=== PATIENT | female | born 1975 | race Two or more races ===

== ENCOUNTER 2020-12-30 11:01 | Outpatient (REF) | payer OTHER, SELFPAY ==
--- NOTE | ~2020-12-30 | MM_ITS ---
EXAMINATION: MM SCREENING DIGITAL BREAST TOMOSYNTHESIS, BILATERAL CLINICAL INFORMATION: Screening. Asymptomatic. The lifetime risk of breast cancer based on the Tyrer-Cuzick Model is 13%. COMPARISON: Mammography: 07/27/2019, 07/24/2018, 07/22/2017, 07/17/2016 TECHNIQUE: Digital breast tomosynthesis is performed in both the craniocaudal and mediolateral oblique views along with computer-aided detection (CAD). Synthesized 2D images are generated from the tomosynthesis. FINDINGS: There are scattered areas of fibroglandular density (ACR BI-RADS breast composition Category b). Parenchymal pattern is similar to prior exams. There is no developing density, interval mass, architectural abnormality. No abnormal calcifications. Skin contours are smooth. Axillary nodes are similar. MM/MM tomosynthesis screening BI IMPRESSION: No significant changes from prior studies. ASSESSMENT: BI-RADS 1: Negative RECOMMENDATION: Routine annual mammography screening. This patient's information was entered into a reminder system with a target due date for their next mammogram.
== END 2020-12-30 11:02 | disposition home or self-care (01) ==
LOC: HO.MAMMO 11:01
PROVIDERS: Visit Provider Student in an Organized Health Care Education/Training Program
DX: Z12.31 Encounter for screening mammogram for malignant neoplasm of breast (principal)
CPT/HCPCS: 77063; 77067

== ENCOUNTER 2022-01-05 12:57 | Outpatient (REF) | payer OTHER, SELFPAY ==
--- NOTE | ~2022-01-05 | MM_ITS ---
EXAMINATION: MM SCREENING DIGITAL BREAST TOMOSYNTHESIS, BILATERAL CLINICAL INFORMATION: Screening. Asymptomatic. The lifetime risk of breast cancer based on the Tyrer-Cuzick Model is 11%. COMPARISON: Mammography: 12/30/2020, 07/27/2019, 07/24/2018 TECHNIQUE: Digital breast tomosynthesis is performed in both the craniocaudal and mediolateral oblique views along with computer-aided detection (CAD). Synthesized 2D images are generated from the tomosynthesis. FINDINGS: There are scattered areas of fibroglandular density (ACR BI-RADS breast composition Category b). There are no significant masses, abnormal calcifications, or other abnormalities. Parenchymal pattern is similar to prior studies. Benign tightly grouped coarse calcifications anterior left breast are again noted. The skin contours are smooth. There are no significant changes from prior studies. MM/MM tomosynthesis screening BI IMPRESSION: No mammographic evidence of malignancy. ASSESSMENT: BI-RADS 2: Benign RECOMMENDATION: Routine annual mammography screening. This patient's information was entered into a reminder system with a target due date for their next mammogram.
== END 2022-01-05 12:58 | disposition home or self-care (01) ==
LOC: HO.MAMMO 12:57
PROVIDERS: PCP Student in an Organized Health Care Education/Training Program; Visit Provider Student in an Organized Health Care Education/Training Program
DX: Z12.31 Encounter for screening mammogram for malignant neoplasm of breast (principal)
CPT/HCPCS: 77063; 77067

== ENCOUNTER 2022-08-15 | Outpatient (REF) | payer OTHER, SELFPAY ==
--- NOTE | ~2022-08-15 | XR_ITS ---
EXAMINATION: XR AP BILATERAL KNEE. XR KNEE, RIGHT CLINICAL INFORMATION: Pain right knee. COMPARISON: AP bilateral knee and right knee 05/27/2019. TECHNIQUE: AP bilateral knee standing and right knee 2 views. FINDINGS: AP bilateral knee: There is mild loss of medial compartment joint space. The lateral compartment joint space is normal. No visible acute fracture, dislocation or subluxation seen. There are no loose bodies seen. No bony erosive changes seen. Right knee: The patellofemoral compartment joint space is preserved. No visible acute fracture, dislocation or joint effusion. No gross bony abnormality. XR/XR knee RT 2V IMPRESSION: 1. Mild loss of medial compartment joint space both knees. No visible acute fracture, dislocation or subluxation seen. Loss of joint space in both knees is unchanged compared to 05/27/2019 exam. 2. Unremarkable right knee exam.
--- NOTE | ~2022-08-15 | XR_ITS ---
EXAMINATION: XR AP BILATERAL KNEE. XR KNEE, RIGHT CLINICAL INFORMATION: Pain right knee. COMPARISON: AP bilateral knee and right knee 05/27/2019. TECHNIQUE: AP bilateral knee standing and right knee 2 views. FINDINGS: AP bilateral knee: There is mild loss of medial compartment joint space. The lateral compartment joint space is normal. No visible acute fracture, dislocation or subluxation seen. There are no loose bodies seen. No bony erosive changes seen. Right knee: The patellofemoral compartment joint space is preserved. No visible acute fracture, dislocation or joint effusion. No gross bony abnormality. XR/XR knee standing BI IMPRESSION: 1. Mild loss of medial compartment joint space both knees. No visible acute fracture, dislocation or subluxation seen. Loss of joint space in both knees is unchanged compared to 05/27/2019 exam. 2. Unremarkable right knee exam.
== END 2022-08-15 00:01 | disposition home or self-care (01) ==
LOC: HO.HOSX
PROVIDERS: Visit Provider Physician Assistant
DX: M17.11 Unilateral primary osteoarthritis, right knee (principal); M25.562 Pain in left knee
CPT/HCPCS: 20610; 73560; 73565; 99202; J1040

== ENCOUNTER 2022-12-17 16:32 | Outpatient (REF) | payer OTHER, SELFPAY ==
--- NOTE | ~2022-12-17 | XR_ITS ---
EXAMINATION: XR KNEE, LEFT CLINICAL INFORMATION: Left knee pain COMPARISON: 08/15/2022 TECHNIQUE: Lateral and sunrise views of the left knee. FINDINGS: Minimal marginal osteophyte formation in the patellofemoral compartment. No joint effusion. No obvious fracture. XR/XR knee LT 2V IMPRESSION: Minimal patellofemoral compartment osteoarthritis.
== END 2022-12-17 16:33 | disposition home or self-care (01) ==
LOC: HO.HOSX 16:32
PROVIDERS: Visit Provider Physician Assistant
DX: M17.12 Unilateral primary osteoarthritis, left knee (principal); M25.561 Pain in right knee
CPT/HCPCS: 20610; 73560; 99212; J1040

== ENCOUNTER 2023-01-07 14:10 | Outpatient (REF) | payer OTHER, SELFPAY ==
--- NOTE | ~2023-01-07 | MM_ITS ---
EXAMINATION: MM SCREENING DIGITAL BREAST TOMOSYNTHESIS, BILATERAL CLINICAL INFORMATION: Screening. Asymptomatic. Family history breast cancer, mother. The lifetime risk of breast cancer based on the Tyrer-Cuzick Model is 17%. COMPARISON: Multiple prior mammography, most recent 12/07/2021. TECHNIQUE: Digital breast tomosynthesis is performed in both the craniocaudal and mediolateral oblique views along with computer-aided detection (CAD). Synthesized 2D images are generated from the tomosynthesis. FINDINGS: There are scattered areas of fibroglandular density (ACR BI-RADS breast composition Category b). There are no significant masses, abnormal calcifications, or other abnormalities. No architectural abnormality or developing density. Benign coarse calcifications again seen retroareolar left breast. The skin contours are smooth. There are no significant changes from prior studies. MM/MM tomosynthesis screening BI IMPRESSION: No mammographic evidence of malignancy. ASSESSMENT: BI-RADS 2: Benign RECOMMENDATION: Routine annual mammography screening. This patient's information was entered into a reminder system with a target due date for their next mammogram.
== END 2023-01-07 14:11 | disposition home or self-care (01) ==
LOC: HO.MAMMO 14:10
PROVIDERS: PCP Student in an Organized Health Care Education/Training Program; Visit Provider Student in an Organized Health Care Education/Training Program
DX: Z12.31 Encounter for screening mammogram for malignant neoplasm of breast (principal); M17.11 Unilateral primary osteoarthritis, right knee
CPT/HCPCS: 20610; 77063; 77067; J7323

== ENCOUNTER → 2023-01-14 13:04 | Outpatient (BNVA) | payer OTHER, SELFPAY | PROVIDERS: PCP Student in an Organized Health Care Education/Training Program; Visit Provider Physician Assistant | DX: M17.11 Unilateral primary osteoarthritis, right knee (principal) | CPT/HCPCS: 20610; J7323 ==

== ENCOUNTER → 2023-01-21 13:55 | Outpatient (BNVA) | payer OTHER, SELFPAY | PROVIDERS: PCP Student in an Organized Health Care Education/Training Program; Visit Provider Physician Assistant | DX: M17.11 Unilateral primary osteoarthritis, right knee (principal) | CPT/HCPCS: 20610; J7323 ==

== ENCOUNTER 2023-02-11 13:00 | Outpatient (RCR) | payer OTHER, SELFPAY ==
--- NOTE | 2023-01-10 12:48 | MHC.PT.EP ---
[facility] [place] Office [place] Office [place] Office [address] Laurie Andrade [address] [phone] F: [phone] F: [phone] F: [phone] F: [phone] Physical Therapy Plan of Care Date of Evaluation: Date of Surgery: NA Diagnosis: GEM KNEE PAIN (KP) Assessment: TAYLOR IS A 47 YO FEMALE, CURRENTLY NOT WORKING - ON DISABILITY. SHE REPORTS KNEE PAIN BEGINNING APROX 9 YEARS AGO, NO FLORENCIA. UNDERWENT RIGHT KNEE AT THAT TIME FOLLOWED BY PT BUT STATES IT ONLY MADE HER WORSE AND FLAIRED UP HER LUPUS. THE KNEE HAS BEEN WORSENING AND NOW THE LEFT KNEE IS BEGINNING TO BE PAINFUL WELL. SHE STATES THAT HER LEGS WILL FREQUENTLY GIVE OUT AND SHE HAS FALLEN. HER PMH IS SIGNIFICANT FOR FMS, OA, LUPUS, SJOGREN'S SYNDROME, LUPUS INDUCED VERTIGO, NEUROPATHY, KNEE , RIGHT THUMB SURGERY, HYSTERECTOMY AND GALL BLADDER REMOVAL. SHE STATES THAT SHE CAN TAKE MONTHS TO RECOVER AFTER A LUPUS FLAIR UP AND THAT IN GENERAL EVERYDAY ACTIVITIES INCREASE HER PAIN AND WEAR ME OUT . SHE LIVES IN AN APARTMENT WITH HER SON WHO IS ABLE TO ASSIST HER. OF NOTE SHE ALSO REPORTS 7 FAMILY MEMBERS LAST YEAR AND 2 MORE THIS YEAR. 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 UPON EXAM IMPAIRMENTS INCLUDE DECREASED ROM OF LOW BACK, HIPS AND KNEES, DECREASED LE STRENGTH, ALTERED MUSCULAR LENGTH AND STRENGTH IMBALANCES FOSTERING POOR MOVEMENT PATTERNS AND ALTERED POSTURE, DECREASED SOFT TISSUE MOBILITY AND INCREASED PAIN. FUNCTIONALLY SHE IS LIMITED WITH SELF CARE AND HOMEMAKING TASKS, DECREASED ABILITY TO PERFORM LIFTING, REACHING, PUSHING, PULLING AND SQUATTING. SHE REPORTS DECREASED ABILITY TO PARTICIPATE IN COMMUNITY AND FITNESS ACTIVITIES AND HAS DISRUPTED SLEEP. 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 Manual therapy to restore motion and function. Therapeutic exercise to improve strength and flexibility. Neuromuscular re-education for posture and balance. Therapeutic activities to return to functional activities of daily living. Electronically signed by: FREDRICK CHAVIRA PT DPT Please sign and return to therapist. Thank you for your referral.
--- NOTE | 2023-05-09 07:59 | MHC.PT.DC ---
[facility] [place] Office [place] Office [place] Office [address] Laurie Andrade [address] [phone] F: [phone] F: [phone] F: [phone] F: [phone] Physical Therapy Discharge Report Diagnosis: GEM KNEE PAIN (KP) Date of Surgery: NA Date of Evaluation: 01/10/23 Date of Discharge: 03/25/23 Treatments to Date: 6 Cancellations to Date: 0 No Shows to Date: 0 Discharge Status: Discharge Summary: 02/11 pt was seen for 6 sessions of PT. Sebastián. Gentle LE ex only. Unable to progress ther ex at this time as pt feels it Flares her Lupus . Plan discussed last session with primary PT and pt. At this time pt requests d/c from PT. Pt encouraged to seek out Lupus care and support. Electronically signed by: Catie Snell PT DPT Please sign and return to therapist. Thank you for your referral.
== END 2023-05-09 07:59 | disposition home or self-care (01) ==
LOC: HO.PT 13:00
PROVIDERS: Visit Provider Podiatrist
DX: M17.12 Unilateral primary osteoarthritis, left knee (principal)
CPT/HCPCS: 97110; 97163; 97530

== ENCOUNTER 2023-06-27 13:36 | Outpatient (AMB) | payer OTHER, SELFPAY ==
[2023-06-27 13:39] VITALS: BP 122/84; PULSE 81; O2SAT 98; BMI 36.3
--- NOTE | 2023-06-27 13:39 | A.OFFVIS_ITS ---
Intake Vital Signs 06/27/23 13:39 Height 5 ft 6 in Weight 224 lb 13.944 oz BMI 36.3 BP 122/84 Blood Pressure Location Rt brachial Position Sitting Pulse 81 Pulse Source Doppler Pulse Oximetry (%) 98 Oxygen Delivery Method Room Air Intake Visit Reasons: Asthma Allergies No Known Allergies Allergy (Verified 06/27/23 13:43) HPI Asthma HPI Details 48-year-old lady, active 5 pack-year smoker, with underlying history of flu post on hydroxychloroquine, environmental allergies under environmental health sanitarian care, asthma, and possible pulmonary nodules referred for pulmonary evaluation. 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 She has had a recent 2D echocardiogram at [facility], and pulmonary function test at [facility]. She complains of lower extremity edema, orthopnea, and dyspnea on exertion. She is using Symbicort 80 and albuterol MDI 2 to 3 times a day. Patient is also on Lety, loratadine, hydroxyzine, and Zyrtec. Patient states that she has multiple relatives with different types of cancer, including maternal aunt and maternal grandfather with lung cancer. She denies exposure to industrial dusts. [facility] Medical History (Updated 06/27/23 @ 14:14 by Seth Gama MD) Anxiety and depression Asthma Discoid lupus Fibromyalgia GERD (gastroesophageal reflux disease) H/O Sjogren's disease Lupus Migraine Neuropathy Vertigo Social History Patient Tobacco Use Status: Current everyday Tobacco user Cigarettes Per Day: 7 Current occupational status: unemployed Review of Systems Const Denies daytime sleepiness, Denies excessive sweating, Denies fatigue, Denies fever(s), Denies lethargy, Denies malaise, Denies night sweats, Denies snoring and Denies weight loss Eyes Denies blurry vision and Denies itchy eyes ENT Denies nasal congestion, Denies post nasal drip, Denies sinus pain, Denies sinus pressure and Denies other ( Thrush) Card Denies chest pain, Reports pedal edema, Denies dyspnea, Reports dyspnea on exertion, Denies orthopnea and Denies paroxysmal nocturnal dyspnea Resp Denies cough, Denies hemoptysis, Denies excessive phlegm production, Denies dyspnea, Reports dyspnea on exertion, Denies snoring and Denies wheezing GI Denies abdominal pain and Denies heartburn Musc Denies myalgias, Denies arthralgias and Denies joint swelling Skin/Breast Denies rash Neuro Denies memory loss and Denies seizure-like activity Psych Denies abnormal sleep pattern, Denies anxiety and Denies memory loss Endo Denies excessive sweating, Denies fatigue and Denies heat intolerance Tuan/Lymph Denies easy bruising Aller/Immun Denies itchy eyes, Denies seasonal rhinorrhea and Denies wheezing Physical Exam Vital Signs: Last Vital Signs Pulse 81 06/27/23 13:39 BP 122/84 06/27/23 13:39 Pulse Ox 98 06/27/23 13:39 Oxygen Delivery Method Room Air 06/27/23 13:39 BMI result Body Mass Index 36.3 Const General: no acute distress and alert Nutritional Appearance: not obese Orientation/consciousness: Other orientation findings ( oriented) HEENT Head: Yes atraumatic Eyes General: appearance normal, both eyes and all related structures Sclerae: sclerae normal EOM: EOMs intact bilaterally Neck Neck: Yes supple Lymphatic: no lymphadenopathy noted Resp Effort & Inspection: normal respiratory effort and no use of accessory muscles Auscultation: clear to auscultation bilaterally Cardio Rate: regular rate Rhythm: regular rhythm Heart sounds: no gallops, no murmurs and no rubs Skin General skin exam: other ( warm) Extrem General: No clubbing, No cyanosis and Yes edema (1+ bilateral) Assessment & Plan Assessment & Plan (1) Dyspnea on exertion: Code(s): R06.09 - Other forms of dyspnea Plan: Likely multifactorial with contribution from underlying pulmonary, cardiac, and obesity/deconditioning etiologies. Will request 2D echo results from [facility]. (2) Lupus: Code(s): M32.9 - Systemic lupus erythematosus, unspecified Plan: Underlying low post with possible lung involvement currently hydroxychloroquine. Will obtain CT chest for further evaluation. (3) Asthma: Code(s): J45.909 - Unspecified asthma, uncomplicated Plan: Underlying possible asthma appears to be reasonably controlled on Symbicort 80 and albuterol MDI. Continue current regimen. Orders: Orders CT chest wo IV con Today M32.9 - Systemic lupus erythematosus, unspecified Coding Level of Care Code New Pt Level 4 (82531) Diagnoses Dyspnea on exertion R06.09 Lupus M32.9 Asthma J45.909
== END 2023-06-27 14:07 | disposition home or self-care (01) ==
PROVIDERS: PCP Student in an Organized Health Care Education/Training Program; Visit Provider Internal Medicine Pulmonary Disease
DX: R06.09 Other forms of dyspnea (principal); M32.9 Systemic lupus erythematosus, unspecified; J45.909 Unspecified asthma, uncomplicated
CPT/HCPCS: 99204

== ENCOUNTER → 2023-06-27 13:36 | Outpatient (BNVA) | payer OTHER, SELFPAY | PROVIDERS: PCP Student in an Organized Health Care Education/Training Program; Visit Provider Internal Medicine Pulmonary Disease | DX: J45.909 Unspecified asthma, uncomplicated (principal); R06.09 Other forms of dyspnea; M32.9 Systemic lupus erythematosus, unspecified; Z79.899 Other long term (current) drug therapy | CPT/HCPCS: 99202 ==

== ENCOUNTER 2023-07-18 13:51 | Outpatient (REF) | payer OTHER, SELFPAY ==
--- NOTE | ~2023-07-18 | CT_ITS ---
EXAMINATION: CT CHEST WITHOUT CONTRAST CLINICAL INFORMATION: Systemic lupus COMPARISON: Previous chest x-ray most recent July 2015 TECHNIQUE: Multidetector volumetric CT imaging of the chest was done. Axial MIP volume rendering provided. Sagittal and coronal reformatted images were obtained. This CT examination was performed using dose optimization techniques as appropriate, variously including the following: *Automated exposure control *Adjustment of mA and/or kV according to patient size (this includes techniques or standardized protocols for targeted exams where dose is matched to indication/reason for exam; i.e. 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 These appear peribronchiolar centrilobular in distribution. Largest nodules measure 2 to 3 mm. No bronchiectasis. 4 mm peripheral or subpleural right lower lobe nodule axial image 295 series 5 probably representing a subpleural lymph node. The lungs are otherwise clear. No increased interstitial markings. No emphysema. No endobronchial or endotracheal lesion. MEDIASTINUM: Small mediastinal lymph nodes. No enlarged lymph nodes. Normal heart size. No pericardial effusion. CORONARY ARTERY CALCIFICATION: None visualized on this study. PLEURA: There is no pleural effusion. No pleural mass or thickening. AXILLA: Upper normal-size bilateral axillary lymph nodes. No chest wall mass. UPPER ABDOMEN: Fatty liver. The gallbladder has been removed. OSSEOUS STRUCTURES: Unremarkable. CT/CT chest wo IV con IMPRESSION: Innumerable small predominantly upper lobe centrilobular peribronchial semisolid nodules largest measuring 2 to 3 mm. Differential would include bronchiolitis related to smoking, airways disease, pneumoconiosis, granulomatous disease and hypersensitivity pneumonitis. No evidence of basilar interstitial lung disease characteristic of lupus involvement. Fleischner guidelines were followed.
== END 2023-07-18 13:52 | disposition home or self-care (01) ==
LOC: HO.CT 13:51
PROVIDERS: PCP Student in an Organized Health Care Education/Training Program; Visit Provider Internal Medicine Pulmonary Disease
DX: M32.9 Systemic lupus erythematosus, unspecified (principal)
CPT/HCPCS: 71250

== ENCOUNTER 2023-08-01 14:11 | Outpatient (AMB) | payer OTHER, SELFPAY ==
[2023-08-01 14:12] VITALS: BP 110/67; PULSE 97; O2SAT 97; BMI 36.3
--- NOTE | 2023-08-01 14:12 | A.OFFVIS_ITS ---
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 She has had a recent 2D echocardiogram at [facility], and pulmonary function test at [facility]. She complains of lower extremity edema, orthopnea, and dyspnea on exertion. She is using Symbicort 80 and albuterol MDI 2 to 3 times a day. Patient is also on Lety, loratadine, hydroxyzine, and Zyrtec. Patient states that she has multiple relatives with different types of cancer, including maternal aunt and maternal grandfather with lung cancer. She denies exposure to industrial dusts. After the last office visit she had her CT chest that showed findings consistent with respiratory bronchiolitis versus extrinsic allergic alveolitis. She also complains of worsening lupus symptoms. 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 [facility] Medical History (Updated 08/01/23 @ 14:58 by Seth Gama MD) GERD (gastroesophageal reflux disease) Vertigo Asthma Migraine Anxiety and depression Fibromyalgia Neuropathy H/O Sjogren's disease Discoid lupus Lupus Social History Patient Tobacco Use Status: Current everyday Tobacco user Cigarettes Per Day: 7 Current occupational status: unemployed Review of Systems Const Denies daytime sleepiness, Denies excessive sweating, Denies fatigue, Denies fever(s), Denies lethargy, Denies malaise, Denies night sweats, Denies snoring and Denies weight loss Eyes Denies blurry vision and Denies itchy eyes ENT Denies nasal congestion, Denies post nasal drip, Denies sinus pain, Denies sinus pressure and Denies other ( Thrush) Card Denies chest pain, Denies pedal edema, Denies dyspnea, Denies orthopnea and Denies paroxysmal nocturnal dyspnea Resp Denies cough, Denies hemoptysis, Denies excessive phlegm production, Denies dyspnea, Denies snoring and Denies wheezing GI Denies abdominal pain and Denies heartburn Musc Reports myalgias, Reports arthralgias and Denies joint swelling Skin/Breast Denies rash Neuro Denies memory loss and Denies seizure-like activity Psych Denies abnormal sleep pattern, Denies anxiety and Denies memory loss Endo Denies excessive sweating, Denies fatigue and Denies heat intolerance Tuan/Lymph Denies easy bruising Aller/Immun Denies itchy eyes, Denies seasonal rhinorrhea and Denies wheezing Physical Exam Vital Signs: Last Vital Signs Pulse 97 08/01/23 14:12 BP 110/67 08/01/23 14:12 Pulse Ox 97 08/01/23 14:12 Oxygen Delivery Method Room Air 08/01/23 14:12 BMI result Body Mass Index 36.3 Const General: no acute distress and alert Nutritional Appearance: obese Orientation/consciousness: Other orientation findings ( oriented) HEENT Head: Yes atraumatic Eyes General: appearance normal, both eyes and all related structures Sclerae: sclerae normal EOM: EOMs intact bilaterally Neck Neck: Yes supple Lymphatic: no lymphadenopathy noted Resp Effort & Inspection: normal respiratory effort and no use of accessory muscles Auscultation: clear to auscultation bilaterally Cardio Rate: regular rate Rhythm: regular rhythm Heart sounds: no gallops, no murmurs and no rubs Skin General skin exam: other ( warm) Extrem General: No clubbing, No cyanosis and No edema Assessment & Plan Assessment & Plan (1) Respiratory bronchiolitis associated interstitial lung disease: Code(s): J84.115 - Respiratory bronchiolitis interstitial lung disease (2) Dyspnea on exertion: Code(s): R06.09 - Other forms of dyspnea (3) Asthma: Code(s): J45.909 - Unspecified asthma, uncomplicated (4) Lupus: Code(s): M32.9 - Systemic lupus erythematosus, unspecified Plan CT scan with findings consistent with respiratory bronchiolitis versus extrinsic allergic alveolitis. Will start prednisone 40 mg daily for 30 days and reassess. Patient is interested in 2 switching Rheumatology to [facility]. Will request a consultation. Will continue on Symbicort and albuterol MDI/nebs. Orders: Referrals Rheumatology Referral M32.9 - Systemic lupus erythematosus, unspecified Medications: New prednisone 40 mg (2 x 20 mg) PO DAILY 60 tabs 0RF 30 days Coding Level of Care Code Est Pt Level 4 (07962) Diagnoses Respiratory bronchiolitis associated interstitial lung disease J84.115 Dyspnea on exertion R06.09 Asthma J45.909 Lupus M32.9
== END 2023-08-01 14:39 | disposition home or self-care (01) ==
PROVIDERS: PCP Student in an Organized Health Care Education/Training Program; Visit Provider Internal Medicine Pulmonary Disease
DX: J84.115 Respiratory bronchiolitis interstitial lung disease (principal); R06.09 Other forms of dyspnea; J45.909 Unspecified asthma, uncomplicated; M32.9 Systemic lupus erythematosus, unspecified
CPT/HCPCS: 99214

== ENCOUNTER → 2023-08-01 14:11 | Outpatient (BNVA) | payer OTHER, SELFPAY | PROVIDERS: PCP Student in an Organized Health Care Education/Training Program; Visit Provider Internal Medicine Pulmonary Disease | DX: J84.115 Respiratory bronchiolitis interstitial lung disease (principal); R06.09 Other forms of dyspnea; J45.909 Unspecified asthma, uncomplicated; M32.9 Systemic lupus erythematosus, unspecified | CPT/HCPCS: 99212 ==

== ENCOUNTER 2023-08-28 14:50 | Outpatient (AMB) | payer OTHER, SELFPAY ==
[2023-08-28 14:54] VITALS: BP 142/70; PULSE 89; TEMP 36.4; O2SAT 96; BMI 37.3
--- NOTE | 2023-08-28 14:54 | MHC.OFFVIS ---
Intake Vital Signs 08/28/23 14:54 Height 5 ft 6 in Weight 231 lb 0.711 oz BMI 37.3 BP 142/70 H Blood Pressure Location Rt brachial Position Sitting Pulse 89 Pulse Source Pulse Oximeter Temp 97.6 F Temp Source Skin Pulse Oximetry (%) 96 Oxygen Delivery Method Room Air Intake Visit Reasons: Sle Intake Note: New patient referred to us for SLE. Former patient of Dr. Pineda, [facility]. Last seen early this year. Military Equipment Specialist Required: No Accompanied by: Self / Same As Patient Allergies No Known Allergies Allergy (Verified 08/28/23 15:00) Medication List - Last Reconciled 08/28/23 by Seamus Fung MD acetaminophen 1,000 mg PO Q8H PRN albuterol sulfate mg inhalation Q6H PRN albuterol sulfate 90 mcg/actuation (Ventolin HFA) 2 puffs inhalation ONCE PRN alclometasone 0.05% appl topical BID PRN amitriptyline 10 mg PO BEDTIME betamethasone dipropionate 0.05% topical BID PRN budesonide-formoterol 80-4.5 mcg/actuation (Symbicort) 1 puff inhalation BID PRN cetirizine 10 mg PO DAILY ciclopirox 1% topical clobetasol 0.05% 1 appl topical BID clonazepam 1 mg PO TID PRN clonidine HCl 0 mg PO CPAP As directed cyanocobalamin (vitamin B-12) 500 mcg PO DAILY diclofenac sodium 1% topical BID duloxetine 30 mg PO BID famotidine 20 mg PO BID fexofenadine 180 mg PO DAILY fluocinonide 0.05% appl topical BID PRN fluticasone propionate 220 mcg/actuation (Flovent HFA) inhalation hydrocortisone 2.5% topical hydroxychloroquine 200 mg PO BID hydroxyzine HCl 25 mg PO Q8H PRN lidocaine 5% 1 patch topical DAILY PRN loratadine 10 mg PO BID losartan 50 mg PO DAILY meclizine 25 mg PO TID PRN mirabegron ER (Myrbetriq) 50 mg PO DAILY montelukast 10 mg PO QPM omeprazole 20 mg PO DAILY ondansetron HCl 8 mg PO DAILY peg 3350-electrolytes 236-22.74-6.74 -5.86 gram (GaviLyte-G) mL PO pilocarpine HCl 5 mg PO QID prednisone 40 mg (2 x 20 mg) PO DAILY 30 days pregabalin 200 mg PO BID riboflavin (vitamin B2) 400 mg PO DAILY riboflavin (vitamin B2) 100 mg PO DAILY risperidone 2 mg PO BEDTIME rizatriptan mg PO HPI HPI Comments History of Present Illness Details This is a 48-year-old female with a past medical history of SLE who presents as a new patient. Patient used to follow-up with Dr. Pineda. She was unable to get an appointment with dr. Marquez at his new practice. She states that she was diagnosed with SLE around 17 years ago when she developed a butterfly rash and diffuse joint pain. She stated that she was treated with prednisone consistently at 5 mg daily for about 8 years. She was also started on hydroxychloroquine. She has been on hydroxychloroquine since her diagnosis. She states that she took methotrexate for 2 months about 7 years ago and according to patient she lost her smell and taste afterwards. He was told that this was likely a side effect of methotrexate. It did not recover when methotrexate was discontinued. Five years ago she was on Benlysta infusions for about 8 months. She stated that was helping reduce the frequency of her flare-ups, but eventually it became ineffective. Per patient 5 years ago patient presented to the hospital with right lower extremity DVT. According to patient she was on blood thinners for some time. States that she has been wearing compression stockings for about 10 years. Patient was recently evaluated by a quantitative manager for respiratory bronchiolitis versus extrinsic allergic alveolitis and was started on prednisone 40 mg daily a month ago with improvement of her joint pain. [facility] Medical History (Updated 08/28/23 @ 15:53 by Seamus Fung MD) Dvt femoral (deep venous thrombosis) Gout GERD (gastroesophageal reflux disease) Vertigo Asthma Migraine Anxiety and depression Fibromyalgia Neuropathy H/O Sjogren's disease Discoid lupus Lupus Surgical History Hx of hysterectomy Hx of thumb surgery Hx of knee surgery Family History Other Arthritis Lupus Social History Household Members: None Alcohol intake: former Patient Tobacco Use Status: Current everyday Tobacco user Cigarettes Per Day: 7 Current occupational status: unemployed Female Reproductive History Menstrual Total pregnancies: 4 Number of Living Children: 4 Review of Systems Const Reports weight gain Eyes Reports dry eyes Card Reports dyspnea Resp Reports dyspnea GI Reports constipation and Reports heartburn Musc Reports arthralgias, Reports joint swelling and Reports stiffness Skin/Breast Reports alopecia and Reports rash Psych Reports abnormal sleep pattern, Reports anxiety and Reports depression Physical Exam Vital Signs: Last Vital Signs Temp 97.6 F 08/28/23 14:54 Pulse 89 08/28/23 14:54 BP 142/70 H 08/28/23 14:54 Pulse Ox 96 08/28/23 14:54 Oxygen Delivery Method Room Air 08/28/23 14:54 BMI result Body Mass Index 37.3 Const General: cooperative, healthy appearing and comfortable Nutritional Appearance: obese morbidly obese Orientation/consciousness: patient oriented x3 Limitations: ambulation with cane HEENT Head: Yes normocephalic and Yes atraumatic Mouth: moist mucous membranes Resp Effort & Inspection: normal respiratory effort and able to speak in complete sentences Auscultation: clear to auscultation bilaterally Cardio Rate: regular rate Skin Other: Hypopigmented and hyperpigmented rashes on face. No active rashes Neuro General: patient oriented x3 Extrem Other: Multiple fibromyalgia tender points No active synovitis Normal nailfold capillaroscopy Assessment & Plan Assessment & Plan (1) Lupus: Code(s): M32.9 - Systemic lupus erythematosus, unspecified Plan: This is a 48-year-old female who presents for evaluation of SLE. Per patient it was diagnosed 17 years ago, she initially presented with a butterfly rash and diffuse joint pain. She has been on hydroxychloroquine throughout. Was on prednisone consistently for 8 years then, it was use only as needed for flare-ups. She could not tolerate methotrexate and according to patient Benlysta lost effectiveness after 8 months. Patient is on 40 mg of prednisone prescribed by Pulmonary for a bronchiolitis episode. Likely the majority of her lupus symptoms are masked. Check basic labs. Will retrieve records from patient's previous outer diameter grinder Dr. Collazo Continue hydroxychloroquine 200 mg Twice daily. Refilled Patient will see her sash sticker soon. Advised patient to ask them to fax me their office report Follow-up in 1 month Plan I spent 46 minutes reviewing patient's chart, evaluating patient, ordering diagnostic workup, counseling patient and documenting in the chart Orders: Orders C Reactive Protein Today M32.9 - Systemic lupus erythematosus, unspecified T Spot TB Today Z11.7 - Encounter for testing for latent tuberculosis infection Immunofixation Pnl, Serum Today M32.9 - Systemic lupus erythematosus, unspecified Protein Electrophoresis, Serum Today M32.9 - Systemic lupus erythematosus, unspecified Anti DNA DS Antibody Today M32.9 - Systemic lupus erythematosus, unspecified Rheumatoid Factor Today M25.50 - Pain in unspecified joint Cyclic Citrullinated Peptide Today M25.50 - Pain in unspecified joint Beta-2 Glycoprotein Antibody Today I82.419 - Acute embolism and thrombosis of unspecified femoral vein Cardiolipin Antibodies Today I82.419 - Acute embolism and thrombosis of unspecified femoral vein Complete Blood Count Auto Diff Today M32.9 - Systemic lupus erythematosus, unspecified Comprehensive Met. Panel Today M32.9 - Systemic lupus erythematosus, unspecified Erythrocyte Sedimentation Rate Today M32.9 - Systemic lupus erythematosus, unspecified Hepatitis A,B,C Profile Today Z11.59 - Encounter for screening for other viral diseases TALISHA Reflex Titer and Pattern Today M32.9 - Systemic lupus erythematosus, unspecified Anti Extractable Nuclear Ag Today M32.9 - Systemic lupus erythematosus, unspecified Complement C3 Today M32.9 - Systemic lupus erythematosus, unspecified Complement C4 Today M32.9 - Systemic lupus erythematosus, unspecified Protein Creatinine Ratio, Ur Today M32.9 - Systemic lupus erythematosus, unspecified Sjogren's Antibodies Today M32.9 - Systemic lupus erythematosus, unspecified UA w Microscopic Today M32.9 - Systemic lupus erythematosus, unspecified Lupus Anticoagulant Panel Today I82.419 - Acute embolism and thrombosis of unspecified femoral vein Thiopurine Methyltransferase Today Z51.81 - Encounter for therapeutic drug level monitoring, Z79.624 - superintendent marine oil terminal (current) use of inhibitors of nucleotide synthesis Medications: New hydroxychloroquine 200 mg PO BID 180 tabs 1RF Coding Level of Care Code New Pt Level 4 (22850) Diagnoses Lupus M32.9
== END 2023-08-28 15:44 | disposition home or self-care (01) ==
PROVIDERS: PCP Student in an Organized Health Care Education/Training Program; Referring Provider Student in an Organized Health Care Education/Training Program; Visit Provider Student in an Organized Health Care Education/Training Program
DX: M32.9 Systemic lupus erythematosus, unspecified (principal)
CPT/HCPCS: 99204

== ENCOUNTER 2023-08-28 14:50 | Outpatient (REF) | payer OTHER, SELFPAY ==
[2023-08-28 16:26] LABS: MANUAL DIFF FLAG NO
[2023-08-28 16:28] LABS: Basophils Absolute Auto 0.1 X10*3/uL (0.0-0.2); Basophils Percent Auto 0.4 % (0-2); Eosinophils Absolute Auto 0.2 X10*3/uL (0.0-0.4); Eosinophils Percent Auto 1.4 % (0-4); Hematocrit 37.9 % (37.0-47.0); Hemoglobin 12.5 g/dl (12.0-16.0); Imm Gran Abs Auto 0.09 X10*3/uL (0.00-0.03); Imm Gran Pct Auto 0.6 % (0.0-0.4); Lymphocytes Absolute Auto 2.4 X10*3/uL (1.2-4.9); Lymphocytes Percent Auto 15.1 % (20-40); Mean Corpuscular Hemoglobin 30.2 pg (27.0-33.0); Mean Corpuscular Volume 91.5 fL (80.0-98.0); Mean Platelet Volume 11.6 fL (9.4-12.3); Monocytes Absolute Auto 0.6 X10*3/uL (0.1-1.2); Neutrophils Absolute Auto 12.2 x10*3/uL (2.0-8.3); Neutrophils Percent Auto 78.5 % (45-73); Platelet Count 222 X10*3/uL (160-400); Red Blood Count 4.14 X10*6/uL (4.20-5.50); Red Cell Distribution Width 14.3 % (11.0-16.0); White Blood Count 15.6 X10*3/uL (4.8-10.8)
[2023-08-28 16:50] LABS: Rheumatoid Factor < 13.0 IU/mL (<15.0)
[2023-08-28 16:59] LABS: Alanine Aminotransferase 39 U/L (0-31); Albumin Level 3.7 g/dL (3.5-5.0); Alkaline Phosphatase 50 U/L (39-117); Anion Gap 13 (12-20); Aspartate Amino Transferase 16 U/L (5-31); Bilirubin Total 0.2 mg/dL (0.0-1.0); C Reactive Protein 0.86 mg/dL (< or = 0.50); Calcium 8.8 mg/dL (8.4-10.2); Carbon Dioxide 22 mmol/L (22-29); Chloride 105 mmol/L (96-108); Estimated Glomerular Filt Rate > 60; Glucose Random 124 mg/dL (60-115); Potassium 3.8 mmol/L (3.3-5.1); Sodium 136 mmol/L (135-145); Total Protein 7.2 g/dL (6.5-8.0)
[2023-08-28 17:08] LABS: Erythrocyte Sedimentation Rate 13 MM/HR (0-20)
[2023-08-28 17:25] LABS: Appearance Urine Clear; Color Urine Yellow; Glucose Urine UA Negative (Negative); Leukocyte Esterase Urine Negative (Negative); Nitrite Urine Negative (Negative); PH 5.5 (5.0-9.0); Specific Gravity - Urine 1.025 (1.005-1.025); Urine Blood Negative (Negative); Urine Ketones Trace mg/dL (Negative); Urine Protein Negative (Neg-Trace)
[2023-08-28 17:28] LABS: Bacteria Urine Trace (None Seen); Hyaline Casts Urine 0-2 /LPF (0-2); Squamous Epithelial Cell Urine 0-2 /HPF (0-2); WBC Urine 0-5 /HPF (0-5)
[2023-08-28 17:38] LABS: Protein/Creatinine Ratio, Ur 0.06 (<0.2); Total Protein Urine Random 11 mg/dL (<12)
[2023-08-28 17:52] LABS: Blood Urea Nitrogen 13 mg/dL (9-16)
[2023-08-29 04:27] LABS: HBS Num1 6.43 mIU/mL (0-7.99); HBc Num1 0.08 S/CO (0.00-0.79); HBsAGNum1 0.27 S/CO (0.00-0.99); Hepatitis A Antibody IgM 0.19 Index (0-0.79); Hepatitis B Core Antibody Nonreactive (Nonreactive); Hepatitis B Surface Antigen Negative (Negative); ~HepC Num1 0.05 S/CO (0.00-0.79); ~Hepatitis A Antibody IgM Nonreactive (Nonreactive); ~Hepatitis B Surface Antibody NONREACTIVE (Nonreactive); ~Hepatitis C Antibody Nonreactive (Nonreactive)
[2023-08-29 20:13] LABS: Complement C3 116 mg/dL (83-193)
[2023-08-30 11:58] LABS: Cyclic Citrullinated Peptide <16 UNITS
[2023-08-30 12:58] LABS: Anti DNA DS Antibody 3 IU/mL; Antibody to SS-A Antigen >8.0 POS AI (<1.0 NEG); Antibody to SS-B Antigen <1.0 NEG AI (<1.0 NEG); Cardiolipin IgG Ab <2.0 GPL-U/mL; Cardiolipin IgM Ab <2.0 MPL-U/mL; SM/Ribonucleoprotein Ab >8.0 POS AI (<1.0 NEG); Smith Protein >8.0 POS AI (<1.0 NEG)
[2023-08-31 14:24] LABS: TS Negative Control Passed; TS Panel A 0; TS Panel B 0; TS Positive Control Passed; TSpotTB Negative (Negative)
[2023-09-02 11:33] LABS: Prot Elec - Albumin 4.4 g/dL (3.8-4.8); Prot Elec - Alpha1 0.2 g/dL (0.2-0.3); Prot Elec - Alpha2 0.5 g/dL (0.5-0.9); Prot Elec - Beta 1 0.4 g/dL (0.4-0.6); Prot Elec - Beta 2 0.4 g/dL (0.2-0.5); Prot Elec - Gamma 1.1 g/dL (0.8-1.7)
[2023-09-02 14:43] LABS: Anti Nuclear Antibody Screen POSITIVE (NEGATIVE)
[2023-09-03 05:24] LABS: PTT (LAC) Screen 35 sec (<=40)
[2023-09-03 12:29] LABS: IgA 344 mg/dL (47-310); IgG 1511 mg/dL (600-1640); IgM 64 mg/dL (50-300)
[2023-09-04 13:14] LABS: Beta-2 Glycoprotein IgG <2.0 U/mL (<20.0); Beta-2 Glycoprotein IgM <2.0 U/mL (<20.0)
[2023-09-12 21:54] LABS: TPMT Activity 9
== END 2023-08-28 14:51 | disposition home or self-care (01) ==
LOC: HO.LAB 14:50
PROVIDERS: PCP Student in an Organized Health Care Education/Training Program; Referring Provider Student in an Organized Health Care Education/Training Program; Visit Provider Student in an Organized Health Care Education/Training Program
DX: M32.9 Systemic lupus erythematosus, unspecified (principal); M25.50 Pain in unspecified joint; Z11.7 Encounter for testing for latent tuberculosis infection; Z11.59 Encounter for screening for other viral diseases; Z51.81 Encounter for therapeutic drug level monitoring; Z79.624 Long term (current) use of inhibitors of nucleotide synthesis; Z79.899 Other long term (current) drug therapy; Z86.718 Personal history of other venous thrombosis and embolism
CPT/HCPCS: 36415; 80053; 81001; 82570; 82784; 84156; 84165; 84433; 85025; 85597; 85598; 85613; 85652; 85730; 86038; 86039; 86140; 86146; 86147; 86160; 86200; 86225; 86235; 86334; 86431; 86481; 86704; 86706; 86709; 86803; 87340; 99202

== ENCOUNTER 2023-08-29 13:51 | Outpatient (AMB) | payer OTHER, SELFPAY ==
[2023-08-29 13:52] VITALS: BP 102/60; PULSE 89; O2SAT 98; BMI 37.2
--- NOTE | 2023-08-29 13:52 | A.OFFVIS_ITS ---
Intake Vital Signs 08/29/23 13:52 Height 5 ft 6 in Weight 230 lb 6.129 oz BMI 37.2 BP 102/60 Blood Pressure Location Lt brachial Position Sitting Pulse 89 Pulse Source Doppler Pulse Oximetry (%) 98 Oxygen Delivery Method Room Air Intake Visit Reasons: Asthma Allergies No Known Allergies Allergy (Verified 08/29/23 13:57) HPI Asthma HPI Details 48-year-old lady, active 5 pack-year smo ker, with underlying history of flu post on hydroxychloroquine, environmental allergies under cutter finisher care, asthma, and possible pulmonary nodules referred for pulmonary evaluation. After the last office visit patient has been started on prednisone 40 mg daily and now states that her symptoms have improved significantly. She did switch her mechanical integrity specialist to [facility]. Patient does have underlying obstructive sleep apnea with recent significant changes in weight and a remote sleep study. [facility] Medical History (Updated 08/29/23 @ 14:11 by Seth Gama MD) Dvt femoral (deep venous thrombosis) Gout GERD (gastroesophageal reflux disease) Vertigo Asthma Migraine Anxiety and depression Fibromyalgia Neuropathy H/O Sjogren's disease Discoid lupus Lupus Surgical History Hx of hysterectomy Hx of thumb surgery Hx of knee surgery Family History Other Arthritis Lupus Social History Household Members: None Alcohol intake: former Patient Tobacco Use Status: Current everyday Tobacco user Cigarettes Per Day: 7 Current occupational status: unemployed Review of Systems Const Denies daytime sleepiness, Denies excessive sweating, Denies fatigue, Denies fever(s), Denies lethargy, Denies malaise, Denies night sweats, Denies snoring and Denies weight loss Eyes Denies blurry vision and Denies itchy eyes ENT Denies nasal congestion, Denies post nasal drip, Denies sinus pain, Denies sinus pressure and Denies other ( Thrush) Card Denies chest pain, Denies pedal edema, Denies dyspnea, Denies orthopnea and Denies paroxysmal nocturnal dyspnea Resp Denies cough, Denies hemoptysis, Denies excessive phlegm production, Denies dyspnea, Denies snoring and Denies wheezing GI Denies abdominal pain and Denies heartburn Musc Denies myalgias, Denies arthralgias and Denies joint swelling Skin/Breast Denies rash Neuro Denies memory loss and Denies seizure-like activity Psych Denies abnormal sleep pattern, Denies anxiety and Denies memory loss Endo Denies excessive sweating, Denies fatigue and Denies heat intolerance Tuan/Lymph Denies easy bruising Aller/Immun Denies itchy eyes, Denies seasonal rhinorrhea and Denies wheezing Physical Exam Vital Signs: Last Vital Signs Pulse 89 08/29/23 13:52 BP 102/60 08/29/23 13:52 Pulse Ox 98 08/29/23 13:52 Oxygen Delivery Method Room Air 08/29/23 13:52 BMI result Body Mass Index 37.2 Const General: no acute distress and alert Nutritional Appearance: obese Orientation/consciousness: Other orientation findings ( oriented) HEENT Head: Yes atraumatic Eyes General: appearance normal, both eyes and all related structures Sclerae: sclerae normal EOM: EOMs intact bilaterally Neck Neck: Yes supple Lymphatic: no lymphadenopathy noted Resp Effort & Inspection: normal respiratory effort and no use of accessory muscles Auscultation: clear to auscultation bilaterally Cardio Rate: regular rate Rhythm: regular rhythm Heart sounds: no gallops, no murmurs and no rubs Skin General skin exam: other ( warm) Extrem General: No clubbing, No cyanosis and No edema Assessment & Plan Assessment & Plan (1) Respiratory bronchiolitis associated interstitial lung disease: Code(s): J84.115 - Respiratory bronchiolitis interstitial lung disease Plan: Versus extrinsic allergy test. Symptomatically with significant improvement on prednisone 40 mg daily. Will start on weekly taper. If remains mostly symptom free off prednisone, will consider repeating CT chest. (2) AIRAM (obstructive sleep apnea): Code(s): G47.33 - Obstructive sleep apnea (adult) (pediatric) Plan: Remote sleep study in 2016, recent UA changes and unrestful sleep. Williams Sleepiness Scale score of 15. Will obtain home sleep study. Orders: Orders RT home sleep study Today G47.33 - Obstructive sleep apnea (adult) (pediatric) Medications: New prednisone Take 3 tabs daily for 7 days, then Take 2 tabs daily for 7 days, then Take 1 tab daily for 7 days, then Take 1/2 tab daily for 7 days. 10 mg PO DIRECTED 46 tabs 0RF G47.33 - Obstructive sleep apnea (adult) (pediatric) Discontinued 2 prednisone Discontinued Reason: Doctor's Order 40 mg (2 x 20 mg) PO DAILY 60 tabs 0RF 30 days Coding Level of Care Code Est Pt Level 4 (59397) Diagnoses Respiratory bronchiolitis associated interstitial lung disease J84.115 AIRAM (obstructive sleep apnea) G47.33
== END 2023-08-29 14:08 | disposition home or self-care (01) ==
PROVIDERS: PCP Student in an Organized Health Care Education/Training Program; Visit Provider Internal Medicine Pulmonary Disease
DX: J84.115 Respiratory bronchiolitis interstitial lung disease (principal); G47.33 Obstructive sleep apnea (adult) (pediatric)
CPT/HCPCS: 99214

== ENCOUNTER → 2023-08-29 13:51 | Outpatient (BNVA) | payer OTHER, SELFPAY | PROVIDERS: PCP Student in an Organized Health Care Education/Training Program; Visit Provider Internal Medicine Pulmonary Disease | DX: J84.115 Respiratory bronchiolitis interstitial lung disease (principal); G47.33 Obstructive sleep apnea (adult) (pediatric) | CPT/HCPCS: 99212 ==

== ENCOUNTER 2023-09-18 11:39 | Outpatient (AMB) | payer OTHER, SELFPAY ==
[2023-09-18 11:51] VITALS: BP 126/78; PULSE 74; TEMP 36.4; O2SAT 100; BMI 38.1
--- NOTE | 2023-09-18 11:51 | A.OFFVIS_ITS ---
Intake Vital Signs 09/18/23 11:51 Height 5 ft 6 in Weight 235 lb 14.314 oz BMI 38.1 BP 126/78 Blood Pressure Location Rt brachial Position Sitting Pulse 74 Pulse Source Pulse Oximeter Temp 97.5 F Temp Source Skin Pulse Oximetry (%) 100 Intake Visit Reasons: SLE Intake Note: Pt last seen 08/28/23, presents today for follow up and test results. Talent Development Coordinator Required: No Accompanied by: Self / Same As Patient Allergies No Known Allergies Allergy (Verified 09/18/23 11:54) Medication List - Last Reconciled 09/18/23 by Seamus Fung MD acetaminophen 1,000 mg PO Q8H PRN albuterol sulfate mg inhalation Q6H PRN albuterol sulfate 90 mcg/actuation (Ventolin HFA) 2 puffs inhalation ONCE PRN alclometasone 0.05% appl topical BID PRN amitriptyline 10 mg PO BEDTIME betamethasone dipropionate 0.05% topical BID PRN budesonide-formoterol 80-4.5 mcg/actuation (Symbicort) 1 puff inhalation BID PRN cetirizine 10 mg PO DAILY ciclopirox 1% topical clobetasol 0.05% 1 appl topical BID clonazepam 1 mg PO TID PRN clonidine HCl 0 mg PO CPAP As directed cyanocobalamin (vitamin B-12) 500 mcg PO DAILY diclofenac sodium 1% topical BID duloxetine 30 mg PO BID famotidine 20 mg PO BID fexofenadine 180 mg PO DAILY fluocinonide 0.05% appl topical BID PRN fluticasone propionate 220 mcg/actuation (Flovent HFA) inhalation hydrocortisone 2.5% topical hydroxychloroquine 200 mg PO BID hydroxyzine HCl 25 mg PO Q8H PRN lidocaine 5% 1 patch topical DAILY PRN loratadine 10 mg PO BID losartan 50 mg PO DAILY meclizine 25 mg PO TID PRN mirabegron ER (Myrbetriq) 50 mg PO DAILY montelukast 10 mg PO QPM omeprazole 20 mg PO DAILY ondansetron HCl 8 mg PO DAILY peg 3350-electrolytes 236-22.74-6.74 -5.86 gram (GaviLyte-G) mL PO pilocarpine HCl 5 mg PO QID prednisone 10 mg PO DIRECTED pregabalin 200 mg PO BID riboflavin (vitamin B2) 400 mg PO DAILY riboflavin (vitamin B2) 100 mg PO DAILY risperidone 2 mg PO BEDTIME rizatriptan mg PO HPI HPI Comments History of Present Illness Details 48-year-old female with SLE returns for follow-up. States that she was recently evaluated by Pulmonary and her prednisone dose is being tapered. She is currently on 15 mg of prednisone. Patient states that she feels like she has generalized swelling overall. Swelling in her skin, in her joints and her entire body. She has pain in her elbows, wrists, right knee. Stated that the rashes have all resolved since starting the prednisone. States that she has had knee pain for many years. She had multiple steroid injections as well as arthroscopy. Stated that she had gel injections last year which helped for about 6 months. States that her right knee pain is coming back. Initial history: This is a 48-year-old female with a past medical history of SLE who presents as a new patient. Patient used to follow-up with Dr. Pineda. She was unable to get an appointment with dr. Marquez at his new practice. She states that she was diagnosed with SLE around 17 years ago when she developed a butterfly rash and diffuse joint pain. She stated that she was treated with prednisone consistently at 5 mg daily for about 8 years. She was also started on hydroxychloroquine. She has been on hydroxychloroquine since her diagnosis. She states that she took methotrexate for 2 months about 7 years ago and according to patient she lost her smell and taste afterwards. He was told that this was likely a side effect of methotrexate. It did not recover when methotrexate was discontinued. Five years ago she was on Benlysta infusions for about 8 months. She stated that was helping reduce the frequency of her flare-ups, but eventually it became ineffective. Per patient 5 years ago patient presented to the hospital with right lower extremity DVT. According to patient she was on blood thinners for some time. States that she has been wearing compression stockings for about 10 years. Patient was recently evaluated by a plant equipment engineer for respiratory bronchiolitis versus extrinsic allergic alveolitis and was started on prednisone 40 mg daily a month ago with improvement of her joint pain. [facility] Medical History Dvt femoral (deep venous thrombosis) Gout GERD (gastroesophageal reflux disease) Vertigo Asthma Migraine Anxiety and depression Fibromyalgia Neuropathy H/O Sjogren's disease Discoid lupus Lupus Surgical History Hx of hysterectomy Hx of thumb surgery Hx of knee surgery Family History Other Arthritis Lupus Social History Household Members: None Alcohol intake: former Patient Tobacco Use Status: Current everyday Tobacco user Cigarettes Per Day: 7 Current occupational status: unemployed Review of Systems Const Reports weight gain Musc Reports arthralgias, Reports joint swelling, Reports limited range of motion and Reports stiffness Physical Exam Vital Signs: Last Vital Signs Temp 97.5 F 09/18/23 11:51 Pulse 74 09/18/23 11:51 BP 126/78 09/18/23 11:51 Pulse Ox 100 09/18/23 11:51 BMI result Body Mass Index 38.1 Const General: cooperative, healthy appearing and comfortable Nutritional Appearance: obese morbidly obese Orientation/consciousness: patient oriented x3 Limitations: ambulation with cane HEENT Head: Yes normocephalic and Yes atraumatic Mouth: moist mucous membranes Resp Effort & Inspection: normal respiratory effort and able to speak in complete sentences Auscultation: clear to auscultation bilaterally Cardio Rate: regular rate Skin Other: Hypopigmented and hyperpigmented rashes on face. No active rashes Neuro General: patient oriented x3 Extrem Other: Multiple fibromyalgia tender points Mild swelling over the left lateral epicondyle with some tenderness to palpation and positive resisted wrist extension test Bilateral wrist pain with flexion and extension Mild bilateral wrist tenderness without significant swelling Right knee pain with any range of motion Assessment & Plan Assessment & Plan (1) Lupus: Code(s): M32.9 - Systemic lupus erythematosus, unspecified Plan: This is a 48-year-old female with SLE who presents for follow-up. Per patient it was diagnosed 17 years ago, she initially presented with a butterfly rash and diffuse joint pain. She has been on hydroxychloroquine throughout. Was on prednisone consistently for 8 years then, it was use only as needed for flare- ups. She could not tolerate methotrexate and according to patient Benlysta lost effectiveness after 8 months. Patient is currently on a prednisone taper for bronchiolitis prescribed by Pulmonary. She is starting to have some joint pain as the prednisone is being tapered Re-evaluate in 4 weeks. Labs before next visit. Will discuss other DMARDs such as [place]hen[place] Continue hydroxychloroquine 200 mg Twice daily. Follow-up in 1 month (2) Left tennis elbow: Code(s): M77.12 - Lateral epicondylitis, left elbow Plan: Prescribed an elbow brace, patient is not interested in occupational therapy at the moment (3) Osteoarthritis of right knee: Code(s): M17.11 - Unilateral primary osteoarthritis, right knee Qualifiers: Osteoarthritis type: primary Qualified Code(s): M17.11 - Unilateral primary osteoarthritis, right knee Plan: Follow-up with orthopedic Plan I spent 36 minutes reviewing patient's chart, evaluating patient, ordering diagnostic workup, counseling patient and documenting in the chart Orders: Orders UA w Microscopic 4 Weeks M32.9 - Systemic lupus erythematosus, unspecified C Reactive Protein 4 Weeks M32.9 - Systemic lupus erythematosus, unspecified Erythrocyte Sedimentation Rate 4 Weeks M32.9 - Systemic lupus erythematosus, unspecified Anti DNA DS Antibody 4 Weeks M32.9 - Systemic lupus erythematosus, unspecified Complement C3 4 Weeks M32.9 - Systemic lupus erythematosus, unspecified Complement C4 4 Weeks M32.9 - Systemic lupus erythematosus, unspecified Protein Creatinine Ratio, Ur 4 Weeks M32.9 - Systemic lupus erythematosus, unspecified Complete Blood Count Auto Diff 4 Weeks M32.9 - Systemic lupus erythematosus, unspecified Comprehensive Met. Panel 4 Weeks M32.9 - Systemic lupus erythematosus, unspecified Medications: New arm brace (DAMON Elbow Brace) as directed 1 ea 0RF M77.12 - Lateral epicondylitis, left elbow arm brace (DAMON Elbow Brace) as directed 1 ea 0RF M77.12 - Lateral epicondylitis, left elbow Coding Level of Care Code Est Pt Level 4 (00385) Diagnoses Lupus M32.9 Left tennis elbow M77.12 Primary osteoarthritis of right knee M17.11 Osteoarthritis type: primary
== END 2023-09-18 12:38 | disposition home or self-care (01) ==
PROVIDERS: PCP Student in an Organized Health Care Education/Training Program; Visit Provider Student in an Organized Health Care Education/Training Program
DX: M32.9 Systemic lupus erythematosus, unspecified (principal); M77.12 Lateral epicondylitis, left elbow; M17.11 Unilateral primary osteoarthritis, right knee
CPT/HCPCS: 99214

== ENCOUNTER → 2023-09-18 11:39 | Outpatient (BNVA) | payer OTHER, SELFPAY | PROVIDERS: PCP Student in an Organized Health Care Education/Training Program; Visit Provider Student in an Organized Health Care Education/Training Program | DX: M32.9 Systemic lupus erythematosus, unspecified (principal); M17.11 Unilateral primary osteoarthritis, right knee; M77.12 Lateral epicondylitis, left elbow; Z79.52 Long term (current) use of systemic steroids | CPT/HCPCS: 99212 ==

== ENCOUNTER → 2023-10-21 12:39 | Outpatient (REF) | payer OTHER, SELFPAY ==
[2023-10-21 13:08] LABS: MANUAL DIFF FLAG NO
[2023-10-21 14:06] LABS: Alanine Aminotransferase 35 U/L (0-31); Alkaline Phosphatase 48 U/L (39-117); Anion Gap 12 (12-20); Aspartate Amino Transferase 24 U/L (5-31); Bilirubin Total 0.2 mg/dL (0.0-1.0); Blood Urea Nitrogen 7 mg/dL (9-16); C Reactive Protein 1.17 mg/dL (< or = 0.50); Calcium 9.3 mg/dL (8.4-10.2); Carbon Dioxide 25 mmol/L (22-29); Chloride 104 mmol/L (96-108); Estimated Glomerular Filt Rate > 60; Glucose Random 88 mg/dL (60-115); Potassium 3.8 mmol/L (3.3-5.1); Sodium 137 mmol/L (135-145); Total Protein 7.9 g/dL (6.5-8.0)
[2023-10-21 14:08] LABS: Basophils Absolute Auto 0.1 X10*3/uL (0.0-0.2); Basophils Percent Auto 0.9 % (0-2); Eosinophils Absolute Auto 0.2 X10*3/uL (0.0-0.4); Eosinophils Percent Auto 3.6 % (0-4); Hematocrit 37.7 % (37.0-47.0); Hemoglobin 12.5 g/dl (12.0-16.0); Imm Gran Abs Auto 0.02 X10*3/uL (0.00-0.03); Imm Gran Pct Auto 0.4 % (0.0-0.4); Lymphocytes Absolute Auto 1.4 X10*3/uL (1.2-4.9); Lymphocytes Percent Auto 25.1 % (20-40); Mean Corpuscular HGB Conc 33.2 g/dl (31.0-35.0); Mean Corpuscular Volume 90.4 fL (80.0-98.0); Mean Platelet Volume 11.8 fL (9.4-12.3); Monocytes Absolute Auto 0.4 X10*3/uL (0.1-1.2); Monocytes Percent Auto 6.8 % (2-11); Neutrophils Absolute Auto 3.5 x10*3/uL (2.0-8.3); Neutrophils Percent Auto 63.2 % (45-73); Platelet Count 285 X10*3/uL (160-400); Red Blood Count 4.17 X10*6/uL (4.20-5.50); White Blood Count 5.6 X10*3/uL (4.8-10.8)
[2023-10-21 14:36] LABS: Erythrocyte Sedimentation Rate 30 MM/HR (0-20)
[2023-10-21 15:29] LABS: Appearance Urine Clear; Color Urine Yellow; Glucose Urine UA Negative (Negative); Leukocyte Esterase Urine Negative (Negative); Nitrite Urine Negative (Negative); PH 7.5 (5.0-9.0); Urine Blood Negative (Negative); Urine Ketones Negative (Negative); Urine Protein Negative (Neg-Trace)
[2023-10-21 15:33] LABS: Bacteria Urine Trace (None Seen); Hyaline Casts Urine 0-2 /LPF (0-2); RBC Urine 0-2 /HPF (0-2); Squamous Epithelial Cell Urine 0-2 /HPF (0-2); WBC Urine 0-5 /HPF (0-5)
[2023-10-21 16:13] LABS: Creatinine Urine 36.75 mg/dL; Total Protein Urine Random < 7 mg/dL (<12)
[2023-10-22 22:58] LABS: Anti DNA DS Antibody 3 IU/mL
[2023-10-23 18:18] LABS: Complement C3 123 mg/dL (83-193)
== END ==
LOC: HO.SL 12:39
PROVIDERS: PCP Student in an Organized Health Care Education/Training Program; Referring Provider Student in an Organized Health Care Education/Training Program; Visit Provider Internal Medicine Pulmonary Disease
DX: M32.9 Systemic lupus erythematosus, unspecified (principal); G47.33 Obstructive sleep apnea (adult) (pediatric)
CPT/HCPCS: 36415; 80053; 81001; 82570; 84156; 85025; 85652; 86140; 86160; 86225; 95806

== ENCOUNTER → 2023-10-21 13:59 | Outpatient (BNV) | payer OTHER, SELFPAY | PROVIDERS: PCP Student in an Organized Health Care Education/Training Program; Referring Provider Student in an Organized Health Care Education/Training Program; Visit Provider Internal Medicine | DX: G47.33 Obstructive sleep apnea (adult) (pediatric) (principal) | CPT/HCPCS: 95806 ==

== ENCOUNTER 2023-10-29 14:35 | Outpatient (AMB) | payer OTHER, SELFPAY ==
--- NOTE | 2023-10-29 14:40 | MHC.OFFVIS ---
Intake Vital Signs 10/29/23 14:48 Height 5 ft 6 in Weight 240 lb 15.444 oz BMI 38.9 BP 136/82 Blood Pressure Location Rt brachial Position Sitting Pulse 98 Pulse Source Pulse Oximeter Temp 97.3 F Temp Source Skin Pulse Oximetry (%) 99 Oxygen Delivery Method Room Air Intake Visit Reasons: SLE Intake Note: Pt last seen 09/18/23 presents today for follow up and test results. 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 Accompanied by: Self / Same As Patient Allergies No Known Allergies Allergy (Verified 10/29/23 14:43) Medication List - Last Reconciled 10/29/23 by Seamus Fung MD acetaminophen 1,000 mg PO Q8H PRN albuterol sulfate mg inhalation Q6H PRN albuterol sulfate 90 mcg/actuation (Ventolin HFA) 2 puffs inhalation ONCE PRN alclometasone 0.05% appl topical BID PRN amitriptyline 10 mg PO BEDTIME arm brace (DAMON Elbow Brace) as directed betamethasone dipropionate 0.05% topical BID PRN budesonide-formoterol 80-4.5 mcg/actuation (Symbicort) 1 puff inhalation BID PRN cetirizine 10 mg PO DAILY ciclopirox 1% topical clobetasol 0.05% 1 appl topical BID clonazepam 1 mg PO TID PRN clonidine HCl 0 mg PO CPAP As directed cyanocobalamin (vitamin B-12) 500 mcg PO DAILY diclofenac sodium 1% topical BID duloxetine 30 mg PO BID famotidine 20 mg PO BID fexofenadine 180 mg PO DAILY fluocinonide 0.05% appl topical BID PRN fluticasone propionate 220 mcg/actuation (Flovent HFA) inhalation hydrocortisone 2.5% topical hydroxychloroquine 200 mg PO BID hydroxyzine HCl 25 mg PO Q8H PRN lidocaine 5% 1 patch topical DAILY PRN loratadine 10 mg PO BID losartan 50 mg PO DAILY meclizine 25 mg PO TID PRN mirabegron ER (Myrbetriq) 50 mg PO DAILY montelukast 10 mg PO QPM omeprazole 20 mg PO DAILY ondansetron HCl 8 mg PO DAILY peg 3350-electrolytes 236-22.74-6.74 -5.86 gram (GaviLyte-G) mL PO pilocarpine HCl 5 mg PO QID pregabalin 200 mg PO BID riboflavin (vitamin B2) 400 mg PO DAILY riboflavin (vitamin B2) 100 mg PO DAILY risperidone 2 mg PO BEDTIME rizatriptan mg PO HPI HPI Comments History of Present Illness Details 48-year-old female with SLE returns for follow-up. Prednisone has been tapered off about 3 weeks ago. She states that she had an upper respiratory tract infection about a week ago with nasal congestion and cough. It is resolving now. She states that recently she has been having neck and upper back and chest tightness, it is usually worse in the morning, improves throughout the day then comes back at night. She tried multiple topical treatments without much improvement, compliant with hydroxychloroquine 200 mg Twice daily Initial history: This is a 48-year-old female with a past medical history of SLE who presents as a new patient. Patient used to follow-up with Dr. Pineda. She was unable to get an appointment with dr. Marquez at his new practice. She states that she was diagnosed with SLE around 17 years ago when she developed a butterfly rash and diffuse joint pain. She stated that she was treated with prednisone consistently at 5 mg daily for about 8 years. She was also started on hydroxychloroquine. She has been on hydroxychloroquine since her diagnosis. She states that she took methotrexate for 2 months about 7 years ago and according to patient she lost her smell and taste afterwards. He was told that this was likely a side effect of methotrexate. It did not recover when methotrexate was discontinued. Five years ago she was on Benlysta infusions for about 8 months. She stated that was helping reduce the frequency of her flare-ups, but eventually it became ineffective. Per patient 5 years ago patient presented to the hospital with right lower extremity DVT. According to patient she was on blood thinners for some time. States that she has been wearing compression stockings for about 10 years. Patient was recently evaluated by a guard supervisor for respiratory bronchiolitis versus extrinsic allergic alveolitis and was started on prednisone 40 mg daily a month ago with improvement of her joint pain. [facility] Medical History Dvt femoral (deep venous thrombosis) Gout GERD (gastroesophageal reflux disease) Vertigo Asthma Migraine Anxiety and depression Fibromyalgia Neuropathy H/O Sjogren's disease Discoid lupus Lupus Surgical History Hx of hysterectomy Hx of thumb surgery Hx of knee surgery Family History Other Arthritis Lupus Social History Household Members: None Alcohol intake: former Patient Tobacco Use Status: Current everyday Tobacco user Cigarettes Per Day: 7 Current occupational status: unemployed Review of Systems [facility] [place] Reports arthralgias and Reports stiffness Physical Exam Vital Signs: Last Vital Signs Temp 97.3 F 10/29/23 14:48 Pulse 98 10/29/23 14:48 BP 136/82 10/29/23 14:48 Pulse Ox 99 10/29/23 14:48 Oxygen Delivery Method Room Air 10/29/23 14:48 BMI result Body Mass Index 38.9 Const General: cooperative, healthy appearing and comfortable Nutritional Appearance: obese morbidly obese Orientation/consciousness: patient oriented x3 Limitations: ambulation with cane HEENT Head: Yes normocephalic and Yes atraumatic Mouth: moist mucous membranes Resp Effort & Inspection: normal respiratory effort and able to speak in complete sentences Auscultation: clear to auscultation bilaterally Cardio Rate: regular rate Skin Other: Hypopigmented and hyperpigmented rashes on face. No active rashes Neuro General: patient oriented x3 Extrem Other: Tenderness upon palpation of the cervical paraspinal muscles as well as trapezius muscles. Some muscle tightness No limitation of movement on neck rotation bilaterally as well as neck flexion and extension, neck lateral flexion bilaterally Some reproduction of pain with neck rotation to the left Negative Spurling's test bilaterally Bilateral pain with passive shoulder abduction Multiple fibromyalgia tender points No swollen or tender joints on palpation Assessment & Plan Assessment & Plan (1) Lupus: Code(s): M32.9 - Systemic lupus erythematosus, unspecified Plan: This is a 48-year-old female with SLE who presents for follow-up. Per patient it was diagnosed 17 years ago, she initially presented with a butterfly rash and diffuse joint pain. She has been on hydroxychloroquine throughout. Was on prednisone consistently for 8 years then, it was use only as needed for flare-ups. She could not tolerate methotrexate and according to patient Benlysta lost effectiveness after 8 months. Today patient is complaining of bilateral neck, upper shoulder and back, chest stiffness and tightness. Will prescribe Flexeril. Advised patient that it can make her dizzy/groggy/lightheaded. Advised patient not to drive or operate heavy machinery if feeling as such Continue hydroxychloroquine 200 mg Twice daily. Follow-up in 6 weeks Plan I spent 26 minutes reviewing patient's chart, evaluating patient, counseling patient and documenting in the chart Medications: New cyclobenzaprine Take 1-2 tabs nightly as needed for muscle spasm. Can cause dizziness-grogginess/lightheadedness. Do not drive or operate heavy machinery if you have such side effects 30 tabs 0RF muscle spasm Coding Level of Care Code Est Pt Level 4 (50874) Diagnoses Lupus M32.9
[2023-10-29 14:48] VITALS: BP 136/82; PULSE 98; TEMP 36.3; O2SAT 99; BMI 38.9
== END 2023-10-29 15:27 | disposition home or self-care (01) ==
PROVIDERS: PCP Student in an Organized Health Care Education/Training Program; Visit Provider Student in an Organized Health Care Education/Training Program
DX: M32.9 Systemic lupus erythematosus, unspecified (principal)
CPT/HCPCS: 99214

== ENCOUNTER → 2023-10-29 14:35 | Outpatient (BNVA) | payer OTHER, SELFPAY | PROVIDERS: PCP Student in an Organized Health Care Education/Training Program; Visit Provider Student in an Organized Health Care Education/Training Program | DX: M32.9 Systemic lupus erythematosus, unspecified (principal) | CPT/HCPCS: 99212 ==

== ENCOUNTER 2023-11-06 10:31 | Outpatient (AMB) | payer OTHER, SELFPAY ==
[2023-11-06 10:39] VITALS: BP 102/64; PULSE 90; O2SAT 98; BMI 38.2
--- NOTE | 2023-11-06 10:39 | MHC.OFFVIS ---
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 After the last office visit patient has been titrated off prednisone with no recurrence of her prior symptoms. She also has completed her sleep study that shows underlying severe sleep apnea with AHI of 37. PFSH Medical History Dvt femoral (deep venous thrombosis) Gout GERD (gastroesophageal reflux disease) Vertigo Asthma Migraine Anxiety and depression Fibromyalgia Neuropathy H/O Sjogren's disease Discoid lupus Lupus Surgical History Hx of hysterectomy Hx of thumb surgery Hx of knee surgery Family History Other Arthritis Lupus Social History Household Members: None Alcohol intake: former Patient Tobacco Use Status: Current everyday Tobacco user Cigarettes Per Day: 7 Current occupational status: unemployed Review of Systems Const Denies daytime sleepiness, Denies excessive sweating, Denies fatigue, Denies fever(s), Denies lethargy, Denies malaise, Denies night sweats, Denies snoring and Denies weight loss Eyes Denies blurry vision and Denies itchy eyes ENT Denies nasal congestion, Denies post nasal drip, Denies sinus pain, Denies sinus pressure and Denies other ( Thrush) Card Denies chest pain, Denies pedal edema, Denies dyspnea, Denies orthopnea and Denies paroxysmal nocturnal dyspnea Resp Denies cough, Denies hemoptysis, Denies excessive phlegm production, Denies dyspnea, Denies snoring and Denies wheezing GI Denies abdominal pain and Denies heartburn Musc Denies myalgias, Denies arthralgias and Denies joint swelling Skin/Breast Denies rash Neuro Denies memory loss and Denies seizure-like activity Psych Denies abnormal sleep pattern, Denies anxiety and Denies memory loss Endo Denies excessive sweating, Denies fatigue and Denies heat intolerance Tuan/Lymph Denies easy bruising Aller/Immun Denies itchy eyes, Denies seasonal rhinorrhea and Denies wheezing Physical Exam Vital Signs: Last Vital Signs Pulse 90 11/06/23 10:39 BP 102/64 11/06/23 10:39 Pulse Ox 98 11/06/23 10:39 Oxygen Delivery Method Room Air 11/06/23 10:39 BMI result Body Mass Index 38.2 Const General: no acute distress and alert Nutritional Appearance: not obese Orientation/consciousness: Other orientation findings ( oriented) HEENT Head: Yes atraumatic Eyes General: appearance normal, both eyes and all related structures Sclerae: sclerae normal EOM: EOMs intact bilaterally Neck Neck: Yes supple Lymphatic: no lymphadenopathy noted Resp Effort & Inspection: normal respiratory effort and no use of accessory muscles Auscultation: clear to auscultation bilaterally Cardio Rate: regular rate Rhythm: regular rhythm Heart sounds: no gallops, no murmurs and no rubs Skin General skin exam: other ( warm) Extrem General: No clubbing, No cyanosis and No edema Assessment & Plan Assessment & Plan (1) Respiratory bronchiolitis associated interstitial lung disease: Code(s): J84.115 - Respiratory bronchiolitis interstitial lung disease Plan: No recurrence of symptoms off prednisone. Will repeat CT chest. (2) AIRAM (obstructive sleep apnea): Code(s): G47.33 - Obstructive sleep apnea (adult) (pediatric) Plan: Results of sleep study reviewed, underlying severe obstructive sleep apnea. Will order APAP of 6-16 cm of water. Orders: Orders CT chest wo IV con Today J84.115 - Respiratory bronchiolitis interstitial lung disease Coding Level of Care Code Est Pt Level 4 (28759) Diagnoses Respiratory bronchiolitis associated interstitial lung disease J84.115 AIRAM (obstructive sleep apnea) G47.33
== END 2023-11-06 11:36 | disposition home or self-care (01) ==
PROVIDERS: PCP Student in an Organized Health Care Education/Training Program; Visit Provider Internal Medicine Pulmonary Disease
DX: J84.115 Respiratory bronchiolitis interstitial lung disease (principal); G47.33 Obstructive sleep apnea (adult) (pediatric)
CPT/HCPCS: 99214

== ENCOUNTER → 2023-11-06 10:31 | Outpatient (BNVA) | payer OTHER, SELFPAY | PROVIDERS: PCP Student in an Organized Health Care Education/Training Program; Visit Provider Internal Medicine Pulmonary Disease | DX: J84.115 Respiratory bronchiolitis interstitial lung disease (principal); G47.33 Obstructive sleep apnea (adult) (pediatric) | CPT/HCPCS: 99212 ==

== ENCOUNTER 2023-11-29 14:59 | Outpatient (REF) | payer OTHER, SELFPAY ==
--- NOTE | ~2023-11-29 | CT_ITS ---
EXAMINATION: CT CHEST WITHOUT CONTRAST CLINICAL INFORMATION: Respiratory bronchiolitis interstitial lung disease. COMPARISON: 07/18/2023 TECHNIQUE: Multidetector volumetric CT imaging of the chest was done. Axial MIP volume rendering provided. Sagittal and coronal reformatted images were obtained. This CT examination was performed using dose optimization techniques as appropriate, variously including the following: *Automated exposure control *Adjustment of mA and/or kV according to patient size (this includes techniques or standardized protocols for targeted exams where dose is matched to indication/reason for exam; i.e. extremities or head) *Use of iterative reconstruction technique DLP: 228 mGy-cm FINDINGS: LUNGS: There are numerous small semisolid nodules greatest in the upper lobes. These appear peribronchiolar centrilobular in distribution. Largest nodules measure 2 to 3 mm. The lungs are otherwise clear. No bronchiectasis. No thickening of the interlobular septa. No emphysema. No endobronchial or endotracheal lesion. MEDIASTINUM: No bulky mediastinal or hilar lymphadenopathy. Great vessels are of normal caliber. Heart size is normal. No pericardial effusion. CORONARY ARTERY CALCIFICATION: None visualized on this study. PLEURA: There is no pleural effusion. No pleural mass or thickening. AXILLA: Enlarged bilateral axillary lymph nodes. UPPER ABDOMEN: Hepatic steatosis. Status post cholecystectomy. No adrenal mass. OSSEOUS STRUCTURES: No destructive bone lesions. CT/CT chest wo IV con IMPRESSION: No significant interval change in numerous small predominantly upper lobe centrilobular peribronchial semisolid nodules largest measuring 2 to 3 mm. Diagnostic considerations include smoking-related respiratory bronchiolitis, chronic airways disease, pneumoconiosis, and hypersensitivity pneumonitis.
== END 2023-11-29 15:00 | disposition home or self-care (01) ==
LOC: HO.CT 14:59
PROVIDERS: PCP Student in an Organized Health Care Education/Training Program; Visit Provider Internal Medicine Pulmonary Disease
DX: J84.115 Respiratory bronchiolitis interstitial lung disease (principal)
CPT/HCPCS: 71250

== ENCOUNTER 2024-01-02 13:55 | Outpatient (AMB) | payer OTHER, SELFPAY ==
[2024-01-02 14:03] VITALS: BP 118/62; PULSE 88; TEMP 36.2; O2SAT 100; BMI 38.0
--- NOTE | 2024-01-02 14:03 | MHC.OFFVIS ---
Intake Vital Signs 01/02/24 14:03 Height 5 ft 6 in Weight 235 lb 7.259 oz BMI 38.0 BP 118/62 Blood Pressure Location Rt brachial Position Sitting Pulse 88 Pulse Source Pulse Oximeter Temp 97.2 F Temp Source Skin Pulse Oximetry (%) 100 Oxygen Delivery Method Room Air Intake Visit Reasons: SLE Intake Note: Patient last seen 10/29/23 presents today for follow up. 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 Accompanied by: Self / Same As Patient Allergies No Known Allergies Allergy (Verified 01/02/24 14:07) Medication List - Last Reconciled 01/02/24 by Seamus Fung MD acetaminophen 1,000 mg PO Q8H PRN albuterol sulfate mg inhalation Q6H PRN albuterol sulfate 90 mcg/actuation (Ventolin HFA) 2 puffs inhalation ONCE PRN alclometasone 0.05% appl topical BID PRN amitriptyline 10 mg PO BEDTIME arm brace (DAMON Elbow Brace) as directed betamethasone dipropionate 0.05% topical BID PRN budesonide-formoterol 80-4.5 mcg/actuation (Symbicort) 1 puff inhalation BID PRN cetirizine 10 mg PO DAILY ciclopirox 1% topical clobetasol 0.05% 1 appl topical BID clonazepam 1 mg PO TID PRN clonidine HCl 0 mg PO CPAP As directed cyanocobalamin (vitamin B-12) 500 mcg PO DAILY cyclobenzaprine 5 - 10 mg (1 - 2 x 5 mg) PO BEDTIME PRN diclofenac sodium 1% topical BID duloxetine 30 mg PO BID famotidine 20 mg PO BID fexofenadine 180 mg PO DAILY fluocinonide 0.05% appl topical BID PRN fluticasone propionate 220 mcg/actuation (Flovent HFA) inhalation hydrocortisone 2.5% topical hydroxychloroquine 200 mg PO BID hydroxyzine HCl 25 mg PO Q8H PRN lidocaine 5% 1 patch topical DAILY PRN loratadine 10 mg PO BID losartan 50 mg PO DAILY meclizine 25 mg PO TID PRN mirabegron ER (Myrbetriq) 50 mg PO DAILY montelukast 10 mg PO QPM omeprazole 20 mg PO DAILY ondansetron HCl 8 mg PO DAILY peg 3350-electrolytes 236-22.74-6.74 -5.86 gram (GaviLyte-G) mL PO pilocarpine HCl 5 mg PO QID pregabalin 200 mg PO BID riboflavin (vitamin B2) 400 mg PO DAILY riboflavin (vitamin B2) 100 mg PO DAILY risperidone 2 mg PO BEDTIME rizatriptan mg PO HPI HPI Comments History of Present Illness Details 48-year-old female with SLE returns for follow-up. Patient states that she use a cane when she walks as her right knee slips when walking and she feels her knee will give out on her. This has been ongoing since 2013. She had an arthroscopic procedure then. She was told that she has knee osteoarthritis. She received gel injections by Orthopedics about a year and half ago which helped for about 2 months. She has a follow-up appointment with Orthopedics in about 3 weeks. She denies any new rashes. She states that she gets diffuse pains with certain movements. She takes Flexeril nightly as needed. She has been using pilocarpine 4 years which does have dry mouth, recently she noticed that it is no longer as helpful Initial history: This is a 48-year-old female with a past medical history of SLE who presents as a new patient. Patient used to follow-up with Dr. Pineda. She was unable to get an appointment with dr. Marquez at his new practice. She states that she was diagnosed with SLE around 17 years ago when she developed a butterfly rash and diffuse joint pain. She stated that she was treated with prednisone consistently at 5 mg daily for about 8 years. She was also started on hydroxychloroquine. She has been on hydroxychloroquine since her diagnosis. She states that she took methotrexate for 2 months about 7 years ago and according to patient she lost her smell and taste afterwards. He was told that this was likely a side effect of methotrexate. It did not recover when methotrexate was discontinued. Five years ago she was on Benlysta infusions for about 8 months. She stated that was helping reduce the frequency of her flare-ups, but eventually it became ineffective. Per patient 5 years ago patient presented to the hospital with right lower extremity DVT. According to patient she was on blood thinners for some time. States that she has been wearing compression stockings for about 10 years. Patient was recently evaluated by a rn heart for respiratory bronchiolitis versus extrinsic allergic alveolitis and was started on prednisone 40 mg daily a month ago with improvement of her joint pain. [facility] Medical History Dvt femoral (deep venous thrombosis) Gout GERD (gastroesophageal reflux disease) Vertigo Asthma Migraine Anxiety and depression Fibromyalgia Neuropathy H/O Sjogren's disease Discoid lupus Lupus Surgical History Hx of hysterectomy Hx of thumb surgery Hx of knee surgery Family History Other Arthritis Lupus Social History Household Members: None Alcohol intake: former Patient Tobacco Use Status: Current everyday Tobacco user Cigarettes Per Day: 7 Current occupational status: unemployed Review of Systems [facility] [place] [facility] Reports back pain and Reports arthralgias Physical Exam Vital Signs: Last Vital Signs Temp 97.2 F 01/02/24 14:03 Pulse 88 01/02/24 14:03 BP 118/62 01/02/24 14:03 Pulse Ox 100 01/02/24 14:03 Oxygen Delivery Method Room Air 01/02/24 14:03 BMI result Body Mass Index 38.0 Const General: cooperative, healthy appearing and comfortable Nutritional Appearance: obese morbidly obese Orientation/consciousness: patient oriented x3 Limitations: ambulation with cane HEENT Other: Mildly oral mucosa Head: Yes normocephalic and Yes atraumatic Resp Effort & Inspection: normal respiratory effort and able to speak in complete sentences Auscultation: clear to auscultation bilaterally Cardio Rate: regular rate Skin Other: Hypopigmented and hyperpigmented rashes on face. 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 Upon evaluation today I do not see any signs of active SLE. Her symptoms are more mechanical and degenerative in nature in addition to fibromyalgia. Continue hydroxychloroquine 200 mg Twice daily. Labs before next visit in 3 months (2) Long-term use of hydroxychloroquine: Code(s): Z79.899 - Other meterman (current) drug therapy Plan: Patient follows up regularly with Ophthalmology (3) Respiratory bronchiolitis associated interstitial lung disease: Code(s): J84.115 - Respiratory bronchiolitis interstitial lung disease Plan: Received steroid cause bar pulmonary. Tapered off in October without recurrence of symptoms (4) Osteoarthritis of right knee: Code(s): M17.11 - Unilateral primary osteoarthritis, right knee Qualifiers: Osteoarthritis type: primary Qualified Code(s): M17.11 - Unilateral primary osteoarthritis, right knee Plan: Follow-up with orthopedic (5) Dry mouth: Code(s): R68.2 - Dry mouth, unspecified Plan: Likely a side effect of multiple medications. Patient uses pilocarpine 4 times daily. Advised patient to start using XyliMelts, Biotene mouthwash or Biotene spray. Use Biotene toothpaste. Can consider switching pilocarpine to cevimeline next visit if no improvement Plan I spent 45 minutes reviewing patient's chart, evaluating patient, ordering diagnostic workup, counseling patient and documenting in the chart Orders: Orders Anti DNA DS Antibody 3 Months M32.9 - Systemic lupus erythematosus, unspecified Complement C4 3 Months M32.9 - Systemic lupus erythematosus, unspecified Complement C3 3 Months M32.9 - Systemic lupus erythematosus, unspecified UA w Microscopic 3 Months M32.9 - Systemic lupus erythematosus, unspecified Complete Blood Count Auto Diff 3 Months M32.9 - Systemic lupus erythematosus, unspecified Comprehensive Met. Panel 3 Months M32.9 - Systemic lupus erythematosus, unspecified C Reactive Protein 3 Months M32.9 - Systemic lupus erythematosus, unspecified Erythrocyte Sedimentation Rate 3 Months M32.9 - Systemic lupus erythematosus, unspecified DNA Double Stranded-Crithidia 3 Months M32.9 - Systemic lupus erythematosus, unspecified Protein Creatinine Ratio, Ur 3 Months M32.9 - Systemic lupus erythematosus, unspecified Medications: Refilled hydroxychloroquine 200 mg PO BID 180 tabs 1RF Coding Level of Care Code Est Pt Level 5 (76742) Diagnoses Lupus M32.9 Long-term use of hydroxychloroquine Z79.899 Respiratory bronchiolitis associated interstitial lung disease J84.115 Primary osteoarthritis of right knee M17.11 Osteoarthritis type: primary Dry mouth R68.2
== END 2024-01-02 14:31 | disposition home or self-care (01) ==
PROVIDERS: PCP Student in an Organized Health Care Education/Training Program; Visit Provider Student in an Organized Health Care Education/Training Program
DX: M32.9 Systemic lupus erythematosus, unspecified (principal); J84.115 Respiratory bronchiolitis interstitial lung disease; Z79.899 Other long term (current) drug therapy; M17.11 Unilateral primary osteoarthritis, right knee; R68.2 Dry mouth, unspecified
CPT/HCPCS: 99214

== ENCOUNTER → 2024-01-02 13:55 | Outpatient (BNVA) | payer OTHER, SELFPAY | PROVIDERS: PCP Student in an Organized Health Care Education/Training Program; Visit Provider Student in an Organized Health Care Education/Training Program | DX: M32.9 Systemic lupus erythematosus, unspecified (principal); M17.11 Unilateral primary osteoarthritis, right knee; R68.2 Dry mouth, unspecified; J84.115 Respiratory bronchiolitis interstitial lung disease; Z79.899 Other long term (current) drug therapy | CPT/HCPCS: 99212 ==

== ENCOUNTER 2024-01-22 05:55 | Outpatient (REF) | payer OTHER, SELFPAY ==
--- NOTE | ~2024-01-22 | XR_ITS ---
EXAMINATION: XR KNEE, RIGHT CLINICAL INFORMATION: Pain COMPARISON: Right knee radiographs on 08/15/2022 TECHNIQUE: Three views of the right knee. FINDINGS: No fracture. Normal alignment. Mild narrowing of the medial tibiofemoral compartment with subchondral sclerosis. Small right knee effusion. No soft tissue abnormality. Limited view of the left knee demonstrates no acute abnormality. Mild joint space narrowing of the medial tibiofemoral compartment with subchondral sclerosis. XR/XR knee RT 3V IMPRESSION: -No acute osseous abnormalities of the right knee. -Small right knee effusion. -Mild medial tibiofemoral compartment arthrosis.
== END 2024-01-22 05:56 | disposition home or self-care (01) ==
LOC: HO.HOSX 05:55
PROVIDERS: Visit Provider Physician Assistant
DX: M17.11 Unilateral primary osteoarthritis, right knee (principal)
CPT/HCPCS: 20610; 73562; 99212; J1040

== ENCOUNTER 2024-01-22 13:03 | Outpatient (AMB) | payer OTHER, SELFPAY ==
--- NOTE | 2024-01-22 13:24 | A.OFFVIS_ITS ---
Intake Vital Signs 01/22/24 13:43 Height 5 ft 6 in Weight 235 lb BMI 37.9 Intake Visit Reasons: ov- right knee pain Intake Note: Marilyn is a 47 year old female who presents today for a follow up right knee OA, last gel euflexxa injection 01/21/23. Patient reports that her last gel injection gave her 2 months of relief. She states having a burning sensation under the knee cap about 3 - 4 months. Patient would like to see what she can do to relief her pain and help her with the burning sensation. Allergies No Known Allergies Allergy (Verified 01/22/24 13:45) HPI ov- right knee pain HPI Details 48-year-old female who returns to the [facility] today for a follow-up of right knee pain. She continues to have pain and experiences a burning sensation in her knee cap for about 4 months. She had her last gel injection on 01/21/23 which provided her relief for about 2 months. She would like to discuss treatment options for her pain and burning sensation. [facility] Medical History Dvt femoral (deep venous thrombosis) Gout GERD (gastroesophageal reflux disease) Vertigo Asthma Migraine Anxiety and depression Fibromyalgia Neuropathy H/O Sjogren's disease Discoid lupus Lupus Surgical History Hx of hysterectomy Hx of thumb surgery Hx of knee surgery Family History Other Arthritis Lupus Social History Household Members: None Alcohol intake: former Patient Tobacco Use Status: Current everyday Tobacco user Cigarettes Per Day: 7 Current occupational status: unemployed Review of Systems Const All systems reviewed & are unremarkable except as noted in HPI and below Physical Exam Vital Signs: BMI result Body Mass Index 37.9 Extrem Other: Right knee: Skin intact, no erythema or joint effusion. Tenderness along the medial joint line and pain with patellar grind. Full ROM with crepitus. Negative Rachell?s. No ligamentous laxity. NVI. Office Procedures Joint Injection/Drain Joint Injection/Drain Primary Site: right knee Prep: site was prepped using aseptic technique, ethochloride spray was applied and injection warnings given Injected: 80 mg of, DepoMedrol, with 8 mL of, 1% plain lidocaine and in the joint Approach Used: anterolateral Procedure: The patient tolerated the procedure well and there was some relief with the local anesthesia Coding 99815 - Glenohumeral/Tronchanteric Bursa/Intraarticular Procedure code (CPT) selection complete Results Reviewed Results Reviewed: Xrays were obtained in the office today and personally reviewed by me of the right knee show moderate PF oa Assessment & Plan Assessment & Plan (1) Osteoarthritis of right knee: Code(s): M17.11 - Unilateral primary osteoarthritis, right knee Qualifiers: Osteoarthritis type: primary Qualified Code(s): M17.11 - Unilateral p rimary osteoarthritis, right knee Plan We discussed options today which include steroid injection. They did consent to move forward with the right knee injection, which was tolerated well. I recommended rest, ice and elevation and OTC anti-inflammatories PRN for discomfort. She was also referred to pain management to discuss geniculate injections. If symptoms persist or worsens over the next 6-8 weeks, patient will contact the office, otherwise follow-up as needed. Orders: Orders XR knee standing BI Today M25.561 - Pain in right knee, M25.562 - Pain in left knee Referrals Pain Management Referral M17.11 - Unilateral primary osteoarthritis, right knee Patient Instructions: Scribed for Lee Acosta PA-C, by Fidel Beard medical practice assistant, on 01/22/2024 at 1:30 PM EST. Lee Lozada PA-C, have personally reviewed and agree with the information entered by the scribe. Coding Level of Care Code Est Pt Level 3 (55851) Diagnoses Primary osteoarthritis of right knee M17.11 Osteoarthritis type: primary CPT Codes Coding - Joint 7: 02229 - Glenohumeral/Tronchanteric Bursa/Intraarticular ([id number])
[2024-01-22 13:43] VITALS: BMI 37.9
== END 2024-01-22 14:26 | disposition home or self-care (01) ==
PROVIDERS: PCP Student in an Organized Health Care Education/Training Program; Visit Provider Physician Assistant
DX: M17.11 Unilateral primary osteoarthritis, right knee (principal)
CPT/HCPCS: 20610; 99213

== ENCOUNTER 2024-01-24 14:40 | Outpatient (AMB) | payer OTHER, SELFPAY ==
[2024-01-24 14:54] VITALS: BP 136/68; PULSE 72; RESP 16; O2SAT 99; BMI 37.7
--- NOTE | 2024-01-24 14:54 | A.OFFVIS_ITS ---
Intake Vital Signs 01/24/24 14:54 Height 5 ft 6 in Weight 233 lb 6 oz BMI 37.7 BP 136/68 Blood Pressure Location Lt brachial Position Sitting Respiration 16 Pulse 72 Pulse Source Pulse Oximeter Pulse Oximetry (%) 99 Oxygen Delivery Method Room Air Intake Visit Reasons: eval geniculate injection for PF oa Allergies No Known Allergies Allergy (Verified 01/24/24 14:55) HPI HPI Comments History of Present Illness Details Marilyn is a very pleasant 48-year-old female who presents the office today for evaluation management of her chronic right knee pain. Patient reports she has been suffering with this pain since 2002. 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 They also scraped the bone and she was told that she has arthritis. Pain worse with range of motion, walking, standing She has tried trfn-trh-redueks medications, anti-inflammatory medications, muscle relaxers, steroid injections and gel injections without improvement of her symptoms. Patient completed physical therapy last year without improvement of her symptoms. She has also tried ice, heat and bracing. In terms of muscle damage condition is described as aching, spasming, hot, burning, tingling, pins and needles. Reports the worst pain is a burning sensation behind her kneecap. Pain is constant throughout the day, worse in the evening in the night. Rated today as 8/10. Pain is negatively impacting patient's enjoyment of life, general activity, mood, normal work, recreational activities, sleep and walking. Patient also has a history of lupus, polyarthralgia, osteoarthritis of both knees. She is on long-term use of Plaquenil. Currently followed by Rheumatology at [facility] Medical History Dvt femoral (deep venous thrombosis) Gout GERD (gastroesophageal reflux disease) Vertigo Asthma Migraine Anxiety and depression Fibromyalgia Neuropathy H/O Sjogren's disease Discoid lupus Lupus Surgical History Hx of hysterectomy Hx of thumb surgery Hx of knee surgery Family History Other Arthritis Lupus Social History Household Members: None Alcohol intake: former Patient Tobacco Use Status: Current everyday Tobacco user Cigarettes Per Day: 7 Current occupational status: unemployed Review of Systems Const All systems reviewed & are unremarkable except as noted in HPI and below Physical Exam Vital Signs: Last Vital Signs Pulse 72 01/24/24 14:54 Resp 16 01/24/24 14:54 BP 136/68 01/24/24 14:54 Pulse Ox 99 01/24/24 14:54 Oxygen Delivery Method Room Air 01/24/24 14:54 BMI result Body Mass Index 37.7 General: awake, alert, oriented. Answers questions appropriately. Fully engaged in examination. Skin: warm, dry, intact HEENT: Normocephalic. Hearing intact. Cardiac: External chest normal in appearance. Respiratory: No cough, audible wheezing or stridor. Abdomen: without gross distension. MS: brace applied to right knee Limited range of motion right knee, + crepitus, tenderness along medial joint line Neurological: Oriented to person, place, time and situation. Thought process intact. Ambulates with the use of a cane Psychiatric: Appropriate mood and affect. Good judgment and insight. Results Reviewed Results Reviewed: Per ortho note dated 01/22/2024 from Lee Acosta, Xrays were obtained in the office today and personally reviewed by me of the right knee show moderate PF oa Assessment & Plan Assessment & Plan (1) Osteoarthritis of right knee: Code(s): M17.11 - Unilateral primary osteoarthritis, right knee Qualifiers: Osteoarthritis type: primary Qualified Code(s): M17.11 - Unilateral primary osteoarthritis, right knee (2) Right knee pain: Code(s): M25.561 - Pain in right knee Plan Marilyn is a very pleasant 48-year-old female who presented to the office today for evaluation management of her right knee pain. Patient has exhausted conservative therapy including PT, saci-nyk-gponaia medications, anti-inflammatory medications, steroid injections and gel injections. Discussed at length the patient's diagnosis and options for treatment including diagnostic interventional testing, steroid injections, peripheral nerve stimulation with Sprint, RFA and more permanent neuromodulation. Informational pamphlets provided. Will schedule for ultrasound-guided right diagnostic saphenous nerve block with local anesthetic. If patient reports positive results plan for right saphenous nerve sprint PNS. All questions and concerns have been answered and patient agrees with the plan. Follow up after injections and sooner if needed. Coding Level of Care Code New Pt Level 4 (17735) Diagnoses Primary osteoarthritis of right knee M17.11 Osteoarthritis type: primary Right knee pain M25.561
== END 2024-01-24 15:17 | disposition home or self-care (01) ==
PROVIDERS: PCP Student in an Organized Health Care Education/Training Program; Referring Provider Physician Assistant; Visit Provider Registered Nurse Emergency
DX: M17.11 Unilateral primary osteoarthritis, right knee (principal); M25.561 Pain in right knee
CPT/HCPCS: 99204

== ENCOUNTER → 2024-01-24 14:40 | Outpatient (BNVA) | payer OTHER, SELFPAY | PROVIDERS: PCP Student in an Organized Health Care Education/Training Program; Referring Provider Physician Assistant; Visit Provider Registered Nurse Emergency | DX: M17.11 Unilateral primary osteoarthritis, right knee (principal); M25.561 Pain in right knee; M32.9 Systemic lupus erythematosus, unspecified | CPT/HCPCS: 99202 ==

== ENCOUNTER 2024-01-28 14:57 | Outpatient (REF) | payer OTHER, SELFPAY ==
--- NOTE | ~2024-01-28 | MM_ITS ---
EXAMINATION: MM SCREENING DIGITAL BREAST TOMOSYNTHESIS, BILATERAL CLINICAL INFORMATION: Screening. Asymptomatic. COMPARISON: Mammography: This study is compared with prior exams dating back to 2019. TECHNIQUE: Digital breast tomosynthesis is performed in both the craniocaudal and mediolateral oblique views along with computer-aided detection (CAD). Synthesized 2D images are generated from the tomosynthesis. FINDINGS: There are scattered areas of fibroglandular density (ACR BI-RADS breast composition Category b). There are no significant masses, abnormal calcifications, or other abnormalities. There is a coarse benign calcification in the superficial third of the upper outer quadrant of the left breast. This is unchanged. MM/MM tomosynthesis screening BI IMPRESSION: No mammographic evidence of malignancy. ASSESSMENT: BI-RADS BI-RADS 2 - Benign Findings RECOMMENDATION: Routine annual mammography screening. 1 year F/U This examination should not preclude the clinical evaluation of a suspicious palpable abnormality. This patient's information was entered into a reminder system with a target due date for their next mammogram.
== END 2024-01-28 14:58 | disposition home or self-care (01) ==
LOC: HO.MAMMO 14:57
PROVIDERS: PCP Student in an Organized Health Care Education/Training Program; Visit Provider Student in an Organized Health Care Education/Training Program
DX: Z12.31 Encounter for screening mammogram for malignant neoplasm of breast (principal)
CPT/HCPCS: 77063; 77067

== ENCOUNTER → 2024-01-28 15:45 | Outpatient (BNV) | payer OTHER, SELFPAY | PROVIDERS: PCP Student in an Organized Health Care Education/Training Program; Visit Provider Radiology Diagnostic Radiology | DX: Z12.31 Encounter for screening mammogram for malignant neoplasm of breast (principal) | CPT/HCPCS: 77063; 77067 ==

== ENCOUNTER 2024-02-14 09:23 | Outpatient (AMB) | payer OTHER, SELFPAY ==
--- NOTE | 2024-02-14 09:39 | A.OFFVIS_ITS ---
Intake Vital Signs 02/14/24 09:41 Height 5 ft 6 in Weight 233 lb BMI 37.6 BP 117/77 Blood Pressure Location Rt brachial Position Sitting Respiration 14 Pulse 77 Pulse Source Pulse Oximeter Pulse Oximetry (%) 99 Oxygen Delivery Method Room Air Intake Visit Reasons: Right Dx SNB Allergies No Known Allergies Allergy (Verified 02/14/24 09:42) Medication List - Last Reconciled 02/14/24 by Laurie Hale LPN acetaminophen 1,000 mg PO Q8H PRN albuterol sulfate mg inhalation Q6H PRN albuterol sulfate 90 mcg/actuation (Ventolin HFA) 2 puffs inhalation ONCE PRN alclometasone 0.05% appl topical BID PRN amitriptyline 10 mg PO BEDTIME arm brace (DAMON Elbow Brace) as directed betamethasone dipropionate 0.05% topical BID PRN budesonide-formoterol 80-4.5 mcg/actuation (Symbicort) 1 puff inhalation BID PRN cetirizine 10 mg PO DAILY ciclopirox 1% topical clobetasol 0.05% 1 appl topical BID clonazepam 1 mg PO TID PRN clonidine HCl 0 mg PO CPAP As directed cyanocobalamin (vitamin B-12) 500 mcg PO DAILY cyclobenzaprine 5 - 10 mg (1 - 2 x 5 mg) PO BEDTIME PRN diclofenac sodium 1% topical BID duloxetine 30 mg PO BID famotidine 20 mg PO BID fexofenadine 180 mg PO DAILY fluocinonide 0.05% appl topical BID PRN fluticasone propionate 220 mcg/actuation (Flovent HFA) inhalation hydrocortisone 2.5% topical hydroxychloroquine 200 mg PO BID hydroxyzine HCl 25 mg PO Q8H PRN lidocaine 5% 1 patch topical DAILY PRN loratadine 10 mg PO BID losartan 50 mg PO DAILY meclizine 25 mg PO TID PRN mirabegron ER (Myrbetriq) 50 mg PO DAILY montelukast 10 mg PO QPM omeprazole 20 mg PO DAILY ondansetron HCl 8 mg PO DAILY peg 3350-electrolytes 236-22.74-6.74 -5.86 gram (GaviLyte-G) mL PO pilocarpine HCl 5 mg PO QID pregabalin 200 mg PO BID riboflavin (vitamin B2) 400 mg PO DAILY riboflavin (vitamin B2) 100 mg PO DAILY risperidone 2 mg PO BEDTIME rizatriptan mg PO HPI Right Dx SNB HPI Details 49-year-old female who presents today to the office for a right diagnostic SNB. Denies any recent cough, cold, infection, fever or other significant changes in medical history since last office visit. [facility] Medical History Dvt femoral (deep venous thrombosis) Gout GERD (gastroesophageal reflux disease) Vertigo Asthma Migraine Anxiety and depression Fibromyalgia Neuropathy H/O Sjogren's disease Discoid lupus Lupus Surgical History Hx of hysterectomy Hx of thumb surgery Hx of knee surgery Family History Other Arthritis Lupus Social History Household Members: None Alcohol intake: former Patient Tobacco Use Status: Current everyday Tobacco user Cigarettes Per Day: 7 Current occupational status: unemployed Review of Systems Const All systems reviewed & are unremarkable except as noted in HPI and below Physical Exam Vital Signs: Last Vital Signs Pulse 77 02/14/24 09:41 Resp 14 02/14/24 09:41 BP 117/77 02/14/24 09:41 Pulse Ox 99 02/14/24 09:41 Oxygen Delivery Method Room Air 02/14/24 09:41 BMI result Body Mass Index 37.6 General: Appears afebrile. Alert and oriented. Mood and affect appropriate. Follows and participates in conversation appropriately. Respiratory effort is unlabored. Able to transition from sit to stand unassisted. Ambulates with bilaterally normal heel strike and toe off. Office Procedures Nerve Block Details: Right adductor canal saphenous nerve block, ultrasound guided After obtaining written consent, pre-procedure blood pressure and heart rate were stable and recorded in the nursing record. The patient was placed supine on the table. The medial thigh area overlying the adductor canal was widely prepped with chloraprep, allowed to dry and sterilely draped. Using ultrasound, the appropriate landmarks including the femoral artery and saphenous nerve were identified. The skin overlying the target was anesthetized with 1% lidocaine. A 21 gauge 100 mm echostim needle was advanced under sonographic guidance to the adductor canal. Aspiration was negative for heme and synovial fluid. 10 cc of ropivacaine 0.25% was injected around the saphenous nerve. The needles were removed, skin cleansed and a sterile bandage was applied. The patient tolerated the procedure well and no complications were en countered. Following the procedure the patient's vital signs and knee strength were stable. The patient was discharged home in good condition with post- procedural instructions. Time Out: Immediately prior to the procedure, the following was verbally confirmed that there is a signed consent form and that the correct patient, planned procedure, site and side are consistent with documentation and that necessary equipment and/or blood products are available prior to the start of the case. Complications: none EBL: <1 cc An ultrasound image of the injection was taken and stored in the permanent r ecord. 25335 - Femoral (adductor injection) (Right, Ultrasound guided. ) Procedure code (CPT) selection complete Results Reviewed Results Reviewed: No imaging is available for review. Assessment & Plan Assessment & Plan (1) Right knee pain: Code(s): M25.561 - Pain in right knee Plan Patient is status post right adductor canal saphenous nerve block, ultrasound guided. Patient tolerated procedure well and was discharged home in stable condition with discharge instructions. All questions were answered. We will follow-up in two weeks via telephone or in clinic to assess response to therapy. A follow-up appointment was made during today's visit. Scribed for Dr. Guevara by Jermaine Condon, director medical economics, on 02/14/2024. I, Dr. Guevara, have personally reviewed and agree with the information entered by the scribe. Coding Level of Care Code Procedure Only Diagnoses Right knee pain M25.561 CPT Codes Nerve Block - Nerve Block 7: 21944 - Femoral (adductor injection) ([id number])
[2024-02-14 09:41] VITALS: BP 117/77; PULSE 77; RESP 14; O2SAT 99; BMI 37.6
== END 2024-02-14 10:11 | disposition home or self-care (01) ==
PROVIDERS: PCP Student in an Organized Health Care Education/Training Program; Visit Provider Internal Medicine
DX: M25.561 Pain in right knee (principal)
CPT/HCPCS: 64447; 76942

== ENCOUNTER → 2024-02-14 09:23 | Outpatient (BNVA) | payer OTHER, SELFPAY | PROVIDERS: PCP Student in an Organized Health Care Education/Training Program; Visit Provider Internal Medicine | DX: M25.561 Pain in right knee (principal) | CPT/HCPCS: 64447; J2795 ==

== ENCOUNTER 2024-02-20 08:44 | Outpatient (AMB) | payer OTHER, SELFPAY ==
[2024-02-20 08:55] VITALS: BP 153/70; PULSE 82; RESP 18; O2SAT 96; BMI 36.7
--- NOTE | 2024-02-20 08:55 | A.OFFVIS_ITS ---
Intake Vital Signs 02/20/24 08:55 Height 5 ft 6 in Weight 227 lb 6 oz BMI 36.7 BP 153/70 H Blood Pressure Location Lt brachial Position Sitting Respiration 18 Pulse 82 Pulse Source Pulse Oximeter Pulse Oximetry (%) 96 Oxygen Delivery Method Room Air Intake Visit Reasons: s/p right SNB Allergies No Known Allergies Allergy (Verified 02/20/24 08:54) HPI HPI Comments History of Present Illness Details Patient presents the office today 6 days status post right diagnostic saphenous nerve block She reports 70% pain relief with improvement in functional mobility for 2 days after the procedure. She does endorse continued feeling of jbfs-nv-cgez rubbing. She denies any untoward effects of the procedure. Prior: Marilyn is a very pleasant 48-year-old female who presents the office today for evaluation management of her chronic right knee pain. Patient reports she has been suffering with this pain since 2002. 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 They also scraped the bone and she was told that she has arthritis. Pain worse with range of motion, walking, standing She has tried nbls-pzz-uyrafxw medications, anti-inflammatory medications, muscle relaxers, steroid injections and gel injections without improvement of her symptoms. Patient completed physical therapy last year without improvement of her symptoms. She has also tried ice, heat and bracing. In terms of muscle damage condition is described as aching, spasming, hot, burning, tingling, pins and needles. Reports the worst pain is a burning sensation behind her kneecap. Pain is constant throughout the day, worse in the evening in the night. Rated today as 8/10. Pain is negatively impacting patient's enjoyment of life, general activity, mood, normal work, recreational activities, sleep and walking. Patient also has a history of lupus, polyarthralgia, osteoarthritis of both knees. She is on long-term use of Plaquenil. Currently followed by Rheumatology at [facility]. [facility] Medical History Dvt femoral (deep venous thrombosis) Gout GERD (gastroesophageal reflux disease) Vertigo Asthma Migraine Anxiety and depression Fibromyalgia Neuropathy H/O Sjogren's disease Discoid lupus Lupus Surgical History Hx of hysterectomy Hx of thumb surgery Hx of knee surgery Family History Other Arthritis Lupus Social History Household Members: None Alcohol intake: former Patient Tobacco Use Status: Current everyday Tobacco user Cigarettes Per Day: 7 Current occupational status: unemployed Review of Systems Const All systems reviewed & are unremarkable except as noted in HPI and below Physical Exam Vital Signs: Last Vital Signs Pulse 82 02/20/24 08:55 Resp 18 02/20/24 08:55 BP 153/70 H 02/20/24 08:55 Pulse Ox 96 02/20/24 08:55 Oxygen Delivery Method Room Air 02/20/24 08:55 BMI result Body Mass Index 36.7 General: awake, alert, oriented. Answers questions appropriately. Fully engaged in examination. Skin: warm, dry, intact HEENT: Normocephalic. Hearing intact. Cardiac: External chest normal in appearance. Respiratory: No cough, audible wheezing or stridor. Abdomen: without gross distension. MS: Limited range of motion right knee, + crepitus, tenderness along medial joint line Neurological: Oriented to person, place, time and situation. Thought process intact. Ambulates with the use of a cane Psychiatric: Appropriate mood and affect. Good judgment and insight. Results Reviewed Results Reviewed: Per ortho note dated 01/22/2024 from Lee Acosta, Xrays were obtained in the office today and personally reviewed by me of the right knee show moderate PF oa Assessment & Plan Assessment & Plan (1) Osteoarthritis of right knee: Code(s): M17.11 - Unilateral primary osteoarthritis, right knee Qualifiers: Osteoarthritis type: primary Qualified Code(s): M17.11 - Unilateral primary osteoarthritis, right knee (2) Right knee pain: Code(s): M25.561 - Pain in right knee Plan Marilyn is a very pleasant 48-year-old female who presented to the office today for follow-up 6 days status post right saphenous nerve block She reports 70% pain relief with improvement in functional mobility for 2 days after the procedure. She would like to proceed with right saphenous nerve sprint PNS. Patient is also requesting repeat gel injections to the knee that were beneficial in improving the ?ehxp-gl-nypc? sensation Patient has exhausted conservative therapy including PT, hpsx-psf-glvjoqp medications, anti-inflammatory medications, steroid injections and gel injections. Discussed at length the patient's diagnosis and options for treatment including diagnostic interventional testing, steroid injections, peripheral nerve stimulation with Sprint, RFA and more permanent neuromodulation. Informational pamphlets provided. Will schedule for ultrasound-guided right diagnostic saphenous nerve sprint PNS with local anesthetic. Will further discuss gel injections at patient's next follow-up visit All questions and concerns have been answered and patient agrees with the plan. Follow up after procedure, sooner if needed. Coding Level of Care Code Est Pt Level 3 (53476) Diagnoses Primary osteoarthritis of right knee M17.11 Osteoarthritis type: primary Right knee pain M25.561
== END 2024-02-20 09:06 | disposition home or self-care (01) ==
PROVIDERS: PCP Student in an Organized Health Care Education/Training Program; Visit Provider Registered Nurse Emergency
DX: M17.11 Unilateral primary osteoarthritis, right knee (principal); M25.561 Pain in right knee
CPT/HCPCS: 99213

== ENCOUNTER → 2024-02-20 08:44 | Outpatient (BNVA) | payer OTHER, SELFPAY | PROVIDERS: PCP Student in an Organized Health Care Education/Training Program; Visit Provider Registered Nurse Emergency | DX: M25.561 Pain in right knee (principal); M17.11 Unilateral primary osteoarthritis, right knee; M79.7 Fibromyalgia | CPT/HCPCS: 99212 ==

== ENCOUNTER 2024-03-18 15:35 | Outpatient (REF) | payer OTHER, SELFPAY ==
--- NOTE | ~2024-03-18 | XR_ITS ---
EXAMINATION: XR KNEE AP STANDING CLINICAL INFORMATION: Pain in the right knee COMPARISON: X-rays of the knees January 2024 TECHNIQUE: AP bilateral standing view of the knees was obtained. FINDINGS: Right knee: Joint spaces and bone normal. Surrounding soft tissues normal. Left knee: Joint spaces and bone normal. Soft tissues normal. XR/XR knee standing BI IMPRESSION: RIGHT KNEE: Normal. LEFT KNEE: Normal.
[2024-03-18 15:49] LABS: MANUAL DIFF FLAG NO
[2024-03-18 16:18] LABS: Basophils Percent Auto 0.6 % (0-2); Eosinophils Absolute Auto 0.3 X10*3/uL (0.0-0.4); Eosinophils Percent Auto 4.7 % (0-4); Hematocrit 37.3 % (37.0-47.0); Hemoglobin 12.5 g/dl (12.0-16.0); Imm Gran Abs Auto 0.03 X10*3/uL (0.00-0.03); Imm Gran Pct Auto 0.5 % (0.0-0.4); Lymphocytes Absolute Auto 1.6 X10*3/uL (1.2-4.9); Lymphocytes Percent Auto 25.5 % (20-40); Mean Corpuscular HGB Conc 33.5 g/dl (31.0-35.0); Mean Corpuscular Hemoglobin 30.2 pg (27.0-33.0); Mean Corpuscular Volume 90.1 fL (80.0-98.0); Mean Platelet Volume 12.3 fL (9.4-12.3); Monocytes Absolute Auto 0.3 X10*3/uL (0.1-1.2); Monocytes Percent Auto 4.7 % (2-11); Neutrophils Absolute Auto 4.1 x10*3/uL (2.0-8.3); Platelet Count 248 X10*3/uL (160-400); Red Blood Count 4.14 X10*6/uL (4.20-5.50); Red Cell Distribution Width 12.8 % (11.0-16.0); White Blood Count 6.4 X10*3/uL (4.8-10.8)
[2024-03-18 17:24] LABS: Erythrocyte Sedimentation Rate 33 MM/HR (0-20)
[2024-03-18 17:37] LABS: Alanine Aminotransferase 89 U/L (0-31); Albumin Level 4.1 g/dL (3.5-5.0); Alkaline Phosphatase 57 U/L (39-117); Anion Gap 13 (12-20); Aspartate Amino Transferase 63 U/L (5-31); Bilirubin Total 0.2 mg/dL (0.0-1.0); Blood Urea Nitrogen 9 mg/dL (9-16); C Reactive Protein 1.99 mg/dL (< or = 0.50); Calcium 9.3 mg/dL (8.4-10.2); Carbon Dioxide 26 mmol/L (22-29); Chloride 101 mmol/L (96-108); Estimated Glomerular Filt Rate > 60; Glucose Random 94 mg/dL (60-115); Potassium 3.5 mmol/L (3.3-5.1); Sodium 136 mmol/L (135-145); Total Protein 8.1 g/dL (6.5-8.0)
[2024-03-18 17:52] LABS: Appearance Urine Clear; Color Urine Yellow; Glucose Urine UA Negative (Negative); Leukocyte Esterase Urine Negative (Negative); Nitrite Urine Negative (Negative); Specific Gravity - Urine 1.025 (1.005-1.025); Urine Blood Negative (Negative); Urine Ketones Trace mg/dL (Negative); Urine Protein Negative (Neg-Trace)
[2024-03-18 18:21] LABS: Bacteria Urine None Seen (None Seen); Hyaline Casts Urine 0-2 /LPF (0-2); WBC Urine 0-5 /HPF (0-5)
[2024-03-18 18:23] LABS: RBC Urine 0-2 /HPF (0-2)
[2024-03-18 18:24] LABS: Creatinine Urine 215.57 mg/dL; Protein/Creatinine Ratio, Ur 0.06 (<0.2); Total Protein Urine Random 13 mg/dL (<12)
[2024-03-19 22:53] LABS: Anti DNA DS Antibody 3 IU/mL
[2024-03-20 06:59] LABS: Complement C3 114 mg/dL (83-193)
[2024-03-23 14:13] LABS: DNAds, Crithidia Antibody Negative (Negative)
== END 2024-03-18 15:36 | disposition home or self-care (01) ==
LOC: HO.XRAY 15:35
PROVIDERS: Absent Provider Physician Assistant; PCP Student in an Organized Health Care Education/Training Program; Visit Provider Student in an Organized Health Care Education/Training Program
DX: M32.9 Systemic lupus erythematosus, unspecified (principal); M25.561 Pain in right knee; M25.562 Pain in left knee
CPT/HCPCS: 36415; 73565; 80053; 81001; 82570; 84156; 85025; 85652; 86140; 86160; 86225; 86255

== ENCOUNTER 2024-03-24 13:50 | Outpatient (AMB) | payer OTHER, SELFPAY ==
--- NOTE | 2024-03-24 14:22 | A.OFFVIS_ITS ---
Vital Signs 03/24/24 14:33 Height 5 ft 6 in Weight 225 lb 1.471 oz BMI 36.3 BP 142/64 H Blood Pressure Location Rt brachial Position Sitting Pulse 88 Pulse Source Pulse Oximeter Pulse Oximetry (%) 99 Oxygen Delivery Method Room Air Intake Visit Reasons: SLE/CM Intake Note: Patient last seen 01/02/24 presents today for follow up and test results. Patient reports falling in January, unsure how it happened. Reports starting PT ordered by PCP for back pain and shoulder. Patient has been having episodes where her knee gives out, happened in the office today while trying to step on the scale. Technical Maintenance Specialist Required: No Accompanied by: Significant Other Allergies No Known Allergies Allergy (Verified 03/24/24 14:23) Medication List - Last Reconciled 03/24/24 by Seamus Fung MD acetaminophen 1,000 mg PO Q8H PRN albuterol sulfate mg inhalation Q6H PRN albuterol sulfate 90 mcg/actuation (Ventolin HFA) 2 puffs inhalation ONCE PRN alclometasone 0.05% appl topical BID PRN amitriptyline 10 mg PO BEDTIME amoxicillin-pot clavulanate 875-125 mg 1 tab PO BID arm brace (DAMON Elbow Brace) as directed betamethasone dipropionate 0.05% topical BID PRN budesonide-formoterol 80-4.5 mcg/actuation (Symbicort) 1 puff inhalation BID PRN cetirizine 10 mg PO DAILY ciclopirox 1% topical clobetasol 0.05% 1 appl topical BID clonazepam 1 mg PO TID PRN clonidine HCl 0 mg PO CPAP As directed cyanocobalamin (vitamin B-12) 500 mcg PO DAILY cyclobenzaprine 5 - 10 mg (1 - 2 x 5 mg) PO BEDTIME PRN diclofenac sodium 1% topical BID duloxetine 30 mg PO BID duloxetine 60 mg PO DAILY famotidine 20 mg PO BID fexofenadine 180 mg PO DAILY fluocinonide 0.05% appl topical BID PRN fluticasone propionate 220 mcg/actuation (Flovent HFA) inhalation fremanezumab-vfrm (Ajovy) mg subcut hydrochlorothiazide 25 mg PO DAILY hydrocortisone 2.5% topical hydroxychloroquine 200 mg PO BID hydroxyzine HCl 25 mg PO Q8H PRN lidocaine 5% 1 patch topical DAILY PRN loratadine 10 mg PO BID losartan 50 mg PO DAILY meclizine 25 mg PO TID PRN mirabegron ER (Myrbetriq) 50 mg PO DAILY montelukast 10 mg PO QPM neomycin-polymyxin B-dexameth 3.5mg/mL-10,000 unit/mL-0.1 % drps ophthalmic (eye ) omeprazole 20 mg PO DAILY ondansetron HCl 8 mg PO DAILY peg 3350-electrolytes 236-22.74-6.74 -5.86 gram (GaviLyte-G) mL PO pilocarpine HCl 5 mg PO QID pregabalin 200 mg PO BID riboflavin (vitamin B2) 400 mg PO DAILY riboflavin (vitamin B2) 100 mg PO DAILY risperidone 2 mg PO BEDTIME rizatriptan mg PO HPI Comments Details: 49-year-old female with SLE returns for follow-up. she states that she has been having dental problems recently. She was evaluated by a dentist and received multiple courses of antibiotics. Believes her lupus is doing well overall. She has not had any rashes. Her main complaint today is her knee. Patient states that she use a cane when she walks as her right knee slips when walking and she feels her knee will give out on her. she recently fell at home in the kitchen. This has been ongoing since 2013. She had an arthroscopic procedure then. She was told that she has knee osteoarthritis. She received gel injections by Orthopedics about a year and half ago which helped for about 2 months. Initial history: This is a 48-year-old female with a past medical history of SLE who presents as a new patient. Patient used to follow-up with Dr. Pineda. She was unable to get an appointment with dr. Marquez at his new practice. She states that she was diagnosed with SLE around 17 years ago when she developed a butterfly rash and diffuse joint pain. She stated that she was treated with prednisone consistently at 5 mg daily for about 8 years. She was also started on hydroxychloroquine. She has been on hydroxychloroquine since her diagnosis. She states that she took methotrexate for 2 months about 7 years ago and according to patient she lost her smell and taste afterwards. He was told that this was likely a side effect of methotrexate. It did not recover when methotrexate was discontinued. Five years ago she was on Benlysta infusions for about 8 months. She stated that was helping reduce the frequency of her flare-ups, but eventually it became ineffective. Per patient 5 years ago patient presented to the hospital with right lower extremity DVT. According to patient she was on blood thinners for some time. States that she has been wearing compression stockings for about 10 years. Patient was recently evaluated by a cement loader for respiratory bronchiolitis versus extrinsic allergic alveolitis and was started on prednisone 40 mg daily a month ago with improvement of her joint pain. [facility] Medical History Dvt femoral (deep venous thrombosis) Gout GERD (gastroesophageal reflux disease) Vertigo Asthma Migraine Anxiety and depression Fibromyalgia Neuropathy H/O Sjogren's disease Discoid lupus Lupus Surgical History Hx of hysterectomy Hx of thumb surgery Hx of knee surgery Family History Other Arthritis Lupus Social History Household Members: None Alcohol intake: former Patient Tobacco Use Status: Current everyday Tobacco user Cigarettes Per Day: 7 Current occupational status: unemployed Female Reproductive History Menstrual Total pregnancies: 4 Number of Living Children: 4 Review of Systems ENT Reports dental pain Musc Reports back pain and Reports arthralgias Physical Exam Vital Signs: Last Vital Signs Pulse 88 03/24/24 14:33 BP 142/64 H 03/24/24 14:33 Pulse Ox 99 03/24/24 14:33 Oxygen Delivery Method Room Air 03/24/24 14:33 BMI result Body Mass Index 36.3 Const General: cooperative, healthy appearing and comfortable Nutritional Appearance: obese morbidly obese Orientation/consciousness: patient oriented x3 Limitations: ambulation with cane HEENT Head: Yes normocephalic and Yes atraumatic Resp Effort & Inspection: normal respiratory effort and able to speak in complete sentences Auscultation: clear to auscultation bilaterally Cardio Rate: regular rate Skin Other: Hypopigmented and hyperpigmented rashes on face. No active rashes Neuro General: patient oriented x3 Extrem Other: No active synovitis few fibromyalgia tender points right knee pain with any range of motion. could Not do a proper Mason's test Assessment & Plan Assessment & Plan (1) Lupus: Comment: dx around 2006 (arthralgias, rashes, +++SSa +++Cm +++PRIMARY SPECIAL EDUCATOR) H CQ throughout Methotrexate could not be tolerated Benlysta lost effectiveness after 8 months Code(s): M32.9 - Systemic lupus erythematosus, unspecified Category: Medical Plan: This is a 49-year-old female with SLE who presents for follow-up. Upon evaluation today I do not see any signs of active SLE. Her symptoms are more mechanical and degenerative in nature in addition to fibromyalgia. Continue hydroxychloroquine 200 mg Twice daily. Labs before next visit in 4 months (2) Long-term use of hydroxychloroquine: Code(s): Z79.899 - Other terminal clerk (current) drug therapy Category: Medical Plan: Patient follows up regularly with Ophthalmology (3) Respiratory bronchiolitis associated interstitial lung disease: Code(s): J84.115 - Respiratory bronchiolitis interstitial lung disease Category: Medical Plan: Received steroid cause bar pulmonary. Tapered off in October/2023 without recurrence of symptoms (4) Internal derangement of right knee: Code(s): M23.91 - Unspecified internal derangement of right knee Category: Medical Plan: patient has symptoms right knee catching, locking, giving out on her, she recently fell at home. Will Order right MRI to rule internal derangement such as a meniscal tear. Plan I spent 45 minutes reviewing patient's chart, evaluating patient, ordering diagnostic workup, counseling patient and documenting in the chart Orders: Orders MR knee RT wo con Today M23.91 - Unspecified internal derangement of right knee Complement C3 4 Months M32.9 - Systemic lupus erythematosus, unspecified Complement C4 4 Months M32.9 - Systemic lupus erythematosus, unspecified Erythrocyte Sedimentation Rate 4 Months M32.9 - Systemic lupus erythematosus, unspecified UA w Microscopic 4 Months M32.9 - Systemic lupus erythematosus, unspecified Complete Blood Count Auto Diff 4 Months M32.9 - Systemic lupus erythematosus, unspecified Comprehensive Met. Panel 4 Months M32.9 - Systemic lupus erythematosus, unspecified Anti DNA DS Antibody 4 Months M32.9 - Systemic lupus erythematosus, unspecified C Reactive Protein 4 Months M32.9 - Systemic lupus erythematosus, unspecified Protein Creatinine Ratio, Ur 4 Months M32.9 - Systemic lupus erythematosus, unspecified Coding Level of Care Code Est Pt Level 4 (27503) Diagnoses Lupus M32.9 Long-term use of hydroxychloroquine Z79.899 Respiratory bronchiolitis associated interstitial lung disease J84.115 Internal derangement of right knee M23.91
[2024-03-24 14:33] VITALS: BP 142/64; PULSE 88; O2SAT 99; BMI 36.3
== END 2024-03-24 15:15 | disposition home or self-care (01) ==
PROVIDERS: PCP Student in an Organized Health Care Education/Training Program; Visit Provider Student in an Organized Health Care Education/Training Program
DX: M32.9 Systemic lupus erythematosus, unspecified (principal); Z79.899 Other long term (current) drug therapy; J84.115 Respiratory bronchiolitis interstitial lung disease; M23.91 Unspecified internal derangement of right knee
CPT/HCPCS: 99214

== ENCOUNTER → 2024-03-24 13:50 | Outpatient (BNVA) | payer OTHER, SELFPAY | PROVIDERS: PCP Student in an Organized Health Care Education/Training Program; Visit Provider Student in an Organized Health Care Education/Training Program | DX: M32.9 Systemic lupus erythematosus, unspecified (principal); M23.91 Unspecified internal derangement of right knee; J84.115 Respiratory bronchiolitis interstitial lung disease; Z79.899 Other long term (current) drug therapy | CPT/HCPCS: 99212 ==

== ENCOUNTER 2024-04-09 06:15 | Outpatient (REF) | payer OTHER, SELFPAY | END 2024-04-09 06:16 | disposition home or self-care (01) | LOC: CF 06:15 | PROVIDERS: Visit Provider Internal Medicine | DX: M25.561 Pain in right knee (principal) | CPT/HCPCS: 64555; C1778 ==

== ENCOUNTER 2024-04-09 13:00 | Outpatient (AMB) | payer OTHER, SELFPAY ==
--- NOTE | 2024-04-09 13:01 | A.OFFVIS_ITS ---
Vital Signs 04/09/24 14:51 04/09/24 14:52 Height 5 ft 6 in Weight 255 lb BMI 41.2 BP 132/72 128/70 Blood Pressure Location Lt brachial Lt brachial Position Sitting Sitting Respiration 14 16 Pulse 78 72 Pulse Source Pulse Oximeter Pulse Oximeter Pulse Oximetry (%) 98 96 Oxygen Delivery Method Room Air Room Air Comment Pre-Op Intake Visit Reasons: Right SN Sprint Allergies No Known Allergies Allergy (Verified 03/24/24 14:23) HPI HPI Right SN Sprint: Details: Patient presents for scheduled procedure. Denies any recent cough, cold, infection, fever or other significant changes in medical history since last office visit. PFSH Medical History Dvt femoral (deep venous thrombosis) Gout GERD (gastroesophageal reflux disease) Vertigo Asthma Migraine Anxiety and depression Fibromyalgia Neuropathy H/O Sjogren's disease Discoid lupus Lupus Surgical History Hx of hysterectomy Hx of thumb surgery Hx of knee surgery Family History Other Arthritis Lupus Social History Household Members: None Alcohol intake: former Patient Tobacco Use Status: Current everyday Tobacco user Cigarettes Per Day: 7 Current occupational status: unemployed Office Procedures Details: Peripheral Nerve Stimulation Temporary Lead Placement, Ultrasound-Guided, Saphenous Nerve, right ? After the risks, benefits and alternatives were discussed with the patient and informed consentwas obtained, patient was placed in the supine position and padded to foster comfort. Appropriate skin and bony landmarks were identified, and pertinent vascular structures were located. The skin overlying the needle entry site was prepped and draped in sterile fashion. Ultrasound was used to identify the femoral artery, the femoral vein and the saphenous nerve. After identifying and marking the intended target along the course of the saphenous nerve, the skin around the planned entry point and the subcutaneous tissues were injected with local anesthetic. An introducer needle and stimulating probe were assembled, inserted and advanced along the intended course of the saphenous nerve, taking care to maintain the proper depth of insertion as the introducer was advanced under ultrasound guidance. The introducer needle was delivered to a location in proximity to the nerve taking care not to puncture the femoral artery or the vein. Multiple stimulation parameters were used to deliver stimulation to the saphenous nerve in concert with stimulating at multiple positions around the nerve. Nerve target acquisition was confirmed noting generation of sensory and mild motor effects (paresthesia, muscle tension, etc) in the medial knee, leg and ankle; corresponding to the distribution of the saphenous nerve. Various electrical parameter combinations were tested, and the lead location was adjusted (physically relocated under ultrasound guidance) until the patient indicated medial knee paresthesia and tension overlapping the distribution of the patient?s typical region of pain. The stimulating probe was removed from the introducer and a percutaneous lead was guided through the needle and delivered to a location in similar proximity to the nerve. Final location was verified with electrical stimulation and documented. The introducer needle was removed, and the exposed end of the percutaneous lead was attached to an external stimulator unit. Various electrical parameter combinations were again tested until the patient indicated paresthesia and muscle tension overlapping the distribution of the patient?s typical region of pain. After confirming that lead impedance was in the normal range, the external unit was detached, the needle was removed, and the lead was anchored at the skin. The lead was threaded into the connector block and electrical continuity and desired patient response was confirmed. The connector block was attached to the external stimulator unit. The site was covered with a sterile occlusive dressing. A final ultrasound image was taken to document final placement. The patient was observed for stability of vital signs and comfort. Sprint PNS Device: Sprint PNS Device [id number] Percutaneous Peripheral Neuroelectrode Procedure: 36720 - Percutaneous Peripheral Neuroelectrode Procedure code (CPT) selection complete Office Meds lidocaine (PF) 50 mg/5 mL (1 %) injection syringe Performing Provider: Danay Brooks APRN, ROD Performing Location: [facility] Administered by: Laurie Hale LPN on 04/09/24 14:08 Dose Route Admin Location Dispensed Lot Number Expiration Date ND Odd Ticket Clerk 5 mL subcut 5 mL Assessment & Plan Assessment & Plan (1) Right knee pain: Code(s): M25.561 - Pain in right knee Category: Medical Plan Patient is status post temporary right saphenous nerve stimulator placement. Patient tolerated procedure well and was discharged home in stable condition with discharge instructions. All questions were answered. We will follow-up via telephone or in clinic to assess response to therapy. A follow-up appointment was made during today's visit. Orders: Orders AMB Sprint PNS Today M23.91 - Unspecified internal derangement of right knee FL guidance in treatment room Today M23.91 - Unspecified internal derangement of right knee Coding Level of Care Code Procedure Only Diagnoses Right knee pain M25.561 CPT Codes Sprint PNS - Sprint PNS Device: Sprint PNS Device ([id number]) Sprint PNS - SPRINT: 79479 - Percutaneous Peripheral Neuroelectrode ([id number]) Implantable Device Implantable Device Implantable Devices Qty Odd Ticket Clerk Implant Date Expiration Date Analgesic PENS system 1 [employer] 04/09/24 07/29/25
[2024-04-09 14:51] VITALS: BP 132/72; PULSE 78; RESP 14; O2SAT 98; BMI 41.2
[2024-04-09 14:52] VITALS: BP 128/70; PULSE 72; RESP 16; O2SAT 96
== END 2024-04-09 14:20 | disposition home or self-care (01) ==
LOC: HO.PMCPRC 13:00
PROVIDERS: PCP Student in an Organized Health Care Education/Training Program; Visit Provider Internal Medicine
DX: M25.561 Pain in right knee (principal)
CPT/HCPCS: 64555

== ENCOUNTER 2024-04-16 13:05 | Outpatient (AMB) | payer OTHER, SELFPAY ==
--- NOTE | 2024-04-16 13:15 | A.OFFVIS_ITS ---
Vital Signs 04/16/24 13:23 Height 5 ft 6 in Weight 227 lb BMI 36.6 BP 134/86 Blood Pressure Location Lt brachial Position Sitting Pulse 67 Pulse Source Pulse Oximeter Pulse Oximetry (%) 98 Oxygen Delivery Method Room Air Intake Visit Reasons: s/p right SN Sprint Intake Note: Pain today 8/10 Accompanied by: Spouse Allergies No Known Allergies Allergy (Verified 04/16/24 13:23) HPI Comments Details: Marilyn presents back to the office today for follow-up, one-week status post right saphenous sprint peripheral nerve stimulator placement Pain today is rated as a 8/10. Patient states her pain was feeling better until 3 days ago. She then had been walking around a lot and went to her son's where she climbed a lot of stairs. She says prior to this she was only to climb maybe 3 stairs so after being at her son's the pain became worse. She has been applying ice. In contact with the [employer] insurance follow up representative. Stimulation currently set at 63 and tolerating well. Prior: Patient presents the office today 6 days status post right diagnostic saphenous nerve block She reports 70% pain relief with improvement in functional mobility for 2 days after the procedure. She does endorse continued feeling of ckfv-ay-mcnj rubbing. She denies any untoward effects of the procedure. Prior: Marilyn is a very pleasant 48-year-old female who presents the office today for evaluation management of her chronic right knee pain. Patient reports she has been suffering with this pain since 2002. 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 They also scraped the bone and she was told that she has arthritis. Pain worse with range of motion, walking, standing She has tried pvhz-tan-qhqcdky medications, anti-inflammatory medications, muscle relaxers, steroid injections and gel injections without improvement of her symptoms. Patient completed physical therapy last year without improvement of her symptoms. She has also tried ice, heat and bracing. In terms of muscle damage condition is described as aching, spasming, hot, burning, tingling, pins and needles. Reports the worst pain is a burning sensation behind her kneecap. Pain is constant throughout the day, worse in the evening in the night. Rated today as 8/10. Pain is negatively impacting patient's enjoyment of life, general activity, mood, normal work, recreational activities, sleep and walking. Patient also has a history of lupus, polyarthralgia, osteoarthritis of both knees. She is on long-term use of Plaquenil. Currently followed by [facility] Medical History Dvt femoral (deep venous thrombosis) Gout GERD (gastroesophageal reflux disease) Vertigo Asthma Migraine Anxiety and depression Fibromyalgia Neuropathy H/O Sjogren's disease Discoid lupus Lupus Surgical History Hx of hysterectomy Hx of thumb surgery Hx of knee surgery Family History Other Arthritis Lupus Social History Household Members: None Alcohol intake: former Patient Tobacco Use Status: Current everyday Tobacco user Cigarettes Per Day: 7 Current occupational status: unemployed Review of Systems Const All systems reviewed & are unremarkable except as noted in HPI and below Physical Exam Vital Signs: Last Vital Signs Pulse 67 04/16/24 13:23 BP 134/86 04/16/24 13:23 Pulse Ox 98 04/16/24 13:23 Oxygen Delivery Method Room Air 04/16/24 13:23 BMI result Body Mass Index 36.6 General: awake, alert, oriented. Answers questions appropriately. Fully engaged in examination. Skin: warm, dry, intact HEENT: Normocephalic. Hearing intact. Cardiac: External chest normal in appearance. Respiratory: No cough, audible wheezing or stridor. Abdomen: without gross distension. MS: Right knee: Sprint dressing change: Existing dressing removed, Area cleansed with chloraprep. Site dry, clean without redness, swelling, warmth, bruising or drainage. Lead secure device removed. Area cleansed again with chloraprep, once dry skin barrier protectant wipe applied. New lead secure device applied, tegaderm applied. Patient tolerated procedure well. Neurological: Oriented to person, place, time and situation. Thought process intact. Ambulates with the use of a cane Psychiatric: Appropriate mood and affect. Good judgment and insight. Results Reviewed Results Reviewed: Per ortho note dated 01/22/2024 from Ta-Nona Meuse, Xrays were obtained in the office today and personally reviewed by me of the right knee show moderate PF oa Assessment & Plan Assessment & Plan (1) Osteoarthritis of right knee: Code(s): M17.11 - Unilateral primary osteoarthritis, right knee Category: Medical Qualifiers: Osteoarthritis type: primary Qualified Code(s): M17.11 - Unilateral primary osteoarthritis, right knee (2) Right knee pain: Code(s): M25.561 - Pain in right knee Category: Medical Plan Sprint dressing change as per above. Patient tolerating sprint device well. Managing stimulation adjustment and in close contact with the [employer] insurance follow up representative. Continue with weekly dressing changes, patient would like to do this at home. She will contact our office at any time if there are questions or concerns. Synvisc-One injections were denied, insurance covers Gel One injections Patient has exhausted conservative therapy including PT, ehjx-day-xcolgqx medications, anti-inflammatory medications, steroid injections and gel injections. Will schedule for ultrasound-guided gel 1 injections to the right knee with local anesthetic. All questions and concerns have been answered and patient agrees with the plan. Follow up after procedure, sooner if needed. Coding Level of Care Code Est Pt Level 3 (52248) Diagnoses Primary osteoarthritis of right knee M17.11 Osteoarthritis type: primary Right knee pain M25.561
[2024-04-16 13:23] VITALS: BP 134/86; PULSE 67; O2SAT 98; BMI 36.6
== END 2024-04-16 13:38 | disposition home or self-care (01) ==
PROVIDERS: PCP Student in an Organized Health Care Education/Training Program; Visit Provider Registered Nurse Emergency
DX: M17.11 Unilateral primary osteoarthritis, right knee (principal); M25.561 Pain in right knee
CPT/HCPCS: 99024

== ENCOUNTER → 2024-04-16 13:05 | Outpatient (BNVA) | payer OTHER, SELFPAY | PROVIDERS: PCP Student in an Organized Health Care Education/Training Program; Visit Provider Registered Nurse Emergency | DX: M17.11 Unilateral primary osteoarthritis, right knee (principal); M25.561 Pain in right knee; M79.7 Fibromyalgia; Z96.82 Presence of neurostimulator | CPT/HCPCS: 99212 ==

== ENCOUNTER 2024-04-26 22:13 | Inpatient (IN) | payer OTHER, SELFPAY ==
--- NOTE | 2024-04-26 | ECG_ITS ---
Test Reason : CHEST PRESSURE Blood Pressure : / mmHG Vent. Rate : 078 BPM Atrial Rate : 078 BPM P-R Int : 138 ms QRS Dur : 080 ms QT Int : 390 ms P-R-T Axes : 016 005 043 degrees QTc Int : 444 ms Normal sinus rhythm Nonspecific ST elevation Abnormal ECG No previous ECGs available Referred By: Generic ED Physician Electronically Signed By:TAM VELASCO MD
--- NOTE | ~2024-04-26 | XR_ITS ---
EXAMINATION: XR CHEST CLINICAL INFORMATION: Chest pain. COMPARISON: 07/20/2015. TECHNIQUE: Frontal view of the chest was obtained. FINDINGS: No significant abnormality is noted involving the heart, lungs, mediastinum, bony thorax or soft tissues. XR/XR chest 1V IMPRESSION: No evidence for active cardiopulmonary disease.
[2024-04-26 23:20] VITALS: BP 167/94; PULSE 91; RESP 18; TEMP 36.7; O2SAT 97; BMI 37.1
--- NOTE | 2024-04-26 23:39 | MHC.EDTECH ---
Patient brought to triage area,EKG taken per order and signed by provider,labs drawn and sent to lab.
[2024-04-26 23:40] LABS: MANUAL DIFF FLAG NO
[2024-04-26 23:41] LABS: Basophils Absolute Auto 0.1 X10*3/uL (0.0-0.2); Basophils Percent Auto 0.8 % (0-2); Eosinophils Absolute Auto 0.4 X10*3/uL (0.0-0.4); Hematocrit 37.2 % (37.0-47.0); Hemoglobin 13.1 g/dl (12.0-16.0); Imm Gran Abs Auto 0.02 X10*3/uL (0.00-0.03); Imm Gran Pct Auto 0.2 % (0.0-0.4); Lymphocytes Absolute Auto 1.9 X10*3/uL (1.2-4.9); Lymphocytes Percent Auto 22.4 % (20-40); Mean Corpuscular HGB Conc 35.2 g/dl (31.0-35.0); Mean Corpuscular Hemoglobin 30.8 pg (27.0-33.0); Mean Corpuscular Volume 87.3 fL (80.0-98.0); Monocytes Absolute Auto 0.6 X10*3/uL (0.1-1.2); Monocytes Percent Auto 6.3 % (2-11); Neutrophils Absolute Auto 5.8 x10*3/uL (2.0-8.3); Neutrophils Percent Auto 66.3 % (45-73); Platelet Count 243 X10*3/uL (160-400); Red Blood Count 4.26 X10*6/uL (4.20-5.50); Red Cell Distribution Width 13.1 % (11.0-16.0); White Blood Count 8.7 X10*3/uL (4.8-10.8)
[2024-04-26 23:55] LABS: Alanine Aminotransferase 93 U/L (0-31); Albumin Level 4.4 g/dL (3.5-5.0); Alkaline Phosphatase 67 U/L (39-117); Anion Gap 16 (12-20); Aspartate Amino Transferase 57 U/L (5-31); Bilirubin Total 0.2 mg/dL (0.0-1.0); Blood Urea Nitrogen 8 mg/dL (9-16); Calcium 10.6 mg/dL (8.4-10.2); Carbon Dioxide 24 mmol/L (22-29); Chloride 102 mmol/L (96-108); Creatinine Clr Calc Pharmacy 106.1; Estimated Glomerular Filt Rate > 60; Glucose Random 98 mg/dL (60-115); Potassium 3.7 mmol/L (3.3-5.1); Sodium 138 mmol/L (135-145); Total Protein 8.9 g/dL (6.5-8.0)
--- NOTE | 2024-04-26 23:59 | ED_ITS ---
HPI - General Adult General Chief complaint: General Medical Stated complaint: hypertension Time Seen by Provider: 04/26/24 23:59 Source: patient Mode of arrival: ambulatory Limitations: no limitations History of Present Illness ED Provider: karissa SCRUGGS narrative: Patient's history of lupus, anxiety, hypertension , sleep apnea using CPAP, smoker no known coronary artery disease complaining of mid chest pain for last 48 hours prescribed pain is heaviness squeezing pain in mid chest was constant , no shortness a breath no diaphoresis no nausea no vomiting no change in pain with position also noted to have blood pressure elevated to 172/104 repeat blood pressure in the ER was 144/94 her lupus is stable no flare-up lately patient is under increased stress as her mother went for surgery last week patient does not take any aspirin Related Data Home Medications ?Medication ?Instructions ?Recorded ?Confirmed acetaminophen 500 mg tablet 1,000 mg PO Q8H PRN pain 08/15/22 03/24/24 alclometasone 0.05 % topical cream appl topical BID PRN 08/15/22 03/24/24 amitriptyline 10 mg tablet 10 mg PO BEDTIME 08/15/22 03/24/24 betamethasone dipropionate 0.05 % topical BID PRN 08/15/22 03/24/24 topical ointment budesonide-formoterol HFA 80 1 puff inhalation BID PRN wheezing 08/15/22 03/24/24 mcg-4.5 mcg/actuation aerosol inhaler (Symbicort) cetirizine 10 mg tablet 10 mg PO DAILY 08/15/22 03/24/24 clonazepam 1 mg tablet 1 mg PO TID PRN 08/15/22 03/24/24 clonidine HCl 0.1 mg tablet 0 mg PO 08/15/22 03/24/24 duloxetine 30 mg capsule,delayed 30 mg PO BID depressive disorder 08/15/22 03/24/24 release famotidine 20 mg tablet 20 mg PO BID 08/15/22 03/24/24 fexofenadine 180 mg tablet 180 mg PO DAILY 08/15/22 03/24/24 fluocinonide 0.05 % topical cream appl topical BID PRN 08/15/22 03/24/24 hydroxyzine HCl 25 mg tablet 25 mg PO Q8H PRN 08/15/22 03/24/24 loratadine 10 mg tablet 10 mg PO BID 08/15/22 03/24/24 meclizine 25 mg tablet 25 mg PO TID PRN dizziness 08/15/22 03/24/24 mirabegron 50 mg tablet,extended 50 mg PO DAILY 08/15/22 03/24/24 release 24 hr (Myrbetriq) montelukast 10 mg tablet 10 mg PO QPM 08/15/22 03/24/24 omeprazole 20 mg capsule,delayed 20 mg PO DAILY 08/15/22 03/24/24 release pilocarpine HCl 5 mg tablet 5 mg PO QID 08/15/22 03/24/24 riboflavin (vitamin B2) 400 mg 400 mg PO DAILY 08/15/22 03/24/24 tablet risperidone 2 mg tablet 2 mg PO BEDTIME 08/15/22 03/24/24 pregabalin 200 mg capsule 200 mg PO BID 12/17/22 03/24/24 albuterol sulfate 2.5 mg/3 mL mg inhalation Q6H PRN wheezing 06/27/23 03/24/24 (0.083 %) solution for nebulization albuterol sulfate 90 mcg/actuation 2 puff inhalation ONCE PRN 06/27/23 03/24/24 aerosol inhaler (Ventolin HFA) CPAP 08/28/23 03/24/24 ciclopirox 1 % shampoo topical 08/28/23 03/24/24 clobetasol 0.05 % topical ointment 1 appl topical BID 08/28/23 03/24/24 cyanocobalamin (vitamin B-12) 500 500 mcg PO DAILY 08/28/23 03/24/24 mcg tablet diclofenac sodium 1 % topical gel topical BID 08/28/23 03/24/24 fluticasone propionate 220 inhalation 08/28/23 03/24/24 mcg/actuation HFA aerosol inhaler (Flovent HFA) hydrocortisone 2.5 % topical topical 08/28/23 03/24/24 ointment lidocaine 5 % topical patch 1 patch topical DAILY PRN pain 08/28/23 03/24/24 losartan 50 mg tablet 50 mg PO DAILY 08/28/23 03/24/24 ondansetron HCl 8 mg tablet 8 mg PO DAILY 08/28/23 03/24/24 peg 3350-electrolytes 236 ml PO 08/28/23 03/24/24 gram-22.74 gram-6.74 gram-5.86 gram solution (GaviLyte-G) riboflavin (vitamin B2) 100 mg 100 mg PO DAILY 08/28/23 03/24/24 tablet rizatriptan 10 mg tablet mg PO 08/28/23 03/24/24 duloxetine 60 mg capsule,delayed 60 mg PO DAILY 02/20/24 03/24/24 release amoxicillin 875 mg-potassium 1 tab PO BID 03/24/24 03/24/24 clavulanate 125 mg tablet fremanezumab-vfrm 225 mg/1.5 mL mg subcut 03/24/24 03/24/24 subcutaneous auto-injector (Ajovy) hydrochlorothiazide 25 mg tablet 25 mg PO DAILY 03/24/24 03/24/24 esvydgdh-bxoryjaaa-ayhggxik 3.5 drp ophthalmic (eye) 03/24/24 03/24/24 mg/mL-10,000 unit/mL-0.1% eye drops sodium fluoride 1.1 %-potassium PO 04/16/24 nitrate 5 % dental paste Previous Rx's ?Medication ?Instructions ?Recorded arm brace (DAMON Elbow Brace) #1 ea 09/18/23 hydroxychloroquine 200 mg tablet 200 mg PO BID #180 tabs 01/02/24 cyclobenzaprine 5 mg tablet 5 - 10 mg (1 - 2 x 5 mg) PO 03/02/24 BEDTIME PRN for muscle spasm #30 tabs Allergies Allergy/AdvReac Type Severity Reaction Status Date / Time No Known Allergies Allergy Verified 04/26/24 23:23 Review of Systems 2 Review of Systems: Yes all other systems are reviewed and are negative PMF Past Medical History Medical History Dvt femoral (deep venous thrombosis) Gout GERD (gastroesophageal reflux disease) Vertigo Asthma Migraine Anxiety and depression Fibromyalgia Neuropathy H/O Sjogren's disease Discoid lupus Lupus Surgical History Hx of hysterectomy Hx of thumb surgery Hx of knee surgery Family History Family History Other Arthritis Lupus Social History Social History Household Members: None Alcohol intake: former Patient Tobacco Use Status: Current everyday Tobacco user Cigarettes Per Day: 7 Advance Directives: No Advance Directives Information Provided: No Current occupational status: unemployed Physical Exam ED Vital Signs: Vital Signs - 24 hr 04/26/24 23:20 04/27/24 00:40 Temperature 98.1 F Pulse Rate 91 75 Respiratory Rate 18 Blood Pressure 167/94 H 145/90 H Pulse Oximetry 97 Oxygen Delivery Method Room Air BMI result Body Mass Index 37.1 Appearance: Alert. Oriented X3. No acute distress. Eyes: No pallor or icterus ENT: Pharynx normal. Oral Mucosa moist Neck: Normal inspection. Neck supple. CVS: Normal heart rate and rhythm. Pulses normal. No murmur or rub Respiratory: No respiratory distress. Equal air entry bilateral, no wheezing/rales/rhonchi Abdomen: Soft and nontender. Bowel sounds are present, no mass palpable, no CVA tenderness Skin: Skin warm and dry. Normal skin color. Normal skin turgor. Extremities: No lower extremity edema. No calf tenderness Neuro: Oriented X 3. Medications Administered Discontinued Medications Generic Name Dose Route Start Last Admin Trade Name Freq PRN Reason Stop Dose Admin Aspirin 162 mg 04/27/24 00:14 04/27/24 00:40 Aspirin Enteric Coated 81 Mg Tablet.Dr ABRAHAM 04/27/24 00:15 162 mg ONCE ONE Administration Heparin Sodium (Porcine) 5,000 unit 04/27/24 00:57 04/27/24 01:13 Heparin Sodium,Porcine 5,000 Unit/Ml Vial IVPUSH 04/27/24 00:58 5,000 unit ONCE ONE Administration Nitroglycerin 1 inch 04/27/24 00:14 04/27/24 00:40 Nitroglycerin 2 % Oint 1 Gm Packet TRANSDERMA 04/27/24 00:15 1 inch ONCE ONE Administration Medical Decision Making Medical Decision Making MDM Narrative: Patient with 48 hours of mid chest pain with no acute ST wave elevation possible pericarditis but no relation of the pain with position no pericardial rub noticed 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 Advised heparin for now no need for transfer to [facility] no acute ST elevation during stay in the ED patient felt better blood pressure improved and pain is now comes and goes. Differential Diagnosis Differential Diagnoses: The differential diagnosis associated with the presentation includes Musculoskeletal pain/pericarditis/ACS/non-STEMI/pleurisy/anxiety Admission/Observation Consideration of admission/observation: Escalation of care including admission/observation considered Consult Healthcare Provider Management of the patient was discussed with: Hospitalist Lab Data MDM Lab Attestation statement: I reviewed the patient's lab results. 04/26/24 23:32 04/26/24 23:32 Labs: Lab Results 04/26/24 04/27/24 04/27/24 Range/Units 23:32 00:30 01:27 WBC 8.7 (4.8-10.8) X10*3/uL RBC 4.26 (4.20-5.50) X10*6/uL Hgb 13.1 (12.0-16.0) g/dl Hct 37.2 (37.0-47.0) % MCV 87.3 (80.0-98.0) fL MCH 30.8 (27.0-33.0) pg MCHC 35.2 H (31.0-35.0) g/dl RDW 13.1 (11.0-16.0) % Plt Count 243 (160-400) X10*3/uL MPV 11.0 (9.4-12.3) fL Immature Gran % (Auto) 0.2 (0.0-0.4) % Neut % (Auto) 66.3 (45-73) % Lymph % (Auto) 22.4 (20-40) % [place] % (Auto) 6.3 (2-11) % Eos % (Auto) 4.0 (0-4) % Baso % (Auto) 0.8 (0-2) % Lymph # (Auto) 1.9 (1.2-4.9) X10*3/uL [place] # (Auto) 0.6 (0.1-1.2) X10*3/uL Eos # (Auto) 0.4 (0.0-0.4) X10*3/uL Baso # (Auto) 0.1 (0.0-0.2) X10*3/uL Abs Immat Gran (auto) 0.02 (0.00-0.03) X10*3/uL Absolute Neuts (auto) 5.8 (2.0-8.3) x10*3/uL Absolute Nucleated RBC 0.000 (0.0-0.012) X10*3/uL Nucleated RBC % (auto) 0.0 (0.0-0.2) /100WBC PT 11.1 (11.1-13.3) SEC INR 0.9 (0.9-1.1) APTT 30.5 (26.0-36.8) SEC D-Dimer High Sensitivty < 150 NG/ML Sodium 138 (135-145) mmol/L Potassium 3.7 (3.3-5.1) mmol/L Chloride 102 (96-108) mmol/L Carbon Dioxide 24 (22-29) mmol/L Anion Gap 16 (12-20) BUN 8 L (9-16) mg/dL Creatinine 0.80 (0.5-1.4) mg/dL Estim Creat Clear Calc 106.1 Estimated GFR > 60 Random Glucose 98 (60-115) mg/dL Calcium 10.6 H D (8.4-10.2) mg/dL Total Bilirubin 0.2 (0.0-1.0) mg/dL AST 57 H (5-31) U/L ALT 93 H (0-31) U/L Alkaline Phosphatase 67 (39-117) U/L Troponin I High Sens 872.3 H* 1129.7 H* (<3.5-17.0) ng/L C-Reactive Protein 2.00 H (< or = 0.50) mg/dL Total Protein 8.9 H (6.5-8.0) g/dL Albumin 4.4 (3.5-5.0) g/dL Independent Interpretation I performed an independent interpretation of an: EKG Interpretation: Normal sinus rhythm heart rate 78 beats per minute J-point elevation inferolateral leads? Pericarditis with normal KS interval Radiology Impression Discussion of test interpretation with radiology: I have reviewed the radiologist's reading. External Record Review External record reviewed: Inpatient record and Office record Critical Care Time Critical Care Time Critical Care Time: Yes Total Critical Care Time: 65 Attestation: The patient was critically ill with a high probability of imminent or life threatening deterioration. I spent greater than 70???minutes of discontinuous time evaluating the patient,delivering critical care at the bedside, discussing and evaluating pertinent data with consultants. Critical care time does not include time spent performing separately billable procedures or teaching. Total time spent performing critical care was ?65??minutes. Discharge Plan Discharge Clinical Impression: Non-ST elevated myocardial infarction (non-STEMI) Patient Disposition: Admitted As Inpatient Print Language: Estonian
[2024-04-27 00:11] LABS: Troponin-I High Sensitivity 872.3 ng/L (<3.5-17.0)
[2024-04-27 00:40] VITALS: BP 145/90; PULSE 75
[2024-04-27] MEDS: Nitroglycerin 2 % Oint 1 GM Packet 1 INCH TRANSDERMA (00:40)
[2024-04-27] MEDS: Aspirin Enteric Coated 81 MG TABLET.DR 162 MG PO (00:40)
[2024-04-27 00:50] LABS: INTERNATIONAL NORM RATIO 0.9 (0.9-1.1); Prothrombin Time 11.1 SEC (11.1-13.3)
--- NOTE | 2024-04-27 00:51 | ECG_ITS ---
Test Reason : CP Blood Pressure : / mmHG Vent. Rate : 071 BPM Atrial Rate : 071 BPM P-R Int : 130 ms QRS Dur : 080 ms QT Int : 388 ms P-R-T Axes : 014 005 037 degrees QTc Int : 421 ms Normal sinus rhythm Nonspecific ST elevation Abnormal ECG When compared with ECG of 26-APR-2024 23:31, No significant change was found Referred By: Melo Corley Electronically Signed By:TAM VELASCO MD
[2024-04-27 00:52] LABS: Partial Thromboplastin Time 30.5 SEC (26.0-36.8)
[2024-04-27 01:03] LABS: D Dimer High Sensitivity < 150 NG/ML
[2024-04-27] MEDS: Heparin Sodium,Porcine 5,000 UNIT/ML VIAL 5000 UNIT IVPUSH (01:13)
[2024-04-27 01:57] LABS: Troponin-I High Sensitivity 1129.7 ng/L (<3.5-17.0)
[2024-04-27] MEDS: Heparin Sodium,Porcine/1/2NS 25,000 UNIT/250 ML IV.SOLN 10 UNIT IVCONT (02:27)
[2024-04-27 02:52] VITALS: BP 132/79; PULSE 76; RESP 20; TEMP 36.6; O2SAT 98
--- NOTE | 2024-04-27 03:36 | PM.IMHP ---
History of Present Illness Date of Service: 04/27/24 Attending physician on admission: Galdino Heredia Chief Complaint: Chest pain Marilyn Wells is a 49 years old woman with a complex medical history including lupus, essential hypertension, GERD, Sjogren's, DVT (not currently on aspirin or any anticoagulant), obesity, AIRAM on CPAP and ongoing tobacco smoking presents to the emergency department complaining of chest pain that started Thang. She described the pain as a burning sensation in the middle of her chest without radiation. The pain has been constant but with fluctuances in intensity. She took famotidine and Tums without improvement of symptoms. Chest pain does not increase with respiration. Patient denies associated shortness on breath, palpitations or dizziness. She did report some diaphoresis. Patient also mentioned that today her blood pressure was significantly high, 172/104. She denies history of coronary artery disease, GA, heart failure, strokes or type 2 diabetes mellitus (but prediabetic). As mentioned before she is a tobacco smoker -smokes 10 cigarettes daily but denied alcohol abuse or illicit drug use. In the ED, patient was found to have an initial BP of 167/94, most recent one is 132/79. The rest of vital signs are normal. Blood workup including CBC and CMP are unremarkable except for slight elevation of transaminases. Troponin is markedly elevated (872.3--> 1129.7). CXR is negative. ECG x2 show mild ST elevation in basically all leads. ED tx: Nitroglycerin ointment 1 in, aspirin 162 p.o. and heparin IV infusion Review of Systems Review of Systems: All 12 systems were reviewed and normal except as noted in HPI. [facility] Medical History Dvt femoral (deep venous thrombosis) Gout GERD (gastroesophageal reflux disease) Vertigo Asthma Migraine Anxiety and depression Fibromyalgia Neuropathy H/O Sjogren's disease Discoid lupus Lupus Family History Other Arthritis Lupus Surgical History Hx of hysterectomy Hx of thumb surgery Hx of knee surgery Social History Household Members: None Alcohol intake: former Patient Tobacco Use Status: Current everyday Tobacco user Cigarettes Per Day: 7 Current occupational status: unemployed Meds Allergies Allergy/AdvReac Type Severity Reaction Status Date / Time No Known Allergies Allergy Verified 04/26/24 23:23 Active Medications: Current Medications Acetaminophen (Acetaminophen 325 Mg Tablet) 650 mg PO Q6H PRN PRN Reason: Pain, Mild (Pain Scale 1-3), fever or headache Aspirin (Aspirin Enteric Coated 81 Mg Tablet.Dr) 81 mg PO DAILY [facility] Atorvastatin Calcium (Atorvastatin Calcium 80 Mg Tablet) 80 mg PO DAILY [facility] Calcium Carbonate (Calcium Carbonate 750 Mg Tab.Chew) 750 mg PO Q4H PRN PRN Reason: Heartburn Heparin Sodium (Porcine) (Heparin Sodium,Porcine 5,000 Unit/Ml Vial) 4,200 unit 40 unit/kg (4200 unit) IVPUSH PROTOCOL BOLUS PRN; Protocol PRN Reason: 40 unit/kg - Heparin Protocol Heparin Sodium (Porcine) (Heparin Sodium,Porcine 5,000 Unit/Ml Vial) 8,300 unit 80 unit/kg (8300 unit) IVPUSH PROTOCOL BOLUS PRN; Protocol PRN Reason: 80 unit/kg - Heparin Protocol Heparin Sodium/Sodium Chloride (Heparin Sodium,Porcine/1/2ns) 25,000 unit in 250 mls @ 0 mls/hr IVCONT .Q0M [facility]; Protocol Last Admin: 04/27/24 02:27 Dose: 9.58 units/kg/hr, 10 mls/hr Magnesium Hydroxide (Milk Of Magnesia 30 Ml Oral.Susp) 30 ml PO DAILY PRN PRN Reason: Constipation Metoprolol Succinate (Metoprolol Succinate Er 12.5 Mg Halftab.Er.24h) 12.5 mg PO DAILY [facility]; Protocol Nitroglycerin (Nitroglycerin 0.4 Mg Tab.Subl) 0.4 mg SUBLINGUAL Q5MX3 PRN PRN Reason: Chest Pain Sodium Chloride (0.9 % Sodium Chloride Flush 3 Ml Syringe) 3 ml IVFLUSH QSHIFT [facility] Home Medications ?Medication ?Instructions ?Recorded ?Confirmed ?Last Taken ?Type acetaminophen 500 mg tablet 1,000 mg PO Q8H PRN pain 08/15/22 04/27/24 Unknown History alclometasone 0.05 % topical cream appl topical BID PRN 08/15/22 03/24/24 Unknown History amitriptyline 10 mg tablet 10 mg PO BEDTIME 08/15/22 03/24/24 Unknown History betamethasone dipropionate 0.05 % topical BID PRN 08/15/22 03/24/24 Unknown History topical ointment budesonide-formoterol HFA 80 1 puff inhalation BID PRN wheezing 08/15/22 04/27/24 Unknown History mcg-4.5 mcg/actuation aerosol inhaler (Symbicort) cetirizine 10 mg tablet 10 mg PO DAILY 08/15/22 04/27/24 Unknown History clonazepam 1 mg tablet 1 mg PO TID PRN Anxiety 08/15/22 04/27/24 Unknown History clonidine HCl 0.1 mg tablet 0.1 mg PO 3XD PRN Anxiety 08/15/22 04/27/24 Unknown History duloxetine 30 mg capsule,delayed 30 mg PO DAILY depressive disorder 08/15/22 04/27/24 Unknown History release famotidine 20 mg tablet 20 mg PO BID 08/15/22 04/27/24 Unknown History fexofenadine 180 mg tablet 180 mg PO DAILY 08/15/22 04/27/24 Unknown History fluocinonide 0.05 % topical cream appl topical BID PRN 08/15/22 03/24/24 Unknown History hydroxyzine HCl 25 mg tablet 25 mg PO Q8H PRN Itching 08/15/22 04/27/24 Unknown History loratadine 10 mg tablet 10 mg PO DAILY 08/15/22 04/27/24 Unknown History meclizine 25 mg tablet 25 mg PO TID PRN dizziness 08/15/22 04/27/24 Unknown History mirabegron 50 mg tablet,extended 50 mg PO DAILY 08/15/22 04/27/24 Unknown History release 24 hr (Myrbetriq) montelukast 10 mg tablet 10 mg PO QPM 08/15/22 04/27/24 Unknown History omeprazole 20 mg capsule,delayed 20 mg PO DAILY 08/15/22 04/27/24 Unknown History release pilocarpine HCl 5 mg tablet 5 mg PO BID PRN Dry Mouth 08/15/22 04/27/24 Unknown History riboflavin (vitamin B2) 400 mg 400 mg PO DAILY 08/15/22 03/24/24 Unknown History tablet risperidone 2 mg tablet 2 mg PO BEDTIME 08/15/22 04/27/24 Unknown History pregabalin 200 mg capsule 200 mg PO BID 12/17/22 04/27/24 Unknown History albuterol sulfate 2.5 mg/3 mL 2.5 mg inhalation Q6H PRN wheezing 06/27/23 04/27/24 Unknown History (0.083 %) solution for nebulization albuterol sulfate 90 mcg/actuation 2 puff inhalation ONCE PRN Wheezing 06/27/23 04/27/24 Unknown History aerosol inhaler (Ventolin HFA) CPAP 08/28/23 04/27/24 Unknown History ciclopirox 1 % shampoo topical 08/28/23 03/24/24 Unknown History clobetasol 0.05 % topical ointment 1 appl topical BID 08/28/23 03/24/24 Unknown History cyanocobalamin (vitamin B-12) 500 500 mcg PO DAILY 08/28/23 04/27/24 Unknown History mcg tablet diclofenac sodium 1 % topical gel topical BID 08/28/23 03/24/24 Unknown History fluticasone propionate 220 inhalation 08/28/23 03/24/24 Unknown History mcg/actuation HFA aerosol inhaler (Flovent HFA) hydrocortisone 2.5 % topical topical 08/28/23 03/24/24 Unknown History ointment lidocaine 5 % topical patch 1 patch topical DAILY PRN pain 08/28/23 03/24/24 Unknown History losartan 50 mg tablet 50 mg PO DAILY 08/28/23 04/27/24 Unknown History ondansetron HCl 8 mg tablet 8 mg PO TID PRN Nausea 08/28/23 04/27/24 Unknown History peg 3350-electrolytes 236 ml PO 08/28/23 03/24/24 Unknown History gram-22.74 gram-6.74 gram-5.86 gram solution (GaviLyte-G) riboflavin (vitamin B2) 100 mg 100 mg PO DAILY 08/28/23 04/27/24 Unknown History tablet rizatriptan 10 mg tablet 10 mg PO DAILY PRN Migraine 08/28/23 04/27/24 Unknown History Headache duloxetine 60 mg capsule,delayed 60 mg PO DAILY 02/20/24 03/24/24 Unknown History release amoxicillin 875 mg-potassium 1 tab PO BID 03/24/24 03/24/24 Unknown History clavulanate 125 mg tablet fremanezumab-vfrm 225 mg/1.5 mL 225 mg subcut QIDWMHS 03/24/24 04/27/24 Unknown History subcutaneous auto-injector (Ajovy) hydrochlorothiazide 25 mg tablet 25 mg PO DAILY 03/24/24 04/27/24 Unknown History xcvavllw-okasoiqkg-ppxlumuc 3.5 drp ophthalmic (eye) 03/24/24 03/24/24 Unknown History mg/mL-10,000 unit/mL-0.1% eye drops sodium fluoride 1.1 %-potassium PO 04/16/24 Unknown History nitrate 5 % dental paste Physical Exam Vital Signs and Narrative: Vital Signs: Last Vital Signs Temp 97.8 F 04/27/24 02:52 Pulse 76 04/27/24 02:52 Resp 20 04/27/24 02:52 BP 132/79 04/27/24 02:52 Pulse Ox 98 04/27/24 02:52 O2 Del Method Room Air 04/27/24 02:52 BMI result Body Mass Index 37.1 Constitutional - Awake and Alert, No apparent distress. Obese. Pleasant. Cooperative. HEENT - PERRL, EOMI. Normal sclerae. Heart - S1S2, RRR. Lungs - Normal lung expansion, Normal respiratory effort, No respiratory distress, CTA bilaterally Abdomen - NT / ND; +BS; No rebound or guarding - No CVA tenderness Extremities - Mild pitting edema. Generalized tenderness to palpation. Skin - Warm/Dry Neurological - Alert & oriented x3. No focal weakness grossly noted. Normal speech. Psychological - Appropriate affect Results Labs 04/26/24 23:32 04/26/24 23:32 Labs: Laboratory Results - last 24 hr 04/26/24 04/27/24 04/27/24 23:32 00:30 01:27 MCV 87.3 MCH 30.8 MCHC 35.2 H RDW 13.1 Plt Count 243 MPV 11.0 Immature Gran % (Auto) 0.2 Neut % (Auto) 66.3 Lymph % (Auto) 22.4 [place] % (Auto) 6.3 Eos % (Auto) 4.0 Baso % (Auto) 0.8 Lymph # (Auto) 1.9 [place] # (Auto) 0.6 Eos # (Auto) 0.4 Baso # (Auto) 0.1 Abs Immat Gran (auto) 0.02 Absolute Neuts (auto) 5.8 Absolute Nucleated RBC 0.000 Nucleated RBC % (auto) 0.0 PT 11.1 INR 0.9 APTT 30.5 D-Dimer High Sensitivty < 150 Anion Gap 16 Estim Creat Clear Calc 106.1 Estimated GFR > 60 Random Glucose 98 Calcium 10.6 H D Total Bilirubin 0.2 AST 57 H ALT 93 H Alkaline Phosphatase 67 Troponin I High Sens 872.3 H* 1129.7 H* C-Reactive Protein 2.00 H Total Protein 8.9 H Albumin 4.4 Imaging Radiologist's Impressions: Impressions Chest X-Ray 04/27/24 01:12 IMPRESSION: No evidence for active cardiopulmonary disease. Assessment and Plan (1) Non-ST elevated myocardial infarction (non-STEMI): Status: Acute (2) AIRAM (obstructive sleep apnea): Status: Acute Plan Marilyn Wells is a 49 y/o woman admitted with: Chest pain, likely ACS. ?pericarditis. Admit to hospitalist service. Telemetry. Continue treatment with aspirin 81 mg p.o. daily. Continue heparin IV infusion per protocol. Add high intensity statin. Start BB. Nitroglycerin sublingual as needed. Continue to monitor troponin. Check MOSHE. Check lipid panel and Hgb A1c. Cardiology consult. Essential hypertension. Switch HCTZ -->BB. Continue losartan. Obesity. BMI 37.1 kg/m2. Encourage weight loss. AIRAM. Nocturnal CPAP. Avoid use of sedatives. GERD. Continue PPI. Tobacco dependence. Tobacco cessation education. Avoid nicotine products due to ACS. Anxiety and depression. Continue home medications. Lupus and Sjogren's. Continue home meds. Hx of DVT. Not currently on anticoagulation. Polypharmacy. Follow-up by PCP to address this. Asthma. Not in acute exacerbation. Continue home medications. Med rec per pharmacy is still pending. DVT prophylaxis: Heparin IV infusion Code status: Full Patient will need hospitalization for at least 2 midnights for ACS management with IV heparin, aspirin, statin and beta brianna. Patient also will need evaluation by subspecialty. Quality Stroke Does the patient have a stroke diagnosis?: No VTE Prior VTE?: No VTE Risk Level:: Medical - moderate - high VTE Device Contraindication: Treatment Not Indicated VTE Drug Contraindication: N/A - Med Ordered
[2024-04-27] MEDS: Acetaminophen 325 MG TABLET 650 MG PO (04:16)
--- NOTE | 2024-04-27 04:20 | PC.NURSE ---
Patient medicated with Tylenol 650 mg PO for headache.
[2024-04-27 04:42] LABS: Hematocrit 38.3 % (37.0-47.0); Hemoglobin 13.2 g/dl (12.0-16.0); Mean Corpuscular HGB Conc 34.5 g/dl (31.0-35.0); Mean Corpuscular Hemoglobin 30.3 pg (27.0-33.0); Mean Corpuscular Volume 87.8 fL (80.0-98.0); Mean Platelet Volume 11.4 fL (9.4-12.3); Platelet Count 262 X10*3/uL (160-400); Red Blood Count 4.36 X10*6/uL (4.20-5.50); Red Cell Distribution Width 13.2 % (11.0-16.0); White Blood Count 8.7 X10*3/uL (4.8-10.8)
--- NOTE | 2024-04-27 04:58 | PC.NURSE ---
Patient brought her own CPAP from home. BP 111-132/70, P 71-76, chest pain 2/[address] Treadwell updated. Per MORIS MEHTA for patient to use her home CPAP at [facility] [place] [facility], keep nitro paste in place at this time.
[2024-04-27 05:03] LABS: Alanine Aminotransferase 86 U/L (0-31); Albumin Level 4.2 g/dL (3.5-5.0); Alkaline Phosphatase 66 U/L (39-117); Anion Gap 21 (12-20); Aspartate Amino Transferase 58 U/L (5-31); Bilirubin Total 0.3 mg/dL (0.0-1.0); Blood Urea Nitrogen 7 mg/dL (9-16); Calcium 10.1 mg/dL (8.4-10.2); Carbon Dioxide 23 mmol/L (22-29); Chloride 99 mmol/L (96-108); Cholesterol 187 mg/dL (<200); Creatinine Clr Calc Pharmacy 111.7; Estimated Glomerular Filt Rate > 60; Glucose Random 100 mg/dL (60-115); HDL Cholesterol 43 mg/dL (>40); LDL Cholesterol Calculated 110 mg/dL (<100); Potassium 3.6 mmol/L (3.3-5.1); Sodium 139 mmol/L (135-145); Total Protein 8.5 g/dL (6.5-8.0); Triglycerides 170 mg/dL (<150)
[2024-04-27 06:28] VITALS: BP 111/65; PULSE 69; RESP 18; TEMP 36.1; O2SAT 98
--- NOTE | 2024-04-27 07:00 | CA_ITS ---
Transthoracic Echocardiogram Patient (Last, First, Middle): Marilyn Wells, Gender: Female Date of : 1975 Age: 49 Procedure Date: 04/27/2024 Procedure Type: Transthoracic Echocardiogram [place] [facility] [place] Height: 167.64 cm Weight: 104.33 kg BSA: 2.12 m2 Heart Rate: 66 bpm BP: 115 / 75 mmHg Tactical Debriefer: Referring MD: Galdino Heredia MD Library Media Specialist: Petar Robles MD Symptoms: ACS Study Quality: Adequate ECG Rhythm: Sinus Conclusions: - 1. Normal LV ejection fraction 60 65% with focal wall motion abnormality in the distal lateral and apical wall which may represent coronary artery disease 2. Cardiac valvular Dopplers within normal limits 3. Normal RV systolic pressure 4. No gross pericardial effusion Findings Procedure Information Contrast agent, definity, is being given per protocol without apparent complications. Left Ventricle Normal left ventricular cavity size. There is mildly increased left ventricular wall thickness. The left ventricular systolic function is normal. The visually estimated ejection fraction is between 60-65%. Spectral Doppler is indicative of a normal filling pattern. Wall Motion Rest Echo Findings The apex, apical lateral, and apical septum segments are hypokinetic. All other scored wall segments showed normal motion. Right Ventricle Normal right ventricular cavity size and systolic function. Atria The left atrium is normal in size. There is no evidence of interatrial shunt. The right atrium is normal in size. Aortic Valve The aortic valve was not well visualized. There is no aortic valve stenosis. There is no aortic valve regurgitation. Mitral Valve Likely normal mitral valve structure and function. There is trace mitral valve regurgitation. There is no mitral valve stenosis. Pulmonic Valve The pulmonic valve was not well visualized. There is no pulmonic valve regurgitation. Tricuspid Valve Normal tricuspid valve structure. There is trace tricuspid valve regurgitation. The right ventricular systolic pressure is normal. The right ventricular systolic pressure is 17 mmHg. Normal right atrial pressure. There is no evidence of pulmonary hypertension. Great Vessels All visible segments of the aorta are normal in size. The pulmonary artery was not well visualized. Venous The inferior vena cava is normal in size and collapses greater than 50% with inspiration. Pericardium/Pleural There is no evidence of pericardial effusion. Prior Study Comparison No prior study available for comparison. Measurements 2D Linear Measurements IVSd: 1.23 0.6-0.9/0.6-1.0 cm LVIDd: 3.96 3.9-5.3/4.2-5.9 cm LVIDd Index: 1.87 2.4-3.2/2.2-3.1 cm/m2 LVIDs: 2.60 2.0-3.6 cm LVPWd: 1.28 0.7-1.1 cm LA Diam: 3.60 2.7-3.8/3.0-4.0 cm LAIDs Index: 1.70 1.5-2.3 cm/m2 LV Mass: 217.09 67-162/88-224 g LV Mass Index: 102.40 43-95/49-115 g/m2 LVOT Diam: 2.00 3.0+(-)1.3 cm 2D Systolic Function EF 4C: 63.30 >55% EF 2C: 64.20 >55% EF BiP: 62.20 >55% Mitral Valve MV Pk E: 0.89 MV PK A: 0.62 MV Decel Time: 181.00 E/A: 1.40 E'Lateral: 9.14 E'Medial: 7.07 E/E' Med: 12.60 E/E' Lat: 9.70 PHT: 53.00 MVA PHT: 4.15 Decel Coryell: 4.92 Aortic Valve AoV Pk Santino: 1.30 AoV Mn Santino: 0.79 AoV VTI: 0.26 AoV Pk Grad: 7.00 Aov Mn Grad: 3.00 GERHARD Cont.VTI: 2.95 LVOT LVOT Pk Santino: 1.13 LVOT Mn Santino: 0.75 LVOT VTI: 0.25 LVOT Pk Grad: 5.00 LVOT Mn Grad: 3.00 LVOT Diam: 2.00 LVOT Area: 3.14 Diastolic Function MV Pk E: 0.89 MV Pk A: 0.62 E/A: 1.40 E'Medial: 7.07 E/E' Med: 12.60 E' Laterial: 9.14 E/E' Lat: 9.70 Right Ventricle TAPSE (mm): 24.90 TVS' Santino: 8.80 Tricuspid Valve TR Pk Santino: 1.85 TR Pk Grad: 14.00 RA Press: 3.00 RVSP: 17.00 Great Vessels Aorta Sinus of Valsalva: 3.00 2.0-3.5 cm Ao Asc: 2.90 2.1-3.4 cm Pulmonary Valve PV Pk Santino: 0.79 Peak PV Grad: 3.00 Updated in Other Vendor System with Status of Final Petar Robles MD electronically signed on 04/27/2024 11:09:37 AM with status of Final
[2024-04-27 07:32] LABS: Estimated Average Glucose 117 mg/dL; Hemoglobin A1c % 5.7 % (<6.0)
--- NOTE | 2024-04-27 07:51 | PC.NURSE ---
Pt is alert and oriented. Denies pain, NSR on tele with ST elevation noted. Heparin Gtt at 10mls/hr BP soft 103/63, Sulema QUINTANA aware. Room assgn received and report put in
--- NOTE | 2024-04-27 07:56 | PM.EVENT ---
Event Note Date of Service: 04/27/24 Event Note: Marilyn Wells is a 49 y/o woman admitted with chest pain. Chest pain, likely ACS. ?pericarditis. Telemetry. Continue heparin IV infusion per protocol. asa, statin and BB Nitroglycerin sublingual as needed. Check MOSHE. Cardiology consult. Essential hypertension. Switch HCTZ -->BB. Continue losartan. Obesity. BMI 37.1, Encourage weight loss. AIRAM. Nocturnal CPAP. Avoid use of sedatives. GERD. Continue PPI. Tobacco dependence. Tobacco cessation education. Avoid nicotine products due to ACS. Anxiety and depression. Continue home medications. Lupus and Sjogren's. Continue home meds. Hx of DVT. Not currently on anticoagulation. Polypharmacy. Follow-up by PCP to address this. Asthma. Not in acute exacerbation. Continue home medications. DVT prophylaxis: Heparin IV infusion Attending Dr. Saunders Code status: Full Patient will need hospitalization for at least 2 midnights for ACS management with IV heparin, aspirin, statin and beta brianna. Patient also will need evaluation by subspecialty. Time Spent With Patient Time: Total time managing care of this patient today ____ minutes.
[2024-04-27 08:12] VITALS: BP 107/70; PULSE 70; RESP 24; TEMP 36.6; O2SAT 97
[2024-04-27] MEDS: Atorvastatin Calcium 80 MG TABLET PO (08:43)
[2024-04-27] MEDS: Metoprolol Succinate ER 12.5 MG HALFTAB.ER.24H PO (08:44)
[2024-04-27] MEDS: Aspirin Enteric Coated 81 MG TABLET.DR PO (08:44)
[2024-04-27] MEDS: 0.9 % Sodium Chloride Flush 3 ML SYRINGE IVFLUSH (08:48)
[2024-04-27 09:17] LABS: PTT Heparin Drip 45.4 SEC (53-77.9)
[2024-04-27 09:28] VITALS: BP 115/75; PULSE 70; RESP 16; TEMP 36.1; O2SAT 97
[2024-04-27] MEDS: Heparin Sodium,Porcine 5,000 UNIT/ML VIAL 4200 UNIT IVPUSH (09:30)
[2024-04-27 10:22] LABS: Troponin-I High Sensitivity 4752.3 ng/L (<3.5-17.0)
--- NOTE | 2024-04-27 11:11 | PHA.MEDREC ---
Pharmacy Consult ? Medication Reconciliation Pharmacy has completed the medication reconciliation. Spoke to patient and confirmed medication list. She takes vitamin B12 1000 mcg daily, vitamin B2 400 mg daily. She uses the edgardo/poly/dex eye drops for allergies ( wanted her to try it for 2 weeks). She takes loratadine in the morning, cetirizine at 3pm and fexofenadine at night daily. She takes Ajovy once a month, next dose is due on may 15. She uses rizatriptan (once a day prn) and also naratriptan (q4h prn).
--- NOTE | 2024-04-27 11:54 | MHC.CM.PN ---
Female 49 DX ACS She will [place] [facility] [place]. She lives by herself. She uses a cane or walker prn. She is independent with adls. She has a HCP @ [facility] [place]. A copy has been requested.
[2024-04-27 12:00] VITALS: BP 113/77; PULSE 75; RESP 16; TEMP 36.1; O2SAT 97
--- NOTE | 2024-04-27 12:04 | P.CONCA_ITS ---
History of Present Illness History of Present Illness Date of Service: 04/27/24 Requesting physician: Sulema Wells Consult reason: myocardial infarction Chief complaint: acute coronary syndrome Narrative: I was consulted to see Marilyn in cardiology consultation today for NSTEMI. She has a pleasant 49 year female with prior history of hypertension, obesity, connective tissue disease with SLE as well as Sjogren's syndrome, obstructive sleep apnea, osteoarthritis, prediabetes, with no significant past cardiovascular history. Patient came in said about last Saturday she would episode of retrosternal chest pressure and felt bilateral hand numbness. Symptoms then subsided and then recurred again but then subsided after she woke up from sleep. She did not pay much attention to it and thought this was related to anxiety as her mother was undergoing surgery took longer than expected. She did okay over the last 4 days and Saturday morning started having this severe retrosternal chest pressure associated feeling weak and tired and numbness in both her hands. She was she was sought this was anxiety coming back. Symptoms would get worse with movement and would get better when she would be resting. Symptoms persisted, she tried antacids and she came to the emergency room last night. Her EKG shows nonspecific ST elevation diffusely. Her initial troponin was 800 range subsequently to 1200 range and this morning to 4500 range. However says since been in the hospital and initiated on therapy her chest pain is almost gone. She has no shortness of breath, orthopnea, PND. She has no recent sick contacts or any viral syndrome symptoms. She denies any lightheadedness, syncope. No recent heart failure symptoms. She denies any symptoms like this in the past. She smokes about 10 cigarettes a day. Review of Systems 2 Constitutional: Constitutional: Reports weakness Eyes: Eyes: Reports no additional eye complaints ENT: Reports system reviewed and no additional complaints, except as documented Cardiovascular: Cardiovascular: Reports chest pain at rest, Reports chest pain with activity, Denies leg edema, Denies lightheadedness, Denies Loss of Consciousness and Denies dyspnea Respiratory: Respiratory: Reports no additional respiratory complaints and Denies dyspnea Gastrointestinal: Gastrointestinal: Reports no additional gastrointestinal complaints Genitourinary: Genitourinary: Reports no additional female genitourinary complaints Musculoskeletal: Musculoskeletal: Reports no additional musculoskeletal complaints Neurologic: Reports system reviewed and no additional complaints, except as documented and Reports weakness Psychiatric: Psychiatric: Reports no additional psychiatric complaints Endocrine: Endocrine: Reports no additional endocrine complaints Hematologic/Lymphatic: Hematologic/Lymphatic: Reports no additional hematologic/lymphatic complaints Allergic/Immunologic: Allergic/Immunologic: Reports no additional allergic/immunologic complaints PMFSH Past Medical History Medical History Dvt femoral (deep venous thrombosis) Gout GERD (gastroesophageal reflux disease) Vertigo Asthma Migraine Anxiety and depression Fibromyalgia Neuropathy H/O Sjogren's disease Discoid lupus Lupus Family History Family History Other Arthritis Lupus Surgical History Surgical History Hx of hysterectomy Hx of thumb surgery Hx of knee surgery Social History Social History Household Members: Family Housing: Apartment Do you presently have visiting nurse or other home services: No Alcohol intake: former Patient Tobacco Use Status: Current everyday Tobacco user Tobacco use type: Cigarette Cigarette Packs Per Day: 0.5 Cigarettes Per Day: 10.0 service: No Current occupational status: unemployed Meds Allergies Allergy/AdvReac Type Severity Reaction Status Date / Time No Known Allergies Allergy Verified 04/26/24 23:23 Active Medications: Current Medications Acetaminophen (Acetaminophen 325 Mg Tablet) 650 mg PO Q6H PRN PRN Reason: Pain, Mild (Pain Scale 1-3), fever or headache Last Admin: 04/27/24 04:16 Dose: 650 mg Albuterol Sulfate (Albuterol Sulfate (0.083%) 2.5 Mg/3 Ml Vial.Neb) 2.5 mg INHALE Q6H PRN PRN Reason: wheezing Albuterol Sulfate (Albuterol Sulfate 90 Mcg 8 Gm Inhaler) 2 puff INHALE Q6H PRN PRN Reason: Wheezing Aspirin (Aspirin Enteric Coated 81 Mg Tablet.) 81 mg PO DAILY [facility] Last Admin: 04/27/24 08:44 Dose: 81 mg Atorvastatin Calcium (Atorvastatin Calcium 80 Mg Tablet) 80 mg PO DAILY [facility] Last Admin: 04/27/24 08:43 Dose: 80 mg Calcium Carbonate (Calcium Carbonate 750 Mg Tab.Chew) 750 mg PO Q4H PRN PRN Reason: Heartburn Clonazepam (Clonazepam 1 Mg Tablet) 1 mg PO TID PRN PRN Reason: Anxiety Clonidine HCl (Clonidine Hcl 0.1 Mg Tablet) 0.1 mg PO TID PRN; Protocol PRN Reason: Anxiety Cyanocobalamin (Cyanocobalamin (Vitamin B-12) 1,000 Mcg Tablet) 1,000 mcg PO DAILY [facility] Duloxetine HCl (Duloxetine Hcl 30 Mg Capsule.Dr) 30 mg PO DAILY [facility] Famotidine (Famotidine 20 Mg Tablet) 20 mg PO BID [facility] Heparin Sodium (Porcine) (Heparin Sodium,Porcine 5,000 Unit/Ml Vial) 4,200 unit 40 unit/kg (4200 unit) IVPUSH PROTOCOL BOLUS PRN; Protocol PRN Reason: 40 unit/kg - Heparin Protocol Last Admin: 04/27/24 09:30 Dose: 4,200 unit Heparin Sodium (Porcine) (Heparin Sodium,Porcine 5,000 Unit/Ml Vial) 8,300 unit 80 unit/kg (8300 unit) IVPUSH PROTOCOL BOLUS PRN; Protocol PRN Reason: 80 unit/kg - Heparin Protocol Hydroxychloroquine Sulfate (Hydroxychloroquine Sulfate 200 Mg Tablet) 200 mg PO BID [facility] Heparin Sodium/Sodium Chloride (Heparin Sodium,Porcine/1/2ns) 25,000 unit in 250 mls @ 0 mls/hr IVCONT .Q0M RAYA; Protocol Last Titration: 04/27/24 09:31 Dose: 11.58 units/kg/hr, 12.08 mls/hr Loratadine (Loratadine 10 Mg Tablet) 10 mg PO DAILY [facility] Magnesium Hydroxide (Milk Of Magnesia 30 Ml Oral.Susp) 30 ml PO DAILY PRN PRN Reason: Constipation Meclizine HCl (Meclizine Hcl 25 Mg Tablet) 25 mg PO TID PRN PRN Reason: dizziness Metoprolol Succinate (Metoprolol Succinate Er 12.5 Mg Halftab.Er.24h) 12.5 mg PO DAILY [facility]; Protocol Last Admin: 04/27/24 08:44 Dose: 12.5 mg Mirabegron (Mirabegron 50 Mg Tab.Er.24h) 50 mg PO DAILY [facility] Montelukast Sodium (Montelukast Sodium 10 Mg Tablet) 10 mg PO BEDTIME [facility] Nitroglycerin (Nitroglycerin 0.4 Mg Tab.Subl) 0.4 mg SUBLINGUAL Q5MX3 PRN PRN Reason: Chest Pain Non-Formulary Medication (Fexofenadine) 180 mg PO DAILY [facility] Non-Formulary Medication (Pilocarpine Hcl) 5 mg PO BID PRN PRN Reason: Dry Mouth Non-Formulary Medication (Rizatriptan) 10 mg PO DAILY PRN PRN Reason: Migraine Headache Omeprazole (Omeprazole 20 Mg Capsule.Dr) 20 mg PO DAILY@0630 [facility] Pregabalin (Pregabalin 200 Mg Capsule) 200 mg PO BID [facility] Risperidone (Risperidone 2 Mg Tablet) 2 mg PO BEDTIME [facility] Sodium Chloride (0.9 % Sodium Chloride Flush 3 Ml Syringe) 3 ml IVFLUSH QSHIFT [facility] Last Admin: 04/27/24 08:48 Dose: 3 ml Home Medications ?Medication ?Instructions ?Recorded ?Confirmed ?Last Taken ?Type acetaminophen 500 mg tablet 1,000 mg PO Q8H PRN pain 08/15/22 04/27/24 Unknown History amitriptyline 10 mg tablet 10 mg PO BEDTIME 08/15/22 04/27/24 04/26/24 History betamethasone dipropionate 0.05 % 1 appl topical BID PRN Rash 08/15/22 04/27/24 Unknown History topical ointment budesonide-formoterol HFA 80 1 puff inhalation BID PRN wheezing 08/15/22 04/27/24 04/26/24 History mcg-4.5 mcg/actuation aerosol inhaler (Symbicort) cetirizine 10 mg tablet 10 mg PO DAILY@1500 08/15/22 04/27/24 04/26/24 History clonazepam 1 mg tablet 1 mg PO TID PRN Anxiety 08/15/22 04/27/24 Unknown History clonidine HCl 0.1 mg tablet 0.1 mg PO 3XD PRN Anxiety 08/15/22 04/27/24 Unknown History duloxetine 30 mg capsule,delayed 30 mg PO DAILY depressive disorder 08/15/22 04/27/24 04/26/24 History release famotidine 20 mg tablet 20 mg PO BID 08/15/22 04/27/24 04/26/24 History fexofenadine 180 mg tablet 180 mg PO DAILY 08/15/22 04/27/24 04/26/24 History fluocinonide 0.05 % topical cream 1 appl topical BID PRN Skin 08/15/22 04/27/24 Unknown History Irritation loratadine 10 mg tablet 10 mg PO DAILY 08/15/22 04/27/24 04/26/24 History meclizine 25 mg tablet 25 mg PO TID PRN dizziness 08/15/22 04/27/24 Unknown History mirabegron 50 mg tablet,extended 50 mg PO DAILY 08/15/22 04/27/24 04/26/24 History release 24 hr (Myrbetriq) montelukast 10 mg tablet 10 mg PO QPM 08/15/22 04/27/24 04/26/24 History omeprazole 20 mg capsule,delayed 20 mg PO DAILY 08/15/22 04/27/24 04/26/24 History release pilocarpine HCl 5 mg tablet 5 mg PO BID PRN Dry Mouth 08/15/22 04/27/24 Unknown History riboflavin (vitamin B2) 400 mg 400 mg PO DAILY 08/15/22 04/27/24 04/26/24 History tablet risperidone 2 mg tablet 2 mg PO BEDTIME 08/15/22 04/27/24 04/26/24 History pregabalin 200 mg capsule 200 mg PO BID 12/17/22 04/27/24 04/26/24 History albuterol sulfate 2.5 mg/3 mL 2.5 mg inhalation Q6H PRN wheezing 06/27/23 04/27/24 Unknown History (0.083 %) solution for nebulization albuterol sulfate 90 mcg/actuation 2 puff inhalation Q6H PRN Wheezing 06/27/23 04/27/24 Unknown History aerosol inhaler (Ventolin HFA) CPAP 08/28/23 04/27/24 Unknown History ciclopirox 1 % shampoo 1 ea topical Q7D PRN Rash 08/28/23 04/27/24 Unknown History clobetasol 0.05 % topical ointment 1 appl topical BID 08/28/23 04/27/24 Unknown History diclofenac sodium 1 % topical gel 1 g topical QID PRN Pain 08/28/23 04/27/24 Unknown History hydrocortisone 2.5 % topical 1 appl topical DAILY PRN Rash 08/28/23 04/27/24 Unknown History ointment losartan 50 mg tablet 50 mg PO DAILY 08/28/23 04/27/24 04/26/24 History ondansetron HCl 8 mg tablet 8 mg PO TID PRN Nausea 08/28/23 04/27/24 Unknown History rizatriptan 10 mg tablet 10 mg PO DAILY PRN Migraine 08/28/23 04/27/24 Unknown History Headache fremanezumab-vfrm 225 mg/1.5 mL 225 mg subcut QMONTH 03/24/24 04/27/24 Unknown History subcutaneous auto-injector (Ajovy) hydrochlorothiazide 25 mg tablet 25 mg PO DAILY 03/24/24 04/27/24 04/26/24 History sodium fluoride 1.1 %-potassium 1 appl PO BID 04/16/24 04/27/24 04/26/24 History nitrate 5 % dental paste cyanocobalamin (vitamin B-12) 1,000 mcg PO DAILY 04/27/24 04/27/24 04/26/24 History 1,000 mcg tablet (Vitamin B-12) naratriptan 2.5 mg tablet 2.5 mg PO DAILY PRN Migraine 04/27/24 04/27/24 Unknown History Headache [id number] 3.5 1 drp ophthalmic (eye) QID 04/27/24 04/27/24 04/26/24 History mg/mL-10,000 unit/mL-0.1% eye drops Physical Exam 2 Vital Signs: Vital Signs: Last Vital Signs Temp 97 F 04/27/24 09:28 Pulse 70 04/27/24 09:28 Resp 16 04/27/24 09:28 BP 115/75 04/27/24 09:28 Pulse Ox 97 04/27/24 09:28 O2 Del Method Room Air 04/27/24 09:28 O2 Flow Rate 0 04/27/24 06:28 BMI result Body Mass Index 37.1 Const: General: cooperative, comfortable, no acute distress, alert and awake Nutritional Appearance: obese Orientation/consciousness: patient oriented x3 Limitations: no limitations HEENT: Head: Yes normocephalic and Yes atraumatic Neck: Neck: Yes trachea midline, Yes supple and Yes no JVD Chest: Chest palpation & inspection: normal inspection of the chest Resp: Effort & Inspection: normal respiratory effort Auscultation: clear to auscultation bilaterally Cardio: Jugular venous distension: no JVD Palpation: normal PMI Rate: r egular rate Rhythm: regular rhythm Heart sounds: S1 normal heart sound present, S2 normal heart sound present, no click, no gallops, no murmurs and no rubs GI: Auscultation: normal bowel sounds Skin: General skin exam: no rashes or lesions noted Neuro: General: patient oriented x3 and no focal motor deficits Extrem: General: Yes no clubbing, cyanosis or edema Objective Labs and Meds 04/27/24 03:57 04/27/24 03:57 Lab results: Laboratory Results - last 24 hr 04/26/24 04/27/24 04/27/24 23:32 00:30 01:27 WBC 8.7 RBC 4.26 Hgb 13.1 Hct 37.2 MCV 87.3 MCH 30.8 MCHC 35.2 H RDW 13.1 Plt Count 243 MPV 11.0 Immature Gran % (Auto) 0.2 Neut % (Auto) 66.3 Lymph % (Auto) 22.4 [place] % (Auto) 6.3 Eos % (Auto) 4.0 Baso % (Auto) 0.8 Lymph # (Auto) 1.9 [place] # (Auto) 0.6 Eos # (Auto) 0.4 Baso # (Auto) 0.1 Abs Immat Gran (auto) 0.02 Absolute Neuts (auto) 5.8 Absolute Nucleated RBC 0.000 Nucleated RBC % (auto) 0.0 PT 11.1 INR 0.9 APTT 30.5 aPTT Heparin Protocol D-Dimer High Sensitivty < 150 Sodium 138 Potassium 3.7 Chloride 102 Carbon Dioxide 24 Anion Gap 16 BUN 8 L Creatinine 0.80 Estim Creat Clear Calc 106.1 Estimated GFR > 60 Random Glucose 98 Estimat Average Glucose Hemoglobin A1c % Calcium 10.6 H D Total Bilirubin 0.2 AST 57 H ALT 93 H Alkaline Phosphatase 67 Troponin I High Sens 872.3 H* 1129.7 H* C-Reactive Protein 2.00 H Total Protein 8.9 H Albumin 4.4 Triglycerides Cholesterol LDL Cholesterol, Calc HDL Cholesterol 04/27/24 04/27/24 03:57 08:43 WBC 8.7 RBC 4.36 Hgb 13.2 Hct 38.3 MCV 87.8 MCH 30.3 MCHC 34.5 RDW 13.2 Plt Count 262 MPV 11.4 Immature Gran % (Auto) Neut % (Auto) Lymph % (Auto) [place] % (Auto) Eos % (Auto) Baso % (Auto) Lymph # (Auto) [place] # (Auto) Eos # (Auto) Baso # (Auto) Abs Immat Gran (auto) Absolute Neuts (auto) Absolute Nucleated RBC 0.000 Nucleated RBC % (auto) 0.0 PT INR APTT aPTT Heparin Protocol 45.4 L D-Dimer High Sensitivty Sodium 139 Potassium 3.6 Chloride 99 Carbon Dioxide 23 Anion Gap 21 H BUN 7 L Creatinine 0.76 Estim Creat Clear Calc 111.7 Estimated GFR > 60 Random Glucose 100 Estimat Average Glucose 117 Hemoglobin A1c % 5.7 Calcium 10.1 Total Bilirubin 0.3 AST 58 H ALT 86 H Alkaline Phosphatase 66 Troponin I High Sens 4752.3 H* D C-Reactive Protein Total Protein 8.5 H Albumin 4.2 Triglycerides 170 H Cholesterol 187 LDL Cholesterol, Calc 110 H HDL Cholesterol 43 Conclusions: - 1. Normal LV ejection fraction 60 65% with focal wall motion abnormality in the distal lateral and apical wall which may represent coronary artery disease 2. Cardiac valvular Dopplers within normal limits 3. Normal RV systolic pressure 4. No gross pericardial effusion Imaging Radiologist's impression: Impressions Chest X-Ray 04/27/24 01:12 IMPRESSION: No evidence for active cardiopulmonary disease. Assessment and Plan (1) Non-ST elevated myocardial infarction (non-STEMI): Status: Acute Middle-aged woman with multiple risk factors including connective tissue disease and other risk factors presents with typical symptoms and EKG changes as well as troponins consistent with acute myocardial injury and highly suggestive of acute coronary syndrome with high risk features. She is currently symptom-free. She has been started on appropriate therapy at this point time. Most likely cause of her symptoms is plaque rupture and primary acute coronary syndrome. Less likely that this could represent acute myopericarditis. However I think it is diagnose of exclusion. At this point time I think she will require cardiac catheterization. I discussed in details the procedure as well as associated risks, benefits, alternatives. She understands agrees and she wants to pursue invasive approach I think which is the best approach at this point in time. Continue aspirin, high-intensity statin therapy, IV heparin as well as metoprolol therapy. Continue other therapy for her rheumatologic disease. Arrangements have been made for patient to be transferred to [facility]. Thank you for allowing me to partake in the care Procedures Date of Service Date of Service: 04/27/24
--- NOTE | 2024-04-27 12:29 | PC.NURSE ---
pt has a bed in [facility] M[facility] , report called to Terrence ARNOLD .
--- NOTE | 2024-04-27 12:56 | PM.DS ---
DS: Providers Provider Date of Service: 04/27/24 Date of admission: 04/27/24 03:03 Primary care physician: Jerri Antunez MD Consults: 04/27/24 03:09 Consult to Cardiology Routine Consulting Provider: [facility] Reason for consultation: ACS Has provider been notified: Yes DS: Diagnosis Discharge Diagnosis (1) Non-ST elevated myocardial infarction (non-STEMI): Status: Acute DS: Summary Hospital Course Hospital Course: History and physical as per admitting provider. Marilyn Wells is a 49 years old woman with a complex medical history including lupus, essential hypertension, GERD, Sjogren's, DVT (not currently on aspirin or any anticoagulant), obesity, AIRAM on CPAP and ongoing tobacco smoking presents to the emergency department complaining of chest pain that started Saturday. She described the pain as a burning sensation in the middle of her chest without radiation. The pain has been constant but with fluctuances in intensity. She took famotidine and Tums without improvement of symptoms. Chest pain does not increase with respiration. Patient denies associated shortness on breath, palpitations or dizziness. She did report some diaphoresis. Patient also mentioned that today her blood pressure was significantly high, 172/104. She denies history of coronary artery disease, TN, heart failure, strokes or type 2 diabetes mellitus (but prediabetic). As mentioned before she is a tobacco smoker -smokes 10 cigarettes daily but denied alcohol abuse or illicit drug use. In the ED, patient was found to have an initial BP of 167/94, most recent one is 132/79. The rest of vital signs are normal. Blood workup including CBC and CMP are unremarkable except for slight elevation of transaminases. Troponin is markedly elevated (872.3--> 1129.7). CXR is negative. ECG x2 show mild ST elevation in basically all leads. ED tx: Nitroglycerin ointment 1 in, aspirin 162 p.o. and heparin IV infusion 49-year-old woman treated for chest pain, NSTEMI. Patient reported that she was getting midsternal chest pressure that was off and on without radiation. She reported that she waited a few days until she decided to come to the ER for further evaluation. She does have a history of lupus and thought maybe it was related to that. On arrival to the ER she was noted to have elevated troponin of 872.3 and subsequent troponins also markedly elevated at 1129.7 and 4752.3. She was placed on an IV heparin drip per protocol. Started on aspirin, statin and beta-brianna along with nitroglycerin sublingual as needed. She was seen and evaluated by Cardiology who recommended transfer to [facility] for cardiac catheterization. History of essential hypertension. Hydrochlorothiazide switched to beta-brianna. Losartan held due to soft blood pressures Obesity. BMI 37.1. Discussed importance of weight management as this may be contributing to worsening of other comorbidities Obstructive sleep apnea. Nocturnal CPAP GERD. Continue PPI Tobacco dependence. Discussed importance of smoking cessation. No NRT due to ACS History of DVT. Not currently on anticoagulation History of anxiety and depression. Continue home medications Lupus and Sjogren's. Continue home medications Time Attestation Discharge Coordination Time (in mins): 35 Quality: Safe Use of Opioids Does Pt have an Active Cancer Diagnosis on the Problem List?: No Quality: Stroke Does the patient have a stroke diagnosis?: No Physical Exam Vital Signs: Vital Signs: Last Vital Signs Temp 96.9 F 04/27/24 12:00 Pulse 75 04/27/24 12:00 Resp 16 04/27/24 12:00 BP 113/77 04/27/24 12:00 Pulse Ox 97 04/27/24 12:00 O2 Del Method Room Air 04/27/24 12:00 O2 Flow Rate 0 04/27/24 06:28 BMI result Body Mass Index 37.1 Appearing in no acute distress head is normocephalic atraumatic eyes pupils are PERRLA sclera is anicteric mouth throat mucous membranes are intact and moist neck is supple no lymphadenopathy, no JVD noted lung sounds are clear to auscultation heart regular rate rhythm, clear S1, S2 positive bowel sounds, abdomen is soft, nontender neuro patient is alert x3, no focal deficits DS: Data Data Completed and Pending Labs on day of discharge: Laboratory Results - last 24 hr 04/26/24 04/27/24 04/27/24 23:32 00:30 01:27 WBC 8.7 RBC 4.26 Hgb 13.1 Hct 37.2 MCV 87.3 MCH 30.8 MCHC 35.2 H RDW 13.1 Plt Count 243 MPV 11.0 Immature Gran % (Auto) 0.2 Neut % (Auto) 66.3 Lymph % (Auto) 22.4 [place] % (Auto) 6.3 Eos % (Auto) 4.0 Baso % (Auto) 0.8 Lymph # (Auto) 1.9 [place] # (Auto) 0.6 Eos # (Auto) 0.4 Baso # (Auto) 0.1 Abs Immat Gran (auto) 0.02 Absolute Neuts (auto) 5.8 Absolute Nucleated RBC 0.000 Nucleated RBC % (auto) 0.0 PT 11.1 INR 0.9 APTT 30.5 aPTT Heparin Protocol D-Dimer High Sensitivty < 150 Sodium 138 Potassium 3.7 Chloride 102 Carbon Dioxide 24 Anion Gap 16 BUN 8 L Creatinine 0.80 Estim Creat Clear Calc 106.1 Estimated GFR > 60 Random Glucose 98 Estimat Average Glucose Hemoglobin A1c % Calcium 10.6 H D Total Bilirubin 0.2 AST 57 H ALT 93 H Alkaline Phosphatase 67 Troponin I High Sens 872.3 H* 1129.7 H* C-Reactive Protein 2.00 H Total Protein 8.9 H Albumin 4.4 Triglycerides Cholesterol LDL Cholesterol, Calc HDL Cholesterol 04/27/24 04/27/24 03:57 08:43 WBC 8.7 RBC 4.36 Hgb 13.2 Hct 38.3 MCV 87.8 MCH 30.3 MCHC 34.5 RDW 13.2 Plt Count 262 MPV 11.4 Immature Gran % (Auto) Neut % (Auto) Lymph % (Auto) [place] % (Auto) Eos % (Auto) Baso % (Auto) Lymph # (Auto) [place] # (Auto) Eos # (Auto) Baso # (Auto) Abs Immat Gran (auto) Absolute Neuts (auto) Absolute Nucleated RBC 0.000 Nucleated RBC % (auto) 0.0 PT INR APTT aPTT Heparin Protocol 45.4 L D-Dimer High Sensitivty Sodium 139 Potassium 3.6 Chloride 99 Carbon Dioxide 23 Anion Gap 21 H BUN 7 L Creatinine 0.76 Estim Creat Clear Calc 111.7 Estimated GFR > 60 Random Glucose 100 Estimat Average Glucose 117 Hemoglobin A1c % 5.7 Calcium 10.1 Total Bilirubin 0.3 AST 58 H ALT 86 H Alkaline Phosphatase 66 Troponin I High Sens 4752.3 H* D C-Reactive Protein Total Protein 8.5 H Albumin 4.2 Triglycerides 170 H Cholesterol 187 LDL Cholesterol, Calc 110 H HDL Cholesterol 43 Discharge Plan Discharge Anticipated Discharge Date/Time: 04/27/24 12:32 Patient Disposition: Xfer Acute Care Hospital Discharge Diagnosis: NSTEMI Referrals: Jerri Daniel MD [Primary Care Provider] - 1 Week Discharge Medications: New atorvastatin 80 mg Tablet 80 mg PO DAILY Qty: 30 0RF heparin(porcine) in 0.45% NaCl 25,000 unit/250 mL Parenteral Solution 25,000 unit continuous IV infusion .Q0M Qty: 6000 0RF metoprolol succinate [Toprol XL] 25 mg tablet extended release 24 hr 12.5 mg PO DAILY Qty: 30 0RF aspirin 81 mg Tablet,Delayed Release (Dr/Ec) 81 mg PO DAILY Qty: 30 0RF Continued cyclobenzaprine 5 mg tablet 5 - 10 mg PO BEDTIME PRN (Reason: for muscle spasm) Qty: 30 2RF cyanocobalamin (vitamin B-12) [Vitamin B-12] 1,000 mcg tablet 1,000 mcg PO DAILY neomycin-polymyxin B-dexameth 3.5mg/mL-10,000 unit/mL-0.1 % drops,suspension 1 drp ophthalmic (eye) QID naratriptan 2.5 mg tablet 2.5 mg PO DAILY PRN (Reason: Migraine Headache) risperidone 2 mg tablet 2 mg PO BEDTIME clonidine HCl 0.1 mg tablet 0.1 mg PO 3XD PRN (Reason: Anxiety) amitriptyline 10 mg tablet 10 mg PO BEDTIME duloxetine 30 mg capsule,delayed release(DR/EC) 30 mg PO DAILY famotidine 20 mg tablet 20 mg PO BID riboflavin (vitamin B2) 400 mg tablet 400 mg PO DAILY betamethasone dipropionate 0.05 % ointment 1 appl topical BID PRN (Reason: Rash) fluocinonide 0.05 % cream 1 appl topical BID PRN (Reason: Skin Irritation) clonazepam 1 mg tablet 1 mg PO TID PRN (Reason: Anxiety) pilocarpine HCl 5 mg tablet 5 mg PO BID PRN (Reason: Dry Mouth) Myrbetriq 50 mg tablet extended release 24 hr 50 mg PO DAILY montelukast 10 mg tablet 10 mg PO QPM cetirizine 10 mg tablet 10 mg PO DAILY@1500 acetaminophen 500 mg tablet 1,000 mg PO Q8H PRN (Reason: pain) meclizine 25 mg tablet 25 mg PO TID PRN (Reason: dizziness) loratadine 10 mg tablet 10 mg PO DAILY omeprazole 20 mg capsule,delayed release(DR/EC) 20 mg PO DAILY fexofenadine 180 mg tablet 180 mg PO DAILY budesonide-formoterol [Symbicort] 80-4.5 mcg/actuation HFA aerosol inhaler 1 puff inhalation BID PRN (Reason: wheezing) pregabalin 200 mg capsule 200 mg PO BID (DME) DAMON Elbow Brace Misc See Rx Instructions .Route Qty: 1 0RF Rx Instructions: as directed hydroxychloroquine 200 mg tablet 200 mg PO BID Qty: 180 1RF hydrochlorothiazide 25 mg tablet 25 mg PO DAILY Ajovy Autoinjector 225 mg/1.5 mL auto-injector 225 mg subcut QMONTH Rx Instructions: NEXT DOSE MAY 15, 2024 sodium fluoride-pot nitrate 1.1-5 % paste 1 appl PO BID albuterol sulfate 2.5 mg /3 mL (0.083 %) solution for nebulization 2.5 mg inhalation Q6H PRN (Reason: wheezing) albuterol sulfate [Ventolin HFA] 90 mcg/actuation HFA aerosol inhaler 2 puff inhalation Q6H PRN (Reason: Wheezing) Rx Instructions: As needed losartan 50 mg tablet 50 mg PO DAILY clobetasol 0.05 % ointment 1 appl topical BID hydrocortisone 2.5 % ointment 1 appl topical DAILY PRN (Reason: Rash) diclofenac sodium 1 % gel 1 g topical QID PRN (Reason: Pain) ciclopirox 1 % shampoo 1 ea topical Q7D PRN (Reason: Rash) (DME) CPAP Device See Rx Instructions .Route Rx Instructions: As directed rizatriptan 10 mg tablet 10 mg PO DAILY PRN (Reason: Migraine Headache) ondansetron HCl 8 mg tablet 8 mg PO TID PRN (Reason: Nausea) Discharge Orders: Discharge Order (Routine); Ordered 04/27/24 Ordered By: Sulema Wells Diet: Advance to usual diet Activity on Discharge: As tolerated Stand Alone Forms: Patient Portal Discharge page Print Language: British Care Plan Goals: Transfer to [facility] for cardiac catheterization Health Concerns: NSTEMI Plan of Treatment: Transferred to [facility] for cardiac catheterization secondary to NSTEMI. Transfer on heparin drip. Started on aspirin, statin and beta-brianna during inpatient hospitalization. Assessment: See discharge summary
== END 2024-04-27 13:45 | disposition short-term general hospital (02) | DRG 190 ==
LOC: HO.ED 04-27 01:49 → HO.EDOVER 04-27 03:11 → HO.IMC 04-27 07:40
PROVIDERS: Admitting Provider Internal Medicine; Emergency Provider Internal Medicine; PCP Student in an Organized Health Care Education/Training Program; Visit Provider Nurse Practitioner Acute Care
DX: I21.4 Non-ST elevation (NSTEMI) myocardial infarction (principal); M32.9 Systemic lupus erythematosus, unspecified; E66.9 Obesity, unspecified; F17.210 Nicotine dependence, cigarettes, uncomplicated; I10 Essential (primary) hypertension; K21.9 Gastro-esophageal reflux disease without esophagitis; Z68.37 Body mass index [BMI] 37.0-37.9, adult; G47.33 Obstructive sleep apnea (adult) (pediatric); F41.9 Anxiety disorder, unspecified; F32.A Depression, unspecified; J45.909 Unspecified asthma, uncomplicated; M35.00 Sjogren syndrome, unspecified; Z86.718 Personal history of other venous thrombosis and embolism; Z71.6 Tobacco abuse counseling; Z79.82 Long term (current) use of aspirin; Z79.899 Other long term (current) drug therapy
CPT/HCPCS: 36415; 71045; 80053; 80061; 83036; 84484; 85025; 85027; 85379; 85610; 85730; 86140; 93005; 93306; 99285; J1644; Q9957

== ENCOUNTER → 2024-04-26 23:31 | Outpatient (BNV) | payer OTHER, SELFPAY | PROVIDERS: Admitting Provider Internal Medicine; Emergency Provider Internal Medicine; PCP Student in an Organized Health Care Education/Training Program; Visit Provider Internal Medicine Cardiovascular Disease | DX: R94.31 Abnormal electrocardiogram [ECG] [EKG] (principal) | CPT/HCPCS: 93010 ==

== ENCOUNTER → 2024-04-27 00:51 | Outpatient (BNV) | payer OTHER, SELFPAY | PROVIDERS: Admitting Provider Internal Medicine; Emergency Provider Internal Medicine; PCP Student in an Organized Health Care Education/Training Program; Visit Provider Internal Medicine Cardiovascular Disease | DX: I24.9 Acute ischemic heart disease, unspecified (principal); R94.31 Abnormal electrocardiogram [ECG] [EKG] | CPT/HCPCS: 93010; 93306 ==

== ENCOUNTER → 2024-04-27 03:03 | Outpatient (BNV) | payer OTHER, SELFPAY | PROVIDERS: Admitting Provider Internal Medicine; Emergency Provider Internal Medicine; PCP Student in an Organized Health Care Education/Training Program; Visit Provider Internal Medicine Cardiovascular Disease | DX: I21.4 Non-ST elevation (NSTEMI) myocardial infarction (principal) | CPT/HCPCS: 99222 ==

== ENCOUNTER → 2024-04-27 03:03 | Outpatient (BNV) | payer OTHER, SELFPAY | PROVIDERS: Admitting Provider Internal Medicine; Emergency Provider Internal Medicine; PCP Student in an Organized Health Care Education/Training Program; Visit Provider Internal Medicine | DX: I21.4 Non-ST elevation (NSTEMI) myocardial infarction (principal) | CPT/HCPCS: 99235; 99499 ==

== ENCOUNTER → 2024-04-28 23:59 | Outpatient (BNV) | payer OTHER, SELFPAY | PROVIDERS: PCP Student in an Organized Health Care Education/Training Program; Visit Provider Internal Medicine Cardiovascular Disease | DX: I21.4 Non-ST elevation (NSTEMI) myocardial infarction (principal); I25.10 Atherosclerotic heart disease of native coronary artery without angina pectoris | CPT/HCPCS: 92928; 92978; 93458; 93571; 99152 ==

== ENCOUNTER 2024-05-12 12:42 | Outpatient (AMB) | payer OTHER, SELFPAY ==
--- NOTE | 2024-05-12 13:30 | MHC.OFFVIS ---
Vital Signs 05/12/24 13:31 Height 5 ft 6 in Weight 224 lb 13.944 oz BMI 36.3 BP 111/72 Blood Pressure Location Lt brachial Position Sitting Pulse 88 Pulse Source Pulse Oximeter Intake Visit Reasons: FOLLOW UP AFTER CATH Allergies No Known Allergies Allergy (Verified 05/12/24 15:12) Medication List - Last Reconciled 05/12/24 by Aleksandra Rubio NP acetaminophen 1,000 mg PO Q8H PRN albuterol sulfate 2.5 mg inhalation Q6H PRN albuterol sulfate 90 mcg/actuation (Ventolin HFA) 2 puffs inhalation Q6H PRN amitriptyline 10 mg PO BEDTIME arm brace (DAMON Elbow Brace) as directed aspirin 81 mg PO DAILY atorvastatin 80 mg PO DAILY betamethasone dipropionate 0.05% 1 appl topical BID PRN budesonide-formoterol 80-4.5 mcg/actuation (Symbicort) 1 puff inhalation BID PRN cetirizine 10 mg PO DAILY@1500 ciclopirox 1% 1 ea topical Q7D PRN clobetasol 0.05% 1 appl topical BID clonazepam 1 mg PO TID PRN clonidine HCl 0.1 mg PO 3XD PRN CPAP As directed cyanocobalamin (vitamin B-12) (Vitamin B-12) 1,000 mcg PO DAILY cyclobenzaprine 5 - 10 mg (1 - 2 x 5 mg) PO BEDTIME PRN diclofenac sodium 1% 1 g topical QID PRN duloxetine 30 mg PO DAILY famotidine 20 mg PO BID fexofenadine 180 mg PO DAILY fluocinonide 0.05% 1 appl topical BID PRN fremanezumab-vfrm (Ajovy) 225 mg subcut QMONTH hydrochlorothiazide 25 mg PO DAILY hydrocortisone 2.5% 1 appl topical DAILY PRN hydroxychloroquine 200 mg PO BID loratadine 10 mg PO DAILY losartan 50 mg PO DAILY meclizine 25 mg PO TID PRN metoprolol succinate ER (Toprol XL) 12.5 mg (1/2 x 25 mg) PO DAILY mirabegron ER (Myrbetriq) 50 mg PO DAILY montelukast 10 mg PO QPM naratriptan 2.5 mg PO DAILY PRN neomycin-polymyxin B-dexameth 3.5mg/mL-10,000 unit/mL-0.1 % 1 drp ophthalmic (eye) QID omeprazole 20 mg PO DAILY ondansetron HCl 8 mg PO TID PRN pantoprazole 20 mg PO DAILY pilocarpine HCl 5 mg PO BID PRN pregabalin 200 mg PO BID riboflavin (vitamin B2) 400 mg PO DAILY risperidone 2 mg PO BEDTIME rizatriptan 10 mg PO DAILY PRN sodium fluoride-pot nitrate 1.1-5 % 1 appl PO BID ticagrelor (Brilinta) 90 mg PO BID HPI Comments Details: 49-year-old female presents today for a new patient visit. She had a NSTEMI on 04/26/2024 and was transferred to [facility] [place] cardiac catheterization. She has a medical history of Lupus, Sjorgrens, fibromyalgia, asthma, and AIRAM. It is also noted she had a femoral DVT in 2018. She reports she has been feel better slowly. She feels tired and naps often. Denies any current chest pains, shortness of breath, fever, chills, pain or tenderness at access site. She is going for daily walks when it is coolest during the day and has gotten up to 3 blocks. She is trying to quit smoking [facility] Medical History (Updated 05/13/24 @ 08:38 by Aleksandra Rubio NP) Smoker Dvt femoral (deep venous thrombosis) Gout GERD (gastroesophageal reflux disease) Vertigo Asthma Migraine Anxiety and depression Fibromyalgia Neuropathy H/O Sjogren's disease Discoid lupus Lupus Surgical History (Updated 05/13/24 @ 08:38 by Aleksandra Rubio NP) S/P cardiac catheterization Hx of hysterectomy Hx of thumb surgery Hx of knee surgery Family History Other Arthritis Lupus Social History Household Members: Family Housing: Apartment Do you presently have visiting nurse or other home services: No Alcohol intake: former Patient Tobacco Use Status: Current everyday Tobacco user Tobacco use type: Cigarette Cigarette Packs Per Day: 0.5 Cigarettes Per Day: 10.0 service: No Current occupational status: unemployed Review of Systems Const Denies weakness ENT Denies dizziness Card Denies chest pain, Denies chest pain with activity, Denies syncope, Denies rapid heart rate, Denies pedal edema, Denies edema, Denies leg edema, Denies lightheadedness, Denies palpitations, Denies dyspnea, Denies dyspnea on exertion and Denies orthopnea Resp Denies cough, Denies dyspnea and Denies dyspnea on exertion GI Denies hematochezia and Denies change in stool character Musc Denies abnormal gait, Denies muscle cramps, Denies muscle weakness, Denies numbness, Denies radiating pain into limb and Denies tingling Neuro Denies abnormal gait, Denies dizziness, Denies syncope, Denies numbness, Denies tingling and Denies weakness Endo Denies palpitations Physical Exam Vital Signs: Last Vital Signs Pulse 88 05/12/24 13:31 BP 111/72 05/12/24 13:31 BMI result Body Mass Index 36.3 Assessment & Plan Assessment & Plan (1) S/P cardiac catheterization: Comment: Cath on 04/28/[address] Murphy Cardiac Arteries and Lesion Findings LMCA: Normal. LAD: Lesion in Mid LAD: 60% stenosis .Culprit lesion. Lesion in Mid LAD: 60% stenosis reduced to 0%. LCx: Normal. RCA: Mild luminal irregularities (<30%). Interventional Summary iFR and FFR were performed which were both in the normal range. Given the fact that an acute coronary syndrome physiology can be inconclusive we decided to perform OCT. This showed heavy plaque burden with significant stenosis in the mid LAD. Presentation with acute coronary syndrome we decided to treat the LAD. Successful drug-eluting stent with 3 mm x 24 mm Synergy as described. Code(s): Z98.890 - Other specified postprocedural states Category: Surgical Plan: JOHN PAUL to mid LAD. Aspirin 81mg daily indefinitely, Brilinta 90mg BID for at minimum 12 months. Will check lipid panel in 2 months since patient is on atorvastatin 80mg now. Last LDL at [facility] on 04/28/24 was 84. Goal under 70. Heart healthy diet reviewed. Quit smoking. Patient agreed to cardiac rehab. On metoprolol 12.5mg. Reviewed signs of bleeding. (2) Smoker: Code(s): F17.200 - Nicotine dependence, unspecified, uncomplicated Category: Social Hx Plan: She is currently cutting back - advised complete cessation. Patient is motivated to quit. Orders: Orders Cardiac Rehab 05/12/24 Z98.890 - Other specified postprocedural states Basic Metabolic Panel 05/12/24 Z98.890 - Other specified postprocedural states Lipid Panel 05/12/24 Z98.890 - Other specified postprocedural states Coding Level of Care Code Est Pt Level 3 (38051) Diagnoses S/P cardiac catheterization Z98.890 Smoker F17.200
[2024-05-12 13:31] VITALS: BP 111/72; PULSE 88; BMI 36.3
== END 2024-05-12 14:23 | disposition home or self-care (01) ==
PROVIDERS: PCP Student in an Organized Health Care Education/Training Program; Visit Provider Nurse Practitioner
DX: Z98.890 Other specified postprocedural states (principal); F17.200 Nicotine dependence, unspecified, uncomplicated
CPT/HCPCS: 99213

== ENCOUNTER → 2024-05-12 12:42 | Outpatient (BNVA) | payer OTHER, SELFPAY | PROVIDERS: PCP Student in an Organized Health Care Education/Training Program; Visit Provider Nurse Practitioner | DX: I21.4 Non-ST elevation (NSTEMI) myocardial infarction (principal); F17.210 Nicotine dependence, cigarettes, uncomplicated; Z98.890 Other specified postprocedural states; Z79.82 Long term (current) use of aspirin; Z79.899 Other long term (current) drug therapy | CPT/HCPCS: 99212 ==

== ENCOUNTER 2024-05-25 09:53 | Outpatient (REF) | payer OTHER, SELFPAY ==
[2024-05-25 11:18] LABS: Anion Gap 14 (12-20); Blood Urea Nitrogen 10 mg/dL (9-16); Calcium 9.8 mg/dL (8.4-10.2); Carbon Dioxide 22 mmol/L (22-29); Chloride 105 mmol/L (96-108); Cholesterol 115 mg/dL (<200); Estimated Glomerular Filt Rate > 60; Glucose Random 86 mg/dL (60-115); HDL Cholesterol 31 mg/dL (>40); LDL Cholesterol Calculated 40 mg/dL (<100); Sodium 137 mmol/L (135-145); Triglycerides 222 mg/dL (<150)
== END 2024-05-25 09:54 | disposition home or self-care (01) ==
LOC: HO.LAB 09:53
PROVIDERS: Nurse Practitioner; PCP Student in an Organized Health Care Education/Training Program; Visit Provider Student in an Organized Health Care Education/Training Program
DX: Z98.890 Other specified postprocedural states (principal)
CPT/HCPCS: 36415; 80048; 80061

== ENCOUNTER 2024-06-04 12:52 | Outpatient (AMB) | payer OTHER, SELFPAY ==
--- NOTE | 2024-06-04 13:01 | MHC.OFFVIS ---
Vital Signs 06/04/24 13:06 Height 5 ft 6 in Weight 226 lb BMI 36.5 BP 135/79 Blood Pressure Location Lt brachial Position Sitting Pulse 76 Pulse Source Pulse Oximeter Pulse Oximetry (%) 98 Oxygen Delivery Method Room Air Intake Visit Reasons: Sprint removal Intake Note: Pain today 8/10 [employer] Specialist Required: No Accompanied by: Self / Same As Patient Allergies No Known Allergies Allergy (Verified 06/04/24 13:07) HPI Comments Details: Patient presents back to the office today for right saphenous nerve Sprint removal Reports pain today 8/10, right knee. She had been scheduled for gel injection to the right knee but prior to this being completed she had NSTEMI and was started on Brilinta. Therefore the gel injection was canceled. She endorses resolution of pain to her right hip/GTB. Now able to sleep on her right side where she has not been able to do that in a long time. States Sprint did not help with her right knee pain however. Prior: Marilyn presents back to the office today for follow-up, one-week status post right saphenous sprint peripheral nerve stimulator placement Pain today is rated as a 8/10. Patient states her pain was feeling better until 3 days ago. She then had been walking around a lot and went to her son's where she climbed a lot of stairs. She says prior to this she was only to climb maybe 3 stairs so after being at her son's the pain became worse. She has been applying ice. In contact with the Sprint delivery representative. Stimulation currently set at 63 and tolerating well. Prior: Patient presents the office today 6 days status post right diagnostic saphenous nerve block She reports 70% pain relief with improvement in functional mobility for 2 days after the procedure. She does endorse continued feeling of [id number] rubbing. She denies any untoward effects of the procedure. Prior: Marilyn is a very pleasant 48-year-old female who presents the office today for evaluation management of her chronic right knee pain. Patient reports she has been suffering with this pain since 2002. 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 They also scraped the bone and she was told that she has arthritis. Pain worse with range of motion, walking, standing She has tried [id number] medications, anti-inflammatory medications, muscle relaxers, steroid injections and gel injections without improvement of her symptoms. Patient completed physical therapy last year without improvement of her symptoms. She has also tried ice, heat and bracing. In terms of muscle damage condition is described as aching, spasming, hot, burning, tingling, pins and needles. Reports the worst pain is a burning sensation behind her kneecap. Pain is constant throughout the day, worse in the evening in the night. Rated today as 8/10. Pain is negatively impacting patient's enjoyment of life, general activity, mood, normal work, recreational activities, sleep and walking. Patient also has a history of lupus, polyarthralgia, osteoarthritis of both knees. She is on long-term use of Plaquenil. Currently followed by Rheumatology at [facility]. [facility] Medical History (Updated 05/13/24 @ 08:38 by Aleksandra Rubio NP) Smoker Dvt femoral (deep venous thrombosis) Gout GERD (gastroesophageal reflux disease) Vertigo Asthma Migraine Anxiety and depression Fibromyalgia Neuropathy H/O Sjogren's disease Discoid lupus Lupus Surgical History (Updated 05/13/24 @ 08:38 by Aleksandra Rubio NP) S/P cardiac catheterization Hx of hysterectomy Hx of thumb surgery Hx of knee surgery Family History Other Arthritis Lupus Social History Household Members: Family Housing: Apartment Do you presently have visiting nurse or other home services: No Alcohol intake: former Patient Tobacco Use Status: Current everyday Tobacco user Tobacco use type: Cigarette Cigarette Packs Per Day: 0.5 Cigarettes Per Day: 10.0 service: No Current occupational status: unemployed Review of Systems Const All systems reviewed & are unremarkable except as noted in HPI and below Physical Exam Vital Signs: Last Vital Signs Pulse 76 06/04/24 13:06 BP 135/79 06/04/24 13:06 Pulse Ox 98 06/04/24 13:06 Oxygen Delivery Method Room Air 06/04/24 13:06 BMI result Body Mass Index 36.5 General: awake, alert, oriented. Answers questions appropriately. Fully engaged in examination. Skin: warm, dry, intact HEENT: Normocephalic. Hearing intact. Cardiac: External chest normal in appearance. Respiratory: No cough, audible wheezing or stridor. Abdomen: without gross distension. MS: Saphenous nerve Sprint removal: Dressing removed, Site dry, clean, intact. Area cleansed with chloraprep, lead removed with intact tip. Area cleansed again with chloraprep, bacitracin dressing with tegaderm applied. Patient tolerated removal well. Neurological: Oriented to person, place, time and situation. Thought process intact. Ambulates with the use of a cane Psychiatric: Appropriate mood and affect. Good judgment and insight. Results Reviewed Results Reviewed: Per ortho note dated 01/22/2024 from Lee Acosta, Xrays were obtained in the office today and personally reviewed by me of the right knee show moderate PF oa Assessment & Plan Assessment & Plan (1) Osteoarthritis of right knee: Code(s): M17.11 - Unilateral primary osteoarthritis, right knee Category: Medical Qualifiers: Osteoarthritis type: primary Qualified Code(s): M17.11 - Unilateral primary osteoarthritis, right knee (2) Right knee pain: Code(s): M25.561 - Pain in right knee Category: Medical Plan Sprint device removed. Patient tolerated well. Patient awaiting gel one injection. She must be able to hold Brilinta prior to this injection. She was told by cardiology this will take 1 year. She has exhausted conservative therapy including PT, [id number]-[id number] medications, anti-inflammatory medications, steroid injections and peripheral nerve stimulator. All questions and concerns have been answered and patient agrees with the plan. Patient will call the office to schedule gel 1 injection once cleared by Cardiology to hold her Brilinta. Coding Level of Care Code Est Pt Level 3 (77584) Diagnoses Primary osteoarthritis of right knee M17.11 Osteoarthritis type: primary Right knee pain M25.561
[2024-06-04 13:06] VITALS: BP 135/79; PULSE 76; O2SAT 98; BMI 36.5
== END 2024-06-04 13:15 | disposition home or self-care (01) ==
PROVIDERS: PCP Student in an Organized Health Care Education/Training Program; Visit Provider Registered Nurse Emergency
DX: M17.11 Unilateral primary osteoarthritis, right knee (principal); M25.561 Pain in right knee
CPT/HCPCS: 99213

== ENCOUNTER → 2024-06-04 12:52 | Outpatient (BNVA) | payer OTHER, SELFPAY | PROVIDERS: PCP Student in an Organized Health Care Education/Training Program; Visit Provider Registered Nurse Emergency | DX: M17.11 Unilateral primary osteoarthritis, right knee (principal); M25.561 Pain in right knee | CPT/HCPCS: 99212 ==

== ENCOUNTER 2024-06-05 08:49 | Outpatient (AMB) | payer OTHER, SELFPAY ==
--- NOTE | 2024-06-05 08:57 | A.OFFVIS_ITS ---
Vital Signs 06/05/24 09:01 Height 5 ft 6 in Weight 230 lb 13.184 oz BMI 37.3 BP 132/74 Blood Pressure Location Rt brachial Position Sitting Pulse 85 Pulse Source Pulse Oximeter Pulse Oximetry (%) 99 Oxygen Delivery Method Room Air Intake Visit Reasons: SLE/CM Intake Note: Patient presents for SLE. Allergies No Known Allergies Allergy (Verified 06/05/24 09:00) HPI Comments Details: 49-year-old female with SLE returns for follow-up. She had an acute coronary syndrome last month and had a stent placed. She states that she still is recovering from it. She will do cardiac rehab soon. Today she states that feels the rashes on her face are coming back. She is having some right shoulder pain. Some generalized fatigue and body aches. Initial history: This is a 48-year-old female with a past medical history of SLE who presents as a new patient. Patient used to follow-up with Dr. Pineda. She was unable to get an appointment with dr. Marquez at his new practice. She states that she was diagnosed with SLE around 17 years ago when she developed a butterfly rash and diffuse joint pain. She stated that she was treated with prednisone consistently at 5 mg daily for about 8 years. She was also started on hydroxychloroquine. She has been on hydroxychloroquine since her diagnosis. She states that she took methotrexate for 2 months about 7 years ago and according to patient she lost her smell and taste afterwards. He was told that this was likely a side effect of methotrexate. It did not recover when methotrexate was discontinued. Five years ago she was on Benlysta infusions for about 8 months. She stated that was helping reduce the frequency of her flare-ups, but eventually it became ineffective. Per patient 5 years ago patient presented to the hospital with right lower extremity DVT. According to patient she was on blood thinners for some time. States that she has been wearing compression stockings for about 10 years. Patient was recently evaluated by a photo tube assembler for respiratory bronchiolitis versus extrinsic allergic alveolitis and was started on prednisone 40 mg daily a month ago with improvement of her joint pain. [facility] Medical History Smoker Dvt femoral (deep venous thrombosis) Gout GERD (gastroesophageal reflux disease) Vertigo Asthma Migraine Anxiety and depression Fibromyalgia Neuropathy H/O Sjogren's disease Discoid lupus Lupus Surgical History S/P cardiac catheterization Hx of hysterectomy Hx of thumb surgery Hx of knee surgery Family History Other Arthritis Lupus Social History Household Members: Family Housing: Apartment Do you presently have visiting nurse or other home services: No Alcohol intake: former Patient Tobacco Use Status: Current everyday Tobacco user Tobacco use type: Cigarette Cigarette Packs Per Day: 0.5 Cigarettes Per Day: 10.0 service: No Current occupational status: unemployed Female Reproductive History Menstrual Total pregnancies: 4 Number of Living Children: 4 Review of Systems Musc Reports back pain and Reports arthralgias Skin/Breast Reports rash Physical Exam Vital Signs: Last Vital Signs Pulse 85 06/05/24 09:01 BP 132/74 06/05/24 09:01 Pulse Ox 99 06/05/24 09:01 Oxygen Delivery Method Room Air 06/05/24 09:01 BMI result Body Mass Index 37.3 Const General: cooperative, healthy appearing and comfortable Nutritional Appearance: obese morbidly obese Orientation/consciousness: patient oriented x3 Limitations: ambulation with cane HEENT Head: Yes normocephalic and Yes atraumatic Resp Effort & Inspection: normal respiratory effort and able to speak in complete sentences Auscultation: clear to auscultation bilaterally Cardio Rate: regular rate Skin Other: Hypopigmented and hyperpigmented rashes on face. Today she has an active malar rash, warmth to touch Neuro General: patient oriented x3 Extrem Other: Positive rotator cuff and infraspinatus test on the right MCP squeeze test positive on the left few fibromyalgia tender points right knee pain with any range of motion. 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 She remains on hydroxychloroquine 20 mg Twice daily. Patient had acute coronary syndrome last month and had a stent placed. On exam she has a malar rash, synovitis affecting left hand. Inflammatory markers remain elevated She continues to have active SLE. We will need to add DMARDs At this time, patient could not tolerate methotrexate, azathioprine would be contraindicated due to her transaminitis. Benlysta lost effectiveness. We discussed risks and benefits of Saphnelo infusions. Patient agreed to proceed. Will start prior authorization for Saphnelo. Continue hydroxychloroquine 200 mg Twice daily I completed and signed the RSV tinted ask waiver form. Advised patient to have that lasts of her car tinted Labs before next visit in 3 months (2) Long-term use of hydroxychloroquine: Code(s): Z79.899 - Other ocean transportation intermediary (current) drug therapy Category: Medical Plan: Patient follows up regularly with Ophthalmology (3) Respiratory bronchiolitis associated interstitial lung disease: Code(s): J84.115 - Respiratory bronchiolitis interstitial lung disease Category: Medical Plan: Received steroid cause bar pulmonary. Tapered off in October/2023 without recurrence of symptoms (4) Right rotator cuff tendonitis: Code(s): M75.81 - Other shoulder lesions, right shoulder Category: Medical Plan: I provided patient with a printout of home exercises. Plan I spent 45 minutes reviewing patient's chart, evaluating patient, ordering arvind gnostic workup, counseling patient and documenting in the chart Orders: Orders Anti DNA DS Antibody 3 Months M32.9 - Systemic lupus erythematosus, unspecified Complement C3 3 Months M32.9 - Systemic lupus erythematosus, unspecified C Reactive Protein 3 Months M32.9 - Systemic lupus erythematosus, unspecified Erythrocyte Sedimentation Rate 3 Months M32.9 - Systemic lupus erythematosus, unspecified Protein Creatinine Ratio, Ur 3 Months M32.9 - Systemic lupus erythematosus, unspecified Complement C4 3 Months M32.9 - Systemic lupus erythematosus, unspecified UA w Microscopic 3 Months M32.9 - Systemic lupus erythematosus, unspecified Complete Blood Count Auto Diff 3 Months M32.9 - Systemic lupus erythematosus, unspecified Comprehensive Met. Panel 3 Months M32.9 - Systemic lupus erythematosus, unspecified Coding Level of Care Code Est Pt Level 5 (27177) Complex EM visit Add On G2211 Diagnoses Lupus M32.9 Long-term use of hydroxychloroquine Z79.899 Respiratory bronchiolitis associated interstitial lung disease J84.115 Right rotator cuff tendonitis M75.81
[2024-06-05 09:01] VITALS: BP 132/74; PULSE 85; O2SAT 99; BMI 37.3
== END 2024-06-05 10:02 | disposition home or self-care (01) ==
PROVIDERS: PCP Student in an Organized Health Care Education/Training Program; Visit Provider Student in an Organized Health Care Education/Training Program
DX: M32.9 Systemic lupus erythematosus, unspecified (principal); Z79.899 Other long term (current) drug therapy; J84.115 Respiratory bronchiolitis interstitial lung disease; M75.81 Other shoulder lesions, right shoulder
CPT/HCPCS: 99215; G2211

== ENCOUNTER → 2024-06-05 08:49 | Outpatient (BNVA) | payer OTHER, SELFPAY | PROVIDERS: PCP Student in an Organized Health Care Education/Training Program; Visit Provider Student in an Organized Health Care Education/Training Program | DX: M32.9 Systemic lupus erythematosus, unspecified (principal); M75.81 Other shoulder lesions, right shoulder; J84.115 Respiratory bronchiolitis interstitial lung disease; Z79.899 Other long term (current) drug therapy | CPT/HCPCS: 99212 ==

== ENCOUNTER 2024-07-01 12:44 | Outpatient (REF) | payer OTHER, SELFPAY ==
[2024-07-01 14:14] LABS: B Type Natriuretic Peptide 16 pg/mL (<100)
[2024-07-01 14:16] LABS: Anion Gap 10 (12-20); Blood Urea Nitrogen 9 mg/dL (9-16); Calcium 9.3 mg/dL (8.4-10.2); Carbon Dioxide 22 mmol/L (22-29); Chloride 107 mmol/L (96-108); Estimated Glomerular Filt Rate > 60; Glucose Random 113 mg/dL (60-115); Sodium 135 mmol/L (135-145)
== END 2024-07-01 12:45 | disposition home or self-care (01) ==
LOC: HO.LAB 12:44
PROVIDERS: PCP Student in an Organized Health Care Education/Training Program; Visit Provider Internal Medicine Cardiovascular Disease
DX: M79.89 Other specified soft tissue disorders (principal)
CPT/HCPCS: 36415; 80048; 83880

== ENCOUNTER 2024-07-07 13:39 | Outpatient (REF) | payer OTHER, SELFPAY ==
[2024-07-07 14:12] LABS: MANUAL DIFF FLAG NO
[2024-07-07 14:24] LABS: Basophils Absolute Auto 0.1 X10*3/uL (0.0-0.2); Basophils Percent Auto 0.6 % (0-2); Eosinophils Absolute Auto 0.3 X10*3/uL (0.0-0.4); Eosinophils Percent Auto 3.5 % (0-4); Hematocrit 34.3 % (37.0-47.0); Hemoglobin 11.5 g/dl (12.0-16.0); Imm Gran Abs Auto 0.03 X10*3/uL (0.00-0.03); Imm Gran Pct Auto 0.4 % (0.0-0.4); Lymphocytes Percent Auto 24.7 % (20-40); Mean Corpuscular HGB Conc 33.5 g/dl (31.0-35.0); Mean Corpuscular Hemoglobin 29.9 pg (27.0-33.0); Mean Corpuscular Volume 89.1 fL (80.0-98.0); Mean Platelet Volume 12.2 fL (9.4-12.3); Monocytes Absolute Auto 0.4 X10*3/uL (0.1-1.2); Monocytes Percent Auto 4.9 % (2-11); Neutrophils Absolute Auto 5.3 x10*3/uL (2.0-8.3); Neutrophils Percent Auto 65.9 % (45-73); Platelet Count 294 X10*3/uL (160-400); Red Blood Count 3.85 X10*6/uL (4.20-5.50); Red Cell Distribution Width 13.6 % (11.0-16.0)
[2024-07-07 15:05] LABS: Erythrocyte Sedimentation Rate 29 MM/HR (0-20)
[2024-07-07 15:06] LABS: Alanine Aminotransferase 23 U/L (0-31); Albumin Level 3.9 g/dL (3.5-5.0); Alkaline Phosphatase 66 U/L (39-117); Anion Gap 12 (12-20); Aspartate Amino Transferase 19 U/L (5-31); Bilirubin Total 0.3 mg/dL (0.0-1.0); Blood Urea Nitrogen 11 mg/dL (9-16); C Reactive Protein 1.52 mg/dL (< or = 0.50); Calcium 9.3 mg/dL (8.4-10.2); Carbon Dioxide 27 mmol/L (22-29); Chloride 102 mmol/L (96-108); Estimated Glomerular Filt Rate > 60; Glucose Random 87 mg/dL (60-115); Potassium 3.9 mmol/L (3.3-5.1); Sodium 137 mmol/L (135-145); Total Protein 7.8 g/dL (6.5-8.0)
[2024-07-08 14:34] LABS: Complement C3 74 mg/dL (83-193)
[2024-07-08 15:19] LABS: Anti DNA DS Antibody 3 IU/mL
== END 2024-07-07 13:40 | disposition home or self-care (01) ==
LOC: HO.LAB 13:39
PROVIDERS: Visit Provider Student in an Organized Health Care Education/Training Program
DX: M32.9 Systemic lupus erythematosus, unspecified (principal)
CPT/HCPCS: 36415; 80053; 85025; 85652; 86140; 86160; 86225

== ENCOUNTER 2024-07-09 12:07 | Outpatient (REF) | payer OTHER, SELFPAY ==
[2024-07-09 12:18] LABS: Appearance Urine Clear; Color Urine Yellow; Glucose Urine UA Negative (Negative); Leukocyte Esterase Urine Negative (Negative); Nitrite Urine Negative (Negative); PH 6.5 (5.0-9.0); Urine Blood Negative (Negative); Urine Ketones Negative (Negative); Urine Protein Negative (Neg-Trace)
[2024-07-09 12:21] LABS: Bacteria Urine Trace (None Seen); Hyaline Casts Urine 0-2 /LPF (0-2); RBC Urine 0-2 /HPF (0-2); Squamous Epithelial Cell Urine 0-2 /HPF (0-2); WBC Urine 0-5 /HPF (0-5)
[2024-07-09 12:52] LABS: Creatinine Urine 58.72 mg/dL; Total Protein Urine Random < 7 mg/dL (<12)
== END 2024-07-09 12:08 | disposition home or self-care (01) ==
LOC: HO.LNP 12:07
PROVIDERS: Visit Provider Student in an Organized Health Care Education/Training Program
DX: M32.9 Systemic lupus erythematosus, unspecified (principal)
CPT/HCPCS: 81001; 82570; 84156

== ENCOUNTER 2024-07-12 10:45 | Outpatient (REF) | payer OTHER, SELFPAY ==
--- NOTE | ~2024-07-12 | MR_ITS ---
EXAMINATION: MR KNEE WITHOUT CONTRAST, RIGHT CLINICAL INFORMATION: Right knee pain and swelling. Reduced range of motion. Internal derangement. COMPARISON: Most recent right knee radiographs dated 01/17/2024 and MRI dated 06/04/2019. TECHNIQUE: MRI of the knee without contrast was performed using routine sequences on a high-field scanner. FINDINGS: MENISCI: Medial Meniscus: Mild fraying of the posterior root insertion, slightly more prominent when compared to the MRI from 2019. No additional meniscal tear. Lateral Meniscus: Intact LIGAMENTS: Cruciate: Intact Collateral: Intact EXTENSOR MECHANISM: Superior patellar enthesophytes. Mild distal quadriceps and proximal patellar tendinosis. No tear. Normal patellofemoral alignment. ARTICULAR CARTILAGE/BONE: Patellofemoral Compartment: Superior medial trochlear articular cartilage partial-thickness loss. Findings are similar when compared to the prior examination. Medial Compartment: Mild articular cartilage signal heterogeneity with tiny marginal osteophytes, new when compared to the prior examination. Lateral Compartment: Intact articular cartilage. JOINT FLUID AND BURSAE: Small joint effusion and trace Vila's cyst. MUSCLE/TENDONS: Mild thickening and heterogeneity of the distal semimembranosus tendon, consistent with mild tendinosis. No tear or retraction. MR/MR knee RT wo con IMPRESSION: 1. Mild fraying of the medial meniscus posterior root, slightly more prominent when compared to the MRI from 2019. No additional meniscal tear. 2. Mild distal quadriceps and proximal patellar tendinosis. 3. Minimal patellofemoral and medial compartment arthrosis, new when compared to the prior examination. Small joint effusion and trace Vila's cyst. 4. Mild distal semimembranosus tendinosis. Electronically signed by: Adan Duke MD 07/14/2024 02:54 PM EDT
== END 2024-07-12 10:46 | disposition home or self-care (01) ==
LOC: HO.MRI 10:45
PROVIDERS: PCP Student in an Organized Health Care Education/Training Program; Visit Provider Student in an Organized Health Care Education/Training Program
DX: M23.91 Unspecified internal derangement of right knee (principal)
CPT/HCPCS: 73721

== ENCOUNTER 2024-08-05 12:04 | Outpatient (AMB) | payer OTHER, SELFPAY ==
--- NOTE | 2024-08-05 12:33 | MHC.OFFVIS ---
Vital Signs 08/05/24 12:38 Height 5 ft 6 in Weight 230 lb BMI 37.1 Intake Visit Reasons: OV- RT knee pain Intake Note: Marilyn a 49 year old female who presents today for a follow up of right knee pain, last injection 01/22/24. Patient reports injection provided her with relief for a few months. She was seen by pain management where a nerve stimulator was placed however this only helped with her hip bursitis. She recently has a hear attack and a cardiac stent was placed in April. Patient has a recent MRI that her PCP ordered and would like to discusss her results. Currently she has constant pain that increases with stair use. States no strength in her knee. Her knee gives out causing a fall in February. She uses a cane and walker for ambulation. No relief with tylenol. Allergies No Known Allergies Allergy (Verified 08/05/24 12:42) Medication List - Last Reconciled 08/05/24 by Lee Acosta PA-C acetaminophen 1,000 mg PO Q8H PRN albuterol sulfate 2.5 mg inhalation Q6H PRN albuterol sulfate 90 mcg/actuation (Ventolin HFA) 2 puffs inhalation Q6H PRN amitriptyline 10 mg PO BEDTIME amoxicillin 500 mg PO TID arm brace (DAMON Elbow Brace) as directed aspirin 81 mg PO DAILY atorvastatin 80 mg PO DAILY betamethasone dipropionate 0.05% 1 appl topical BID PRN budesonide-formoterol 80-4.5 mcg/actuation (Symbicort) 1 puff inhalation BID PRN cetirizine 10 mg PO DAILY@1500 ciclopirox 1% 1 ea topical Q7D PRN clobetasol 0.05% 1 appl topical BID clonazepam 1 mg PO TID PRN clonidine HCl 0.1 mg PO 3XD PRN CPAP As directed cyanocobalamin (vitamin B-12) (Vitamin B-12) 1,000 mcg PO DAILY cyclobenzaprine 5 - 10 mg (1 - 2 x 5 mg) PO BEDTIME PRN diclofenac sodium 1% 1 g topical QID PRN duloxetine 30 mg PO DAILY famotidine 20 mg PO BID fexofenadine 180 mg PO DAILY fluocinonide 0.05% 1 appl topical BID PRN fremanezumab-vfrm (Ajovy) 225 mg subcut QMONTH hydrochlorothiazide 25 mg PO DAILY hydrocortisone 2.5% 1 appl topical DAILY PRN hydroxychloroquine 200 mg PO BID loratadine 10 mg PO DAILY losartan 50 mg PO DAILY meclizine 25 mg PO TID PRN metoprolol succinate ER (Toprol XL) 12.5 mg (1/2 x 25 mg) PO DAILY mirabegron ER (Myrbetriq) 50 mg PO DAILY montelukast 10 mg PO QPM naratriptan 2.5 mg PO DAILY PRN neomycin-polymyxin B-dexameth 3.5mg/mL-10,000 unit/mL-0.1 % 1 drp ophthalmic (eye) QID nicotine 1 patch topical DAILY omeprazole 20 mg PO DAILY ondansetron HCl 8 mg PO TID PRN pantoprazole 20 mg PO DAILY pilocarpine HCl 5 mg PO BID PRN pregabalin 200 mg PO BID riboflavin (vitamin B2) 400 mg PO DAILY risperidone 2 mg PO BEDTIME rizatriptan 10 mg PO DAILY PRN sodium fluoride-pot nitrate 1.1-5 % 1 appl PO BID ticagrelor (Brilinta) 90 mg PO BID varicella-zoster gE-AS01B (PF) 50 mcg/0.5 mL (Shingrix (PF)) 50 mcg intramuscularly 2 doses (at 0 & 2 months) HPI HPI OV- RT knee pain: Details: 49-year-old female who returns to the office today for a follow-up of right knee pain. She reports she recently had a heart attack in April and a cardiac stent was placed which did not provide her any relief. She had her stent removed. She was seen by pain management where a nerve stimulator was placed however this did not provide her any relief and she had the stent removed. She was also seen by her PCP who ordered an MRI. She currently states she has weakness, swelling and constant pain in her knee that is aggravated with stair use. Her knee gives out and she mentioned she sustained a fall in February. She uses a walker for ambulation. She finds no relief with Tylenol. She had her last injection on 01/22/24 that provided her relief for a few months. She is prediabetic. [facility] Medical History Smoker Dvt femoral (deep venous thrombosis) Gout GERD (gastroesophageal reflux disease) Vertigo Asthma Migraine Anxiety and depression Fibromyalgia Neuropathy H/O Sjogren's disease Discoid lupus Lupus Surgical History S/P cardiac catheterization Hx of hysterectomy Hx of thumb surgery Hx of knee surgery Family History Other Arthritis Lupus Social History Household Members: Family Housing: Apartment Do you presently have visiting nurse or other home services: No Alcohol intake: former Patient Tobacco Use Status: Current everyday Tobacco user Tobacco use type: Cigarette Cigarette Packs Per Day: 0.5 Cigarettes Per Day: 10.0 service: No Current occupational status: unemployed Review of Systems Const All systems reviewed & are unremarkable except as noted in HPI and below Physical Exam Vital Signs: BMI result Body Mass Index 37.1 Office Procedures Joint Injection/Aspiration Joint Injection/Aspiration Primary Site: right knee Prep: site was prepped using aseptic technique, ethochloride spray was applied and injection warnings given Injected: 40 mg of, DepoMedrol, with 8 mL of, 1% plain lidocaine and in the joint Approach Used: anterolateral Procedure: The patient tolerated the procedure well and there was some relief with the local anesthesia Coding 35237 - Glenohumeral/Tronchanteric Bursa/Intraarticular Procedure code (CPT) selection complete Results Reviewed Results Reviewed: MRI Rt knee 07/12/24 IMPRESSION: 1. Mild fraying of the medial meniscus posterior root, slightly more prominent when compared to the MRI from 2019. No additional meniscal tear. 2. Mild distal quadriceps and proximal patellar tendinosis. 3. Minimal patellofemoral and medial compartment arthrosis, new when compared to the prior examination. Small joint effusion and trace Vila's cyst. 4. Mild distal semimembranosus tendinosis. Assessment & Plan Assessment & Plan (1) Osteoarthritis of right knee: Code(s): M17.11 - Unilateral primary osteoarthritis, right knee Category: Medical Qualifiers: Osteoarthritis type: primary Qualified Code(s): M17.11 - Unilateral primary osteoarthritis, right knee Plan We discussed options today, which include steroid injection. The patient did consent to move forward with the right knee injection, which was tolerated well. I recommended rest, ice, and elevation and OTC anti-inflammatories as needed for discomfort. We also discussed diabetes and the effect the steroid injection can have on their blood glucose levels; therefore, they will continue to monitor these very closely over the next 72 hours. If there are concerns, they should report to the ED immediately. Patient Instructions: Scribed for Lee Acosta PA-C, by Fidel Beard medical assistant dermatology, on 08/05/2024 at 12:45 PM EST.? I, Lee Acosta PA-C, have personally reviewed and agree with the information entered by the scribe. Coding Level of Care Code Est Pt Level 3 (15466) Complex EM visit Add On G2211 Diagnoses Primary osteoarthritis of right knee M17.11 Osteoarthritis type: primary CPT Codes Coding - Joint 7: 65740 - Glenohumeral/Tronchanteric Bursa/Intraarticular ([id number])
[2024-08-05 12:38] VITALS: BMI 37.1
== END 2024-08-05 13:29 | disposition home or self-care (01) ==
PROVIDERS: PCP Student in an Organized Health Care Education/Training Program; Visit Provider Physician Assistant
DX: M17.11 Unilateral primary osteoarthritis, right knee (principal)
CPT/HCPCS: 20610; 99213

== ENCOUNTER → 2024-08-05 12:04 | Outpatient (BNVA) | payer OTHER, SELFPAY | PROVIDERS: PCP Student in an Organized Health Care Education/Training Program; Visit Provider Physician Assistant | DX: M17.11 Unilateral primary osteoarthritis, right knee (principal) | CPT/HCPCS: 20610; 99212; J1010; J2003 ==

== ENCOUNTER 2024-08-13 13:37 | Outpatient (AMB) | payer OTHER, SELFPAY ==
[2024-08-13 13:52] VITALS: BP 108/58; PULSE 80; BMI 38.4
--- NOTE | 2024-08-13 13:52 | A.OFFVIS_ITS ---
Vital Signs 08/13/24 13:52 Height 5 ft 6 in Weight 238 lb 1.588 oz BMI 38.4 BP 108/58 L Blood Pressure Location Lt brachial Position Sitting Pulse 80 Pulse Source Pulse Oximeter Intake Visit Reasons: 3 mth f/up AC Allergies No Known Allergies Allergy (Verified 08/05/24 12:42) Medication List - Last Reconciled 08/13/24 by Petar Robles MD acetaminophen 1,000 mg PO Q8H PRN albuterol sulfate 2.5 mg inhalation Q6H PRN albuterol sulfate 90 mcg/actuation (Ventolin HFA) 2 puffs inhalation Q6H PRN amitriptyline 10 mg PO BEDTIME arm brace (DAMON Elbow Brace) as directed aspirin 81 mg PO DAILY atorvastatin 80 mg PO DAILY betamethasone dipropionate 0.05% 1 appl topical BID PRN budesonide-formoterol 80-4.5 mcg/actuation (Symbicort) 1 puff inhalation BID PRN cetirizine 10 mg PO DAILY@1500 ciclopirox 1% 1 ea topical Q7D PRN clobetasol 0.05% 1 appl topical BID clonazepam 1 mg PO TID PRN clonidine HCl 0.1 mg PO 3XD PRN CPAP As directed cyanocobalamin (vitamin B-12) (Vitamin B-12) 1,000 mcg PO DAILY cyclobenzaprine 5 - 10 mg (1 - 2 x 5 mg) PO BEDTIME PRN diclofenac sodium 1% 1 g topical QID PRN duloxetine 30 mg PO DAILY famotidine 20 mg PO BID fexofenadine 180 mg PO DAILY fluocinonide 0.05% 1 appl topical BID PRN fremanezumab-vfrm (Ajovy) 225 mg subcut QMONTH hydrochlorothiazide 25 mg PO DAILY hydrocortisone 2.5% 1 appl topical DAILY PRN hydroxychloroquine 200 mg PO BID loratadine 10 mg PO DAILY losartan 50 mg PO DAILY meclizine 25 mg PO TID PRN metoprolol succinate ER (Toprol XL) 12.5 mg (1/2 x 25 mg) PO DAILY mirabegron ER (Myrbetriq) 50 mg PO DAILY montelukast 10 mg PO QPM naratriptan 2.5 mg PO DAILY PRN neomycin-polymyxin B-dexameth 3.5mg/mL-10,000 unit/mL-0.1 % 1 drp ophthalmic (eye) QID nicotine 1 patch topical DAILY omeprazole 20 mg PO DAILY ondansetron HCl 8 mg PO TID PRN pantoprazole 20 mg PO DAILY pilocarpine HCl 5 mg PO BID PRN pregabalin 200 mg PO BID riboflavin (vitamin B2) 400 mg PO DAILY risperidone 2 mg PO BEDTIME rizatriptan 10 mg PO DAILY PRN sodium fluoride-pot nitrate 1.1-5 % 1 appl PO BID ticagrelor (Brilinta) 90 mg PO BID varicella-zoster gE-AS01B (PF) 50 mcg/0.5 mL (Shingrix (PF)) 50 mcg intramuscularly 2 doses (at 0 & 2 months) HPI Comments Details: Marilyn comes for follow-up. She has been overall doing well. She is trying to quit smoking. She says she occasionally feels fuzzy and when at [facility] rehab for cardiac rehabilitation she is noticing low blood pressure at those times. The 1st time veno about this. Patient is taking all her medications religiously. Denies any exertional chest pain. However says when she gets anxious or angry she starts having chest discomfort. No heart failure symptoms. No prolonged palpitation irregular heartbeat. [facility] Medical History (Updated 08/13/24 @ 14:36 by Petar Robles MD) Non-ST elevated myocardial infarction (non-STEMI) CAD (coronary artery disease) Smoker Dvt femoral (deep venous thrombosis) Gout GERD (gastroesophageal reflux disease) Vertigo Asthma Migraine Anxiety and depression Fibromyalgia Neuropathy H/O Sjogren's disease Discoid lupus Lupus Surgical History S/P cardiac catheterization Hx of hysterectomy Hx of thumb surgery Hx of knee surgery Family History Other Arthritis Lupus Social History Household Members: Family Housing: Apartment Do you presently have visiting nurse or other home services: No Alcohol intake: former Patient Tobacco Use Status: Current everyday Tobacco user Tobacco use type: Cigarette Cigarette Packs Per Day: 0.5 Cigarettes Per Day: 10.0 service: No Current occupational status: unemployed Review of Systems Const Denies weakness ENT Denies dizziness Card Denies chest pain, Denies chest pain with activity, Denies syncope, Denies rapid heart rate, Denies pedal edema, Denies edema, Denies leg edema, Denies li ghtheadedness, Denies palpitations, Denies dyspnea, Denies dyspnea on exertion and Denies orthopnea Resp Denies cough, Denies dyspnea and Denies dyspnea on exertion GI Denies hematochezia and Denies change in stool character Musc Denies abnormal gait, Denies muscle cramps, Denies muscle weakness, Denies numbness, Denies radiating pain into limb and Denies tingling Neuro Denies abnormal gait, Denies dizziness, Denies syncope, Denies numbness, Denies tingling and Denies weakness Endo Denies palpitations Physical Exam Vital Signs: Last Vital Signs Pulse 80 08/13/24 13:52 BP 108/58 L 08/13/24 13:52 BMI result Body Mass Index 38.4 Const General: cooperative, comfortable, no acute distress, alert and awake Nutritional Appearance: obese morbidly obese Orientation/consciousness: patient oriented x3 Neck Neck: Yes trachea midline, Yes supple and Yes no JVD Resp Effort & Inspection: normal respiratory effort Auscultation: clear to auscultation bilaterally and diminished lung sounds Cardio Jugular venous distension: no JVD Palpation: normal PMI Rate: regular rate Rhythm: regular rhythm Heart sounds: S1 normal heart sound present, S2 normal heart sound present, no click, no gallops and no murmurs GI Auscultation: normal bowel sounds Skin General skin exam: no rashes or lesions noted Neuro General: patient oriented x3 and no focal motor deficits Extrem General: Yes no clubbing, cyanosis or edema Assessment & Plan Assessment & Plan (1) CAD (coronary artery disease): Code(s): I25.10 - Atherosclerotic heart disease of [place] coronary artery without angina pectoris Category: Medical Plan: CAD status post NSTEMI in April status post LAD stenting. Currently having chest tightness under emotional duress. We discussed about stress mitigation strategies. Complete smoking cessation was advised. Will provide her with sublingual nitroglycerin in case. Continue dual antiplatelet therapy till at least April of 2025 and longer if needed. Continue high-intensity statin therapy. Advised lipid panel in near future to assess LDL goal of closer to 60 mg/dL. Continue participate in regular physical activity and weight loss program. (2) Dizziness: Code(s): R42 - Dizziness and giddiness Plan: Dizziness most likely low blood pressure. May be over corrected blood pressure at this point time. I have suggested her to start metoprolol at this point time. Advised to continue monitor blood pressure at home maintain a log. If her systolic blood pressure remains frequently below 100 mm Hg with symptoms will further reduce losartan therapy at this point time. Advised to increase fluid intake. Will follow up in the clinic in 6 months time, sooner p.r.n.. Thank you for allowing me to partake in his care Orders: Orders Lipid Panel Today I25.10 - Atherosclerotic heart disease of [place] coronary artery without angina pectoris Medications: New nitroglycerin (Nitrostat) do not exceed 3 doses per episode 0.4 mg sublingual Q5M PRN 30 tabs 1RF chest pain Coding Level of Care Code Est Pt Level 4 (03298) Diagnoses CAD (coronary artery disease) I25.10 Dizziness R42
== END 2024-08-13 14:25 | disposition home or self-care (01) ==
PROVIDERS: PCP Student in an Organized Health Care Education/Training Program; Visit Provider Internal Medicine Cardiovascular Disease
DX: I25.10 Atherosclerotic heart disease of native coronary artery without angina pectoris (principal); R42 Dizziness and giddiness
CPT/HCPCS: 99214

== ENCOUNTER → 2024-08-13 13:37 | Outpatient (BNVA) | payer OTHER, SELFPAY | PROVIDERS: PCP Student in an Organized Health Care Education/Training Program; Visit Provider Internal Medicine Cardiovascular Disease | DX: I10 Essential (primary) hypertension (principal); R42 Dizziness and giddiness | CPT/HCPCS: 99212 ==

== ENCOUNTER 2024-08-26 11:36 | Outpatient (REF) | payer OTHER, SELFPAY ==
[2024-08-26 12:10] LABS: MANUAL DIFF FLAG NO
[2024-08-26 12:50] LABS: Basophils Percent Auto 0.6 % (0-2); Eosinophils Absolute Auto 0.3 X10*3/uL (0.0-0.4); Eosinophils Percent Auto 4.4 % (0-4); Hematocrit 36.9 % (37.0-47.0); Hemoglobin 12.6 g/dl (12.0-16.0); Imm Gran Abs Auto 0.02 X10*3/uL (0.00-0.03); Imm Gran Pct Auto 0.3 % (0.0-0.4); Lymphocytes Percent Auto 27.6 % (20-40); Mean Corpuscular HGB Conc 34.1 g/dl (31.0-35.0); Mean Corpuscular Hemoglobin 29.2 pg (27.0-33.0); Mean Corpuscular Volume 85.6 fL (80.0-98.0); Mean Platelet Volume 11.5 fL (9.4-12.3); Monocytes Absolute Auto 0.3 X10*3/uL (0.1-1.2); Monocytes Percent Auto 3.6 % (2-11); Neutrophils Absolute Auto 4.6 x10*3/uL (2.0-8.3); Neutrophils Percent Auto 63.5 % (45-73); Platelet Count 283 X10*3/uL (160-400); Red Blood Count 4.31 X10*6/uL (4.20-5.50); Red Cell Distribution Width 13.3 % (11.0-16.0); White Blood Count 7.2 X10*3/uL (4.8-10.8)
[2024-08-26 13:06] LABS: Appearance Urine Clear; Color Urine Yellow; Glucose Urine UA Negative (Negative); Leukocyte Esterase Urine Negative (Negative); Nitrite Urine Negative (Negative); Specific Gravity - Urine <= 1.005 (1.005-1.025); UMIC TRIGGER UA YES; Urine Blood Trace (Negative); Urine Ketones Negative (Negative); Urine Protein Negative (Neg-Trace)
[2024-08-26 13:10] LABS: Bacteria Urine None Seen (None Seen); Hyaline Casts Urine 0-2 /LPF (0-2); Squamous Epithelial Cell Urine 0-2 /HPF (0-2); WBC Urine 0-5 /HPF (0-5)
[2024-08-26 13:22] LABS: Creatinine Urine 13.03 mg/dL; Total Protein Urine Random < 7 mg/dL (<12)
[2024-08-26 13:25] LABS: Alanine Aminotransferase 29 U/L (0-31); Albumin Level 3.9 g/dL (3.5-5.0); Alkaline Phosphatase 76 U/L (39-117); Anion Gap 12 (12-20); Aspartate Amino Transferase 34 U/L (5-31); Bilirubin Total 0.3 mg/dL (0.0-1.0); Blood Urea Nitrogen 10 mg/dL (9-16); C Reactive Protein 1.77 mg/dL (< or = 0.50); Calcium 9.3 mg/dL (8.4-10.2); Carbon Dioxide 29 mmol/L (22-29); Chloride 101 mmol/L (96-108); Cholesterol 137 mg/dL (<200); Estimated Glomerular Filt Rate > 60; Glucose Random 171 mg/dL (60-115); HDL Cholesterol 36 mg/dL (>40); LDL Cholesterol Calculated 57 mg/dL (<100); Potassium 3.7 mmol/L (3.3-5.1); Sodium 138 mmol/L (135-145); Triglycerides 220 mg/dL (<150)
[2024-08-26 13:30] LABS: Erythrocyte Sedimentation Rate 34 MM/HR (0-20)
[2024-08-28 11:44] LABS: Complement C3 138 mg/dL (83-193)
[2024-08-28 13:48] LABS: Anti DNA DS Antibody 3 IU/mL
== END 2024-08-26 11:37 | disposition home or self-care (01) ==
LOC: HO.LAB 11:36
PROVIDERS: Internal Medicine Cardiovascular Disease; Visit Provider Student in an Organized Health Care Education/Training Program
DX: I25.10 Atherosclerotic heart disease of native coronary artery without angina pectoris (principal); M32.9 Systemic lupus erythematosus, unspecified
CPT/HCPCS: 36415; 80053; 80061; 81001; 82570; 84156; 85025; 85652; 86140; 86160; 86225

== ENCOUNTER 2024-09-07 13:50 | Outpatient (AMB) | payer OTHER, SELFPAY ==
--- OUTSIDE RECORDS SUMMARY | 2024-09-07 13:54 | XMS_ITS | Continuity of Care Document ---
Author Organization [facility] Address [address] [place] [id number] Care Team Providers Care Base Wad Operator Adjuster Name Role Phone Otilia MEHTA, Kav Primary Care Physic astrid Encounter [facility] [place] Date(s): 12/02/19 - 01/17/20 [facility] [address] [place] [id number] [facility] Attending Physician: Not on Staff, Attending MD Allergies, Adverse Reactions, Alerts No Known Medication Allergies Immunizations Given and Recorded Vaccine Date Status Refusal Reason influenza virus vaccine, inactivated 09/22/19 Give n influenza virus vaccine, inactivated 12/15/18 Give n influenza virus vaccine, inactivated 12/23/17 Give n influenza virus vaccine, inactivated 09/05/16 Give n influenza virus vaccine, inactivated 10/25/15 Give n influenza virus vaccine, inactivated 09/22/14 Give n influenza virus vaccine, inactivated 07/15/13 Give n influenza virus vaccine, inactivated 1 01/28/13 Gi diane pneumococcal 23-valent vaccine 10/25/15 Given tetanus/diphtheria/pertussis, acel(Tdap) 2 01/28/13 Given 1Admin Note: flulaval vis given vis date 05/05/2012 2Admin Note: VIS GIVEN VIS DATE 11/27/2011 Medications acetaminophen 500 mg oral tablet 2 tablet = 1,000 mg, By Mouth, Every 8 hours, PRN as needed for pain, # 100 tablet, 2 Refills, Maintenance, 09/22/19 14:09:25 EST Start Date: 09/22/19 Status: Ordered Advair Diskus 100 mcg-50 mcg inhalation powder 1, puffs, Inhalation, 2 times a day, Prescribed by [facility]., # 1 each, Refills 11, Tot. Refills 11, Maintenance, 03/13/18 11:00:50 EDT, Inhaler, Route to Pharmacy Electronically, [id number], [facility]/pharmacy #[id number] Start Date: 03/13/18 Status: Ordered albuterol 0.083% inhalation solution 3 mL = 2.5 mg, Neb, Every 6 hours, PRN Wheezing/Shortness of Breath, # 360 mL, 2 Refills, Maintenance, 12/04/19 15:27:00 EST, [facility]/pharmacy #207, 165.1, cm, 12/04/19 14:54:00 EST, Height, 86.4, kg, 08/10/19 14:42:00 EDT, Dry Weight Start Date: 12/04/19 Status: Ordered Lety Allergy 60 mg oral tablet 3 tablet = 180 mg, By Mouth, Daily, Prescribed by [facility] in [place]., # 90 tablet, 0 Refills, Maintenance, 02/16/16 14:46:50, Tablet Start Date: 02/16/16 Stop Date: 03/17/16 Status: Ordered amitriptyline 10 mg oral tablet 10 mg, 1, tablet, By Mouth, Daily at bedtime, # 30 tablet, Refills 5, Tot. Refills 5, Maintenance, 06/30/19 15:15:49 EDT, Route to Pharmacy Electronically, [id number], [facility]/pharmacy #[id number] Start Date: 06/30/19 Status: Ordered AUTO CPAP MACHINE AND SUPPLIES AUTO CPAP MACHINE AND SUPPLIES, See Instructions, # 1 each, Refills 0, Tot. Refills 0, Maintenance,Auto CPAP 6-18 cm H2O, with heated humidifier and download capacity. PLS REFILL X 12 FOR CPAP SUPPLIES DX: AIRAM ICD-10 G47.33, 11/25/15 8:44:54, Com... Start Date: 11/25/15 Status: Ordered baclofen 10 mg oral tablet 15 mg, 1.5, tablet, By Mouth, 3 times a day, # 135 tablet, Refills 3, Tot. Refills 3, Maintenance, 10/14/19 17:13:14 EST, Route to Pharmacy Electronically, [id number], [facility]/pharmacy #[id number], 165.1, cm, 10/14/19 11:26:54 EST, Hei... Start Date: 10/14/19 Stop Date: 02/11/20 Status: Ordered Calcium 250 mg + Vitamin D 125 IU Tablet By Mouth, 2 times a day, 0 Refills, Maintenance, 09/23/12 17:09:17 Start Date: 09/23/12 Status: Ordered clonazepam 0.5 mg oral tablet = 1 mg, By Mouth, 3 times a day, 0 Refills, Maintenance, 04/16/13 15:20:03 EDT, Tablet Start Date: 04/16/13 Status: Ordered cloNIDine 0.1 mg oral tablet 0.1 mg, 1, tablet, By Mouth, Daily at bedtime, Refills 0, Maintenance, 10/15/18 12:11:42 EST Start Date: 10/15/18 Status: Ordered Cymbalta 30 mg oral enteric coated capsule 1 capsule = 30 mg, By Mouth, Daily, 0 Refills, Maintenance, 08/10/19 15:02:15 EDT Start Date: 08/10/19 Status: Ordered diclofenac 1% topical gel 1 application, Topically, 4 times a day, # 100 Gm, 2 Refills, Maintenance, 04/28/19 15:43:47 EDT, Gel, 1 application Topically 4 times a day,x30 days Start Date: 04/28/19 Stop Date: 07/27/19 Status: Ordered docusate sodium 100 mg oral tablet 1 tablet = 100 mg, By Mouth, 2 times a day, PRN to prevent constipation, with plenty of water, # 60tablet, 5 Refills, Maintenance, 05/05/19 11:28:19 EDT Start Date: 05/05/19 Status: Ordered HydrOXYzine = 25 mg, By Mouth, 2 times a day, PRN as needed for itching, 0 Refills, Maintenance, 11/28/16 10:21:04 Start Date: 11/28/16 Status: Ordered Imitrex 100 mg oral tablet See Instructions, 1 tablet by mouth at the onset of headache. May repeat once in 2 hours. Not > 4/week., # 9 tablet, 0 Refills, Maintenance, 08/26/17 8:16:14 Start Date: 08/26/17 Status: Ordered Knee high compression stockings at 15-20mmHg Knee high compression stockings at 15-20mmHg, See Instructions, # 2 pair, Refills 0, Tot. Refills 0, Maintenance, Use for edema and lupus L93.0, R60.9, 12/23/17 9:14:40, Compound Start Date: 12/23/17 Status: Ordered meclizine 25 mg oral tablet 1 tablet = 25 mg, By Mouth, 3 times a day, PRN for dizziness, # 30 tablet, 1 Refills, Maintenance, 05/05/19 11:25:19 EDT, Tablet Start Date: 05/05/19 Status: Ordered mirabegron 50 mg oral tablet, extended release 1 tablet = 50 mg, By Mouth, Daily, do not crush or chew, # 30 tablet, 5 Refills, Maintenance, 08/10/19 15:02:11 EDT, ER Tablet Start Date: 08/10/19 Status: Ordered MiraLax oral powder for reconstitution = 17 Gm, By Mouth, Daily, PRN Constipation, dissolve in water before taking, # 255 Gm, 2 Refills, Maintenance, 05/05/19 11:28:35 EDT, REC Powder, 17 Gm By Mouth Daily,PRN:Constipation,Instr:dissolve in water before taking Start Date: 05/05/19 Status: Ordered Myrbetriq 25 mg oral tablet, extended release See Instructions, # 30 tablet, Refills 5 Tot. Refills 5, TAKE 1 TABLET BY MOUTH DAILY,INSTR:DO NOT CRUSH OR CHEW, [facility]/pharmacy #[id number] Start Date: 07/07/19 Status: Ordered Nebulizer/Compressor See Instructions, # 1 each, Refills 0, Tot. Refills 0, Maintenance, for PRN albuterol inhaled, 11/21/17 16:27:13, Compound Start Date: 11/21/17 Status: Ordered omeprazole 20 mg oral enteric coated capsule 1 capsule = 20 mg, By Mouth, Daily, # 30 capsule, 2 Refills, Maintenance, 01/07/20 15:11:00 EST, [facility]/pharmacy #[id number], 165.1, cm, 01/07/20 14:51:00 EST, Height, 86, kg, 05/18/19 10:08:00 EDT, Dry Weight Start Date: 01/07/20 Status: Ordered Plaquenil 200 mg oral tablet 400 mg, 2, tablet, By Mouth, Daily, Refills 0, Maintenance, 11/28/16 10:20:10 EST Start Date: 11/28/16 Status: Ordered pregabalin 100 mg oral capsule 1 capsule = 100 mg, By Mouth, 2 times a day, Dose increase to 100mg bid 12/30/18., # 60 capsule, 5 Refills, Maintenance, 09/22/19 14:09:56 EST Start Date: 09/22/19 Status: Ordered raNITIdine 150 mg oral tablet 1 tablet = 150 mg, By Mouth, 2 times a day, # 60 tablet, 2 Refills, Maintenance, 01/07/20 15:12:00 EST, [facility]/pharmacy #[id number], 165.1, cm, 01/07/20 14:51:00 EST, Height, 86, kg, 05/18/19 10:08:00 EDT, Dry Weight Start Date: 01/07/20 Status: Ordered RisperDAL 1 mg oral tablet 1 mg, 1, tablet, By Mouth, Daily at bedtime, Refills 0, Maintenance, 09/22/19 14:01:17 EST Start Date: 09/22/19 Status: Ordered Singulair 10 mg oral tablet 1 tablet = 10 mg, By Mouth, Daily in PM, # 30 tablet, 0 Refills, Maintenance, 12/26/15 10:10:46, Tablet Start Date: 12/26/15 Status: Ordered Spacer Spacer, See Instructions, # 1 units, Refills 0, Tot. Refills 0, Maintenance, Use w inhaler, 10/02/16 12:30:34, Compound Start Date: 10/02/16 Status: Ordered Tylenol 8 HR Arthritis Pain 650 mg oral tablet, extended release 2 tablet = 1,300 mg, By Mouth, Every 8 hours, PRN as needed for fever, # 24 tablet, 0 Refills, Acute 01/31/20 15:27:00 EDT, 12/04/19 15:27:00 EST, ER Tablet, [facility]/pharmacy #[id number], 165.1, cm, 12/04/19 14:54:00 EST, Height, 86.4, kg, 10/07/19 14:42:00 EDT... Start Date: 12/04/19 Stop Date: 01/31/20 Status: Ordered Ventolin 90 mcg Inhaler 2, puffs, Inhalation, 4 times a day, PRN, Refills 0, Maintenance, 11/26/18 9:56:44 EST Start Date: 11/26/18 Status: Ordered Vitamin C By Mouth, Daily, 0 Refills, Maintenance, 01/07/19 11:24:12 EST Start Date: 01/07/19 Status: Ordered Problem List Condition Effective Dates Status Health Status Inform ant Anemia(Confirmed) Active Anxiety(Confirmed) Active Asthma(Confirmed) Active Last pap smear 09/23/12 nega tive with negative HPV. Status post total vaginal hysterectomy, no further paps needed(Confirmed) Active Chronic constipation(Confirmed) Active De Quervain's tenosynovitis(Confirmed) Active Depression(Confirmed) Active Discoid lupus(Confirmed) Active Family history of breast can cer in mother (in her 30's)(Confirmed) Active Fibromyalgia syndrome(Confirmed) Active Gastroesophageal reflux dise ase (GERD)(Confirmed) Active Migraines(Confirmed) Active Migraines(Confirmed) Active Mixed urinary incontinence u rge and stress (primarily urge)(Confirmed) Active Lung nodules, bilateral(Confirmed) Active Small fiber neuropathy, bila teral legs(Confirmed) Active Obesity(Confirmed) Active Obstructive sleep apnea (AIRAM ), on CPAP(Confirmed) Active *BHN/BHCP/Leodan Rich-[phone]/Health group home, active care coordination(Confirmed) Active Sjogren's syndrome(Confirmed) Active Smoker, 5-10 cigarettes per day since age 16. Quit once for 2.5 years(Confirmed) Active Systemic lupus(Confirmed) Active Chronic urticaria(Confirmed) Active Vertigo(Confirmed) Active Social History Social History Type Response Tobacco Started at age: 13 Y ears. Sex Female
--- OUTSIDE RECORDS SUMMARY | 2024-09-07 13:54 | XMS_ITS | Continuity of Care Document ---
Author Organization [facility] Address Unknown Care Team Providers Care Child Care Leader Name Role Phone Ashley Faria MD Primary Care Physician Encounter [facility] Date(s): 08/17/21 - 09/16/21 [facility] Attending Physician: Sosa Joy Admitting Physician: Sosa Joy Referring Physician: Sosa Joy Allergies, Adverse Reactions, Alerts No Known Medication Allergies Immunizations Given and Recorded Vaccine Date Status Refusal Reason SARS-CoV-2 (COVID-19) mRNA-1273 vaccine 1 01/24/21 Recorded SARS-CoV-2 (COVID-19) mRNA-1273 vaccine 2 12/27/20 Recorded influenza virus vaccine, inactivated 3 09/07/20 Re corded influenza virus vaccine, inactivated 09/22/19 Give n influenza virus vaccine, inactivated 12/15/18 Give n influenza virus vaccine, inactivated 12/23/17 Give n influenza virus vaccine, inactivated 09/05/16 Give n influenza virus vaccine, inactivated 10/25/15 Give n influenza virus vaccine, inactivated 09/22/14 Give n influenza virus vaccine, inactivated 07/15/13 Give n influenza virus vaccine, inactivated 4 01/28/13 Gi diane pneumococcal 23-valent vaccine 10/25/15 Given tetanus/diphtheria/pertussis, acel(Tdap) 5 01/28/13 Given 1Result Comment: received 2nd dose at [facility] 2Result Comment: received at [facility] 3Result Comment: received at [facility] on [facility] [place] 4Admin Note: flulaval vis given vis date 05/05/2012 5Admin Note: VIS GIVEN VIS DATE 11/27/2011 Medications acetaminophen 500 mg oral tablet 2 tablet = 1,000 mg, By Mouth, Every 8 hours, PRN as needed for pain, # 100 tablet, 3 Refills, Maintenance, 02/13/21 13:30:00 EDT, [facility]/pharmacy #[id number], 165.1, cm, 02/13/21 12:53:00 EDT, Height, 86, kg, 05/18/19 10:08:00 EDT, Dry Weight Start Date: 02/13/21 Status: Ordered albuterol 0.083% inhalation solution 3 mL = 2.5 mg, Neb, Every 6 hours, PRN Wheezing/Shortness of Breath, # 360 mL, 2 Refills, Maintenance, 12/04/19 15:27:00 EST, [facility]/pharmacy #[id number], 165.1, cm, 12/04/19 14:54:00 EST, Height, 86.4, kg, 08/10/19 14:42:00 EDT, Dry Weight Start Date: 12/04/19 Status: Ordered albuterol CFC free 90 mcg/inh inhalation aerosol 1, puffs, Inhalation, 4 times a day, PRN, # 8 Gm, Refills 11, Tot. Refills 11, Maintenance, 07/21/21 17:07:00 EDT, Aerosol, Route to Pharmacy Electronically, [id number], [facility]/pharmacy #[id number], 165.1, cm, 03/22/21 14:17:00 EDT, H... Start Date: 07/21/21 Status: Ordered Lety Allergy 60 mg oral tablet 3 tablet = 180 mg, By Mouth, Daily, Prescribed by [facility] in [place]., # 90 tablet, 0 Refills, Maintenance, 02/16/16 14:46:50, Tablet Start Date: 02/16/16 Stop Date: 03/17/16 Status: Ordered Srlay-Vghsoo-Ldwe 300 mg oral capsule 1 capsule, By Mouth, 2 times a day, OTC N/C., # 60 capsule, 5 Refills, Maintenance, 08/17/21 15:40:00 EDT, [facility]/pharmacy #[id number], 165.1, cm, 08/14/21 14:44:00 EDT, Height Start Date: 08/17/21 Status: Ordered amitriptyline 10 mg oral tablet 1, tablet, By Mouth, Daily at bedtime, # 90 tablet, Refills 3, Tot. Refills 3, Maintenance, 08/14/21 15:13:00 EDT, Route to Pharmacy Electronically, [facility]/pharmacy #[id number], 165.1, cm, 08/14/21 14:44:00 EDT, Height Start Date: 08/14/21 Status: Ordered AUTO CPAP MACHINE AND SUPPLIES AUTO CPAP MACHINE AND SUPPLIES, See Instructions, # 1 each, Refills 0, Tot. Refills 0, Maintenance,Auto CPAP 6-18 cm H2O, with heated humidifier and download capacity. PLS REFILL X 12 FOR CPAP SUPPLIES DX: AIRAM ICD-10 G47.33, 11/25/15 8:44:54, Com... Start Date: 11/25/15 Status: Ordered baclofen 10 mg oral tablet 20 mg, 2, tablet, By Mouth, 3 times a day, # 180 tablet, Refills 3, Tot. Refills 3, Maintenance, 02/02/20 11:42:00 EDT, [id number] 165.1, cm, 01/07/20 14:51:00 EST, Height, 86.4, kg, 08/10/19 14:42:00 EDT, . Start Date: 02/02/20 Stop Date: 06/01/20 Status: Ordered Calcium 250 mg + Vitamin D 125 IU Tablet By Mouth, 2 times a day, 0 Refills, Maintenance, 09/23/12 17:09:17 Start Date: 09/23/12 Status: Ordered Claritin 5 mg oral tablet, chewable 1 tablet = 5 mg, Chew, Daily, PRN Congestion, # 30 tablet, 0 Refills, Maintenance, 08/14/21 15:27:00 EDT, Chew Tablet, [facility]/pharmacy #[id number], Partial fill upon patient request if the prescription is fora schedule II opioid drug., 165.1, cm, 08/14/21 14:... Start Date: 08/14/21 Stop Date: 09/13/21 Status: Ordered clonazepam 0.5 mg oral tablet = 1 mg, By Mouth, 3 times a day, 0 Refills, Maintenance, 04/16/13 15:20:03 EDT, Tablet Start Date: 04/16/13 Status: Ordered cloNIDine 0.1 mg oral tablet 0.1 mg, 1, tablet, By Mouth, Daily at bedtime, Refills 0, Maintenance, 10/15/18 12:11:42 EST Start Date: 10/15/18 Status: Ordered [facility] CHILD ALLERGY RLF 5 MG CHW [facility] CHILD ALLERGY RLF 5 MG CHW, 1, tablet, By Mouth, Daily, PRN, # 30 tablet, 0 Refills, CHEW., 165.1, cm, 08/14/21 14:44:00 EDT, Height Start Date: 09/14/21 Status: Ordered Cymbalta 30 mg oral enteric coated capsule 1 capsule = 30 mg, By Mouth, 2 times a day, 0 Refills, Maintenance, 08/10/19 15:02:15 EDT Start [...] 11:28:19 EDT Start Date: 05/05/19 Status: Ordered Flovent Diskus 100 mcg/inh inhalation powder 1 puffs, Inhalation, 2 times a day, # 60 Unknown, 0 Refills, Maintenance, 04/16/21 19:52:00 EDT, [facility] STORE [id number], 30, INHALE 1 PUFF BY MOUTH TWICE A DAY, 165.1, cm, 03/22/21 14:17:00 EDT, Height, 86.4, kg, 08/10/19 14:42:00 EDT, Dry Weight Start Date: 04/16/21 Status: Ordered HydrOXYzine = 25 mg, By Mouth, 2 times a day, PRN as needed for itching, 0 Refills, Maintenance, 11/28/16 10:21:04 Start Date: 11/28/16 Status: Ordered Knee high compression stockings at 15-20mmHg Knee high compression stockings at 15-20mmHg, See Instructions, # 2 pair, Refills 0, Tot. Refills 0, Maintenance, Use for edema and lupus L93.0, R60.9, 12/23/17 9:14:40, Compound Start Date: 12/23/17 Status: Ordered meclizine 25 mg oral tablet 1 tablet, By Mouth, 3 times a day, PRN NEEDED FOR DIZZINESS, # 30 tablet, 2 Refills, [id number], 165.1, cm, 08/14/21 14:44:00 EDT, Height Start Date: 08/17/21 Status: Ordered MiraLax oral powder for reconstitution = 17 Gm, By Mouth, Daily, PRN Constipation, dissolve in water before taking, # 255 Gm, 2 Refills, Maintenance, 05/05/19 11:28:35 EDT, REC Powder, 17 Gm By Mouth Daily,PRN:Constipation,Instr:dissolve in water before taking Start Date: 05/05/19 Status: Ordered Myrbetriq 50 mg oral tablet, extended release 1 tablet, By Mouth, Daily, DO NOT CRUSH OR CHEW., # 30 tablet, 5 Refills, Maintenance, 02/01/21 16:14:00 EDT, [id number], 165.1, cm, 12/08/20 15:27:00 EST, Height, 86.4, kg, 08/10/19 14:42:00 EDT, Dry Weight Start Date: 02/01/21 Status: Ordered Nebulizer/Compressor See Instructions, # 1 each, Refills 0, Tot. Refills 0, Maintenance, for PRN albuterol inhaled, 11/21/17 16:27:13, Compound Start Date: 11/21/17 Status: Ordered omeprazole 20 mg oral enteric coated capsule 1 capsule = 20 mg, By Mouth, Daily, # 30 capsule, 0 Refills, Maintenance, 09/06/21 10:32:00 EDT, [facility]/pharmacy #[id number], 165.1, cm, 08/14/21 14:44:00 EDT, Height Start Date: 09/06/21 Status: Ordered Plaquenil 200 mg oral tablet 400 mg, 2, tablet, By Mouth, Daily, Refills 0, Maintenance, 11/28/16 10:20:10 EST Start Date: 11/28/16 Status: Ordered pregabalin 100 mg oral capsule 1 capsule = 100 mg, By Mouth, 2 times a day, Dose increase to 100mg bid 12/30/18., # 60 capsule, 5 Refills, Maintenance, 09/22/19 14:09:56 EST Start Date: 09/22/19 Status: Ordered riboflavin 400 mg oral capsule 1 capsule = 400 mg, By Mouth, Daily, # 100 capsule, 2 Refills, Maintenance, 09/12/20 18:13:00 EST, Capsule, [facility]/pharmacy #207, 165.1, cm, 05/10/20 10:01:00 EDT, Height, 86.4, kg, 08/10/19 14:42:00 EDT, Dry Weight Start Date: 09/12/20 Status: Ordered RisperDAL 1 mg oral tablet [...] 12:30:34, Compound Start Date: 10/02/16 Status: Ordered SUMAtriptan 100 mg oral tablet See Instructions, TAKE 1 TABLET BY MOUTH AT THE ONSET OF HEADACHE. MAY REPEAT ONCE IN 2 HOURS. NOT > 4/WEEK., # 9 tablet, 1 Refills, Maintenance, 08/17/21 15:39:00 EDT, [facility]/pharmacy #[id number], 165.1, cm, 08/14/21 14:44:00 EDT, Height Start Date: 08/17/21 Status: Ordered Symbicort 80mcg/4.5mcg Inhaler See Instructions, PRN, As needed, # 1 each, Refills 6, Tot. Refills 6, Maintenance, 08/14/21 15:31:00 EDT, Instructions Replace Required Details Aerosol, Route to Pharmacy Electronically, [id number], [facility]/pharmacy #[id number], 165.1... Start Date: 08/14/21 Status: Ordered Ventolin 90 mcg Inhaler 2, puffs, Inhalation, 4 times a day, PRN, Refills 0, Maintenance, 11/26/18 9:56:44 EST Start Date: 11/26/18 Status: Ordered Vitamin C By Mouth, Daily, 0 Refills, Maintenance, 01/07/19 11:24:12 EST Start Date: 01/07/19 Status: Ordered ZyrTEC 10 mg oral tablet, chewable 1 tablet = 10 mg, By Mouth, Daily, PRN for allergy symptoms, # 30 tablet, 0 Refills, Maintenance, 08/14/21 15:27:00 EDT, Chew Tablet, [facility]/pharmacy #[id number], Partial fill upon patient request if the prescription is for a schedule II opioid drug., 165.1, c... Start Date: 08/14/21 Status: Ordered Problem List Condition Effective Dates [...] apnea (AIRAM ), on CPAP(Confirmed) Active *BHN/BHCP/Leodan Rich-[phone]/Health [facility]pc, active care coordination(Confirmed) Active Sjogren's syndrome(Confirmed) Active Smoker, 5-10 cigarettes per day since age 16. Quit once for 2.5 years(Confirmed) Active Systemic lupus(Confirmed) Active Chronic urticaria(Confirmed) Active Vertigo(Confirmed) Active Social History Social History Type Response Tobacco Started at age: 13 Y ears. Sex Female
--- OUTSIDE RECORDS SUMMARY | 2024-09-07 13:54 | XMS_ITS | Continuity of Care Document ---
Author Organization [facility] Theresa n's [facility] Address [address], [address] [place] [address]- Care Team Providers Care Control Clerk Subassembly Name Role Phone Giana MEHTA, Ashley Primary Care Physician Encounter [facility] Date(s): 07/31/22 - 08/30/22 [facility] Bradamado BrownleeKindaras [facility] [address], [address]th [place] [address]- Attending Physician: Sosa Joy Admitting Physician: AdmSosa jean baptiste Referring Physician: AdmtrSosa Allergies, Adverse Reactions, Alerts No Known Medication Allergies Immunizations Given and Recorded Vaccine Date Status Refusal Reason influenza virus vaccine, inactivated 08/22/22 Give n influenza virus vaccine, inactivated 09/20/21 Give n influenza virus vaccine, inactivated 1 09/07/20 Re corded influenza virus vaccine, inactivated 09/22/19 Give n influenza virus vaccine, inactivated 12/15/18 Give n influenza virus vaccine, inactivated 12/23/17 Give n influenza virus vaccine, inactivated 09/05/16 Give n influenza virus vaccine, inactivated 10/25/15 Give n influenza virus vaccine, inactivated 09/22/14 Give n influenza virus vaccine, inactivated 07/15/13 Give n influenza virus vaccine, inactivated 2 01/28/13 Gi diane SARS-CoV-2 (COVID-19) mRNA-1273 vaccine 3 01/24/21 Recorded SARS-CoV-2 (COVID-19) mRNA-1273 vaccine 4 12/27/20 Recorded pneumococcal 23-valent vaccine 10/25/15 Given tetanus/diphtheria/pertussis, acel(Tdap) 5 01/28/13 Given 1Result Comment: received at [facility] on [facility] in [place] 2Admin Note: flulaval vis given vis date 05/05/2012 3Result Comment: received 2nd dose at [facility] 4Result Comment: received at [facility] 5Admin Note: VIS GIVEN VIS DATE 11/27/2011 Medications acetaminophen 500 mg oral tablet 2 tablet, By Mouth, Every 8 hours, PRN NEEDED FOR PAIN, # 100 tablet, 3 Refills, Maintenance, 07/12/22 19:10:00 EDT, [facility]/pharmacy #[id number], 165.1, cm, 07/12/22 17:15:00 EDT, Height Start Date: 07/12/22 Status: Ordered albuterol 0.083% inhalation solution 3 mL = 2.5 mg, Neb, Every 6 hours, PRN Wheezing/Shortness of Breath, # 360 mL, 2 Refills, Maintenance, 09/20/21 15:13:00 EST, [facility]/pharmacy #[id number], 165.1, cm, 09/20/21 14:28:00 EST, Height Start Date: 09/20/21 Status: Ordered albuterol CFC free 90 mcg/inh inhalation aerosol 1, puffs, Inhalation, 4 times a day, PRN, # 8 Gm, Refills 11, Tot. Refills 11, Maintenance, 07/21/21 17:07:00 EDT, Aerosol, Route to Pharmacy Electronically, [id number], [facility]/pharmacy #1, 165.1, cm, 03/22/21 14:17:00 EDT, H... Start Date: 07/21/21 Status: Ordered Lrgog-Sqtoff-Uynq 300 mg oral capsule 1 capsule, By Mouth, 2 times a day, OTC N/C., # 60 capsule, 5 Refills, Maintenance, 08/17/21 15:40:00 EDT, [id number], 165.1, cm, 08/14/21 14:44:00 EDT, Height Start Date: 08/17/21 Status: Ordered amitriptyline 10 mg oral tablet 1, tablet, By Mouth, Daily at bedtime, # 90 tablet, Refills 3, Tot. Refills 3, Maintenance, 08/14/21 15:13:00 EDT, Route to Pharmacy Electronically, [facility]/pharmacy #[id number], 165.1, cm, 08/14/21 14:44:00 EDT, Height Start Date: 08/14/21 Status: Ordered amitriptyline 10 mg oral tablet 10 mg, 1, tablet, By Mouth, Daily at bedtime, # 30 tablet, Refills 5, Tot. Refills 5, Maintenance, 07/31/22 16:08:00 EDT, Route to Pharmacy Electronically, [facility]/pharmacy #207, 165.1, cm, 07/12/22 17:15:00 EDT, Height Start Date: 07/31/22 Status: Ordered AUTO CPAP MACHINE AND SUPPLIES [...] 02/02/20 11:42:00 EDT, Route to Pharmacy Electronically, [facility]/pharmacy #[id number], 165.1, cm, 01/07/20 14:51:00 EST, Height, 86.4, kg, 08/10/19 14:42:00 EDT, Start Date: 02/02/20 Stop Date: 06/01/20 Status: Ordered Calcium 250 mg + Vitamin D 125 IU Tablet By Mouth, 2 times a day, 0 Refills, Maintenance, 09/23/12 17:09:17 Start Date: 09/23/12 Status: Ordered Claritin 5 mg oral tablet, chewable 1 tablet = 5 mg, Chew, Daily, PRN Congestion, # 30 tablet, 0 Refills, Maintenance, 08/14/21 15:27:00 EDT, Chew Tablet, [facility]/pharmacy #207, Partial fill upon patient request if the [...] 11:28:19 EDT Start Date: 05/05/19 Status: Ordered famotidine 20 mg oral tablet 1, tablet, By Mouth, 2 times a day, # 60 tablet, Refills 5, Tot. Refills 5, 07/12/22 19:10:00 EDT, Route to Pharmacy Electronically, [facility]/pharmacy #[id number], 165.1, cm, 07/12/22 17:15:00 EDT, Height Start Date: 07/12/22 Status: Ordered fexofenadine 180 mg oral tablet 1 tablet = 180 mg, By Mouth, Daily, # 30 tablet, 3 Refills, Maintenance, 09/21/21 15:08:00 EST, Tablet, [facility]/pharmacy #[id number], Partial fill upon patient request if the prescription is for a schedule II opioid drug., 165.1, cm, 09/20/21 14:28:00 EST, Height Start Date: 09/21/21 Status: Ordered Flovent Diskus 100 mcg/inh inhalation powder 1 puffs, Inhalation, 2 times a day, # 60 Unknown, 0 Refills, Maintenance, 04/16/21 19:52:00 EDT, [facility] STORE [facility], 30, INHALE 1 PUFF BY MOUTH TWICE [...] FOR DIZZINESS, # 30 tablet, 2 Refills, Maintenance, 07/12/22 19:13:00 EDT, [facility]/pharmacy #[id number], 165.1, cm, 07/12/22 17:15:00 EDT, Height Start Date: 07/12/22 Status: Ordered MiraLax oral powder for reconstitution [...] NOT CRUSH OR CHEW., # 30 tablet, 11 Refills, Maintenance, 07/31/22 16:07:00 EDT, [facility]/pharmacy #[id number], 165.1, cm, 07/12/22 17:15:00 EDT, Height Start Date: 07/31/22 Status: Ordered Nebulizer/Compressor See Instructions, # 1 each, Refills 0, Tot. Refills 0, Maintenance, for PRN albuterol inhaled, 11/21/17 16:27:13, Compound Start Date: 11/21/17 Status: Ordered Plaquenil 200 mg oral tablet 400 mg, 2, tablet, By Mouth, Daily, Refills 0, Maintenance, 11/28/16 10:20:10 EST Start Date: 11/28/16 Status: Ordered pregabalin 150 mg oral capsule 1 capsule = 150 mg, By Mouth, 2 times a day, # 180 capsule, 1 Refills, Maintenance, 02/02/22 14:07:00 EDT, Capsule, [facility]/pharmacy #[id number], Partial fill upon patient request if the prescription is for a schedule II opioid drug., 165.1, cm, 02/02/22 13:29:... Start Date: 02/02/22 Status: Ordered riboflavin 400 mg oral capsule 1 capsule = 400 mg, By Mouth, Daily, # 100 capsule, 2 Refills, Maintenance, 09/12/20 18:13:00 EST, Capsule, [facility]/pharmacy #[id number], 165.1, cm, 05/10/20 10:01:00 EDT, Height, 86.4, kg, 08/10/19 14:42:00 EDT, Dry Weight Start Date: 09/12/20 Status: Ordered RIBOFLAVIN 400 MG TABLET RIBOFLAVIN 400 MG TABLET, 1, tablet, By Mouth, Daily, # 30 tablet, 9 Refills, 165.1, cm, 10/25/21 10:10:00 EST, Height Start Date: 01/03/22 Status: Ordered RisperDAL 1 mg oral tablet [...] tablet, 1 Refills, Maintenance, 08/17/21 15:39:00 EDT, [facility]/pharmacy #[id number], 165.1, cm, 08/14/21 14:44:00 EDT, Height Start Date: 08/17/21 Status: Ordered Symbicort 80mcg/4.5mcg Inhaler See Instructions, PRN, 1 puff 2 x per day BRand name covered by hne, # 1 each, Refills 6, Tot. Refills 6, Maintenance, 09/29/21 9:04:00 EST, Instructions Replace Required Details Aerosol, Route to Pharmacy Electronically, [id number]... Start Date: 09/29/21 Status: Ordered Ventolin 90 mcg Inhaler 2, puffs, Inhalation, 4 times a day, PRN, Refills 0, Maintenance, 11/26/18 9:56:44 EST Start Date: 11/26/18 Status: Ordered Vitamin C By Mouth, Daily, 0 Refills, Maintenance, 01/07/19 11:24:12 EST Start Date: 01/07/19 Status: Ordered ZyrTEC 10 mg oral tablet, chewable 1 tablet = 10 mg, By Mouth, Daily, PRN for allergy symptoms, # 60 tablet, 3 Refills, Maintenance, 09/20/21 15:14:00 EST, Chew Tablet, [facility]/pharmacy #[id number], Partial fill upon patient request if the prescription is for a schedule II opioid drug., 165.1, c... Start Date: 09/20/21 Stop Date: 05/18/22 Status: Ordered Problem List Condition Confirmation Course Effective Dates Status H ealth Status Informant Anemia Confirmed Active Anxiety Confirmed Active Asthma Confirmed Active Last pap smear 09/23/12 negative with negative HPV. Status post total vaginal hysterectomy, no further paps needed Confirmed Active Chronic constipation Confirmed Active De Quervain's tenosynovitis Confirmed Active Depression Confirmed Active Discoid lupus Confirmed Active Family history of breast cancer in mother (in her 30's) Confirmed Active Fibromyalgia syndrome Confirmed Active Gastroesophageal reflux disease (GERD) Confirmed Active Migraines Confirmed Active Migraines Confirmed Active Mixed urinary incontinence urge and stress (primarily urge) Confirmed Active Lung nodules, bilateral Confirmed Active Small fiber neuropathy, bilateral legs Confirmed Active Obese class II Confirmed Active Obesity Confirmed Active Obstructive sleep apnea (AIRAM), on CPAP Confirmed Active Sjogren's syndrome Confirmed Active Smoker, 5-10 cigarettes per day since age 16. Quit once for 2.5 years Confirmed Active Systemic lupus Confirmed Active Chronic urticaria Confirmed Active Vertigo Confirmed Active Social History Social History Type Response Tobacco Started at age: 13 Y ears. Sex Female Patient Care team information Personnel Name: Ashley Faria MD Address: Address: [address] [place] [address] Adult [place], [place] [address]
--- OUTSIDE RECORDS SUMMARY | 2024-09-07 13:54 | XMS_ITS | Continuity of Care Document ---
Author Organization [facility] Theresa n's [facility] Address [address], [address] [place] [address]- Care Team Providers Care Top Stitcher Name Role Phone Giana MEHTA, Ashley Primary Care Physician [phone] Encounter [facility] Date(s): 01/05/22 - 02/04/22 [facility] Bradamado BrownleeRoundrates [facility] [address], [address]th [place] [address]- Allergies, Adverse Reactions, Alerts No Known Medication Allergies Immunizations Given and Recorded Vaccine Date Status Refusal Reason influenza virus vaccine, inactivated 09/20/21 Give n [...] 5 01/28/13 Given 1Result Comment: received at [facility] on [facility] in [place] 2Admin Note: flulaval vis given vis date 05/05/2012 3Result Comment: received 2nd dose at [facility] 4Result Comment: received at [facility] 5Admin Note: VIS GIVEN VIS DATE 11/27/2011 Medications acetaminophen 500 mg oral tablet 2 tablet, By Mouth, Every 8 hours, PRN NEEDED FOR PAIN, # 100 tablet, 3 Refills, [facility], 165.1, cm, 09/20/21 14:28:00 EST, Height Start Date: 10/10/21 Status: Ordered albuterol 0.083% inhalation solution 3 mL = 2.5 mg, Neb, Every 6 hours, PRN Wheezing/Shortness of Breath, # 360 mL, 2 Refills, Maintenance, 09/20/21 15:13:00 EST, [facility]/pharmacy #1, 165.1, cm, 09/20/21 14:28:00 EST, Height Start Date: 09/20/21 Status: Ordered albuterol CFC free 90 mcg/inh inhalation aerosol 1, puffs, Inhalation, 4 times a day, PRN, # 8 Gm, Refills 11, Tot. Refills 11, Maintenance, 07/21/21 17:07:00 EDT, Aerosol, Route to Pharmacy Electronically, [id number], [facility]/pharmacy #1, 165.1, cm, 03/22/21 14:17:00 EDT, H... Start Date: 07/21/21 Status: Ordered Yiaql-Gefrnw-Kfsn 300 mg oral capsule 1 capsule, By Mouth, 2 times a day, OTC N/C., # 60 capsule, 5 Refills, Maintenance, 08/17/21 15:40:00 EDT, [facility]/pharmacy #1, 165.1, cm, 08/14/21 14:44:00 EDT, Height Start Date: 08/17/21 Status: Ordered amitriptyline 10 mg oral tablet 1, tablet, By Mouth, Daily at bedtime, # 90 tablet, Refills 3, Tot. Refills 3, Maintenance, 08/14/21 15:13:00 EDT, Route to Pharmacy Electronically, [facility]/pharmacy #1, 165.1, cm, 08/14/21 14:44:00 EDT, Height Start [...] 02/02/20 11:42:00 EDT, Route to Pharmacy Electronically, [facility]/pharmacy #[id number], 165.1, cm, 01/07/20 14:51:00 EST, Height, [...] Refills, Maintenance, 08/14/21 15:27:00 EDT, Chew Tablet, [facility]/pharmacy #2071, Partial fill upon patient request if [...] Status: Ordered famotidine 20 mg oral tablet 20 mg, 1, tablet, By Mouth, 2 times a day, # 60 tablet, Refills 3, Tot. Refills 3, Maintenance, 09/20/21 15:12:00 EST, Route to Pharmacy Electronically, [facility]/pharmacy #2071, Partial fill upon patient request if the prescription is for a schedule II opi... Start Date: 09/20/21 Stop Date: 01/18/22 Status: Ordered fexofenadine 180 mg oral tablet 1 tablet = 180 mg, By Mouth, Daily, # 30 tablet, 3 Refills, Maintenance, 09/21/21 15:08:00 EST, Tablet, [facility]/pharmacy #2071, Partial fill upon patient request if the prescription is for a schedule II opioid drug., 165.1, cm, 09/20/21 14:28:00 EST, Height Start Date: 09/21/21 Status: Ordered Flovent Diskus 100 mcg/inh inhalation powder 1 puffs, Inhalation, 2 times a day, # 60 Unknown, 0 Refills, Maintenance, 04/16/21 19:52:00 EDT, [facility], 30, INHALE 1 PUFF BY MOUTH TWICE [...] FOR DIZZINESS, # 30 tablet, 2 Refills, [facility] 02309, 165.1, cm, 08/14/21 14:44:00 EDT, Height Start [...] NOT CRUSH OR CHEW., # 30 tablet, 2 Refills, Maintenance, 01/05/22 14:37:00 EST, [facility]/pharmacy #2071, 165.1, cm, 10/25/21 10:10:00 EST, Height Start Date: 01/05/22 Status: Ordered Nebulizer/Compressor See Instructions, # 1 each, Refills 0, Tot. Refills 0, Maintenance, for PRN albuterol inhaled, 11/21/17 16:27:13, Compound Start Date: 11/21/17 Status: Ordered omeprazole 20 mg oral enteric coated capsule 1 capsule, By Mouth, Daily, # 30 capsule, 2 Refills, [facility], 165.1, cm, 09/20/21 14:28:00 EST, Height Start Date: 10/05/21 Status: Ordered Plaquenil 200 mg oral tablet 400 mg, 2, tablet, By Mouth, Daily, Refills 0, Maintenance, 11/28/16 10:20:10 EST Start Date: 11/28/16 Status: Ordered pregabalin 150 mg oral capsule 1 capsule = 150 mg, By Mouth, 2 times a day, # 180 capsule, 1 Refills, Maintenance, 02/02/22 14:07:00 EDT, Capsule, [facility]/pharmacy #2071, Partial fill upon patient request if the prescription is for a schedule II opioid drug., 165.1, cm, 02/02/22 13:29:... Start Date: 02/02/22 Status: Ordered riboflavin 400 mg oral capsule 1 capsule = 400 mg, By Mouth, Daily, # 100 capsule, 2 Refills, Maintenance, 09/12/20 18:13:00 EST, Capsule, [facility]/pharmacy #2071, 165.1, cm, 05/10/20 10:01:00 EDT, Height, [...] tablet, 1 Refills, Maintenance, 08/17/21 15:39:00 EDT, [facility]/pharmacy #2071, 165.1, cm, 08/14/21 14:44:00 EDT, Height Start Date: 08/17/21 Status: Ordered Symbicort 80mcg/4.5mcg Inhaler See Instructions, PRN, 1 puff 2 x per day BRand name covered by [facility], # 1 each, Refills 6, Tot. Refills 6, Maintenance, 09/29/21 9:04:00 EST, Instructions Replace Required Details Aerosol, Route to Pharmacy Electronically, [id number]... Start Date: 09/29/21 Status: Ordered Ventolin 90 [...] Refills, Maintenance, 09/20/21 15:14:00 EST, Chew Tablet, [facility]/pharmacy #2071, Partial fill upon patient request if the prescription is for a schedule II opioid drug., 165.1, c... Start Date: 09/20/21 Stop Date: 05/18/22 Status: Ordered Problem List Condition Effective Dates [...] Small fiber neuropathy, bila teral legs(Confirmed) Active Obese class I(Confirmed) Active Obesity(Confirmed) Active Obstructive sleep apnea (AIRAM ), on CPAP(Confirmed) Active *BHN/BHCP/CP-Nicolasaavril RichHbdkyne-[phone]/[facility], active care coordination(Confirmed) Active Sjogren's syndrome(Confirmed) Active Smoker, 5-10 cigarettes per day since age 16. Quit once for 2.5 years(Confirmed) Active Systemic lupus(Confirmed) Active Chronic urticaria(Confirmed) Active Vertigo(Confirmed) Active Social History Social History Type Response Tobacco Started at age: 13 Y ears. Sex Female
--- OUTSIDE RECORDS SUMMARY | 2024-09-07 13:54 | XMS_ITS | Continuity of Care Document ---
Author Organization [facility] Theresa n[facility] Address [address], [address] [place] [address]- Care Team Providers Care Usability Engineer Name Role Phone Ashley Faria MD Primary Care Physician Encounter [facility] Date(s): 02/02/22 - 02/09/22 [facility] Cordeleamado BrownleeBiz360s [facility] [address]th [place] [address]- Attending Physician: Melba Joshi MD Referring Physician: Ashley Faria MD Allergies, Adverse Reactions, Alerts No Known [...] 5 01/28/13 Given 1Result Comment: received at [facility] on [facility] in [place] 2Admin Note: flulaval vis given vis date 05/05/2012 3Result Comment: received 2nd dose at [facility] 4Result Comment: received at [facility] 5Admin Note: VIS GIVEN VIS DATE 11/27/2011 Medications acetaminophen 500 mg oral tablet 2 tablet, By Mouth, Every 8 hours, PRN NEEDED FOR PAIN, # 100 tablet, 3 Refills, [facility] ST[facility] 78132, 165.1, cm, 09/20/21 14:28:00 EST, Height Start Date: 10/10/21 Status: Ordered albuterol 0.083% inhalation solution 3 mL = 2.5 mg, Neb, Every 6 hours, PRN Wheezing/Shortness of Breath, # 360 mL, 2 Refills, Maintenance, 09/20/21 15:13:00 EST, [facility]/pharmacy #1, 165.1, cm, 09/20/21 14:28:00 EST, Height Start Date: 09/20/21 Status: Ordered albuterol CFC free 90 mcg/inh inhalation aerosol 1, puffs, Inhalation, 4 times a day, PRN, # 8 Gm, Refills 11, Tot. Refills 11, Maintenance, 07/21/21 17:07:00 EDT, Aerosol, Route to Pharmacy Electronically, [id number], [facility]/pharmacy #2070, 165.1, cm, 03/22/21 14:17:00 EDT, H... Start Date: 07/21/21 Status: Ordered Wsojh-Jwvduz-Zqga 300 mg oral capsule 1 capsule, By Mouth, 2 times a day, OTC N/C., # 60 capsule, 5 Refills, Maintenance, 08/17/21 15:40:00 EDT, [facility]/pharmacy #1, 165.1, cm, 08/14/21 14:44:00 EDT, Height Start Date: 08/17/21 Status: Ordered amitriptyline 10 mg oral tablet 1, tablet, By Mouth, Daily at bedtime, # 90 tablet, Refills 3, Tot. Refills 3, Maintenance, 08/14/21 15:13:00 EDT, Route to Pharmacy Electronically, [facility]/pharmacy #1, 165.1, cm, 08/14/21 14:44:00 EDT, Height [...] 02/02/20 11:42:00 EDT, Route to Pharmacy Electronically, [facility]/pharmacy #2071, 165.1, cm, 01/07/20 14:51:00 EST, [...] Refills, Maintenance, 08/14/21 15:27:00 EDT, Chew Tablet, [facility]/pharmacy #2071, Partial fill upon [...] 09/20/21 15:12:00 EST, Route to Pharmacy Electronically, [facility]/pharmacy #2071, Partial fill upon patient request if the prescription is for a schedule II opi... Start Date: 09/20/21 Stop Date: 01/18/22 Status: Ordered fexofenadine 180 mg oral tablet 1 tablet = 180 mg, By Mouth, Daily, # 30 tablet, 3 Refills, Maintenance, 09/21/21 15:08:00 EST, Tablet, [facility]/pharmacy #2071, Partial fill upon patient request if the prescription is for a schedule II opioid drug., 165.1, cm, 09/20/21 14:28:00 EST, Height Start Date: 09/21/21 Status: Ordered Flovent Diskus 100 mcg/inh inhalation powder 1 puffs, Inhalation, 2 times a day, # 60 Unknown, 0 Refills, Maintenance, 04/16/21 19:52:00 EDT, [facility] STORE [facility], 30, INHALE 1 PUFF BY MOUTH TWICE [...] # 30 tablet, 2 Refills, [facility], 165.1, cm, 08/14/21 14:44:00 EDT, Height Start [...] tablet, 2 Refills, Maintenance, 01/05/22 14:37:00 EST, [facility]/pharmacy #2071, 165.1, cm, 10/25/21 10:10:00 EST, Height Start Date: 01/05/22 Status: Ordered Nebulizer/Compressor See Instructions, # 1 each, Refills 0, Tot. Refills 0, Maintenance, for PRN albuterol inhaled, 11/21/17 16:27:13, Compound Start Date: 11/21/17 Status: Ordered omeprazole 20 mg oral enteric coated capsule 1 capsule, By Mouth, Daily, # 30 capsule, 2 Refills, [facility], 165.1, cm, 09/20/21 14:28:00 EST, Height Start Date: 10/05/21 Status: Ordered Plaquenil 200 mg oral tablet 400 mg, 2, tablet, By Mouth, Daily, Refills 0, Maintenance, 11/28/16 10:20:10 EST Start Date: 11/28/16 Status: Ordered pregabalin 150 mg oral capsule 1 capsule = 150 mg, By Mouth, 2 times a day, # 180 capsule, 1 Refills, Maintenance, 02/02/22 14:07:00 EDT, Capsule, [facility]/pharmacy #2071, Partial fill upon patient request if the prescription is for a schedule II opioid drug., 165.1, cm, 02/02/22 13:29:... Start Date: 02/02/22 Status: Ordered riboflavin 400 mg oral capsule 1 capsule = 400 mg, By Mouth, Daily, # 100 capsule, 2 Refills, Maintenance, 09/12/20 18:13:00 EST, Capsule, [facility]/pharmacy #2071, 165.1, cm, 05/10/20 [...] tablet, 1 Refills, Maintenance, 08/17/21 15:39:00 EDT, [facility], 165.1, cm, 08/14/21 14:44:00 EDT, Height Start Date: 08/17/21 Status: Ordered Symbicort 80mcg/4.5mcg Inhaler See Instructions, PRN, 1 puff 2 x per day BRand name covered by [facility], # 1 each, Refills 6, Tot. Refills 6, Maintenance, 09/29/21 9:04:00 EST, Instructions Replace Required Details Aerosol, Route to Pharmacy Electronically, [id number]... Start Date: 09/29/21 Status: Ordered Ventolin 90 [...] Refills, Maintenance, 09/20/21 15:14:00 EST, Chew Tablet, [id number], Partial fill upon patient request if [...] sleep apnea (AIRAM ), on CPAP(Confirmed) Active *BHN/BHCP/BENNETTNicolasa RichWsliiwg-[phone]/Health [facility], active care coordination(Confirmed) Active Sjogren's syndrome(Confirmed) Active Smoker, 5-10 cigarettes per day since age 16. Quit once for 2.5 years(Confirmed) Active Systemic lupus(Confirmed) Active Chronic urticaria(Confirmed) Active Vertigo(Confirmed) Active Social History Social History Type Response Tobacco Started at age: 13 Y ears. Sex Female
--- OUTSIDE RECORDS SUMMARY | 2024-09-07 13:54 | XMS_ITS | Continuity of Care Document ---
Author Organization [facility] Address [address] [place] [phone]- Care Team Providers Care Media Professional Name Role Phone Giana MEHTA, Ashley Primary Care Physician Encounter [facility] Date(s): 10/25/21 - 11/24/21 [facility] [address] [place] [id number]- Attending Physician: Sosa Joy Admitting Physician: Sosa Joy Referring Physician: AdmtrSosa Allergies, Adverse Reactions, Alerts [...] 5 01/28/13 Given 1Result Comment: received at [facility] on [facility] in [place] 2Admin Note: flulaval vis given vis date 05/05/2012 3Result Comment: received 2nd dose at [facility] 4Result Comment: received at [facility] 5Admin Note: VIS GIVEN VIS DATE 11/27/2011 Medications acetaminophen 500 mg oral tablet 2 tablet, By Mouth, Every 8 hours, PRN NEEDED FOR PAIN, # 100 tablet, 3 Refills, [facility] STORE [id number], 165.1, cm, 09/20/21 14:28:00 EST, Height Start Date: 10/10/21 Status: Ordered albuterol 0.083% inhalation solution 3 mL = 2.5 mg, Neb, Every 6 hours, PRN Wheezing/Shortness of Breath, # 360 mL, 2 Refills, Maintenance, 09/20/21 15:13:00 EST, [facility]/pharmacy #1, 165.1, cm, 09/20/21 14:28:00 EST, Height Start Date: 09/20/21 Status: Ordered albuterol CFC free 90 mcg/inh inhalation aerosol 1, puffs, Inhalation, 4 times a day, PRN, # 8 Gm, Refills 11, Tot. Refills 11, Maintenance, 07/21/21 17:07:00 EDT, Aerosol, Route to Pharmacy Electronically, [id number], [facility]/pharmacy #[id number], 165.1, cm, 03/22/21 14:17:00 EDT, H... Start Date: 07/21/21 Status: Ordered Hxafg-Kdynrt-Hkjn 300 mg oral capsule 1 capsule, By Mouth, 2 times a day, OTC N/C., # 60 capsule, 5 Refills, Maintenance, 08/17/21 15:40:00 EDT, [facility]/pharmacy #1, 165.1, cm, 08/14/21 14:44:00 EDT, Height Start Date: 08/17/21 Status: Ordered amitriptyline 10 mg oral tablet 1, tablet, By Mouth, Daily at bedtime, # 90 tablet, Refills 3, Tot. Refills 3, Maintenance, 08/14/21 15:13:00 EDT, Route to Pharmacy Electronically, [facility]/pharmacy #1, 165.1, cm, 08/14/21 14:44:00 EDT, Height [...] 02/02/20 11:42:00 EDT, Route to Pharmacy Electronically, [facility]/pharmacy #[id number], 165.1, cm, 01/07/20 14:51:00 EST, Height, [...] Refills, Maintenance, 08/14/21 15:27:00 EDT, Chew Tablet, [facility]/pharmacy #[id number], Partial fill upon patient request if [...] 09/20/21 15:12:00 EST, Route to Pharmacy Electronically, [facility]/pharmacy #[id number], Partial fill upon patient request if the prescription is for a schedule II opi... Start Date: 09/20/21 Stop Date: 01/18/22 Status: Ordered fexofenadine 180 mg oral tablet 1 tablet = 180 mg, By Mouth, Daily, # 30 tablet, 3 Refills, Maintenance, 09/21/21 15:08:00 EST, Tablet, [facility]/pharmacy #[id number], Partial fill upon patient request if the prescription is for a schedule II opioid drug., 165.1, cm, 09/20/21 14:28:00 EST, Height Start Date: 09/21/21 Status: Ordered Flovent Diskus 100 mcg/inh inhalation powder 1 puffs, Inhalation, 2 times a day, # 60 Unknown, 0 Refills, Maintenance, 04/16/21 19:52:00 EDT, [facility] STORE 18122, 30, INHALE 1 PUFF BY MOUTH TWICE [...] # 30 tablet, 2 Refills, [facility], 165.1, cm, 08/14/21 14:44:00 EDT, Height Start [...] Refills, Maintenance, 02/01/21 16:14:00 EDT, [facility], 165.1, cm, 12/08/20 15:27:00 EST, Height, 86.4, kg, 08/10/19 14:42:00 EDT, Dry Weight Start Date: 02/01/21 Status: Ordered Nebulizer/Compressor See Instructions, # 1 each, Refills 0, Tot. Refills 0, Maintenance, for PRN albuterol inhaled, 11/21/17 16:27:13, Compound Start Date: 11/21/17 Status: Ordered omeprazole 20 mg oral enteric coated capsule 1 capsule, By Mouth, Daily, # 30 capsule, 2 Refills, [facility], 165.1, cm, 09/20/21 14:28:00 EST, Height Start [...] 2 Refills, Maintenance, 09/12/20 18:13:00 EST, Capsule, [facility]/pharmacy #[id number], 165.1, cm, 05/10/20 10:01:00 EDT, Height, [...] Required Details Aerosol, Route to Pharmacy Electronically, [id number]... Start Date: 09/29/21 Status: Ordered Ventolin 90 [...] Refills, Maintenance, 09/20/21 15:14:00 EST, Chew Tablet, [facility]/pharmacy #[id number], Partial fill upon patient request if the [...] apnea (AIRAM ), on CPAP(Confirmed) Active *BHN/BHCP/Leodan [phone]/[facility], active care coordination(Confirmed) Active Sjogren's syndrome(Confirmed) Active Smoker, 5-10 cigarettes per day since age 16. Quit once for 2.5 years(Confirmed) Active Systemic lupus(Confirmed) Active Chronic urticaria(Confirmed) Active Vertigo(Confirmed) Active Social History Social History Type Response Tobacco Started at age: 13 Y ears. Sex Female
--- OUTSIDE RECORDS SUMMARY | 2024-09-07 13:54 | XMS_ITS | Continuity of Care Document ---
Author Organization [facility] Address [address] [place] [id number]- Care Team Providers Care Associate Professor Of Management Name Role Phone Broderick Kidd MD Primary Care Physician [phone] Encounter [facility] Date(s): 07/30/23 - 08/29/23 [facility] [address] [place] [id number]- [place] Allergies, Adverse Reactions, Alerts No Known Medication Allergies Immunizations Given and Recorded Vaccine Date Status Refusal Reason tetanus/diphtheria/pertussis, acel(Tdap) 04/25/23 Given tetanus/diphtheria/pertussis, acel(Tdap) 1 01/28/13 Given [id number] bivalent booster vax 01/03/23 Recorded influenza virus vaccine, inactivated 08/22/22 Give n influenza virus vaccine, inactivated 09/20/21 Give n influenza virus vaccine, inactivated 10/07/20 Zachery rded influenza virus vaccine, inactivated 2 09/07/20 Re corded influenza virus vaccine, inactivated 09/22/19 Give n influenza virus vaccine, inactivated 12/15/18 Give n influenza virus vaccine, inactivated 12/23/17 Give n influenza virus vaccine, inactivated 09/05/16 Give n influenza virus vaccine, inactivated 10/25/15 Give n influenza virus vaccine, inactivated 09/22/14 Give n influenza virus vaccine, inactivated 07/15/13 Give n influenza virus vaccine, inactivated 3 01/28/13 Gi diane influenza virus vaccine, inactivated 09/04/11 Zachery rded SARS-CoV-2 (COVID-19) mRNA-1273 vaccine 09/20/21 R ecorded SARS-CoV-2 (COVID-19) mRNA-1273 vaccine 4 01/24/21 Recorded SARS-CoV-2 (COVID-19) mRNA-1273 vaccine 5 12/27/20 Recorded pneumococcal 23-valent vaccine 10/25/15 Given hepatitis B adult vaccine 03/08/09 Recorded hepatitis B adult vaccine 11/09/08 Recorded hepatitis B adult vaccine 09/29/08 Recorded tetanus-diphtheria toxoids (Td) 07/28/08 Recorded Measles/Mumps/Rubella Virus Vaccine 07/05/08 Recor ded 1Admin Note: VIS GIVEN VIS DATE 11/27/2011 2Result Comment: received at [facility] on [facility] in [place] 3Admca Note: flulaval vis given vis date 05/05/2012 4Result Comment: received 2nd dose at [facility] 5Result Comment: received at [facility] Medications acetaminophen 500 mg oral tablet 2 tablet, By Mouth, Every 8 hours, PRN NEEDED FOR PAIN, # 100 tablet, 3 Refills, Maintenance, 04/26/23 23:48:00 EDT, [facility] STORE [id number], 165, cm, 04/25/23 8:59:00 EDT, Height, 100, kg, 04/04/23 16:15:00 EDT, Dry Weight Start Date: 04/26/23 Status: Ordered albuterol 0.083% inhalation solution 1 vials, Inhalation, Every 6 hours, PRN NEEDED FOR WHEEZING/SHORTNESS OF BREATH, # 300 mL, 2 Refills, Maintenance, 10/19/22 10:14:00 EST, [facility] ST[facility] 39844, 165.1, cm, 09/18/22 9:21:00 EST, Height Start Date: 10/19/22 Status: Ordered Pkbif-Quayvv-Mumo 300 mg oral capsule 1 capsule, By Mouth, 2 times a day, # 60 capsule, 5 Refills, Maintenance, 05/12/23 20:20:00 EDT, [facility]/pharmacy #[id number], 165, cm, 05/08/23 10:12:00 EDT, Height, 100, kg, 04/04/23 16:15:00 EDT, Dry Weight Start Date: 05/12/23 Status: Ordered amitriptyline 10 mg oral tablet 1, tablet, By Mouth, Daily at bedtime, # 90 tablet, Refills 0, Maintenance, 08/13/23 13:34:00 EDT, Route to Pharmacy Electronically, [facility] STORE [facility]05, 165, cm, 06/03/23 9:52:00 EDT, Height, 100, kg, 04/04/23 16:15:00 EDT, Dry Weight Start Date: 08/13/23 Status: Ordered ammonium lactate 5% topical lotion 1 application, Topically, 2 times a day, PRN Dry Skin, apply and rub in well, # 120 Gm, 0 Refills, Maintenance, 12/05/22 17:09:00 EST, Lotion, [facility]/pharmacy #[id number], Partial fill upon patient request ifthe prescription is for a schedule II opioid drug.,... Start Date: 12/05/22 Stop Date: 12/19/22 Status: Ordered Bilateral Circaid lower leg Juxtafits Bilateral Circaid lower leg Juxtafits, See Instructions, # 4 each, Refills 0, Tot. Refills 0, Maintenance, 2 pair Bilateral Circaid lower leg Juxtafits dx bilateral lower extremity lympahdema 189.0, 06/12/23 11:05:00 EDT, Supply Start Date: 06/12/23 Status: Ordered Calcium 250 mg + Vitamin [...] 12:11:42 EST Start Date: 10/15/18 Status: Ordered Compression Stockings See Instructions, # 2 each, Refills 1, Tot. Refills 1, Acute 05/08/24 11:45:00 EDT, surgical, calf length 20-30 mm Hg ONE pair for lower extermity edema R22.43, 05/08/23 11:44:00 EDT, Supply Start Date: 05/08/23 Stop Date: 05/08/24 Status: Ordered cyanocobalamin 1000 mcg oral tablet 1,000 mcg, 1, tablet, By Mouth, Daily, # 90 tablet, Refills 1, Tot. Refills 1, Maintenance, 11/23/22 9:13:00 EST, Route to Pharmacy Electronically, [facility]/pharmacy #[id number], Partial fill upon patient request if the prescription is for a schedule II opioid d... Start Date: 11/23/22 Status: Ordered Cymbalta 30 mg oral enteric coated capsule 1 capsule = 30 mg, By Mouth, 2 times a day, 0 Refills, Maintenance, 08/10/19 15:02:15 EDT Start Date: 08/10/19 Status: Ordered diclofenac 1% topical gel See Instructions, APPLY TOPICALLY 4 TIMES A DAY, NEEDED NEUROPATHIC PAIN, # 100 Gm, 2 Refills, Maintenance, 07/16/23 6:00:00 EDT, [facility], 25, APPLY TOPICALLY 4 TIMES A DAY, NEEDED NEUROPATHIC PAIN, 165, cm, 06/03/23 9:52:00 EDT, Height,... Start Date: 07/16/23 Status: Ordered famotidine 20 mg oral tablet 1, tablet, By Mouth, 2 times a day, # 60 tablet, Refills 5, Tot. Refills 5, Maintenance, 02/27/23 10:38:00 EDT, Route to Pharmacy Electronically, [facility]/pharmacy #[id number], 168, cm, 01/15/23 7:16:00 EDT, Height, 99.4, kg, 01/15/23 7:16:00 EDT, Dry Weight Start Date: 02/27/23 Status: Ordered HydrOXYzine = 25 mg, By Mouth, 2 times a day, PRN as needed for itching, 0 Refills, Maintenance, 11/28/16 10:21:04 Start Date: 11/28/16 Status: Ordered lidocaine 5% topical film 1 patch, Topically, Daily, PRN NEEDED FOR PAIN MILD, REMOVE AFTER 12 HOURS, # 30 patch, 0 Refills, Maintenance, 02/05/23 23:52:00 EDT, [facility], 30, APPLY 1 PATCH TOPICALLY DAILY,X30 DAYS NEEDED FOR PAIN MILD, REMOVE AFTER 12 HOURS, 168,... Start Date: 02/05/23 Status: Ordered loratadine 10 mg oral tablet 1, tablet, By Mouth, 2 times a day, # 60 tablet, Refills 0, Maintenance, 12/31/22 14:48:00 EST, Route to Pharmacy Electronically, [facility] STORE 30541, 165.1, cm, 12/05/22 15:21:00 EST, Height Start Date: 12/31/22 Stop Date: 01/30/23 Status: Ordered losartan 50 mg oral tablet 50 mg, 1, tablet, By Mouth, Daily, # 30 tablet, Refills 3, Tot. Refills 3, Maintenance, 05/08/23 10:35:00 EDT, Route to Pharmacy Electronically, [facility]/pharmacy #[id number], Partial fill upon patient request if the prescription is for a schedule II opioid drug... Start Date: 05/08/23 Status: Ordered meclizine 25 mg oral tablet 1 tablet, By Mouth, 2 times a day, PRN NEEDED FOR DIZZINESS, # 60 tablet, 0 Refills, Maintenance, 05/30/23 16:12:00 EDT, [facility], 165, cm, 05/22/23 9:22:00 EDT, Height, 100, kg, 04/04/23 16:15:00 EDT, Dry Weight Start Date: 05/30/23 Status: Ordered Myrbetriq 50 mg oral tablet, extended release 1 tablet, By Mouth, Daily, DO NOT CRUSH OR CHEW., # 30 tablet, 1 Refills, Maintenance, 08/13/23 8:42:00 EDT, [facility], 165, cm, 06/03/23 9:52:00 EDT, Height, 100, kg, 04/04/23 16:15:00 EDT, Dry Weight Start Date: 08/13/23 Status: Ordered naratriptan 2.5 mg oral tablet 1 tablet = 2.5 mg, By Mouth, Daily, PRN for migraine headache, may repeat dose once in 4 hours, # 18 tablet, 1 Refills, Acute 07/07/24 15:56:00 EDT, 07/07/23 15:56:00 EDT, Tablet, [facility]/pharmacy #[id number],Partial fill upon patient request if the prescripti... Start Date: 07/07/23 Stop Date: 07/07/24 Status: Ordered ondansetron 8 mg oral tablet 1 tablet = 8 mg, By Mouth, Daily, PRN Nausea, For bad nausea days., # 30 tablet, 0 Refills, Maintenance, 06/03/23 10:02:00 EDT, Tablet, [facility]/pharmacy #[id number], Partial fill upon patient request if the prescription is for a schedule II opioid drug., 165, c... Start Date: 06/03/23 Status: Ordered PEG-3350 with Electrolytes (Eqv-GoLYTELY) oral powder for reconstitution 240 mL, By Mouth, Every 15 minutes, split prep method 1st half 5 pm evening before , 2nd half 6 hours prior to procedure, # 1 each, 0 Refills, Maintenance, 08/15/23 9:02:00 EDT, [facility]/pharmacy #[id number], Colonoscopy date 09/23/23 ; may substitute any... Start Date: 08/15/23 Status: Ordered Plaquenil 200 mg oral tablet 400 mg, 2, tablet, By Mouth, Daily, Refills 0, Maintenance, 11/28/16 10:20:10 EST Start Date: 11/28/16 Status: Ordered pregabalin 200 mg oral capsule 1 capsule = 200 mg, By Mouth, 2 times a day, # 60 capsule, 5 Refills, Maintenance, 11/22/22 14:08:00 EST, Capsule, [facility]/pharmacy #[id number], Partial fill upon patient request if the prescription is for a schedule II opioid drug., 165.1, cm, 11/22/22 13:38:0... Start Date: 11/22/22 Status: Ordered riboflavin 400 mg oral capsule 1 capsule = 400 mg, By Mouth, Daily, # 100 capsule, 2 Refills, Maintenance, 05/12/23 20:23:00 EDT, Capsule, [facility]/pharmacy #[id number], 165, cm, 05/08/23 10:12:00 EDT, Height, 100, kg, 04/04/23 16:15:00 EDT,Dry Weight Start Date: 05/12/23 Status: Ordered RIBOFLAVIN 400 MG TABLET RIBOFLAVIN [...] 10:10:46, Tablet Start Date: 12/26/15 Status: Ordered Symbicort 80mcg/4.5mcg Inhaler See Instructions, PRN, 1 puff 2 x per day BRand name covered by hne, # 1 each, Refills 6, Tot. Refills 6, Maintenance, 09/29/21 9:04:00 EST, Instructions Replace Required Details Aerosol, Route to Pharmacy Electronically, [id number]... Start Date: 09/29/21 Status: Ordered Ventolin 90 mcg Inhaler 2, puffs, Inhalation, 4 times a day, PRN, Refills 0, Maintenance, 11/26/18 9:56:44 EST Start Date: 11/26/18 Status: Ordered Vitamin B12 500 mcg oral tablet 1 tablet = 500 mcg, By Mouth, Daily, # 90 tablet, 1 Refills, Maintenance, 05/12/23 20:24:00 EDT, Tablet, [facility]/pharmacy #[id number], Partial fill upon patient request if the prescription is for a schedule IIopioid drug., 165, cm, 05/08/23 10:12:00 EDT, Ina... Start Date: 05/12/23 Status: Ordered Vitamin C By Mouth, Daily, 0 Refills, Maintenance, 01/07/19 11:24:12 EST Start Date: 01/07/19 Status: Ordered Problem List Condition Confirmation Course [...] disease (GERD) Confirmed Active Migraines Confirmed Active Mixed urinary incontinence urge and stress (primarily urge) Confirmed Active Lung nodules, bilateral Confirmed Active Small fiber neuropathy, bilateral legs Confirmed Active Obstructive sleep apnea (AIRAM), on CPAP Confirmed Active Obesity severe (BMI 35.0-39.9) with comorbidity Confirmed Active Sjogren's syndrome Confirmed Active Smoker, 5-10 cigarettes per day since age 16. Quit once for 2.5 years Confirmed Active Subclinical hypothyroidism 1 Confirmed Active Systemic lupus Confirmed Active Chronic urticaria Confirmed Active Vertigo Confirmed Active 1Lab 06/03/23 - TSH 5.88, Free T4: 1.13 Social History Social History Type Response Smoking Status 5-9 cigarettes (betw een 1/4 to 1/2 pack)/day in last 30 days entered on: 04/04/23 Sex Female Patient Care team information Care Team Personnel Name: Broderick Kidd MD Position: [facility] Resident Member Role: PCP Address: Address: [address] [place] [address]- Care Team Related Persons Name: MARIO GERARD Address: home [address] [place] [address] Name: CARI GARCÍA Address: home [address], [place] [address] Name: NOELLE MAY
--- OUTSIDE RECORDS SUMMARY | 2024-09-07 13:55 | XMS_ITS | Continuity of Care Document ---
Author Organization [facility] Address [address] [place] [id number]- Care Team Providers Care Software Systems Analyst Name Role Phone Broderick Kidd MD Primary Care Physician [facility]): 09/[facility]/23 - 10/03/23 [facility] [address] [place] [id number] Allergies, Adverse Reactions, Alerts No Known Allergies Immunizations Given and Recorded Vaccine Date Status Refusal Reason influenza virus vaccine, inactivated 09/27/23 Give n influenza virus vaccine, inactivated 08/22/22 Give n influenza virus vaccine, inactivated 09/20/21 Give n influenza virus vaccine, inactivated 10/07/20 Zachery rded influenza virus vaccine, inactivated 1 09/07/20 Re [...] virus vaccine, inactivated 2 01/28/13 Gi diane influenza virus vaccine, inactivated 09/04/11 Zachery rded tetanus/diphtheria/pertussis, acel(Tdap) 04/25/23 Given tetanus/diphtheria/pertussis, acel(Tdap) 3 01/28/13 Given [id number] bivalent booster vax 01/03/23 Recorded SARS-CoV-2 (COVID-19) mRNA-1273 vaccine 09/20/21 R ecorded SARS-CoV-2 (COVID-19) mRNA-1273 vaccine 4 01/24/21 Recorded SARS-CoV-2 (COVID-19) mRNA-1273 vaccine 5 12/27/20 Recorded pneumococcal 23-valent vaccine 10/25/15 Given hepatitis B adult vaccine 03/08/09 Recorded hepatitis B adult vaccine 11/09/08 Recorded hepatitis B adult vaccine 09/29/08 Recorded tetanus-diphtheria toxoids (Td) 07/28/08 Recorded Measles/Mumps/Rubella Virus Vaccine 07/05/08 Recor ded 1Result Comment: received at [facility] on [facility] in [place] 2Admin Note: flulaval vis given vis date 05/05/2012 3Admin Note: VIS GIVEN VIS DATE 11/27/2011 4Result Comment: received 2nd dose at [facility] 5Result Comment: received at [facility] Medications acetaminophen 500 mg oral tablet 2 tablet, By Mouth, Every 8 hours, PRN NEEDED FOR PAIN, # 100 tablet, 3 Refills, Maintenance, 04/26/23 23:48:00 EDT, [facility] STORE [id number], 165, cm, 04/25/23 8:59:00 EDT, Height, 100, kg, 04/04/23 16:15:00 EDT, Dry Weight Start Date: 04/26/23 Status: Ordered albuterol 0.083% inhalation solution 1 vials, Inhalation, Every 6 hours, PRN NEEDED FOR WHEEZING/SHORTNESS OF BREATH, # 300 mL, 2 Refills, Maintenance, 10/19/22 10:14:00 EST, [id number], 165.1, cm, 09/18/22 9:21:00 EST, Height Start Date: 10/19/22 Status: Ordered Ijexe-Ktnwkx-Qrmd 300 mg oral capsule 1 capsule, By Mouth, 2 times a day, # 60 capsule, 5 Refills, Maintenance, 05/12/23 20:20:00 EDT, [facility]/pharmacy #[id number], 165, cm, 05/08/23 10:12:00 EDT, Height, 100, kg, 04/04/23 16:15:00 EDT, Dry Weight Start Date: 05/12/23 Status: Ordered amitriptyline 10 mg oral tablet 1, tablet, By Mouth, Daily at bedtime, # 90 tablet, Refills 0, Maintenance, 08/13/23 13:34:00 EDT, Route to Pharmacy Electronically, [facility] STORE [id number], 165, cm, 06/03/23 9:52:00 EDT, Height, 100, kg, 04/04/23 16:15:00 EDT, Dry Weight Start Date: 08/13/23 Status: Ordered ammonium lactate 5% topical lotion 1 application, Topically, 2 times a day, PRN Dry Skin, apply and rub in well, # 120 Gm, 0 Refills, Maintenance, 12/05/22 17:09:00 EST, Lotion, [facility]/pharmacy #[id number], Partial fill upon patient request ifthe prescription [...] 11/23/22 9:13:00 EST, Route to Pharmacy Electronically, [facility]/pharmacy #[id number], Partial fill upon [...] Gm, 2 Refills, Maintenance, 07/16/23 6:00:00 EDT, [facility] STORE 00656, 25, APPLY TOPICALLY 4 TIMES A DAY, NEEDED NEUROPATHIC PAIN, 165, cm, 06/03/23 9:52:00 EDT, Height,... Start Date: 07/16/23 Status: Ordered famotidine 20 mg oral tablet 1, tablet, By Mouth, 2 times a day, # 180 tablet, Refills 1, Tot. Refills 1, Maintenance, 09/03/23 15:24:00 EDT, Route to Pharmacy Electronically, [facility]/pharmacy #[id number], 165, cm, 06/03/23 9:52:00 EDT, Height, 100, kg, 04/04/23 16:15:00 EDT, Dry Weight Start Date: 09/03/23 Status: Ordered hydrochlorothiazide 25 mg oral tablet 25 mg, 1, tablet, By Mouth, Daily, # 30 tablet, Refills 2, Tot. Refills 2, Maintenance, 09/27/23 11:20:00 EST, Route to Pharmacy Electronically, [facility]/pharmacy #[id number], Partial fill upon patient request if the prescription is for a schedule II opioid drug... Start Date: 09/27/23 Status: Ordered HydrOXYzine = 25 mg, By Mouth, 2 times a day, PRN as needed for itching, 0 Refills, Maintenance, 11/28/16 10:21:04 Start Date: 11/28/16 Status: Ordered lidocaine 5% topical film 1 patch, Topically, Daily, PRN NEEDED FOR PAIN MILD, REMOVE AFTER 12 HOURS, # 30 patch, 0 Refills, Maintenance, 02/05/23 23:52:00 EDT, [facility] STORE [id number], 30, APPLY 1 PATCH TOPICALLY DAILY,X30 DAYS NEEDED FOR PAIN MILD, REMOVE AFTER 12 HOURS, 168,... Start Date: 02/05/23 Status: Ordered loratadine 10 mg oral tablet 1, tablet, By Mouth, 2 times a day, # 60 tablet, Refills 0, Maintenance, 12/31/22 14:48:00 EST, Route to Pharmacy Electronically, [facility] STORE [id number], 165.1, cm, 12/05/22 15:21:00 EST, Height Start Date: 12/31/22 Stop Date: 01/30/23 Status: Ordered losartan 50 mg oral tablet 50 mg, 1, tablet, By Mouth, Daily, # 90 tablet, Refills 1, Tot. Refills 1, Maintenance, 10/02/23 13:31:00 EST, Route to Pharmacy Electronically, [facility]/pharmacy #[id number], Partial fill upon patient request if the prescription is for a schedule II opioid drug... Start Date: 10/02/23 Status: Ordered meclizine 25 mg oral tablet 1 tablet, By Mouth, 2 times a day, PRN NEEDED FOR DIZZINESS, # 60 tablet, 0 Refills, Maintenance, 05/30/23 16:12:00 EDT, [facility] STORE [id number], 165, cm, 05/22/23 9:22:00 EDT, Height, 100, kg, 04/04/23 16:15:00 EDT, Dry Weight Start Date: 05/30/23 Status: Ordered Myrbetriq 50 mg oral tablet, extended release 1 tablet, By Mouth, Daily, DO NOT CRUSH OR CHEW., # 90 tablet, 1 Refills, Maintenance, 09/19/23 16:25:00 EST, [facility]/pharmacy #[id number], 165, cm, 09/12/23 13:12:00 EST, Height, 100, kg, 04/04/23 16:15:00 EDT, Dry Weight Start Date: 09/19/23 Status: Ordered naratriptan 2.5 mg oral tablet 1 tablet = 2.5 mg, By Mouth, Daily, PRN for migraine headache, may repeat dose once in 4 hours, # 18 tablet, 1 Refills, Acute 07/07/24 15:56:00 EDT, 07/07/23 15:56:00 EDT, Tablet, [facility]/pharmacy #[id number],Partial fill upon patient request if the prescripti... Start Date: 07/07/23 Stop Date: 07/07/24 Status: Ordered ondansetron 8 mg oral tablet 1 tablet, By Mouth, Daily, PRN NEEDED FOR NAUSEA AND VOMITING, # 30 tablet, 0 Refills, Maintenance, 09/23/23 10:53:00 EST, [facility], 165, cm, 09/12/23 13:12:00 EST, Height, 100, kg, 04/04/23 16:15:00 EDT, Dry Weight Start Date: 09/23/23 Status: Ordered Plaquenil 200 mg oral tablet 400 mg, 2, tablet, By Mouth, Daily, Refills 0, Maintenance, 11/28/16 10:20:10 EST Start Date: 11/28/16 Status: Ordered predniSONE 10 mg oral tablet 0 Refills, Maintenance, 09/12/23 13:15:00 EST, Partial fill upon patient request if the prescription is for a schedule II opioid drug. Start Date: 09/12/23 Status: Ordered pregabalin 200 mg oral capsule 1 capsule = 200 mg, By Mouth, 2 times a day, # 60 capsule, 5 Refills, Maintenance, 11/22/22 14:08:00 EST, Capsule, [facility]/pharmacy #[id number], Partial fill upon patient request if the prescription is for a schedule II opioid drug., 165.1, cm, 11/22/22 13:38:0... Start Date: 11/22/22 Status: Ordered riboflavin 400 mg oral capsule 1 capsule = 400 mg, By Mouth, Daily, # 100 capsule, 2 Refills, Maintenance, 05/12/23 20:23:00 EDT, [facility]apsule, [id number], 165, cm, 05/08/23 10:12:00 EDT, Height, [...] x per day BRand name covered by [facility], # 1 each, Refills 6, Tot. Refills 6, Maintenance, 09/29/21 9:04:00 EST, Instructions Replace Required Details Aerosol, Route to Pharmacy Electronically, [id number]... Start Date: 09/29/21 Status: Ordered Ventolin 90 mcg Inhaler 2, puffs, Inhalation, 4 times a day, PRN, Refills 0, Maintenance, 11/26/18 9:56:44 EST Start Date: 11/26/18 Status: Ordered Vitamin B-12 500 mcg oral tablet 1 tablet = 500 mcg, By Mouth, Daily, # 90 tablet, 1 Refills, Maintenance, 09/11/23 9:07:00 EST, Tablet, [facility]/pharmacy #[id number], Partial fill upon patient request if the prescription is for a schedule II opioid drug., 165, cm, 06/03/23 9:52:00 EDT, Height,... Start Date: 09/11/23 Stop Date: 03/09/24 Status: Ordered Vitamin B12 500 mcg oral tablet 1 tablet = 500 mcg, By Mouth, Daily, # 90 tablet, 1 Refills, Maintenance, 05/12/23 20:24:00 EDT, Tablet, [facility]/pharmacy #[id number], Partial fill upon patient request if the prescription is for a schedule IIopioid drug., 165, cm, 05/08/23 10:12:00 EDT, Heigh... Start Date: 05/12/23 Status: Ordered Vitamin C [...] Team Personnel Name: Broderick Kidd MD Position: [facility] Resident Member Role: PCP Address: Address: [address] [place] [address]- Care Team Related Persons Name: MARIO GERARD Address: [address] [place] [address] Name: CARI GARCÍA Address: home [address] [place] [id number] Name: NOELLE MAY
--- OUTSIDE RECORDS SUMMARY | 2024-09-07 13:55 | XMS_ITS | Continuity of Care Document ---
Author Organization [facility] Address [address] [place] [id number]- Care Team Providers Care Food Service Utility Worker Name Role Phone Broderick Kidd MD Primary Care Physician [facility]): [facility]23 - 07/10/23 [facility] [address] [place] [id number] Allergies, Adverse Reactions, Alerts No Known Medication Allergies Immunizations Given and Recorded Vaccine Date Status Refusal Reason tetanus/diphtheria/pertussis, acel(Tdap) 04/25/23 Given tetanus/diphtheria/pertussis, acel(Tdap) 1 01/28/13 Given [id number] bivalent booster vax 01/03/23 Recorded influenza virus [...] VIS DATE 11/27/2011 2Result Comment: received at [facility] on [facility] in [place] 3Admin Note: flulaval vis given vis date 05/05/2012 4Result Comment: received 2nd dose at [facility] 5Result Comment: received at [facility] Medications acetaminophen 500 mg oral tablet 2 tablet, By Mouth, Every 8 hours, PRN NEEDED FOR PAIN, # 100 tablet, 3 Refills, Maintenance, 04/26/23 23:48:00 EDT, [facility], 165, cm, 04/25/23 8:59:00 EDT, Height, 100, kg, 04/04/23 16:15:00 EDT, Dry Weight Start Date: 04/26/23 Status: Ordered albuterol 0.083% inhalation solution 1 vials, Inhalation, Every 6 hours, PRN NEEDED FOR WHEEZING/SHORTNESS OF BREATH, # 300 mL, 2 Refills, Maintenance, 10/19/22 10:14:00 EST, [facility], 165.1, cm, 09/18/22 9:21:00 EST, Height Start Date: 10/19/22 Status: Ordered Jdhxm-Uhrzci-Rijb 300 mg oral capsule 1 capsule, By Mouth, 2 times a day, # 60 capsule, 5 Refills, Maintenance, 05/12/23 20:20:00 EDT, [facility]/pharmacy #[id number], 165, cm, 05/08/23 10:12:00 EDT, Height, 100, kg, 04/04/23 16:15:00 EDT, Dry Weight Start Date: 05/12/23 Status: Ordered amitriptyline 10 mg oral tablet 1, tablet, By Mouth, Daily at bedtime, # 30 tablet, Refills 3, Tot. Refills 3, Maintenance, 05/16/23 10:48:00 EDT, Route to Pharmacy Electronically, [facility]/pharmacy #[id number], 165, cm, 05/08/23 10:12:00 EDT, Height, 100, kg, 04/04/23 16:15:00 EDT, Dry Weight Start Date: 05/16/23 Status: Ordered ammonium lactate 5% topical lotion 1 application, Topically, 2 times a day, PRN Dry Skin, apply and rub in well, # 120 Gm, 0 Refills, Maintenance, 12/05/22 17:09:00 EST, Lotion, [id number], Partial fill upon patient request ifthe [...] 11/23/22 9:13:00 EST, Route to Pharmacy Electronically, [facility]/pharmacy #[id number], Partial fill upon patient request if [...] PAIN, # 100 Gm, 2 Refills, Maintenance, 05/01/23 20:57:00 EDT, [facility] ST[facility] 24661, 25, APPLY TOPICALLY 4 TIMES A DAY, NEEDED NEUROPATHIC PAIN, 165, cm, 04/25/23 8:59:00 EDT, Height... Start Date: 05/01/23 Status: Ordered famotidine 20 mg oral tablet 1, tablet, By Mouth, 2 times a day, # 60 tablet, Refills 5, Tot. Refills 5, Maintenance, 02/27/23 10:38:00 EDT, Route to Pharmacy Electronically, [facility]/pharmacy #[id number], 168, cm, 01/15/23 7:16:00 EDT, Height, [...] patch, 0 Refills, Maintenance, 02/05/23 23:52:00 EDT, [facility] 46697, 30, APPLY 1 PATCH TOPICALLY DAILY,X30 DAYS NEEDED FOR PAIN MILD, REMOVE AFTER 12 HOURS, 168,... Start Date: 02/05/23 Status: Ordered loratadine 10 mg oral tablet 1, tablet, By Mouth, 2 times a day, # 60 tablet, Refills 0, Maintenance, 12/31/22 14:48:00 EST, Route to Pharmacy Electronically, [facility], 165.1, cm, 12/05/22 15:21:00 EST, Height Start Date: 12/31/22 Stop Date: 01/30/23 Status: Ordered losartan 50 mg oral tablet 50 mg, 1, tablet, By Mouth, Daily, # 30 tablet, Refills 3, Tot. Refills 3, Maintenance, 05/08/23 10:35:00 EDT, Route to Pharmacy Electronically, [facility]/pharmacy #[id number], Partial fill upon patient request if the prescription is for a schedule II opioid drug... Start Date: 05/08/23 Status: Ordered meclizine 25 mg oral tablet 1 tablet, By Mouth, 2 times a day, PRN NEEDED FOR DIZZINESS, # 60 tablet, 0 Refills, Maintenance, 05/30/23 16:12:00 EDT, [facility], 165, cm, 05/22/23 9:22:00 EDT, Height, 100, kg, 04/04/23 16:15:00 EDT, Dry Weight Start Date: 05/30/23 Status: Ordered Myrbetriq 50 mg oral tablet, extended release 1 tablet, By Mouth, Daily, DO NOT CRUSH OR CHEW., # 30 tablet, 11 Refills, Maintenance, 07/31/22 16:07:00 EDT, [id number], 165.1, cm, 07/12/22 17:15:00 EDT, Height Start Date: 07/31/22 Status: Ordered naratriptan 2.5 mg oral tablet 1 tablet = 2.5 mg, By Mouth, Daily, PRN for migraine headache, may repeat dose once in 4 hours, # 18 tablet, 1 Refills, Acute 07/07/24 15:56:00 EDT, 07/07/23 15:56:00 EDT, Tablet, [id number] fill upon patient request if the prescripti... Start Date: 07/07/23 Stop Date: 07/07/24 Status: Ordered NuLYTELY with Flavor Packs oral powder for reconstitution 240 mL, By Mouth, Every 10 minutes, May substitute any PEG 3350 solution available SPLIT PREP METHOD, # 1 each, 0 Refills, Maintenance, 01/14/23 17:00:00 EDT, REC Powder, [facility]/pharmacy #[id number], test date 01/15/23, 240 mL By Mouth Every 10 minutes,Instr:M... Start Date: 01/14/23 Status: Ordered ondansetron 8 mg oral tablet 1 tablet = 8 mg, By Mouth, Daily, PRN Nausea, For bad nausea days., # 30 tablet, 0 Refills, Maintenance, 06/03/23 10:02:00 EDT, Tablet, [facility]/pharmacy #[id number], Partial fill upon patient request if the prescription is for a schedule II opioid drug., 165, c... Start Date: 06/03/23 Status: Ordered Plaquenil 200 mg oral tablet 400 mg, 2, tablet, By Mouth, Daily, Refills 0, Maintenance, 11/28/16 10:20:10 EST Start Date: 11/28/16 Status: Ordered pregabalin 200 mg oral capsule 1 capsule = 200 mg, By Mouth, 2 times a day, # 60 capsule, 5 Refills, Maintenance, 11/22/22 14:08:00 EST, Capsule, [facility]/pharmacy #[id number], Partial fill upon patient request if the prescription is for a schedule II opioid drug., 165.1, cm, 11/22/22 13:38:0... Start Date: 11/22/22 Status: Ordered riboflavin 400 mg oral capsule 1 capsule = 400 mg, By Mouth, Daily, # 100 capsule, 2 Refills, Maintenance, 05/12/23 20:23:00 EDT, Capsule, [facility]/pharmacy #[id number], 165, cm, 05/08/23 10:12:00 EDT, Height, [...] Required Details Aerosol, Route to Pharmacy Electronically, [id number]... Start Date: 09/29/21 Status: Ordered Ventolin 90 mcg Inhaler 2, puffs, Inhalation, 4 times a day, PRN, Refills 0, Maintenance, 11/26/18 9:56:44 EST Start Date: 11/26/18 Status: Ordered Vitamin B12 500 mcg oral tablet 1 tablet = 500 mcg, By Mouth, Daily, # 90 tablet, 1 Refills, Maintenance, 05/12/23 20:24:00 EDT, Tablet, [facility]/pharmacy #[id number], Partial fill upon patient request if the [...] Team Personnel Name: Broderick Kidd MD Position: [facility] Resident Member Role: PCP Address: Address: [address] [place] [address]- Care Team Related Persons Name: MARIO GERARD Address: [address] [place] [address] Name: CARI GARCÍA Address: [address] [address] Name: NOELLE MAY
--- OUTSIDE RECORDS SUMMARY | 2024-09-07 13:55 | XMS_ITS | Continuity of Care Document ---
Author Organization [facility] Address [address] [place] [id number]- Care Team Providers Care Network Systems Integrator Name Role Phone Broderick Kidd MD Primary Care Physician [place] [facility] [place]23 [place] 10/12/23 [facility] [address] [place], [place] [address] Attending Physician: Sosa Joy Admitting Physician: AdmSosa jean baptiste Referring Physician: AdmtrSosa Allergies, Adverse Reactions, Alerts No Known Allergies Immunizations Given and Recorded Vaccine Date Status Refusal Reason pneumococcal 20-valent conjugate vaccine 10/11/23 Given influenza virus vaccine, inactivated 09/27/23 Give n [...] 04/25/23 Given tetanus/diphtheria/pertussis, acel(Tdap) 3 01/28/13 Given [id number] bivalent booster vax 01/03/23 Recorded SARS-CoV-2 (COVID-19) [...] 07/05/08 Recor ded 1Result Comment: received at [facility] on [facility] in [place] 2Admin Note: flulaval vis given vis date 05/05/2012 3Admin Note: VIS GIVEN VIS DATE 11/27/2011 4Result Comment: received 2nd dose at [facility] 5Result Comment: received at [facility] Medications acetaminophen 500 mg oral tablet 2 tablet, By Mouth, Every 8 hours, PRN NEEDED FOR PAIN, # 100 tablet, 3 Refills, Maintenance, 10/11/23 11:48:00 EST, [facility]/pharmacy #[id number], 165, cm, 09/27/23 10:21:00 EST, Height, 100, kg, 04/04/23 16:15:00 EDT, Dry Weight Start Date: 10/11/23 Status: Ordered albuterol 0.083% inhalation solution 1 vials, Inhalation, Every 6 hours, PRN NEEDED FOR WHEEZING/SHORTNESS OF BREATH, # 300 mL, 2 Refills, Maintenance, 10/19/22 10:14:00 EST, [facility] [id number], 165.1, cm, 09/18/22 9:21:00 EST, Height Start Date: 10/19/22 Status: Ordered albuterol CFC free 90 mcg/inh inhalation aerosol 2, puffs, Inhalation, Every 6 hours, PRN, # 1 each, Refills 3, Tot. Refills 3, Maintenance, 10/11/23 11:53:00 EST, Route to Pharmacy Electronically, [id number], [facility]/pharmacy#[id number], 165, cm, 09/27/23 10:21:00 EST, Height, 100,... Start Date: 10/11/23 Status: Ordered Mojeu-Oacbuv-Vxsp 300 mg oral capsule 1 capsule, By Mouth, 2 times a day, # 60 capsule, 5 Refills, Maintenance, 05/12/23 20:20:00 EDT, [facility]/pharmacy #[id number], 165, cm, 05/08/23 10:12:00 EDT, Height, 100, kg, 04/04/23 16:15:00 EDT, Dry Weight Start Date: 05/12/23 Status: Ordered amitriptyline 10 mg oral tablet 1, tablet, By Mouth, Daily at bedtime, # 90 tablet, Refills 0, Maintenance, 08/13/23 13:34:00 EDT, Route to Pharmacy Electronically, [id number], 165, cm, 06/03/23 9:52:00 EDT, Height, 100, kg, 04/04/23 16:15:00 EDT, Dry Weight Start Date: 08/13/23 Status: Ordered ammonium lactate 5% topical lotion 1 application, Topically, 2 times a day, PRN Dry Skin, apply and rub in well, # 120 Gm, 0 Refills, Maintenance, 12/05/22 17:09:00 EST, Lotion, [facility]/pharmacy #[id number], Partial fill upon patient request [...] 11/23/22 9:13:00 EST, Route to Pharmacy Electronically, [facility]/pharmacy #[id number], Partial fill upon patient request [...] Gm, 2 Refills, Maintenance, 07/16/23 6:00:00 EDT, [facility] 45858, 25, APPLY TOPICALLY 4 TIMES A DAY, NEEDED NEUROPATHIC PAIN, 165, cm, 06/03/23 9:52:00 EDT, Height,... Start Date: 07/16/23 Status: Ordered famotidine 20 mg oral tablet 1, tablet, By Mouth, 2 times a day, # 180 tablet, Refills 1, Tot. Refills 1, Maintenance, 09/03/23 15:24:00 EDT, Route to Pharmacy Electronically, [facility]/pharmacy #[id number], 165, cm, 06/03/23 9:52:00 EDT, Height, 100, kg, 04/04/23 16:15:00 EDT, Dry Weight Start Date: 09/03/23 Status: Ordered hydrochlorothiazide 25 mg oral tablet 25 mg, 1, tablet, By Mouth, Daily, # 30 tablet, Refills 2, Tot. Refills 2, Maintenance, 09/27/23 11:20:00 EST, Route to Pharmacy Electronically, [facility]/pharmacy #[id number], Partial fill upon patient request [...] Refills, Maintenance, 02/05/23 23:52:00 EDT, [facility], 30, APPLY 1 PATCH TOPICALLY DAILY,X30 DAYS NEEDED FOR PAIN MILD, REMOVE AFTER 12 HOURS, 168,... Start Date: 02/05/23 Status: Ordered loratadine 10 mg oral tablet 1, tablet, By Mouth, 2 times a day, # 60 tablet, Refills 0, Maintenance, 12/31/22 14:48:00 EST, Route to Pharmacy Electronically, [facility], 165.1, cm, 12/05/22 15:21:00 EST, Height Start Date: 12/31/22 Stop Date: 01/30/23 Status: Ordered losartan 50 mg oral tablet 50 mg, 1, tablet, By Mouth, Daily, # 90 tablet, Refills 1, Tot. Refills 1, Maintenance, 10/02/23 13:31:00 EST, Route to Pharmacy Electronically, [facility]/pharmacy #[id number], Partial fill upon patient request if the prescription is for a schedule II opioid drug... Start Date: 10/02/23 Status: Ordered meclizine 25 mg oral tablet 1 tablet, By Mouth, 2 times a day, PRN NEEDED FOR DIZZINESS, # 60 tablet, 0 Refills, Maintenance, 05/30/23 16:12:00 EDT, [facility], 165, cm, 05/22/23 9:22:00 EDT, Height, 100, kg, 04/04/23 16:15:00 EDT, Dry Weight Start Date: 05/30/23 Status: Ordered Myrbetriq 50 mg oral tablet, extended release 1 tablet, By Mouth, Daily, DO NOT CRUSH OR CHEW., # 90 tablet, 1 Refills, Maintenance, 09/19/23 16:25:00 EST, [facility]/pharmacy #[id number], 165, cm, 09/12/23 13:12:00 EST, Height, 100, kg, 04/04/23 16:15:00 EDT, Dry Weight Start Date: 09/19/23 Status: Ordered naratriptan 2.5 mg oral tablet 1 tablet = 2.5 mg, By Mouth, Daily, PRN for migraine headache, may repeat dose once in 4 hours, # 18 tablet, 1 Refills, Acute 07/07/24 15:56:00 EDT, 07/07/23 15:56:00 EDT, Tablet, [facility]/pharmacy #[id number],Partial fill upon patient request if the prescripti... Start Date: 07/07/23 Stop Date: 07/07/24 Status: Ordered ondansetron 8 mg oral tablet 1 tablet, By Mouth, Daily, PRN NEEDED FOR NAUSEA AND VOMITING, # 30 tablet, 0 Refills, Maintenance, 09/23/23 10:53:00 EST, [facility] 312[facility], 165, cm, 09/12/23 13:12:00 EST, Height, 100, [...] 5 Refills, Maintenance, 11/22/22 14:08:00 EST, Capsule, [facility]/pharmacy #[id number], Partial fill upon patient request if the prescription is for a schedule II opioid drug., 165.1, cm, 11/22/22 13:38:0... Start Date: 11/22/22 Status: Ordered riboflavin 400 mg oral capsule 1 capsule = 400 mg, By Mouth, Daily, # 100 capsule, 2 Refills, Maintenance, 05/12/23 20:23:00 EDT, Capsule, [facility]/pharmacy #[id number], 165, cm, 05/08/23 10:12:00 EDT, [...] covered by hne, # 1 each, Refills 11, Tot. Refills 11, Maintenance, 10/11/23 11:50:00 EST, Instructions Replace Required Details Aerosol, Route toPharmacy Electronically, [id number]... Start Date: 10/11/23 Status: Ordered Ventolin 90 mcg Inhaler 2, puffs, Inhalation, 4 times a day, PRN, Refills 0, Maintenance, 11/26/18 9:56:44 EST Start Date: 11/26/18 Status: Ordered Vitamin B-12 500 mcg oral tablet 1 tablet = 500 mcg, By Mouth, Daily, # 90 tablet, 1 Refills, Maintenance, 09/11/23 9:07:00 EST, Tablet, [facility]/pharmacy #[id number], Partial fill upon patient request if the prescription is for a schedule II opioid drug., 165, cm, 06/03/23 9:52:00 EDT, Height,... Start Date: 09/11/23 Stop Date: 03/09/24 Status: Ordered Vitamin B12 500 mcg oral tablet 1 tablet = 500 mcg, By Mouth, Daily, # 90 tablet, 1 Refills, Maintenance, 05/12/23 20:24:00 EDT, Tablet, [id number], Partial fill upon patient request if the [...] Team Personnel Name: Broderick Kidd MD Position: S Resident Member Role: PCP Address: Address: [address] [place] [address] [place] [address]- Care Team Related Persons Name: MARIO GERARD Address: home [address] [place] [address] Name: CARI GARCÍA Address: home [address] [facility] [address] [place] [address] Name: NOELLE MAY
--- OUTSIDE RECORDS SUMMARY | 2024-09-07 13:55 | XMS_ITS | Continuity of Care Document ---
Author Organization [facility] Address [address] [place] [address]- Care Team Providers Care Webbing Tacker Name Role Phone Broderick Kidd MD Primary Care Physician Encounter [facility] [place] Date(s): 03/27/24 - 04/26/24 [facility] [address] [place], [place] [address] Allergies, Adverse Reactions, Alerts No Known Allergies [...] 04/25/23 Given tetanus/diphtheria/pertussis, acel(Tdap) 3 01/28/13 Given [id number] bivalent booster vax 01/03/23 Recorded SARS-CoV-2 (COVID-19) [...] 07/05/08 Recor ded 1Result Comment: received at [facility] on [facility] in [place] 2Admin Note: flulaval vis given vis date 05/05/2012 3Admin Note: VIS GIVEN VIS DATE 11/27/2011 4Result Comment: received 2nd dose at [facility] 5Result Comment: received at [facility] Medications acetaminophen 500 mg oral tablet 2 tablet, By Mouth, Every 8 hours, PRN NEEDED FOR PAIN, # 100 tablet, 3 Refills, Maintenance, 10/11/23 11:48:00 EST, [facility]/pharmacy #[id number], 165, cm, 09/27/23 10:21:00 EST, Height, 100, kg, 04/04/23 16:15:00 EDT, Dry Weight Start Date: 10/11/23 Status: Ordered Ajovy Autoinjector 225 mg/1.5 mL subcutaneous solution = 225 mg, Subcutaneous Injection, Every 28 days, # 1 kit, 5 Refills, Maintenance, 03/16/24 12:10:00EDT, [facility], Partial fill upon patient request if the prescription is for a schedule II opioid drug., 165, cm, 03/10/24 10:03:00 E... Start Date: 03/16/24 Status: Ordered Abyfa-Unantb-Fias 300 mg oral capsule 1 capsule, By Mouth, 2 times a day, # 60 capsule, 5 Refills, Maintenance, 05/12/23 20:20:00 EDT, [facility]/pharmacy #[id number], 165, cm, 05/08/23 10:12:00 EDT, Height, 100, kg, 04/04/23 16:15:00 EDT, Dry Weight Start Date: 05/12/23 Status: Ordered amitriptyline 10 mg oral tablet 1, tablet, By Mouth, Daily at bedtime, # 90 tablet, Refills 1, Tot. Refills 1, Maintenance, 12/27/23 16:05:00 EST, Route to Pharmacy Electronically, [facility]/pharmacy #[id number], 165, cm, 10/11/23 14:32:00 EST, Height, 100, kg, 04/04/23 16:15:00 EDT, Dry Weight Start Date: 12/27/23 Status: Ordered ammonium lactate 5% topical lotion 1 application, Topically, 2 times a day, PRN Dry Skin, apply and rub in well, # 120 Gm, 0 Refills, Maintenance, 12/05/22 17:09:00 EST, Lotion, [facility]/pharmacy #[id number], Partial fill upon patient request ifthe prescription is for a schedule II opioid drug.,... Start Date: 12/05/22 Stop Date: 12/19/22 Status: Ordered Calcium 250 mg + Vitamin [...] EST Start Date: 10/15/18 Status: Ordered [facility] VITAMIN B-12 500 MCG TAB [facility] VITAMIN B-12 500 MCG TAB, 1, tablet, By Mouth, Daily, # 90 tablet, 1 Refills, Maintenance, 03/27/24 11:23:00 EDT, 165, cm, 03/24/24 10:33:00 EDT, Height, 100, kg, 04/04/23 16:15:00 EDT, Dry Weight Start Date: 03/27/24 Status: Ordered cyanocobalamin 1000 mcg oral tablet 1,000 mcg, 1, tablet, By Mouth, Daily, # 90 tablet, Refills 1, Tot. Refills 1, Maintenance, 11/23/22 9:13:00 EST, Route to Pharmacy Electronically, [facility]/pharmacy #[id number], Partial fill upon patient request if the prescription is for a schedule II opioid d... Start Date: 11/23/22 Status: Ordered cyclobenzaprine 5 mg oral tablet 0 Refills, Maintenance, 03/10/24 10:15:00 EDT, Partial fill upon patient request if the prescription is for a schedule II opioid drug. Start Date: 03/10/24 Status: Ordered Cymbalta 30 mg oral enteric coated capsule 1 capsule = 30 mg, By Mouth, 2 times a day, 0 Refills, Maintenance, 08/10/19 15:02:15 EDT Start Date: 08/10/19 Status: Ordered diclofenac 1% topical gel See Instructions, APPLY TOPICALLY 4 TIMES A DAY, NEEDED NEUROPATHIC PAIN, # 100 Gm, 2 Refills, Maintenance, 01/20/24 9:29:00 EDT, [facility], 25, APPLY TOPICALLY 4 TIMES A DAY, NEEDED NEUROPATHIC PAIN, 165, cm, 10/11/23 14:32:00 EST, Height... Start Date: 01/20/24 Status: Ordered famotidine 20 mg oral tablet 1, tablet, By Mouth, 2 times a day, # 180 tablet, Refills 1, Maintenance, 02/24/24 12:56:00 EDT, Route to Pharmacy Electronically, [facility], 165, cm, 02/06/24 9:54:00 EDT, Height, 100, kg, 04/04/23 16:15:00 EDT, Dry Weight Start Date: 02/24/24 Status: Ordered hydrochlorothiazide 25 mg oral tablet 1, tablet, By Mouth, Daily, # 90 tablet, Refills 1, Tot. Refills 1, Maintenance, 12/23/23 17:10:00 EST, Route to Pharmacy Electronically, [facility]/pharmacy #[id number], 165, cm, 10/11/23 14:32:00 EST, Height, 100, kg, 04/04/23 16:15:00 EDT, Dry Weight Start Date: 12/23/23 Status: Ordered HydrOXYzine = 25 mg, By Mouth, 2 times a day, PRN as needed for itching, 0 Refills, Maintenance, 11/28/16 10:21:04 Start Date: 11/28/16 Status: Ordered lidocaine 5% topical film 1 patch, Topically, Daily, PRN NEEDED FOR PAIN MILD, REMOVE AFTER 12 HOURS, # 30 patch, 0 Refills, Maintenance, 02/05/23 23:52:00 EDT, [facility], 30, APPLY 1 PATCH TOPICALLY DAILY,X30 DAYS NEEDED FOR PAIN MILD, REMOVE AFTER 12 HOURS, 168,... Start Date: 02/05/23 Status: Ordered loratadine 10 mg oral tablet 1, tablet, By Mouth, 2 times a day, # 60 tablet, Refills 0, Maintenance, 12/31/22 14:48:00 EST, Route to Pharmacy Electronically, [facility] 401[facility], 165.1, cm, 12/05/22 15:21:00 EST, Height Start Date: 12/31/22 Stop Date: 01/30/23 Status: Ordered losartan 50 mg oral tablet 1 tablet, By Mouth, Daily, # 90 tablet, 1 Refills, Maintenance, 03/10/24 12:55:00 EDT, [facility], 165, cm, 03/10/24 10:03:00 EDT, Height, 100, kg, 04/04/23 16:15:00 EDT, Dry Weight Start Date: 03/10/24 Status: Ordered meclizine 25 mg oral tablet 1 tablet, By Mouth, 2 times a day, PRN NEEDED FOR DIZZINESS, # 60 tablet, 0 Refills, Maintenance, 05/30/23 16:12:00 EDT, [facility] 83[facility], 165, cm, 05/22/23 9:22:00 EDT, Height, 100, kg, 04/04/23 16:15:00 EDT, Dry Weight Start Date: 05/30/23 Status: Ordered Myrbetriq 50 mg oral tablet, extended release 1 tablet, By Mouth, Daily, DO NOT CRUSH OR CHEW., # 90 tablet, 1 Refills, Maintenance, 09/19/23 16:25:00 EST, [facility]/pharmacy #[id number], 165, cm, 09/12/23 13:12:00 EST, Height, 100, kg, 04/04/23 16:15:00 EDT, Dry Weight Start Date: 09/19/23 Status: Ordered naratriptan 2.5 mg oral tablet 1 tablet = 2.5 mg, By Mouth, Daily, PRN for migraine headache, may repeat dose once in 4 hours, # 18 tablet, 1 Refills, Acute 07/07/24 15:56:00 EDT, 07/07/23 15:56:00 EDT, Tablet, [facility]/pharmacy #[id number],Partial fill upon patient request if the prescripti... Start Date: 07/07/23 Stop Date: 07/07/24 Status: Ordered naratriptan 2.5 mg oral tablet 1 tablet = 2.5 mg, By Mouth, Daily, PRN for migraine headache, may repeat dose once in 4 hours, # 18 tablet, 1 Refills, Acute 03/10/25 10:52:00 EDT, 07/07/24 15:56:00 EDT, Tablet, [id number] fill upon patient request if the prescripti... Start Date: 07/07/24 Stop Date: 03/10/25 Status: Ordered ondansetron 8 mg oral tablet 1 tablet, By Mouth, Daily, PRN NEEDED FOR NAUSEA AND VOMITING, # 30 tablet, 0 Refills, Maintenance, 09/23/23 10:53:00 EST, [facility] STORE 35963, 165, cm, 09/12/23 13:12:00 EST, Height, 100, kg, 04/04/23 16:15:00 EDT, Dry Weight Start Date: 09/23/23 Status: Ordered Plaquenil 200 mg oral tablet 400 mg, 2, tablet, By Mouth, Daily, Refills 0, Maintenance, 11/28/16 10:20:10 EST Start Date: 11/28/16 Status: Ordered pregabalin 200 mg oral capsule 1 capsule = 200 mg, By Mouth, 2 times a day, # 60 capsule, 5 Refills, Maintenance, 02/27/24 6:10:00EDT, Capsule, [facility]/pharmacy #[id number], Partial fill upon patient request if the prescription is for a schedule II opioid drug., 165, cm, 02/06/24 9:54:00 ED... Start Date: 02/27/24 Status: Ordered RIBOFLAVIN 400 MG TABLET RIBOFLAVIN 400 MG TABLET, 1, tablet, By Mouth, Daily, # 90 tablet, 3 Refills, Maintenance, 01/20/2413:34:00 EDT, 165, cm, 10/11/23 14:32:00 EST, Height, 100, kg, 04/04/23 16:15:00 EDT, Dry Weight Start Date: 01/21/24 Status: Ordered RisperDAL 1 mg oral tablet [...] Replace Required Details Aerosol, Route toPharmacy Electronically, [id number]... Start Date: 10/11/23 Status: Ordered Ventolin HFA 108 mcg/inh inhalation aerosol with adapter 2 puffs, Inhalation, Every 6 hours, PRN NEEDED FOR WHEEZE OR FOR SHORTNESS OF BREATH, # 18 each,3 Refills, Maintenance, 02/01/24 11:42:00 EDT, [facility] 18430, 165, cm, 10/11/23 14:32:00 EST, Height, 100, kg, 04/04/23 16:15:00 EDT, Dry Weight Start Date: 02/01/24 Status: Ordered Vitamin C By Mouth, Daily, 0 Refills, Maintenance, 01/07/19 11:24:12 EST Start Date: 01/07/19 Status: Ordered Problem List Condition Confirmation Course Effective Dates Status H ealth Status Informant Anxiety 1 Confirmed Active Asthma (clinical diagnosis) 2 Confirmed Active Last pap smear 09/23/12 negative with negative HPV. Status post total vaginal hysterectomy, no further paps needed Confirmed Active Chronic constipation Confirmed Active De Quervain's tenosynovitis Confirmed Active Depression 3 Confirmed Active Discoid lupus Confirmed Active Family history of breast cancer in mother (in her 30's) Confirmed Active Fibromyalgia syndrome Confirmed Active Gastroesophageal reflux disease (GERD) Confirmed Active Migraines Confirmed Active Mixed urinary incontinence urge and stress (primarily urge) Confirmed Active Lung nodules, bilateral Confirmed Active Small fiber neuropathy, bilateral legs Confirmed Active Obstructive sleep apnea (AIRAM), on CPAP 4 Confirmed Active Obesity severe (BMI 35.0-39.9) with comorbidity Confirmed Active Sjogren's syndrome Confirmed Active Smoker, 5-10 cigarettes per day since age 16. Quit once for 2.5 years Confirmed Active Subclinical hypothyroidism 5 Confirmed Active Systemic lupus 6 Confirmed Active Chronic urticaria Confirmed Active Vertigo Confirmed Active 1Follows with therapist and psychiatrist at [place] per previous notes 2PFTs show no obstruction. However has h/o asthma. Ct chest in 07/27 and pulm note says restrictive lung disease mild similiar to findings on PFT 3Follows with therapist and psychiatrist at [place] per previous notes 4Sleep study in 2015. Recommended CPAP 5Lab 06/03/23 - TSH 5.88, Free T4: 1.13 6Diagnosed in 2006. Followed by [facility]. On Hydroxychloroquin and cyclobenzarpine for spasms Social History Social History Type Response Smoking Status 5-9 cigarettes (betw een 1/4 to 1/2 pack)/day in last 30 days entered on: 04/04/23 Sex Female Patient Care team information Care Team Personnel Name: Bernabe MEHTA, Broderick Position: [facility] Resident Member Role: PCP Address: Address: [address] [place] [address] [place] [address]- Care Team Related Persons Name: MARIO GERARD Address: home [address] [place] [address] Name: CARI GARCÍA Address: home [address], [place] [address] Name: NOELLE MAY
--- OUTSIDE RECORDS SUMMARY | 2024-09-07 13:55 | XMS_ITS | Continuity of Care Document ---
Author Organization [facility] Address [address], [address], [address] [place] [address]- Care Team Providers Care Well Site Drilling Engineer Name Role Phone Otilia MEHTA, Kav Primary Care Physic astrid [place] [facility] [place]): [place] 04/23/20 [facility] [address], [address], [address] [place] [address]- [facility] Attending Physician: Vianey Goldsmith MD Admitting Physician: Vianey Goldsmith MD Allergies, Adverse Reactions, Alerts No Known [...] Inhalation, 2 times a day, Prescribed by Technical Architect., # 1 each, Refills 11, Tot. Refills 11, Maintenance, 03/13/18 11:00:50 EDT, Inhaler, Route to Pharmacy Electronically, [id number], [facility]/pharmacy #[id number] Start Date: 03/13/18 Status: Ordered albuterol 0.083% inhalation solution 3 mL = 2.5 mg, Neb, Every 6 hours, PRN Wheezing/Shortness of Breath, # 360 mL, 2 Refills, Maintenance, 12/04/19 15:27:00 EST, [facility]/pharmacy #[id number], 165.1, cm, 12/04/19 14:54:00 EST, Height, 86.4, kg, 08/10/19 14:42:00 EDT, Dry Weight Start Date: 12/04/19 Status: Ordered Lety Allergy 60 mg oral tablet 3 tablet = 180 mg, By Mouth, Daily, Prescribed by [facility] Management Specialist in [place]., # 90 tablet, 0 Refills, Maintenance, 02/16/16 14:46:50, Tablet Start Date: 02/16/16 Stop Date: 03/17/16 Status: Ordered amitriptyline 10 mg oral tablet 10 mg, 1, tablet, By Mouth, Daily at bedtime, # 30 tablet, Refills 5, Tot. Refills 5, Maintenance, 06/30/19 15:15:49 EDT, Route to Pharmacy Electronically, [id number], [facility]/pharmacy #[id number] Start Date: 06/30/19 Status: Ordered AUTO [...] 02/02/20 11:42:00 EDT, Route to Pharmacy Electronically, [facility]/pharmacy #[id number], 165.1, cm, 01/07/20 14:51:00 EST, [...] BY MOUTH DAILY,INSTR:DO NOT CRUSH OR CHEW, [facility]/pharmacy #[id number] Start Date: 07/07/19 Status: Ordered Nebulizer/Compressor See Instructions, # 1 each, Refills 0, Tot. Refills 0, Maintenance, for PRN albuterol inhaled, 11/21/17 16:27:13, Compound Start Date: 11/21/17 Status: Ordered omeprazole 20 mg oral enteric coated capsule 1 capsule = 20 mg, By Mouth, Daily, # 30 capsule, 2 Refills, Maintenance, 04/14/20 7:47:00 EDT, [facility]/pharmacy #[id number], 165.1, cm, 01/07/20 14:51:00 EST, Height, 86.4, kg, 08/10/19 14:42:00 EDT, Dry Weight Start Date: 04/14/20 Status: Ordered Plaquenil 200 mg oral tablet [...] tablet, 2 Refills, Maintenance, 01/07/20 15:12:00 EST, [facility]/pharmacy #[id number], 165.1, cm, 01/07/20 14:51:00 EST, [...] 12:30:34, Compound Start Date: 10/02/16 Status: Ordered Ventolin 90 mcg Inhaler 2, [...] apnea (AIRAM ), on CPAP(Confirmed) Active *[facility]/Leodan [phone]/[facility], active care coordination(Confirmed) Active Sjogren's syndrome(Confirmed) Active Smoker, 5-10 cigarettes per day since age 16. Quit once for 2.5 years(Confirmed) Active Systemic lupus(Confirmed) Active Chronic urticaria(Confirmed) Active Vertigo(Confirmed) Active Social History Social History Type Response Tobacco Started at age: 13 Y ears. Sex Female
--- OUTSIDE RECORDS SUMMARY | 2024-09-07 13:55 | XMS_ITS | Continuity of Care Document ---
Author Organization [facility] ter Address [address] [place] [address]- Care Team Providers Care Oracle Distribution Consultant Name Role Phone Otilia MEHTA, Kav Primary Care Physic astrid [facility] - 12/04/[address] [address]- [facility] Attending Physician: Melba Joshi MD Allergies, Adverse Reactions, Alerts No Known [...] Inhalation, 2 times a day, Prescribed by Grocery Cashier., # 1 each, Refills 11, Tot. Refills 11, Maintenance, 03/13/18 11:00:50 EDT, Inhaler, Route to Pharmacy Electronically, [id number], [facility]/pharmacy #[id number] Start Date: 03/13/18 Status: Ordered albuterol 0.083% inhalation solution 3 mL = 2.5 mg, Neb, Every 6 hours, PRN Wheezing/Shortness of Breath, # 360 mL, 2 Refills, Maintenance, 12/04/19 15:27:00 EST, [facility]/pharmacy #[id number], 165.1, cm, 12/04/19 14:54:00 EST, Height, 86.4, kg, 08/10/19 14:42:00 EDT, Dry Weight Start Date: 12/04/19 Status: Ordered Lety Allergy 60 mg oral tablet 3 tablet = 180 mg, By Mouth, Daily, Prescribed by Sandfill Operator Surface in [place]., # 90 tablet, 0 Refills, Maintenance, 02/16/16 14:46:50, Tablet Start Date: 02/16/16 Stop Date: 03/17/16 Status: Ordered amitriptyline 10 mg oral tablet 10 mg, 1, tablet, By Mouth, Daily at bedtime, # 30 tablet, Refills 5, Tot. Refills 5, Maintenance, 06/30/19 15:15:49 EDT, Route to Pharmacy Electronically, [id number], [facility]/pharmacy #[id number] Start Date: 06/30/19 Status: Ordered [...] 10/14/19 17:13:14 EST, Route to Pharmacy Electronically, [id number], [facility]/pharmacy #[id number], 165.1, cm, 10/14/19 11:26:54 EST, Hei... [...] 9:14:40, Compound Start Date: 12/23/17 Status: Ordered Levaquin 750 mg oral tablet 1 tablet = 750 mg, By Mouth, Every 24 hours, for 7 days, # 7 tablet, 0 Refills, Acute 12/11/19 15:53:00 EST, 12/04/19 15:53:00 EST, Tablet, [facility]/pharmacy #[id number], 165.1, cm, 12/04/19 14:54:00 EST, Height, 86.4, kg, 08/10/19 14:42:00 EDT, Dry Weight Start Date: 12/04/19 Stop Date: 12/11/19 Status: Ordered meclizine 25 mg oral tablet [...] BY MOUTH DAILY,INSTR:DO NOT CRUSH OR CHEW, [facility]/pharmacy #207 Start Date: 07/07/19 Status: Ordered Nebulizer/Compressor See Instructions, # 1 each, Refills 0, Tot. Refills 0, Maintenance, for PRN albuterol inhaled, 11/21/17 16:27:13, Compound Start Date: 11/21/17 Status: Ordered nicotine 21 mg/24 hr transdermal film, extended release 1 patch, Topically, Daily, for 14 days, # 14 patch, 0 Refills, Acute 12/18/19 16:06:00 EST, 12/04/19 16:06:00 EST, Patch, [facility]/pharmacy #[id number], 1 patch Topically Daily,x14 days, 165.1, cm, 12/04/19 14:54:00 EST, Height, 86.4, kg, 08/10/19 14:42:00 EDT,... Start Date: 12/04/19 Stop Date: 12/18/19 Status: Ordered omeprazole 20 mg oral enteric coated capsule 1 capsule = 20 mg, By Mouth, Daily, # 30 capsule, 2 Refills, Maintenance, 12/15/18 15:24:02 EST Start Date: 12/15/18 Status: Ordered Plaquenil 200 mg oral tablet 400 mg, 2, tablet, By Mouth, Daily, Refills 0, Maintenance, 11/28/16 10:20:10 EST Start Date: 11/28/16 Status: Ordered predniSONE 20 mg oral tablet 2 tablet = 40 mg, By Mouth, Daily, for 5 days, # 10 tablet, 0 Refills, Acute 12/09/19 15:52:00 EST,12/04/19 15:52:00 EST, Tablet, [facility]/pharmacy #[id number], 165.1, cm, 12/04/19 14:54:00 EST, Height, 86.4, kg, 08/10/19 14:42:00 EDT, Dry Weight Start Date: 12/04/19 Stop Date: 12/09/19 Status: Ordered pregabalin 100 mg oral capsule 1 capsule = 100 mg, By Mouth, 2 times a day, Dose increase to 100mg bid 12/30/18., # 60 capsule, 5 Refills, Maintenance, 09/22/19 14:09:56 EST Start Date: 09/22/19 Status: Ordered raNITIdine 150 mg oral tablet 1 tablet = 150 mg, By Mouth, 2 times a day, # 60 tablet, 2 Refills, Maintenance, 10/15/18 12:07:59 EST Start Date: 10/15/18 Status: Ordered RisperDAL 1 mg oral tablet 1 mg, 1, tablet, By Mouth, Daily at bedtime, Refills 0, Maintenance, 09/22/19 14:01:17 EST Start Date: 09/22/19 Status: Ordered Robitussin Cough & Allergy oral liquid 10 mL, By Mouth, Every 4 hours, PRN for cough and congestion, # 240 mL, 0 Refills, Acute 01/02/20 15:28:00 EST, 12/04/19 15:28:00 EST, Liquid, [facility]/pharmacy #[id number], 10 mL By Mouth Every 4 hours,PRN:forcough and congestion, 165.1, cm, 12/04/19 14:54:00... Start Date: 12/04/19 Stop Date: 01/02/20 Status: Ordered Singulair 10 mg oral tablet 1 tablet = 10 mg, By Mouth, Daily in PM, # 30 tablet, 0 Refills, Maintenance, 12/26/15 10:10:46, Tablet Start Date: 12/26/15 Status: Ordered Spacer Spacer, See Instructions, # 1 units, Refills 0, Tot. Refills 0, Maintenance, Use w inhaler, 10/02/16 12:30:34, Compound Start Date: 10/02/16 Status: Ordered Tamiflu 75 mg oral capsule 1 capsule = 75 mg, By Mouth, 2 times a day, for 5 days, # 10 capsule, 0 Refills, Acute 12/09/19 15:27:00 EST, 12/04/19 15:27:00 EST, Capsule, [facility]/pharmacy #207, 165.1, cm, 12/04/19 14:54:00 EST, Height, 86.4, kg, 08/10/19 14:42:00 EDT, Dry Weight Start Date: 12/04/19 Stop Date: 12/09/19 Status: Ordered Tylenol 8 HR Arthritis Pain 650 mg oral tablet, extended release 2 tablet = 1,300 mg, By Mouth, Every 8 hours, PRN as needed for fever, # 24 tablet, 0 Refills, Acute 01/31/20 15:27:00 EDT, 12/04/19 15:27:00 EST, ER Tablet, [facility]/pharmacy #207, 165.1, cm, 12/04/19 14:54:00 EST, Height, 86.4, kg, 08/10/19 14:42:00 EDT... Start Date: 12/04/19 Stop Date: [...] sleep apnea (AIRAM ), on CPAP(Confirmed) Active *BHN/BHCP/BENNETT-Nicolasa RichAqmezgo-[phone]/[facility], active care coordination(Confirmed) Active Sjogren's syndrome(Confirmed) Active Smoker, 5-10 cigarettes per day since age 16. Quit once for 2.5 years(Confirmed) Active Systemic lupus(Confirmed) Active Chronic urticaria(Confirmed) Active Vertigo(Confirmed) Active Social History Social History Type Response Tobacco Started at age: 13 Y ears. Sex Female
--- OUTSIDE RECORDS SUMMARY | 2024-09-07 13:55 | XMS_ITS | Continuity of Care Document ---
Author Organization [facility] Address [address] [place] [address]- Care Team Providers Care Logistician Name Role Phone Broderick Kidd MD Primary Care Physician [facility] Date[facility]): 09/28/23 - 10/28/23 [facility] [address] [place] [id number] Allergies, Adverse Reactions, Alerts No Known [...] 04/25/23 Given tetanus/diphtheria/pertussis, acel(Tdap) 3 01/28/13 Given [id number] bivalent booster vax 01/03/23 Recorded SARS-CoV-2 (COVID-19) [...] 07/05/08 Recor ded 1Result Comment: received at [facility] on [facility] in [place] 2Admin Note: flulaval vis given vis date 05/05/2012 3Admin Note: VIS GIVEN VIS DATE 11/27/2011 4Result Comment: received 2nd dose at [facility] 5Result Comment: received at [facility] Medications acetaminophen 500 mg oral tablet 2 tablet, By Mouth, Every 8 hours, PRN NEEDED FOR PAIN, # 100 tablet, 3 Refills, Maintenance, 10/11/23 11:48:00 EST, [facility]/pharmacy #[id number], 165, cm, 09/27/23 10:21:00 EST, Height, 100, kg, 04/04/23 16:15:00 EDT, Dry Weight Start Date: 10/11/23 Status: Ordered albuterol 0.083% inhalation solution 1 vials, Inhalation, Every 6 hours, PRN NEEDED FOR WHEEZING/SHORTNESS OF BREATH, # 300 mL, 2 Refills, Maintenance, 10/19/22 10:14:00 EST, [facility] STORE [id number], 165.1, cm, 09/18/22 9:21:00 EST, Height Start Date: 10/19/22 Status: Ordered albuterol CFC free 90 mcg/inh inhalation aerosol 2, puffs, Inhalation, Every 6 hours, PRN, # 1 each, Refills 3, Tot. Refills 3, Maintenance, 10/11/23 11:53:00 EST, Route to Pharmacy Electronically, [id number], [facility]/pharmacy#[id number], 165, cm, 09/27/23 10:21:00 EST, Height, 100,... Start Date: 10/11/23 Status: Ordered Spjwb-Qbcivx-Qxhj 300 mg oral capsule 1 capsule, By Mouth, 2 times a day, # 60 capsule, 5 Refills, Maintenance, 05/12/23 20:20:00 EDT, [facility]/pharmacy #[id number], 165, cm, 05/08/23 10:12:00 EDT, Height, 100, kg, 04/04/23 16:15:00 EDT, Dry Weight Start Date: 05/12/23 Status: Ordered amitriptyline 10 mg oral tablet 1, tablet, By Mouth, Daily at bedtime, # 90 tablet, Refills 0, Maintenance, 08/13/23 13:34:00 EDT, Route to Pharmacy Electronically, [facility] STORE [id number], 165, cm, 06/03/23 9:52:00 EDT, Height, 100, kg, 04/04/23 16:15:00 EDT, Dry Weight Start Date: 08/13/23 Status: Ordered ammonium lactate 5% topical lotion 1 application, Topically, 2 times a day, PRN Dry Skin, apply and rub in well, # 120 Gm, 0 Refills, Maintenance, 12/05/22 17:09:00 EST, Lotion, [facility]/pharmacy #[id number], Partial fill upon patient request [...] 11/23/22 9:13:00 EST, Route to Pharmacy Electronically, [facility]/pharmacy #[id number], Partial fill upon patient request [...] PAIN, # 100 Gm, 2 Refills, Maintenance, 10/24/23 12:59:00 EST, [facility]/pharmacy #[id number], 25, APPLY TOPICALLY 4 TIMES A DAY, NEEDED NEUROPATHIC PAIN, 165, cm, 10/11/23 14:32:00 EST, He... Start Date: 10/24/23 Status: Ordered famotidine 20 mg oral tablet 1, tablet, By Mouth, 2 times a day, # 180 tablet, Refills 1, Tot. Refills 1, Maintenance, 09/03/23 15:24:00 EDT, Route to Pharmacy Electronically, [facility]/pharmacy #[id number], 165, cm, 06/03/23 9:52:00 EDT, Height, 100, kg, 04/04/23 16:15:00 EDT, Dry Weight Start Date: 09/03/23 Status: Ordered hydrochlorothiazide 25 mg oral tablet 25 mg, 1, tablet, By Mouth, Daily, # 30 tablet, Refills 2, Tot. Refills 2, Maintenance, 09/27/23 11:20:00 EST, Route to Pharmacy Electronically, [facility]/pharmacy #[id number], Partial fill upon patient request [...] Refills, Maintenance, 02/05/23 23:52:00 EDT, [id number], 30, APPLY 1 PATCH TOPICALLY DAILY,X30 DAYS NEEDED FOR PAIN MILD, REMOVE AFTER 12 HOURS, 168,... Start Date: 02/05/23 Status: Ordered loratadine 10 mg oral tablet 1, tablet, By Mouth, 2 times a day, # 60 tablet, Refills 0, Maintenance, 12/31/22 14:48:00 EST, Route to Pharmacy Electronically, [facility], 165.1, cm, 12/05/22 15:21:00 EST, Height Start Date: 12/31/22 Stop Date: 01/30/23 Status: Ordered losartan 50 mg oral tablet 50 mg, 1, tablet, By Mouth, Daily, # 90 tablet, Refills 1, Tot. Refills 1, Maintenance, 10/02/23 13:31:00 EST, Route to Pharmacy Electronically, [facility]/pharmacy #[id number], Partial fill upon patient request if the prescription is for a schedule II opioid drug... Start Date: 10/02/23 Status: Ordered meclizine 25 mg oral tablet 1 tablet, By Mouth, 2 times a day, PRN NEEDED FOR DIZZINESS, # 60 tablet, 0 Refills, Maintenance, 05/30/23 16:12:00 EDT, [facility], 165, cm, 05/22/23 9:22:00 EDT, Height, 100, kg, 04/04/23 16:15:00 EDT, Dry Weight Start Date: 05/30/23 Status: Ordered Myrbetriq 50 mg oral tablet, extended release 1 tablet, By Mouth, Daily, DO NOT CRUSH OR CHEW., # 90 tablet, 1 Refills, Maintenance, 09/19/23 16:25:00 EST, [id number], 165, cm, 09/12/23 13:12:00 EST, Height, 100, kg, 04/04/23 16:15:00 EDT, Dry Weight Start Date: 09/19/23 Status: Ordered naratriptan 2.5 mg oral tablet 1 tablet = 2.5 mg, By Mouth, Daily, PRN for migraine headache, may repeat dose once in 4 hours, # 18 tablet, 1 Refills, Acute 07/07/24 15:56:00 EDT, 07/07/23 15:56:00 EDT, Tablet, [facility]/pharmacy #[id number],Partial fill upon patient request if the prescripti... Start Date: 07/07/23 Stop Date: 07/07/24 Status: Ordered ondansetron 8 mg oral tablet 1 tablet, By Mouth, Daily, PRN NEEDED FOR NAUSEA AND VOMITING, # 30 tablet, 0 Refills, Maintenance, 09/23/23 10:53:00 EST, [facility], 165, cm, 09/12/23 13:12:00 EST, Height, 100, [...] 5 Refills, Maintenance, 11/22/22 14:08:00 EST, Capsule, [facility]/pharmacy #[id number], Partial fill upon patient request if the prescription is for a schedule II opioid drug., 165.1, cm, 11/22/22 13:38:0... Start Date: 11/22/22 Status: Ordered riboflavin 400 mg oral capsule 1 capsule = 400 mg, By Mouth, Daily, # 100 capsule, 2 Refills, Maintenance, 05/12/23 20:23:00 EDT, Capsule, [facility]/pharmacy #[id number], 165, cm, 05/08/23 10:12:00 EDT, [...] Replace Required Details Aerosol, Route toPharmacy Electronically, [id number]... Start Date: 10/11/23 Status: Ordered Ventolin 90 mcg Inhaler 2, puffs, Inhalation, 4 times a day, PRN, Refills 0, Maintenance, 11/26/18 9:56:44 EST Start Date: 11/26/18 Status: Ordered Vitamin B-12 500 mcg oral tablet 1 tablet = 500 mcg, By Mouth, Daily, # 90 tablet, 1 Refills, Maintenance, 09/11/23 9:07:00 EST, Tablet, [facility]/pharmacy #[id number], Partial fill upon patient request if the prescription is for a schedule II opioid drug., 165, cm, 06/03/23 9:52:00 EDT, Height,... Start Date: 09/11/23 Stop Date: 03/09/24 Status: Ordered Vitamin B12 500 mcg oral tablet 1 tablet = 500 mcg, By Mouth, Daily, # 90 tablet, 1 Refills, Maintenance, 05/12/23 20:24:00 EDT, Tablet, [facility]/pharmacy #[id number], Partial fill upon patient request if the [...] Team Personnel Name: Broderick Kidd MD Position: [facility] Resident Member Role: PCP Address: Address: [address] [place] [address] [place] [address]- Care Team Related Persons Name: MARIO GERARD Address: home [address] [place] [address] Name: CARI GARCÍA Address: [address] [place] [address] Name: NOELLE MAY
--- OUTSIDE RECORDS SUMMARY | 2024-09-07 13:55 | XMS_ITS | Continuity of Care Document ---
Author Organization [facility] ter Address [address] [place] [address]- Care Team Providers Care Tube Depatcher Name Role Phone Otilia MEHTA, Kav Primary Care Physic astrid [facility] Date[facility]s): 12/15/19 - 12/15/[address] [address]- [facility] Attending Physician: Gregor MEHTA, Thomas Omalley Allergies, Adverse Reactions, Alerts No Known Medication [...] Inhalation, 2 times a day, Prescribed by Medicaid Billing Clerk., # 1 each, Refills 11, Tot. Refills 11, Maintenance, 03/13/18 11:00:50 EDT, Inhaler, Route to Pharmacy Electronically, [id number], [facility]/pharmacy #[id number] Start Date: 03/13/18 Status: Ordered albuterol 0.083% inhalation solution 3 mL = 2.5 mg, Neb, Every 6 hours, PRN Wheezing/Shortness of Breath, # 360 mL, 2 Refills, Maintenance, 12/04/19 15:27:00 EST, [facility]/pharmacy #[id number], 165.1, cm, 12/04/19 14:54:00 EST, Height, 86.4, kg, 08/10/19 14:42:00 EDT, Dry Weight Start Date: 12/04/19 Status: Ordered Lety Allergy 60 mg oral tablet 3 tablet = 180 mg, By Mouth, Daily, Prescribed by Yacht Hand in [place]., # 90 tablet, 0 Refills, Maintenance, 02/16/16 14:46:50, Tablet Start Date: 02/16/16 Stop Date: 03/17/16 Status: Ordered amitriptyline 10 mg oral tablet 10 mg, 1, tablet, By Mouth, Daily at bedtime, # 30 tablet, Refills 5, Tot. Refills 5, Maintenance, 06/30/19 15:15:49 EDT, Route to Pharmacy Electronically, [id number], [facility]/pharmacy #[id number] Start Date: 06/30/19 Status: Ordered [...] 10/14/19 17:13:14 EST, Route to Pharmacy Electronically, [id number], [facility]/pharmacy #[id number], 165.1, cm, 10/14/19 11:26:54 EST, [...] BY MOUTH DAILY,INSTR:DO NOT CRUSH OR CHEW, [facility]/pharmacy #207 Start Date: 07/07/19 Status: Ordered Nebulizer/Compressor See Instructions, # 1 each, Refills 0, Tot. Refills 0, Maintenance, for PRN albuterol inhaled, 11/21/17 16:27:13, Compound Start Date: 11/21/17 Status: Ordered nicotine 21 mg/24 hr transdermal film, extended release 1 patch, Topically, Daily, for 14 days, # 14 patch, 0 Refills, Acute 12/18/19 16:06:00 EST, 12/04/19 16:06:00 EST, Patch, [facility]/pharmacy #207, 1 patch Topically Daily,x14 days, 165.1, cm, [...] 01/02/20 15:28:00 EST, 12/04/19 15:28:00 EST, Liquid, [facility]/pharmacy #[id number], 10 mL By Mouth Every 4 [...] 15:27:00 EDT, 12/04/19 15:27:00 EST, ER Tablet, [facility]/pharmacy #[id number], 165.1, cm, 12/04/19 [...] sleep apnea (AIRAM ), on CPAP(Confirmed) Active *BHN/BHBENNETT/Leodan Rich-[phone]/Health skilled nursing, active care coordination(Confirmed) Active Sjogren's syndrome(Confirmed) Active Smoker, 5-10 cigarettes per day since age 16. Quit once for 2.5 years(Confirmed) Active Systemic lupus(Confirmed) Active Chronic urticaria(Confirmed) Active Vertigo(Confirmed) Active Social History Social History Type Response Tobacco Started at age: 13 Y ears. Sex Female
--- OUTSIDE RECORDS SUMMARY | 2024-09-07 13:55 | XMS_ITS | Continuity of Care Document ---
[facility] Address [address], [address] [place] [address]- Care Team Providers Care Merchandising Stock Associate Name Role Phone Ashley Faria MD Primary Care Physician Encounter [facility] Date(s): 04/30/20 - 08/28/20 [facility] [address], [address] [place] [address]- [facility] Attending Physician: Melba Joshi MD Admitting Physician: Melba Joshi MD Referring Physician: Ashley [...] Inhalation, 2 times a day, Prescribed by Dial Refinisher., # 1 each, Refills 11, Tot. Refills 11, Maintenance, 03/13/18 11:00:50 EDT, Inhaler, Route to Pharmacy Electronically, [id number], [facility]/pharmacy #207 Start Date: 03/13/18 Status: Ordered albuterol 0.083% inhalation solution 3 mL = 2.5 mg, Neb, Every 6 hours, PRN Wheezing/Shortness of Breath, # 360 mL, 2 Refills, Maintenance, 12/04/19 15:27:00 EST, [facility]/pharmacy #[id number], 165.1, cm, 12/04/19 14:54:00 EST, Height, 86.4, kg, 08/10/19 14:42:00 EDT, Dry Weight Start Date: 12/04/19 Status: Ordered Lety Allergy 60 mg oral tablet 3 tablet = 180 mg, By Mouth, Daily, Prescribed by Retail Financial Analyst in [place]., # 90 tablet, 0 Refills, Maintenance, 02/16/16 14:46:50, Tablet Start Date: 02/16/16 Stop Date: 03/17/16 Status: Ordered Alpha Lipoic 300 mg oral tablet 1 tablet = 300 mg, By Mouth, 2 times a day, # 60 tablet, 3 Refills, Maintenance, 06/09/20 11:40:00 EDT, Tablet, [facility]/pharmacy #207, 165.1, cm, 05/10/20 10:01:00 EDT, Height, 86.4, kg, 08/10/19 14:42:00 EDT, Dry Weight Start Date: 06/09/20 Status: Ordered amitriptyline 10 mg oral tablet 10 mg, 1, tablet, By Mouth, Daily at bedtime, # 30 tablet, Refills 5, Tot. Refills 5, Maintenance, 08/02/20 12:33:00 EDT, Route to Pharmacy Electronically, [facility]/pharmacy #207, 165.1, cm, 05/10/20 10:01:00 EDT, Height, 86.4, kg, 08/10/19 14:42:00 EDT,... Start Date: 08/02/20 Status: Ordered AUTO CPAP MACHINE AND SUPPLIES [...] 02/02/20 11:42:00 EDT, Route to Pharmacy Electronically, [facility]/pharmacy #[id number], 165.1, cm, 01/07/20 14:51:00 EST, Height, [...] hours. Not > 4/week., # 9 tablet, 1 Refills, Maintenance, 06/09/20 11:40:00 EDT, [facility]/pharmacy #[id number], 165.1, cm, 05/10/20 10:01:00 EDT, Height, 86.4, kg, 08/10/19 14:42:... Start Date: 06/09/20 Status: Ordered Knee high compression stockings at [...] chew, # 30 tablet, 5 Refills, Maintenance, 08/02/20 12:33:00 EDT, ER Tablet, [facility]/pharmacy #[id number], 165.1, cm, 05/10/20 10:01:00 EDT, Height, 86.4, kg,08/10/19 14:42:00 EDT, Dry Weight Start Date: 08/02/20 Status: Ordered MiraLax oral powder for reconstitution [...] BY MOUTH DAILY,INSTR:DO NOT CRUSH OR CHEW, [facility]/pharmacy #[id number] Start Date: 07/07/19 Status: Ordered Nebulizer/Compressor See Instructions, # 1 each, Refills 0, Tot. Refills 0, Maintenance, for PRN albuterol inhaled, 11/21/17 16:27:13, Compound Start Date: 11/21/17 Status: Ordered omeprazole 20 mg oral enteric coated capsule 1 capsule = 20 mg, By Mouth, Daily, # 30 capsule, 2 Refills, Maintenance, 04/14/20 7:47:00 EDT, [facility]/pharmacy #207, 165.1, cm, 01/07/20 14:51:00 EST, Height, 86.4, [...] tablet, 2 Refills, Maintenance, 01/07/20 15:12:00 EST, [facility]/pharmacy #[id number], 165.1, cm, 01/07/20 14:51:00 EST, Height, [...] apnea (AIRAM ), on CPAP(Confirmed) Active *BHN/BHBENNETT/Leodan Rich-[phone]/Health nursing home, active care coordination(Confirmed) Active Sjogren's syndrome(Confirmed) Active Smoker, 5-10 cigarettes per day since age 16. Quit once for 2.5 years(Confirmed) Active Systemic lupus(Confirmed) Active Chronic urticaria(Confirmed) Active Vertigo(Confirmed) Active Social History Social History Type Response Tobacco Started at age: 13 Y ears. Sex Female
--- OUTSIDE RECORDS SUMMARY | 2024-09-07 13:55 | XMS_ITS | Continuity of Care Document ---
Author Organization [facility] Address [address] [place] [id number]- Care Team Providers Care Lacer And Tier Name Role Phone Ashley Faria MD Primary Care Physician Encounter [facility] Date(s): 01/10/23 - 02/09/23 [facility] [address] [place] [id number]- Attending Physician: Sosa Joy Admitting Physician: AdmtrSosa Referring Physician: Admtr, ArErum Allergies, Adverse Reactions, Alerts No Known Medication Allergies Immunizations Given and Recorded Vaccine Date Status Refusal Reason [id number] bivalent booster vax 01/03/23 Recorded influenza virus [...] 09/20/21 R ecorded SARS-CoV-2 (COVID-19) mRNA-1273 vaccine 3 01/24/21 Recorded SARS-CoV-2 (COVID-19) mRNA-1273 vaccine 4 12/27/20 Recorded pneumococcal 23-valent vaccine 10/25/15 Given tetanus/diphtheria/pertussis, acel(Tdap) 5 01/28/13 Given hepatitis B adult vaccine 03/08/09 Recorded hepatitis B adult vaccine 11/09/08 Recorded hepatitis B adult vaccine 09/29/08 Recorded tetanus-diphtheria toxoids (Td) 07/28/08 Recorded Measles/Mumps/Rubella Virus Vaccine 07/05/08 Recor ded 1Result Comment: received at [facility] on [facility] in [address] Note: flulaval vis given vis date 05/05/2012 3Result Comment: received 2nd dose at [facility] 4Result Comment: received at [address] Note: VIS GIVEN VIS DATE 11/27/2011 Medications acetaminophen 500 mg oral tablet 2 tablet, By Mouth, Every 8 hours, PRN NEEDED FOR PAIN, # 100 tablet, 3 Refills, Maintenance, 12/05/22 16:15:00 EST, [facility]/pharmacy #[id number], 165.1, cm, 12/05/22 15:21:00 EST, Height Start Date: 12/05/22 Status: Ordered albuterol 0.083% inhalation solution 1 vials, Inhalation, Every 6 hours, PRN NEEDED FOR WHEEZING/SHORTNESS OF BREATH, # 300 mL, 2 Refills, Maintenance, 10/19/22 10:14:00 EST, [id number], 165.1, cm, 09/18/22 9:21:00 EST, Height Start Date: 10/19/22 Status: Ordered Kpqdf-Emoxvb-Mgzd 300 mg oral capsule 1 capsule, By Mouth, 2 times a day, OTC N/C., # 60 capsule, 5 Refills, Maintenance, 08/17/21 15:40:00 EDT, [facility]/pharmacy #[id number], 165.1, cm, 08/14/21 14:44:00 EDT, Height Start Date: 08/17/21 Status: Ordered amitriptyline 10 mg oral tablet 1, tablet, By Mouth, Daily at bedtime, # 30 tablet, Refills 5, Maintenance, 01/21/23 11:23:00 EDT, Route to Pharmacy Electronically, [facility], 168, cm, 01/15/23 7:16:00 EDT, Height, 99.4, kg, 01/15/23 7:16:00 EDT, Dry Weight Start Date: 01/21/23 Status: Ordered amLODIPine 5 mg oral tablet 1 tablet, By Mouth, Daily in AM, # 60 tablet, 0 Refills, Maintenance, 01/31/23 19:32:00 EDT, [facility], 168, cm, 01/15/23 7:16:00 EDT, Height, 99.4, kg, 01/15/23 7:16:00 EDT, Dry Weight Start Date: 01/31/23 Status: Ordered ammonium lactate 5% topical lotion 1 application, Topically, 2 times a day, PRN Dry Skin, apply and rub in well, # 120 Gm, 0 Refills, Maintenance, 12/05/22 17:09:00 EST, Lotion, [facility]/pharmacy #[id number], Partial fill upon patient request ifthe prescription is for a schedule II opioid drug.,... Start Date: 12/05/22 Stop Date: 12/19/22 Status: Ordered AUTO CPAP MACHINE AND SUPPLIES AUTO CPAP MACHINE AND SUPPLIES, See Instructions, # 1 each, Refills 0, Tot. Refills 0, Maintenance,Auto CPAP 6-18 cm H2O, with heated humidifier and download capacity. PLS REFILL X 12 FOR CPAP SUPPLIES DX: AIRAM ICD-10 G47.33, 11/25/15 8:44:54, Com... Start Date: 11/25/15 Status: Ordered Calcium 250 mg + Vitamin [...] EDT, Height Start Date: 09/14/21 Status: Ordered cyanocobalamin 1000 mcg oral tablet 1,000 mcg, 1, tablet, By Mouth, Daily, # 90 tablet, Refills 1, Tot. Refills 1, Maintenance, 11/23/22 9:13:00 EST, Route to Pharmacy Electronically, [facility]/pharmacy #[id number], Partial fill upon patient request if the prescription is for a schedule II opioid d... Start Date: 11/23/22 Status: Ordered Cymbalta 30 mg oral enteric coated capsule 1 capsule = 30 mg, By Mouth, 2 times a day, 0 Refills, Maintenance, 08/10/19 15:02:15 EDT Start Date: 08/10/19 Status: Ordered famotidine 20 mg oral tablet 1, tablet, By Mouth, 2 times a day, # 60 tablet, Refills 5, Tot. Refills 5, 07/12/22 19:10:00 EDT, Route to Pharmacy Electronically, [facility]/pharmacy #[id number], 165.1, cm, 07/12/22 17:15:00 EDT, Height Start Date: 07/12/22 Status: Ordered guaiFENesin 100 mg/5 mL oral liquid 20 mL = 400 mg, By Mouth, Every 6 hours, PRN for cough, # 240 mL, 0 Refills, Maintenance, 09/05/22 16:24:00 EDT, Liquid, [facility]/pharmacy #[id number], Partial fill upon patient request if the prescription is for a schedule II opioid drug., 165.1, cm, 09/05/22 1... Start Date: 09/05/22 Status: Ordered HydrOXYzine = 25 mg, By [...] 9:14:40, Compound Start Date: 12/23/17 Status: Ordered lidocaine 5% topical film 1 patch, Topically, Daily, PRN NEEDED FOR PAIN MILD, REMOVE AFTER 12 HOURS, # 30 patch, 0 Refills, Maintenance, 02/05/23 23:52:00 EDT, [facility], 30, APPLY 1 PATCH TOPICALLY DAILY,X30 DAYS NEEDED FOR PAIN MILD, REMOVE AFTER 12 HOURS, 168,... Start Date: 02/05/23 Status: Ordered loratadine 10 mg oral tablet 1, tablet, By Mouth, 2 times a day, # 60 tablet, Refills 0, Maintenance, 12/31/22 14:48:00 EST, Route to Pharmacy Electronically, [facility], 165.1, cm, 12/05/22 15:21:00 EST, Height Start Date: 12/31/22 Stop Date: 01/30/23 Status: Ordered meclizine 25 mg oral tablet 1 tablet, By Mouth, 2 times a day, PRN NEEDED FOR DIZZINESS, Take as needed for dizziness, # 60 tablet, 2 Refills, Maintenance, 12/05/22 16:13:00 EST, [facility]/pharmacy #[id number], 165.1, cm, 12/05/22 15:21:00 EST, Height Start Date: 12/05/22 Stop Date: 03/05/23 Status: Ordered MiraLax oral powder for reconstitution [...] 16:27:13, Compound Start Date: 11/21/17 Status: Ordered NuLYTELY with Flavor Packs oral powder for reconstitution 240 mL, By Mouth, Every 10 minutes, May substitute any PEG 3350 solution available SPLIT PREP METHOD, # 1 each, 0 Refills, Maintenance, 01/14/23 17:00:00 EDT, REC Powder, [facility]/pharmacy #[id number], test date 01/15/23, 240 mL By Mouth Every 10 minutes,Instr:M... Start Date: 01/14/23 Status: Ordered pair of cockup wrist splints pair of cockup wrist splints, See Instructions, # 2 each, Refills 0, Tot. Refills 0, Maintenance, wear for carpal tunnel Code G56.0, 01/10/23 15:36:00 EST, Supply Start Date: 01/10/23 Status: Ordered Paxlovid 150 mg-100 mg oral tablet See Instructions, Take 300 mg nirmatrelvir (two 150 mg tablets) and 100 mg ritonavir (one 100 mg tablet), taking all three tablets together, orally twice daily for 5 days, # 30 each, 0 Refills, Maintenance, 09/05/22 16:24:00 EDT, [facility]/pharmacy #[id number], 3... Start Date: 09/05/22 Status: Ordered Plaquenil 200 mg oral tablet 400 mg, 2, tablet, By Mouth, Daily, Refills 0, Maintenance, 11/28/16 10:20:10 EST Start Date: 11/28/16 Status: Ordered pregabalin 200 mg oral capsule 1 capsule = 200 mg, By Mouth, 2 times a day, # 60 capsule, 5 Refills, Maintenance, 11/22/22 14:08:00 EST, Capsule, [facility]/pharmacy #[id number], Partial fill upon patient request if the prescription is for a schedule II opioid drug., 165.1, cm, 11/22/22 13:38:0... Start Date: 11/22/22 Status: Ordered riboflavin 400 mg oral capsule 1 capsule = 400 mg, By Mouth, Daily, # 100 capsule, 2 Refills, Maintenance, 09/12/20 18:13:00 EST, Capsule, [id number], 165.1, cm, 05/10/20 10:01:00 EDT, Height, [...] Maintenance, 08/17/21 15:39:00 EDT, [facility]/pharmacy #[id number], 165.1, cm, 08/14/21 14:44:00 EDT, Height Start Date: 08/17/21 Status: Ordered Symbicort 80mcg/4.5mcg Inhaler See Instructions, PRN, 1 puff 2 x per day BRand name covered by hne, # 1 each, Refills 6, Tot. Refills 6, Maintenance, 09/29/21 9:04:00 EST, Instructions Replace Required Details Aerosol, Route to Pharmacy Electronically, [id number]... Start Date: 09/29/21 Status: Ordered Ventolin 90 [...] Refills, Maintenance, 09/20/21 15:14:00 EST, Chew Tablet, [facility]/pharmacy #[id number], Partial fill upon patient request if the [...] Small fiber neuropathy, bilateral legs Confirmed Active Obesity Confirmed Active Obstructive sleep apnea (AIRAM), on CPAP Confirmed Active Severe obesity (BMI 35.0-39.9) with comorbidity Confirmed Active Sjogren's syndrome Confirmed Active Smoker, 5-10 cigarettes per day since age 16. Quit once for 2.5 years Confirmed Active Systemic lupus Confirmed Active Chronic urticaria Confirmed Active Vertigo Confirmed Active Social History Social History Type Response Tobacco Started at age: 13 Y ears. Sex Female Note * Event Display: Laboratory Result Scanned Authored Date: * Event Display: Non BH Lab Results Authored Date: * Event Display: Non BH Lab Results Authored Date: * Event Display: Non BH Radiology Results Authored Date: * Event Display: Non BH Radiology Results Authored Date: MG Breast Views * Event Display: MM Mammogram Authored Date: * Event Display: MM Mammogram Authored Date: * Event Display: MM Mammogram, Non- BH Authored Date: * Event Display: MM Mammogram, Non- BH Authored Date: * Event Display: MM Mammogram, Non- BH Authored Date: * Event Display: MM Mammogram Authored Date: Patient Care team information Care Team Personnel Name: Ashley Faria MD Position: S Resident Member Role: PCP Address: Address: [address] [place] [address] [place], [place] [address] Care Team Related Persons Name: MARIO GERARD Address: home [address] [place] [address] Name: CARI GARCÍA Address: home [address] [address] Name: NOELLE MAY
--- OUTSIDE RECORDS SUMMARY | 2024-09-07 13:55 | XMS_ITS | Continuity of Care Document ---
Author Organization [facility] Address [address] [place] [address]- Care Team Providers Care Photo Optics Technician Name Role Phone Broderick Kidd MD Primary Care Physician [phone] Encounter [facility] Date(s): 05/21/24 - 06/20/24 [facility] [address] [place] [phone] Allergies, Adverse Reactions, Alerts No Known Allergies [...] 04/25/23 Given tetanus/diphtheria/pertussis, acel(Tdap) 3 01/28/13 Given [id number] bivalent booster vax 01/03/23 Recorded SARS-CoV-2 (COVID-19) [...] 07/05/08 Recor ded 1Result Comment: received at [facility] on [facility] in [place] 2Admin Note: flulaval vis given vis date 05/05/2012 3Admin Note: VIS GIVEN VIS DATE 11/27/2011 4Result Comment: received 2nd dose at [facility] 5Result Comment: received at [facility] Medications acetaminophen 500 mg oral tablet 2 tablet, By Mouth, Every 8 hours, PRN NEEDED FOR PAIN, # 100 tablet, 3 Refills, Maintenance, 10/11/23 11:48:00 EST, [facility]/pharmacy #[id number], 165, cm, 09/27/23 10:21:00 EST, Height, 100, kg, 04/04/23 16:15:00 EDT, Dry Weight Start Date: 10/11/23 Status: Ordered Ajovy Autoinjector 225 mg/1.5 mL subcutaneous solution = 225 mg, Subcutaneous Injection, Every 28 days, # 1 kit, 5 Refills, Maintenance, 03/16/24 12:10:00EDT, [facility], Partial fill upon patient request if the prescription is for a schedule II opioid drug., 165, cm, 03/10/24 10:03:00 E... Start Date: 03/16/24 Status: Ordered amitriptyline 10 mg oral tablet 1, tablet, By Mouth, Daily at bedtime, # 90 tablet, Refills 0, Maintenance, 06/10/24 15:49:00 EDT, Route to Pharmacy Electronically, [id number], 173, cm, 06/08/24 14:38:00 EDT, Height, 101.4, kg, 04/27/24 14:38:00 EDT, Dry Weight Start Date: 06/10/24 Status: Ordered ammonium lactate 5% topical lotion 1 application, Topically, 2 times a day, PRN Dry Skin, apply and rub in well, # 120 Gm, 0 Refills, Maintenance, 12/05/22 17:09:00 EST, Lotion, [facility]/pharmacy #[id number], Partial fill upon patient request ifthe prescription is for a schedule II opioid drug.,... Start Date: 12/05/22 Stop Date: 12/19/22 Status: Ordered aspirin 81 mg oral delayed release tablet = 81 mg, By Mouth, Daily, Refill per PCP or Instrument Maker, # 30 tablet, 2 Refills, Maintenance, 04/29/24 12:54:00 EDT, EC Tablet, [facility], Partial fill upon patient request if the prescription is for a schedule II opioid drug., 173, cm... Start Date: 04/29/24 Status: Ordered atorvastatin 80 mg oral tablet = 80 mg, By Mouth, Daily at bedtime, Refill per PCP or Instrument Maker, # 90 capsule, 3 Refills, Maintenance, 05/21/24 18:58:00 EDT, Tablet, [facility]/pharmacy #[id number], Partial fill upon patient request if the prescription is for a schedule II opioid drug., 173,... Start Date: 05/21/24 Stop Date: 05/16/25 Status: Ordered Calcium 250 mg + Vitamin [...] 11/23/22 9:13:00 EST, Route to Pharmacy Electronically, [facility]/pharmacy #[id number], Partial fill upon patient request if the prescription is for a schedule II opioid d... Start Date: 11/23/22 Status: Ordered cyclobenzaprine 5 mg oral tablet 0 Refills, Maintenance, 03/10/24 10:15:00 EDT, Partial fill upon patient request if the prescription is for a schedule II opioid drug. Start Date: 03/10/24 Status: Ordered diclofenac 1% topical gel See Instructions, APPLY TOPICALLY 4 TIMES A DAY, NEEDED NEUROPATHIC PAIN, # 100 Gm, 2 Refills, Maintenance, 05/14/24 12:20:00 EDT, [facility] 40116, 25, APPLY TOPICALLY 4 TIMES A DAY, NEEDED NEUROPATHIC PAIN, 173, cm, 04/29/24 7:26:00 EDT, Height... Start Date: 05/14/24 Status: Ordered duloxetine 30 mg oral enteric coated capsule 1 capsule = 30 mg, By Mouth, Daily, do not crush or chew, 0 Refills, Maintenance, 04/27/24 18:08:00EDT, [facility]aps[facility], Partial fill upon patient request if the prescription is for a schedule II opioid drug. Start Date: 04/27/24 Status: Ordered famotidine 20 mg oral tablet 1, tablet, By Mouth, 2 times a day, # 180 tablet, Refills 1, Maintenance, 02/24/24 12:56:00 EDT, Route to Pharmacy Electronically, [facility], 165, cm, 02/06/24 9:54:00 EDT, Height, 100, kg, 04/04/23 16:15:00 EDT, Dry Weight Start Date: 02/24/24 Status: Ordered lidocaine 5% topical film 1 patch, Topically, Daily, PRN NEEDED FOR PAIN MILD, REMOVE AFTER 12 HOURS, # 30 patch, 0 Refills, Maintenance, 02/05/23 23:52:00 EDT, [facility]773, 30, APPLY 1 PATCH TOPICALLY DAILY,X30 DAYS NEEDED FOR PAIN MILD, REMOVE AFTER 12 HOURS, 168,... Start Date: 02/05/23 Status: Ordered loratadine 10 mg oral tablet 1, tablet, By Mouth, 2 times a day, # 60 tablet, Refills 0, Maintenance, 12/31/22 14:48:00 EST, Route to Pharmacy Electronically, [facility], 165.1, cm, 12/05/22 15:21:00 EST, Height Start Date: 12/31/22 Stop Date: 01/30/23 Status: Ordered losartan 50 mg oral tablet 1 tablet, By Mouth, Daily, # 90 tablet, 1 Refills, Maintenance, 03/10/24 12:55:00 EDT, [facility], 165, cm, 03/10/24 10:03:00 EDT, Height, 100, kg, 04/04/23 16:15:00 EDT, Dry Weight Start Date: 03/10/24 Status: Ordered meclizine 25 mg oral tablet 1 tablet, By Mouth, 2 times a day, PRN NEEDED FOR DIZZINESS, # 60 tablet, 1 Refills, Maintenance, 05/27/24 11:25:00 EDT, [id number], 173, cm, 05/27/24 11:05:00 EDT, Height, 101.4, kg, 04/27/24 14:38:00 EDT, Dry Weight Start Date: 05/27/24 Status: Ordered metoprolol 25 mg oral tablet, extended release 12.5 mg, 0.5, tablet, By Mouth, Daily, Refill per PCP or Instrument Maker, # 90 tablet, Refills 3, Tot.Refills 3, Maintenance, 05/21/24 18:58:00 EDT, Route to Pharmacy Electronically, [facility]/pharmacy #[id number], Partial fill upon patient request if the prescript... Start Date: 05/21/24 Stop Date: 09/18/24 Status: Ordered Myrbetriq 50 mg oral tablet, extended release 1 tablet, By Mouth, Daily, DO NOT CRUSH OR CHEW., # 90 tablet, 1 Refills, Maintenance, 09/19/23 16:25:00 EST, [id number], 165, cm, 09/12/23 13:12:00 EST, Height, 100, kg, 04/04/23 16:15:00 EDT, Dry Weight Start Date: 09/19/23 Status: Ordered naratriptan 2.5 mg oral tablet 1 tablet, By Mouth, Daily, PRN NEEDED FOR MIGRAINE, MAY REPEAT DOSE AFTER 4 HOURS IF NEEDED, # 18 tablet, 1 Refills, Maintenance, 05/11/24 23:04:00 EDT, [facility], 173, cm, 04/29/24 7:26:00 EDT, Height, 101.4, kg, 04/27/24 14:38:00 EDT, Dry W... Start Date: 05/11/24 Status: Ordered nicotine 21 mg/24 hr transdermal film, extended release 1 patch, Topically, Daily, for 30 days, # 30 patch, 1 Refills, Acute 07/13/24 14:37:00 EDT, 05/14/24 14:37:00 EDT, Patch, [facility], Partial fill upon patient request if the prescription is for a schedule II opioid drug., 1 patch Topi... Start Date: 05/14/24 Stop Date: 07/13/24 Status: Ordered ondansetron 8 mg oral tablet 1 tablet, By Mouth, Daily, PRN NEEDED FOR NAUSEA AND VOMITING, # 30 tablet, 0 Refills, Maintenance, 09/23/23 10:53:00 EST, [facility], 165, cm, 09/12/23 13:12:00 EST, Height, 100, kg, 04/04/23 16:15:00 EDT, Dry Weight Start Date: 09/23/23 Status: Ordered pantoprazole 20 mg oral delayed release tablet = 20 mg, By Mouth, Daily, Take for next 12 months while taking aspirin and Brillinta. Refill per PCP or Instrument Maker., # 90 tablet, 3 Refills, Maintenance, 05/21/24 19:00:00 EDT, [facility] Tablet, 173, cm, 05/14/24 13:36:00 EDT, Height, 101.4, kg, 04/27/24 1... Start Date: 05/21/24 Stop Date: 05/16/25 Status: Ordered Plaquenil 200 mg oral tablet 400 mg, 2, tablet, By Mouth, Daily, Refills 0, Maintenance, 11/28/16 10:20:10 EST Start Date: 11/28/16 Status: Ordered pregabalin 200 mg oral capsule 1 capsule = 200 mg, By Mouth, 2 times a day, # 60 capsule, 5 Refills, Maintenance, 02/27/24 6:10:00EDT, Capsule, [facility]/pharmacy #[id number], Partial fill upon patient request if the prescription is for a schedule II opioid drug., 165, cm, 02/06/24 9:54:00 ED... Start Date: 02/27/24 Status: Ordered Pull up diapers Pull up diapers, See Instructions, # 60 each, Refills 11, Tot. Refills 11, Maintenance, Dx: Mixed urinary incontinence M39.46 duration: lifetime, 05/15/24 8:18:00 EDT, Supply Start Date: 05/15/24 Status: Ordered RIBOFLAVIN 400 MG TABLET RIBOFLAVIN 400 MG TABLET, 1, tablet, By Mouth, Daily, # 90 tablet, 3 Refills, Maintenance, 01/20/2413:34:00 EDT, 165, cm, 10/11/23 14:32:00 EST, Height, 100, kg, 04/04/23 16:15:00 EDT, Dry Weight Start Date: 01/21/24 Status: Ordered risperiDONE 2 mg oral tablet TAKE 1 TABLET BY MOUTH EVERYDAY AT BEDTIME Start Date: 04/27/24 Status: Ordered Shower chair Shower chair, See Instructions, # 1 each, Refills 0, Tot. Refills 0, Maintenance, Dx: impaired mobility Z74.09 duration: lifetime, 05/15/24 8:18:00 EDT, Supply Start Date: 05/15/24 Status: Ordered Singulair 10 mg oral tablet [...] Replace Required Details Aerosol, Route toPharmacy Electronically, [id number]... Start Date: 10/11/23 Status: Ordered ticagrelor 90 mg oral tablet 1 tablet = 90 mg, By Mouth, 2 times a day, Refill per PCP or Instrument Maker, # 60 tablet, 2 Refills, Maintenance, 04/29/24 12:57:00 EDT, Tablet, [facility], Partial fill upon patient request if the prescription is for a schedule II opioid... Start Date: 04/29/24 Status: Ordered Ventolin HFA 108 mcg/inh inhalation aerosol with adapter 2 puffs, Inhalation, Every 6 hours, PRN NEEDED FOR WHEEZE OR FOR SHORTNESS OF BREATH, # 18 each,5 Refills, Maintenance, 05/12/24 11:06:00 EDT, [facility], 173, cm, 04/29/24 7:26:00 EDT, Height, 101.4, kg, 04/27/24 14:38:00 EDT, Dry Weight Start Date: 05/12/24 Status: Ordered Vitamin C By Mouth, Daily, [...] 30's) Confirmed Active Fibromyalgia syndrome Confirmed Active Tobacco use Confirmed Active Gastroesophageal reflux disease (GERD) Confirmed Active Migraines Confirmed Active Mixed urinary incontinence urge and stress (primarily urge) Confirmed Active Lung nodules, bilateral Confirmed Active Small fiber neuropathy, bilateral legs Confirmed Active Obese class I Confirmed Active Obstructive sleep apnea (AIRAM), on CPAP 4 Confirmed Active Sjogren's syndrome Confirmed Active Smoker, 5-10 cigarettes per day since age 16. Quit once for 2.5 years Confirmed Active Subclinical hypothyroidism 5 Confirmed Active Systemic lupus 6 Confirmed Active Chronic urticaria Confirmed Active Vertigo Confirmed Active 1Follows with therapist and psychiatrist at [place] per previous notes 2PFTs show no obstruction. However has h/o asthma. Ct chest in 9/23 and pulm note says restrictive lung disease mild similiar to findings on PFT 3Follows with therapist and psychiatrist at [place] per previous notes 4Sleep study in 2016. Recommended CPAP 5Lab 06/03/23 - TSH 5.88, Free T4: 1.13 6Diagnosed in 2006. Followed by [facility]. On Hydroxychloroquin and cyclobenzarpine for spasms Social History Social History Type Response Smoking Status 5-9 cigarettes (betw een 1/4 to 1/2 pack)/day in last 30 days entered on: 04/04/23 Sex Patient Care team information Care Team Personnel Name: Ember ARNOLD, Terrence Position: S RN Member Role: Primary Care Nurse Name: Broderick Kidd MD Position: [facility] Resident Member Role: PCP Address: Address: [address] [place] [address]- Care Team Related Persons Name: MARIO GERARD Address: home [address] [place] [address] Name: CARI GARCÍA Address: home [address] [address] Name: NOELLE MAY
--- OUTSIDE RECORDS SUMMARY | 2024-09-07 13:55 | XMS_ITS | Continuity of Care Document ---
Author Organization [facility] Address [address] [place] [address]- Care Team Providers Care Designer Name Role Phone Otilia MEHTA, Reggie Primary Care Physic astrid Encounter [facility] Date(s): 02/02/20 - 02/09/20 [facility] [address] [place] [id number]- [facility] Encounter Diagnosis Fibromyalgia syndrome(Discharge Diagnosis) - 02/02/20 Attending Physician: Javier Benavides MD Referring Physician: Otilia MEHTA, Reggie Allergies, Adverse Reactions, Alerts No Known Medication [...] Inhalation, 2 times a day, Prescribed by Media Law Faculty Member., # 1 each, Refills 11, Tot. Refills 11, Maintenance, 03/13/18 11:00:50 EDT, Inhaler, Route to Pharmacy Electronically, [id number], [facility]/pharmacy #[id number] Start Date: 03/13/18 Status: Ordered albuterol 0.083% inhalation solution 3 mL = 2.5 mg, Neb, Every 6 hours, PRN Wheezing/Shortness of Breath, # 360 mL, 2 Refills, Maintenance, 12/04/19 15:27:00 EST, [facility]/pharmacy #[id number], 165.1, cm, 12/04/19 14:54:00 EST, Height, 86.4, kg, 08/10/19 14:42:00 EDT, Dry Weight Start Date: 12/04/19 Status: Ordered Lety Allergy 60 mg oral tablet 3 tablet = 180 mg, By Mouth, Daily, Prescribed by Retail Merchandising Specialist in [place]., # 90 tablet, 0 Refills, Maintenance, 02/16/16 14:46:50, Tablet Start Date: 02/16/16 Stop Date: 03/17/16 Status: Ordered amitriptyline 10 mg oral tablet 10 mg, 1, tablet, By Mouth, Daily at bedtime, # 30 tablet, Refills 5, Tot. Refills 5, Maintenance, 06/30/19 15:15:49 EDT, Route to Pharmacy Electronically, [id number], [facility]/pharmacy #[id number] Start Date: 06/30/19 Status: Ordered [...] 02/02/20 11:42:00 EDT, Route to Pharmacy Electronically, [facility]/pharmacy #[id number], 165.1, cm, 01/07/20 14:51:00 EST, [...] BY MOUTH DAILY,INSTR:DO NOT CRUSH OR CHEW, [facility]/pharmacy #[id number] Start Date: 07/07/19 Status: Ordered Nebulizer/Compressor See Instructions, # 1 each, Refills 0, Tot. Refills 0, Maintenance, for PRN albuterol inhaled, 11/21/17 16:27:13, Compound Start Date: 11/21/17 Status: Ordered omeprazole 20 mg oral enteric coated capsule 1 capsule = 20 mg, By Mouth, Daily, # 30 capsule, 2 Refills, Maintenance, 01/07/20 15:11:00 EST, [facility]/pharmacy #[id number], 165.1, cm, 01/07/20 14:51:00 EST, [...] tablet, 2 Refills, Maintenance, 01/07/20 15:12:00 EST, [facility]/pharmacy #[id number], 165.1, cm, 01/07/20 14:51:00 EST, [...] sleep apnea (AIRAM ), on CPAP(Confirmed) Active *[facility]/BENNETT/Leodan Rich-[phone]/[facility], active care coordination(Confirmed) Active Sjogren's syndrome(Confirmed) Active Smoker, 5-10 cigarettes per day since age 16. Quit once for 2.5 years(Confirmed) Active Systemic lupus(Confirmed) Active Chronic urticaria(Confirmed) Active Vertigo(Confirmed) Active Diagnosis Diagnosis Type Effective Dates Health Status Clinical Service Informant Fibromyalgia syndrome Discharge Diagnosis 02/02/20 Social History Social History Type Response Tobacco Started at age: 13 Y ears. Sex Female
--- OUTSIDE RECORDS SUMMARY | 2024-09-07 13:55 | XMS_ITS | Continuity of Care Document ---
Author Organization [facility] Address [address] [place] [address]- Care Team Providers Care Teacher Education Director Name Role Phone Broderick Kidd MD Primary Care Physician Encounter [facility] Date(s): 05/28/23 - 09/25/23 [facility] [address] [place] [address] [place] [id number] Attending Physician: Joy Bustamante MD Admitting Physician: Joy Bustamante MD Referring Physician: Emily Sheets MD Allergies, Adverse Reactions, Alerts No Known Medication Allergies Immunizations Given and Recorded Vaccine Date Status Refusal Reason tetanus/diphtheria/pertussis, acel(Tdap) 04/25/23 Given tetanus/diphtheria/pertussis, acel(Tdap) 1 01/28/13 Given [id number] bivalent booster vax 01/03/23 Recorded influenza virus [...] VIS DATE 11/27/2011 2Result Comment: received at [facility] on [facility] [place] 3Admin Note: flulaval vis given vis date 05/05/2012 4Result Comment: received 2nd dose at [facility] 5Result Comment: received at [facility] Medications acetaminophen 500 mg oral tablet 2 tablet, By Mouth, Every 8 hours, PRN NEEDED FOR PAIN, # 100 tablet, 3 Refills, Maintenance, 04/26/23 23:48:00 EDT, [facility], 165, cm, 04/25/23 8:59:00 EDT, Height, 100, kg, 04/04/23 16:15:00 EDT, Dry Weight Start Date: 04/26/23 Status: Ordered albuterol 0.083% inhalation solution 1 vials, Inhalation, Every 6 hours, PRN NEEDED FOR WHEEZING/SHORTNESS OF BREATH, # 300 mL, 2 Refills, Maintenance, 10/19/22 10:14:00 EST, [facility] 94991, 165.1, cm, 09/18/22 9:21:00 EST, Height Start Date: 10/19/22 Status: Ordered Wxiqw-Lorsag-Sidx 300 mg oral capsule 1 capsule, By Mouth, 2 times a day, # 60 capsule, 5 Refills, Maintenance, 05/12/23 20:20:00 EDT, [facility]/pharmacy #[id number], 165, cm, 05/08/23 10:12:00 EDT, Height, 100, kg, 04/04/23 16:15:00 EDT, Dry Weight Start Date: 05/12/23 Status: Ordered amitriptyline 10 mg oral tablet 1, tablet, By Mouth, Daily at bedtime, # 90 tablet, Refills 0, Maintenance, 08/13/23 13:34:00 EDT, Route to Pharmacy Electronically, [facility], 165, cm, 06/03/23 9:52:00 EDT, Height, 100, kg, 04/04/23 16:15:00 EDT, Dry Weight Start Date: 08/13/23 Status: Ordered ammonium lactate 5% topical lotion 1 application, Topically, 2 times a day, PRN Dry Skin, apply and rub in well, # 120 Gm, 0 Refills, Maintenance, 12/05/22 17:09:00 EST, Lotion, [facility]/pharmacy #[id number], Partial fill upon patient request [...] 11/23/22 9:13:00 EST, Route to Pharmacy Electronically, [facility]/pharmacy #[id number], Partial fill upon patient request [...] Gm, 2 Refills, Maintenance, 07/16/23 6:00:00 EDT, [facility] 10042, 25, APPLY TOPICALLY 4 TIMES A DAY, NEEDED NEUROPATHIC PAIN, 165, cm, 06/03/23 9:52:00 EDT, Height,... Start Date: 07/16/23 Status: Ordered famotidine 20 mg oral tablet 1, tablet, By Mouth, 2 times a day, # 180 tablet, Refills 1, Tot. Refills 1, Maintenance, 09/03/23 15:24:00 EDT, Route to Pharmacy Electronically, [facility]/pharmacy #[id number], 165, cm, 06/03/23 9:52:00 EDT, Height, 100, kg, 04/04/23 16:15:00 EDT, Dry Weight Start Date: 09/03/23 Status: Ordered HydrOXYzine = 25 mg, By Mouth, 2 times a day, PRN as needed for itching, 0 Refills, Maintenance, 11/28/16 10:21:04 Start Date: 11/28/16 Status: Ordered lidocaine 5% topical film 1 patch, Topically, Daily, PRN NEEDED FOR PAIN MILD, REMOVE AFTER 12 HOURS, # 30 patch, 0 Refills, Maintenance, 02/05/23 23:52:00 EDT, [facility] 49398, 30, APPLY 1 PATCH TOPICALLY DAILY,X30 DAYS NEEDED FOR PAIN MILD, REMOVE AFTER 12 HOURS, 168,... Start Date: 02/05/23 Status: Ordered loratadine 10 mg oral tablet 1, tablet, By Mouth, 2 times a day, # 60 tablet, Refills 0, Maintenance, 12/31/22 14:48:00 EST, Route to Pharmacy Electronically, [facility] 06781, 165.1, cm, 12/05/22 15:21:00 EST, Height Start Date: 12/31/22 Stop Date: 01/30/23 Status: Ordered losartan 50 mg oral tablet 50 mg, 1, tablet, By Mouth, Daily, # 30 tablet, Refills 3, Tot. Refills 3, Maintenance, 05/08/23 10:35:00 EDT, Route to Pharmacy Electronically, [facility]/pharmacy #[id number], Partial fill upon patient request if the prescription is for a schedule II opioid drug... Start Date: 05/08/23 Status: Ordered meclizine 25 mg oral tablet 1 tablet, By Mouth, 2 times a day, PRN NEEDED FOR DIZZINESS, # 60 tablet, 0 Refills, Maintenance, 05/30/23 16:12:00 EDT, [facility] 31247, 165, cm, 05/22/23 9:22:00 EDT, Height, 100, kg, 04/04/23 16:15:00 EDT, Dry Weight Start Date: 05/30/23 Status: Ordered Myrbetriq 50 mg oral tablet, extended release 1 tablet, By Mouth, Daily, DO NOT CRUSH OR CHEW., # 90 tablet, 1 Refills, Maintenance, 09/19/23 16:25:00 EST, [facility]/pharmacy #[id number], 165, cm, 09/12/23 13:12:00 EST, Height, 100, kg, 04/04/23 16:15:00 EDT, Dry Weight Start Date: 09/19/23 Status: Ordered naratriptan 2.5 mg oral tablet 1 tablet = 2.5 mg, By Mouth, Daily, PRN for migraine headache, may repeat dose once in 4 hours, # 18 tablet, 1 Refills, Acute 07/07/24 15:56:00 EDT, 07/07/23 15:56:00 EDT, Tablet, [facility]/pharmacy #[id number],Partial fill upon patient request if the prescripti... Start Date: 07/07/23 Stop Date: 07/07/24 Status: Ordered ondansetron 8 mg oral tablet 1 tablet, By Mouth, Daily, PRN NEEDED FOR NAUSEA AND VOMITING, # 30 tablet, 0 Refills, Maintenance, 09/23/23 10:53:00 EST, [facility], 165, cm, 09/12/23 13:12:00 EST, Height, 100, [...] 5 Refills, Maintenance, 11/22/22 14:08:00 EST, Capsule, [facility]/pharmacy #[id number], Partial fill upon patient request if the prescription is for a schedule II opioid drug., 165.1, cm, 11/22/22 13:38:0... Start Date: 11/22/22 Status: Ordered riboflavin 400 mg oral capsule 1 capsule = 400 mg, By Mouth, Daily, # 100 capsule, 2 Refills, Maintenance, 05/12/23 20:23:00 EDT, Capsule, [facility]/pharmacy #[id number], 165, cm, 05/08/23 10:12:00 EDT, [...] x per day BRand name covered by [facility], # 1 each, Refills 6, Tot. Refills 6, Maintenance, 09/29/21 9:04:00 EST, Instructions Replace Required Details Aerosol, Route to Pharmacy Electronically, [id number]... Start Date: 09/29/21 Status: Ordered Ventolin 90 mcg Inhaler 2, puffs, Inhalation, 4 times a day, PRN, Refills 0, Maintenance, 11/26/18 9:56:44 EST Start Date: 11/26/18 Status: Ordered Vitamin B-12 500 mcg oral tablet 1 tablet = 500 mcg, By Mouth, Daily, # 90 tablet, 1 Refills, Maintenance, 09/11/23 9:07:00 EST, Tablet, [facility]/pharmacy #[id number], Partial fill upon patient request if the prescription is for a schedule II opioid drug., 165, cm, 06/03/23 9:52:00 EDT, Height,... Start Date: 09/11/23 Stop Date: 03/09/24 Status: Ordered Vitamin B12 500 mcg oral tablet 1 tablet = 500 mcg, By Mouth, Daily, # 90 tablet, 1 Refills, Maintenance, 05/12/23 20:24:00 EDT, Tablet, [facility]/pharmacy #[id number], Partial fill upon patient request [...] Team Personnel Name: Broderick Kidd MD Position: [facility] Resident Member Role: PCP Address: Address: [address] [place] [address] [place] [address]- Care Team Related Persons Name: MARIO GERARD Address: home [address] [place] [address] Name: CARI GARCÍA Address: home [address] [place] [address] Name: NOELLE MAY
--- OUTSIDE RECORDS SUMMARY | 2024-09-07 13:55 | XMS_ITS | Continuity of Care Document ---
Author Organization [facility] Address [address] [place] [address]- Care Team Providers Care Procedure Writer Name Role Phone Broderick Kidd MD Primary Care Physician [phone] Encounter [facility] Date(s): 08/15/23 - 09/14/23 [facility] [address] [place] [address]- [place] Allergies, Adverse Reactions, Alerts No Known Medication Allergies Immunizations Given and Recorded Vaccine Date Status Refusal Reason tetanus/diphtheria/pertussis, acel(Tdap) 04/25/23 Given tetanus/diphtheria/pertussis, acel(Tdap) 1 01/28/13 Given [id number] bivalent booster vax 01/03/23 Recorded influenza virus [...] VIS DATE 11/27/2011 2Result Comment: received at [facility] on [facility] [place] 3Admin Note: flulaval vis given vis date 05/05/2012 4Result Comment: received 2nd dose at [facility] 5Result Comment: received at [facility] Medications acetaminophen 500 mg oral tablet 2 tablet, By Mouth, Every 8 hours, PRN NEEDED FOR PAIN, # 100 tablet, 3 Refills, Maintenance, 04/26/23 23:48:00 EDT, [facility] [address]21, 165, cm, 04/25/23 8:59:00 EDT, Height, 100, kg, 04/04/23 16:15:00 EDT, Dry Weight Start Date: 04/26/23 Status: Ordered albuterol 0.083% inhalation solution 1 vials, Inhalation, Every 6 hours, PRN NEEDED FOR WHEEZING/SHORTNESS OF BREATH, # 300 mL, 2 Refills, Maintenance, 10/19/22 10:14:00 EST, [facility], 165.1, cm, 09/18/22 9:21:00 EST, Height Start Date: 10/19/22 Status: Ordered Rzzou-Jsctbg-Fpbl 300 mg oral capsule 1 capsule, By Mouth, 2 times a day, # 60 capsule, 5 Refills, Maintenance, 05/12/23 20:20:00 EDT, [facility]/pharmacy #[id number], 165, cm, 05/08/23 10:12:00 EDT, Height, 100, kg, 04/04/23 16:15:00 EDT, Dry Weight Start Date: 05/12/23 Status: Ordered amitriptyline 10 mg oral tablet 1, tablet, By Mouth, Daily at bedtime, # 90 tablet, Refills 0, Maintenance, 08/13/23 13:34:00 EDT, Route to Pharmacy Electronically, [facility], 165, cm, 06/03/23 9:52:00 EDT, Height, 100, kg, 04/04/23 16:15:00 EDT, Dry Weight Start Date: 08/13/23 Status: Ordered ammonium lactate 5% topical lotion 1 application, Topically, 2 times a day, PRN Dry Skin, apply and rub in well, # 120 Gm, 0 Refills, Maintenance, 12/05/22 17:09:00 EST, Lotion, [facility]/pharmacy #[id number], Partial fill upon patient request [...] 11/23/22 9:13:00 EST, Route to Pharmacy Electronically, [facility]/pharmacy #[id number], Partial fill upon patient request [...] Refills, Maintenance, 07/16/23 6:00:00 EDT, [facility], 25, APPLY TOPICALLY 4 TIMES A DAY, NEEDED NEUROPATHIC PAIN, 165, cm, 06/03/23 9:52:00 EDT, Height,... Start Date: 07/16/23 Status: Ordered famotidine 20 mg oral tablet 1, tablet, By Mouth, 2 times a day, # 180 tablet, Refills 1, Tot. Refills 1, Maintenance, 09/03/23 15:24:00 EDT, Route to Pharmacy Electronically, [facility]/pharmacy #[id number], 165, cm, 06/03/23 9:52:00 EDT, [...] Refills, Maintenance, 02/05/23 23:52:00 EDT, [facility], 30, APPLY 1 PATCH TOPICALLY DAILY,X30 DAYS NEEDED FOR PAIN MILD, REMOVE AFTER 12 HOURS, 168,... Start Date: 02/05/23 Status: Ordered loratadine 10 mg oral tablet 1, tablet, By Mouth, 2 times a day, # 60 tablet, Refills 0, Maintenance, 12/31/22 14:48:00 EST, Route to Pharmacy Electronically, [facility] 31635, 165.1, cm, 12/05/22 15:21:00 EST, Height Start Date: 12/31/22 Stop Date: 01/30/23 Status: Ordered losartan 50 mg oral tablet 50 mg, 1, tablet, By Mouth, Daily, # 30 tablet, Refills 3, Tot. Refills 3, Maintenance, 05/08/23 10:35:00 EDT, Route to Pharmacy Electronically, [facility]/pharmacy #[id number], Partial fill upon patient request if the prescription is for a schedule II opioid drug... Start Date: 05/08/23 Status: Ordered meclizine 25 mg oral tablet 1 tablet, By Mouth, 2 times a day, PRN NEEDED FOR DIZZINESS, # 60 tablet, 0 Refills, Maintenance, 05/30/23 16:12:00 EDT, [facility], 165, cm, 05/22/23 9:22:00 EDT, Height, 100, kg, 04/04/23 16:15:00 EDT, Dry Weight Start Date: 05/30/23 Status: Ordered Myrbetriq 50 mg oral tablet, extended release 1 tablet, By Mouth, Daily, DO NOT CRUSH OR CHEW., # 30 tablet, 1 Refills, Maintenance, 08/13/23 8:42:00 EDT, [facility], 165, cm, 06/03/23 9:52:00 EDT, Height, 100, kg, 04/04/23 16:15:00 EDT, Dry Weight Start Date: 08/13/23 Status: Ordered naratriptan 2.5 mg oral tablet 1 tablet = 2.5 mg, By Mouth, Daily, PRN for migraine headache, may repeat dose once in 4 hours, # 18 tablet, 1 Refills, Acute 07/07/24 15:56:00 EDT, 07/07/23 15:56:00 EDT, Tablet, [facility]/pharmacy #[id number],Partial fill upon patient request if the prescripti... Start Date: 07/07/23 Stop Date: 07/07/24 Status: Ordered ondansetron 8 mg oral tablet 1 tablet = 8 mg, By Mouth, Daily, PRN Nausea, For bad nausea days., # 30 tablet, 0 Refills, Maintenance, 06/03/23 10:02:00 EDT, Tablet, [id number], Partial fill upon patient [...] each, 0 Refills, Maintenance, 08/15/23 9:02:00 EDT, [facility]/pharmacy #[id number], Colonoscopy date 09/23/23 ; may [...] 5 Refills, Maintenance, 11/22/22 14:08:00 EST, Capsule, [facility]/pharmacy #[id number], Partial fill upon patient request if the prescription is for a schedule II opioid drug., 165.1, cm, 11/22/22 13:38:0... Start Date: 11/22/22 Status: Ordered riboflavin 400 mg oral capsule 1 capsule = 400 mg, By Mouth, Daily, # 100 capsule, 2 Refills, Maintenance, 05/12/23 20:23:00 EDT, Capsule, [facility]/pharmacy #[id number], 165, cm, 05/08/23 10:12:00 EDT, [...] per day BRand name covered by [facility], # 1 each, Refills 6, Tot. Refills 6, Maintenance, 09/29/21 9:04:00 EST, Instructions Replace Required Details Aerosol, Route to Pharmacy Electronically, [id number]... Start Date: 09/29/21 Status: Ordered Ventolin 90 mcg Inhaler 2, puffs, Inhalation, 4 times a day, PRN, Refills 0, Maintenance, 11/26/18 9:56:44 EST Start Date: 11/26/18 Status: Ordered Vitamin B-12 500 mcg oral tablet 1 tablet = 500 mcg, By Mouth, Daily, # 90 tablet, 1 Refills, Maintenance, 09/11/23 9:07:00 EST, Tablet, [facility]/pharmacy #[id number], Partial fill upon patient request if the prescription is for a schedule II opioid drug., 165, cm, 06/03/23 9:52:00 EDT, Height,... Start Date: 09/11/23 Stop Date: 03/09/24 Status: Ordered Vitamin B12 500 mcg oral tablet 1 tablet = 500 mcg, By Mouth, Daily, # 90 tablet, 1 Refills, Maintenance, 05/12/23 20:24:00 EDT, Tablet, [facility]/pharmacy #[id number], Partial fill upon patient request [...] Team Personnel Name: Broderick Kidd MD Position: [facility] Resident Member Role: PCP Address: Address: [address] [place] [address]- Care Team Related Persons Name: MARIO GERARD Address: home [address] [place] [address] Name: CARI GARCÍA Address: home [address] [place] [address] Name: NOELLE MAY
--- OUTSIDE RECORDS SUMMARY | 2024-09-07 13:55 | XMS_ITS | Continuity of Care Document ---
Author Organization [facility] Adult Medicine Address [address] [place] [address]- Care Team Providers Care Shaker Out Name Role Phone Broderick Kidd MD Primary Care Physician Encounter [facility] [place] Date(s): 12/26/23 - 03/05/24 [facility] Adult Medicine [address] [place] [phone] Attending Physician: José Miguel Bustos Admitting Physician: José Miguel Bustos Referring Physician: Broderick Kidd MD Allergies, Adverse Reactions, Alerts No Known Allergies [...] Gi diane influenza virus vaccine, inactivated 09/04/11 Zacehry rded tetanus/diphtheria/pertussis, acel(Tdap) 04/25/23 Given tetanus/diphtheria/pertussis, acel(Tdap) 3 01/28/13 Given [id number] bivalent booster vax 01/03/23 Recorded SARS-CoV-2 (COVID-19) [...] 07/05/08 Recor ded 1Result Comment: received at [facility] on [facility] in [place] 2Admin Note: flulaval vis given vis date 05/05/2012 3Admin Note: VIS GIVEN VIS DATE 11/27/2011 4Result Comment: received 2nd dose at [facility] 5Result Comment: received at [facility] Medications acetaminophen 500 mg oral tablet 2 tablet, By Mouth, Every 8 hours, PRN NEEDED FOR PAIN, # 100 tablet, 3 Refills, Maintenance, 10/11/23 11:48:00 EST, [facility]/pharmacy #[id number], 165, cm, 09/27/23 10:21:00 EST, Height, 100, kg, 04/04/23 16:15:00 EDT, Dry Weight Start Date: 10/11/23 Status: Ordered Zcuyu-Qunpto-Rkmm 300 mg oral capsule 1 capsule, By Mouth, 2 times a day, # 60 capsule, 5 Refills, Maintenance, 05/12/23 20:20:00 EDT, [facility]/pharmacy #[id number], 165, cm, 05/08/23 10:12:00 EDT, Height, 100, kg, 04/04/23 16:15:00 EDT, Dry Weight Start Date: 05/12/23 Status: Ordered amitriptyline 10 mg oral tablet 1, tablet, By Mouth, Daily at bedtime, # 90 tablet, Refills 1, Tot. Refills 1, Maintenance, 12/27/23 16:05:00 EST, Route to Pharmacy Electronically, [facility]/pharmacy #[id number], 165, cm, 10/11/23 14:32:00 EST, Height, 100, kg, 04/04/23 16:15:00 EDT, Dry Weight Start Date: 12/27/23 Status: Ordered ammonium lactate 5% topical lotion 1 application, Topically, 2 times a day, PRN Dry Skin, apply and rub in well, # 120 Gm, 0 Refills, Maintenance, 12/05/22 17:09:00 EST, Lotion, [facility]/pharmacy #[id number], Partial fill upon patient [...] 11/23/22 9:13:00 EST, Route to Pharmacy Electronically, [facility]/pharmacy #[id number], Partial fill upon patient [...] Gm, 2 Refills, Maintenance, 01/20/24 9:29:00 EDT, [facility] STORE [id number], 25, APPLY TOPICALLY 4 TIMES A DAY, NEEDED NEUROPATHIC PAIN, 165, cm, 10/11/23 14:32:00 EST, Height... Start Date: 01/20/24 Status: Ordered famotidine 20 mg oral tablet 1, tablet, By Mouth, 2 times a day, # 180 tablet, Refills 1, Maintenance, 02/24/24 12:56:00 EDT, Route to Pharmacy Electronically, [facility] STORE [id number], 165, cm, 02/06/24 9:54:00 EDT, Height, 100, kg, 04/04/23 16:15:00 EDT, Dry Weight Start Date: 02/24/24 Status: Ordered hydrochlorothiazide 25 mg oral tablet 1, tablet, By Mouth, Daily, # 90 tablet, Refills 1, Tot. Refills 1, Maintenance, 12/23/23 17:10:00 EST, Route to Pharmacy Electronically, [facility]/pharmacy #[id number], 165, cm, 10/11/23 14:32:00 EST, [...] patch, 0 Refills, Maintenance, 02/05/23 23:52:00 EDT, [facility] STORE [id number], 30, APPLY 1 PATCH TOPICALLY DAILY,X30 DAYS NEEDED FOR PAIN MILD, REMOVE AFTER 12 HOURS, 168,... Start Date: 02/05/23 Status: Ordered loratadine 10 mg oral tablet 1, tablet, By Mouth, 2 times a day, # 60 tablet, Refills 0, Maintenance, 12/31/22 14:48:00 EST, Route to Pharmacy Electronically, [id number], 165.1, cm, 12/05/22 15:21:00 EST, Height Start Date: 12/31/22 Stop Date: 01/30/23 Status: Ordered losartan 50 mg oral tablet 50 mg, 1, tablet, By Mouth, Daily, # 90 tablet, Refills 1, Tot. Refills 1, Maintenance, 10/02/23 13:31:00 EST, Route to Pharmacy Electronically, [facility]/pharmacy #[id number], Partial fill upon patient request if the prescription is for a schedule II opioid drug... Start Date: 10/02/23 Status: Ordered meclizine 25 mg oral tablet 1 tablet, By Mouth, 2 times a day, PRN NEEDED FOR DIZZINESS, # 60 tablet, 0 Refills, Maintenance, 05/30/23 16:12:00 EDT, [facility], 165, cm, 05/22/23 9:22:00 EDT, Height, 100, [...] Refills, Maintenance, 09/23/23 10:53:00 EST, [id number], 165, cm, 09/12/23 13:12:00 EST, Height, 100, [...] capsule, 5 Refills, Maintenance, 02/27/24 6:10:00EDT, Capsule, [facility]/pharmacy #[id number], Partial fill upon patient request if the prescription is for a schedule II opioid drug., 165, cm, 02/06/24 9:54:00 ED... Start Date: 02/27/24 Status: Ordered riboflavin 400 mg oral capsule 1 capsule = 400 mg, By Mouth, Daily, # 100 capsule, 2 Refills, Maintenance, 05/12/23 20:23:00 EDT, Capsule, [facility]/pharmacy #[id number], 165, cm, 05/08/23 10:12:00 EDT, Height, 100, kg, 04/04/23 16:15:00 EDT,Dry Weight Start Date: 05/12/23 Status: Ordered RIBOFLAVIN 400 MG TABLET RIBOFLAVIN 400 MG TABLET, 1, tablet, By Mouth, Daily, # 30 tablet, 9 Refills, 165.1, cm, 10/25/21 10:10:00 EST, Height Start Date: 01/03/22 Status: Ordered RIBOFLAVIN 400 MG TABLET RIBOFLAVIN [...] Replace Required Details Aerosol, Route toPharmacy Electronically, [id number]... Start Date: 10/11/23 Status: Ordered Ventolin HFA 108 mcg/inh inhalation aerosol with adapter 2 puffs, Inhalation, Every 6 hours, PRN NEEDED FOR WHEEZE OR FOR SHORTNESS OF BREATH, # 18 each,3 Refills, Maintenance, 02/01/24 11:42:00 EDT, [facility] STORE 40763, 165, cm, 10/11/23 14:32:00 EST, Height, 100, kg, 04/04/23 16:15:00 EDT, Dry Weight Start Date: 02/01/24 Status: Ordered VITAMIN B-12 1000MCG TABLET VITAMIN B-12 1000MCG TABLET, 1, tablet, By Mouth, Daily, # 30 Unknown, 5 Refills, Maintenance, 02/27/24 6:09:00 EDT, 165, cm, 02/06/24 9:54:00 EDT, Height, 100, kg, 04/04/23 16:15:00 EDT, Dry Weight Start Date: 02/27/24 Status: Ordered Vitamin B-12 500 mcg oral tablet 1 tablet = 500 mcg, By Mouth, Daily, # 90 tablet, 1 Refills, Maintenance, 09/11/23 9:07:00 EST, Tablet, [id number], Partial fill upon patient request if the prescription is for a schedule II opioid drug., 165, cm, 06/03/23 9:52:00 EDT, Height,... Start Date: 09/11/23 Stop Date: 03/09/24 Status: Ordered Vitamin B12 500 mcg oral tablet 1 tablet = 500 mcg, By Mouth, Daily, # 90 tablet, 1 Refills, Maintenance, 05/12/23 20:24:00 EDT, Tablet, [id number], Partial fill upon patient request if the prescription is for a schedule IIopioid drug., 165, cm, 05/08/23 10:12:00 EDT, Heigh... Start Date: 05/12/23 Status: Ordered Vitamin C By Mouth, Daily, 0 Refills, Maintenance, 01/07/19 11:24:12 EST Start Date: 01/07/19 Status: Ordered Voltaren Arthritis Pain 1% topical gel = 2 Gm, Topically, 4 times a day, for pain, # 240 Gm, 2 Refills, Maintenance, 02/06/24 9:59:00 EDT,[id number], Partial fill upon patient request if the prescription is for a schedule II opioid drug., 2 Gm Topically 4 times a day,Instr:for marge... Start Date: 02/06/24 Status: Ordered Problem List Condition Confirmation Course [...] Active 1Follows with therapist and psychiatrist at [place] per previous notes 2PFTs show no obstruction. However has h/o asthma. Ct chest in 07/27 and pulm note says restrictive lung disease mild similiar to findings on PFT 3Follows with therapist and psychiatrist at [place] per previous notes 4Sleep study in 2016. [...] S Resident Member Role: PCP Address: Address: [address] [place] [address] [place] [address]- Care Team Related Persons Name: MARIO GERARD Address: home [address] [place] [address] Name: CARI GARCÍA Address: home [address] [place] [id number] Name: NOELLE MAY
--- OUTSIDE RECORDS SUMMARY | 2024-09-07 13:55 | XMS_ITS | Continuity of Care Document ---
Author Organization [facility] Address [address] [address]- Care Team Providers Care Fast Food Cook Name Role Phone Broderick Kidd MD Primary Care Physician Encounter [facility] Date(s): 05/09/23 - 05/16/[address] [address]- Attending Physician: Emily Sheets MD Admitting Physician: Emily Sheets MD Referring Physician: Emily Sheets MD Allergies, Adverse Reactions, Alerts No Known Medication Allergies Immunizations Given and Recorded Vaccine Date Status Refusal Reason tetanus/diphtheria/pertussis, acel(Tdap) 04/25/23 Given tetanus/diphtheria/pertussis, acel(Tdap) 1 01/28/13 Given [id number] bivalent booster vax 01/03/23 Recorded influenza virus [...] VIS DATE 11/27/2011 2Result Comment: received at [facility] on [facility] in [place] 3Admin Note: flulaval vis given vis date 05/05/2012 4Result Comment: received 2nd dose at [facility] 5Result Comment: received at [facility] Medications acetaminophen 500 mg oral tablet 2 tablet, By Mouth, Every 8 hours, PRN NEEDED FOR PAIN, # 100 tablet, 3 Refills, Maintenance, 04/26/23 23:48:00 EDT, [facility] STORE 48523, 165, cm, 04/25/23 8:59:00 EDT, Height, 100, kg, 04/04/23 16:15:00 EDT, Dry Weight Start Date: 04/26/23 Status: Ordered albuterol 0.083% inhalation solution 1 vials, Inhalation, Every 6 hours, PRN NEEDED FOR WHEEZING/SHORTNESS OF BREATH, # 300 mL, 2 Refills, Maintenance, 10/19/22 10:14:00 EST, [facility] STORE 45147, 165.1, cm, 09/18/22 9:21:00 EST, Height Start Date: 10/19/22 Status: Ordered Sfgps-Jgycms-Hvkf 300 mg oral capsule 1 capsule, By Mouth, 2 times a day, # 60 capsule, 5 Refills, Maintenance, 05/12/23 20:20:00 EDT, [facility]/pharmacy #[id number], 165, cm, 05/08/23 10:12:00 EDT, Height, 100, kg, 04/04/23 16:15:00 EDT, Dry Weight Start Date: 05/12/23 Status: Ordered amitriptyline 10 mg oral tablet 1, tablet, By Mouth, Daily at bedtime, # 30 tablet, Refills 3, Tot. Refills 3, Maintenance, 05/16/23 10:48:00 EDT, Route to Pharmacy Electronically, [facility]/pharmacy #[id number], 165, cm, 05/08/23 10:12:00 EDT, Height, 100, kg, 04/04/23 16:15:00 EDT, Dry Weight Start Date: 05/16/23 Status: Ordered ammonium lactate 5% topical lotion 1 application, Topically, 2 times a day, PRN Dry Skin, apply and rub in well, # 120 Gm, 0 Refills, Maintenance, 12/05/22 17:09:00 EST, Lotion, [facility]/pharmacy #[id number], Partial fill upon patient request [...] Date: 05/08/23 Stop Date: 05/08/24 Status: Ordered [facility] RLF 5 [...] 11/23/22 9:13:00 EST, Route to Pharmacy Electronically, [facility]/pharmacy #[id number], Partial fill upon patient request [...] Gm, 2 Refills, Maintenance, 05/01/23 20:57:00 EDT, [facility] STORE 03364, 25, APPLY TOPICALLY 4 TIMES A DAY, NEEDED NEUROPATHIC PAIN, 165, cm, 04/25/23 8:59:00 EDT, Height... Start Date: 05/01/23 Status: Ordered famotidine 20 mg oral tablet 1, tablet, By Mouth, 2 times a day, # 60 tablet, Refills 5, Tot. Refills 5, Maintenance, 02/27/23 10:38:00 EDT, Route to Pharmacy Electronically, [facility]/pharmacy #[id number], 168, cm, 01/15/23 7:16:00 EDT, [...] patch, 0 Refills, Maintenance, 02/05/23 23:52:00 EDT, [facility] STORE 80583, 30, APPLY 1 PATCH TOPICALLY DAILY,X30 DAYS NEEDED FOR PAIN MILD, REMOVE AFTER 12 HOURS, 168,... Start Date: 02/05/23 Status: Ordered loratadine 10 mg oral tablet 1, tablet, By Mouth, 2 times a day, # 60 tablet, Refills 0, Maintenance, 12/31/22 14:48:00 EST, Route to Pharmacy Electronically, [facility] STORE [id number], 165.1, cm, 12/05/22 15:21:00 EST, Height Start Date: 12/31/22 Stop Date: 01/30/23 Status: Ordered losartan 50 mg oral tablet 50 mg, 1, tablet, By Mouth, Daily, # 30 tablet, Refills 3, Tot. Refills 3, Maintenance, 05/08/23 10:35:00 EDT, Route to Pharmacy Electronically, [facility]/pharmacy #[id number], Partial fill upon patient request if the prescription is for a schedule II opioid drug... Start Date: 05/08/23 Status: Ordered meclizine 25 mg oral tablet 1 tablet, By Mouth, 2 times a day, PRN NEEDED FOR DIZZINESS, Take as needed for dizziness, # 60 tablet, 2 Refills, Maintenance, 12/05/22 16:13:00 EST, [facility]/pharmacy #207, 165.1, cm, 12/05/22 15:21:00 EST, Height Start [...] tablet, 11 Refills, Maintenance, 07/31/22 16:07:00 EDT, [facility]/pharmacy #[id number], 165.1, cm, 07/12/22 17:15:00 EDT, Height Start Date: 07/31/22 Status: Ordered NuLYTELY with Flavor Packs oral powder for reconstitution 240 mL, By Mouth, Every 10 minutes, May substitute any PEG 3350 solution available SPLIT PREP METHOD, # 1 each, 0 Refills, Maintenance, 01/14/23 17:00:00 EDT, REC Powder, [facility]/pharmacy #[id number], test date 01/15/23, 240 mL By Mouth Every 10 minutes,Instr:M... Start Date: 01/14/23 Status: Ordered Plaquenil 200 mg oral tablet 400 mg, 2, tablet, By Mouth, Daily, Refills 0, Maintenance, 11/28/16 10:20:10 EST Start Date: 11/28/16 Status: Ordered pregabalin 200 mg oral capsule 1 capsule = 200 mg, By Mouth, 2 times a day, # 60 capsule, 5 Refills, Maintenance, 11/22/22 14:08:00 EST, Capsule, [facility]/pharmacy #[id number], Partial fill upon patient request if the prescription is for a schedule II opioid drug., 165.1, cm, 11/22/22 13:38:0... Start Date: 11/22/22 Status: Ordered riboflavin 400 mg oral capsule 1 capsule = 400 mg, By Mouth, Daily, # 100 capsule, 2 Refills, Maintenance, 05/12/23 20:23:00 EDT, Capsule, [facility]/pharmacy #[id number], 165, cm, 05/08/23 10:12:00 EDT, [...] 14:01:17 EST Start Date: 09/22/19 Status: Ordered rizatriptan 10 mg oral tablet 1 tablet = 10 mg, By Mouth, Daily, PRN for migraine headache, may repeat dose every 2 hours up to amaximum of 3, # 12 tablet, 1 Refills, Acute 05/12/24 20:19:00 EDT, 05/12/23 20:19:00 EDT, Tablet, [id number], Partial fill upon patient request... Start Date: 05/12/23 Stop Date: 05/12/24 Status: Ordered Singulair 10 mg oral tablet 1 tablet = 10 mg, By Mouth, Daily in PM, # 30 tablet, 0 Refills, Maintenance, 12/26/15 10:10:46, Tablet Start Date: 12/26/15 Status: Ordered Spacer Spacer, See Instructions, # 1 units, Refills 0, Tot. Refills 0, Maintenance, Use w inhaler, 10/02/16 12:30:34, Compound Start Date: 10/02/16 Status: Ordered Symbicort 80mcg/4.5mcg Inhaler See Instructions, PRN, 1 puff 2 x per day BRand name covered by [facility], # 1 each, Refills 6, Tot. Refills 6, Maintenance, 09/29/21 9:04:00 EST, Instructions Replace Required Details Aerosol, Route to Pharmacy Electronically, [id number]... Start Date: 09/29/21 Status: Ordered Ventolin 90 mcg Inhaler 2, puffs, Inhalation, 4 times a day, PRN, Refills 0, Maintenance, 11/26/18 9:56:44 EST Start Date: 11/26/18 Status: Ordered Vitamin B12 500 mcg oral tablet 1 tablet = 500 mcg, By Mouth, Daily, # 90 tablet, 1 Refills, Maintenance, 05/12/23 20:24:00 EDT, Tablet, [facility]/pharmacy #[id number], Partial fill upon patient request [...] Refills, Maintenance, 09/20/21 15:14:00 EST, Chew Tablet, [facility]/pharmacy #[id number], Partial fill upon patient request [...] Active Social History Social History Type Response Smoking Status 5-9 cigarettes (betw een 1/4 to 1/2 pack)/day in last 30 days entered on: 04/04/23 Sex Female US Heart * Event Display: Echocardiogram - Complete Authored Date: * Event Display: Echocardiogram - Complete Authored Date: Transthoracic Echocardiography Report (TTE) Patient Demographics Patient Name TAYLOR SALAZAR Date of Study 05/09/2023 Corporate Gender Female Facility Race Black Ethnicity or Date of 1975 Height: 64.96 inches Age 48 year(s) Weight: 224.88 pounds Accession Number [id number] BSA: 2.08 m2 Room Number BMI: 37.47 kg/m2 Referring Physician Emily Sheets MD Interpreting Arian Levy MD Physician Oceanologist Russell Linn Indications Peripheral edema. Study Data Type of Study TTE procedure:Echo Complete-Doppler, Colorflow, M-Mode. Study Date05/09/2023 Start Time: 03:21 PM Study Location: [facility] Echo Study Status: Echo lab Patient Status: Routine Technical Quality: Technically difficult due to body habitus. Blood Pressure:134/85 mmHg EKG: Within normal limits HR: 71 bpm 2D Measurements LV Diastolic Dimension: 4.5 cm LV Systolic Dimension: 2.6 cm LV Septum Diastolic: 1 cm LV PW Diastolic: 1 cm AO Root Dimension: 3.3 cm LA Dimension: 3.2 cm LA ESV (BP):36.2 ml LVOT Stroke Volume: 85.41 ml LA ESV Index: 17 ml/m2 Stroke Volume Index41.06 ml/m2 LVOT: 2 cm Cardiac Index:2.91 l/min/m2 Ascending Aorta:3 cm Doppler Measurements AV Peak Velocity: 152 cm/s MV Peak E-Wave: 90 cm/s AV Peak Gradient: 9.24 mmHg MV Peak A-Wave: 59.6 cm/s AV Mean Gradient: 6 mmHg MV E/A Ratio: 1.51 AV VTI:31.2 cm MV P1/2t: 80 msec LVOT Peak Velocity: 136 cm/s LVOT VTI27.2 cm MV Deceleration Time: 274 msec AV Area (Continuity):2.74 cm2 MV Area (PHT): 2.75 cm2 TR Velocity:190 cm/s TR Gradient:14.44 mmHg Estimated RAP:3 mmHg Estimated RVSP: 17.4 mmHg E' Septal Velocity: 8.49 cm/s E' Lateral Velocity: 11.1 cm/s E/Med E':10.31418 E/Lat E':[id number] Cardiac Anatomy Left Ventricle/Interventricular Septum Left ventricular size and wall thickness are normal. The LV systolic function is vigorous. The left ventricular ejection fraction is 65-70 %. There are no regional wall motion abnormalities. Normal diastolic function. Left Atrium/Interatrial Septum The left atrium is normal in size. Aortic Valve The aortic valve is trileaflet and normal in structure and function. There is no aortic stenosis or insufficiency. Mitral Valve The mitral valve opening is normal. There is trivial mitral regurgitation. Aorta The ascending aorta and aortic root are normal in size. Right Ventricle The right ventricle is normal in size and function. Right Atrium The right atrium is normal in size. Pulmonic Valve The pulmonic valve is poorly visualized. Tricuspid Valve The tricuspid valve leaflet opening is normal. There is trace tricuspid valve regurgitation. Pumonary Artery The pulmonary artery systolic pressure estimation is within normal limits. Venous Structures There is normal pulmonary venous flow. The inferior vena cava size is normal with normal inspiratory collapse. The central venous pressure estimation is 3 mmHg. Pericardium/Extracardiac There is no pericardial effusion. Summary 1. Left ventricular size and wall thickness are normal. The LV systolic function is vigorous. The left ventricular ejection fraction is 65-70 %. There are no regional wall motion abnormalities. Normal diastolic function. 2. The right ventricle is normal in size and function. The pulmonary artery systolic pressure estimation is within normal limits. 3. Biatrial size is normal. 4. There is no hemodynamically significant valvular disease. 5. The central venous pressure estimation is normal, 3 mmHg. Comparison No prior study available for comparison. Signature Patient Care team information Care Team Personnel Name: Broderick Kidd MD Position: [facility] Resident Member Role: PCP Address: Address: [address] [place] [address]- Care Team Related Persons Name: MARIO GERARD Address: home [address] [place] [address] Name: CARI GARCÍA Address: home [address] [place] [address] Name: NOELLE MAY
--- OUTSIDE RECORDS SUMMARY | 2024-09-07 13:55 | XMS_ITS | Continuity of Care Document ---
Author Organization [facility] Address [address], [address], [address] [place] [address]- Care Team Providers Care Janitor Custodian Name Role Phone Otilia MEHTA, Kav Primary Care Physic astrid [place] [facility] [place] 03[place]20 [facility] [address], [address], [address] [place] [address]- [facility] Attending Physician: Vianey Goldsmith MD Allergies, Adverse Reactions, [...] Inhalation, 2 times a day, Prescribed by Hazardous Substances Engineer., # 1 each, Refills , Tot. Refills 11, Maintenance, 03/13/18 11:00:50 EDT, Inhaler, Route to Pharmacy Electronically, [id number], [facility]/pharmacy #[id number] Start Date: 03/13/18 Status: Ordered albuterol 0.083% inhalation solution 3 mL = 2.5 mg, Neb, Every 6 hours, PRN Wheezing/Shortness of Breath, # 360 mL, 2 Refills, Maintenance, 12/04/19 15:27:00 EST, [facility]/pharmacy #207, 165.1, cm, 12/04/19 14:54:00 EST, Height, 86.4, kg, 08/10/19 14:42:00 EDT, Dry Weight Start Date: 12/04/19 Status: Ordered Lety Allergy 60 mg oral tablet 3 tablet = 180 mg, By Mouth, Daily, Prescribed by Courtroom Deputy Or Calendar Clerk in [place]., # 90 tablet, 0 Refills, Maintenance, 02/16/16 14:46:50, Tablet Start Date: 02/16/16 Stop Date: 03/17/16 Status: Ordered amitriptyline 10 mg oral tablet 10 mg, 1, tablet, By Mouth, Daily at bedtime, # 30 tablet, Refills 5, Tot. Refills 5, Maintenance, 06/30/19 15:15:49 EDT, Route to Pharmacy Electronically, [id number], [facility]/pharmacy #[id number] Start Date: 06/30/19 Status: Ordered [...] 02/02/20 11:42:00 EDT, Route to Pharmacy Electronically, [facility]/pharmacy #[id number], 165.1, cm, 01/07/20 14:51:00 EST, [...] BY MOUTH DAILY,INSTR:DO NOT CRUSH OR CHEW, [facility]/pharmacy #207 Start Date: 07/07/19 Status: Ordered Nebulizer/Compressor See Instructions, # 1 each, Refills 0, Tot. Refills 0, Maintenance, for PRN albuterol inhaled, 11/21/17 16:27:13, Compound Start Date: 11/21/17 Status: Ordered omeprazole 20 mg oral enteric coated capsule 1 capsule = 20 mg, By Mouth, Daily, # 30 capsule, 2 Refills, Maintenance, 01/07/20 15:11:00 EST, [facility]/pharmacy #[id number], 165.1, cm, 01/07/20 14:51:00 EST, [...] tablet, 2 Refills, Maintenance, 01/07/20 15:12:00 EST, [facility]/pharmacy #[id number], 165.1, cm, 01/07/20 14:51:00 EST, [...] apnea (AIRAM ), on CPAP(Confirmed) Active *BHN/BHBENNETT/Leodan Rich-[phone]/Health intermediate, active care coordination(Confirmed) Active Sjogren's syndrome(Confirmed) Active Smoker, 5-10 cigarettes per day since age 16. Quit once for 2.5 years(Confirmed) Active Systemic lupus(Confirmed) Active Chronic urticaria(Confirmed) Active Vertigo(Confirmed) Active Social History Social History Type Response Tobacco Started at age: 13 Y ears. Sex Female
--- OUTSIDE RECORDS SUMMARY | 2024-09-07 13:55 | XMS_ITS | Continuity of Care Document ---
[facility] Organization [facility] Address [address], [address] [place] [address]- Care Team Providers Care Stage Technician Name Role Phone Giana MEHTA, Ashley Primary Care Physician Encounter [facility] Date(s): 08/02/20 - [facility] [address], [address] [place] [address]- [facility] Attending Physician: Sosa Joy Admitting Physician: AdmSosa [...] Inhalation, 2 times a day, Prescribed by Cryptoanalysis Teacher., # 1 each, Refills 11, Tot. Refills 11, Maintenance, 03/13/18 11:00:50 EDT, Inhaler, Route to Pharmacy Electronically, [id number], [facility]/pharmacy #[id number] Start Date: 03/13/18 Status: Ordered albuterol 0.083% inhalation solution 3 mL = 2.5 mg, Neb, Every 6 hours, PRN Wheezing/Shortness of Breath, # 360 mL, 2 Refills, Maintenance, 12/04/19 15:27:00 EST, [facility]/pharmacy #[id number], 165.1, cm, 12/04/19 14:54:00 EST, Height, 86.4, kg, 08/10/19 14:42:00 EDT, Dry Weight Start Date: 12/04/19 Status: Ordered Lety Allergy 60 mg oral tablet 3 tablet = 180 mg, By Mouth, Daily, Prescribed by Sales Representative in [place]., # 90 tablet, 0 Refills, Maintenance, 02/16/16 14:46:50, Tablet Start Date: 02/16/16 Stop Date: 03/17/16 Status: Ordered Alpha Lipoic 300 mg oral tablet 1 tablet = 300 mg, By Mouth, 2 times a day, # 60 tablet, 3 Refills, Maintenance, 06/09/20 11:40:00 EDT, Tablet, [facility]/pharmacy #207, 165.1, cm, 05/10/20 10:01:00 EDT, Height, 86.4, kg, 08/10/19 14:42:00 EDT, Dry Weight Start Date: 06/09/20 Status: Ordered amitriptyline 10 mg oral tablet 10 mg, 1, tablet, By Mouth, Daily at bedtime, # 30 tablet, Refills 5, Tot. Refills 5, Maintenance, 08/02/20 12:33:00 EDT, Route to Pharmacy Electronically, [facility]/pharmacy #207, 165.1, cm, 05/10/20 10:01:00 EDT, [...] tablet, 1 Refills, Maintenance, 06/09/20 11:40:00 EDT, [facility]/pharmacy #[id number], 165.1, cm, [...] Refills, Maintenance, 08/02/20 12:33:00 EDT, ER Tablet, [facility]/pharmacy #[id number], 165.1, cm, [...] BY MOUTH DAILY,INSTR:DO NOT CRUSH OR CHEW, [facility]/pharmacy #[id number] Start Date: 07/07/19 Status: Ordered Nebulizer/Compressor See Instructions, # 1 each, Refills 0, Tot. Refills 0, Maintenance, for PRN albuterol inhaled, 11/21/17 16:27:13, Compound Start Date: 11/21/17 Status: Ordered omeprazole 20 mg oral enteric coated capsule 1 capsule = 20 mg, By Mouth, Daily, # 30 capsule, 2 Refills, Maintenance, 04/14/20 7:47:00 EDT, [facility]/pharmacy #[id number], 165.1, cm, [...] tablet, 2 Refills, Maintenance, 01/07/20 15:12:00 EST, [facility]/pharmacy #[id number], 165.1, [...] apnea (AIRAM ), on CPAP(Confirmed) Active *BHN/BHBENNETT/Leodan Rich-[phone]/Health halfway, active care coordination(Confirmed) Active Sjogren's syndrome(Confirmed) Active Smoker, 5-10 cigarettes per day since age 16. Quit once for 2.5 years(Confirmed) Active Systemic lupus(Confirmed) Active Chronic urticaria(Confirmed) Active Vertigo(Confirmed) Active Social History Social History Type Response Tobacco Started at age: 13 Y ears. Sex Female
--- OUTSIDE RECORDS SUMMARY | 2024-09-07 13:56 | XMS_ITS | Continuity of Care Document ---
Author Organization [facility] Address [address] [address]- Care Team Providers Care Molding Line Assistant Name Role Phone Broderick Kidd MD Primary Care Physician [phone] Encounter [facility] Date(s): 05/09/23 - 06/08/23 [facility] [address] [address]- Attending Physician: Sosa Joy Admitting Physician: AdmSosa jean baptiste Referring Physician: AdmtrSosa Allergies, Adverse Reactions, Alerts No Known Medication Allergies Immunizations Given and Recorded Vaccine Date Status Refusal Reason tetanus/diphtheria/pertussis, acel(Tdap) 04/25/23 Given tetanus/diphtheria/pertussis, acel(Tdap) 1 01/28/13 Given [id number] bivalent booster vax 01/03/23 Recorded influenza virus [...] VIS DATE 11/27/2011 2Result Comment: received at [facility] on [facility] in [place] 3Admin Note: flulaval vis given vis date 05/05/2012 4Result Comment: received 2nd dose at [facility] 5Result Comment: received at [facility] Medications acetaminophen 500 mg oral tablet 2 tablet, By Mouth, Every 8 hours, PRN NEEDED FOR PAIN, # 100 tablet, 3 Refills, Maintenance, 04/26/23 23:48:00 EDT, [facility] STORE 31852, 165, cm, 04/25/23 8:59:00 EDT, Height, 100, kg, 04/04/23 16:15:00 EDT, Dry Weight Start Date: 04/26/23 Status: Ordered albuterol 0.083% inhalation solution 1 vials, Inhalation, Every 6 hours, PRN NEEDED FOR WHEEZING/SHORTNESS OF BREATH, # 300 mL, 2 Refills, Maintenance, 10/19/22 10:14:00 EST, [facility] STORE 69933, 165.1, cm, 09/18/22 9:21:00 EST, Height Start Date: 10/19/22 Status: Ordered Qdyzc-Xveebu-Xskw 300 mg oral capsule 1 capsule, By Mouth, 2 times a day, # 60 capsule, 5 Refills, Maintenance, 05/12/23 20:20:00 EDT, [facility]/pharmacy #[id number], 165, cm, 05/08/23 10:12:00 EDT, Height, 100, kg, 04/04/23 16:15:00 EDT, Dry Weight Start Date: 05/12/23 Status: Ordered amitriptyline 10 mg oral tablet 1, tablet, By Mouth, Daily at bedtime, # 30 tablet, Refills 3, Tot. Refills 3, Maintenance, 05/16/23 10:48:00 EDT, Route to Pharmacy Electronically, [facility]/pharmacy #[id number], 165, cm, 05/08/23 10:12:00 EDT, Height, 100, kg, 04/04/23 16:15:00 EDT, Dry Weight Start Date: 05/16/23 Status: Ordered ammonium lactate 5% topical lotion 1 application, Topically, 2 times a day, PRN Dry Skin, apply and rub in well, # 120 Gm, 0 Refills, Maintenance, 12/05/22 17:09:00 EST, Lotion, [facility]/pharmacy #[id number], Partial fill upon patient request [...] 11/23/22 9:13:00 EST, Route to Pharmacy Electronically, [facility]/pharmacy #[id number], Partial fill upon patient request [...] Gm, 2 Refills, Maintenance, 05/01/23 20:57:00 EDT, [id number], 25, APPLY TOPICALLY 4 TIMES A DAY, NEEDED NEUROPATHIC PAIN, 165, cm, 04/25/23 8:59:00 EDT, Height... Start Date: 05/01/23 Status: Ordered famotidine 20 mg oral tablet 1, tablet, By Mouth, 2 times a day, # 60 tablet, Refills 5, Tot. Refills 5, Maintenance, 02/27/23 10:38:00 EDT, Route to Pharmacy Electronically, [facility]/pharmacy #[id number], 168, cm, 01/15/23 7:16:00 EDT, [...] patch, 0 Refills, Maintenance, 02/05/23 23:52:00 EDT, [id number], 30, APPLY 1 PATCH TOPICALLY DAILY,X30 DAYS NEEDED FOR PAIN MILD, REMOVE AFTER 12 HOURS, 168,... Start Date: 02/05/23 Status: Ordered loratadine 10 mg oral tablet 1, tablet, By Mouth, 2 times a day, # 60 tablet, Refills 0, Maintenance, 12/31/22 14:48:00 EST, Route to Pharmacy Electronically, [facility] 59025, 165.1, cm, 12/05/22 15:21:00 EST, Height Start Date: 12/31/22 Stop Date: 01/30/23 Status: Ordered losartan 50 mg oral tablet 50 mg, 1, tablet, By Mouth, Daily, # 30 tablet, Refills 3, Tot. Refills 3, Maintenance, 05/08/23 10:35:00 EDT, Route to Pharmacy Electronically, [facility]/pharmacy #[id number], Partial fill upon patient request if the prescription is for a schedule II opioid drug... Start Date: 05/08/23 Status: Ordered meclizine 25 mg oral tablet 1 tablet, By Mouth, 2 times a day, PRN NEEDED FOR DIZZINESS, # 60 tablet, 0 Refills, Maintenance, 05/30/23 16:12:00 EDT, [facility], 165, cm, 05/22/23 9:22:00 EDT, Height, 100, kg, 04/04/23 16:15:00 EDT, Dry Weight Start Date: 05/30/23 Status: Ordered Myrbetriq 50 mg oral tablet, extended release 1 tablet, By Mouth, Daily, DO NOT CRUSH OR CHEW., # 30 tablet, 11 Refills, Maintenance, 07/31/22 16:07:00 EDT, [facility]/pharmacy #[id number], 165.1, cm, 07/12/22 17:15:00 EDT, Height Start Date: 07/31/22 Status: Ordered NuLYTELY with Flavor Packs oral powder for reconstitution 240 mL, By Mouth, Every 10 minutes, May substitute any PEG 3350 solution available SPLIT PREP METHOD, # 1 each, 0 Refills, Maintenance, 01/14/23 17:00:00 EDT, REC Powder, [facility]/pharmacy #[id number], test date 01/15/23, 240 mL By Mouth Every 10 minutes,Instr:M... Start Date: 01/14/23 Status: Ordered ondansetron 8 mg oral tablet 1 tablet = 8 mg, By Mouth, Daily, PRN Nausea, For bad nausea days., # 30 tablet, 0 Refills, Maintenance, 06/03/23 10:02:00 EDT, Tablet, [facility]/pharmacy #[id number], Partial fill upon patient request [...] 5 Refills, Maintenance, 11/22/22 14:08:00 EST, Capsule, [facility]/pharmacy #[id number], Partial fill upon patient request [...] x per day BRand name covered by [facility], # 1 each, Refills 6, Tot. Refills 6, Maintenance, 09/29/21 9:04:00 EST, Instructions Replace Required Details Aerosol, Route to Pharmacy Electronically, [id number]... Start Date: 09/29/21 Status: Ordered Ventolin 90 mcg Inhaler 2, puffs, Inhalation, 4 times a day, PRN, Refills 0, Maintenance, 11/26/18 9:56:44 EST Start Date: 11/26/18 Status: Ordered Vitamin B12 500 mcg oral tablet 1 tablet = 500 mcg, By Mouth, Daily, # 90 tablet, 1 Refills, Maintenance, 05/12/23 20:24:00 EDT, Tablet, [facility]/pharmacy #[id number], Partial fill upon patient request if the [...] S Resident Member Role: PCP Address: Address: [address] [place] [address] [place] [address]- Care Team Related Persons Name: MARIO GERARD Address: home [address] [place] [address] Name: CARI GARCÍA Address: home [address] [place] [id number] Name: NOELLE MAY
--- OUTSIDE RECORDS SUMMARY | 2024-09-07 13:56 | XMS_ITS | Continuity of Care Document ---
Author Organization [facility] Address [address] [place] [address]- Care Team Providers Care Worm Grower Name Role Phone Broderick Kidd MD Primary Care Physician Encounter [facility] Date(s): 10/02/23 - 11/01/23 [facility] [address] [place] [id number] Allergies, Adverse Reactions, Alerts No Known [...] 04/25/23 Given tetanus/diphtheria/pertussis, acel(Tdap) 3 01/28/13 Given [id number] bivalent booster vax 01/03/23 Recorded SARS-CoV-2 (COVID-19) [...] 07/05/08 Recor ded 1Result Comment: received at [facility] on [facility] in [place] 2Admin Note: flulaval vis given vis date 05/05/2012 3Admin Note: VIS GIVEN VIS DATE 11/27/2011 4Result Comment: received 2nd dose at [facility] 5Result Comment: received at [facility] Medications acetaminophen 500 mg oral tablet 2 tablet, By Mouth, Every 8 hours, PRN NEEDED FOR PAIN, # 100 tablet, 3 Refills, Maintenance, 10/11/23 11:48:00 EST, [facility]/pharmacy #[id number], 165, cm, 09/27/23 10:21:00 EST, Height, 100, kg, 04/04/23 16:15:00 EDT, Dry Weight Start Date: 10/11/23 Status: Ordered albuterol 0.083% inhalation solution 1 vials, Inhalation, Every 6 hours, PRN NEEDED FOR WHEEZING/SHORTNESS OF BREATH, # 300 mL, 2 Refills, Maintenance, 10/19/22 10:14:00 EST, [facility] STORE 56839, 165.1, cm, 09/18/22 9:21:00 EST, Height Start Date: 10/19/22 Status: Ordered albuterol CFC free 90 mcg/inh inhalation aerosol 2, puffs, Inhalation, Every 6 hours, PRN, # 1 each, Refills 3, Tot. Refills 3, Maintenance, 10/11/23 11:53:00 EST, Route to Pharmacy Electronically, [id number], [facility]/pharmacy#[id number], 165, cm, 09/27/23 10:21:00 EST, Height, 100,... Start Date: 10/11/23 Status: Ordered Nairh-Digyaq-Cqwh 300 mg oral capsule 1 capsule, By Mouth, 2 times a day, # 60 capsule, 5 Refills, Maintenance, 05/12/23 20:20:00 EDT, [facility]/pharmacy #[id number], 165, cm, 05/08/23 10:12:00 EDT, Height, 100, kg, 04/04/23 16:15:00 EDT, Dry Weight Start Date: 05/12/23 Status: Ordered amitriptyline 10 mg oral tablet 1, tablet, By Mouth, Daily at bedtime, # 90 tablet, Refills 0, Maintenance, 08/13/23 13:34:00 EDT, Route to Pharmacy Electronically, [facility] STORE 92669, 165, cm, 06/03/23 9:52:00 EDT, Height, 100, kg, 04/04/23 16:15:00 EDT, Dry Weight Start Date: 08/13/23 Status: Ordered ammonium lactate 5% topical lotion 1 application, Topically, 2 times a day, PRN Dry Skin, apply and rub in well, # 120 Gm, 0 Refills, Maintenance, 12/05/22 17:09:00 EST, Lotion, [facility]/pharmacy #[id number], Partial fill upon patient [...] 11/23/22 9:13:00 EST, Route to Pharmacy Electronically, [facility]/pharmacy #[id number], Partial fill upon patient [...] Gm, 2 Refills, Maintenance, 10/24/23 12:59:00 EST, [facility]/pharmacy #[id number], 25, APPLY TOPICALLY 4 TIMES A DAY, NEEDED NEUROPATHIC PAIN, 165, cm, 10/11/23 14:32:00 EST, He... Start Date: 10/24/23 Status: Ordered famotidine 20 mg oral tablet 1, tablet, By Mouth, 2 times a day, # 180 tablet, Refills 1, Tot. Refills 1, Maintenance, 09/03/23 15:24:00 EDT, Route to Pharmacy Electronically, [facility]/pharmacy #[id number], 165, cm, 06/03/23 9:52:00 EDT, Height, 100, kg, 04/04/23 16:15:00 EDT, Dry Weight Start Date: 09/03/23 Status: Ordered hydrochlorothiazide 25 mg oral tablet 25 mg, 1, tablet, By Mouth, Daily, # 30 tablet, Refills 2, Tot. Refills 2, Maintenance, 09/27/23 11:20:00 EST, Route to Pharmacy Electronically, [facility]/pharmacy #[id number], Partial fill upon patient [...] Refills, Maintenance, 02/05/23 23:52:00 EDT, [facility], 30, APPLY 1 PATCH TOPICALLY DAILY,X30 DAYS NEEDED FOR PAIN MILD, REMOVE AFTER 12 HOURS, 168,... Start Date: 02/05/23 Status: Ordered loratadine 10 mg oral tablet 1, tablet, By Mouth, 2 times a day, # 60 tablet, Refills 0, Maintenance, 12/31/22 14:48:00 EST, Route to Pharmacy Electronically, [facility], 165.1, cm, 12/05/22 15:21:00 EST, Height Start Date: 12/31/22 Stop Date: 01/30/23 Status: Ordered losartan 50 mg oral tablet 50 mg, 1, tablet, By Mouth, Daily, # 90 tablet, Refills 1, Tot. Refills 1, Maintenance, 10/02/23 13:31:00 EST, Route to Pharmacy Electronically, [facility]/pharmacy #[id number], Partial fill upon patient request if the prescription is for a schedule II opioid drug... Start Date: 10/02/23 Status: Ordered meclizine 25 mg oral tablet 1 tablet, By Mouth, 2 times a day, PRN NEEDED FOR DIZZINESS, # 60 tablet, 0 Refills, Maintenance, 05/30/23 16:12:00 EDT, [facility], 165, cm, 05/22/23 9:22:00 EDT, Height, 100, [...] Refills, Maintenance, 09/23/23 10:53:00 EST, [facility], 165, cm, 09/12/23 13:12:00 EST, Height, 100, [...] 5 Refills, Maintenance, 11/22/22 14:08:00 EST, Capsule, [id number], Partial fill upon patient request if the prescription is for a schedule II opioid drug., 165.1, cm, 11/22/22 13:38:0... Start Date: 11/22/22 Status: Ordered riboflavin 400 mg oral capsule 1 capsule = 400 mg, By Mouth, Daily, # 100 capsule, 2 Refills, Maintenance, 05/12/23 20:23:00 EDT, Capsule, [facility]/pharmacy #[id number], 165, cm, 05/08/23 10:12:00 [...] Replace Required Details Aerosol, Route toPharmacy Electronically, [id number]... Start Date: 10/11/23 Status: Ordered Ventolin 90 mcg Inhaler 2, puffs, Inhalation, 4 times a day, PRN, Refills 0, Maintenance, 11/26/18 9:56:44 EST Start Date: 11/26/18 Status: Ordered Vitamin B-12 500 mcg oral tablet 1 tablet = 500 mcg, By Mouth, Daily, # 90 tablet, 1 Refills, Maintenance, 09/11/23 9:07:00 EST, Tablet, [facility]/pharmacy #[id number], Partial fill upon patient request if the prescription is for a schedule II opioid drug., 165, cm, 06/03/23 9:52:00 EDT, Height,... Start Date: 09/11/23 Stop Date: 03/09/24 Status: Ordered Vitamin B12 500 mcg oral tablet 1 tablet = 500 mcg, By Mouth, Daily, # 90 tablet, 1 Refills, Maintenance, 05/12/23 20:24:00 EDT, Tablet, [facility]/pharmacy #[id number], Partial fill upon patient request if the [...] Team Personnel Name: Broderick Kidd MD Position: [facility] Resident Member Role: PCP Address: Address: [address] [place] [address]- Care Team Related Persons Name: MARIO GERARD Address: home [address] [place] [address] Name: CARI GARCÍA Address: home [address] [place] [address] Name: NOELLE MAY
--- OUTSIDE RECORDS SUMMARY | 2024-09-07 13:56 | XMS_ITS | Continuity of Care Document ---
Author Organization [facility] Adult Medicine Address [address] [place] [id number]- Care Team Providers Care Film Mounter Name Role Phone Broderick Kidd MD Primary Care Physician [phone] [facility]): [facility]23 - 11/10/23 [facility] [address] [place] [id number] Attending Physician: Sosa Joy Admitting Physician: AdmtrSosa Referring Physician: Admtr, Sosa Allergies, Adverse Reactions, Alerts No Known Allergies [...] 04/25/23 Given tetanus/diphtheria/pertussis, acel(Tdap) 3 01/28/13 Given [id number] bivalent booster vax 01/03/23 Recorded SARS-CoV-2 (COVID-19) [...] 07/05/08 Recor ded 1Result Comment: received at [facility] on [facility] in [place] 2Admin Note: flulaval vis given vis date 05/05/2012 3Admin Note: VIS GIVEN VIS DATE 11/27/2011 4Result Comment: received 2nd dose at [facility] 5Result Comment: received at [facility] Medications acetaminophen 500 mg oral tablet 2 tablet, By Mouth, Every 8 hours, PRN NEEDED FOR PAIN, # 100 tablet, 3 Refills, Maintenance, 10/11/23 11:48:00 EST, [facility]/pharmacy #1, 165, cm, 09/27/23 10:21:00 EST, Height, 100, kg, 04/04/23 16:15:00 EDT, Dry Weight Start Date: 10/11/23 Status: Ordered albuterol 0.083% inhalation solution 1 vials, Inhalation, Every 6 hours, PRN NEEDED FOR WHEEZING/SHORTNESS OF BREATH, # 300 mL, 2 Refills, Maintenance, 10/19/22 10:14:00 EST, [facility] STORE 04543, 165.1, cm, 09/18/22 9:21:00 EST, Height Start Date: 10/19/22 Status: Ordered albuterol CFC free 90 mcg/inh inhalation aerosol 2, puffs, Inhalation, Every 6 hours, PRN, # 1 each, Refills 3, Tot. Refills 3, Maintenance, 10/11/23 11:53:00 EST, Route to Pharmacy Electronically, [id number], [facility]/pharmacy#[id number], 165, cm, 09/27/23 10:21:00 EST, Height, 100,... Start Date: 10/11/23 Status: Ordered Gwmgh-Axvyeq-Yttn 300 mg oral capsule 1 capsule, By Mouth, 2 times a day, # 60 capsule, 5 Refills, Maintenance, 05/12/23 20:20:00 EDT, [facility]/pharmacy #[id number], 165, cm, 05/08/23 10:12:00 EDT, Height, 100, kg, 04/04/23 16:15:00 EDT, Dry Weight Start Date: 05/12/23 Status: Ordered amitriptyline 10 mg oral tablet 1, tablet, By Mouth, Daily at bedtime, # 90 tablet, Refills 0, Maintenance, 08/13/23 13:34:00 EDT, Route to Pharmacy Electronically, [facility] STORE 39760, 165, cm, 06/03/23 9:52:00 EDT, Height, 100, kg, 04/04/23 16:15:00 EDT, Dry Weight Start Date: 08/13/23 Status: Ordered ammonium lactate 5% topical lotion 1 application, Topically, 2 times a day, PRN Dry Skin, apply and rub in well, # 120 Gm, 0 Refills, Maintenance, 12/05/22 17:09:00 EST, Lotion, [facility]/pharmacy #[id number], Partial fill upon patient request [...] 11/23/22 9:13:00 EST, Route to Pharmacy Electronically, [facility]/pharmacy #[id number], Partial fill upon patient request [...] Gm, 2 Refills, Maintenance, 10/24/23 12:59:00 EST, [facility]/pharmacy #2071, 25, APPLY TOPICALLY 4 TIMES A DAY, NEEDED NEUROPATHIC PAIN, 165, cm, 10/11/23 14:32:00 EST, He... Start Date: 10/24/23 Status: Ordered famotidine 20 mg oral tablet 1, tablet, By Mouth, 2 times a day, # 180 tablet, Refills 1, Tot. Refills 1, Maintenance, 09/03/23 15:24:00 EDT, Route to Pharmacy Electronically, [facility]/pharmacy #[id number], 165, cm, 06/03/23 9:52:00 EDT, Height, 100, kg, 04/04/23 16:15:00 EDT, Dry Weight Start Date: 09/03/23 Status: Ordered hydrochlorothiazide 25 mg oral tablet 25 mg, 1, tablet, By Mouth, Daily, # 30 tablet, Refills 2, Tot. Refills 2, Maintenance, 09/27/23 11:20:00 EST, Route to Pharmacy Electronically, [facility]/pharmacy #[id number], Partial fill upon patient request [...] Refills, Maintenance, 02/05/23 23:52:00 EDT, [facility], 30, APPLY 1 PATCH TOPICALLY DAILY,X30 DAYS NEEDED FOR PAIN MILD, REMOVE AFTER 12 HOURS, 168,... Start Date: 02/05/23 Status: Ordered loratadine 10 mg oral tablet 1, tablet, By Mouth, 2 times a day, # 60 tablet, Refills 0, Maintenance, 12/31/22 14:48:00 EST, Route to Pharmacy Electronically, [facility], 165.1, cm, 12/05/22 15:21:00 EST, Height Start Date: 12/31/22 Stop Date: 01/30/23 Status: Ordered losartan 50 mg oral tablet 50 mg, 1, tablet, By Mouth, Daily, # 90 tablet, Refills 1, Tot. Refills 1, Maintenance, 10/02/23 13:31:00 EST, Route to Pharmacy Electronically, [facility]/pharmacy #[id number], Partial fill upon patient request if the prescription is for a schedule II opioid drug... Start Date: 10/02/23 Status: Ordered meclizine 25 mg oral tablet 1 tablet, By Mouth, 2 times a day, PRN NEEDED FOR DIZZINESS, # 60 tablet, 0 Refills, Maintenance, 05/30/23 16:12:00 EDT, [facility], 165, cm, 05/22/23 9:22:00 EDT, Height, 100, kg, 04/04/23 16:15:00 EDT, Dry Weight Start Date: 05/30/23 Status: Ordered Myrbetriq 50 mg oral tablet, extended release 1 tablet, By Mouth, Daily, DO NOT CRUSH OR CHEW., # 90 tablet, 1 Refills, Maintenance, 09/19/23 16:25:00 EST, [facility]/pharmacy #[id number], 165, cm, 09/12/23 13:12:00 EST, Height, 100, kg, 04/04/23 16:15:00 EDT, Dry Weight Start Date: 09/19/23 Status: Ordered naratriptan 2.5 mg oral tablet 1 tablet = 2.5 mg, By Mouth, Daily, PRN for migraine headache, may repeat dose once in 4 hours, # 18 tablet, 1 Refills, Acute 07/07/24 15:56:00 EDT, 07/07/23 15:56:00 EDT, Tablet, [facility]/pharmacy #[id number],Partial fill upon patient request if the prescripti... Start Date: 07/07/23 Stop Date: 07/07/24 Status: Ordered ondansetron 8 mg oral tablet 1 tablet, By Mouth, Daily, PRN NEEDED FOR NAUSEA AND VOMITING, # 30 tablet, 0 Refills, Maintenance, 09/23/23 10:53:00 EST, [facility] STORE 28569, 165, cm, 09/12/23 13:12:00 EST, Height, 100, [...] 5 Refills, Maintenance, 11/22/22 14:08:00 EST, Capsule, [facility]/pharmacy #2071, Partial fill upon patient request if the prescription is for a schedule II opioid drug., 165.1, cm, 11/22/22 13:38:0... Start Date: 11/22/22 Status: Ordered riboflavin 400 mg oral capsule 1 capsule = 400 mg, By Mouth, Daily, # 100 capsule, 2 Refills, Maintenance, 05/12/23 20:23:00 EDT, Capsule, [facility]/pharmacy #[id number], 165, cm, 05/08/23 10:12:00 EDT, [...] Replace Required Details Aerosol, Route toPharmacy Electronically, [id number]... Start Date: 10/11/23 Status: Ordered Ventolin 90 mcg Inhaler 2, puffs, Inhalation, 4 times a day, PRN, Refills 0, Maintenance, 11/26/18 9:56:44 EST Start Date: 11/26/18 Status: Ordered Vitamin B-12 500 mcg oral tablet 1 tablet = 500 mcg, By Mouth, Daily, # 90 tablet, 1 Refills, Maintenance, 09/11/23 9:07:00 EST, Tablet, [facility]/pharmacy #[id number], Partial fill upon patient request [...] 30 days entered on: 04/04/23 Sex Female Laboratory * Event Display: Laboratory Result Scanned Authored Date: * Event Display: Non BH Lab Results Authored Date: * Event Display: Non BH Lab Results Authored Date: Radiology * Event Display: CT Scan Chest, Non- BH Authored Date: * Event Display: X-Ray Knee, Non- BH Authored Date: * Event Display: X-Ray Knee, Non- BH Authored Date: * Event Display: Non BH [...] S Resident Member Role: PCP Address: Address: [address] [place] [id number] Care Team Related Persons Name: MARIO GERARD Address: home [address] [place] [address] Name: CARI GARCÍA Address: home [address] [address] Name: NOELLE MAY
--- OUTSIDE RECORDS SUMMARY | 2024-09-07 13:56 | XMS_ITS | Continuity of Care Document ---
Author Organization [facility] Address [address] [place] [address]- Care Team Providers Care Plate Stacker Hand Name Role Phone Broderick Kidd MD Primary Care Physician [phone] [facility]): 03/27[facility]24 - 04/26/24 [facility] [address] [place] [phone] Allergies, Adverse Reactions, Alerts No Known Allergies [...] 04/25/23 Given tetanus/diphtheria/pertussis, acel(Tdap) 3 01/28/13 Given [id number] bivalent booster vax 01/03/23 Recorded SARS-CoV-2 (COVID-19) [...] 07/05/08 Recor ded 1Result Comment: received at [facility] on [facility] in [place] 2Admin Note: flulaval vis given vis date 05/05/2012 3Admin Note: VIS GIVEN VIS DATE 11/27/2011 4Result Comment: received 2nd dose at [facility] 5Result Comment: received at [facility] Medications acetaminophen 500 mg oral tablet 2 tablet, By Mouth, Every 8 hours, PRN NEEDED FOR PAIN, # 100 tablet, 3 Refills, Maintenance, 10/11/23 11:48:00 EST, [facility]/pharmacy #[id number], 165, cm, 09/27/23 10:21:00 EST, Height, 100, kg, 04/04/23 16:15:00 EDT, Dry Weight Start Date: 10/11/23 Status: Ordered Ajovy Autoinjector 225 mg/1.5 mL subcutaneous solution = 225 mg, Subcutaneous Injection, Every 28 days, # 1 kit, 5 Refills, Maintenance, 03/16/24 12:10:00EDT, [facility], Partial fill upon patient request if the prescription is for a schedule II opioid drug., 165, cm, 03/10/24 10:03:00 E... Start Date: 03/16/24 Status: Ordered Garct-Uxhebr-Vddd 300 mg oral capsule 1 capsule, By Mouth, 2 times a day, # 60 capsule, 5 Refills, Maintenance, 05/12/23 20:20:00 EDT, [facility]/pharmacy #[id number], 165, cm, 05/08/23 10:12:00 EDT, Height, 100, kg, 04/04/23 16:15:00 EDT, Dry Weight Start Date: 05/12/23 Status: Ordered amitriptyline 10 mg oral tablet 1, tablet, By Mouth, Daily at bedtime, # 90 tablet, Refills 1, Tot. Refills 1, Maintenance, 12/27/23 16:05:00 EST, Route to Pharmacy Electronically, [facility]/pharmacy #[id number], 165, cm, 10/11/23 14:32:00 EST, Height, 100, kg, 04/04/23 16:15:00 EDT, Dry Weight Start Date: 12/27/23 Status: Ordered ammonium lactate 5% topical lotion 1 application, Topically, 2 times a day, PRN Dry Skin, apply and rub in well, # 120 Gm, 0 Refills, Maintenance, 12/05/22 17:09:00 EST, Lotion, [facility]/pharmacy #[id number], Partial fill upon patient request [...] 11/23/22 9:13:00 EST, Route to Pharmacy Electronically, [facility]/pharmacy #[id number], Partial fill upon patient request [...] Gm, 2 Refills, Maintenance, 01/20/24 9:29:00 EDT, [facility] STORE 79707, 25, APPLY TOPICALLY 4 TIMES A DAY, NEEDED NEUROPATHIC PAIN, 165, cm, 10/11/23 14:32:00 EST, Height... Start Date: 01/20/24 Status: Ordered famotidine 20 mg oral tablet 1, tablet, By Mouth, 2 times a day, # 180 tablet, Refills 1, Maintenance, 02/24/24 12:56:00 EDT, Route to Pharmacy Electronically, [facility], 165, cm, 02/06/24 9:54:00 EDT, Height, 100, kg, 04/04/23 16:15:00 EDT, Dry Weight Start Date: 02/24/24 Status: Ordered hydrochlorothiazide 25 mg oral tablet 1, tablet, By Mouth, Daily, # 90 tablet, Refills 1, Tot. Refills 1, Maintenance, 12/23/23 17:10:00 EST, Route to Pharmacy Electronically, [facility]/pharmacy #[id number], 165, cm, 10/11/23 14:32:00 EST, Height, [...] patch, 0 Refills, Maintenance, 02/05/23 23:52:00 EDT, [facility] STORE 62382, 30, APPLY 1 PATCH TOPICALLY DAILY,X30 DAYS NEEDED FOR PAIN MILD, REMOVE AFTER 12 HOURS, 168,... Start Date: 02/05/23 Status: Ordered loratadine 10 mg oral tablet 1, tablet, By Mouth, 2 times a day, # 60 tablet, Refills 0, Maintenance, 12/31/22 14:48:00 EST, Route to Pharmacy Electronically, [facility] STORE 04439, 165.1, cm, 12/05/22 15:21:00 EST, Height Start Date: 12/31/22 Stop Date: 01/30/23 Status: Ordered losartan 50 mg oral tablet 1 tablet, By Mouth, Daily, # 90 tablet, 1 Refills, Maintenance, 03/10/24 12:55:00 EDT, [facility] STORE 88585, 165, cm, 03/10/24 10:03:00 EDT, Height, 100, kg, 04/04/23 16:15:00 EDT, Dry Weight Start Date: 03/10/24 Status: Ordered meclizine 25 mg oral tablet 1 tablet, By Mouth, 2 times a day, PRN NEEDED FOR DIZZINESS, # 60 tablet, 0 Refills, Maintenance, 05/30/23 16:12:00 EDT, [facility] STORE 21934, 165, cm, 05/22/23 9:22:00 EDT, Height, 100, [...] 07/07/24 15:56:00 EDT, 07/07/23 15:56:00 EDT, Tablet, [facility]/pharmacy #[id number],Partial fill upon patient request if [...] tablet, 0 Refills, Maintenance, 09/23/23 10:53:00 EST, [facility] STORE 81636, 165, cm, 09/12/23 13:12:00 EST, Height, 100, [...] capsule, 5 Refills, Maintenance, 02/27/24 6:10:00EDT, Capsule, [facility], Partial fill upon patient [...] Replace Required Details Aerosol, Route toPharmacy Electronically, [id number]... Start Date: 10/11/23 Status: Ordered Ventolin HFA 108 mcg/inh inhalation aerosol with adapter 2 puffs, Inhalation, Every 6 hours, PRN NEEDED FOR WHEEZE OR FOR SHORTNESS OF BREATH, # 18 each,3 Refills, Maintenance, 02/01/24 11:42:00 EDT, [facility] STORE 52254, 165, cm, 10/11/23 14:32:00 EST, Height, 100, [...] Active 1Follows with therapist and psychiatrist at [place] per previous notes 2PFTs show no obstruction. However has h/o asthma. Ct chest in 07/27 and pulm note says restrictive lung disease mild similiar to findings on PFT 3Follows with therapist and psychiatrist at [place] per previous notes 4Sleep study in 2015. [...] Team Personnel Name: Broderick Kidd MD Position: [facility] Resident Member Role: PCP Address: Address: [address] [place] [address] [place] [address]- Care Team Related Persons Name: MARIO GERARD Address: home [address] [place] [address] Name: CARI GARCÍA Address: home [address] [address] Name: NOELLE MAY
--- OUTSIDE RECORDS SUMMARY | 2024-09-07 13:56 | XMS_ITS | Continuity of Care Document ---
Author Organization [facility] Address [address] [place] [address]- Care Team Providers Care Shoemaker Custom Name Role Phone Otilia MEHTA, Kaaaliyah Primary Care Physic astrid [facility]20 - 02/27/20 [facility] [address] [place] [address]- Attending Physician: Sosa Joy Admitting Physician: Sosa [...] Inhalation, 2 times a day, Prescribed by [facility]., # 1 each, Refills 11, Tot. Refills 11, Maintenance, 03/13/18 11:00:50 EDT, Inhaler, Route to Pharmacy Electronically, [id number], [facility]/pharmacy #2071 Start Date: 03/13/18 Status: Ordered albuterol 0.083% inhalation solution 3 mL = 2.5 mg, Neb, Every 6 hours, PRN Wheezing/Shortness of Breath, # 360 mL, 2 Refills, Maintenance, 12/04/19 15:27:00 EST, [facility]/pharmacy #207, 165.1, cm, 12/04/19 14:54:00 EST, Height, 86.4, kg, 08/10/19 14:42:00 EDT, Dry Weight Start Date: 12/04/19 Status: Ordered Lety Allergy 60 mg oral tablet 3 tablet = 180 mg, By Mouth, Daily, Prescribed by [facility] in [place]., # 90 tablet, 0 Refills, Maintenance, 02/16/16 14:46:50, Tablet Start Date: 02/16/16 Stop Date: 03/17/16 Status: Ordered amitriptyline 10 mg oral tablet 10 mg, 1, tablet, By Mouth, Daily at bedtime, # 30 tablet, Refills 5, Tot. Refills 5, Maintenance, 06/30/19 15:15:49 EDT, Route to Pharmacy Electronically, [id number], [facility]/pharmacy #[id number] Start Date: 06/30/19 Status: Ordered AUTO [...] 02/02/20 11:42:00 EDT, Route to Pharmacy Electronically, [facility]/pharmacy #2071, 165.1, cm, 01/07/20 14:51:00 EST, Height, [...] BY MOUTH DAILY,INSTR:DO NOT CRUSH OR CHEW, [facility]/pharmacy #207 Start Date: 07/07/19 Status: Ordered Nebulizer/Compressor See Instructions, # 1 each, Refills 0, Tot. Refills 0, Maintenance, for PRN albuterol inhaled, 11/21/17 16:27:13, Compound Start Date: 11/21/17 Status: Ordered omeprazole 20 mg oral enteric coated capsule 1 capsule = 20 mg, By Mouth, Daily, # 30 capsule, 2 Refills, Maintenance, 01/07/20 15:11:00 EST, [facility]/pharmacy #2070, 165.1, cm, 01/07/20 14:51:00 EST, Height, [...] tablet, 2 Refills, Maintenance, 01/07/20 15:12:00 EST, [facility]/pharmacy #2071, 165.1, cm, 01/07/20 14:51:00 EST, Height, [...] apnea (AIRAM ), on CPAP(Confirmed) Active *BHN/BHCP/Leodan Rich-[phone]/Health assisted, active care coordination(Confirmed) Active Sjogren's syndrome(Confirmed) Active Smoker, 5-10 cigarettes per day since age 16. Quit once for 2.5 years(Confirmed) Active Systemic lupus(Confirmed) Active Chronic urticaria(Confirmed) Active Vertigo(Confirmed) Active Social History Social History Type Response Tobacco Started at age: 13 Y ears. Sex Female
--- OUTSIDE RECORDS SUMMARY | 2024-09-07 13:56 | XMS_ITS | Continuity of Care Document ---
Author Organization [facility] Address [address] [place] [address]- Care Team Providers Care Payment Rep Name Role Phone Ashley Faria MD Primary Care Physician [facility]23 - 04/26/23 [facility] [address] [place] [id number] Allergies, Adverse Reactions, Alerts No Known Medication Allergies Immunizations Given and Recorded Vaccine Date Status Refusal Reason tetanus/diphtheria/pertussis, acel(Tdap) 04/25/23 Given tetanus/diphtheria/pertussis, acel(Tdap) 1 01/28/13 Given [id number] bivalent booster vax 01/03/23 Recorded influenza virus [...] Comment: received at [facility] on [facility] [place] [facility] Note: flulaval vis given vis date 05/05/2012 4Result Comment: received 2nd dose at [facility] 5Result Comment: received at [facility] Medications acetaminophen 500 mg oral tablet 2 tablet, By Mouth, Every 8 hours, PRN NEEDED FOR PAIN, # 100 tablet, 3 Refills, Maintenance, 04/26/23 23:48:00 EDT, [facility] STORE 36143, 165, cm, 04/25/23 8:59:00 EDT, Height, 100, kg, 04/04/23 16:15:00 EDT, Dry Weight Start Date: 04/26/23 Status: Ordered albuterol 0.083% inhalation solution 1 vials, Inhalation, Every 6 hours, PRN NEEDED FOR WHEEZING/SHORTNESS OF BREATH, # 300 mL, 2 Refills, Maintenance, 10/19/22 10:14:00 EST, [facility] STORE 85205, 165.1, cm, 09/18/22 9:21:00 EST, Height Start Date: 10/19/22 Status: Ordered Jhonu-Lfkymd-Enzd 300 mg oral capsule 1 capsule, By Mouth, 2 times a day, OTC N/C., # 60 capsule, 5 Refills, Maintenance, 08/17/21 15:40:00 EDT, [facility]/pharmacy #2071, 165.1, cm, 08/14/21 14:44:00 EDT, Height Start Date: 08/17/21 Status: Ordered amitriptyline 10 mg oral tablet 1, tablet, By Mouth, Daily at bedtime, # 30 tablet, Refills 5, Maintenance, 01/21/23 11:23:00 EDT, Route to Pharmacy Electronically, [facility] STORE 92393, 168, cm, 01/15/23 7:16:00 EDT, Height, 99.4, kg, 01/15/23 7:16:00 EDT, Dry Weight Start Date: 01/21/23 Status: Ordered amLODIPine 5 mg oral tablet 1 tablet, By Mouth, Daily in AM, # 60 tablet, 0 Refills, Maintenance, 01/31/23 19:32:00 EDT, [facility], 168, cm, 01/15/23 7:16:00 EDT, Height, 99.4, kg, 01/15/23 7:16:00 EDT, Dry Weight Start Date: 01/31/23 Status: Ordered ammonium lactate 5% topical lotion 1 application, Topically, 2 times a day, PRN Dry Skin, apply and rub in well, # 120 Gm, 0 Refills, Maintenance, 12/05/22 17:09:00 EST, Lotion, [facility]/pharmacy #1631, Partial fill upon patient request ifthe prescription [...] each, Refills 1, Tot. Refills 1, Acute 04/25/24 11:56:00 EDT, surgical, calf length 20-30 mm Hg ONE pair for edema, 04/25/23 11:55:00 EDT, Supply Start Date: 04/25/23 Stop Date: 04/25/24 Status: Ordered [facility] 5 [...] PAIN, # 100 Gm, 2 Refills, Maintenance, 02/12/23 7:07:00 EDT, [facility] STORE 67190, 25, APPLY TOPICALLY 4 TIMES A DAY, NEEDED NEUROPATHIC PAIN, 168, cm, 01/15/23 7:16:00 EDT, Height,... Start Date: 02/12/23 Status: Ordered famotidine 20 mg oral tablet [...] 02/05/23 23:52:00 EDT, [facility] STORE 14238, 30, APPLY 1 PATCH TOPICALLY DAILY,X30 DAYS NEEDED FOR PAIN MILD, REMOVE AFTER 12 HOURS, 168,... Start Date: 02/05/23 Status: Ordered loratadine 10 mg oral tablet 1, tablet, By Mouth, 2 times a day, # 60 tablet, Refills 0, Maintenance, 12/31/22 14:48:00 EST, Route to Pharmacy Electronically, [facility] STORE 94868, 165.1, cm, 12/05/22 15:21:00 EST, Height Start Date: 12/31/22 Stop Date: 01/30/23 Status: Ordered meclizine 25 mg oral tablet 1 tablet, By Mouth, 2 times a day, PRN NEEDED FOR DIZZINESS, Take as needed for dizziness, # 60 tablet, 2 Refills, Maintenance, 12/05/22 16:13:00 EST, [facility]/pharmacy #2071, 165.1, cm, 12/05/22 15:21:00 EST, Height [...] tablet, 11 Refills, Maintenance, 07/31/22 16:07:00 EDT, [facility]/pharmacy #2071, 165.1, cm, 07/12/22 17:15:00 EDT, Height [...] 2 Refills, Maintenance, 09/12/20 18:13:00 EST, Capsule, [facility]/pharmacy #2071, 165.1, cm, 05/10/20 10:01:00 EDT, [...] tablet, 1 Refills, Maintenance, 08/17/21 15:39:00 EDT, [facility]/pharmacy #2071, 165.1, cm, 08/14/21 14:44:00 EDT, Height Start Date: 08/17/21 Status: Ordered Symbicort 80mcg/4.5mcg Inhaler See Instructions, PRN, 1 puff 2 x per day BRand name covered by hne, # 1 each, Refills 6, Tot. Refills 6, Maintenance, 09/29/21 9:04:00 EST, Instructions Replace Required Details Aerosol, Route to Pharmacy Electronically, [id number]... Start Date: 09/29/21 Status: Ordered Ventolin 90 [...] Refills, Maintenance, 09/20/21 15:14:00 EST, Chew Tablet, [facility]/pharmacy #2071, Partial fill [...] Team Personnel Name: Ashley Faria MD Position: [facility] Resident Member Role: PCP Address: Address: [address] [place] [address] [place] [address]- Care Team Related Persons Name: MARIO GERARD Address: home [address] [place] [address] Name: CARI GARCÍA Address: home [address] [place] [id number] Name: NOELLE MAY
--- OUTSIDE RECORDS SUMMARY | 2024-09-07 13:56 | XMS_ITS | Continuity of Care Document ---
Author Organization [facility] Address [address] [place] [id number]- Care Team Providers Care Chain Mender Name Role Phone Broderick Kidd MD Primary Care Physician [phone] Encounter [facility] Date(s): 06/03/23 - 07/03/23 [facility] [address] [place] [id number] Attending Physician: Sosa Joy Admitting Physician: AdmtrSosa Referring Physician: Admtr, Sosa Allergies, Adverse Reactions, Alerts No Known Medication Allergies Immunizations Given and Recorded Vaccine Date Status Refusal Reason tetanus/diphtheria/pertussis, acel(Tdap) 04/25/23 Given tetanus/diphtheria/pertussis, acel(Tdap) 1 01/28/13 Given [id number] bivalent booster vax 01/03/23 Recorded influenza virus [...] VIS DATE 11/27/2011 2Result Comment: received at [facility] on [facility] in [place] 3Admin Note: flulaval vis given vis date 05/05/2012 4Result Comment: received 2nd dose at [facility] 5Result Comment: received at [facility] Medications acetaminophen 500 mg oral tablet 2 tablet, By Mouth, Every 8 hours, PRN NEEDED FOR PAIN, # 100 tablet, 3 Refills, Maintenance, 04/26/23 23:48:00 EDT, [facility] STORE [id number], 165, cm, 04/25/23 8:59:00 EDT, Height, 100, kg, 04/04/23 16:15:00 EDT, Dry Weight Start Date: 04/26/23 Status: Ordered albuterol 0.083% inhalation solution 1 vials, Inhalation, Every 6 hours, PRN NEEDED FOR WHEEZING/SHORTNESS OF BREATH, # 300 mL, 2 Refills, Maintenance, 10/19/22 10:14:00 EST, [facility] STORE 04356, 165.1, cm, 09/18/22 9:21:00 EST, Height Start Date: 10/19/22 Status: Ordered Uwald-Jpukzc-Whwm 300 mg oral capsule 1 capsule, By Mouth, 2 times a day, # 60 capsule, 5 Refills, Maintenance, 05/12/23 20:20:00 EDT, [facility]/pharmacy #[id number], 165, cm, 05/08/23 10:12:00 EDT, Height, 100, kg, 04/04/23 16:15:00 EDT, Dry Weight Start Date: 05/12/23 Status: Ordered amitriptyline 10 mg oral tablet 1, tablet, By Mouth, Daily at bedtime, # 30 tablet, Refills 3, Tot. Refills 3, Maintenance, 05/16/23 10:48:00 EDT, Route to Pharmacy Electronically, [facility]/pharmacy #[id number], 165, cm, 05/08/23 10:12:00 EDT, Height, 100, kg, 04/04/23 16:15:00 EDT, Dry Weight Start Date: 05/16/23 Status: Ordered ammonium lactate 5% topical lotion 1 application, Topically, 2 times a day, PRN Dry Skin, apply and rub in well, # 120 Gm, 0 Refills, Maintenance, 12/05/22 17:09:00 EST, Lotion, [facility]/pharmacy #[id number], Partial fill upon patient request [...] 11/23/22 9:13:00 EST, Route to Pharmacy Electronically, [facility]/pharmacy #[id number], Partial fill upon patient request [...] Gm, 2 Refills, Maintenance, 05/01/23 20:57:00 EDT, [facility] STORE 96809, 25, APPLY TOPICALLY 4 TIMES A DAY, NEEDED NEUROPATHIC PAIN, 165, cm, 04/25/23 8:59:00 EDT, Height... Start Date: 05/01/23 Status: Ordered famotidine 20 mg oral tablet 1, tablet, By Mouth, 2 times a day, # 60 tablet, Refills 5, Tot. Refills 5, Maintenance, 02/27/23 10:38:00 EDT, Route to Pharmacy Electronically, [facility]/pharmacy #[id number], 168, cm, 01/15/23 7:16:00 EDT, [...] patch, 0 Refills, Maintenance, 02/05/23 23:52:00 EDT, [facility] STORE 40939, 30, APPLY 1 PATCH TOPICALLY DAILY,X30 DAYS NEEDED FOR PAIN MILD, REMOVE AFTER 12 HOURS, 168,... Start Date: 02/05/23 Status: Ordered loratadine 10 mg oral tablet 1, tablet, By Mouth, 2 times a day, # 60 tablet, Refills 0, Maintenance, 12/31/22 14:48:00 EST, Route to Pharmacy Electronically, [facility] STORE 47842, 165.1, cm, 12/05/22 15:21:00 EST, Height Start Date: 12/31/22 Stop Date: 01/30/23 Status: Ordered losartan 50 mg oral tablet 50 mg, 1, tablet, By Mouth, Daily, # 30 tablet, Refills 3, Tot. Refills 3, Maintenance, 05/08/23 10:35:00 EDT, Route to Pharmacy Electronically, [facility]/pharmacy #[id number], Partial fill upon patient request if the prescription is for a schedule II opioid drug... Start Date: 05/08/23 Status: Ordered meclizine 25 mg oral tablet 1 tablet, By Mouth, 2 times a day, PRN NEEDED FOR DIZZINESS, # 60 tablet, 0 Refills, Maintenance, 05/30/23 16:12:00 EDT, [facility], 165, cm, 05/22/23 9:22:00 EDT, Height, 100, kg, 04/04/23 16:15:00 EDT, Dry Weight Start Date: 05/30/23 Status: Ordered Myrbetriq 50 mg oral tablet, extended release 1 tablet, By Mouth, Daily, DO NOT CRUSH OR CHEW., # 30 tablet, 11 Refills, Maintenance, 07/31/22 16:07:00 EDT, [facility]/pharmacy #[id number], 165.1, cm, 07/12/22 17:15:00 EDT, Height Start Date: 07/31/22 Status: Ordered NuLYTELY with Flavor Packs oral powder for reconstitution 240 mL, By Mouth, Every 10 minutes, May substitute any PEG 3350 solution available SPLIT PREP METHOD, # 1 each, 0 Refills, Maintenance, 01/14/23 17:00:00 EDT, REC Powder, [facility]/pharmacy #[id number], test date 01/15/23, 240 mL [...] x per day BRand name covered by [facility] # 1 each, Refills 6, Tot. Refills 6, Maintenance, 09/29/21 9:04:00 EST, Instructions Replace Required Details Aerosol, Route to Pharmacy Electronically, [id number]... Start Date: 09/29/21 Status: Ordered Ventolin 90 mcg Inhaler 2, puffs, Inhalation, 4 times a day, PRN, Refills 0, Maintenance, 11/26/18 9:56:44 EST Start Date: 11/26/18 Status: Ordered Vitamin B12 500 mcg oral tablet 1 tablet = 500 mcg, By Mouth, Daily, # 90 tablet, 1 Refills, Maintenance, 05/12/23 20:24:00 EDT, Tablet, [facility]/pharmacy #[id number], Partial fill upon patient request if the [...] Results Authored Date: Radiology * Event Display: X-Ray Knee, Non- BH [...] S Resident Member Role: PCP Address: Address: [address] [place] [address]- Care Team Related Persons Name: MARIO GERARD Address: home [address] [place] [address] Name: CARI GARCÍA Address: home [address] [place] [address] Name: NOELLE MAY
--- OUTSIDE RECORDS SUMMARY | 2024-09-07 13:56 | XMS_ITS | Continuity of Care Document ---
Author Organization [facility] Address [address] [place] [address]- Care Team Providers Care Fiber Optic Technician Name Role Phone Broderick Kidd MD Primary Care Physician [phone] Encounter [facility] Date(s): 08/27/23 - 09/26/23 [facility] [address] [place], [place] [address] Attending Physician: Sosa Joy Admitting Physician: Sosa Joy Referring Physician: AdmtrSosa Allergies, Adverse Reactions, Alerts No Known Medication Allergies Immunizations Given and Recorded Vaccine Date Status Refusal Reason tetanus/diphtheria/pertussis, acel(Tdap) 04/25/23 Given tetanus/diphtheria/pertussis, acel(Tdap) 1 01/28/13 Given [id number] bivalent booster vax 01/03/23 Recorded influenza virus [...] VIS DATE 11/27/2011 2Result Comment: received at [facility] on [facility] in [place] 3Admin Note: flulaval vis given vis date 05/05/2012 4Result Comment: received 2nd dose at [facility] 5Result Comment: received at [facility] Medications acetaminophen 500 mg oral tablet 2 tablet, By Mouth, Every 8 hours, PRN NEEDED FOR PAIN, # 100 tablet, 3 Refills, Maintenance, 04/26/23 23:48:00 EDT, [facility] STORE 27957, 165, cm, 04/25/23 8:59:00 EDT, Height, 100, kg, 04/04/23 16:15:00 EDT, Dry Weight Start Date: 04/26/23 Status: Ordered albuterol 0.083% inhalation solution 1 vials, Inhalation, Every 6 hours, PRN NEEDED FOR WHEEZING/SHORTNESS OF BREATH, # 300 mL, 2 Refills, Maintenance, 10/19/22 10:14:00 EST, [facility] STORE 25775, 165.1, cm, 09/18/22 9:21:00 EST, Height Start Date: 10/19/22 Status: Ordered Pmqvt-Ecpvkl-Jrla 300 mg oral capsule 1 capsule, By Mouth, 2 times a day, # 60 capsule, 5 Refills, Maintenance, 05/12/23 20:20:00 EDT, [facility]/pharmacy #[id number], 165, cm, 05/08/23 10:12:00 EDT, Height, 100, kg, 04/04/23 16:15:00 EDT, Dry Weight Start Date: 05/12/23 Status: Ordered amitriptyline 10 mg oral tablet 1, tablet, By Mouth, Daily at bedtime, # 90 tablet, Refills 0, Maintenance, 08/13/23 13:34:00 EDT, Route to Pharmacy Electronically, [facility] 92428, 165, cm, 06/03/23 9:52:00 EDT, Height, 100, kg, 04/04/23 16:15:00 EDT, Dry Weight Start Date: 08/13/23 Status: Ordered ammonium lactate 5% topical lotion 1 application, Topically, 2 times a day, PRN Dry Skin, apply and rub in well, # 120 Gm, 0 Refills, Maintenance, 12/05/22 17:09:00 EST, Lotion, [facility]/pharmacy #[id number], Partial fill upon patient [...] 11/23/22 9:13:00 EST, Route to Pharmacy Electronically, [facility]/pharmacy #[id number], Partial fill upon patient [...] Gm, 2 Refills, Maintenance, 07/16/23 6:00:00 EDT, [facility] STORE 98345, 25, APPLY TOPICALLY 4 TIMES A DAY, NEEDED NEUROPATHIC PAIN, 165, cm, 06/03/23 9:52:00 EDT, Height,... Start Date: 07/16/23 Status: Ordered famotidine 20 mg oral tablet 1, tablet, By Mouth, 2 times a day, # 180 tablet, Refills 1, Tot. Refills 1, Maintenance, 09/03/23 15:24:00 EDT, Route to Pharmacy Electronically, [facility]/pharmacy #[id number], 165, cm, 06/03/23 9:52:00 [...] patch, 0 Refills, Maintenance, 02/05/23 23:52:00 EDT, [facility] STORE 14830, 30, APPLY 1 PATCH TOPICALLY DAILY,X30 DAYS NEEDED FOR PAIN MILD, REMOVE AFTER 12 HOURS, 168,... Start Date: 02/05/23 Status: Ordered loratadine 10 mg oral tablet 1, tablet, By Mouth, 2 times a day, # 60 tablet, Refills 0, Maintenance, 12/31/22 14:48:00 EST, Route to Pharmacy Electronically, [facility] STORE 24995, 165.1, cm, 12/05/22 15:21:00 EST, Height Start Date: 12/31/22 Stop Date: 01/30/23 Status: Ordered losartan 50 mg oral tablet 50 mg, 1, tablet, By Mouth, Daily, # 30 tablet, Refills 3, Tot. Refills 3, Maintenance, 05/08/23 10:35:00 EDT, Route to Pharmacy Electronically, [facility]/pharmacy #[id number], Partial fill upon patient request if the prescription is for a schedule II opioid drug... Start Date: 05/08/23 Status: Ordered meclizine 25 mg oral tablet 1 tablet, By Mouth, 2 times a day, PRN NEEDED FOR DIZZINESS, # 60 tablet, 0 Refills, Maintenance, 05/30/23 16:12:00 EDT, [facility], 165, cm, 05/22/23 9:22:00 EDT, Height, 100, kg, 04/04/23 16:15:00 EDT, Dry Weight Start Date: 05/30/23 Status: Ordered Myrbetriq 50 mg oral tablet, extended release 1 tablet, By Mouth, Daily, DO NOT CRUSH OR CHEW., # 90 tablet, 1 Refills, Maintenance, 09/19/23 16:25:00 EST, [facility]/pharmacy #[id number], 165, cm, 09/12/23 13:12:00 EST, Height, 100, kg, 04/04/23 16:15:00 EDT, Dry Weight Start Date: 09/19/23 Status: Ordered naratriptan 2.5 mg oral tablet 1 tablet = 2.5 mg, By Mouth, Daily, PRN for migraine headache, may repeat dose once in 4 hours, # 18 tablet, 1 Refills, Acute 07/07/24 15:56:00 EDT, 07/07/23 15:56:00 EDT, Tablet, [facility]/pharmacy #[id number],Partial fill upon patient request if the prescripti... Start Date: 07/07/23 Stop Date: 07/07/24 Status: Ordered ondansetron 8 mg oral tablet 1 tablet, By Mouth, Daily, PRN NEEDED FOR NAUSEA AND VOMITING, # 30 tablet, 0 Refills, Maintenance, 09/23/23 10:53:00 EST, [facility], 165, cm, 09/12/23 13:12:00 EST, Height, 100, [...] 5 Refills, Maintenance, 11/22/22 14:08:00 EST, Capsule, [facility]/pharmacy #[id number], Partial fill upon patient request if the prescription is for a schedule II opioid drug., 165.1, cm, 11/22/22 13:38:0... Start Date: 11/22/22 Status: Ordered riboflavin 400 mg oral capsule 1 capsule = 400 mg, By Mouth, Daily, # 100 capsule, 2 Refills, Maintenance, 05/12/23 20:23:00 EDT, Capsule, [facility]/pharmacy #[id number], 165, cm, 05/08/23 10:12:00 [...] x per day BRand name covered by [facility], # 1 each, Refills 6, Tot. Refills 6, Maintenance, 09/29/21 9:04:00 EST, Instructions Replace Required Details Aerosol, Route to Pharmacy Electronically, [id number]... Start Date: 09/29/21 Status: Ordered Ventolin 90 mcg Inhaler 2, puffs, Inhalation, 4 times a day, PRN, Refills 0, Maintenance, 11/26/18 9:56:44 EST Start Date: 11/26/18 Status: Ordered Vitamin B-12 500 mcg oral tablet 1 tablet = 500 mcg, By Mouth, Daily, # 90 tablet, 1 Refills, Maintenance, 09/11/23 9:07:00 EST, Tablet, [facility]/pharmacy #[id number], Partial fill upon patient request if the prescription is for a schedule II opioid drug., 165, cm, 06/03/23 9:52:00 EDT, Height,... Start Date: 09/11/23 Stop Date: 03/09/24 Status: Ordered Vitamin B12 500 mcg oral tablet 1 tablet = 500 mcg, By Mouth, Daily, # 90 tablet, 1 Refills, Maintenance, 05/12/23 20:24:00 EDT, Tablet, [facility]/pharmacy #[id number], Partial fill upon patient [...] Team Personnel Name: Broderick Kidd MD Position: [facility] Resident Member Role: PCP Address: Address: [address] [place] [address] [place] [address]- Care Team Related Persons Name: MARIO GERARD Address: home [address] [place] [address] Name: CARI GARCÍA Address: home [address] [place] [id number] Name: NOELLE MAY
--- OUTSIDE RECORDS SUMMARY | 2024-09-07 13:56 | XMS_ITS | Continuity of Care Document ---
Author Organization [facility] [employer] [facility] Address [address], [address] [place] [address]- Care Team Providers Care Cracker Off Name Role Phone Giana MEHTA, Ashley Primary Care Physician [place] [facility] [place] Date(s): 05/02/22 - 08/30/22 [facility] [address], [address] [place] [address]- Attending Physician: Melba Joshi MD Admitting Physician: Melba Joshi MD Referring Physician: Serenity MEHTA , Marilin Arceo Allergies, Adverse Reactions, Alerts No Known Medication [...] 5 01/28/13 Given 1Result Comment: received at [facility] on [facility] in [place] 2Admin Note: flulaval vis given vis date 05/05/2012 3Result Comment: received 2nd dose at [facility] 4Result Comment: received at [facility] 5Admin Note: VIS GIVEN VIS DATE 11/27/2011 Medications acetaminophen 500 mg oral tablet 2 tablet, By Mouth, Every 8 hours, PRN NEEDED FOR PAIN, # 100 tablet, 3 Refills, Maintenance, 07/12/22 19:10:00 EDT, [facility]/pharmacy #[id number], 165.1, cm, 07/12/22 17:15:00 EDT, Height Start Date: 07/12/22 Status: Ordered albuterol 0.083% inhalation solution 3 mL = 2.5 mg, Neb, Every 6 hours, PRN Wheezing/Shortness of Breath, # 360 mL, 2 Refills, Maintenance, 09/20/21 15:13:00 EST, [facility]/pharmacy #[id number], 165.1, cm, 09/20/21 14:28:00 EST, Height Start Date: 09/20/21 Status: Ordered albuterol CFC free 90 mcg/inh inhalation aerosol 1, puffs, Inhalation, 4 times a day, PRN, # 8 Gm, Refills 11, Tot. Refills 11, Maintenance, 07/21/21 17:07:00 EDT, Aerosol, Route to Pharmacy Electronically, [id number], [facility]/pharmacy #1, 165.1, cm, 03/22/21 14:17:00 EDT, H... Start Date: 07/21/21 Status: Ordered Yxoiq-Yyzfyh-Fovr 300 mg oral capsule 1 capsule, By Mouth, 2 times a day, OTC N/C., # 60 capsule, 5 Refills, Maintenance, 08/17/21 15:40:00 EDT, [facility], 165.1, cm, 08/14/21 14:44:00 EDT, Height Start Date: 08/17/21 Status: Ordered amitriptyline 10 mg oral tablet 1, tablet, By Mouth, Daily at bedtime, # 90 tablet, Refills 3, Tot. Refills 3, Maintenance, 08/14/21 15:13:00 EDT, Route to Pharmacy Electronically, [facility], 165.1, cm, 08/14/21 14:44:00 EDT, Height Start Date: 08/14/21 Status: Ordered amitriptyline 10 mg oral tablet 10 mg, 1, tablet, By Mouth, Daily at bedtime, # 30 tablet, Refills 5, Tot. Refills 5, Maintenance, 07/31/22 16:08:00 EDT, [id number] 165.1, cm, 07/12/22 17:15:00 EDT, Height Start [...] 02/02/20 11:42:00 EDT, [id number] 165.1, cm, 01/07/20 14:51:00 EST, Height, [...] Refills, Maintenance, 08/14/21 15:27:00 EDT, Chew Tablet, [facility]/pharmacy #[id number], Partial fill upon patient [...] 07/12/22 19:10:00 EDT, Route to Pharmacy Electronically, [facility]/pharmacy #[id number], 165.1, cm, 07/12/22 17:15:00 EDT, Height Start Date: 07/12/22 Status: Ordered fexofenadine 180 mg oral tablet 1 tablet = 180 mg, By Mouth, Daily, # 30 tablet, 3 Refills, Maintenance, 09/21/21 15:08:00 EST, Tablet, [facility]/pharmacy #[id number], Partial fill upon patient request if the prescription is for a schedule II opioid drug., 165.1, cm, 09/20/21 14:28:00 EST, Height Start Date: 09/21/21 Status: Ordered Flovent Diskus 100 mcg/inh inhalation powder 1 puffs, Inhalation, 2 times a day, # 60 Unknown, 0 Refills, Maintenance, 04/16/21 19:52:00 EDT, [facility] STORE 82000, 30, INHALE 1 PUFF BY MOUTH TWICE [...] tablet, 2 Refills, Maintenance, 07/12/22 19:13:00 EDT, [facility]/pharmacy #207, 165.1, cm, 07/12/22 17:15:00 EDT, Height [...] tablet, 11 Refills, Maintenance, 07/31/22 16:07:00 EDT, [facility]/pharmacy #[id number], 165.1, cm, 07/12/22 17:15:00 EDT, Height [...] 1 Refills, Maintenance, 02/02/22 14:07:00 EDT, Capsule, [facility]/pharmacy #[id number], Partial fill upon patient request if the prescription is for a schedule II opioid drug., 165.1, cm, 02/02/22 13:29:... Start Date: 02/02/22 Status: Ordered riboflavin 400 mg oral capsule 1 capsule = 400 mg, By Mouth, Daily, # 100 capsule, 2 Refills, Maintenance, 09/12/20 18:13:00 EST, Capsule, [facility]/pharmacy #[id number], 165.1, cm, 05/10/20 10:01:00 [...] tablet, 1 Refills, Maintenance, 08/17/21 15:39:00 EDT, [facility]/pharmacy #[id number], 165.1, cm, 08/14/21 14:44:00 EDT, Height Start Date: 08/17/21 Status: Ordered Symbicort 80mcg/4.5mcg Inhaler See Instructions, PRN, 1 puff 2 x per day BRand name covered by [facility], # 1 each, Refills 6, Tot. Refills 6, Maintenance, 09/29/21 9:04:00 EST, Instructions Replace Required Details Aerosol, Route to Pharmacy Electronically, [id number]... Start Date: 09/29/21 Status: Ordered Ventolin 90 [...] Refills, Maintenance, 09/20/21 15:14:00 EST, Chew Tablet, [facility]/pharmacy #[id number], Partial fill upon patient [...] Personnel Name: Ashley Faria MD Address: Address: [address] [place] [address]
--- OUTSIDE RECORDS SUMMARY | 2024-09-07 13:56 | XMS_ITS | Continuity of Care Document ---
Author Organization [facility] Address [address] [place] [address]- Care Team Providers Care Engineering And Operations Director Name Role Phone Broderick Kidd MD Primary Care Physician Encounter [facility] [id number] Date(s): 05/03/23 - 06/02/23 [facility] [address] [place] [address]- Attending Physician: Sosa Joy Admitting Physician: Admtr, Sosa Referring Physician: Admtr, Ar8 Allergies, Adverse Reactions, Alerts No Known Medication Allergies Immunizations Given and Recorded Vaccine Date Status Refusal Reason tetanus/diphtheria/pertussis, acel(Tdap) 04/25/23 Given tetanus/diphtheria/pertussis, acel(Tdap) 1 01/28/13 Given [id number] bivalent booster vax 01/03/23 Recorded influenza virus [...] VIS DATE 11/27/2011 2Result Comment: received at [facility] on [facility] in [place] 3Admin Note: flulaval vis given vis date 05/05/2012 4Result Comment: received 2nd dose at [facility] 5Result Comment: received at [facility] Medications acetaminophen 500 mg oral tablet 2 tablet, By Mouth, Every 8 hours, PRN NEEDED FOR PAIN, # 100 tablet, 3 Refills, Maintenance, 04/26/23 23:48:00 EDT, [facility] STORE 26141, 165, cm, 04/25/23 8:59:00 EDT, Height, 100, kg, 04/04/23 16:15:00 EDT, Dry Weight Start Date: 04/26/23 Status: Ordered albuterol 0.083% inhalation solution 1 vials, Inhalation, Every 6 hours, PRN NEEDED FOR WHEEZING/SHORTNESS OF BREATH, # 300 mL, 2 Refills, Maintenance, 10/19/22 10:14:00 EST, [facility] STORE 54054, 165.1, cm, 09/18/22 9:21:00 EST, Height Start Date: 10/19/22 Status: Ordered Eeggy-Hepfhf-Etcd 300 mg oral capsule 1 capsule, By Mouth, 2 times a day, # 60 capsule, 5 Refills, Maintenance, 05/12/23 20:20:00 EDT, [facility]/pharmacy #[id number], 165, cm, 05/08/23 10:12:00 EDT, Height, 100, kg, 04/04/23 16:15:00 EDT, Dry Weight Start Date: 05/12/23 Status: Ordered amitriptyline 10 mg oral tablet 1, tablet, By Mouth, Daily at bedtime, # 30 tablet, Refills 3, Tot. Refills 3, Maintenance, 05/16/23 10:48:00 EDT, Route to Pharmacy Electronically, [facility]/pharmacy #[id number], 165, cm, 05/08/23 10:12:00 EDT, Height, 100, kg, 04/04/23 16:15:00 EDT, Dry Weight Start Date: 05/16/23 Status: Ordered ammonium lactate 5% topical lotion 1 application, Topically, 2 times a day, PRN Dry Skin, apply and rub in well, # 120 Gm, 0 Refills, Maintenance, 12/05/22 17:09:00 EST, Lotion, [facility]/pharmacy #[id number], Partial fill upon patient request ifthe [...] 11/23/22 9:13:00 EST, Route to Pharmacy Electronically, [facility]/pharmacy #[id number], Partial fill upon patient request if [...] Gm, 2 Refills, Maintenance, 05/01/23 20:57:00 EDT, [facility] STORE 78585, 25, APPLY TOPICALLY 4 TIMES A DAY, NEEDED NEUROPATHIC PAIN, 165, cm, 04/25/23 8:59:00 EDT, Height... Start Date: 05/01/23 Status: Ordered famotidine 20 mg oral tablet 1, tablet, By Mouth, 2 times a day, # 60 tablet, Refills 5, Tot. Refills 5, Maintenance, 02/27/23 10:38:00 EDT, Route to Pharmacy Electronically, [facility]/pharmacy #[id number], 168, cm, 01/15/23 7:16:00 EDT, Height, [...] patch, 0 Refills, Maintenance, 02/05/23 23:52:00 EDT, [facility] STORE [facility]22, 30, APPLY 1 PATCH TOPICALLY DAILY,X30 DAYS NEEDED FOR PAIN MILD, REMOVE AFTER 12 HOURS, 168,... Start Date: 02/05/23 Status: Ordered loratadine 10 mg oral tablet 1, tablet, By Mouth, 2 times a day, # 60 tablet, Refills 0, Maintenance, 12/31/22 14:48:00 EST, Route to Pharmacy Electronically, [facility], 165.1, cm, 12/05/22 15:21:00 EST, Height Start Date: 12/31/22 Stop Date: 01/30/23 Status: Ordered losartan 50 mg oral tablet 50 mg, 1, tablet, By Mouth, Daily, # 30 tablet, Refills 3, Tot. Refills 3, Maintenance, 05/08/23 10:35:00 EDT, Route to Pharmacy Electronically, [facility]/pharmacy #[id number], Partial fill upon patient request if the prescription is for a schedule II opioid drug... Start Date: 05/08/23 Status: Ordered meclizine 25 mg oral tablet 1 tablet, By Mouth, 2 times a day, PRN NEEDED FOR DIZZINESS, # 60 tablet, 0 Refills, Maintenance, 05/30/23 16:12:00 EDT, [facility], 165, cm, 05/22/23 9:22:00 EDT, Height, 100, kg, 04/04/23 16:15:00 EDT, Dry Weight Start Date: 05/30/23 Status: Ordered MiraLax oral powder for reconstitution [...] tablet, 11 Refills, Maintenance, 07/31/22 16:07:00 EDT, [facility]/pharmacy #2071, 165.1, cm, 07/12/22 17:15:00 EDT, Height Start Date: 07/31/22 Status: Ordered NuLYTELY with Flavor Packs oral powder for reconstitution 240 mL, By Mouth, Every 10 minutes, May substitute any PEG 3350 solution available SPLIT PREP METHOD, # 1 each, 0 Refills, Maintenance, 01/14/23 17:00:00 EDT, REC Powder, [facility]/pharmacy #[id number], test date 01/15/23, 240 mL By [...] 5 Refills, Maintenance, 11/22/22 14:08:00 EST, Capsule, [facility]/pharmacy #2071, Partial fill upon patient request if the prescription is for a schedule II opioid drug., 165.1, cm, 11/22/22 13:38:0... Start Date: 11/22/22 Status: Ordered riboflavin 400 mg oral capsule 1 capsule = 400 mg, By Mouth, Daily, # 100 capsule, 2 Refills, Maintenance, 05/12/23 20:23:00 EDT, Capsule, [facility]/pharmacy #2071, 165, cm, 05/08/23 10:12:00 EDT, Height, [...] 05/12/24 20:19:00 EDT, 05/12/23 20:19:00 EDT, Tablet, [facility]/pharmacy #2071, Partial fill upon patient request... Start [...] Required Details Aerosol, Route to Pharmacy Electronically, [id number]... Start Date: 09/29/21 Status: Ordered Ventolin 90 mcg Inhaler 2, puffs, Inhalation, 4 times a day, PRN, Refills 0, Maintenance, 11/26/18 9:56:44 EST Start Date: 11/26/18 Status: Ordered Vitamin B12 500 mcg oral tablet 1 tablet = 500 mcg, By Mouth, Daily, # 90 tablet, 1 Refills, Maintenance, 05/12/23 20:24:00 EDT, Tablet, [facility]/pharmacy #2071, Partial fill upon patient request if [...] Refills, Maintenance, 09/20/21 15:14:00 EST, Chew Tablet, [facility]/pharmacy #2071, Partial fill upon patient request if [...] Team Personnel Name: Broderick Kidd MD Position: [facility] Resident Member Role: PCP Address: Address: [address] [place] [address] [place] [address]- Care Team Related Persons Name: MARIO GERARD Address: home [address] [place] [address] Name: CARI GARCÍA Address: home [address] [place] [address] Name: NOELLE MAY
--- OUTSIDE RECORDS SUMMARY | 2024-09-07 13:56 | XMS_ITS | Continuity of Care Document ---
Author Organization [facility] Address Unknown Care Team Providers Care Switch House Operator Name Role Phone Ashley Faria MD Primary Care Physician Encounter [facility] Date(s): 02/02/22 - 03/04/22 [facility] Attending Physician: Sosa Joy Admitting [...] 5 01/28/13 Given 1Result Comment: received at [facility] on [facility] in [place] 2Admin Note: flulaval vis given vis date 05/05/2012 3Result Comment: received 2nd dose at [facility] 4Result Comment: received at [facility] 5Admin Note: VIS GIVEN VIS DATE 11/27/2011 Medications acetaminophen 500 mg oral tablet 2 tablet, By Mouth, Every 8 hours, PRN NEEDED FOR PAIN, # 100 tablet, 3 Refills, [facility] STORE [address]111, 165.1, cm, 09/20/21 14:28:00 EST, Height Start Date: 10/10/21 Status: Ordered albuterol 0.083% inhalation solution 3 mL = 2.5 mg, Neb, Every 6 hours, PRN Wheezing/Shortness of Breath, # 360 mL, 2 Refills, Maintenance, 09/20/21 15:13:00 EST, [facility]/pharmacy #1, 165.1, cm, 09/20/21 14:28:00 EST, Height Start Date: 09/20/21 Status: Ordered albuterol CFC free 90 mcg/inh inhalation aerosol 1, puffs, Inhalation, 4 times a day, PRN, # 8 Gm, Refills 11, Tot. Refills 11, Maintenance, 07/21/21 17:07:00 EDT, Aerosol, Route to Pharmacy Electronically, [id number], [facility]/pharmacy #2070, 165.1, cm, 03/22/21 14:17:00 EDT, H... Start Date: 07/21/21 Status: Ordered Veszh-Mrakzf-Cfav 300 mg oral capsule 1 capsule, By Mouth, 2 times a day, OTC N/C., # 60 capsule, 5 Refills, Maintenance, 08/17/21 15:40:00 EDT, [facility]/pharmacy #1, 165.1, cm, 08/14/21 14:44:00 EDT, Height Start Date: 08/17/21 Status: Ordered amitriptyline 10 mg oral tablet 1, tablet, By Mouth, Daily at bedtime, # 90 tablet, Refills 3, Tot. Refills 3, Maintenance, 08/14/21 15:13:00 EDT, Route to Pharmacy Electronically, [facility]/pharmacy #2070, 165.1, cm, 08/14/21 14:44:00 EDT, Height [...] 02/02/20 11:42:00 EDT, Route to Pharmacy Electronically, [facility]/pharmacy #2071, 165.1, cm, 01/07/20 14:51:00 EST, [...] Refills, Maintenance, 08/14/21 15:27:00 EDT, Chew Tablet, [facility]/pharmacy #2071, Partial [...] 09/20/21 15:12:00 EST, Route to Pharmacy Electronically, [facility]/pharmacy #2071, Partial fill upon patient request if the prescription is for a schedule II opi... Start Date: 09/20/21 Stop Date: 01/18/22 Status: Ordered fexofenadine 180 mg oral tablet 1 tablet = 180 mg, By Mouth, Daily, # 30 tablet, 3 Refills, Maintenance, 09/21/21 15:08:00 EST, Tablet, [facility]/pharmacy #[id number], Partial fill upon patient request if the prescription is for a schedule II opioid drug., 165.1, cm, 09/20/21 14:28:00 EST, Height Start Date: 09/21/21 Status: Ordered Flovent Diskus 100 mcg/inh inhalation powder 1 puffs, Inhalation, 2 times a day, # 60 Unknown, 0 Refills, Maintenance, 04/16/21 19:52:00 EDT, [facility], 30, INHALE 1 PUFF BY MOUTH TWICE [...] FOR DIZZINESS, # 30 tablet, 2 Refills, [facility] STORE 78846, 165.1, cm, 08/14/21 14:44:00 EDT, Height Start [...] tablet, 2 Refills, Maintenance, 01/05/22 14:37:00 EST, [facility]/pharmacy #2071, 165.1, cm, 10/25/21 10:10:00 EST, Height Start Date: 01/05/22 Status: Ordered Nebulizer/Compressor See Instructions, # 1 each, Refills 0, Tot. Refills 0, Maintenance, for PRN albuterol inhaled, 11/21/17 16:27:13, Compound Start Date: 11/21/17 Status: Ordered omeprazole 20 mg oral enteric coated capsule 1 capsule, By Mouth, Daily, # 30 capsule, 2 Refills, [facility] STORE 19449, 165.1, cm, 09/20/21 14:28:00 EST, Height Start Date: 10/05/21 Status: Ordered Plaquenil 200 mg oral tablet 400 mg, 2, tablet, By Mouth, Daily, Refills 0, Maintenance, 11/28/16 10:20:10 EST Start Date: 11/28/16 Status: Ordered pregabalin 150 mg oral capsule 1 capsule = 150 mg, By Mouth, 2 times a day, # 180 capsule, 1 Refills, Maintenance, 02/02/22 14:07:00 EDT, Capsule, [facility]/pharmacy #2071, Partial fill upon patient request if the prescription is for a schedule II opioid drug., 165.1, cm, 02/02/22 13:29:... Start Date: 02/02/22 Status: Ordered riboflavin 400 mg oral capsule 1 capsule = 400 mg, By Mouth, Daily, # 100 capsule, 2 Refills, Maintenance, 09/12/20 18:13:00 EST, Capsule, [facility]/pharmacy #[id number], 165.1, cm, 05/10/20 10:01:00 EDT, [...] tablet, 1 Refills, Maintenance, 08/17/21 15:39:00 EDT, [facility]/pharmacy #2071, 165.1, cm, 08/14/21 14:44:00 EDT, Height Start Date: 08/17/21 Status: Ordered Symbicort 80mcg/4.5mcg Inhaler See Instructions, PRN, 1 puff 2 x per day BRand name covered by [facility], # 1 each, Refills 6, Tot. Refills 6, Maintenance, 09/29/21 9:04:00 EST, Instructions Replace Required Details Aerosol, Route to Pharmacy Electronically, [id number]... Start Date: 09/29/21 Status: Ordered Ventolin 90 [...] Refills, Maintenance, 09/20/21 15:14:00 EST, Chew Tablet, [facility]/pharmacy #[id number], Partial [...] apnea (AIRAM ), on CPAP(Confirmed) Active *BHN/BHBENNETT/Leodan Rich-[phone]/[facility], active care coordination(Confirmed) Active Sjogren's syndrome(Confirmed) Active Smoker, 5-10 cigarettes per day since age 16. Quit once for 2.5 years(Confirmed) Active Systemic lupus(Confirmed) Active Chronic urticaria(Confirmed) Active Vertigo(Confirmed) Active Social History Social History Type Response Tobacco Started at age: 13 Y ears. Sex Female
--- OUTSIDE RECORDS SUMMARY | 2024-09-07 13:56 | XMS_ITS | Continuity of Care Document ---
Author Organization [facility] Address [address] [place] [id number]- Care Team Providers Care Manager Life Insurance Name Role Phone Broderick Kidd MD Primary Care Physician Encounter [facility] Date(s): 11/21/23 - 12/21/23 [facility] [address] [place] [id number] Allergies, Adverse Reactions, Alerts No Known [...] 04/25/23 Given tetanus/diphtheria/pertussis, acel(Tdap) 3 01/28/13 Given [id number] bivalent booster vax 01/03/23 Recorded SARS-CoV-2 (COVID-19) [...] 07/05/08 Recor ded 1Result Comment: received at [facility] on [facility] in [place] 2Admin Note: flulaval vis given vis date 05/05/2012 3Admin Note: VIS GIVEN VIS DATE 11/27/2011 4Result Comment: received 2nd dose at [facility] 5Result Comment: received at [facility] Medications acetaminophen 500 mg oral tablet 2 tablet, By Mouth, Every 8 hours, PRN NEEDED FOR PAIN, # 100 tablet, 3 Refills, Maintenance, 10/11/23 11:48:00 EST, [facility]/pharmacy #[id number], 165, cm, 09/27/23 10:21:00 EST, Height, 100, kg, 04/04/23 16:15:00 EDT, Dry Weight Start Date: 10/11/23 Status: Ordered albuterol 0.083% inhalation solution 1 vials, Inhalation, Every 6 hours, PRN NEEDED FOR WHEEZING/SHORTNESS OF BREATH, # 300 mL, 2 Refills, Maintenance, 10/19/22 10:14:00 EST, [facility] STORE 39869, 165.1, cm, 09/18/22 9:21:00 EST, Height Start Date: 10/19/22 Status: Ordered albuterol CFC free 90 mcg/inh inhalation aerosol 2, puffs, Inhalation, Every 6 hours, PRN, # 1 each, Refills 3, Tot. Refills 3, Maintenance, 10/11/23 11:53:00 EST, Route to Pharmacy Electronically, [id number], [facility]/pharmacy#[id number], 165, cm, 09/27/23 10:21:00 EST, Height, 100,... Start Date: 10/11/23 Status: Ordered Ewxor-Baoers-Bjik 300 mg oral capsule 1 capsule, By Mouth, 2 times a day, # 60 capsule, 5 Refills, Maintenance, 05/12/23 20:20:00 EDT, [facility]/pharmacy #[id number], 165, cm, 05/08/23 10:12:00 EDT, Height, 100, kg, 04/04/23 16:15:00 EDT, Dry Weight Start Date: 05/12/23 Status: Ordered amitriptyline 10 mg oral tablet 1, tablet, By Mouth, Daily at bedtime, # 90 tablet, Refills 0, Maintenance, 08/13/23 13:34:00 EDT, Route to Pharmacy Electronically, [facility] STORE 58704, 165, cm, 06/03/23 9:52:00 EDT, Height, 100, kg, 04/04/23 16:15:00 EDT, Dry Weight Start Date: 08/13/23 Status: Ordered ammonium lactate 5% topical lotion 1 application, Topically, 2 times a day, PRN Dry Skin, apply and rub in well, # 120 Gm, 0 Refills, Maintenance, 12/05/22 17:09:00 EST, Lotion, [facility]/pharmacy #[id number], Partial fill upon patient [...] 11/23/22 9:13:00 EST, [id number] Partial fill upon patient request if [...] Gm, 2 Refills, Maintenance, 10/24/23 12:59:00 EST, [facility]/pharmacy #2071, 25, APPLY TOPICALLY 4 TIMES A DAY, NEEDED NEUROPATHIC PAIN, 165, cm, 10/11/23 14:32:00 EST, He... Start Date: 10/24/23 Status: Ordered famotidine 20 mg oral tablet 1, tablet, By Mouth, 2 times a day, # 180 tablet, Refills 1, Tot. Refills 1, Maintenance, 09/03/23 15:24:00 EDT, Route to Pharmacy Electronically, [facility]/pharmacy #[id number], 165, cm, 06/03/23 9:52:00 EDT, Height, 100, kg, 04/04/23 16:15:00 EDT, Dry Weight Start Date: 09/03/23 Status: Ordered hydrochlorothiazide 25 mg oral tablet 25 mg, 1, tablet, By Mouth, Daily, # 30 tablet, Refills 2, Tot. Refills 2, Maintenance, 09/27/23 11:20:00 EST, Route to Pharmacy Electronically, [facility]/pharmacy #[id number], Partial fill upon patient [...] Refills, Maintenance, 02/05/23 23:52:00 EDT, [facility], 30, APPLY 1 PATCH TOPICALLY DAILY,X30 DAYS NEEDED FOR PAIN MILD, REMOVE AFTER 12 HOURS, 168,... Start Date: 02/05/23 Status: Ordered loratadine 10 mg oral tablet 1, tablet, By Mouth, 2 times a day, # 60 tablet, Refills 0, Maintenance, 12/31/22 14:48:00 EST, Route to Pharmacy Electronically, [facility], 165.1, cm, 12/05/22 15:21:00 EST, Height Start Date: 12/31/22 Stop Date: 01/30/23 Status: Ordered losartan 50 mg oral tablet 50 mg, 1, tablet, By Mouth, Daily, # 90 tablet, Refills 1, Tot. Refills 1, Maintenance, 10/02/23 13:31:00 EST, Route to Pharmacy Electronically, [facility]/pharmacy #[id number], Partial fill upon patient request if the prescription is for a schedule II opioid drug... Start Date: 10/02/23 Status: Ordered meclizine 25 mg oral tablet 1 tablet, By Mouth, 2 times a day, PRN NEEDED FOR DIZZINESS, # 60 tablet, 0 Refills, Maintenance, 05/30/23 16:12:00 EDT, [facility], 165, cm, 05/22/23 9:22:00 EDT, Height, 100, [...] 07/07/24 15:56:00 EDT, 07/07/23 15:56:00 EDT, Tablet, [facility]/pharmacy #[id number],Partial fill upon patient request if the prescripti... Start Date: 07/07/23 Stop Date: 07/07/24 Status: Ordered ondansetron 8 mg oral tablet 1 tablet, By Mouth, Daily, PRN NEEDED FOR NAUSEA AND VOMITING, # 30 tablet, 0 Refills, Maintenance, 09/23/23 10:53:00 EST, [facility], 165, cm, 09/12/23 13:12:00 EST, Height, 100, [...] 5 Refills, Maintenance, 11/22/22 14:08:00 EST, Capsule, [facility]/pharmacy #[id number], Partial fill upon patient request if the prescription is for a schedule II opioid drug., 165.1, cm, 11/22/22 13:38:0... Start Date: 11/22/22 Status: Ordered riboflavin 400 mg oral capsule 1 capsule = 400 mg, By Mouth, Daily, # 100 capsule, 2 Refills, Maintenance, 05/12/23 20:23:00 EDT, Capsule, [facility]/pharmacy #[id number], 165, cm, 05/08/23 10:12:00 EDT, [...] Replace Required Details Aerosol, Route toPharmacy Electronically, [id number]... Start Date: 10/11/23 Status: Ordered Ventolin 90 mcg Inhaler 2, puffs, Inhalation, 4 times a day, PRN, Refills 0, Maintenance, 11/26/18 9:56:44 EST Start Date: 11/26/18 Status: Ordered Vitamin B-12 500 mcg oral tablet 1 tablet = 500 mcg, By Mouth, Daily, # 90 tablet, 1 Refills, Maintenance, 09/11/23 9:07:00 EST, Tablet, [facility]/pharmacy #[id number], Partial fill upon patient request if the prescription is for a schedule II opioid drug., 165, cm, 06/03/23 9:52:00 EDT, Height,... Start Date: 09/11/23 Stop Date: 03/09/24 Status: Ordered Vitamin B12 500 mcg oral tablet 1 tablet = 500 mcg, By Mouth, Daily, # 90 tablet, 1 Refills, Maintenance, 05/12/23 20:24:00 EDT, Tablet, [facility]/pharmacy #6284, Partial fill upon patient request if the prescription is for a schedule IIopioid drug., 165, cm, 05/08/23 10:12:00 EDT, [facility]. Start Date: 05/12/23 Status: Ordered Vitamin C [...] Active 1Follows with therapist and psychiatrist at [place] per previous notes 2PFTs show no obstruction. However has h/o asthma. Ct chest in 07/27 and pulm note says restrictive lung disease mild similiar to findings on PFT 3Follows with therapist and psychiatrist at [place] per previous notes 4Sleep study in 2015. [...] Team Personnel Name: Broderick Kidd MD Position: [facility] Resident Member Role: PCP Address: Address: [address] [place] [address] [place] [address]- Care Team Related Persons Name: MARIO GERARD Address: home [address] [place] [address] Name: CARI GARCÍA Address: home [address] [place] [address] Name: NOELLE MAY
--- OUTSIDE RECORDS SUMMARY | 2024-09-07 13:56 | XMS_ITS | Continuity of Care Document ---
Author Organization [facility] Address [address] [place] [address]- Care Team Providers Care Recreational Leader Name Role Phone Broderick Kidd MD Primary Care Physician [place] [facility] [place]/30/23 - 09/29/[address] [address] Attending Physician: Sosa Joy Admitting Physician: AdmtrSosa Referring Physician: Admtr, Ar8 Allergies, Adverse Reactions, Alerts No Known Allergies [...] 04/25/23 Given tetanus/diphtheria/pertussis, acel(Tdap) 3 01/28/13 Given [id number] bivalent booster vax 01/03/23 Recorded SARS-CoV-2 (COVID-19) [...] Recor ded 1Result Comment: received at [facility] on [facility] in [place] 2Admin Note: flulaval vis given vis date 05/05/2012 3Admin Note: VIS GIVEN VIS DATE 11/27/2011 4Result Comment: received 2nd dose at [facility] 5Result Comment: received at [facility] Medications acetaminophen 500 mg oral tablet 2 tablet, By Mouth, Every 8 hours, PRN NEEDED FOR PAIN, # 100 tablet, 3 Refills, Maintenance, 04/26/23 23:48:00 EDT, [facility]111, 165, cm, 04/25/23 8:59:00 EDT, Height, 100, kg, 04/04/23 16:15:00 EDT, Dry Weight Start Date: 04/26/23 Status: Ordered albuterol 0.083% inhalation solution 1 vials, Inhalation, Every 6 hours, PRN NEEDED FOR WHEEZING/SHORTNESS OF BREATH, # 300 mL, 2 Refills, Maintenance, 10/19/22 10:14:00 EST, [facility] STORE 19215, 165.1, cm, 09/18/22 9:21:00 EST, Height Start Date: 10/19/22 Status: Ordered Mdtjp-Mtyetx-Efiy 300 mg oral capsule 1 capsule, By Mouth, 2 times a day, # 60 capsule, 5 Refills, Maintenance, 05/12/23 20:20:00 EDT, [facility]/pharmacy #[id number], 165, cm, 05/08/23 10:12:00 EDT, Height, 100, kg, 04/04/23 16:15:00 EDT, Dry Weight Start Date: 05/12/23 Status: Ordered amitriptyline 10 mg oral tablet 1, tablet, By Mouth, Daily at bedtime, # 90 tablet, Refills 0, Maintenance, 10/10/23 13:34:00 EDT, Route to Pharmacy Electronically, [facility], 165, cm, 06/03/23 9:52:00 EDT, Height, 100, kg, 04/04/23 16:15:00 EDT, Dry Weight Start Date: 08/13/23 Status: Ordered ammonium lactate 5% topical lotion 1 application, Topically, 2 times a day, PRN Dry Skin, apply and rub in well, # 120 Gm, 0 Refills, Maintenance, 12/05/22 17:09:00 EST, Lotion, [facility]/pharmacy #[id number], Partial fill upon patient request ifthe [...] 9:13:00 EST, Route to Pharmacy Electronically, [facility]/pharmacy #[id number], Partial fill upon patient request if [...] Gm, 2 Refills, Maintenance, 07/16/23 6:00:00 EDT, [facility] STORE 81362, 25, APPLY TOPICALLY 4 TIMES A DAY, NEEDED NEUROPATHIC PAIN, 165, cm, 06/03/23 9:52:00 EDT, Height,... Start Date: 07/16/23 Status: Ordered famotidine 20 mg oral tablet 1, tablet, By Mouth, 2 times a day, # 180 tablet, Refills 1, Tot. Refills 1, Maintenance, 09/03/23 15:24:00 EDT, Route to Pharmacy Electronically, [facility]/pharmacy #[id number], 165, cm, 06/03/23 9:52:00 EDT, Height, 100, kg, 04/04/23 16:15:00 EDT, Dry Weight Start Date: 09/03/23 Status: Ordered hydrochlorothiazide 25 mg oral tablet 25 mg, 1, tablet, By Mouth, Daily, # 30 tablet, Refills 2, Tot. Refills 2, Maintenance, 09/27/23 11:20:00 EST, Route to Pharmacy Electronically, [facility]/pharmacy #[id number], Partial fill upon patient request if [...] Refills, Maintenance, 02/05/23 23:52:00 EDT, [facility], 30, APPLY 1 PATCH TOPICALLY DAILY,X30 DAYS NEEDED FOR PAIN MILD, REMOVE AFTER 12 HOURS, 168,... Start Date: 02/05/23 Status: Ordered loratadine 10 mg oral tablet 1, tablet, By Mouth, 2 times a day, # 60 tablet, Refills 0, Maintenance, 12/31/22 14:48:00 EST, Route to Pharmacy Electronically, [facility], 165.1, cm, 12/05/22 15:21:00 EST, Height Start Date: 12/31/22 Stop Date: 01/30/23 Status: Ordered losartan 50 mg oral tablet 50 mg, 1, tablet, By Mouth, Daily, # 30 tablet, Refills 3, Tot. Refills 3, Maintenance, 05/08/23 10:35:00 EDT, Route to Pharmacy Electronically, [facility]/pharmacy #[id number], Partial fill upon patient request if the prescription is for a schedule II opioid drug... Start Date: 05/08/23 Status: Ordered meclizine 25 mg oral tablet 1 tablet, By Mouth, 2 times a day, PRN NEEDED FOR DIZZINESS, # 60 tablet, 0 Refills, Maintenance, 05/30/23 16:12:00 EDT, [facility] 24456, 165, cm, 05/22/23 9:22:00 EDT, Height, 100, kg, 04/04/23 16:15:00 EDT, Dry Weight Start Date: 05/30/23 Status: Ordered Myrbetriq 50 mg oral tablet, extended release 1 tablet, By Mouth, Daily, DO NOT CRUSH OR CHEW., # 90 tablet, 1 Refills, Maintenance, 09/19/23 16:25:00 EST, [facility]/pharmacy #[id number], 165, cm, 09/12/23 13:12:00 EST, Height, 100, kg, 04/04/23 16:15:00 EDT, Dry Weight Start Date: 09/19/23 Status: Ordered naratriptan 2.5 mg oral tablet 1 tablet = 2.5 mg, By Mouth, Daily, PRN for migraine headache, may repeat dose once in 4 hours, # 18 tablet, 1 Refills, Acute 07/07/24 15:56:00 EDT, 07/07/23 15:56:00 EDT, Tablet, [facility]/pharmacy #[id number],Partial fill upon patient request if the prescripti... Start Date: 07/07/23 Stop Date: 07/07/24 Status: Ordered ondansetron 8 mg oral tablet 1 tablet, By Mouth, Daily, PRN NEEDED FOR NAUSEA AND VOMITING, # 30 tablet, 0 Refills, Maintenance, 09/23/23 10:53:00 EST, [facility], 165, cm, 09/12/23 13:12:00 EST, Height, 100, [...] Refills, Maintenance, 11/22/22 14:08:00 EST, Capsule, [facility]/pharmacy #[id number], Partial fill upon patient request if [...] per day BRand name covered by [facility], # 1 each, Refills 6, Tot. Refills 6, Maintenance, 09/29/21 9:04:00 EST, Instructions Replace Required Details Aerosol, Route to Pharmacy Electronically, [id number]... Start Date: 09/29/21 Status: Ordered Ventolin 90 mcg Inhaler 2, puffs, Inhalation, 4 times a day, PRN, Refills 0, Maintenance, 11/26/18 9:56:44 EST Start Date: 11/26/18 Status: Ordered Vitamin B-12 500 mcg oral tablet 1 tablet = 500 mcg, By Mouth, Daily, # 90 tablet, 1 Refills, Maintenance, 09/11/23 9:07:00 EST, Tablet, [facility]/pharmacy #[id number], Partial fill upon patient request if the prescription is for a schedule II opioid drug., 165, cm, 06/03/23 9:52:00 EDT, Height,... Start Date: 09/11/23 Stop Date: 03/09/24 Status: Ordered Vitamin B12 500 mcg oral tablet 1 tablet = 500 mcg, By Mouth, Daily, # 90 tablet, 1 Refills, Maintenance, 05/12/23 20:24:00 EDT, Tablet, [facility]/pharmacy #[id number], Partial fill upon patient request if [...] Team Personnel Name: Broderick Kidd MD Position: [facility] Resident Member Role: PCP Address: Address: [address] [place] [address]- Care Team Related Persons Name: MARIO GERARD Address: home [address] [place] [address] Name: CARI GARCÍA Address: home [address] [place] [address] Name: NOELLE MAY
--- OUTSIDE RECORDS SUMMARY | 2024-09-07 13:56 | XMS_ITS | Continuity of Care Document ---
Author Organization [facility] Address [address] [place] [address]- Care Team Providers Care Voip Network Engineer Name Role Phone Giana MEHTA, Ashley Primary Care Physician [phone] [place] [facility] [place]s): 05/10/20 - 05/17/20 [facility] [address] [place] [address]- [facility] Attending Physician: Makayla MEHTA, Javier Gage Referring Physician: Otilia MEHTA, Reggie Allergies, Adverse [...] Inhalation, 2 times a day, Prescribed by [facility]., # 1 each, Refills 11, Tot. Refills 11, Maintenance, 03/13/18 11:00:50 EDT, Inhaler, Route to Pharmacy Electronically, [id number], [facility]/pharmacy #[id number] Start Date: 03/13/18 Status: Ordered albuterol 0.083% inhalation solution 3 mL = 2.5 mg, Neb, Every 6 hours, PRN Wheezing/Shortness of Breath, # 360 mL, 2 Refills, Maintenance, 12/04/19 15:27:00 EST, [facility]/pharmacy #207, 165.1, cm, 12/04/19 14:54:00 EST, Height, 86.4, kg, 08/10/19 14:42:00 EDT, Dry Weight Start Date: 12/04/19 Status: Ordered Lety Allergy 60 mg oral tablet 3 tablet = 180 mg, By Mouth, Daily, Prescribed by Senior Risk Analyst in [place]., # 90 tablet, 0 Refills, Maintenance, 02/16/16 14:46:50, Tablet Start Date: 02/16/16 Stop Date: 03/17/16 Status: Ordered amitriptyline 10 mg oral tablet 10 mg, 1, tablet, By Mouth, Daily at bedtime, # 30 tablet, Refills 5, Tot. Refills 5, Maintenance, 06/30/19 15:15:49 EDT, Route to Pharmacy Electronically, [id number], [facility]/pharmacy #[id number] Start Date: 06/30/19 Status: Ordered [...] 02/02/20 11:42:00 EDT, Route to Pharmacy Electronically, [facility]/pharmacy #[id number], 165.1, cm, 01/07/20 14:51:00 EST, [...] BY MOUTH DAILY,INSTR:DO NOT CRUSH OR CHEW, [facility]/pharmacy #207 Start Date: 07/07/19 Status: Ordered Nebulizer/Compressor See Instructions, # 1 each, Refills 0, Tot. Refills 0, Maintenance, for PRN albuterol inhaled, 11/21/17 16:27:13, Compound Start Date: 11/21/17 Status: Ordered omeprazole 20 mg oral enteric coated capsule 1 capsule = 20 mg, By Mouth, Daily, # 30 capsule, 2 Refills, Maintenance, 04/14/20 7:47:00 EDT, [id number], 165.1, cm, 01/07/20 14:51:00 EST, Height, [...] tablet, 2 Refills, Maintenance, 01/07/20 15:12:00 EST, [facility]/pharmacy #[id number], 165.1, cm, 01/07/20 14:51:00 EST, [...] apnea (AIRAM ), on CPAP(Confirmed) Active *BHN/BHCP/Leodan GoodmanAoabtnx-[phone]/Health halfway, active care coordination(Confirmed) Active Sjogren's syndrome(Confirmed) Active Smoker, 5-10 cigarettes per day since age 16. Quit once for 2.5 years(Confirmed) Active Systemic lupus(Confirmed) Active Chronic urticaria(Confirmed) Active Vertigo(Confirmed) Active Vital Signs Most recent to oldest [Reference Range]: 1 Height 165.10 cm (05/10/20 10:01 AM) Weight 95.8 kg (05/10/20 10:01 AM) Oxygen Saturation [94-100 %] 99 % (05/10/20 10:01 AM) Pulse Rate [55-90 bpm] 68 bpm (05/10/20 10:01 AM) Body Mass Index [18.5-24.99] 35.15 *>HHI* (05/10/20 10:01 AM) Blood Pressure [90-138/55-84 mm Hg] 128/ 89mm Hg (05/10/20 10:01 AM) Temperature [96.8-100.4 DegF] 97.3 DegF (05/10/20 10:01 AM) Blood pressure sites Arm, left (05/10/20 10:01 AM) Temperature Route Temporal (05/10/20 10:01 AM) Social History Social History Type Response Tobacco Started at age: 13 Y ears. Sex Female
--- OUTSIDE RECORDS SUMMARY | 2024-09-07 13:56 | XMS_ITS | Continuity of Care Document ---
Author Organization [facility] Address [address] [place] [address]- Care Team Providers Care Systems Development Consultant Name Role Phone Broderick Kidd MD Primary Care Physician Encounter [facility] Date(s): 04/25/23 - 05/25/23 [facility] [address] [place] [address]- Attending Physician: Sosa Joy Admitting Physician: Sosa Joy Referring Physician: AdmtrSosa Allergies, Adverse Reactions, Alerts No Known Medication Allergies Immunizations Given and Recorded Vaccine Date Status Refusal Reason tetanus/diphtheria/pertussis, acel(Tdap) 04/25/23 Given tetanus/diphtheria/pertussis, acel(Tdap) 1 01/28/13 Given [id number] bivalent booster vax 01/03/23 Recorded influenza virus [...] VIS DATE 11/27/2011 2Result Comment: received at [facility] on [facility] in [place] 3Admin Note: flulaval vis given vis date 05/05/2012 4Result Comment: received 2nd dose at [facility] 5Result Comment: received at [facility] Medications acetaminophen 500 mg oral tablet 2 tablet, By Mouth, Every 8 hours, PRN NEEDED FOR PAIN, # 100 tablet, 3 Refills, Maintenance, 04/26/23 23:48:00 EDT, [facility] STORE 94647, 165, cm, 04/25/23 8:59:00 EDT, Height, 100, kg, 04/04/23 16:15:00 EDT, Dry Weight Start Date: 04/26/23 Status: Ordered albuterol 0.083% inhalation solution 1 vials, Inhalation, Every 6 hours, PRN NEEDED FOR WHEEZING/SHORTNESS OF BREATH, # 300 mL, 2 Refills, Maintenance, 10/19/22 10:14:00 EST, [facility] STORE 96498, 165.1, cm, 09/18/22 9:21:00 EST, Height Start Date: 10/19/22 Status: Ordered Qblet-Ljsnyb-Lafa 300 mg oral capsule 1 capsule, By Mouth, 2 times a day, # 60 capsule, 5 Refills, Maintenance, 05/12/23 20:20:00 EDT, [facility]/pharmacy #[id number], 165, cm, 05/08/23 10:12:00 EDT, Height, 100, kg, 04/04/23 16:15:00 EDT, Dry Weight Start Date: 05/12/23 Status: Ordered amitriptyline 10 mg oral tablet 1, tablet, By Mouth, Daily at bedtime, # 30 tablet, Refills 3, Tot. Refills 3, Maintenance, 05/16/23 10:48:00 EDT, Route to Pharmacy Electronically, [facility]/pharmacy #[id number], 165, cm, 05/08/23 10:12:00 EDT, Height, 100, kg, 04/04/23 16:15:00 EDT, Dry Weight Start Date: 05/16/23 Status: Ordered ammonium lactate 5% topical lotion 1 application, Topically, 2 times a day, PRN Dry Skin, apply and rub in well, # 120 Gm, 0 Refills, Maintenance, 12/05/22 17:09:00 EST, Lotion, [facility]/pharmacy #[id number], Partial fill upon patient [...] 11/23/22 9:13:00 EST, Route to Pharmacy Electronically, [facility]/pharmacy #[id number], Partial fill upon patient [...] Gm, 2 Refills, Maintenance, 05/01/23 20:57:00 EDT, [facility] STORE 72974, 25, APPLY TOPICALLY 4 TIMES A DAY, NEEDED NEUROPATHIC PAIN, 165, cm, 04/25/23 8:59:00 EDT, Height... Start Date: 05/01/23 Status: Ordered famotidine 20 mg oral tablet 1, tablet, By Mouth, 2 times a day, # 60 tablet, Refills 5, Tot. Refills 5, Maintenance, 02/27/23 10:38:00 EDT, Route to Pharmacy Electronically, [facility]/pharmacy #[id number], 168, cm, 01/15/23 7:16:00 EDT, Height, [...] patch, 0 Refills, Maintenance, 02/05/23 23:52:00 EDT, [facility] STORE 70296, 30, APPLY 1 PATCH TOPICALLY DAILY,X30 DAYS NEEDED FOR PAIN MILD, REMOVE AFTER 12 HOURS, 168,... Start Date: 02/05/23 Status: Ordered loratadine 10 mg oral tablet 1, tablet, By Mouth, 2 times a day, # 60 tablet, Refills 0, Maintenance, 12/31/22 14:48:00 EST, Route to Pharmacy Electronically, [facility] STORE 90289, 165.1, cm, 12/05/22 15:21:00 EST, Height Start Date: 12/31/22 Stop Date: 01/30/23 Status: Ordered losartan 50 mg oral tablet 50 mg, 1, tablet, By Mouth, Daily, # 30 tablet, Refills 3, Tot. Refills 3, Maintenance, 05/08/23 10:35:00 EDT, Route to Pharmacy Electronically, [facility]/pharmacy #[id number], Partial fill upon patient request if the prescription is for a schedule II opioid drug... Start Date: 05/08/23 Status: Ordered meclizine 25 mg oral tablet 1 tablet, By Mouth, 2 times a day, PRN NEEDED FOR DIZZINESS, Take as needed for dizziness, # 60 tablet, 2 Refills, Maintenance, 12/05/22 16:13:00 EST, [facility]/pharmacy #[id number], 165.1, cm, 12/05/22 15:21:00 EST, Height [...] tablet, 11 Refills, Maintenance, 07/31/22 16:07:00 EDT, [facility]/pharmacy #[id number], 165.1, cm, 07/12/22 17:15:00 EDT, Height Start Date: 07/31/22 Status: Ordered NuLYTELY with Flavor Packs oral powder for reconstitution 240 mL, By Mouth, Every 10 minutes, May substitute any PEG 3350 solution available SPLIT PREP METHOD, # 1 each, 0 Refills, Maintenance, 01/14/23 17:00:00 EDT, REC Powder, [facility]/pharmacy #[id number], test date 01/15/23, 240 mL By [...] 5 Refills, Maintenance, 11/22/22 14:08:00 EST, Capsule, [facility]/pharmacy #[id number], Partial fill upon patient request if the prescription is for a schedule II opioid drug., 165.1, cm, 11/22/22 13:38:0... Start Date: 11/22/22 Status: Ordered riboflavin 400 mg oral capsule 1 capsule = 400 mg, By Mouth, Daily, # 100 capsule, 2 Refills, Maintenance, 05/12/23 20:23:00 EDT, Capsule, [facility]/pharmacy #[id number], 165, cm, 05/08/23 10:12:00 [...] 05/12/24 20:19:00 EDT, 05/12/23 20:19:00 EDT, Tablet, [facility]/pharmacy #[id number], Partial fill upon patient request... Start [...] x per day BRand name covered by [facility], # 1 each, Refills 6, Tot. Refills 6, Maintenance, 09/29/21 9:04:00 EST, Instructions Replace Required Details Aerosol, Route to Pharmacy Electronically, [id number]... Start Date: 09/29/21 Status: Ordered Ventolin 90 mcg Inhaler 2, puffs, Inhalation, 4 times a day, PRN, Refills 0, Maintenance, 11/26/18 9:56:44 EST Start Date: 11/26/18 Status: Ordered Vitamin B12 500 mcg oral tablet 1 tablet = 500 mcg, By Mouth, Daily, # 90 tablet, 1 Refills, Maintenance, 05/12/23 20:24:00 EDT, Tablet, [facility]/pharmacy #[id number], Partial fill upon patient [...] Refills, Maintenance, 09/20/21 15:14:00 EST, Chew Tablet, [facility]/pharmacy #[id number], Partial fill upon patient [...] Team Personnel Name: Broderick Kidd MD Position: [facility] Resident Member Role: PCP Address: Address: [address] [place] [address]- Care Team Related Persons Name: MARIO GERARD Address: home [address] [place] [address] Name: CARI GARCÍA Address: home [address] [place] [id number] Name: NOELLE MAY
--- OUTSIDE RECORDS SUMMARY | 2024-09-07 13:56 | XMS_ITS | Continuity of Care Document ---
Author Organization [facility] Address [address] [place] [address]- Care Team Providers Care Wick And Base Assembler Name Role Phone Broderick Kidd MD Primary Care Physician [phone] [facility]): [facility]/24 - 02/29/24 [facility] [address] [place] [phone] Allergies, Adverse Reactions, Alerts No Known Allergies [...] 04/25/23 Given tetanus/diphtheria/pertussis, acel(Tdap) 3 01/28/13 Given [id number] bivalent booster vax 01/03/23 Recorded SARS-CoV-2 (COVID-19) [...] 07/05/08 Recor ded 1Result Comment: received at [facility] on [facility] in [place] 2Admin Note: flulaval vis given vis date 05/05/2012 3Admin Note: VIS GIVEN VIS DATE 11/27/2011 4Result Comment: received 2nd dose at [facility] 5Result Comment: received at [facility] Medications acetaminophen 500 mg oral tablet 2 tablet, By Mouth, Every 8 hours, PRN NEEDED FOR PAIN, # 100 tablet, 3 Refills, Maintenance, 10/11/23 11:48:00 EST, [facility]/pharmacy #[id number], 165, cm, 09/27/23 10:21:00 EST, Height, 100, kg, 04/04/23 16:15:00 EDT, Dry Weight Start Date: 10/11/23 Status: Ordered Eoiny-Miygmy-Opdo 300 mg oral capsule 1 capsule, By Mouth, 2 times a day, # 60 capsule, 5 Refills, Maintenance, 05/12/23 20:20:00 EDT, [facility]/pharmacy #[id number], 165, cm, 05/08/23 10:12:00 EDT, Height, 100, kg, 04/04/23 16:15:00 EDT, Dry Weight Start Date: 05/12/23 Status: Ordered amitriptyline 10 mg oral tablet 1, tablet, By Mouth, Daily at bedtime, # 90 tablet, Refills 1, Tot. Refills 1, Maintenance, 12/27/23 16:05:00 EST, Route to Pharmacy Electronically, [facility]/pharmacy #[id number], 165, cm, 10/11/23 14:32:00 EST, Height, 100, kg, 04/04/23 16:15:00 EDT, Dry Weight Start Date: 12/27/23 Status: Ordered ammonium lactate 5% topical lotion 1 application, Topically, 2 times a day, PRN Dry Skin, apply and rub in well, # 120 Gm, 0 Refills, Maintenance, 12/05/22 17:09:00 EST, Lotion, [facility]/pharmacy #[id number], Partial fill upon patient request ifthe [...] 9:13:00 EST, Route to Pharmacy Electronically, [facility]/pharmacy #[id number], Partial fill upon patient request if [...] Gm, 2 Refills, Maintenance, 01/20/24 9:29:00 EDT, [facility], 25, APPLY TOPICALLY 4 TIMES A DAY, NEEDED NEUROPATHIC PAIN, 165, cm, 10/11/23 14:32:00 EST, Height... Start Date: 01/20/24 Status: Ordered famotidine 20 mg oral tablet 1, tablet, By Mouth, 2 times a day, # 180 tablet, Refills 1, Maintenance, 02/24/24 12:56:00 EDT, Route to Pharmacy Electronically, [facility], 165, cm, 02/06/24 9:54:00 EDT, Height, 100, kg, 04/04/23 16:15:00 EDT, Dry Weight Start Date: 02/24/24 Status: Ordered hydrochlorothiazide 25 mg oral tablet 1, tablet, By Mouth, Daily, # 90 tablet, Refills 1, Tot. Refills 1, Maintenance, 12/23/23 17:10:00 EST, Route to Pharmacy Electronically, [facility]/pharmacy #[id number], 165, cm, 10/11/23 14:32:00 EST, Height, [...] Refills, Maintenance, 02/05/23 23:52:00 EDT, [facility], 30, APPLY 1 PATCH TOPICALLY DAILY,X30 DAYS NEEDED FOR PAIN MILD, REMOVE AFTER 12 HOURS, 168,... Start Date: 02/05/23 Status: Ordered loratadine 10 mg oral tablet 1, tablet, By Mouth, 2 times a day, # 60 tablet, Refills 0, Maintenance, 12/31/22 14:48:00 EST, Route to Pharmacy Electronically, [facility], 165.1, cm, 12/05/22 15:21:00 EST, Height Start Date: 12/31/22 Stop Date: 01/30/23 Status: Ordered losartan 50 mg oral tablet 50 mg, 1, tablet, By Mouth, Daily, # 90 tablet, Refills 1, Tot. Refills 1, Maintenance, 10/02/23 13:31:00 EST, Route to Pharmacy Electronically, [facility]/pharmacy #[id number], Partial fill upon patient request if the prescription is for a schedule II opioid drug... Start Date: 10/02/23 Status: Ordered meclizine 25 mg oral tablet 1 tablet, By Mouth, 2 times a day, PRN NEEDED FOR DIZZINESS, # 60 tablet, 0 Refills, Maintenance, 05/30/23 16:12:00 EDT, [facility], 165, cm, 05/22/23 9:22:00 EDT, Height, 100, kg, 04/04/23 16:15:00 EDT, Dry Weight Start Date: 05/30/23 Status: Ordered Myrbetriq 50 mg oral tablet, extended release 1 tablet, By Mouth, Daily, DO NOT CRUSH OR CHEW., # 90 tablet, 1 Refills, Maintenance, 09/19/23 16:25:00 EST, [facility]/pharmacy #[id number], 165, cm, 09/12/23 13:12:00 EST, Height, 100, kg, 04/04/23 16:15:00 EDT, Dry Weight Start Date: 09/19/23 Status: Ordered naratriptan 2.5 mg oral tablet 1 tablet = 2.5 mg, By Mouth, Daily, PRN for migraine headache, may repeat dose once in 4 hours, # 18 tablet, 1 Refills, Acute 07/07/24 15:56:00 EDT, 07/07/23 15:56:00 EDT, Tablet, [facility]/pharmacy #[id number],Partial fill upon patient request if the prescripti... Start Date: 07/07/23 Stop Date: 07/07/24 Status: Ordered ondansetron 8 mg oral tablet 1 tablet, By Mouth, Daily, PRN NEEDED FOR NAUSEA AND VOMITING, # 30 tablet, 0 Refills, Maintenance, 09/23/23 10:53:00 EST, [facility], 165, cm, 09/12/23 13:12:00 EST, Height, 100, [...] capsule, 5 Refills, Maintenance, 02/27/24 6:10:00EDT, Capsule, [facility]/pharmacy #[id number], Partial fill upon patient request if the prescription is for a schedule II opioid drug., 165, cm, 02/06/24 9:54:00 ED... Start Date: 02/27/24 Status: Ordered riboflavin 400 mg oral capsule 1 capsule = 400 mg, By Mouth, Daily, # 100 capsule, 2 Refills, Maintenance, 05/12/23 20:23:00 EDT, Capsule, [facility]/pharmacy #[id number], 165, cm, 05/08/23 10:12:00 EDT, Height, [...] x per day BRand name covered by [facility], # 1 each, Refills 11, Tot. Refills 11, Maintenance, 10/11/23 11:50:00 EST, Instructions Replace Required Details Aerosol, Route toPharmacy Electronically, [id number]... Start Date: 10/11/23 Status: Ordered Ventolin HFA 108 mcg/inh inhalation aerosol with adapter 2 puffs, Inhalation, Every 6 hours, PRN NEEDED FOR WHEEZE OR FOR SHORTNESS OF BREATH, # 18 each,3 Refills, Maintenance, 02/01/24 11:42:00 EDT, [facility], 165, cm, 10/11/23 14:32:00 EST, Height, 100, [...] 1 Refills, Maintenance, 09/11/23 9:07:00 EST, Tablet, [facility]/pharmacy #[id number], Partial fill upon patient request if the prescription is for a schedule II opioid drug., 165, cm, 06/03/23 9:52:00 EDT, Height,... Start Date: 09/11/23 Stop Date: 03/09/24 Status: Ordered Vitamin B12 500 mcg oral tablet 1 tablet = 500 mcg, By Mouth, Daily, # 90 tablet, 1 Refills, Maintenance, 05/12/23 20:24:00 EDT, Tablet, [facility]/pharmacy #[id number], Partial fill upon patient request if [...] Active 1Follows with therapist and psychiatrist at [place] per previous notes 2PFTs show no obstruction. However has h/o asthma. Ct chest in 07/27 and pulm note says restrictive lung disease mild similiar to findings on PFT 3Follows with therapist and psychiatrist at [place] per previous notes 4Sleep study in 2016. [...] Team Personnel Name: Broderick Kidd MD Position: [facility] Resident Member Role: PCP Address: Address: [address] [place] [address] [place] [address]- Care Team Related Persons Name: MARIO GERARD Address: home [address] [place] [address] Name: CARI GARCÍA Address: home [address], [place] [address] Name: NOELLE MAY
--- OUTSIDE RECORDS SUMMARY | 2024-09-07 13:57 | XMS_ITS | Continuity of Care Document ---
Author Organization [facility] Address [address] [place] [address]- Care Team Providers Care Marine Gear Keeper Name Role Phone Broderick Kidd MD Primary Care Physician [phone] [facility]counter [facility] Date(s): 04/30/24 - 05/30/24 [facility] [address] [place] [phone] Allergies, Adverse Reactions, Alerts No Known Allergies [...] 04/25/23 Given tetanus/diphtheria/pertussis, acel(Tdap) 3 01/28/13 Given [id number] bivalent booster vax 01/03/23 Recorded SARS-CoV-2 (COVID-19) [...] 07/05/08 Recor ded 1Result Comment: received at [facility] on [facility] in [place] 2Admin Note: flulaval vis given vis date 05/05/2012 3Admin Note: VIS GIVEN VIS DATE 11/27/2011 4Result Comment: received 2nd dose at [facility] 5Result Comment: received at [facility] Medications acetaminophen 500 mg oral tablet 2 tablet, By Mouth, Every 8 hours, PRN NEEDED FOR PAIN, # 100 tablet, 3 Refills, Maintenance, 10/11/23 11:48:00 EST, [facility]/pharmacy #[id number], 165, cm, 09/27/23 10:21:00 EST, Height, 100, kg, 04/04/23 16:15:00 EDT, Dry Weight Start Date: 10/11/23 Status: Ordered Ajovy Autoinjector 225 mg/1.5 mL subcutaneous solution = 225 mg, Subcutaneous Injection, Every 28 days, # 1 kit, 5 Refills, Maintenance, 03/16/24 12:10:00EDT, [facility], Partial fill upon patient request if the prescription is for a schedule II opioid drug., 165, cm, 03/10/24 10:03:00 E... Start Date: 03/16/24 Status: Ordered amitriptyline 10 mg oral tablet 1, tablet, By Mouth, Daily at bedtime, # 90 tablet, Refills 1, Tot. Refills 1, Maintenance, 12/27/23 16:05:00 EST, Route to Pharmacy Electronically, [facility]/pharmacy #[id number], 165, cm, 10/11/23 14:32:00 EST, Height, 100, kg, 04/04/23 16:15:00 EDT, Dry Weight Start Date: 12/27/23 Status: Ordered ammonium lactate 5% topical lotion 1 application, Topically, 2 times a day, PRN Dry Skin, apply and rub in well, # 120 Gm, 0 Refills, Maintenance, 12/05/22 17:09:00 EST, Lotion, [facility]/pharmacy #[id number], Partial fill upon patient request ifthe prescription is for a schedule II opioid drug.,... Start Date: 12/05/22 Stop Date: 12/19/22 Status: Ordered aspirin 81 mg oral delayed release tablet = 81 mg, By Mouth, Daily, Refill per PCP or Teaching Assistant, # 30 tablet, 2 Refills, Maintenance, 04/29/24 12:54:00 EDT, EC Tablet, [facility], Partial fill upon patient request if the prescription is for a schedule II opioid drug., 173, cm... Start Date: 04/29/24 Status: Ordered atorvastatin 80 mg oral tablet = 80 mg, By Mouth, Daily at bedtime, Refill per PCP or Teaching Assistant, # 90 capsule, 3 Refills, Maintenance, 05/21/24 18:58:00 EDT, Tablet, [facility]/pharmacy #[id number], Partial fill upon patient request [...] 11/23/22 9:13:00 EST, Route to Pharmacy Electronically, [facility]/pharmacy #[id number], Partial fill upon patient request [...] Gm, 2 Refills, Maintenance, 05/14/24 12:20:00 EDT, [facility], 25, APPLY TOPICALLY 4 TIMES A DAY, [...] EDT, Route to Pharmacy Electronically, [facility], 165, cm, 02/06/24 9:54:00 EDT, Height, 100, kg, 04/04/23 16:15:00 EDT, Dry Weight Start Date: 02/24/24 Status: Ordered lidocaine 5% topical film 1 patch, Topically, Daily, PRN NEEDED FOR PAIN MILD, REMOVE AFTER 12 HOURS, # 30 patch, 0 Refills, Maintenance, 02/05/23 23:52:00 EDT, [facility], 30, APPLY 1 PATCH TOPICALLY DAILY,X30 DAYS NEEDED FOR PAIN MILD, REMOVE AFTER 12 HOURS, 168,... Start Date: 02/05/23 Status: Ordered loratadine 10 mg oral tablet 1, tablet, By Mouth, 2 times a day, # 60 tablet, Refills 0, Maintenance, 12/31/22 14:48:00 EST, Route to Pharmacy Electronically, [facility], 165.1, cm, 12/05/22 15:21:00 EST, Height Start Date: 12/31/22 Stop Date: 01/30/23 Status: Ordered losartan 50 mg oral tablet 1 tablet, By Mouth, Daily, # 90 tablet, 1 Refills, Maintenance, 03/10/24 12:55:00 EDT, [facility], 165, cm, 03/10/24 10:03:00 EDT, Height, 100, [...] By Mouth, Daily, Refill per PCP or Teaching Assistant, # 90 tablet, Refills 3, Tot.Refills 3, Maintenance, 05/21/24 18:58:00 EDT, Route to Pharmacy Electronically, [facility]/pharmacy #[id number], Partial fill upon patient request [...] tablet, 1 Refills, Maintenance, 05/11/24 23:04:00 EDT, [facility], 173, cm, 04/29/24 7:26:00 EDT, Height, 101.4, kg, 04/27/24 14:38:00 EDT, Dry W... Start Date: 05/11/24 Status: Ordered nicotine 21 mg/24 hr transdermal film, extended release 1 patch, Topically, Daily, for 30 days, # 30 patch, 1 Refills, Acute 07/13/24 14:37:00 EDT, 05/14/24 14:37:00 EDT, Patch, [facility], Partial fill upon patient request if the prescription is for a schedule II opioid drug., 1 patch Topi... Start Date: 05/14/24 Stop Date: 07/13/24 Status: Ordered nicotine 4 mg oral transmucosal gum See Instructions, Weeks 1 to 6: Chew 1 piece of gum every 1 to 2 hours (maximum: 24 pieces/day); toincrease chances of quitting, chew at least 9 pieces/day during the first 6 weeks. Weeks 7 to 9: Chew 1 piece of gum every 2 to 4 hours (maximum: 24... Start Date: 05/14/24 Stop Date: 06/14/24 Status: Ordered ondansetron 8 mg oral tablet 1 tablet, By Mouth, Daily, PRN NEEDED FOR NAUSEA AND VOMITING, # 30 tablet, 0 Refills, Maintenance, 09/23/23 10:53:00 EST, [facility], 165, cm, 09/12/23 13:12:00 EST, Height, 100, kg, 04/04/23 16:15:00 EDT, Dry Weight Start Date: 09/23/23 Status: Ordered pantoprazole 20 mg oral delayed release tablet = 20 mg, By Mouth, Daily, Take for next 12 months while taking aspirin and Brillinta. Refill per PCP or Teaching Assistant., # 90 tablet, 3 Refills, Maintenance, 05/21/24 [...] capsule, 5 Refills, Maintenance, 02/27/24 6:10:00EDT, Capsule, [facility]/pharmacy #[id number], Partial fill upon patient request if the [...] Replace Required Details Aerosol, Route toPharmacy Electronically, [id number]... Start Date: 10/11/23 Status: Ordered ticagrelor 90 mg oral tablet 1 tablet = 90 mg, By Mouth, 2 times a day, Refill per PCP or Teaching Assistant, # 60 tablet, 2 Refills, Maintenance, 04/29/24 12:57:00 EDT, Tablet, [facility] 3, Partial fill upon patient request if the prescription is for a schedule II opioid... Start Date: 04/29/24 Status: Ordered Ventolin HFA 108 mcg/inh inhalation aerosol with adapter 2 puffs, Inhalation, Every 6 hours, PRN NEEDED FOR WHEEZE OR FOR SHORTNESS OF BREATH, # 18 each,5 Refills, Maintenance, 05/12/24 11:06:00 EDT, [facility], 173, cm, 04/29/24 7:26:00 EDT, Height, 101.4, [...] Active 1Follows with therapist and psychiatrist at [place] per previous notes 2PFTs show no obstruction. However has h/o asthma. Ct chest in 07/27 and pulm note says restrictive lung disease mild similiar to findings on PFT 3Follows with therapist and psychiatrist at [place] per previous notes 4Sleep study in 2016. [...] Care Nurse Name: Broderick Kidd MD Position: [facility] Resident Member Role: PCP Address: Address: [address] [place] [address]- Care Team Related Persons Name: MARIO GERARD Address: home [address] [place] [address] Name: CARI GARCÍA Address: home [address], [place] [address] Name: NOELLE MAY
--- OUTSIDE RECORDS SUMMARY | 2024-09-07 13:57 | XMS_ITS | Continuity of Care Document ---
Author Organization [facility] Address [address], [address] [place] [address]- Care Team Providers Care Senior Sales Engineer Name Role Phone Giana MEHTA, Ashley Primary Care Physician [phone] Encounter [facility] Date(s): 07/29/20 - 08/28/20 [facility] Brad KemR[facility] [address] [place] [address]- [facility] Allergies, Adverse Reactions, Alerts No Known Medication [...] Inhalation, 2 times a day, Prescribed by Crane Service Technician., # 1 each, Refills 11, Tot. Refills 11, Maintenance, 03/13/18 11:00:50 EDT, Inhaler, Route to Pharmacy Electronically, [id number], [facility]/pharmacy #[id number] Start Date: 03/13/18 Status: Ordered albuterol 0.083% inhalation solution 3 mL = 2.5 mg, Neb, Every 6 hours, PRN Wheezing/Shortness of Breath, # 360 mL, 2 Refills, Maintenance, 12/04/19 15:27:00 EST, [facility]/pharmacy #[id number], 165.1, cm, 12/04/19 14:54:00 EST, Height, 86.4, kg, 08/10/19 14:42:00 EDT, Dry Weight Start Date: 12/04/19 Status: Ordered Lety Allergy 60 mg oral tablet 3 tablet = 180 mg, By Mouth, Daily, Prescribed by Physics Technical Officer in [place]., # 90 tablet, 0 Refills, Maintenance, 02/16/16 14:46:50, Tablet Start Date: 02/16/16 Stop Date: 03/17/16 Status: Ordered Alpha Lipoic 300 mg oral tablet 1 tablet = 300 mg, By Mouth, 2 times a day, # 60 tablet, 3 Refills, Maintenance, 06/09/20 11:40:00 EDT, Tablet, [facility]/pharmacy #[id number], 165.1, cm, 05/10/20 10:01:00 EDT, Height, 86.4, kg, 08/10/19 14:42:00 EDT, Dry Weight Start Date: 06/09/20 Status: Ordered amitriptyline 10 mg oral tablet 10 mg, 1, tablet, By Mouth, Daily at bedtime, # 30 tablet, Refills 5, Tot. Refills 5, Maintenance, 08/02/20 12:33:00 EDT, Route to Pharmacy Electronically, [facility]/pharmacy #[id number], 165.1, cm, 05/10/20 10:01:00 EDT, Height, 86.4, [...] 02/02/20 11:42:00 EDT, Route to Pharmacy Electronically, [facility]/pharmacy #[id number], 165.1, cm, 01/07/20 14:51:00 [...] tablet, 1 Refills, Maintenance, 06/09/20 11:40:00 EDT, [facility]/pharmacy #[id number], 165.1, cm, 05/10/20 10:01:00 [...] Refills, Maintenance, 08/02/20 12:33:00 EDT, ER Tablet, [facility]/pharmacy #[id number], 165.1, cm, 05/10/20 10:01:00 [...] BY MOUTH DAILY,INSTR:DO NOT CRUSH OR CHEW, [facility]/pharmacy #[id number] Start Date: 07/07/19 Status: Ordered Nebulizer/Compressor See Instructions, # 1 each, Refills 0, Tot. Refills 0, Maintenance, for PRN albuterol inhaled, 11/21/17 16:27:13, Compound Start Date: 11/21/17 Status: Ordered omeprazole 20 mg oral enteric coated capsule 1 capsule = 20 mg, By Mouth, Daily, # 30 capsule, 2 Refills, Maintenance, 04/14/20 7:47:00 EDT, [facility]/pharmacy #[id number], 165.1, cm, 01/07/20 14:51:00 [...] tablet, 2 Refills, Maintenance, 01/07/20 15:12:00 EST, [facility]/pharmacy #[id number], 165.1, cm, 01/07/20 14:51:00 [...] apnea (AIRAM ), on CPAP(Confirmed) Active *BHN/BHCP/Leodan GoodmanOsgaixy-[phone]/Health longterm, active care coordination(Confirmed) Active Sjogren's syndrome(Confirmed) Active Smoker, 5-10 cigarettes per day since age 16. Quit once for 2.5 years(Confirmed) Active Systemic lupus(Confirmed) Active Chronic urticaria(Confirmed) Active Vertigo(Confirmed) Active Social History Social History Type Response Tobacco Started at age: 13 Y ears. Sex Female
--- OUTSIDE RECORDS SUMMARY | 2024-09-07 13:57 | XMS_ITS | Continuity of Care Document ---
Author Organization [facility] Address [address] [place] [address]- Care Team Providers Care Filter Tender Name Role Phone Ashley Faria MD Primary Care Physician [phone] [facility]counter [facility]): 07/17/21 - 08/16/21 [facility] [address] [place] [address]- Allergies, Adverse Reactions, Alerts No Known Medication [...] Given 1Result Comment: received 2nd dose at [facility] 2Result Comment: received at [facility] 3Result Comment: received at [facility] on [facility] in [place] 4Admin Note: flulaval vis given vis date 05/05/2012 5Admin Note: VIS GIVEN VIS DATE 11/27/2011 Medications acetaminophen 500 mg oral tablet 2 tablet = 1,000 mg, By Mouth, Every 8 hours, PRN as needed for pain, # 100 tablet, 3 Refills, Maintenance, 02/13/21 13:30:00 EDT, [facility]/pharmacy #[id number], 165.1, cm, 02/13/21 12:53:00 EDT, Height, 86, kg, 05/18/19 10:08:00 EDT, Dry Weight Start Date: 02/13/21 Status: Ordered albuterol 0.083% inhalation solution 3 mL = 2.5 mg, Neb, Every 6 hours, PRN Wheezing/Shortness of Breath, # 360 mL, 2 Refills, Maintenance, 12/04/19 15:27:00 EST, [facility]/pharmacy #[id number], 165.1, cm, 12/04/19 14:54:00 EST, Height, 86.4, kg, 08/10/19 14:42:00 EDT, Dry Weight Start Date: 12/04/19 Status: Ordered albuterol CFC free 90 mcg/inh inhalation aerosol 1, puffs, Inhalation, 4 times a day, PRN, # 8 Gm, Refills 11, Tot. Refills 11, Maintenance, 07/21/21 17:07:00 EDT, Aerosol, Route to Pharmacy Electronically, [id number], [facility]/pharmacy #1, 165.1, cm, 03/22/21 14:17:00 EDT, H... Start Date: 07/21/21 Status: Ordered Lety Allergy 60 mg oral tablet 3 tablet = 180 mg, By Mouth, Daily, Prescribed by Wound Care Physician in [place]., # 90 tablet, 0 Refills, Maintenance, 02/16/16 14:46:50, Tablet Start Date: 02/16/16 Stop Date: 03/17/16 Status: Ordered Ggptv-Zonomm-Ohlk 300 mg oral capsule 1 capsule, By Mouth, 2 times a day, OTC N/C., # 60 capsule, 5 Refills, Maintenance, 12/08/20 8:20:00 EST, [facility] STORE 29974, 165.1, cm, 05/10/20 10:01:00 EDT, Height, 86.4, kg, 08/10/19 14:42:00 EDT, Dry Weight Start Date: 12/08/20 Status: Ordered amitriptyline 10 mg oral tablet 1, tablet, By Mouth, Daily at bedtime, # 90 tablet, Refills 3, Tot. Refills 3, Maintenance, 08/14/21 15:13:00 EDT, Route to Pharmacy Electronically, [facility]/pharmacy #207, 165.1, cm, 08/14/21 14:44:00 EDT, Height [...] 02/02/20 11:42:00 EDT, Route to Pharmacy Electronically, [facility]/pharmacy #207, 165.1, cm, 01/07/20 14:51:00 EST, Height, [...] Refills, Maintenance, 08/14/21 15:27:00 EDT, Chew Tablet, [facility]/pharmacy #[id number], Partial fill upon patient [...] Unknown, 0 Refills, Maintenance, 04/16/21 19:52:00 EDT, [facility] STORE 63031, 30, INHALE 1 PUFF BY MOUTH TWICE [...] day, PRN for dizziness, # 30 tablet, 2 Refills, Maintenance, 02/13/21 13:36:00 EDT, Tablet, [facility]/pharmacy #[id number], 165.1, cm, 02/13/21 12:53:00 EDT, Height, 86, kg,05/18/19 10:08:00 EDT, Dry Weight Start Date: 02/13/21 Status: Ordered MiraLax oral powder for reconstitution [...] Refills, Maintenance, 02/01/21 16:14:00 EDT, [facility], 165.1, cm, 12/08/20 15:27:00 EST, Height, 86.4, kg, 08/10/19 14:42:00 EDT, Dry Weight Start Date: 02/01/21 Status: Ordered Nebulizer/Compressor See Instructions, # 1 each, Refills 0, Tot. Refills 0, Maintenance, for PRN albuterol inhaled, 11/21/17 16:27:13, Compound Start Date: 11/21/17 Status: Ordered omeprazole 20 mg oral enteric coated capsule 1 capsule = 20 mg, By Mouth, Daily, # 30 capsule, 2 Refills, Maintenance, 02/13/21 13:30:00 EDT, [id number], 165.1, cm, 02/13/21 12:53:00 EDT, Height, 86, kg, 05/18/19 10:08:00 EDT, Dry Weight Start Date: 02/13/21 Status: Ordered Plaquenil 200 mg oral tablet [...] 2 Refills, Maintenance, 09/12/20 18:13:00 EST, Capsule, [facility]/pharmacy #[id number], 165.1, cm, 05/10/20 10:01:00 [...] > 4/WEEK., # 9 tablet, 1 Refills, Soft Stop, [facility] STORE 52174, 165.1, cm, 02/13/21 12:53:00 EDT, Height, 86.4, kg, 08/10/19 14:42:00 EDT, Dry Weight Start Date: 03/20/21 Status: Ordered Symbicort 80mcg/4.5mcg Inhaler See Instructions, PRN, As needed, # 1 each, Refills 6, Tot. Refills 6, Maintenance, 08/14/21 15:31:00 EDT, Instructions Replace Required Details Aerosol, Route to Pharmacy Electronically, [id number], [facility]/pharmacy #[id number], 165.1... Start Date: 08/14/21 Status: Ordered [...] Refills, Maintenance, 08/14/21 15:27:00 EDT, Chew Tablet, [facility]/pharmacy #[id number], Partial fill upon patient [...] apnea (AIRAM ), on CPAP(Confirmed) Active *BHN/BHCP/Leodan Rich-[phone]/Health intermediate, active care coordination(Confirmed) Active Sjogren's syndrome(Confirmed) Active Smoker, 5-10 cigarettes per day since age 16. Quit once for 2.5 years(Confirmed) Active Systemic lupus(Confirmed) Active Chronic urticaria(Confirmed) Active Vertigo(Confirmed) Active Social History Social History Type Response Tobacco Started at age: 13 Y ears. Sex Female
--- OUTSIDE RECORDS SUMMARY | 2024-09-07 13:57 | XMS_ITS | Continuity of Care Document ---
Author Organization [facility] Address [address] [place] [address]- Care Team Providers Care Soft Shoe Dancer Name Role Phone Broderikc Kidd MD Primary Care Physician [facility]): 07/22/24 - 08/21/24 [facility] [address] [place], [place] [phone] Allergies, Adverse Reactions, Alerts No Known Allergies Immunizations Given and Recorded Vaccine Date Status Refusal Reason influenza virus vaccine, inactivated 07/09/24 Zachery rded influenza virus vaccine, inactivated 09/27/23 Give n [...] influenza virus vaccine, inactivated 09/04/11 Zachery rded pneumococcal 20-valent conjugate vaccine 10/11/23 Given tetanus/diphtheria/pertussis, acel(Tdap) 04/25/23 Given tetanus/diphtheria/pertussis, acel(Tdap) 3 01/28/13 Given [id number] bivalent booster vax 01/03/23 Recorded SARS-CoV-2 (COVID-19) [...] 1Result Comment: received at [facility] on [facility] in [place] 2Admin Note: flulaval vis given vis date 05/05/2012 3Admin Note: VIS GIVEN VIS DATE 11/27/2011 4Result Comment: received 2nd dose at [facility] 5Result Comment: received at [facility] Medications acetaminophen 500 mg oral [...] days, # 1 kit, 5 Refills, Maintenance, 08/10/24 9:30:00 EDT, [facility], Partial fill upon patient request if the prescription is for a schedule II opioid drug., 173, cm, 07/29/24 15:21:00 ED... Start Date: 08/10/24 Status: Ordered amitriptyline 10 mg oral tablet 10 mg, 1, tablet, By Mouth, Daily at bedtime, # 90 tablet, Refills 3, Tot. Refills 3, Maintenance, 07/24/24 17:29:00 EDT, Route to Pharmacy Electronically, [facility]/pharmacy #[id number], Partial fill upon patient request if the prescription is for a schedule II... Start Date: 07/24/24 Status: Ordered amitriptyline 10 mg oral tablet 1, tablet, By Mouth, Daily at bedtime, # 90 tablet, Refills 0, Maintenance, 06/10/24 15:49:00 EDT, Route to Pharmacy Electronically, [facility] STORE 87738, 173, cm, 06/08/24 14:38:00 EDT, Height, 101.4, [...] By Mouth, Daily, Refill per PCP or Maintenance Data Analyst, # 30 tablet, 2 Refills, Maintenance, 07/23/24 13:37:00 EDT, EC Tablet, [facility]/pharmacy #[id number], Partial fill upon patient request if the prescription is for a schedule II opioid drug., 173, cm, 0... Start Date: 07/23/24 Status: Ordered atorvastatin 80 mg oral tablet = 80 mg, By Mouth, Daily at bedtime, Refill per PCP or Maintenance Data Analyst, # 90 capsule, 3 Refills, Maintenance, 05/21/24 18:58:00 EDT, Tablet, [facility]/pharmacy #[id number], Partial fill upon [...] 12:11:42 EST Start Date: 10/15/18 Status: Ordered [facility] VITAMIN B-12 500 MCG TAB [facility] [...] EST, Route to Pharmacy Electronically, [facility]/pharmacy #[id number], Partial fill upon patient request if the [...] Gm, 2 Refills, Maintenance, 05/14/24 12:20:00 EDT, [facility] STORE 50163, 25, APPLY TOPICALLY 4 TIMES A DAY, [...] EDT, Route to Pharmacy Electronically, [facility], 165, cm, 02/06/24 9:54:00 EDT, Height, 100, kg, 04/04/23 16:15:00 EDT, Dry Weight Start Date: 02/24/24 Status: Ordered lidocaine 5% topical film 1 patch, Topically, Daily, PRN NEEDED FOR PAIN MILD, REMOVE AFTER 12 HOURS, # 30 patch, 0 Refills, Maintenance, 02/05/23 23:52:00 EDT, [facility] 41953, 30, APPLY 1 PATCH TOPICALLY DAILY,X30 DAYS NEEDED FOR PAIN MILD, REMOVE AFTER 12 HOURS, 168,... Start Date: 02/05/23 Status: Ordered loratadine 10 mg oral tablet 1, tablet, By Mouth, 2 times a day, # 60 tablet, Refills 0, Maintenance, 12/31/22 14:48:00 EST, Route to Pharmacy Electronically, [facility] 87063, 165.1, cm, 12/05/22 15:21:00 EST, Height Start Date: 12/31/22 Stop Date: 01/30/23 Status: Ordered losartan 50 mg oral tablet 1 tablet, By Mouth, Daily, # 90 tablet, 1 Refills, Maintenance, 03/10/24 12:55:00 EDT, [facility] ST[facility] 19062, 165, cm, 03/10/24 10:03:00 EDT, Height, 100, kg, 04/04/23 16:15:00 EDT, Dry Weight Start Date: 03/10/24 Status: Ordered meclizine 25 mg oral tablet 1 tablet, By Mouth, 2 times a day, PRN NEEDED FOR DIZZINESS, # 60 tablet, 1 Refills, Maintenance, 08/20/24 19:05:00 EDT, [facility] ST[facility] 65105, 173, cm, 08/19/24 12:16:00 EDT, Height, 101.4, kg, 04/27/24 14:38:00 EDT, Dry Weight Start Date: 08/20/24 Status: Ordered Myrbetriq 50 mg oral tablet, extended release 1 tablet, By Mouth, Daily, DO NOT CRUSH OR CHEW., # 30 tablet, 2 Refills, Maintenance, 06/23/24 10:38:00 EDT, [facility] ST[facility] 82043, 173, cm, 06/08/24 14:38:00 EDT, Height, 101.4, kg, 04/27/24 14:38:00 EDT, Dry Weight Start Date: 06/23/24 Status: Ordered naratriptan 2.5 mg oral tablet 1 tablet, By Mouth, Daily, PRN NEEDED FOR MIGRAINE, MAY REPEAT DOSE AFTER 4 HOURS IF NEEDED, # 18 tablet, 2 Refills, Maintenance, 07/22/24 12:44:00 EDT, [facility], 173, cm, 06/08/24 14:38:00EDT, Height, 101.4, kg, 04/27/24 14:38:00 EDT, Dry... Start Date: 07/22/24 Status: Ordered nicotine 21 mg/24 hr transdermal film, extended release 2 patch, Topically, Daily, for 30 days, Use for at least 3-6 months. Use two patches for total of 42 mg per day., # 60 patch, 5 Refills, Acute 02/06/25 11:26:00 EDT, 08/10/24 11:26:00 EDT, Patch, [facility]/pharmacy #[id number], Partial fill upon patient request... Start Date: 08/10/24 Stop Date: 02/06/25 Status: Ordered nicotine 4 mg oral transmucosal lozenge 1 lozenge = 4 mg, By Mouth, Every 2 hours, for 30 days, use in addition to patches, as needed, use for at least 1-3 months, and as often as needed, # 144 lozenge, 3 Refills, Acute 12/08/24 11:26:00 EST, 08/10/24 11:26:00 EDT, [facility]/pharmacy #[id number], Parti... Start Date: 08/10/24 Stop Date: 12/08/24 Status: Ordered nitroglycerin 0.4 mg sublingual tablet 1 tablet = 0.4 mg, Sublingual, Every 5 minutes, not to exceed 3 doses/15 min--if pain persists, seek medical attention, 0 Refills, Maintenance, 08/17/24 11:39:00 EDT, Partial fill upon patient request if the prescription is for a schedule II opioid drug. Start Date: 08/17/24 Status: Ordered ondansetron 8 mg oral tablet 1 tablet, By Mouth, Daily, PRN NEEDED FOR NAUSEA AND VOMITING, # 30 tablet, 0 Refills, Maintenance, 09/23/23 10:53:00 EST, [facility] STORE 78183, 165, cm, 09/12/23 13:12:00 EST, Height, 100, kg, 04/04/23 16:15:00 EDT, Dry Weight Start Date: 09/23/23 Status: Ordered pantoprazole 20 mg oral delayed release tablet = 20 mg, By Mouth, Daily, Take for next 12 months while taking aspirin and Brillinta. Refill per PCP or Maintenance Data Analyst., # 90 tablet, 3 Refills, Maintenance, 05/21/24 [...] 2 times a day, # 60 capsule, 0 Refills, Maintenance, 08/17/24 11:47:00 EDT, [facility]/pharmacy #[id number], dose reduced to 150mg bid 08/17/24., 173, cm, 08/17/24 11:16:00 EDT, Height, 101.4, kg, 04/27/24 14:38:00 EDT, Dry Weight Start Date: 08/17/24 Status: Ordered pregabalin 200 mg oral capsule 1 capsule = 200 mg, By Mouth, 2 times a day, # 60 capsule, 5 Refills, Maintenance, 02/27/24 6:10:00EDT, Capsule, [facility]/pharmacy #[id number], Partial fill upon [...] Replace Required Details Aerosol, Route toPharmacy Electronically, [id number]... Start Date: 10/11/23 Status: Ordered ticagrelor 90 mg oral tablet 1 tablet = 90 mg, By Mouth, 2 times a day, Refill per PCP or Maintenance Data Analyst, # 60 tablet, 2 Refills, Maintenance, 07/23/24 13:37:00 EDT, Tablet, [facility]/pharmacy #[id number], Partial fill upon patient request ifthe prescription is for a schedule II opioid drug.,... Start Date: 07/23/24 Status: Ordered Ventolin HFA 108 mcg/inh inhalation aerosol with adapter 2 puffs, Inhalation, Every 6 hours, PRN NEEDED FOR WHEEZE OR FOR SHORTNESS OF BREATH, # 18 each,5 Refills, Maintenance, 05/12/24 11:06:00 EDT, [facility], 173, cm, 04/29/24 7:26:00 EDT, Height, 101.4, kg, 04/27/24 14:38:00 EDT, Dry Weight Start Date: 05/12/24 Status: Ordered Vitamin C By Mouth, Daily, 0 Refills, Maintenance, 01/07/19 11:24:12 EST Start Date: 01/07/19 Status: Ordered Wegovy (0.25 mg dose) subcutaneous solution = 0.25 mg, Subcutaneous Infusion, Every week, # 4 each, 0 Refills, Maintenance, 08/17/24 11:32:00 EDT, [facility]/pharmacy #[id number], Partial fill upon patient request if the prescription is for a schedule II opioid drug., 173, cm, 08/17/24 11:16:00 EDT, Height,... Start Date: 08/17/24 Stop Date: 09/14/24 Status: Ordered Problem List Condition Confirmation Course [...] apnea (AIRAM), on CPAP 4 Confirmed Active Severe obesity (BMI 35.0-39.9) with comorbidity Confirmed Active Sjogren's syndrome Confirmed Active Smoker, 5-10 cigarettes per day since age 16. Quit once for 2.5 years Confirmed Active Subclinical hypothyroidism 5 Confirmed Active Systemic lupus 6 Confirmed Active Chronic urticaria Confirmed Active Vertigo Confirmed Active 1Follows with therapist and psychiatrist at [place] per previous notes 2PFTs show no obstruction. However has h/o asthma. Ct chest in 07/27 and pulm note says restrictive lung disease mild similiar to findings on PFT 3Follows with therapist and psychiatrist at [place] per previous notes 4Sleep study in 2015. Recommended CPAP 5Lab 06/03/23 - TSH 5.88, Free T4: 1.13 6Diagnosed in 2007. Followed by [facility]. On Hydroxychloroquin and cyclobenzarpine for spasms Social History Social History Type Response Smoking Status 5-9 cigarettes (betw een 1/4 to 1/2 pack)/day in last 30 days entered on: 04/04/23 Sex Patient Care team information Care Team Personnel Name: Terrence Pa RN Position: S RN Member Role: Primary Care Nurse Name: Broderick Kidd MD Position: [facility] Resident Member Role: PCP Address: Address: [address] [place] [address] [place] [address]- Care Team Related Persons Name: MARIO GERARD Address: home [address] [place] [address] Name: CARI GARCÍA Address: home [address] [address] Name: NOELLE MAY
--- OUTSIDE RECORDS SUMMARY | 2024-09-07 13:57 | XMS_ITS | Continuity of Care Document ---
Author Organization [facility] Address [address] [place] [address]- Care Team Providers Care Lead Software Tester Name Role Phone Broderick Kidd MD Primary Care Physician [facility]23 - 01/22/24 [facility] [address] [place] [address] Allergies, Adverse Reactions, Alerts No Known [...] 04/25/23 Given tetanus/diphtheria/pertussis, acel(Tdap) 3 01/28/13 Given [id number] bivalent booster vax 01/03/23 Recorded SARS-CoV-2 (COVID-19) [...] 07/05/08 Recor ded 1Result Comment: received at [facility] on [facility] in [place] 2Admin Note: flulaval vis given vis date 05/05/2012 3Admin Note: VIS GIVEN VIS DATE 11/27/2011 4Result Comment: received 2nd dose at [facility] 5Result Comment: received at [facility] Medications acetaminophen 500 mg oral tablet 2 tablet, By Mouth, Every 8 hours, PRN NEEDED FOR PAIN, # 100 tablet, 3 Refills, Maintenance, 10/11/23 11:48:00 EST, [facility]/pharmacy #[id number], 165, cm, 09/27/23 10:21:00 EST, Height, 100, kg, 04/04/23 16:15:00 EDT, Dry Weight Start Date: 10/11/23 Status: Ordered albuterol 0.083% inhalation solution 1 vials, Inhalation, Every 6 hours, PRN NEEDED FOR WHEEZING/SHORTNESS OF BREATH, # 300 mL, 2 Refills, Maintenance, 10/19/22 10:14:00 EST, [facility] STORE 95543, 165.1, cm, 09/18/22 9:21:00 EST, Height Start Date: 10/19/22 Status: Ordered albuterol CFC free 90 mcg/inh inhalation aerosol 2, puffs, Inhalation, Every 6 hours, PRN, # 1 each, Refills 3, Tot. Refills 3, Maintenance, 10/11/23 11:53:00 EST, Route to Pharmacy Electronically, [id number], [facility]/pharmacy#[id number], 165, cm, 09/27/23 10:21:00 EST, Height, 100,... Start Date: 10/11/23 Status: Ordered Foopp-Utbope-Qjcs 300 mg oral capsule 1 capsule, By Mouth, 2 times a day, # 60 capsule, 5 Refills, Maintenance, 05/12/23 20:20:00 EDT, [facility]/pharmacy #[id number], 165, cm, 05/08/23 10:12:00 EDT, Height, 100, kg, 04/04/23 16:15:00 EDT, Dry Weight Start Date: 05/12/23 Status: Ordered amitriptyline 10 mg oral tablet 1, tablet, By Mouth, Daily at bedtime, # 90 tablet, Refills 1, Tot. Refills 1, Maintenance, 12/27/23 16:05:00 EST, [id number] 165, cm, 10/11/23 14:32:00 EST, Height, 100, kg, 04/04/23 16:15:00 EDT, Dry Weight Start Date: 12/27/23 Status: Ordered ammonium lactate 5% topical lotion 1 application, Topically, 2 times a day, PRN Dry Skin, apply and rub in well, # 120 Gm, 0 Refills, Maintenance, 12/05/22 17:09:00 EST, Lotion, [facility]/pharmacy #[id number], Partial fill upon patient [...] 11/23/22 9:13:00 EST, Route to Pharmacy Electronically, [facility]/pharmacy #[id number], Partial fill upon patient [...] Gm, 2 Refills, Maintenance, 01/20/24 9:29:00 EDT, [facility] STORE 44534, 25, APPLY TOPICALLY 4 TIMES A DAY, NEEDED NEUROPATHIC PAIN, 165, cm, 10/11/23 14:32:00 EST, Height... Start Date: 01/20/24 Status: Ordered famotidine 20 mg oral tablet 1, tablet, By Mouth, 2 times a day, # 180 tablet, Refills 1, Tot. Refills 1, Maintenance, 09/03/23 15:24:00 EDT, Route to Pharmacy Electronically, [facility]/pharmacy #[id number], 165, cm, 06/03/23 9:52:00 EDT, Height, 100, kg, 04/04/23 16:15:00 EDT, Dry Weight Start Date: 09/03/23 Status: Ordered hydrochlorothiazide 25 mg oral tablet 1, tablet, By Mouth, Daily, # 90 tablet, Refills 1, Tot. Refills 1, Maintenance, 12/23/23 17:10:00 EST, Route to Pharmacy Electronically, [facility]/pharmacy #[id number], 165, cm, 10/11/23 14:32:00 EST, [...] Refills, Maintenance, 02/05/23 23:52:00 EDT, [facility], 30, APPLY 1 PATCH TOPICALLY DAILY,X30 DAYS NEEDED FOR PAIN MILD, REMOVE AFTER 12 HOURS, 168,... Start Date: 02/05/23 Status: Ordered loratadine 10 mg oral tablet 1, tablet, By Mouth, 2 times a day, # 60 tablet, Refills 0, Maintenance, 12/31/22 14:48:00 EST, Route to Pharmacy Electronically, [facility], 165.1, cm, 12/05/22 15:21:00 EST, Height Start Date: 12/31/22 Stop Date: 01/30/23 Status: Ordered losartan 50 mg oral tablet 50 mg, 1, tablet, By Mouth, Daily, # 90 tablet, Refills 1, Tot. Refills 1, Maintenance, 10/02/23 13:31:00 EST, Route to Pharmacy Electronically, [facility]/pharmacy #[id number], Partial fill upon patient request if the prescription is for a schedule II opioid drug... Start Date: 10/02/23 Status: Ordered meclizine 25 mg oral tablet 1 tablet, By Mouth, 2 times a day, PRN NEEDED FOR DIZZINESS, # 60 tablet, 0 Refills, Maintenance, 05/30/23 16:12:00 EDT, [facility], 165, cm, 05/22/23 9:22:00 EDT, Height, 100, kg, 04/04/23 16:15:00 EDT, Dry Weight Start Date: 05/30/23 Status: Ordered Myrbetriq 50 mg oral tablet, extended release 1 tablet, By Mouth, Daily, DO NOT CRUSH OR CHEW., # 90 tablet, 1 Refills, Maintenance, 09/19/23 16:25:00 EST, [facility]/pharmacy #[id number], 165, cm, 09/12/23 13:12:00 EST, Height, 100, kg, 04/04/23 16:15:00 EDT, Dry Weight Start Date: 09/19/23 Status: Ordered naratriptan 2.5 mg oral tablet 1 tablet = 2.5 mg, By Mouth, Daily, PRN for migraine headache, may repeat dose once in 4 hours, # 18 tablet, 1 Refills, Acute 07/07/24 15:56:00 EDT, 07/07/23 15:56:00 EDT, Tablet, [facility]/pharmacy #[id number],Partial fill upon patient request if the prescripti... Start Date: 07/07/23 Stop Date: 07/07/24 Status: Ordered ondansetron 8 mg oral tablet 1 tablet, By Mouth, Daily, PRN NEEDED FOR NAUSEA AND VOMITING, # 30 tablet, 0 Refills, Maintenance, 09/23/23 10:53:00 EST, [facility] STORE 91120, 165, cm, 09/12/23 13:12:00 EST, Height, 100, [...] 5 Refills, Maintenance, 11/22/22 14:08:00 EST, Capsule, [facility]/pharmacy #[id number], Partial fill upon patient request if the prescription is for a schedule II opioid drug., 165.1, cm, 11/22/22 13:38:0... Start Date: 11/22/22 Status: Ordered riboflavin 400 mg oral capsule 1 capsule = 400 mg, By Mouth, Daily, # 100 capsule, 2 Refills, Maintenance, 05/12/23 20:23:00 EDT, Capsule, [facility]/pharmacy #[id number], 165, cm, 05/08/23 10:12:00 [...] Replace Required Details Aerosol, Route toPharmacy Electronically, [id number]... Start Date: 10/11/23 Status: Ordered Ventolin 90 [...] Active 1Follows with therapist and psychiatrist at [place] per previous notes 2PFTs show no obstruction. However has h/o asthma. Ct chest in 07/27 and pulm note says restrictive lung disease mild similiar to findings on PFT 3Follows with therapist and psychiatrist at [place] per previous notes 4Sleep study in 2016. [...] Team Personnel Name: Bernabe MEHTA, Broderick Position: [facility] Resident Member Role: PCP Address: Address: [address] [place] [address] [place] [address]- Care Team Related Persons Name: MARIO GERARD Address: home [address] [place] [address] Name: CARI GARCÍA Address: home [address], [place] [address] Name: NOELLE MAY
--- OUTSIDE RECORDS SUMMARY | 2024-09-07 13:57 | XMS_ITS | Continuity of Care Document ---
Author Organization [facility] [employer] [facility] Address [address] [place] [address], [address] [place] [address]- Care Team Providers Care Clerk Specialist Name Role Phone Otilia MEHTA, Kav Primary Care Physic astrid Encounter [facility] Date(s): 12/14/19 - 12/24/19 [facility] [employer] [facility] [address], [address] [place] [address]- Attending Physician: AdmSosa jean baptiste Admitting Physician: AdmtrSosa Referring Physician: Admtr, Sosa [...] Inhalation, 2 times a day, Prescribed by Vice President [employer] # 1 each, Refills 11, Tot. Refills 11, Maintenance, 03/13/18 11:00:50 EDT, Inhaler, Route to Pharmacy Electronically, [id number], [facility]/pharmacy #[id number] Start Date: 03/13/18 Status: Ordered albuterol 0.083% inhalation solution 3 mL = 2.5 mg, Neb, Every 6 hours, PRN Wheezing/Shortness of Breath, # 360 mL, 2 Refills, Maintenance, 12/04/19 15:27:00 EST, [facility]/pharmacy #[id number], 165.1, cm, 12/04/19 14:54:00 EST, Height, 86.4, kg, 08/10/19 14:42:00 EDT, Dry Weight Start Date: 12/04/19 Status: Ordered Lety Allergy 60 mg oral tablet 3 tablet = 180 mg, By Mouth, Daily, Prescribed by Tightener in [place]., # 90 tablet, 0 Refills, Maintenance, 02/16/16 14:46:50, Tablet Start Date: 02/16/16 Stop Date: 03/17/16 Status: Ordered amitriptyline 10 mg oral tablet 10 mg, 1, tablet, By Mouth, Daily at bedtime, # 30 tablet, Refills 5, Tot. Refills 5, Maintenance, 06/30/19 15:15:49 EDT, Route to Pharmacy Electronically, [id number], [facility]/pharmacy #[id number] Start Date: 06/30/19 Status: Ordered [...] 10/14/19 17:13:14 EST, Route to Pharmacy Electronically, [id number], [facility]/pharmacy #[id number], 165.1, cm, 10/14/19 11:26:54 EST, [...] BY MOUTH DAILY,INSTR:DO NOT CRUSH OR CHEW, [facility]/pharmacy #[id number] Start Date: 07/07/19 Status: Ordered Nebulizer/Compressor See [...] 01/02/20 15:28:00 EST, 12/04/19 15:28:00 EST, Liquid, [facility]/pharmacy #[id number], 10 mL By Mouth Every 4 hours,PRN:forcough [...] 15:27:00 EDT, 12/04/19 15:27:00 EST, ER Tablet, [facility]/pharmacy #[id number], 165.1, cm, 12/04/19 14:54:00 EST, [...] apnea (AIRAM ), on CPAP(Confirmed) Active *BHN/BHCP/Leodan Rich-[phone]/[facility], active care coordination(Confirmed) Active Sjogren's syndrome(Confirmed) Active Smoker, 5-10 cigarettes per day since age 16. Quit once for 2.5 years(Confirmed) Active Systemic lupus(Confirmed) Active Chronic urticaria(Confirmed) Active Vertigo(Confirmed) Active Social History Social History Type Response Tobacco Started at age: 13 Y ears. Sex Female
--- OUTSIDE RECORDS SUMMARY | 2024-09-07 13:57 | XMS_ITS | Continuity of Care Document ---
Author Organization [facility] ter Address [address] [place] [id number]- Care Team Providers Care Head Operator Name Role Phone Broderick Kidd MD Primary Care Physician [phone] [facility] [place]/27/24 - 04/29/[address] [id number] Discharge Disposition: A-D/C Home Attending Physician: Toby Schaffer MD Admitting Physician: Baldomero Hernandez MD Referring Physician: Baldomero Hernandez MD Allergies, Adverse Reactions, Alerts No Known [...] 04/25/23 Given tetanus/diphtheria/pertussis, acel(Tdap) 3 01/28/13 Given [id number] bivalent booster vax 01/03/23 Recorded SARS-CoV-2 (COVID-19) [...] 1Result Comment: received at [facility] on [facility] in [place] 2Admin Note: flulaval vis given vis date 05/05/2012 3Admin Note: VIS GIVEN VIS DATE 11/27/2011 4Result Comment: received 2nd dose at [facility] 5Result Comment: received at [facility] Medications acetaminophen 500 mg oral tablet 2 tablet, By Mouth, Every 8 hours, PRN NEEDED FOR PAIN, # 100 tablet, 3 Refills, Maintenance, 10/11/23 11:48:00 EST, [facility]/pharmacy #[id number], 165, cm, 09/27/23 10:21:00 EST, Height, 100, kg, 04/04/23 16:15:00 EDT, Dry Weight Start Date: 10/11/23 Status: Ordered Acetaminophen Tablet 650 mg, Tablet, By Mouth, Every 4 hours, PRN for Pain , Mild, Temperature Greater than 100.5, Routine, 04/27/24 15:01:00 EDT Start Date: 04/27/24 Stop Date: 04/30/24 Status: Discontinued Ajovy Autoinjector 225 mg/1.5 mL subcutaneous solution = 225 mg, Subcutaneous Injection, Every 28 days, # 1 kit, 5 Refills, Maintenance, 03/16/24 12:10:00EDT, [facility], Partial fill upon patient request if the prescription is for a schedule II opioid drug., 165, cm, 03/10/24 10:03:00 E... Start Date: 03/16/24 Status: Ordered amitriptyline 10 mg oral tablet 1, tablet, By Mouth, Daily at bedtime, # 90 tablet, Refills 1, Tot. Refills 1, Maintenance, 12/27/23 16:05:00 EST, Route to Pharmacy Electronically, [facility]/pharmacy #[id number], 165, cm, 10/11/23 14:32:00 EST, [...] By Mouth, Daily, Refill per PCP or [facility], # 30 tablet, 2 Refills, Maintenance, 04/29/24 12:54:00 EDT, EC Tablet, [facility], Partial fill upon patient request if the prescription is for a schedule II opioid drug., 173, cm... Start Date: 04/29/24 Status: Ordered atorvastatin 80 mg oral tablet = 80 mg, By Mouth, Daily at bedtime, Refill per PCP or [facility], # 30 tablet, 0 Refills, Maintenance, 04/29/24 12:56:00 EDT, Tablet, [facility], Partial fill upon patient request ifthe prescription is for a schedule II opioid drug.,... Start Date: 04/29/24 Status: Ordered Calcium 250 mg + Vitamin [...] 0, Maintenance, 10/15/18 12:11:42 EST Start Date: 12/12/18 Status: Ordered [facility] VITAMIN B-12 500 [...] Gm, 2 Refills, Maintenance, 01/20/24 9:29:00 EDT, [id number], 25, APPLY TOPICALLY 4 TIMES A DAY, NEEDED NEUROPATHIC PAIN, 165, cm, 10/11/23 14:32:00 EST, Height... Start Date: 01/20/24 Status: Ordered duloxetine 30 mg oral enteric [...] 02/24/24 12:56:00 EDT, Route to Pharmacy Electronically, [id number], 165, cm, 02/06/24 9:54:00 EDT, Height, 100, kg, 04/04/23 16:15:00 EDT, Dry Weight Start Date: 02/24/24 Status: Ordered lidocaine 5% topical film 1 patch, Topically, Daily, PRN NEEDED FOR PAIN MILD, REMOVE AFTER 12 HOURS, # 30 patch, 0 Refills, Maintenance, 02/05/23 23:52:00 EDT, [id number], 30, APPLY 1 PATCH TOPICALLY DAILY,X30 DAYS NEEDED FOR PAIN MILD, REMOVE AFTER 12 HOURS, 168,... Start Date: 02/05/23 Status: Ordered loratadine 10 mg oral tablet 1, tablet, By Mouth, 2 times a day, # 60 tablet, Refills 0, Maintenance, 12/31/22 14:48:00 EST, Route to Pharmacy Electronically, [id number], 165.1, cm, 12/05/22 15:21:00 EST, Height Start Date: 12/31/22 Stop Date: 01/30/23 Status: Ordered losartan 50 mg oral tablet 50 mg, Tablet, By Mouth, 04/29/24 9:00:00 EDT Start Date: 04/29/24 Stop Date: 04/29/24 Status: Completed losartan 50 mg oral tablet 1 tablet, By Mouth, Daily, # 90 tablet, 1 Refills, Maintenance, 03/10/24 12:55:00 EDT, [id number], 165, cm, 03/10/24 10:03:00 EDT, Height, 100, kg, 04/04/23 16:15:00 EDT, Dry Weight Start Date: 03/10/24 Status: Ordered meclizine 25 mg oral tablet 1 tablet, By Mouth, 2 times a day, PRN NEEDED FOR DIZZINESS, # 60 tablet, 0 Refills, Maintenance, 05/30/23 16:12:00 EDT, [id number], 165, cm, 05/22/23 9:22:00 EDT, Height, 100, kg, 04/04/23 16:15:00 EDT, Dry Weight Start Date: 05/30/23 Status: Ordered metoprolol 25 mg oral tablet, extended release 12.5 mg, XL Tablet, By Mouth, 04/29/24 9:00:00 EDT Start Date: 04/29/24 Stop Date: 04/29/24 Status: Completed metoprolol 25 mg oral tablet, extended release 12.5 mg, 0.5, tablet, By Mouth, Daily, Refill per PCP or [facility], # 15 tablet, Refills 0, Tot.Refills 0, Maintenance, 04/29/24 12:56:00 EDT, Route to Pharmacy Electronically, [facility], Partial fill upon patient request if the pre... Start Date: 04/29/24 Status: Ordered Myrbetriq 50 mg oral tablet, [...] Date: 07/07/23 Stop Date: 07/07/24 Status: Ordered nicotine 21 mg/24 hr transdermal film, extended release 1 patch, Topically, Daily, for 14 days, Refill per PCP, taper down under supervision, # 14 patch, 0Refills, Acute 05/13/24 12:57:00 EDT, 04/29/24 12:57:00 EDT, Patch, [facility], Partial fill upon patient request if the prescription is... Start Date: 04/29/24 Stop Date: 05/13/24 Status: Ordered ondansetron 8 mg oral tablet 1 tablet, By Mouth, Daily, PRN NEEDED FOR NAUSEA AND VOMITING, # 30 tablet, 0 Refills, Maintenance, 09/23/23 10:53:00 EST, [id number], 165, cm, 09/12/23 13:12:00 EST, Height, 100, kg, 04/04/23 16:15:00 EDT, Dry Weight Start Date: 09/23/23 Status: Ordered pantoprazole 20 mg oral delayed release tablet = 20 mg, By Mouth, Daily, Take for next 12 months while taking aspirin and Brillinta. Refill per PCP or [facility]., # 30 tablet, 0 Refills, Maintenance, 04/29/24 12:57:00 EDT, EC Tablet, 173, cm, 04/29/24 7:26:00 EDT, Height, 101.4, kg, 04/27/24 14... Start Date: 04/29/24 Status: Ordered Plaquenil 200 mg oral tablet [...] AT BEDTIME Start Date: 04/27/24 Status: Ordered Singulair 10 mg oral tablet [...] Replace Required Details Aerosol, Route toPharmacy Electronically, [id number]... Start Date: 10/11/23 Status: Ordered ticagrelor 90 mg oral tablet 1 tablet = 90 mg, By Mouth, 2 times a day, Refill per PCP or [facility], # 60 tablet, 2 Refills, Maintenance, 04/29/24 12:57:00 EDT, Tablet, [facility], Partial fill upon patient request if the prescription is for a schedule II opioid... Start Date: 04/29/24 Status: Ordered Ventolin HFA 108 mcg/inh inhalation aerosol with adapter 2 puffs, Inhalation, Every 6 hours, PRN NEEDED FOR WHEEZE OR FOR SHORTNESS OF BREATH, # 18 each,3 Refills, Maintenance, 02/01/24 11:42:00 EDT, [id number], 165, cm, 10/11/23 14:32:00 EST, Height, 100, [...] Active 1Follows with therapist and psychiatrist at [place] per previous notes 2PFTs show no obstruction. However has h/o asthma. Ct chest in 07/27 and pulm note says restrictive lung disease mild similiar to findings on PFT 3Follows with therapist and psychiatrist at [place] per previous notes 4Sleep study in 2016. Recommended CPAP 5Lab 06/03/23 - TSH 5.88, Free T4: 1.13 6Diagnosed in 2006. Followed by [facility]. On Hydroxychloroquin and cyclobenzarpine for spasms Vital Signs Most recent to oldest [Reference Range]: 1 2 3 Height 173 cm (04/29/24 7:26 AM) 173 cm (04/29/24 2:20 AM) 173 cm (04/28/24 8:48 PM) Weight 102.9 kg (04/29/24 4:15 AM) 101.7 kg (04/28/24 6:34 AM) 101.8 kg (04/28/24 6:24 AM) Oxygen Saturation [94-100 %] 97 % (04/29/24 7: AM) 100 % (04/29/24 2:20 AM) 100 % (04/28/24 8:48 PM) Pulse Rate [55-90 bpm] 82 bpm (04/29/24 8:33 AM) 82 bpm (04/29/24 7:26 AM) 73 bpm (04/29/24 2:20 AM) Body Mass Index [18.5-24.99 kg/m2] 34.01 kg/m2 *>HHI* (04/27/24 2:34 PM) Blood Pressure [90-138/55-84 mm Hg] 118/80mm Hg (04/29/24 8:33 AM) 118/80mm Hg (04/29/24 8:33 AM) 118/80mm Hg (04/29/24 7:26 AM) Respiratory Rate [16-30 br/min] 17 br/min (04/29/24 7:26 AM) 18 br/min (04/29/24 2:20 AM) 18 br/min (04/28/24 9:00 PM) Temperature [96.8-100.4 DegF] 97.6 DegF (04/29/24 7:26 AM) 97.7 DegF (04/29/24 2:20 AM) 97.4 DegF (04/28/24 8:48 PM) Mode of Delivery (Oxygen) Room air (04/29/24 7:26 AM) CPAP (04/29/24 2:20 AM) Room air (04/28/24 8:48 PM) Blood pressure sites Arm, right (04/29/24 7:26 AM) Arm, left (04/29/24 2:20 AM) Arm, left (04/28/24 8:48 PM) Temperature Route Oral (04/29/24 7:26 AM) Temporal (04/29/24 2:20 AM) Temporal (04/28/24 8:48 PM) Dry Weight 101.4 kg (04/27/24 2:34 PM) 101.4 kg (04/27/24 2:00 PM) Weight Obtained Via Bed scale (04/29/24 4:15 AM) Bed scale (04/28/24 6:34 AM) Bed scale (04/27/24 2:34 PM) Dry Weight Obtained Via Patient/family stated (04/27/24 2:34 PM) Social History Social History Type Response Smoking Status 5-9 cigarettes (betw een 1/4 to 1/2 pack)/day in last 30 days entered on: 04/04/23 Sex Female Note * Mirna Gray: MODIFY, SIGN, PERFORM, SIGN, VERIFY Event Display: Cardiac Rehab Note Authored Date: Patient: TAYLOR SALAZAR Age: 49 years Sex: Female : 1975 Associated Diagnoses: None Author: Mirna Gray Patient s/p NSTEMI with JOHN PAUL - LAD on 04/28/24 Pt A&Ox3, VS reviewed, NSR HR 80s Pt ambulated approx 300 ft in the hallway, asymptomatic- NSR HR 84, SO2 98% with activity Educated patient on [place] handbook, stent card, home activity and post procedure guidelines, and f/u with cardiology and cardiac rehab Pt unsure of which cardiac rehab location to attend ([place] or [place] [id number]), information for both programs were provided. Pt to call a schedule an appointment when she has decided Will sign off * Karime MEHTA, Toby Cuellar: PERFORM Event Display: Discharge/Transfer Note Hospital Authored Date: [id number] Patient: ??TAYLOR SALAZAR ? Age:??49 Years?Sex:??Female?:??1975?? Patient Information Discharge Location: Primary Care Physician: Broderick Kidd MD Admit Date/Time: 04/27/24 14:17 Discharge Disposition Discharge Disposition: Home Discharge Diagnosis Tobacco use (Z72.0) CAD in hoopa artery (I25.10) S/P coronary artery stent placement (Z95.5) GERD (gastroesophageal reflux disease) (K21.9) Lupus (M32.9) HTN (hypertension) (I10) Medications Started See medrec Medications Discontinued See medrec Doses Changed See medrec Allergies Allergies ?(Active and Proposed Allergies Only) NKA? (Severity: Unknown severity, Onset: Unknown) No Known Medication Allergies? (Severity: Unknown severity, Onset: Unknown) ? Future Appointments Saturday 11:30 AM EDT ?? With: Az VENEGAS , José Miguel S Where: [facility] [address] [place] [address]- Status: Pending Saturday 3:00 PM EDT ?? With: Godwin QUINTANA, Sarina Schafer Where: [facility] [address] [facility] 3rd Floor, [address] [place] [address]- Status: Pending Hospital Course ?? Assessment and Plan ?? 49 year old female with history of asthma, anxiety,??depression, connective tissue disease including Lupus, Sjogren's, GERD, DVT,??hypertension, AIRAM on CPAP, obesity, prediabetes, vertigo, and??tobacco??use who was transferred 04/27 from [facility] for??NSTEMI.?She was eval by Cardiology; Dr. Murphy recommended for??catheterization which was performed??04/28 with JOHN PAUL placement to the??LAD.??Loaded with ticagrelor. ?? 04/29: Accepted patient under my care at 7AM. Chart reviewed, saw and examined patient.??Patient with some oozing at the??catheterization site,??per nursing,??dressing was changed,??no further bleeding reported.??She was eval by Cardiology and cleared for discharge.??She was counseled on the need tocontinue taking??DAPT??for 1 year,??she is given a prescription for PPI for now??and is advised that she may benefit from taking PPI??instead of H2 benita??given history of??GERD??alongside??DAPT. ?? NSTEMI (non-ST elevated myocardial infarction) (I21.4):??Presented to [facility] for NSTEMI??for??intermittent chest pain since 1 week??along with??fatigue, palpitations and diaphoresis EKG with nonspecific ST elevations diffusely Troponin [id number] Chest x-ray showed no acute abnormality Echo showed??an EF of 60 to 65%,focal wall motion abnormality in the distal, lateral and apical wall and no gross pericardial effusion Was started on heparin drip??and transferred to [facility]??for cardiac cath Cardiology was consulted???s/p??cardiac cath 04/28- showed severe??mid LAD lesion???JOHN PAUL to??LAD, wasloaded??with ticagrelor ?? -DC home -Continue??aspirin??indefinitely -Continue??ticagrelor??90 mg p.o. twice daily??for at least 12 months post PCI -Continue statin, metoprolol, losartan -HCTZ on hold for now -Follow-up with Cardiology as an outpatient -Emphasized smoking cessation, given rx for patch ?ACEI or ARB for LVSD:??ARB has been ordered ?Beta-Benita Ordered:??Beta-Benita Ordered ?Aspirin Ordered:??Aspirin Ordered ?Statin Ordered:??Statin Ordered ?Cardiac Rehabilitation (Phase I):??Inpatient Consultation Ordered ?? Asthma (clinical diagnosis) (J45.909):?? -Continue Breo Ellipta, montelukast and prn albuterol. ? Depression (F32.A):?? -Continue??duloxetine, clonidine, amitriptyline, risperidone??and prn clonazepam. ?? 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 -Continue hydroxychloroquine ?? Gastroesophageal reflux disease (GERD) (K21.9):?? -Continue PPI. and famotidine. ?? Migraines (G43.909):?? -On Ajovy??injections monthly. -PRN sumatriptan. ? Vertigo (R42):?? -On Meclizine prn. ?? Prediabetes (R73.03):??A1c at 5.8 -PCP f/u ?? AIRAM on CPAP (G47.33):?? -Continue CPAP? Please note, dictation software (Quart[employer])??may have been used in the preparation of this note, and may have generated unintentional errors in speech recognition. If there are any questions going forward, please reach out for clarification. ? Objective Measurements?? Height: 173 cm (04/29/24) Weight: 102.9 kg (04/29/24) Dry Weight: 101.4 kg (04/27/24) Body Mass Index:??34.01 kg/m2??Critical (04/27/24) ? Vital Signs?? Temperature: 97.6 DegF (04/29/24 07:26:00) Temperature Route: Oral (04/29/24 07:26:00) Pulse Rate: 82 bpm (04/29/24 08:33:00) Respiratory Rate: 17 br/min (04/29/24 07:26:00) Systolic Blood Pressure: 118 mm Hg (04/29/24 08:33:00) Systolic Blood Pressure: 118 mm Hg (04/29/24 08:33:00) Diastolic Blood Pressure: 80 mm Hg (04/29/24 08:33:00) Diastolic Blood Pressure: 80 mm Hg (04/29/24 08:33:00) Blood pressure sites: Arm, right (04/29/24 07:26:00) Mean Arterial Pressure: 93 mm Hg (04/29/24 07:26:00) Pulse Pressure: 38 mm Hg (04/29/24 07:26:00) Oxygen Saturation: 97 % (04/29/24 07:26:00) Mode of Delivery (Oxygen): Room air (04/29/24 07:26:00) Early Warning Score: 0 (04/29/24 14:23:11) ? . Physical Exam Constitutional: Alert, in no acute distress. Head EENT: PERRL.??NCAT. Neck: Supple. No obvious LAD. Respiratory: CTAB. No use of accessory muscles. Cardiovascular: S1S2 present. No obvious JVD. Gastrointestinal: Abdomen soft, non-tender, non-distended. Bowel sounds present. Genitourinary: No CVA tenderness. Genital exam deferred. Extremities: No lower extremity pitting??edema. No cyanosis or clubbing. Neurologic: Alert, generally appropriate. Speech normal. No gross focal neurological deficits. Consultants Cardiology Pending Results Basic Metabolic Panel ordered on 04/27/2024 CBC ordered on 04/27/2024 CBC ordered on 04/27/2024 Patient Education Titles WebMD Ignite Patient Education - Surgery Radial Cath Approach Discharge Instructions?? [employer] Patient Education - Discharge Instructions for Cardiac Catheterization?? [employer] Patient Education - Bleeding or Hematoma After Cardiac Catheterization?? [employer] Patient Education - Nicotine Transdermal System?? [employer] Patient Education - Planning to Quit Smoking?? [employer] Patient Education - Zones Living Smoke Free?? Web[employer]ite Patient Education - Ticagrelor Oral Tablet?? [employer] Patient Education - Pantoprazole?? [employer] Patient Education - Atorvastatin?? [employer] Patient Education - Aspirin Oral Tablet?? [employer] Patient Education - Metoprolol Extended Release Oral Tablet?? [employer] Patient Education - Discharge Instructions for Coronary Angioplasty and Stenting?? [employer] Patient Education - Understanding Coronary Artery Disease (CAD)?? Follow-Up Appointments Added Follow Up ?Time Frame ?Comments Jeffrey MEHTA, Donis Kidd MD, Broderick Patient Instructions -Follow up with Primary Care doctor in the next 1-2 weeks for a hospital follow up appointment , call the office when you get home to set this up -Follow up with [facility] -Take aspirin and??Brillinta for next 12 months, do not stop taking; if you develop concerns about bleeding call your doctor before stopping -Take low-dose??Protonix for next 12 months ?? -Wound care per [facility] recommendations, if minor bleeding then can apply local pressure, seekcare if bleeding does not resolve ?? -Stop Hydrochlorothiazide for now, can talk to PCP or [facility] about restarting as needed ?? -Good job quitting smoking!??You are given a prescription for nicotine patch. Do not smoke while onthe patch or your body can get used to higher amount of nicotine. Your PCP can refill the patch andgive you instructions on tapering down on the patch. ?? Post Discharge Care Discharge ?home, 04/29/24 12:59:00 EDT Results Discharge Labs BLOOD COUNT & DIFF WBC 7.0 k/mm3 ()?? 04/29/2024 02:53 RBC 3.76 m/mm3 (Low)?? 04/29/2024 02:53 Hgb 11.2 Gm/dL (Low)?? 04/29/2024 02:53 Hct 33.7 % (Low)?? 04/29/2024 02:53 MCV 89.6 femtoliters ()?? 04/29/2024 02:53 MCH 29.8 pg ()?? 04/29/2024 02:53 MCHC 33.2 g/dL ()?? 04/29/2024 02:53 Platelet Count 230 k/mm3 ()?? 04/29/2024 02:53 RDW-SD 44.1 femtoliters ()?? 04/29/2024 02:53 MPV 11.4 femtoliters ()?? 04/29/2024 02:53 Nucleated RBC (Automated) 0.0 #/100 WBC'S ()?? 04/29/2024 02:53 Abs. NRBC 0.0 k/mm3 ()?? 04/29/2024 02:53 ?? CARDIAC High Sensitivity Troponin (HSTnT) 396 ng/L (Critical)?? 04/27/2024 17:22 ? CHEM GENERAL Sodium 135 mmol/L ()?? 04/29/2024 02:53 Potassium 4.3 mmol/L ()?? 04/29/2024 02:53 Chloride 104 mmol/L ()?? 04/29/2024 02:53 Bicarbonate Level 23 mmol/L ()?? 04/29/2024 02:53 Anion Gap 8 ()?? 04/29/2024 02:53 Glucose Level 97 mg/dL ()?? 04/29/2024 02:53 Hemoglobin A1C (Monitoring) 5.8 % (High)?? 04/27/2024 21:27 BUN 11 mg/dL ()?? 04/29/2024 02:53 Creatinine-Blood 0.72 mg/dL ()?? 04/29/2024 02:53 Estimated GFR Creatinine 104 ML/MIN/1.73 M2 ()?? 04/29/2024 02:53 Calcium 9.1 mg/dL ()?? 04/29/2024 02:53 ALT (SGPT) 81 units/L (High)?? 04/27/2024 21:27 ?? COAG APTT 69.6 seconds (High)?? 04/28/2024 07:28 POC ACT-LR 338.0 seconds ()?? 04/28/2024 11:24 ?? LIPID STUDIES Cholesterol 152 mg/dL ()?? 04/28/2024 01:03 Triglycerides 126 mg/dL ()?? 04/28/2024 01:03 HDL Cholesterol 41 mg/dL ()?? 04/28/2024 01:03 LDL Cholesterol 86 mg/dL ()?? 04/28/2024 01:03 Non HDL Cholesterol 111 mg/dL ()?? 04/28/2024 01:03 ? URINE OTHER Est Creatinine Clearance 97.83 mL/min ()?? 04/27/2024 18:16 ? 40??minutes spent on discharge * Rene Gillette RN: PERFORM Event Display: Discharge/Transfer Note Hospital Authored Date: [id number] Nursing Discharge Note Entered On: 04/29/2024 14:06 EDT Performed On: 04/29/2024 14:05 EDT by Rene Gillette RN Nursing Discharge Note 2 Discharge Time : 04/29/2024 14:19 EDT Rene Gillette RN - 04/29/2024 14:19 EDT Discharge Level of Care at Discharge : Home/Longterm/Foster Care Patient Left Unit Via : Wheelchair Patient Accompanied Off Unit with : Significant other, Responsible adult DC Instructions Provided & Signed by Pt : Yes Patient Understands D/C Instructions : Yes Patient Instructions Discharge Signed : Yes Did Pt have Specialty Bed or Wound Vac : No Rene Gillette RN - 04/29/2024 14:05 EDT * Syl Cooper RN: PERFORM Event Display: Patient Education/Instruction Authored Date: [id number] Inpatient Adult Discharge Instructions. [address] [address] Name: TAYLOR SALAZAR : 1975?? Visit: 04/27/2024 14:17?? Current Date: 04/29/2024 13:25 ?? Account: [id number]?? Inpatient Adult Discharge Instructions We would like to thank you for allowing us to assist you with your healthcare needs. The following includes patient education materials and information regarding your injury/illness. Our entire staffstrives to provide an excellent experience for our patients and their families. PLEASE ENSURE YOU FOLLOW-UP PER THE INSTRUCTIONS BELOW! ?? YOUR OPINION IS IMPORTANT TO US! Please complete the survey you may receive by mail or email. Your feedback will be used to make improvements to the healthcare experiences of our patients and their families. Surveys are administered by [employer] ?? If further treatment with your primary care physician or another doctor is recommended, it is important for you to keep the appointment. Call your primary care physician or return to the Emergency Department immediately if your condition worsens, fails to improve, or new symptoms develop. If you need to find a doctor, you can call [facility] for a referral at [phone] or toll free at [phone] or log in to [email or web address].. ?? [facility], in keeping with [facility] guidance, no longer requires face masks for staff, patientsor visitors in most situations. Similiar to time spent indoors at other locations, there is the chance that you were exposed to repiratory viruses during your time with us (such as flu or COVID-19). If you develop symptoms concerning for a viral respiratory infection, please seek testing (and treatment if indicated) from your medical provider or home test kit. ?? You can view and manage your care through the patient portal or by using a health care chica of your choosing. [employer] is a website that allows you to securely view your medical information including your hospital discharge summary, office visit summaries, medications and follow-up visits. You can also request appointments, renew medications, and request access to your medical information using a health care chica of your choosing, or just ask a question. You can enroll at [email or web address] or register during your next office visit. You have been discharged from [facility], Patient Care Unit: M7??. If you have any questions regarding these instructions, including results of studies pending, afteryou leave, please call us and we will be happy to assist you 27/05. [facility] Your Care Team Attending Physician Toby Schaffer MD?? Consulting Providers Toby Schaffer MD?? Discharging Providers Toby Schaffer MD Your Diagnosis Tobacco use Tests Performed Below is a partial list of the tests performed during your hospitalization. You may have had other tests and procedures not included in this list. Please discuss all test results with your provider. ALT Basic Metabolic Panel CBC Hgb A1C (Monitoring) Lipid Panel POC Hemochron ACT-LR PTT Troponin T, High Sensitivity Basic Metabolic Panel?? CBC?? Primary Care Provider Broderick Kidd MD? Advance Directive Health Care Proxy on File Yes - Health Care Proxy Patient has a Designated Caregiver: No Discharge Vitals Temperature: 97.6 DegF Height: 173 cm Pulse Rate: 82 bpm Weight: 102.9 kg Respiratory Rate: 17 br/min Body Mass Index:??34.01 kg/m2??Critical Systolic Blood Pressure: 118 mm Hg Body surface area: 2.21 Systolic Blood Pressure: 118 mm Hg ?? Diastolic Blood Pressure: 80 mm Hg ?? Diastolic Blood Pressure: 80 mm Hg ?? Oxygen Saturation: 97 % ?? Studies Pending All studies ordered during this hospital stay have been completed unless listed below. Please discuss all pending results with your provider listed above in these instructions. ?? Basic Metabolic Panel?? CBC?? What to do next Instructions From Your Doctor -Follow up with Primary Care doctor in the next 1-2 weeks for a hospital follow up appointment , call the office when you get home to set this up -Follow up with [facility] -Take aspirin and??Brillinta for next 12 months, do not stop taking; if you develop concerns about bleeding call your doctor before stopping -Take low-dose??Protonix for next 12 months ?? -Wound care per [facility] recommendations, if minor bleeding then can apply local pressure, seekcare if bleeding does not resolve ?? -Stop Hydrochlorothiazide for now, can talk to PCP or [facility] about restarting as needed ?? -Good job quitting smoking!??You are given a prescription for nicotine patch. Do not smoke while onthe patch or your body can get used to higher amount of nicotine. Your PCP can refill the patch andgive you instructions on tapering down on the patch. ? Orders?? , ??04/29/24 12:59:00 EDT?? Scheduled Follow-Up Appointments Saturday 11:30 AM EDT ?? With: Az VENEGAS , José Miguel Hunter Where: [facility] [address] [place] [address]- Status: Pending Saturday 3:00 PM EDT ?? With: Godwin QUINTANA, Sarina Schafer Where: [facility] [address] [facility] 3rd Floor, [address] [place] [id number]- Status: Pending You Need to Schedule the Following Appointments Follow Up with??Donis Murphy MD Follow Up with??Broderick Kidd MD Where: ?? Discharge Medications TAYLOR SALAZAR :1975 Visit Date:04/27/2024 Medications: Please continue your medications until treatment is completed or stopped by your provider. Medications not listed below should be discontinued. Discuss any questions related to medications with your provider. What How Much When Why Instructions Next Dose New Aspirin (aspirin 81 mg oral delayed release tablet) 81 Milligram Oral Daily Refills: 2 Refill per PCP or [facility] ?? Pickup at [place] [address] tomorrow at 8am New Atorvastatin (atorvastatin 80 mg oral tablet) 80 Milligram Oral Daily at Bedtime Refill per PCP or [facility] ?? Pickup at [place] [address] bedtime New Metoprolol (metoprolol 25 mg oral tablet, extended release) 0.5 tab(s) Oral Daily Refill per PCP or [facility] ?? Pickup at [place] [address] tomorrow at 8am New Nicotine (nicotine 21 mg/ 24 hr transdermal film, extended release) 1 patch(es) Topically Daily Duration: 14 Days Refill per PCP, taper down under supervision ?? Pickup at [place] [address] tomorrow at 8am New Pantoprazole (pantoprazole 20 mg oral delayed release tablet) 20 Milligram Oral Daily Take for next 12 months while taking aspirin and Brillinta. Refill per PCP or [facility]. ?? Pickup at [place] [address] tomorrow at 8am New Ticagrelor (ticagrelor 90 mg oral tablet) 1 tab(s) Oral Twice a day Refills: 2 Refill per PCP or [facility] ?? Pickup at [place] [address] tonight at 8pm Changed Duloxetine (duloxetine 30 mg oral enteric coated capsule) 1 capsule Oral Daily do not crush or chew ?? tomorrow at 8am Changed Naratriptan (naratriptan 2.5 mg oral tablet) 1 tab(s) Oral Daily as needed for for migraine headache may repeat dose once in 4 hours ?? Daily as needed for for migraine headache Changed Risperidone (risperiDONE 2 mg oral tablet) TAKE 1 TABLET BY MOUTH EVERYDAY AT BEDTIME ?? bedtime Unchanged Acetaminophen (acetaminophen 500 mg oral tablet) 2 tab(s) Oral Every 8 hours as needed for NEEDED FOR PAIN Every 8 hours as needed for NEEDED FOR PAIN Unchanged Albuterol (Ventolin HFA 108 mcg/ inh inhalation aerosol with adapter) 2 puff(s) Inhalation Every 6 hours as needed for NEEDED FOR WHEEZE OR FOR SHORTNESS OF BREATH Every 6 hours as needed for NEEDED FOR WHEEZE OR FOR SHORTNESS OF BREATH Unchanged amiTRIPTYLINE (amitriptyline 10 mg oral tablet) 1 tab(s) Oral Daily at Bedtime bedtime Unchanged Ammonium Lactate 12% (ammonium lactate 5% topical lotion) 1 chica Topically Twice a day as needed for Dry Skin Dry skin dermatitis Duration: 14 Days apply and rub in well ?? Twice a day as needed for Dry Skin Unchanged Ascorbic Acid (Vitamin C) Oral Daily tomorrow at 8am Unchanged Budesonide-Formoterol (Symbicort 80mcg/ 4.5mcg Inhaler) See instructions 1 puff 2 x per day BRand name covered by hne, As needed for Wheezing/ Shortness of Breath ?? tomorrow at 8am Unchanged Calcium And Vitamin D Combination (Calcium 250 mg + Vitamin D 125 IU Tablet) Oral Twice a day tonight at 8pm Unchanged Clonazepam (clonazepam 0.5 mg oral tablet) 1 Milligram Oral 3 times a day today at 8pm Unchanged Clonidine (cloNIDine 0.1 mg oral tablet) 1 tab(s) Oral Daily at Bedtime bedtime Unchanged Cyanocobalamin (cyanocobalamin 1000 mcg oral tablet) 1 tab(s) Oral Daily tomorrow at 8am Unchanged Cyclobenzaprine (cyclobenzaprine 5 mg oral tablet) as before Unchanged Diclofenac Topical (diclofenac 1% topical gel) See instructions APPLY TOPICALLY 4 TIMES A DAY, NEEDED NEUROPATHIC PAIN ?? APPLY TOPICALLY 4 TIMES A DAY, NEEDED NEUROPATHIC PAIN Unchanged Famotidine (famotidine 20 mg oral tablet) 1 tab(s) Oral Twice a day tonight at 8pm Unchanged fremanezumab (Ajovy Autoinjector 225 mg/ 1.5 mL subcutaneous solution) 225 Milligram Subcutaneous Injection Every 28 days as before Unchanged Hydroxychloroquine (Plaquenil 200 mg oral tablet) 2 tab(s) Oral Daily tomorrow at 8am Unchanged Lidocaine Topical (lidocaine 5% topical film) 1 patch(es) Topically Daily as needed for NEEDED FOR PAIN MILD, REMOVE AFTER 12 HOURS Topically Daily as needed for NEEDED FOR PAIN MILD, REMOVE AFTER 12 HOURS Unchanged Loratadine (loratadine 10 mg oral tablet) 1 tab(s) Oral Twice a day Duration: 30 Days tonight at 8pm Unchanged Losartan (losartan 50 mg oral tablet) 1 tab(s) Oral Daily tomorrow at 8am Unchanged Meclizine (meclizine 25 mg oral tablet) 1 tab(s) Oral Twice a day as needed for NEEDED FOR DIZZINESS Twice a day as needed for NEEDED FOR DIZZINESS Unchanged mirabegron (Myrbetriq 50 mg oral tablet, extended release) 1 tab(s) Oral Daily DO NOT CRUSH OR CHEW. ?? tomorrow at 8am Unchanged Miscellaneous Rx ([facility] VITAMIN B-12 500 MCG TAB) 1 tab(s) Oral Daily tomorrow at 8am Unchanged Miscellaneous Rx (RIBOFLAVIN 400 MG TABLET) 1 tab(s) Oral Daily tomorrow at 8am Unchanged Montelukast (Singulair 10 mg oral tablet) 1 tab(s) Oral Daily in PM tonight at bedtime Unchanged Ondansetron (ondansetron 8 mg oral tablet) 1 tab(s) Oral Daily as needed for NEEDED FOR NAUSEA AND VOMITING as needed for nausea Unchanged Pregabalin (pregabalin 200 mg oral capsule) 1 capsule Oral Twice a day tonight at 8pm Pharmacy Information [facility] 3: [address] [place] [address] [phone] ?? What How Much When Comments Stop Taking alpha-lipoic acid (Eboxb-Kepqrk-Hsmb 300 mg oral capsule) 1 capsule Oral Twice a day stop Stop Taking Hydrochlorothiazide (hydrochlorothiazide 25 mg oral tablet) 1 tab(s) Oral Daily stop Stop Taking HydrOXYzine 25 Milligram Oral Twice a day as needed for as needed for itching stop Prescription Given During Visit Aspirin (aspirin 81 mg oral delayed release tablet) - 81 mg, By Mouth, Daily, # 30 tablet, 2 Refills, Refill per PCP or [facility], [address] [phone]?? Atorvastatin (atorvastatin 80 mg oral tablet) - 80 mg, By Mouth, Daily at bedtime, # 30 tablet, 0 Refills, Refill per PCP or [facility], [place] [phone]?? Metoprolol (metoprolol 25 mg oral tablet, extended release) - 0.5 tablet = 12.5 mg, By Mouth, Daily, # 15 tablet, 0 Refills, Refill per PCP or [facility], [address] [address] [phone]?? Nicotine (nicotine 21 mg/24 hr transdermal film, extended release) - 1 patch, Topically, Daily, # 14 patch, 0 Refills, Refill per PCP, taper down under supervision, [place] [phone]?? Pantoprazole (pantoprazole 20 mg oral delayed release tablet) - 20 mg, By Mouth, Daily, # 30 tablet, 0 Refills, Take for next 12 months while taking aspirin and Brillinta. Refill per PCP or [facility]., [facility] [address] [phone]?? Ticagrelor (ticagrelor 90 mg oral tablet) - 1 tablet = 90 mg, By Mouth, 2 times a day, # 60 tablet,2 Refills, Refill per PCP or [facility], [place] [phone]?? Laboratory Results Below is a partial list of the most recent Laboratory test results done prior to this discharge. You may have had other tests and procedures not included in this list. Please discuss all test resultswith your provider. Est Creatinine Clearance - 97.83 mL/min (04/27/2024) ALT (04/27/2024) ???ALT (SGPT) - 81 units/L Basic Metabolic Panel (04/29/2024) ???Sodium - 135 mmol/L???Potassium - 4.3 mmol/L???Chloride - 104 mmol/L???Bicarbonate Level - 23 mmol/L???Anion Gap - 8???Glucose Level - 97 mg/dL???BUN - 11 mg/dL???Creatinine-Blood - 0.72 mg/dL???Estimated GFR Creatinine - 104 ML/MIN/1.73 M2???Calcium - 9.1 mg/dL CBC (04/29/2024) ???WBC - 7.0 k/mm3???RBC - 3.76 m/mm3???Hgb - 11.2 Gm/dL???Hct - 33.7 %???MCV - 89.6 femtoliters???MCH - 29.8 pg???MCHC - 33.2 g/dL???Platelet Count - 230 k/mm3???RDW-SD - 44.1 femtoliters???MPV - 11.4 femtoliters???Nucleated RBC (Automated) - 0.0 #/100 WBC'S???Abs. NRBC - 0.0 k/mm3 Hgb A1C (Monitoring) (04/27/2024) ???Hemoglobin A1C (Monitoring) - 5.8 % Lipid Panel (04/28/2024) ???Cholesterol - 152 mg/dL???Triglycerides - 126 mg/dL???HDL Cholesterol - 41 mg/dL???LDL Cholesterol - 86 mg/dL???Non HDL Cholesterol - 111 mg/dL POC Hemochron ACT-LR (04/28/2024) ???POC ACT-LR - 338.0 seconds PTT (04/28/2024) ???APTT - 69.6 seconds Troponin T, High Sensitivity (04/27/2024) ???High Sensitivity Troponin (HSTnT) - 396 ng/L Allergies (NKA means No Known Allergies) NKA No Known Medication Allergies Problems Active Problems??(22) Anxiety?? Asthma (clinical diagnosis)?? Chronic constipation?? Chronic urticaria?? De Quervain's tenosynovitis?? Depression?? Discoid lupus?? Family history of breast cancer in mother (in her 30's)?? Fibromyalgia syndrome?? Gastroesophageal reflux disease (GERD)?? Last pap smear 09/23/12 negative with negative HPV. Status post total vaginal hysterectomy, no furth?? Lung nodules, bilateral?? Migraines?? Mixed urinary incontinence urge and stress (primarily urge)?? Obese class I?? Obstructive sleep apnea (AIRAM), on CPAP?? Sjogren's syndrome?? Small fiber neuropathy, bilateral legs?? Smoker, 5-10 cigarettes per day since age 16. Quit once for 2.5 years?? Subclinical hypothyroidism?? Systemic lupus?? Vertigo?? Education Materials Below is the list of Educational Leaflet Providered with your Discharge Instructions. [employer] Patient Education - Nicotine Transdermal System?? [employer] Patient Education - Planning to Quit Smoking?? [employer] Patient Education - Zones Living Smoke Free?? [employer] Patient Education - Ticagrelor Oral Tablet?? [employer] Patient Education - Pantoprazole?? [employer] Patient Education - Atorvastatin?? [employer] Patient Education - Aspirin Oral Tablet?? [employer] Patient Education - Metoprolol Extended Release Oral Tablet?? [employer] Patient Education - Discharge Instructions for Coronary Angioplasty and Stenting?? [employer] Patient Education - Understanding Coronary Artery Disease (CAD)?? Valuables and Belongings I fully understand and agree that [facility] accepts no responsibility for all my personal property including clothing, toilet articles, radios, jewelry, dentures, hearing aids, rings, money, or any other property that is in my possession or is brought to me after admission. I understand certain valuables may be placed in a hospital safe for a short period of time. I understand that the hospital is not liable for loss or damage due to accident, fire, or other natural occurrence while said property is in the safe. I accept full responsibility for any personal property that I keep with me, and will not hold the hospital responsible in case of loss or disappearance. I acknowledge that i have been encouraged to send valuables and belongings home. ?? Date for Pt to Sign Valuables/Belongings: 04/27/24 14:42:00 ?? Other Discharge Information ? Pulmonary Rehab Status?? Pulmonary Rehab Discharge Status?? Respiratory Rate: 17 br/min ? Cardiac Rehab Assessment?? Cardiac Rehab Inpatient Assessment?? Comments-Education: [place] Handbook given, stent card reviewed Comments-Smoking Cessation: encourage cessation resources Comments-Exercise Activity: progressive activity as tolerated Comments-Nutrition: per RD Comments-Stress Management: healthy coping skills Comments-Lipids: diet and medication per MD Comments-Other plan of care: encourage phase 2 cardiac rehab Common Emergency Awareness Tips IS IT A STROKE? Act FAST and Check for these signs: FACE Does the face look uneven? ARM Does one arm drift down? SPEECH Does their speech sound strange? TIME Call at any sign of stroke ?? Heart Attack Signs Chest discomfort: Most heart attacks involve discomfort in the center of the chest and lasts more than a few minutes, or goes away and comes back. It can feel like uncomfortable pressure, squeezing, fullness or pain. Discomfort in upper body: Symptoms can include pain or discomfort in one or both arms, back, neck, jaw or stomach. Shortness of breath: With or without discomfort. Other signs: Breaking out in a cold sweat, nausea, or lightheaded. Remember, MINUTES DO MATTER. If you experience any of these heart attack warning signs, call to get immediate medical attention! ?? Smoking can increase your chances of developing chronic health problems and can cause harmful effects to other family members in your house. If you smoke, you are strongly encouraged to quit. Please call [facility] [employer] Link at [phone] or [phone] ([phone]) or log in to [email or web address] for referrals to smoking cessation programs. ?? 357 Suicide & Crisis Lifeline is available 27/05 if you or someone you know needs to find a reason to keep living. By calling 513 you'll be connected to a skilled, trained counselor at a crisis center in your area. INPATIENT DISCHARGE INSTRUCTIONS SIGNATURE PAGE TAYLOR SALAZAR Location:[facility] Registration Date and Time:04/27/2024 14:17 EDT Primary Care Physician: Bernabe MEHTA, Broderick, Attending Physician: Karime MEHTA, Toby Cuellar, I TAYLOR SALAZAR, have received the above patient education materials/instructions and have verbalized understanding. If ambulance or transport services are being used I further acknowledge being given a choice of service. ?? If you need to contact me, please call me at this number: . Patient/Bed Rubber Name: Patient/Bed Rubber Signature: Relationship to Patient: Witness Name/Signature: Date: * Syl Cooper RN: PERFORM Event Display: Patient Education Leaflets Authored Date: [id number] Surgery Radial Cath Approach Discharge Instructions ?? 278 Radial Cath Approach Discharge Instructions ?? Activity Take it easy the rest of the day. Limit your activity on the affected side.?? Act as if your arm is broken for 24 hours. No lifting with affected arm for 24 hours. No pushing or pulling with the affected arm. Do not reach or lift with the affected arm. Do not place excessive pressure on the wrist. ?? Precautions Due to intravenous sedation: It is recommended that someone stay with you for the first night after your procedure. Do not drive or operate hazardous machinery for 24 hours. Do not make legal decisions for 24 hours. Avoid alcohol for 24 hours. Unless directed otherwise, keep yourself hydrated. ?? Dressing/Incision Care You may remove the dressing 24 hours after your procedure. Replace with band aid for an additional 24 hours. You may shower and cleanse the site with soap & water then pat dry. Avoid submersion of site in water x 5 days. Cover the with a clean band aid daily until site is healed. If the band aid becomes soiled, replacewith a clean new one. Do not apply any ointments, lotions, gels or powders to the puncture site. ?? When to contact your doctor If any of the following signs of infection occur: Fever greater than 100 degrees F Increased pain Drainage, redness or warmth at puncture site Tingling of the fingers and hand that last longer than 3 days Slight bubble of blood or bleeding from site: apply manual pressure and notify your doctor ?? Emergency situations: Bleeding from the site that will not stop: apply manual pressure and notify your doctor Profuse bleeding streaming from the puncture site: Apply manual pressure and notify your doctor immediately If your hand becomes bluish, cold to the touch, or painful, notify your doctor immediately or go toEmergency Department. For these emergent situations: If unable to contact your physician, call 911. ?? * Syl Cooper RN: PERFORM Event Display: Patient Education Leaflets Authored Date: [id number] Discharge Instructions for Cardiac Catheterization ?? [id number] Discharge Instructions for Cardiac Catheterization Cardiac catheterization??is an invasive??procedure??to look for certain heart problems. These problems may affect the heart's chambers, valves, and blood vessels. A thin, flexible tube (catheter) is put in a blood vessel in your groin or arm. The catheter is moved to the heart. The healthcare provider can look at the blood flow, blood pressure, and oxygen. They can inject contrast fluid??into your blood. This flows to your heart.??The provider can then take X-rays pictures?? of your heart. Coronary angiography is often done as part of a cardiac cath. This looks for blocked areas in the arteries that send blood to the heart. If a blockage is found, your provider may try to open up the artery. They may put a stent in place. Your provider will talk with you about the results of your procedure . Ask any questions you have before you leave. This sheet will help you take care of yourselfat home. Home care ??? Have a responsible adult drive you home after your procedure. ??? Don't drive or makeany important decisions for at least 24 hours after getting any type of sedation or anesthesia.? Drink?? 6 to 8??glasses of water over the next 24 hours. This is to help flush the contrast dye out of your body. Call your healthcare team if your urine has any change in color. ??? Take your tempe rature each day for 3 to 5 days. If you feel cold and clammy or start sweating, take your temperature right away. Call your healthcare team. ??? Do only light and easy activities for??the next?? 2 to3??days. Ask for help with chores and errands while you recover. Have someone drive you to your appointments. ??? Don't lift anything heavy??until your healthcare team says it's safe. ??? Ask your healthcare team when you can expect to return to work. Unless your job involves lifting, you may be able to return to your normal activities within 2 days. ??? Take your medicines as directed. Don't skip doses. ??? Check your incisions every day for signs of infection. These include redness, swelling,and fluid leaking. It's normal to have a small bruise or bump where the catheter was put in. A bruise that's getting larger is not normal. Tell your healthcare team about this. Call your healthcare team if you see blood forming in the incision. Go to the emergency room if you have uncontrolled bleeding from the artery site. This is even more important if you take medicines that make it hard for your blood to clot. These include aspirin, clopidogrel, warfarin, apixaban, and rivaroxaban. ??? Eat a healthy diet. Make sure it's low in fat, salt, and cholesterol. Ask your healthcare team for diet information. ??? Stop smoking. Sign up for a quit-smoking program. Or ask your healthcare team for help. ??? Exercise as your healthcare team tells you to. Your healthcare team??may advise you to start a cardiac rehab program. Cardiac rehab is an exercise program where trained healthcare staff watchyour progress and stress on your heart while you exercise. Ask your team how to enroll. ??? Don't swim or take baths until your healthcare team says it???s OK. You can shower the day after the procedure. Keep the site clean and dry. This keeps the incision from getting wet and infected until the skin and artery can heal. ??? Follow all other after-care instructions from your team.? Follow-up care ??? Make a follow-up appointment as advised. It's common to have a follow-up appointment 2 to 4 weeks after an angioplasty or coronary stent procedure. ??? Make a yearly appointment. This is??to make sure you're still doing well and not having any new symptoms. ??? Don't wait for a follow-up appointment if your medicines aren't working or you're having heart-related symptoms. Call your healthcare provider. ?? When to get medical care Call your healthcare provider right away if you have any of these: ??? Severe or increasing pain, numbness, coldness, or a bluish color in the leg or arm that held the catheter ??? Fever of 100.4?? F??( 38??C) or higher, or as advised by your healthcare provider ??? Signs of infection at the incision site. These include redness, swelling, drainage, or warmth. ??? Bleeding, bruising, or a lot of??swelling where the catheter was inserted ??? Blood in your urine ??? Black or tarry stools ??? Any unusual bleeding ??? Irregular, very slow, or fast heartbeat ??? Dizziness ?? Call 911 Call 911 if you have any of these: ??? Chest pain ??? Shortness of breath ??? Sudden numbness or weakness in arms, legs, or face, or trouble speaking ??? The puncture site swells up very fast ??? Bleeding from the puncture site that doesn't slow down with firm pressure ?? Last Reviewed Date: 2022 ?? 3412-3532 The [employer]. All rights reserved. This information is not intended as a substitute for professional medical care. Always follow your healthcare professional's instructions. ?? * Syl Cooper RN: PERFORM Event Display: Patient Education Leaflets Authored Date: [id number] Bleeding or Hematoma After Cardiac Catheterization ?? [id number] Bleeding or Hematoma After Cardiac Catheterization You recently had cardiac catheterization. A catheter was put into your body through a puncture of an artery in your groin or arm. You now have bleeding from this site. When bleeding occurs, it may drip or spurt from the site. Or it may collect in a lump (hematoma) under the skin. This often requires urgent evaluation in an emergency room. First put direct pressure on the site and call 911 or [facility]. In the emergency room, more pressure will be put on the site to stop bleeding. You may be sent home if the bleeding can be controlled and you are feeling well enough. To prevent repeat bleeding, take some precautions at home. If the bleeding starts again, follow the advice below. Home care For the next 48 hours: ??? Don't do any strenuous activity. ??? Don't climb any stairs if possible ??? Don't lift anythinggreater than 5 pounds. ??? If the puncture site is in your arm or wrist, don't lie on that arm. ???If your puncture site is in the groin, don't??strain at bowel movements. ??? Don't scrub the site when bathing. It's fine to get it wet after your healthcare provider says it's OK, but don't scrub itor massage it. Don't take a tub bath for 3 days after the procedure. ??? Don't drive for the next 48 hours If bleeding happens again, call 911. Take the following steps to stop the bleeding until help arrives: ??? Lie on your back. ??? Place a clean cloth or gauze pad over the puncture site. Then hold firm pressure right on the site. Or have someone else apply firm pressure using the??gauze pad or??washcloth. ??? Keep your arm straight and raised above the level of your heart if the site is in your arm or wrist. If the site is in your groin, have someone else hold pressure on the site. ??? Don't press too hard! If you press too hard, your leg and foot (or arm and hand) will not get blood flow and??the skin under your toenails or fingernails may turn white. The skin should look pink, like the toen ails on your other foot. When you (or someone) presses on the toenail it will turn white, but when you stop pressing on the nail it will turn pink again. This is called capillary refill. If there is someone with you, they can check it. ??? If your toes, foot, or leg start feeling numb, tingly, orcold, ease up on the pressure, you are probably pressing too hard. ??? As soon as emergency care arrives, they will take over your care. ?? Follow-up care Follow up with your healthcare provider, or as advised. Ask your healthcare provider for a contact number to call. ?? Call 911 Call 911 if any of these occur: ??? Chest pain or pressure ??? Any bleeding from the site ??? Feeling weak or faint ??? Trouble breathing ??? Lump (hematoma) is??quickly getting larger ??? Coolness, numbness, tingling, or skin color changes in the leg or arm with the puncture site ?? When to seek medical advice Call your healthcare provider right away??if any of these occur: ??? Increased pain, redness, swelling, or drainage from the puncture site ??? Nausea or vomiting ??? Fever of 100.4??F (38??C) or higher, or as directed by your provider ?? Last Reviewed Date: 2021 ?? The [employer]. All rights reserved. This information is not intended as a substitute for professional medical care. Always follow your healthcare professional's instructions. ?? * Event Display: Hemodynamic Procedure Report Authored Date: History and physical note * Event Display: History and Physical Hospital Authored Date: Admission evaluation note * Dyana QUINTANA, Hilaria Gage: PERFORM, MODIFY, MODIFY, MODIFY Event Display: Admission Note Authored Date: Patient: ??TAYLOR SALAZAR ? Age:??49 Years?Sex:??Female?:??1975?? Chief Complaint/Reason for Consultation Chest pain with exertion. History of Present Illness The patient is a 49 year old female with history of asthma, anxiety,??depression, connective tissuedisease including Lupus, Sjogren's, GERD, DVT,?? hypertension, AIRAM on CPAP, obesity, prediabetes, vertigo, and??tobacco??use who was transferred from [facility] for??NSTEMI. The patient reports that she started to get intermittent chest pain starting last Saturday, which she attributed toanxiety as her mother was in the hospital or GERD.?? Despite taking clonazepam and famotidine,??Tums, she continued to have pain, which was worse with activity and became??severe on Saturday, when she noted that her blood??pressure was also elevated.?? She describes the pain as burning with no radiation.??She states??that on Saturday??her chest pain became??unbearable and she went to [facility].?She also reports palpitations, and diaphoresis.?She denies any shortness of breath, cough, fevers, nausea, abdominal pain at that time.??She reports feeling extremely fatigued. She reports a smoking history of 1/2 pack per day but no alcohol use.?? At [place], she??was found to have an elevated blood pressure of 167/94 and otherwise normal vital signs.? EKG showed mild nonspecific ST elevation in?? diffusely.?? Laboratory data was unremarkable except for mildly elevated transaminases, HS troponin??872.3->1129.7->4752. Chest x-ray was??nonacute. The patient was given nitro paste, ASA 162 mg?? and started on heparin infusion.?? The patient was seen by cardiology at [place] and also had an ECHO which showed LV ejection fraction of 60-65%, focal wall motion abnormality in the distal, lateral and apical wall and no gross pericardial effusion.?? The patient was felt to have ACS, although myopericarditis??is possible, though less likely.??The patient was also?? started on high intensity statin, and BB .?? Arrangements were made for transfer to [facility] for cardiac catheterization.? On arrival the patient is afebrile with normal??vital signs.?? The patient reports no chest painwith rest and <1/10 with activity.?? She??currently??has a??heparin??gtt infusion.?? EKG and labs are pending.?? The patient is admitted for further??management??of??NSTEMI. ?? Review of Systems Constitutional:??No weight loss, fever, chills, weakness or fatigue. Allergy/Immune: Denies any??Eczema or hives Eyes:??No visual loss, blurred vision, double vision or yellow sclera ENT:??No hearing loss, sneezing, congestion, runny nose or sore throat. Respiratory:??No shortness of breath, cough or sputum production. Cardiovascular:??Mild chest pain with activity. No palpitations or pedal edema. Gastrointestinal:??No anorexia, nausea, vomiting or diarrhea. No abdominal pain or blood in stool. Genitourinary:??No burning micturition. No urinary frequency or incontinence. Neurologic:??No headache, dizziness, syncope, unilateral weakness, ataxia, numbness or tingling in the extremities. No change in bowel or bladder control. Musculoskeletal:??No muscle pain, back pain, joint pain or stiffness. Hematologic/Lymphatics:??No bleeding or bruising. No painful lymph nodes. Skin:??No rash or itching. Endocrine:??No reports of sweating. No cold or heat intolerance. No polyuria or polydipsia. Psychiatric:??No depression or anxiety. Objective Vital Signs?? Temperature: 98 DegF (04/27/24 14:34:00) Temperature Route: Oral (04/27/24 14:34:00) Pulse Rate: 79 bpm (04/27/24 14:34:00) Respiratory Rate: 18 br/min (04/27/24 14:34:00) Systolic Blood Pressure: 117 mm Hg (04/27/24 14:34:00) Diastolic Blood Pressure: 77 mm Hg (04/27/24 14:34:00) Blood pressure sites: Arm, right (04/27/24 14:34:00) Mean Arterial Pressure: 90 mm Hg (04/27/24 14:34:00) Pulse Pressure: 40 mm Hg (04/27/24 14:34:00) Oxygen Saturation: 98 % (04/27/24 14:34:00) Mode of Delivery (Oxygen): Room air (04/27/24 14:34:00) Early Warning Score: 1 (04/27/24 18:16:02) ? Intake/Output? 04/27 14:17 04/27 07:00 04/26 07:00 04/25 07:00 04/24 07:00 ?? 04/27 20:07 04/27 20:07 04/27 06:59 04/26 06:59 04/25 06:59 Intake ?240 ?240 ?0 ?0 ?0 Output ?0 ?0 ?0 ?0 ?0 Net Total ?240 ?240 ?0 ?0 ?0 ? Urine Count ?1 ?1 ?0 ?0 ?0 ? Physical Exam Constitutional: Alert, in no distress. Mental Status: Oriented to person, place and time. Head: Normocephalic. Eyes: Pupils are equal, round and reactive to light. Extraocular muscles intact. Ear, Nose and Throat: Oropharynx clear, mucous membranes moist. Ears and nose without masses, lesions or deformities. Trachea midline. Neck: Supple, Full range of motion. Respiratory: Clear to auscultation. No wheezing, rales or rhonchi. Cardiovascular: S1 S2 regular. No murmurs, rubs or gallops. Gastrointestinal: Abdomen soft, non-tender, non-distended. Normal bowel sounds. No pulsatile mass.?? Genitourinary: No costovertebral angle tenderness. Neurologic: Cranial nerves II-XII grossly intact. No focal neurological deficits. Flexor plantar response. Moves all extremities spontaneously. Sensation intact bilaterally. Skin: No rashes or lesions. No petechiae or purpura.?? Musculoskeletal: No cyanosis or clubbing. No gross deformities. Normal range of motion. Heme/Lymphatics/Immun: Palpation of neck reveals no swelling or tenderness of neck nodes.?? Psychiatric: Normal mood and affect Assessment/Plan Assessment:??The patient is a 49 year old female with history of asthma, anxiety,??depression, connective tissue disease including Lupus, Sjogren's, GERD, DVT,??hypertension, AIRAM on CPAP, obesity, prediabetes, vertigo, and??tobacco??use who was transferred from [facility] for??NSTEMI. The patient reports that she started to get intermittent chest pain starting last Saturday, which she attributed to anxiety as her mother was in the hospital or GERD.??Despite taking clonazepam and famotidine,??Tums, she continued to have pain, which was worse with activity and became??severe on Saturday, when she noted that her blood??pressure was also elevated.??She describes the pain as burning withno radiation.??She states??that on Saturday??her chest pain became??unbearable and she went to [facility].?She also reports palpitations, and diaphoresis.?She denies any shortness ofbreath, cough, fevers, nausea, abdominal pain at that time.??She reports feeling extremely fatigued. She reports a smoking history of 1/2 pack per day but no alcohol use.??At [place], she??was found to have an elevated blood pressure of 167/94 and otherwise normal vital signs.? EKG showed mild nonspecific ST elevation in??diffusely.??Laboratory data was unremarkable except for mildly elevated transaminases, HS troponin??872.3->1129.7->4752. Chest x-ray was??nonacute. The patient was given nitro paste, ASA 162 mg??and started on heparin infusion.??The patient was seen by cardiology at [place] and also had an ECHO which showed LV ejection fraction of 60-65%, focal wall motion abnormality in the distal, lateral and apical wall and no gross pericardial effusion.??The patient was felt to have ACS, although myopericarditis??is possible, though less likely.??The patient was also??started on high intensity statin, and BB .??Arrangements were made for transfer to [facility] for cardiac catheterization.? On arrival the patient is afebrile with normal??vital signs.??The patient reports no chest pain with rest and <1/10 with activity.??She??currently??has a??heparin??gtt infusion.??EKG and labs are pending.??The patient is admitted for further??management??of??NSTEMI. ?? Hypertension (I10):?? NSTEMI (non-ST elevated myocardial infarction) (I21.4):?ACEI or ARB for LVSD:??ARB has been ordered ?Beta-Benita Ordered:??Beta-Benita Ordered ?Aspirin Ordered:??Aspirin Ordered ?Statin Ordered:??Statin Ordered 49 year old female with history of asthma, anxiety,??depression, connective tissue disease including Lupus, Sjogren's, GERD, DVT,??hypertension, AIRAM on CPAP, obesity, prediabetes, vertigo, and??tobacco??use who was transferred from [facility] for??NSTEMI. The patient reports that she started to get intermittent chest pain starting last Saturday which has gotten worse over the past week,prompting her to go to [facility]. ??In addition, she reports extreme fatigue, palpitations, and diaphoresis. EKG showed mild nonspecific ST elevation in??diffusely.??Laboratory data was unremarkable except for mildly elevated transaminases, HS troponin??872.3->1129.7->4752. Chestx-ray was??nonacute. The patient was given nitro paste, ASA 162 mg??and started on heparin infusion.??The patient was seen by cardiology at [place] and also had an ECHO which showed LV ejection fraction of 60-65%, focal wall motion abnormality in the distal, lateral and apical wall and no gross pericardial effusion.??The patient was felt to have ACS, although myopericarditis??is possible, though less likely.??The patient was also??started on high intensity statin, and BB .??Arrangements were made for transfer to [facility] for cardiac catheterization.?? On arrival the patient is afebrile with normal??vital signs.??The patient reports no chest pain with rest and <1/10 with activity.??She??currently??has a??heparin??gtt infusion.??EKG and labs are pending.??The patient is admitted for further??management??of??NSTEMI. -Continue telemetry. -Continue heparin gtt. -Continue ASA, Atorvastatin, metoprolol and losartan. -EKG prn chest pain. -Nitro SL prn chest pain. -NPO after midnight for cath tomorrow. ?? Discoid lupus (L93.0): Sjogren's syndrome (M35.00):?? Connective tissue disease (M35.9):?? Systemic lupus (M32.9):?? -Continue Hydroxychloroquine. ?? Anxiety (F41.9):?? Depression (F32.A):?? -Continue duloxetine, clonidine, amitriptyline, risperidone??and prn clonazepam. ?? Asthma (clinical diagnosis) (J45.909):?? -Continue Breo Ellipta, montelukast and prn albuterol. ?? Gastroesophageal reflux disease (GERD) (K21.9):?? -Continue PPI. and famotidine. ?? Migraines (G43.909):?? -Gets Ajovy??injections monthly. -prn sumatriptan. ?? Vertigo (R42):?? -Meclizine prn. ?? Prediabetes (R73.03):?? -Monitor glucose POC before meals and HS. -Cover meals with BETTIE. -Hypoglycemic ER measures. -Check HgbA1C. ?? AIRAM on CPAP (G47.33):?? -CPAP ordered. ?? History of DVT in adulthood (Z86.718):?? -No longer on anticoagulation for this. ? Tobacco use (Z72.0):?? -Counseled re quitting. -Nicotine patch ordered. ?? Diet:?? Cardiac diabetic. ? VTE Prophylaxis:??On heparin gtt. ?VTE Prophylaxis Assessment:??Excluded from VTE prophylaxis measure ?? Discharge Planning:?? -[facility]- NSTEMI, on heparin gtt, cath pending. ?? Code Status:??Full Code. ?Order Code Status:??Code Status Ordered ? Histories Allergies Allergies ?(Active and Proposed Allergies Only) NKA? (Severity: Unknown severity, Onset: Unknown) No Known Medication Allergies? (Severity: Unknown severity, Onset: Unknown) ? Past Medical History/Problem List Active Problems(22) Anxiety Asthma (clinical diagnosis) Chronic constipation Chronic urticaria De Quervain's tenosynovitis Depression Discoid lupus Family history of breast cancer in mother (in her 30's) Fibromyalgia syndrome Gastroesophageal reflux disease (GERD) Last pap smear 09/23/12 negative with negative HPV. Status post total vaginal hysterectomy, no further paps needed Lung nodules, bilateral Migraines Mixed urinary incontinence urge and stress (primarily urge) Obese class I Obstructive sleep apnea (AIRAM), on CPAP Sjogren's syndrome Small fiber neuropathy, bilateral legs Smoker, 5-10 cigarettes per day since age 16. Quit once for 2.5 years Subclinical hypothyroidism Systemic lupus Vertigo ? Past Surgical History Vaginal hysterectomy, cystoscopy: 12/24/13 Endometrial ablation - Novasure: 07/21/13 Revision repair ulnar collateral ligament metacarpophalangeal joint, left thumb (Surgery #2): 04/22/13 Removal of skin cysts from head (#4) and hand: 09/06/12 Laparoscopic cholecystectomy, done in [place]: 2006 tubal ligation, done in [place]: 08/23/98 Arthroscopy of right knee Scalp surgery #2 Surgery #1 on left thumb Scalp surgery #1 Scalp surgery #3 ? Social History Alcohol Details:??Use: Current. Details:??Use: Never. ??Frequency: 1-2 times per year. Employment/School Details:??Status: Unemployed. Exercise Details:??Regular exercise: No. Home/Environment Details:??Living situation: Home/Independent. ??Lives with: Children. Nutrition/Health Details:??Diet: Regular. Sexual Details:??Sexually involved in last 6 months: Yes. ??Sexual orientation: Heterosexual. ??Gender identity: Female. Substance Abuse Details:??Use: Never. Tobacco Details:??Use: 5-9 cigarettes (between 1/4 to 1/2 pack)/day in last 30 days. Details:??Started at age: 13 Years. Details:??Current every day smoker, Type: Cigarettes. ??Tobacco use times per day: half a box. ? Psychosocial History ? Family History Mother: Arthritis; Asthma; Cancer of breast; Depression; Diabetes mellitus type II; Glaucoma ?09-JAN-2014 07:27:07<$>; Heart disease; Hypertension Father: Hypertension Brother: Hypertension Sister: Asthma; Hypertension Brother: Hypertension Sister: Hypertension Son??(Red): Type 1 diabetes mellitus ? Medications Home Medications Acetaminophen (acetaminophen 500 mg oral tablet)?2?tab(s)?By Mouth?Every 8 hours?as needed? NEEDED FOR PAIN Albuterol (Ventolin HFA 108 mcg/inh inhalation aerosol with adapter)?2?puff(s)?Inhalation?Every 6 hours?as needed? NEEDED FOR WHEEZE OR FOR SHORTNESS OF BREATH amiTRIPTYLINE (amitriptyline 10 mg oral tablet)?1?tablet?By Mouth?Daily at bedtime Ammonium Lactate 12% (ammonium lactate 5% topical lotion)?1?chica?Topically?2 times a day?as needed?Dry Skin?for 14?Days?apply and rub in well Ascorbic Acid (Vitamin C)?By Mouth?Daily Budesonide-Formoterol (Symbicort 80mcg/4.5mcg Inhaler)?See Instructions?as needed?1 puff 2x per dayBRand name covered by hne?Wheezing/Shortness of Breath Calcium And Vitamin D Combination (Calcium 250 mg + Vitamin D 125 IU Tablet)?By Mouth?2 timesa day Clonazepam (clonazepam 0.5 mg oral tablet)?1?Milligram?By Mouth?3 times a day Clonidine (cloNIDine 0.1 mg oral tablet)?0.1?Milligram?1?tablet?By Mouth?Daily atbedtime Cyanocobalamin (cyanocobalamin 1000 mcg oral tablet)?1,000?Microgram?1?tablet?By Mouth?Daily Diclofenac Topical (diclofenac 1% topical gel)?See Instructions?APPLY TOPICALLY 4 TIMES A DAY, NEEDED NEUROPATHIC PAIN Duloxetine (duloxetine 30 mg oral enteric coated capsule)?1?capsule?30?Milligram?By Mouth?Daily?do not crush or chew Famotidine (famotidine 20 mg oral tablet)?1?tablet?By Mouth?2 times a day fremanezumab (Ajovy Autoinjector 225 mg/1.5 mL subcutaneous solution)?225?Milligram?Subcutaneous Injection?Every 28 days Hydrochlorothiazide (hydrochlorothiazide 25 mg oral tablet)?1?tablet?By Mouth?Daily Hydroxychloroquine (Plaquenil 200 mg oral tablet)?400?Milligram?2?tablet?By Mouth?Daily Lidocaine Topical (lidocaine 5% topical film)?1?patch(es)?Topically?Daily?as needed? NEEDED FOR PAIN MILD, REMOVE AFTER 12 HOURS Loratadine (loratadine 10 mg oral tablet)?1?tablet?By Mouth?2 times a day?for 30?Days Losartan (losartan 50 mg oral tablet)?1?tab(s)?By Mouth?Daily Meclizine (meclizine 25 mg oral tablet)?1?tab(s)?By Mouth?2 times a day?as needed? NEEDED FOR DIZZINESS mirabegron (Myrbetriq 50 mg oral tablet, extended release)?1?tab(s)?By Mouth?Daily?DO NOT CRUSH OR CHEW. Miscellaneous Rx (RIBOFLAVIN 400 MG TABLET)?1?tab(s)?By Mouth?Daily Miscellaneous Rx ([facility] VITAMIN B-12 500 MCG TAB)?1?tab(s)?By Mouth?Daily Montelukast (Singulair 10 mg oral tablet)?1?tab(s)?10?Milligram?By Mouth?Daily inPM Naratriptan (naratriptan 2.5 mg oral tablet)?1?tab(s)?2.5?Milligram?By Mouth?Daily?as needed?for migraine headache?may repeat dose once in 4 hours Ondansetron (ondansetron 8 mg oral tablet)?1?tab(s)?By Mouth?Daily?as needed? NEEDED FOR NAUSEA AND VOMITING Pregabalin (pregabalin 200 mg oral capsule)?1?capsule?200?Milligram?By Mouth?2 times a day Risperidone (risperiDONE 2 mg oral tablet)?TAKE 1 TABLET BY MOUTH EVERYDAY AT BEDTIME ? Inpatient Medications Medications (35) Active SCHEDULED: (18) Amitriptyline 10 mg Tablet (amitriptyline 10 mg oral tablet) ??10 mg, By Mouth, Daily at bedtime Ascorbic Acid 250 mg Tablet (Vitamin C 250 mg oral tablet) ??250 mg, By Mouth, Daily Aspirin 81 mg EC Tablet (Aspirin Tablet) ??81 mg, By Mouth, Daily Atorvastatin 80 mg Tablet (atorvastatin 80 mg oral tablet) ??80 mg, By Mouth, Daily at bedtime Breo Ellipta 100 mcg / 25 mcg Inhaler (Breo Ellipta 100 mcg-25 mcg Inhaler) ??1 puffs, Inhalation, Daily Calcium Citrate 315mg / Vit D 250IU (Calcium Citrate 315 mg + Vitamin D 250IU Tablet) ??315 mg 1 tablet, By Mouth, 2 times a day Duloxetine 30 mg Capsule (DULoxetine Capsule) ??30 mg, By Mouth, Daily Famotidine 20 mg Tablet (famotidine 20 mg oral tablet) ??20 mg, By Mouth, 2 times a day Hydroxychloroquine 200 mg Tablet (Plaquenil 200 mg oral tablet) ??200 mg, By Mouth, 2 times a day Loratadine 10 mg Tablet (loratadine 10 mg oral tablet) ??10 mg, By Mouth, Daily Losartan 50 mg Tablet (losartan 50 mg oral tablet) ??50 mg, By Mouth, Daily Metoprolol 25 mg XL Tablet (metoprolol 25 mg oral tablet, extended release) ??12.5 mg, By Mouth, Daily Montelukast 10 mg Tablet (Singulair 10 mg oral tablet) ??10 mg, By Mouth, Daily at bedtime NaCl 0.9% Flush 3ml (NaCL 0.9% Flush) ??3 mL, IV Push, Every 8 hours Pantoprazole 20 mg EC Tablet (pantoprazole 20 mg oral delayed release tablet) ??20 mg, By Mouth, Daily Pregabalin 50 mg Capsule (pregabalin 50 mg oral capsule) ??200 mg, By Mouth, 2 times a day Risperidone 1 mg Tablet (risperiDONE 1 mg oral tablet) ??2 mg, By Mouth, Daily at bedtime Vitamin B-12 ??1000 mcg Tablet (cyanocobalamin 1000 mcg oral tablet) ??1,000 mcg, By Mouth, Daily CONTINUOUS: (1) Heparin 25,000 units / 250 mL D5W premix 25,000 units [9 units/kg/hr] + D5%W Premixed IV 250 mL (Heparin 25,000 units in 250 mL Premix 25,000 units [9 units/kg/hr] + D5%W Premixed IV 250 mL) ??250 mL, IV Infusion, 9.13 mL/hr PRN: (16) Acetaminophen 325 mg Tablet (Acetaminophen Tablet) ??650 mg, By Mouth, Every 4 hours Albuterol 90mcg/Inhalation Inhaler HFA (Ventolin 90 mcg Inhaler) ??180 mcg 2 puffs, Inhalation, Every 4 hours Clonazepam 1 mg Tablet (clonazePAM 0.5 mg oral tablet) ??1 mg, By Mouth, 3 times a day Clonidine 0.1 mg Tablet (cloNIDine 0.1 mg oral tablet) ??0.1 mg, By Mouth, 3 times a day Cyclobenzaprine 10 mg Tablet (cyclobenzaprine 10 mg oral tablet) ??5 mg, By Mouth, Daily at bedtime Dextromethorphan-Guaifenesin 20 mg-200 mg/10 mL Liqu UD (Robitussin DM Liquid) ??10 mL, By Mouth, Every 4 hours Docusate Sodium 100 mg Capsule (Docusate Sodium Capsule) ??100 mg 1 capsule, By Mouth, 2 times a day Heparin 5000 units/mL Inj (1 mL) (Heparin Inj) ??6,000 units 1.2 mL, IV Push, Every 6 hours Heparin 5000 units/mL Inj (1 mL) (Heparin Inj) ??3,000 units 0.6 mL, IV Push, Every 6 hours Meclizine 12.5 mg Tablet (meclizine 12.5 mg oral tablet) ??25 mg, By Mouth, 2 times a day Melatonin 3 mg Tablet (Melatonin Tablet) ??3 mg, By Mouth, Daily at bedtime NaCl 0.9% Flush 3ml (NaCL 0.9% Flush) ??3 mL, IV Push, Every 8 hours Nitroglycerin 0.4 mg Sublingual Tablet (nitroglycerin 0.4 mg sublingual tablet) ??0.4 mg, Sublingual, Every 5 minutes Polyethylene Glycol 17 Gm Powder (MiraLax Powder) ??17 Gm 1 pack/packet, By Mouth, Daily Senna Tablet ??8.6 mg 1 tablet, By Mouth, 2 times a day Simethicone 80 mg Chewable Tablet (Simethicone Tablet) ??80 mg, Chew, 3 times a day ? Results Recent Labs BLOOD COUNT & DIFF WBC 7.3 k/mm3 ()?? 04/27/2024 17:22 RBC 4.38 m/mm3 ()?? 04/27/2024 17:22 Hgb 13.1 Gm/dL ()?? 04/27/2024 17:22 Hct 38.9 % ()?? 04/27/2024 17:22 MCV 88.8 femtoliters ()?? 04/27/2024 17:22 MCH 29.9 pg ()?? 04/27/2024 17:22 MCHC 33.7 g/dL ()?? 04/27/2024 17:22 Platelet Count 258 k/mm3 ()?? 04/27/2024 17:22 RDW-SD 42.9 femtoliters ()?? 04/27/2024 17:22 MPV 11.1 femtoliters ()?? 04/27/2024 17:22 Nucleated RBC (Automated) 0.0 #/100 WBC'S ()?? 04/27/2024 17:22 Abs. NRBC 0.0 k/mm3 ()?? 04/27/2024 17:22 ?? CARDIAC High Sensitivity Troponin (HSTnT) 396 ng/L (Critical)?? 04/27/2024 17:22 ?? CHEM GENERAL Sodium 134 mmol/L ()?? 04/27/2024 17:22 Potassium 4.2 mmol/L ()?? 04/27/2024 17:22 Chloride 98 mmol/L ()?? 04/27/2024 17:22 Bicarbonate Level 23 mmol/L ()?? 04/27/2024 17:22 Anion Gap 13 ()?? 04/27/2024 17:22 Glucose Level 111 mg/dL (High)?? 04/27/2024 17:22 BUN 10 mg/dL ()?? 04/27/2024 17:22 Creatinine-Blood 0.72 mg/dL ()?? 04/27/2024 17:22 Estimated GFR Creatinine 104 ML/MIN/1.73 M2 ()?? 04/27/2024 17:22 Calcium 10.0 mg/dL ()?? 04/27/2024 17:22 ?? URINE OTHER Est Creatinine Clearance 97.83 mL/min ()?? 04/27/2024 18:16 ? EKG study * Event Display: ECG 12-Lead Authored Date: Please click on pdf link to open report * Event Display: ECG 12-Lead Authored Date: Ventricular Rate: 81 BPM Atrial Rate: 81 BPM P-R Interval: 140 ms QRS Duration: 80 ms Q-T Interval: 382 ms QTC Calculation(Bazett): 443 ms P Caney: 28 degrees R Caney: 33 degrees T Caney: 51 degrees Normal sinus rhythm Nonspecific ST abnormality Abnormal ECG When compared with ECG of 28-APR-2024 12:40, No significant change was found Confirmed by LISA HARDWICK MD ([id number]) on 04/29/2024 11:51:44 AM Middleton: LISA HARDWICK MD * Event Display: EKG Authored Date: * Event Display: EKG Authored Date: * Event Display: ECG 12-Lead Authored Date: Please click on pdf link to open report * Event Display: ECG 12-Lead Authored Date: Ventricular Rate: 86 BPM Atrial Rate: 86 BPM P-R Interval: 146 ms QRS Duration: 82 ms Q-T Interval: 406 ms QTC Calculation(Bazett): 485 ms P Caney: 33 degrees R Caney: 59 degrees T Caney: 49 degrees Normal sinus rhythm ST segment elevated in anterior, inferior, and lateral leads: consider infarction vs. pericarditis Prolonged QT Abnormal ECG When compared with ECG of 28-APR-2024 12:40, No significant change was found Confirmed by Terrence Priest ([id number] on 04/28/2024 2:11:54 PM Middleton: Terrence Priest * Event Display: ECG 12-Lead Authored Date: Please click on pdf link to open report * Event Display: ECG 12-Lead Authored Date: Ventricular Rate: 81 BPM Atrial Rate: 81 BPM P-R Interval: 146 ms QRS Duration: 82 ms Q-T Interval: 410 ms QTC Calculation(Bazett): 476 ms P Caney: 30 degrees R Caney: 54 degrees T Caney: 51 degrees Critical Test Result: STEMI Age and gender specific ECG analysis Normal sinus rhythm ST elevation consider inferolateral injury or acute infarct ACUTE [place] / STEMI Abnormal ECG When compared with ECG of 28-APR-2024 07:22, Nonspecific T wave abnormality no longer evident in Lateral leads Confirmed by Terrence Priest ([id number]) on 04/28/2024 12:59:53 PM [place]: Terrence Priest Cardiology * Event Display: Cardiac Rhythm Strips Authored Date: * Event Display: Cardiac Rhythm Strips Authored Date: Hospital Progress note * Rene Gillette RN: PERFORM, SIGN, VERIFY Event Display: Progress Note Hospital Authored Date: [id number] Patient: TAYLOR SALAZAR Age: 49 years Sex: Female : 1975 Associated Diagnoses: None Author: Rene Gillette RN Findings Nursing Data Vital Signs : VITAL SIGNS SECTION 04/29/2024 7:26 EDT Early Warning Score 3.00 04/29/2024 7:26 EDT Temperature 97.6 DegF Temperature Route Oral Pulse Rate 82 bpm Respiratory Rate 17 br/min Systolic Blood Pressure 118 mm Hg Diastolic Blood Pressure 80 mm Hg Blood pressure sites Arm, right Mean Arterial Pressure 93 mm Hg Pulse Pressure 38 mm Hg Oxygen Saturation 97 % Mode of Delivery (Oxygen) Room air . Narrative/Incidental 1400 Patient had cardiac cath yesterday 04/28 JOHN PAUL to LAD placed on Brillenta, no copay per Pharmacy.Right groin site no active bleeding moist and puncture open clot present. Resdressed with DSD and tegaderm. Patient walked to bathroom and further with Cardiac rehab,see note. Post ambulation dressing dry and intact. Patient to follow up with cardiology outpatient. Discharge paperwork reviewed withpatient by Syl Cooper RN. Picked up by transportation via wheelchair and to roller picker medication at [facility]. Peripheral IV removed intact. . Discharge Information Case Management Discharge Plan : Case Management Discharge Plan Data 04/29/2024 14:05 EDT Discharge Level of Care at Discharge Home/Longterm/Foster Care * Jose Alfredo MEHTA, Lashae: PERFORM Event Display: Progress Note Hospital Authored Date: [id number] Patient: ??TAYLOR SALAZAR ? Age:??49 Years?Sex:??Female?:??1975?? Subjective No acute overnight events Patient seen and evaluated bedside??just??prior to going to cath, denied any chest pain Cath done???showed severe??mid LAD lesion???JOHN PAUL to??LAD, was loaded??with ticagrelor Review of Systems -ve except as noted above Objective Vital Signs?? Temperature: 96.8 DegF (04/28/24 13:54:00) Temperature Route: Temporal (04/28/24 13:54:00) Pulse Rate: 77 bpm (04/28/24 13:54:00) Respiratory Rate: 18 br/min (04/28/24 13:54:00) Systolic Blood Pressure: 121 mm Hg (04/28/24 13:54:00) Diastolic Blood Pressure:??85 mm Hg??High (04/28/24 13:54:00) Blood pressure sites: Arm, left (04/28/24 13:54:00) Mean Arterial Pressure: 97 mm Hg (04/28/24 13:54:00) Pulse Pressure: 36 mm Hg (04/28/24 13:54:00) Oxygen Saturation: 100 % (04/28/24 13:54:00) Mode of Delivery (Oxygen): Room air (04/28/24 13:54:00) Early Warning Score: 3 (04/28/24 13:55:07) ? Intake/Output? 04/27 14:17 04/28 07:00 04/27 07:00 04/26 07:00 04/25 07:00 ?? 04/28 15:56 04/28 15:56 04/28 06:59 04/27 06:59 04/26 06:59 Intake ?726.0 ?240 ?486.0 ?0 ?0 Output ? 1350 ?200 ? 1150 ?0 ?0 Net Total ? -624.0 ? 40 ? -664.0 ?0 ?0 ? Urine Count ?1 ?0 ?1 ?0 ?0 ? Physical Exam Constitutional: Alert, in no distress. Respiratory: Clear to auscultation. No wheezing, rales or rhonchi. Cardiovascular: S1 S2 regular. No murmurs, rubs or gallops. Gastrointestinal: Abdomen soft, non-tender, non-distended. Normal bowel sounds.?? Neurologic: Cranial nerves II-XII grossly intact. No focal neurological deficits.?? Results Recent Labs BLOOD COUNT & DIFF WBC 7.1 k/mm3 ()?? 04/28/2024 01:03 RBC 4.03 m/mm3 (Low)?? 04/28/2024 01:03 Hgb 12.0 Gm/dL ()?? 04/28/2024 01:03 Hct 36.1 % ()?? 04/28/2024 01:03 MCV 89.6 femtoliters ()?? 04/28/2024 01:03 MCH 29.8 pg ()?? 04/28/2024 01:03 MCHC 33.2 g/dL ()?? 04/28/2024 01:03 Platelet Count 240 k/mm3 ()?? 04/28/2024 01:03 RDW-SD 43.1 femtoliters ()?? 04/28/2024 01:03 MPV 11.6 femtoliters ()?? 04/28/2024 01:03 Nucleated RBC (Automated) 0.0 #/100 WBC'S ()?? 04/28/2024 01:03 Abs. NRBC 0.0 k/mm3 ()?? 04/28/2024 01:03 ?? CARDIAC High Sensitivity Troponin (HSTnT) 396 ng/L (Critical)?? 04/27/2024 17:22 ?? CHEM GENERAL Sodium 135 mmol/L ()?? 04/28/2024 01:03 Potassium 3.9 mmol/L ()?? 04/28/2024 01:03 Chloride 100 mmol/L ()?? 04/28/2024 01:03 Bicarbonate Level 22 mmol/L ()?? 04/28/2024 01:03 Anion Gap 13 ()?? 04/28/2024 01:03 Glucose Level 136 mg/dL (High)?? 04/28/2024 01:03 Hemoglobin A1C (Monitoring) 5.8 % (High)?? 04/27/2024 21:27 BUN 10 mg/dL ()?? 04/28/2024 01:03 Creatinine-Blood 0.72 mg/dL ()?? 04/28/2024 01:03 Estimated GFR Creatinine 104 ML/MIN/1.73 M2 ()?? 04/28/2024 01:03 Calcium 9.6 mg/dL ()?? 04/28/2024 01:03 ALT (SGPT) 81 units/L (High)?? 04/27/2024 21:27 ?? COAG APTT 69.6 seconds (High)?? 04/28/2024 07:28 ?? LIPID STUDIES Cholesterol 152 mg/dL ()?? 04/28/2024 01:03 Triglycerides 126 mg/dL ()?? 04/28/2024 01:03 HDL Cholesterol 41 mg/dL ()?? 04/28/2024 01:03 LDL Cholesterol 86 mg/dL ()?? 04/28/2024 01:03 Non HDL Cholesterol 111 mg/dL ()?? 04/28/2024 01:03 ?? URINE OTHER Est Creatinine Clearance 97.83 mL/min ()?? 04/27/2024 18:16 ? Assessment/Plan Assessment:??patient is a 49 year old female with history of asthma, anxiety,??depression, connective tissue disease including Lupus, Sjogren's, GERD, DVT,??hypertension, AIRAM on CPAP, obesity, prediabetes, vertigo, and??tobacco??use who was transferred from [facility] for??NSTEMI. ?? NSTEMI (non-ST elevated myocardial infarction) (I21.4):??Presented to [facility] for NSTEMI??for??intermittent chest pain since 1 week??along with??fatigue, palpitations and diaphoresis EKG with nonspecific ST elevations diffusely Troponin [id number] Chest x-ray showed no acute abnormality Echo showed??an EF of 60 to 65%,focal wall motion abnormality in the distal, lateral and apical wall and no gross pericardial effusion Was started on heparin drip??and transferred to [facility]??for cardiac cath Plan Cardiology was consulted???s/p??cardiac cath 04/28- showed severe??mid LAD lesion???JOHN PAUL to??LAD, wasloaded??with ticagrelor Continue??aspirin??indefinitely Continue??ticagrelor??90 mg p.o. twice daily??for at least 12 months post PCI Continue statin, metoprolol, losartan Follow-up with cardiology as an outpatient ?ACEI or ARB for LVSD:??ARB has been ordered ?Beta-Benita Ordered:??Beta-Benita Ordered ?Aspirin Ordered:??Aspirin Ordered ?Statin Ordered:??Statin Ordered ?Cardiac Rehabilitation (Phase I):??Inpatient Consultation Ordered ?? Asthma (clinical diagnosis) (J45.909):??Continue Breo Ellipta, montelukast and prn albuterol. ? Depression (F32.A):??Continue??duloxetine, clonidine, amitriptyline, risperidone??and prn clonazepam. ?? 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 Gastroesophageal reflux disease (GERD) (K21.9):??Continue PPI. and famotidine. ?? Migraines (G43.909):??Gets Ajovy??injections monthly. -prn sumatriptan. ? Vertigo (R42):??Meclizine prn. ?? Prediabetes (R73.03):??A1c at 5.8 Monitor pocs, ISS, hypoglycemia protocol ?? AIRAM on CPAP (G47.33):??CPAP ordered ?? Discharge Planning:? Ongoing Medical Necessity:??Likely can be DC tomorrow,??please discuss with cardiology before discharge ?? Code Status:??Full code ?Order Code Status:??Code Status Ordered ? * Terrence Pa RN: PERFORM, SIGN, VERIFY Event Display: Progress Note Hospital Authored Date: [id number] Patient: TAYLOR SALAZAR Age: 49 years Sex: Female : 1975 Associated Diagnoses: None Author: Terrence Pa RN Findings Nursing Data Vital Signs : VITAL SIGNS SECTION 04/27/2024 14:34 EDT Temperature 98.0 DegF Temperature Route Oral Pulse Rate 79 bpm Respiratory Rate 18 br/min Systolic Blood Pressure 117 mm Hg Diastolic Blood Pressure 77 mm Hg Blood pressure sites Arm, right Mean Arterial Pressure 90 mm Hg Pulse Pressure 40 mm Hg Oxygen Saturation 98 % Mode of Delivery (Oxygen) Room air . Evaluation pt is aox4. independent. ra. tele sr. came [facility] hep drip, dc on admission and restarted (see cis mar). denies sob, cp, nv. potential cath tmr. complained of headache and recieved tylenol. plan of care ongoing. callbell left within reach.. Patient Care team information Care Team Personnel Name: Terrence Pa RN Position: S RN Member Role: Primary Care Nurse Name: Broderick Kidd MD Position: [facility] Resident Member Role: PCP Address: Address: [address] [place] [address]- Care Team Related Persons Name: MARIO GERARD Address: home [address] [place] [address] Name: CARI GARCÍA Address: home [address] [address] Name: NOELLE MAY
--- OUTSIDE RECORDS SUMMARY | 2024-09-07 13:57 | XMS_ITS | Continuity of Care Document ---
Author Organization [facility] [employer] [place] Address [address], [address] [place] [address]- Care Team Providers Care Cashier Ticket Selling Name Role Phone Otilia MEHTA, Reggie Primary Care Physic astrid Encounter [facility] Date(s): 10/12/19 - 10/19/19 [facility] [employer] [facility] [address], [address] [place] [address]- Encounter Diagnosis Mixed urinary incontinence urge and stress (primarily urge)(Discharge Diagnosis) - 10/12/19 Fibromyalgia syndrome(Discharge Diagnosis) - 10/12/19 Sjogren's syndrome(Discharge Diagnosis) - 10/12/19 Attending Physician: Justine Judd MD Referring Physician: Otilia MEHTA, Reggie Allergies, [...] Inhalation, 2 times a day, Prescribed by Partition Assembly Machine Operator., # 1 each, Refills 11, Tot. Refills 11, Maintenance, 03/13/18 11:00:50 EDT, Inhaler, Route to Pharmacy Electronically, [id number], [facility]/pharmacy #[id number] Start Date: 03/13/18 Status: Ordered albuterol 0.083% inhalation solution 3 mL = 2.5 mg, Neb, Every 6 hours, PRN Wheezing/Shortness of Breath, # 360 mL, 2 Refills, Maintenance, 12/15/18 15:28:57 EST Start Date: 12/15/18 Status: Ordered Lety Allergy 60 mg oral tablet 3 tablet = 180 mg, By Mouth, Daily, Prescribed by Rail Transit Operator in [place]., # 90 tablet, 0 Refills, Maintenance, 02/16/16 14:46:50, Tablet Start Date: 02/16/16 Stop Date: 03/17/16 Status: Ordered amitriptyline 10 mg oral tablet 10 mg, 1, tablet, By Mouth, Daily at bedtime, # 30 tablet, Refills 5, Tot. Refills 5, Maintenance, 06/30/19 15:15:49 EDT, Route to Pharmacy Electronically, [id number], [facility]/pharmacy #[id number] Start Date: 06/30/19 Status: Ordered [...] 10/14/19 17:13:14 EST, Route to Pharmacy Electronically, [id number], [facility]/pharmacy #[id number], 165.1, cm, 10/14/19 11:26:54 EST, [...] BY MOUTH DAILY,INSTR:DO NOT CRUSH OR CHEW, [facility]/pharmacy #[id number] Start Date: 07/07/19 Status: Ordered Nebulizer/Compressor See [...] 14:01:17 EST Start Date: 09/22/19 Status: Ordered senna 17 mg oral tablet 2 tablet = 34 mg, By Mouth, Daily, PRN as needed for constipation, for 30 days, with plenty of water, # 60 tablet, 5 Refills, Acute 11/01/19 11:29:50 EST, 05/05/19 11:29:50 EDT Start Date: 05/05/19 Stop Date: 11/01/19 Status: Ordered Singulair 10 mg oral tablet [...] apnea (AIRAM ), on CPAP(Confirmed) Active *BHN/BHCP/Leodan Rich-[phone]/Health nursing home, active care coordination(Confirmed) Active Sjogren's syndrome(Confirmed) Active Smoker, 5-10 cigarettes per day since age 16. Quit once for 2.5 years(Confirmed) Active Systemic lupus(Confirmed) Active Chronic urticaria(Confirmed) Active Vertigo(Confirmed) Active Diagnosis Diagnosis Type Effective Dates Health Status Clinical Service Informant Mixed urinary incontinence urge and stress (primarily urge) Discharge Diagnosis 10/12/19 Fibromyalgia syndrome Discharge Diagnosis 10/12/19 Sjogren's syndrome Discharge Diagnosis 10/12/19 Vital Signs Most recent to oldest [Reference Range]: 1 Height 165.10 cm (10/12/19 1:59 PM) Weight 88 kg (10/12/19 1:59 PM) Body Mass Index [18.5-24.99] 32.28 *>HHI* (10/12/19 1:59 PM) Blood Pressure [90-138/55-84 mm Hg] 123/ 81mm Hg (10/12/19 1:59 PM) Blood pressure sites Arm, right (10/12/19 1:59 PM) Weight Obtained Via Standing scale (10/12/19 1:59 PM) Social History Social History Type Response Tobacco Started at age: 13 Y ears. Sex Female
--- OUTSIDE RECORDS SUMMARY | 2024-09-07 13:57 | XMS_ITS | Continuity of Care Document ---
Author Organization [facility] ([facility]3] Adult Medicine Address [address] [place] [address]- Care Team Providers Care Maxillofacial Surgeon Name Role Phone Broderick Kidd MD Primary Care Physician Encounter [facility] Date(s): 12/26/23 - 01/25/24 [facility]3] Adult Medicine [address] [place] [id number] Allergies, Adverse Reactions, Alerts [...] 04/25/23 Given tetanus/diphtheria/pertussis, acel(Tdap) 3 01/28/13 Given [id number] bivalent booster vax 01/03/23 Recorded SARS-CoV-2 (COVID-19) [...] 07/05/08 Recor ded 1Result Comment: received at [facility] on [facility] [place] 2Admin Note: flulaval vis given vis date 05/05/2012 3Admin Note: VIS GIVEN VIS DATE 11/27/2011 4Result Comment: received 2nd dose at [facility] 5Result Comment: received at [facility] Medications acetaminophen 500 mg oral tablet 2 tablet, By Mouth, Every 8 hours, PRN NEEDED FOR PAIN, # 100 tablet, 3 Refills, Maintenance, 10/11/23 11:48:00 EST, [facility]/pharmacy #[id number], 165, cm, 09/27/23 10:21:00 EST, Height, 100, kg, 04/04/23 16:15:00 EDT, Dry Weight Start Date: 10/11/23 Status: Ordered albuterol 0.083% inhalation solution 1 vials, Inhalation, Every 6 hours, PRN NEEDED FOR WHEEZING/SHORTNESS OF BREATH, # 300 mL, 2 Refills, Maintenance, 10/19/22 10:14:00 EST, [facility] STORE [id number], 165.1, cm, 09/18/22 9:21:00 EST, Height Start Date: 10/19/22 Status: Ordered albuterol CFC free 90 mcg/inh inhalation aerosol 2, puffs, Inhalation, Every 6 hours, PRN, # 1 each, Refills 3, Tot. Refills 3, Maintenance, 10/11/23 11:53:00 EST, Route to Pharmacy Electronically, [id number], [facility]/pharmacy#[id number], 165, cm, 09/27/23 10:21:00 EST, Height, 100,... Start Date: 10/11/23 Status: Ordered [id number]-[id number]-Zspf 300 mg oral capsule 1 capsule, By Mouth, 2 times a day, # 60 capsule, 5 Refills, Maintenance, 05/12/23 20:20:00 EDT, [facility]/pharmacy #[id number], 165, cm, 05/08/23 10:12:00 EDT, Height, 100, kg, 04/04/23 16:15:00 EDT, Dry Weight Start Date: 05/12/23 Status: Ordered amitriptyline 10 mg oral tablet 1, tablet, By Mouth, Daily at bedtime, # 90 tablet, Refills 1, Tot. Refills 1, Maintenance, 12/27/23 16:05:00 EST, [id number] 165, cm, 10/11/23 14:32:00 EST, Height, 100, kg, 04/04/23 16:15:00 EDT, Dry Weight Start Date: 12/27/23 Status: Ordered ammonium lactate 5% topical lotion 1 application, Topically, 2 times a day, PRN Dry Skin, apply and rub in well, # 120 Gm, 0 Refills, Maintenance, 12/05/22 17:09:00 EST, Lotion, [facility]/pharmacy #[id number], Partial fill upon [...] 11/23/22 9:13:00 EST, Route to Pharmacy Electronically, [facility]/pharmacy #[id number], Partial fill upon [...] Gm, 2 Refills, Maintenance, 01/20/24 9:29:00 EDT, [facility] STORE [id number], 25, APPLY TOPICALLY 4 TIMES A DAY, NEEDED NEUROPATHIC PAIN, 165, cm, 10/11/23 14:32:00 EST, Height... Start Date: 01/20/24 Status: Ordered famotidine 20 mg oral tablet 1, tablet, By Mouth, 2 times a day, # 180 tablet, Refills 1, Tot. Refills 1, Maintenance, 09/03/23 15:24:00 EDT, Route to Pharmacy Electronically, [facility]/pharmacy #[id number], 165, cm, 06/03/23 9:52:00 EDT, Height, 100, kg, 04/04/23 16:15:00 EDT, Dry Weight Start Date: 09/03/23 Status: Ordered hydrochlorothiazide 25 mg oral tablet 1, tablet, By Mouth, Daily, # 90 tablet, Refills 1, Tot. Refills 1, Maintenance, 12/23/23 17:10:00 EST, Route to Pharmacy Electronically, [facility]/pharmacy #[id number], 165, cm, 10/11/23 14:32:00 [...] Refills, Maintenance, 02/05/23 23:52:00 EDT, [id number], 30, APPLY 1 PATCH TOPICALLY DAILY,X30 DAYS NEEDED FOR PAIN MILD, REMOVE AFTER 12 HOURS, 168,... Start Date: 02/05/23 Status: Ordered loratadine 10 mg oral tablet 1, tablet, By Mouth, 2 times a day, # 60 tablet, Refills 0, Maintenance, 12/31/22 14:48:00 EST, Route to Pharmacy Electronically, [facility], 165.1, cm, 12/05/22 15:21:00 EST, Height Start Date: 12/31/22 Stop Date: 01/30/23 Status: Ordered losartan 50 mg oral tablet 50 mg, 1, tablet, By Mouth, Daily, # 90 tablet, Refills 1, Tot. Refills 1, Maintenance, 10/02/23 13:31:00 EST, Route to Pharmacy Electronically, [facility]/pharmacy #[id number], Partial fill upon patient request if the prescription is for a schedule II opioid drug... Start Date: 10/02/23 Status: Ordered meclizine 25 mg oral tablet 1 tablet, By Mouth, 2 times a day, PRN NEEDED FOR DIZZINESS, # 60 tablet, 0 Refills, Maintenance, 05/30/23 16:12:00 EDT, [facility], 165, cm, 05/22/23 9:22:00 EDT, Height, 100, kg, 04/04/23 16:15:00 EDT, Dry Weight Start Date: 05/30/23 Status: Ordered Myrbetriq 50 mg oral tablet, extended release 1 tablet, By Mouth, Daily, DO NOT CRUSH OR CHEW., # 90 tablet, 1 Refills, Maintenance, 09/19/23 16:25:00 EST, [facility]/pharmacy #[id number], 165, cm, 09/12/23 13:12:00 EST, Height, 100, kg, 04/04/23 16:15:00 EDT, Dry Weight Start Date: 09/19/23 Status: Ordered naratriptan 2.5 mg oral tablet 1 tablet = 2.5 mg, By Mouth, Daily, PRN for migraine headache, may repeat dose once in 4 hours, # 18 tablet, 1 Refills, Acute 07/07/24 15:56:00 EDT, 07/07/23 15:56:00 EDT, Tablet, [facility]/pharmacy #[id number],Partial fill upon patient request if the prescripti... Start Date: 07/07/23 Stop Date: 07/07/24 Status: Ordered ondansetron 8 mg oral tablet 1 tablet, By Mouth, Daily, PRN NEEDED FOR NAUSEA AND VOMITING, # 30 tablet, 0 Refills, Maintenance, 09/23/23 10:53:00 EST, [facility] STORE [facility], 165, cm, 09/12/23 13:12:00 EST, Height, 100, [...] 5 Refills, Maintenance, 11/22/22 14:08:00 EST, Capsule, [facility]/pharmacy #[id number], Partial fill upon patient request if the prescription is for a schedule II opioid drug., 165.1, cm, 11/22/22 13:38:0... Start Date: 11/22/22 Status: Ordered riboflavin 400 mg oral capsule 1 capsule = 400 mg, By Mouth, Daily, # 100 capsule, 2 Refills, Maintenance, 05/12/23 20:23:00 EDT, Capsule, [facility]/pharmacy #[id number], 165, cm, 05/08/23 [...] Replace Required Details Aerosol, Route toPharmacy Electronically, [id number] Start Date: 10/11/23 Status: Ordered Ventolin 90 [...] Active 1Follows with therapist and psychiatrist at [place] per previous notes 2PFTs show no obstruction. However has h/o asthma. Ct chest in 07/27 and pulm note says restrictive lung disease mild similiar to findings on PFT 3Follows with therapist and psychiatrist at [place] per previous notes 4Sleep study in 2016. [...] Team Personnel Name: Broderick Kidd MD Position: [facility] Resident Member Role: PCP Address: Address: [address] [place] [address] [place] [address]- Care Team Related Persons Name: MARIO GERARD Address: home [address] [place] [address] Name: CARI GARCÍA Address: [address], [place] [address] Name: NOELLE MAY
--- OUTSIDE RECORDS SUMMARY | 2024-09-07 13:57 | XMS_ITS | Continuity of Care Document ---
Author Organization [facility] Address [address] [place] [id number]- Care Team Providers Care Jet Man Name Role Phone Broderick Kidd MD Primary Care Physician Encounter [facility] Date(s): 09/09/23 - 10/09/23 [facility] [address] [place] [id number] Allergies, Adverse Reactions, Alerts No Known Allergies [...] 04/25/23 Given tetanus/diphtheria/pertussis, acel(Tdap) 3 01/28/13 Given [id number] bivalent booster vax 01/03/23 Recorded SARS-CoV-2 (COVID-19) [...] 07/05/08 Recor ded 1Result Comment: received at [facility] on [facility] in [place] 2Admin Note: flulaval vis given vis date 05/05/2012 3Admin Note: VIS GIVEN VIS DATE 11/27/2011 4Result Comment: received 2nd dose at [facility] 5Result Comment: received at [facility] Medications acetaminophen 500 mg oral tablet 2 tablet, By Mouth, Every 8 hours, PRN NEEDED FOR PAIN, # 100 tablet, 3 Refills, Maintenance, 04/26/23 23:48:00 EDT, [facility] STORE [id number], 165, cm, 04/25/23 8:59:00 EDT, Height, 100, kg, 04/04/23 16:15:00 EDT, Dry Weight Start Date: 04/26/23 Status: Ordered albuterol 0.083% inhalation solution 1 vials, Inhalation, Every 6 hours, PRN NEEDED FOR WHEEZING/SHORTNESS OF BREATH, # 300 mL, 2 Refills, Maintenance, 10/19/22 10:14:00 EST, [id number], 165.1, cm, 09/18/22 9:21:00 EST, Height Start Date: 10/19/22 Status: Ordered Obhlq-Nprkuh-Zlqu 300 mg oral capsule 1 capsule, By Mouth, 2 times a day, # 60 capsule, 5 Refills, Maintenance, 05/12/23 20:20:00 EDT, [facility]/pharmacy #[id number], 165, cm, 05/08/23 10:12:00 EDT, Height, 100, kg, 04/04/23 16:15:00 EDT, Dry Weight Start Date: 05/12/23 Status: Ordered amitriptyline 10 mg oral tablet 1, tablet, By Mouth, Daily at bedtime, # 90 tablet, Refills 0, Maintenance, 08/13/23 13:34:00 EDT, Route to Pharmacy Electronically, [facility] STORE [id number], 165, cm, 06/03/23 9:52:00 EDT, Height, 100, kg, 04/04/23 16:15:00 EDT, Dry Weight Start Date: 08/13/23 Status: Ordered ammonium lactate 5% topical lotion 1 application, Topically, 2 times a day, PRN Dry Skin, apply and rub in well, # 120 Gm, 0 Refills, Maintenance, 12/05/22 17:09:00 EST, Lotion, [facility]/pharmacy #[id number], Partial fill upon patient request ifthe [...] 11/23/22 9:13:00 EST, Route to Pharmacy Electronically, [facility]/pharmacy #[id number], Partial fill upon patient request if [...] Gm, 2 Refills, Maintenance, 07/16/23 6:00:00 EDT, [facility] STORE 56253, 25, APPLY TOPICALLY 4 TIMES A DAY, NEEDED NEUROPATHIC PAIN, 165, cm, 06/03/23 9:52:00 EDT, Height,... Start Date: 07/16/23 Status: Ordered famotidine 20 mg oral tablet 1, tablet, By Mouth, 2 times a day, # 180 tablet, Refills 1, Tot. Refills 1, Maintenance, 09/03/23 15:24:00 EDT, Route to Pharmacy Electronically, [facility]/pharmacy #[id number], 165, cm, 06/03/23 9:52:00 EDT, Height, 100, kg, 04/04/23 16:15:00 EDT, Dry Weight Start Date: 09/03/23 Status: Ordered hydrochlorothiazide 25 mg oral tablet 25 mg, 1, tablet, By Mouth, Daily, # 30 tablet, Refills 2, Tot. Refills 2, Maintenance, 09/27/23 11:20:00 EST, Route to Pharmacy Electronically, [facility]/pharmacy #[id number], Partial fill upon patient request if [...] patch, 0 Refills, Maintenance, 02/05/23 23:52:00 EDT, [facility] STORE 32542, 30, APPLY 1 PATCH TOPICALLY DAILY,X30 DAYS NEEDED FOR PAIN MILD, REMOVE AFTER 12 HOURS, 168,... Start Date: 02/05/23 Status: Ordered loratadine 10 mg oral tablet 1, tablet, By Mouth, 2 times a day, # 60 tablet, Refills 0, Maintenance, 12/31/22 14:48:00 EST, Route to Pharmacy Electronically, [facility] STORE [id number], 165.1, cm, 12/05/22 15:21:00 EST, Height Start Date: 12/31/22 Stop Date: 01/30/23 Status: Ordered losartan 50 mg oral tablet 50 mg, 1, tablet, By Mouth, Daily, # 90 tablet, Refills 1, Tot. Refills 1, Maintenance, 10/02/23 13:31:00 EST, Route to Pharmacy Electronically, [facility]/pharmacy #[id number], Partial fill upon patient request if the prescription is for a schedule II opioid drug... Start Date: 10/02/23 Status: Ordered meclizine 25 mg oral tablet 1 tablet, By Mouth, 2 times a day, PRN NEEDED FOR DIZZINESS, # 60 tablet, 0 Refills, Maintenance, 05/30/23 16:12:00 EDT, [facility] STORE 22000, 165, cm, 05/22/23 9:22:00 EDT, Height, 100, kg, 04/04/23 16:15:00 EDT, Dry Weight Start Date: 05/30/23 Status: Ordered Myrbetriq 50 mg oral tablet, extended release 1 tablet, By Mouth, Daily, DO NOT CRUSH OR CHEW., # 90 tablet, 1 Refills, Maintenance, 09/19/23 16:25:00 EST, [facility]/pharmacy #[id number], 165, cm, 09/12/23 13:12:00 EST, Height, 100, kg, 04/04/23 16:15:00 EDT, Dry Weight Start Date: 09/19/23 Status: Ordered naratriptan 2.5 mg oral tablet 1 tablet = 2.5 mg, By Mouth, Daily, PRN for migraine headache, may repeat dose once in 4 hours, # 18 tablet, 1 Refills, Acute 07/07/24 15:56:00 EDT, 07/07/23 15:56:00 EDT, Tablet, [facility]/pharmacy #[id number],Partial fill upon patient request if the prescripti... Start Date: 07/07/23 Stop Date: 07/07/24 Status: Ordered ondansetron 8 mg oral tablet 1 tablet, By Mouth, Daily, PRN NEEDED FOR NAUSEA AND VOMITING, # 30 tablet, 0 Refills, Maintenance, 09/23/23 10:53:00 EST, [facility], 165, cm, 09/12/23 13:12:00 EST, Height, 100, [...] 5 Refills, Maintenance, 11/22/22 14:08:00 EST, Capsule, [facility]/pharmacy #[id number], Partial fill upon patient request if [...] per day BRand name covered by [facility], # 1 each, Refills 6, Tot. Refills 6, Maintenance, 09/29/21 9:04:00 EST, Instructions Replace Required Details Aerosol, Route to Pharmacy Electronically, [id number]... Start Date: 09/29/21 Status: Ordered Ventolin 90 mcg Inhaler 2, puffs, Inhalation, 4 times a day, PRN, Refills 0, Maintenance, 11/26/18 9:56:44 EST Start Date: 11/26/18 Status: Ordered Vitamin B-12 500 mcg oral tablet 1 tablet = 500 mcg, By Mouth, Daily, # 90 tablet, 1 Refills, Maintenance, 09/11/23 9:07:00 EST, Tablet, [facility]/pharmacy #[id number], Partial fill upon patient request if the prescription is for a schedule II opioid drug., 165, cm, 06/03/23 9:52:00 EDT, Height,... Start Date: 09/11/23 Stop Date: 03/09/24 Status: Ordered Vitamin B12 500 mcg oral tablet 1 tablet = 500 mcg, By Mouth, Daily, # 90 tablet, 1 Refills, Maintenance, 05/12/23 20:24:00 EDT, Tablet, [facility]/pharmacy #[id number], Partial fill upon patient request if [...] Team Personnel Name: Broderick Kidd MD Position: [facility] Resident Member Role: PCP Address: Address: [address] [place] [address]- Care Team Related Persons Name: MARIO GERARD Address: home [address] [place] [address] Name: CARI GARCÍA Address: home [address] [place] [id number] Name: NOELLE MAY
--- OUTSIDE RECORDS SUMMARY | 2024-09-07 13:57 | XMS_ITS | Continuity of Care Document ---
Author Organization [facility] Address [address] [place] [address]- Care Team Providers Care Switchboard Wirer Name Role Phone Broderick Kidd MD Primary Care Physician Encounter [facility] Date(s): 05/22/23 - 05/29/23 [facility] [address] [place] [address]- Attending Physician: Jean Claude Landers MD Admitting Physician: Jean Claude Landers MD Referring Physician: Emily Sheets MD Allergies, Adverse Reactions, Alerts No Known Medication Allergies Immunizations Given and Recorded Vaccine Date Status Refusal Reason tetanus/diphtheria/pertussis, acel(Tdap) 04/25/23 Given tetanus/diphtheria/pertussis, acel(Tdap) 1 01/28/13 Given [id number] bivalent booster vax 01/03/23 Recorded influenza virus [...] VIS DATE 11/27/2011 2Result Comment: received at [facility] on [facility] in [place] 3Admin Note: flulaval vis given vis date 05/05/2012 4Result Comment: received 2nd dose at [facility] 5Result Comment: received at [facility] Medications acetaminophen 500 mg oral tablet 2 tablet, By Mouth, Every 8 hours, PRN NEEDED FOR PAIN, # 100 tablet, 3 Refills, Maintenance, 04/26/23 23:48:00 EDT, [facility] STORE 64567, 165, cm, 04/25/23 8:59:00 EDT, Height, 100, kg, 04/04/23 16:15:00 EDT, Dry Weight Start Date: 04/26/23 Status: Ordered albuterol 0.083% inhalation solution 1 vials, Inhalation, Every 6 hours, PRN NEEDED FOR WHEEZING/SHORTNESS OF BREATH, # 300 mL, 2 Refills, Maintenance, 10/19/22 10:14:00 EST, [facility] STORE 33664, 165.1, cm, 09/18/22 9:21:00 EST, Height Start Date: 10/19/22 Status: Ordered Bpzqi-Elmyqu-Lezl 300 mg oral capsule 1 capsule, By Mouth, 2 times a day, # 60 capsule, 5 Refills, Maintenance, 05/12/23 20:20:00 EDT, [facility]/pharmacy #[id number], 165, cm, 05/08/23 10:12:00 EDT, Height, 100, kg, 04/04/23 16:15:00 EDT, Dry Weight Start Date: 05/12/23 Status: Ordered amitriptyline 10 mg oral tablet 1, tablet, By Mouth, Daily at bedtime, # 30 tablet, Refills 3, Tot. Refills 3, Maintenance, 05/16/23 10:48:00 EDT, Route to Pharmacy Electronically, [facility]/pharmacy #[id number], 165, cm, 05/08/23 10:12:00 EDT, Height, 100, kg, 04/04/23 16:15:00 EDT, Dry Weight Start Date: 05/16/23 Status: Ordered ammonium lactate 5% topical lotion 1 application, Topically, 2 times a day, PRN Dry Skin, apply and rub in well, # 120 Gm, 0 Refills, Maintenance, 12/05/22 17:09:00 EST, Lotion, [facility]/pharmacy #[id number], Partial fill upon [...] 11/23/22 9:13:00 EST, Route to Pharmacy Electronically, [facility]/pharmacy #[id number], Partial fill upon [...] Gm, 2 Refills, Maintenance, 05/01/23 20:57:00 EDT, [facility] STORE 36952, 25, APPLY TOPICALLY 4 TIMES A DAY, NEEDED NEUROPATHIC PAIN, 165, cm, 04/25/23 8:59:00 EDT, Height... Start Date: 05/01/23 Status: Ordered famotidine 20 mg oral tablet 1, tablet, By Mouth, 2 times a day, # 60 tablet, Refills 5, Tot. Refills 5, Maintenance, 02/27/23 10:38:00 EDT, Route to Pharmacy Electronically, [facility]/pharmacy #[id number], 168, cm, 01/15/23 7:16:00 EDT, [...] patch, 0 Refills, Maintenance, 02/05/23 23:52:00 EDT, [facility] STORE 43199, 30, APPLY 1 PATCH TOPICALLY DAILY,X30 DAYS NEEDED FOR PAIN MILD, REMOVE AFTER 12 HOURS, 168,... Start Date: 02/05/23 Status: Ordered loratadine 10 mg oral tablet 1, tablet, By Mouth, 2 times a day, # 60 tablet, Refills 0, Maintenance, 12/31/22 14:48:00 EST, Route to Pharmacy Electronically, [facility] STORE [id number], 165.1, cm, 12/05/22 15:21:00 EST, Height Start Date: 12/31/22 Stop Date: 01/30/23 Status: Ordered losartan 50 mg oral tablet 50 mg, 1, tablet, By Mouth, Daily, # 30 tablet, Refills 3, Tot. Refills 3, Maintenance, 05/08/23 10:35:00 EDT, Route to Pharmacy Electronically, [facility]/pharmacy #[id number], Partial fill upon patient request if the prescription is for a schedule II opioid drug... Start Date: 05/08/23 Status: Ordered meclizine 25 mg oral tablet 1 tablet, By Mouth, 2 times a day, PRN NEEDED FOR DIZZINESS, Take as needed for dizziness, # 60 tablet, 2 Refills, Maintenance, 12/05/22 16:13:00 EST, [facility]/pharmacy #207, 165.1, cm, 12/05/22 15:21:00 EST, [...] tablet, 11 Refills, Maintenance, 07/31/22 16:07:00 EDT, [facility]/pharmacy #207, 165.1, cm, 07/12/22 17:15:00 EDT, Height Start Date: 07/31/22 Status: Ordered NuLYTELY with Flavor Packs oral powder for reconstitution 240 mL, By Mouth, Every 10 minutes, May substitute any PEG 3350 solution available SPLIT PREP METHOD, # 1 each, 0 Refills, Maintenance, 01/14/23 17:00:00 EDT, REC Powder, [facility]/pharmacy #[id number], test date 01/15/23, 240 mL [...] 5 Refills, Maintenance, 11/22/22 14:08:00 EST, Capsule, [facility]/pharmacy #[id number], Partial fill upon [...] x per day [facility], # 1 each, Refills 6, Tot. Refills 6, Maintenance, 09/29/21 9:04:00 EST, Instructions Replace Required Details Aerosol, Route to Pharmacy Electronically, [id number]... Start Date: 09/29/21 Status: Ordered Ventolin 90 mcg Inhaler 2, puffs, Inhalation, 4 times a day, PRN, Refills 0, Maintenance, 11/26/18 9:56:44 EST Start Date: 11/26/18 Status: Ordered Vitamin B12 500 mcg oral tablet 1 tablet = 500 mcg, By Mouth, Daily, # 90 tablet, 1 Refills, Maintenance, 05/12/23 20:24:00 EDT, Tablet, [facility]/pharmacy #[id number], Partial fill upon [...] Refills, Maintenance, 09/20/21 15:14:00 EST, Chew Tablet, [facility]/pharmacy #[id number], Partial fill upon [...] Chronic urticaria Confirmed Active Vertigo Confirmed Active Vital Signs Most recent to oldest [Reference Range]: 1 Height 165 cm (05/22/23 9:22 AM) Weight 101.81 kg (05/22/23 9:22 AM) Oxygen Saturation [94-100 %] 100 % (05/22/23 9:22 AM) Pulse Rate [55-90 bpm] 71 bpm (05/22/23 9:22 AM) Body Mass Index [18.5-24.99 kg/m2] 37.4 kg/m2 *>HHI* (05/22/23 9:22 AM) Blood Pressure [90-138/55-84 mm Hg] 114/ 76mm Hg (05/22/23 9:22 AM) Mode of Delivery (Oxygen) Room air (05/22/23 9:22 AM) Blood pressure sites Arm, right (05/22/23 9:22 AM) Weight Obtained Via Patient/family state d (05/22/23 9:22 AM) Social History Social History Type Response Smoking Status 5-9 cigarettes (betw een / to 1/2 pack)/day in last 30 days entered on: 04/04/23 Sex Female Note * Mary Spencer: PERFORM, SIGN, VERIFY Event Display: Patient Education/Instruction Authored Date: [id number] [facility] *[facility] [address] Clinical Summary Name TAYLOR SALAZAR Age 48 Years 1975 PCP Broderick Kidd MD PCP Visit Date 05/22/2023 08:46:00 Additional Instructions: Scheduled Appointments?? Future Appointments ?*[facility] [address] ?[place],??[place],??[address] ?Phone:??--?Fax:??-- ?Appt. Date:??06/03/2023?9:50 AM ?Scheduled Provider:??Elodia QUINTANA, Natalie ?*[facility] ?[address] ?[address] ?[place],??[place],??[address] ?Phone:??--?Fax:??-- ?Appt. Date:??07/02/2023?4:00 PM ?Scheduled Provider:??Sarina Connelly NP Follow-Up Instructions ?? With: Address: When: Anshul MEHTA, Jean Claude Pope Within 3 months Comments: F/U 3 months with VIB Diagnosis Medications: Please continue your medications until treatment is completed or stopped by your provider. Discuss any questions related to medications with your provider. Medications to Continue with No Changes These medications were not printed or sent to your pharmacy Acetaminophen (acetaminophen 500 mg oral tablet) 2 tab(s) Oral every 8 hours as needed NEEDED FOR PAIN. Refills: 3. Next Dose: Albuterol (albuterol 0.083% inhalation solution) 1 vials Inhalation every 6 hours as needed NEEDED FOR WHEEZING/SHORTNESS OF BREATH. Refills: 2. Next Dose: Albuterol (Ventolin 90 mcg Inhaler) 2 puff(s) Inhalation 4 times a day as needed Wheezing/Shortnessof Breath. Next Dose: alpha-lipoic acid (Hagrg-Joerux-Imkn 300 mg oral capsule) 1 capsule Oral twice a day. Refills: 5. Next Dose: amiTRIPTYLINE (amitriptyline 10 mg oral tablet) 1 tab(s) Oral Daily at Bedtime. Refills: 3. Next Dose: Ammonium Lactate 12% (ammonium lactate 5% topical lotion) 1 chica Topically twice a day as needed DrySkin for 14 Days. apply and rub in well. Refills: 0. Next Dose: Ascorbic Acid (Vitamin C) Oral Daily. Next Dose: Budesonide-Formoterol (Symbicort 80mcg/4.5mcg Inhaler) 1 puff 2 x per day BRand name covered by [facility]; as needed Wheezing/Shortness of Breath. Refills: 6. Next Dose: Calcium And Vitamin D Combination (Calcium 250 mg + Vitamin D 125 IU Tablet) Oral twice a day. Next Dose: Cetirizine (ZyrTEC 10 mg oral tablet, chewable) 1 tab(s) Oral Daily as needed for allergy symptoms for 60 Days. Refills: 3. Next Dose: Clonazepam (clonazepam 0.5 mg oral tablet) 1 Milligram Oral 3 times a day. Next Dose: Clonidine (cloNIDine 0.1 mg oral tablet) 1 tab(s) Oral Daily at Bedtime. Next Dose: Cyanocobalamin (cyanocobalamin 1000 mcg oral tablet) 1 tab(s) Oral Daily. Refills: 1. Next Dose: Cyanocobalamin (Vitamin B12 500 mcg oral tablet) 1 tab(s) Oral Daily. Refills: 1. Next Dose: Diclofenac Topical (diclofenac 1% topical gel) APPLY TOPICALLY 4 TIMES A DAY, NEEDED NEUROPATHICPAIN. Refills: 2. Next Dose: Duloxetine (Cymbalta 30 mg oral enteric coated capsule) 1 capsule Oral twice a day. Next Dose: Durable Medical Equipment (Compression Stockings) surgical, calf length 20-30 mm Hg ONE pair for lower extermity edema R22.43. Refills: 1. Next Dose: Famotidine (famotidine 20 mg oral tablet) 1 tab(s) Oral twice a day. Refills: 5. Next Dose: Hydroxychloroquine (Plaquenil 200 mg oral tablet) 2 tab(s) Oral Daily. Next Dose: HydrOXYzine 25 Milligram Oral twice a day as needed as needed for itching. Next Dose: Lidocaine Topical (lidocaine 5% topical film) 1 patch(es) Topically Daily as needed NEEDED FOR PAIN MILD, REMOVE AFTER 12 HOURS. Refills: 0. Next Dose: Loratadine (loratadine 10 mg oral tablet) 1 tab(s) Oral twice a day for 30 Days. Refills: 0. Next Dose: Losartan (losartan 50 mg oral tablet) 1 tab(s) Oral Daily. Refills: 3. Next Dose: Meclizine (meclizine 25 mg oral tablet) 1 tab(s) Oral twice a day as needed NEEDED FOR DIZZINESSfor 30 Days. Take as needed for dizziness. Refills: 2. Next Dose: mirabegron (Myrbetriq 50 mg oral tablet, extended release) 1 tab(s) Oral Daily. DO NOT CRUSH OR CHEW.. Refills: 11. Next Dose: Miscellaneous Rx ([facility] CHILD ALLERGY RLF 5 MG CHW) 1 tab(s) Oral Daily as needed NEEDED FOR CONGESTION. CHEW.. Refills: 0. Next Dose: Miscellaneous Rx (RIBOFLAVIN 400 MG TABLET) 1 tab(s) Oral Daily. Refills: 9. Next Dose: Miscellaneous Rx (Spacer) Use w inhaler. Refills: 0. Next Dose: Montelukast (Singulair 10 mg oral tablet) 1 tab(s) Oral Daily in PM. Next Dose: PEG Electrolyte Solution (NuLYTELY with Flavor Packs oral powder for reconstitution) 240 MilliliterOral every 10 minutes. May substitute any PEG 3350 solution available SPLIT PREP METHOD. Refills: 0. Next Dose: Polyethylene Glycol 3350 (MiraLax oral powder for reconstitution) 17 gram Oral Daily as needed Constipation. dissolve in water before taking. Refills: 2. Next Dose: Pregabalin (pregabalin 200 mg oral capsule) 1 capsule Oral twice a day. Refills: 5. Next Dose: Riboflavin (riboflavin 400 mg oral capsule) 1 capsule Oral Daily. Refills: 2. Next Dose: Risperidone (RisperDAL 1 mg oral tablet) 1 tab(s) Oral Daily at Bedtime. Next Dose: Rizatriptan (rizatriptan 10 mg oral tablet) 1 tab(s) Oral Daily as needed for migraine headache. may repeat dose every 2 hours up to a maximum of 3. Refills: 1. Next Dose: Allergy Info:?? No Known Medication Allergies Medications Given This Visit Future Orders ?VL Venous Dup Scan Venous Insuf LE Bilat? Order Date:05/22/23?- Complete by?05/22/23 Vital Signs Height Weight BMI Blood Pressure / Temperature Pulse Rate Respiratory Rate 02 Sat Mode of Delivery / You can now view a summary of your hospital visit from the comfort of your home through a free online portal called [employer]. [employer] is a website that allows you to securely view your medical information including discharge summary, medications and follow-up visits. ??You can alsosend a secure electronic message to your doctor???s office to request appointments, renew medications or just ask a question. You can enroll at [email or web address] or register during your next office visit. Disclaimer:?? The information provided is of a general nature and is intended to be used in conjunction with the recommendations and advice of your health care practitioner. ??Every effort has been made to ensure that the information provided is accurate and complete at the time it is provided to you however, as your needs change, or, as new ??information becomes available, different or additional instructions may be required. If you have questions, please consult with your primary care provider or pharmacist, as appropriate. ??This information is not intended to serve as substitution for assessment and evaluation by a qualified health care provider. If you do not have a primary care provider, you may find a [facility] provider by calling [facility] [employer] at [phone]. For information about the plan of care including goals and instructions for your diagnosis, please see the patient education orders section of this document. Patient Education Materials?? The content of this educational material or handout may have been modified, supplemented, or adapted from its original content and format to support your individualized medical care. Patient Care team information Care Team Personnel Name: Broderick Kidd MD Position: S Resident Member Role: PCP Address: Address: [address] [place] [address] [place] [address]- Care Team Related Persons Name: MARIO GERARD Address: home [address] [place] [address] Name: CARI GARCÍA Address: home [address] [place] [id number] Name: NOELLE MAY
--- OUTSIDE RECORDS SUMMARY | 2024-09-07 13:57 | XMS_ITS | Continuity of Care Document ---
Author Organization [facility] Address [address] [place] [address]- Care Team Providers Care Aircraft Ordnance Systems Mechanic Name Role Phone Broderick Kidd MD Primary Care Physician [phone] Encounter [facility] Date(s): 03/27/24 - 04/26/24 [facility] [address] [place] [phone] Allergies, Adverse Reactions, Alerts No Known Allergies [...] 04/25/23 Given tetanus/diphtheria/pertussis, acel(Tdap) 3 01/28/13 Given [id number] bivalent booster vax 01/03/23 Recorded SARS-CoV-2 (COVID-19) [...] 07/05/08 Recor ded 1Result Comment: received at [facility] on [facility] in [place] 2Admin Note: flulaval vis given vis date 05/05/2012 3Admin Note: VIS GIVEN VIS DATE 11/27/2011 4Result Comment: received 2nd dose at [facility] 5Result Comment: received at [facility] Medications acetaminophen 500 mg oral tablet 2 tablet, By Mouth, Every 8 hours, PRN NEEDED FOR PAIN, # 100 tablet, 3 Refills, Maintenance, 10/11/23 11:48:00 EST, [facility]/pharmacy #[id number], 165, cm, 09/27/23 10:21:00 EST, Height, 100, kg, 04/04/23 16:15:00 EDT, Dry Weight Start Date: 10/11/23 Status: Ordered Ajovy Autoinjector 225 mg/1.5 mL subcutaneous solution = 225 mg, Subcutaneous Injection, Every 28 days, # 1 kit, 5 Refills, Maintenance, 03/16/24 12:10:00EDT, [facility], Partial fill upon patient request if the prescription is for a schedule II opioid drug., 165, cm, 03/10/24 10:03:00 E... Start Date: 03/16/24 Status: Ordered Kkdty-Wpuajl-Avhr 300 mg oral capsule 1 capsule, By Mouth, 2 times a day, # 60 capsule, 5 Refills, Maintenance, 05/12/23 20:20:00 EDT, [facility]/pharmacy #[id number], 165, cm, 05/08/23 10:12:00 EDT, Height, 100, kg, 04/04/23 16:15:00 EDT, Dry Weight Start Date: 05/12/23 Status: Ordered amitriptyline 10 mg oral tablet 1, tablet, By Mouth, Daily at bedtime, # 90 tablet, Refills 1, Tot. Refills 1, Maintenance, 12/27/23 16:05:00 EST, Route to Pharmacy Electronically, [facility]/pharmacy #[id number], 165, cm, 10/11/23 14:32:00 EST, Height, 100, kg, 04/04/23 16:15:00 EDT, Dry Weight Start Date: 12/27/23 Status: Ordered ammonium lactate 5% topical lotion 1 application, Topically, 2 times a day, PRN Dry Skin, apply and rub in well, # 120 Gm, 0 Refills, Maintenance, 12/05/22 17:09:00 EST, Lotion, [facility]/pharmacy #[id number], Partial fill [...] 11/23/22 9:13:00 EST, Route to Pharmacy Electronically, [facility]/pharmacy #[id number], Partial fill [...] Gm, 2 Refills, Maintenance, 01/20/24 9:29:00 EDT, [facility], 25, APPLY TOPICALLY 4 TIMES A DAY, NEEDED NEUROPATHIC PAIN, 165, cm, 10/11/23 14:32:00 EST, Height... Start Date: 01/20/24 Status: Ordered famotidine 20 mg oral tablet 1, tablet, By Mouth, 2 times a day, # 180 tablet, Refills 1, Maintenance, 02/24/24 12:56:00 EDT, Route to Pharmacy Electronically, [facility], 165, cm, 02/06/24 9:54:00 EDT, Height, 100, kg, 04/04/23 16:15:00 EDT, Dry Weight Start Date: 02/24/24 Status: Ordered hydrochlorothiazide 25 mg oral tablet 1, tablet, By Mouth, Daily, # 90 tablet, Refills 1, Tot. Refills 1, Maintenance, 12/23/23 17:10:00 EST, Route to Pharmacy Electronically, [facility]/pharmacy #[id number], 165, cm, 10/11/23 14:32:00 [...] Refills, Maintenance, 02/05/23 23:52:00 EDT, [facility], 30, APPLY 1 PATCH TOPICALLY DAILY,X30 DAYS NEEDED FOR PAIN MILD, REMOVE AFTER 12 HOURS, 168,... Start Date: 02/05/23 Status: Ordered loratadine 10 mg oral tablet 1, tablet, By Mouth, 2 times a day, # 60 tablet, Refills 0, Maintenance, 12/31/22 14:48:00 EST, Route to Pharmacy Electronically, [facility], 165.1, cm, 12/05/22 15:21:00 EST, Height Start Date: 12/31/22 Stop Date: 01/30/23 Status: Ordered losartan 50 mg oral tablet 1 tablet, By Mouth, Daily, # 90 tablet, 1 Refills, Maintenance, 03/10/24 12:55:00 EDT, [facility], 165, cm, 03/10/24 10:03:00 EDT, Height, 100, kg, 04/04/23 16:15:00 EDT, Dry Weight Start Date: 03/10/24 Status: Ordered meclizine 25 mg oral tablet 1 tablet, By Mouth, 2 times a day, PRN NEEDED FOR DIZZINESS, # 60 tablet, 0 Refills, Maintenance, 05/30/23 16:12:00 EDT, [facility], 165, cm, 05/22/23 9:22:00 EDT, Height, 100, [...] 07/07/24 15:56:00 EDT, 07/07/23 15:56:00 EDT, Tablet, [facility]/pharmacy #[id number],Partial fill upon [...] tablet, 0 Refills, Maintenance, 09/23/23 10:53:00 EST, [facility] ST[facility] 39519, 165, cm, 09/12/23 13:12:00 EST, Height, 100, [...] capsule, 5 Refills, Maintenance, 02/27/24 6:10:00EDT, Capsule, [facility]/pharmacy #2071, Partial fill [...] Replace Required Details Aerosol, Route toPharmacy Electronically, [id number]... Start Date: 10/11/23 Status: Ordered Ventolin HFA 108 mcg/inh inhalation aerosol with adapter 2 puffs, Inhalation, Every 6 hours, PRN NEEDED FOR WHEEZE OR FOR SHORTNESS OF BREATH, # 18 each,3 Refills, Maintenance, 02/01/24 11:42:00 EDT, [facility], 165, cm, 10/11/23 14:32:00 EST, Height, 100, [...] Active 1Follows with therapist and psychiatrist at [place] per previous notes 2PFTs show no obstruction. However has h/o asthma. Ct chest in 07/27 and pulm note says restrictive lung disease mild similiar to findings on PFT 3Follows with therapist and psychiatrist at [place] per previous notes 4Sleep study in 2015. [...] Team Personnel Name: Broderick Kidd MD Position: [facility] Resident Member Role: PCP Address: Address: [address] [place] [address] [place] [address]- Care Team Related Persons Name: MARIO GERARD Address: home [address] [place] [address] Name: CARI GARCÍA Address: home [address], [place] [address] Name: NOELLE MAY
--- OUTSIDE RECORDS SUMMARY | 2024-09-07 13:57 | XMS_ITS | Continuity of Care Document ---
Author Organization [facility] Address [address] [place] [address]- Care Team Providers Care Septic Tank Installer Name Role Phone Broderick Kidd MD Primary Care Physician [place] [facility]10[place]23 - 07/10/[address] [address] Attending Physician: Sosa Joy Admitting Physician: AdmtrSosa Referring Physician: Admtr, Ar8 Allergies, Adverse Reactions, Alerts No Known Medication Allergies Immunizations Given and Recorded Vaccine Date Status Refusal Reason tetanus/diphtheria/pertussis, acel(Tdap) 04/25/23 Given tetanus/diphtheria/pertussis, acel(Tdap) 1 01/28/13 Given [id number] bivalent booster vax 01/03/23 Recorded influenza virus [...] VIS DATE 11/27/2011 2Result Comment: received at [facility] on [facility] in [place] 3Admin Note: flulaval vis given vis date 05/05/2012 4Result Comment: received 2nd dose at [facility] 5Result Comment: received at [facility] Medications acetaminophen 500 mg oral tablet 2 tablet, By Mouth, Every 8 hours, PRN NEEDED FOR PAIN, # 100 tablet, 3 Refills, Maintenance, 04/26/23 23:48:00 EDT, [facility] ST[facility] 20104, 165, cm, 04/25/23 8:59:00 EDT, Height, 100, kg, 04/04/23 16:15:00 EDT, Dry Weight Start Date: 04/26/23 Status: Ordered albuterol 0.083% inhalation solution 1 vials, Inhalation, Every 6 hours, PRN NEEDED FOR WHEEZING/SHORTNESS OF BREATH, # 300 mL, 2 Refills, Maintenance, 10/19/22 10:14:00 EST, [facility] 52813, 165.1, cm, 09/18/22 9:21:00 EST, Height Start Date: 10/19/22 Status: Ordered Asjwe-Exlfoj-Otbo 300 mg oral capsule 1 capsule, By Mouth, 2 times a day, # 60 capsule, 5 Refills, Maintenance, 05/12/23 20:20:00 EDT, [facility]/pharmacy #2071, 165, cm, 05/08/23 10:12:00 EDT, Height, 100, kg, 04/04/23 16:15:00 EDT, Dry Weight Start Date: 05/12/23 Status: Ordered amitriptyline 10 mg oral tablet 1, tablet, By Mouth, Daily at bedtime, # 30 tablet, Refills 3, Tot. Refills 3, Maintenance, 05/16/23 10:48:00 EDT, Route to Pharmacy Electronically, [facility]/pharmacy #[id number], 165, cm, 05/08/23 10:12:00 EDT, Height, 100, kg, 04/04/23 16:15:00 EDT, Dry Weight Start Date: 05/16/23 Status: Ordered ammonium lactate 5% topical lotion 1 application, Topically, 2 times a day, PRN Dry Skin, apply and rub in well, # 120 Gm, 0 Refills, Maintenance, 12/05/22 17:09:00 EST, Lotion, [facility]/pharmacy #[id number], Partial fill upon [...] 11/23/22 9:13:00 EST, Route to Pharmacy Electronically, [facility]/pharmacy #[id number], Partial fill upon [...] Gm, 2 Refills, Maintenance, 05/01/23 20:57:00 EDT, [facility] STORE 79740, 25, APPLY TOPICALLY 4 TIMES A DAY, NEEDED NEUROPATHIC PAIN, 165, cm, 04/25/23 8:59:00 EDT, Height... Start Date: 05/01/23 Status: Ordered famotidine 20 mg oral tablet 1, tablet, By Mouth, 2 times a day, # 60 tablet, Refills 5, Tot. Refills 5, Maintenance, 02/27/23 10:38:00 EDT, Route to Pharmacy Electronically, [facility]/pharmacy #2071, 168, cm, 01/15/23 [...] patch, 0 Refills, Maintenance, 02/05/23 23:52:00 EDT, [facility] 17211, 30, APPLY 1 PATCH TOPICALLY DAILY,X30 DAYS NEEDED FOR PAIN MILD, REMOVE AFTER 12 HOURS, 168,... Start Date: 02/05/23 Status: Ordered loratadine 10 mg oral tablet 1, tablet, By Mouth, 2 times a day, # 60 tablet, Refills 0, Maintenance, 12/31/22 14:48:00 EST, Route to Pharmacy Electronically, [facility], 165.1, cm, 12/05/22 15:21:00 EST, Height Start Date: 12/31/22 Stop Date: 01/30/23 Status: Ordered losartan 50 mg oral tablet 50 mg, 1, tablet, By Mouth, Daily, # 30 tablet, Refills 3, Tot. Refills 3, Maintenance, 05/08/23 10:35:00 EDT, Route to Pharmacy Electronically, [facility]/pharmacy #[id number], Partial fill upon patient request if the prescription is for a schedule II opioid drug... Start Date: 05/08/23 Status: Ordered meclizine 25 mg oral tablet 1 tablet, By Mouth, 2 times a day, PRN NEEDED FOR DIZZINESS, # 60 tablet, 0 Refills, Maintenance, 05/30/23 16:12:00 EDT, [facility], 165, cm, 05/22/23 9:22:00 EDT, Height, 100, kg, 04/04/23 16:15:00 EDT, Dry Weight Start Date: 05/30/23 Status: Ordered Myrbetriq 50 mg oral tablet, extended release 1 tablet, By Mouth, Daily, DO NOT CRUSH OR CHEW., # 30 tablet, 11 Refills, Maintenance, 07/31/22 16:07:00 EDT, [facility]/pharmacy #2071, 165.1, cm, 07/12/22 17:15:00 EDT, Height Start Date: 07/31/22 Status: Ordered naratriptan 2.5 mg oral tablet 1 tablet = 2.5 mg, By Mouth, Daily, PRN for migraine headache, may repeat dose once in 4 hours, # 18 tablet, 1 Refills, Acute 07/07/24 15:56:00 EDT, 07/07/23 15:56:00 EDT, Tablet, [facility]/pharmacy #[id number],Partial fill upon patient request if the prescripti... Start Date: 07/07/23 Stop Date: 07/07/24 Status: Ordered NuLYTELY with Flavor Packs oral powder for reconstitution 240 mL, By Mouth, Every 10 minutes, May substitute any PEG 3350 solution available SPLIT PREP METHOD, # 1 each, 0 Refills, Maintenance, 01/14/23 17:00:00 EDT, REC Powder, [facility]/pharmacy #[id number], test date 01/15/23, 240 mL By Mouth Every 10 minutes,Instr:M... Start Date: 01/14/23 Status: Ordered ondansetron 8 mg oral tablet 1 tablet = 8 mg, By Mouth, Daily, PRN Nausea, For bad nausea days., # 30 tablet, 0 Refills, Maintenance, 06/03/23 10:02:00 EDT, Tablet, [facility]/pharmacy #[id number], Partial fill upon [...] 5 Refills, Maintenance, 11/22/22 14:08:00 EST, Capsule, [facility]/pharmacy #[id number], Partial fill upon patient request if the prescription is for a schedule II opioid drug., 165.1, cm, 11/22/22 13:38:0... Start Date: 11/22/22 Status: Ordered riboflavin 400 mg oral capsule 1 capsule = 400 mg, By Mouth, Daily, # 100 capsule, 2 Refills, Maintenance, 05/12/23 20:23:00 EDT, Capsule, [facility]/pharmacy #[id number], 165, cm, 05/08/23 [...] x per day BRand name covered by [facility], # 1 each, Refills 6, Tot. Refills 6, Maintenance, 09/29/21 9:04:00 EST, Instructions Replace Required Details Aerosol, Route to Pharmacy Electronically, [id number]... Start Date: 09/29/21 Status: Ordered Ventolin 90 mcg Inhaler 2, puffs, Inhalation, 4 times a day, PRN, Refills 0, Maintenance, 11/26/18 9:56:44 EST Start Date: 11/26/18 Status: Ordered Vitamin B12 500 mcg oral tablet 1 tablet = 500 mcg, By Mouth, Daily, # 90 tablet, 1 Refills, Maintenance, 05/12/23 20:24:00 EDT, Tablet, [facility]/pharmacy #9401, Partial fill upon patient request if the [...] [facility] Resident Member Role: PCP Address: Address: [address] [place] [address]- Care Team Related Persons Name: MARIO GERARD Address: home [address] [place] [address] Name: CARI GARCÍA Address: home [address] [place] [address] Name: NOELLE MAY
--- OUTSIDE RECORDS SUMMARY | 2024-09-07 13:57 | XMS_ITS | Continuity of Care Document ---
Author Organization [facility]un[facility] Address [address], [address] [place] [address]- Care Team Providers Care Digital Print Operator Name Role Phone Otilia MEHTA, Kav Primary Care Physic astrid Encounter [facility] Date(s): 11/27/19 - 12/04/19 [facility] [address], [address] [place] [address]- Attending Physician: Binta MEHTA, Justine Baird Allergies, Adverse Reactions, Alerts No Known Medication [...] Inhalation, 2 times a day, Prescribed by Machine Sign Writer., # 1 each, Refills 11, Tot. Refills 11, Maintenance, 03/13/18 11:00:50 EDT, Inhaler, Route to Pharmacy Electronically, [id number], [facility]/pharmacy #[id number] Start Date: 03/13/18 Status: Ordered albuterol 0.083% inhalation solution 3 mL = 2.5 mg, Neb, Every 6 hours, PRN Wheezing/Shortness of Breath, # 360 mL, 2 Refills, Maintenance, 12/04/19 15:27:00 EST, [facility]/pharmacy #207, 165.1, cm, 12/04/19 14:54:00 EST, Height, 86.4, kg, 08/10/19 14:42:00 EDT, Dry Weight Start Date: 12/04/19 Status: Ordered Lety Allergy 60 mg oral tablet 3 tablet = 180 mg, By Mouth, Daily, Prescribed by Catalog Specialist in [place]., # 90 tablet, 0 Refills, Maintenance, 02/16/16 14:46:50, Tablet Start Date: 02/16/16 Stop Date: 03/17/16 Status: Ordered amitriptyline 10 mg oral tablet 10 mg, 1, tablet, By Mouth, Daily at bedtime, # 30 tablet, Refills 5, Tot. Refills 5, Maintenance, 06/30/19 15:15:49 EDT, Route to Pharmacy Electronically, [id number], [facility]/pharmacy #[id number] Start Date: 06/30/19 Status: [...] 10/14/19 17:13:14 EST, Route to Pharmacy Electronically, [id number], [facility]/pharmacy #[id number], 165.1, cm, 10/14/19 11:26:54 [...] 12/11/19 15:53:00 EST, 12/04/19 15:53:00 EST, Tablet, [facility]/pharmacy #2070, 165.1, cm, 12/04/19 14:54:00 [...] BY MOUTH DAILY,INSTR:DO NOT CRUSH OR CHEW, [facility]/pharmacy #[id number] Start Date: 07/07/19 Status: Ordered Nebulizer/Compressor See Instructions, # 1 each, Refills 0, Tot. Refills 0, Maintenance, for PRN albuterol inhaled, 11/21/17 16:27:13, Compound Start Date: 11/21/17 Status: Ordered nicotine 21 mg/24 hr transdermal film, extended release 1 patch, Topically, Daily, for 14 days, # 14 patch, 0 Refills, Acute 12/18/19 16:06:00 EST, 12/04/19 16:06:00 EST, Patch, [facility]/pharmacy #207, 1 patch Topically Daily,x14 days, 165.1, [...] Acute 12/09/19 15:52:00 EST,12/04/19 15:52:00 EST, Tablet, [facility]/pharmacy #207, 165.1, cm, 12/04/19 14:54:00 [...] 01/02/20 15:28:00 EST, 12/04/19 15:28:00 EST, Liquid, [facility]/pharmacy #[id number], 10 mL By Mouth [...] 12/09/19 15:27:00 EST, 12/04/19 15:27:00 EST, Capsule, [facility]/pharmacy #207, 165.1, cm, 12/04/19 14:54:00 [...] 15:27:00 EDT, 12/04/19 15:27:00 EST, ER Tablet, [id number], 165.1, cm, 12/04/19 14:54:00 EST, Height, [...] apnea (AIRAM ), on CPAP(Confirmed) Active *BHN/BHCP/Leodan [id number]-[phone]/[facility], active care coordination(Confirmed) Active Sjogren's syndrome(Confirmed) Active Smoker, 5-10 cigarettes per day since age 16. Quit once for 2.5 years(Confirmed) Active Systemic lupus(Confirmed) Active Chronic urticaria(Confirmed) Active Vertigo(Confirmed) Active Vital Signs Most recent to oldest [Reference Range]: 1 Height 165.10 cm (11/27/19 1:35 PM) Weight 90.18 kg (11/27/19 1:35 PM) Body Mass Index [18.5-24.99] 33.08 *>HHI* (11/27/19 1:35 PM) Blood Pressure [90-138/55-84 mm Hg] 105/ 77mm Hg (11/27/19 1:35 PM) Blood pressure sites Arm, right (11/27/19 1:35 PM) Weight Obtained Via Standing scale (11/27/19 1:35 PM) Social History Social History Type Response Tobacco Started at age: 13 Y ears. Sex Female
--- OUTSIDE RECORDS SUMMARY | 2024-09-07 13:57 | XMS_ITS | Continuity of Care Document ---
[facility] Address [address], [address] [place] [address]- Care Team Providers Care Collection Card Clerk Name Role Phone Broderick Kidd MD Primary Care Physician [facility]counter [facility] Date(s): 05/16/23 - 06[facility]15[facility] [address], [address] [place], [place] [address] Allergies, Adverse Reactions, Alerts No Known Medication Allergies Immunizations Given and Recorded Vaccine Date Status Refusal Reason tetanus/diphtheria/pertussis, acel(Tdap) 04/25/23 Given tetanus/diphtheria/pertussis, acel(Tdap) 1 01/28/13 Given [id number] bivalent booster vax 01/03/23 Recorded influenza virus [...] VIS DATE 11/27/2011 2Result Comment: received at [facility] on [facility] [place] 3Admin Note: flulaval vis given vis date 05/05/2012 4Result Comment: received 2nd dose at [facility] 5Result Comment: received at [facility] Medications acetaminophen 500 mg oral tablet 2 tablet, By Mouth, Every 8 hours, PRN NEEDED FOR PAIN, # 100 tablet, 3 Refills, Maintenance, 04/26/23 23:48:00 EDT, [facility]98, 165, cm, 04/25/23 8:59:00 EDT, Height, 100, kg, 04/04/23 16:15:00 EDT, Dry Weight Start Date: 04/26/23 Status: Ordered albuterol 0.083% inhalation solution 1 vials, Inhalation, Every 6 hours, PRN NEEDED FOR WHEEZING/SHORTNESS OF BREATH, # 300 mL, 2 Refills, Maintenance, 10/19/22 10:14:00 EST, [facility]86, 165.1, cm, 09/18/22 9:21:00 EST, Height Start Date: 10/19/22 Status: Ordered Hdmxc-Yzezve-Coid 300 mg oral capsule 1 capsule, By Mouth, 2 times a day, # 60 capsule, 5 Refills, Maintenance, 05/12/23 20:20:00 EDT, [facility]/pharmacy #2071, 165, cm, 05/08/23 10:12:00 EDT, Height, 100, kg, 04/04/23 16:15:00 EDT, Dry Weight Start Date: 05/12/23 Status: Ordered amitriptyline 10 mg oral tablet 1, tablet, By Mouth, Daily at bedtime, # 30 tablet, Refills 3, Tot. Refills 3, Maintenance, 05/16/23 10:48:00 EDT, Route to Pharmacy Electronically, [facility]/pharmacy #2071, 165, cm, 05/08/23 10:12:00 EDT, Height, 100, kg, 04/04/23 16:15:00 EDT, Dry Weight Start Date: 05/16/23 Status: Ordered ammonium lactate 5% topical lotion 1 application, Topically, 2 times a day, PRN Dry Skin, apply and rub in well, # 120 Gm, 0 Refills, Maintenance, 12/05/22 17:09:00 EST, Lotion, [facility]/pharmacy #2071, Partial fill upon patient request ifthe [...] 11/23/22 9:13:00 EST, Route to Pharmacy Electronically, [facility]/pharmacy #2071, Partial fill upon patient request if [...] Gm, 2 Refills, Maintenance, 05/01/23 20:57:00 EDT, [facility] 57615, 25, APPLY TOPICALLY 4 TIMES A DAY, NEEDED NEUROPATHIC PAIN, 165, cm, 04/25/23 8:59:00 EDT, Height... Start Date: 05/01/23 Status: Ordered famotidine 20 mg oral tablet 1, tablet, By Mouth, 2 times a day, # 60 tablet, Refills 5, Tot. Refills 5, Maintenance, 02/27/23 10:38:00 EDT, Route to Pharmacy Electronically, [facility]/pharmacy #2071, 168, cm, 01/15/23 7:16:00 EDT, Height, [...] patch, 0 Refills, Maintenance, 02/05/23 23:52:00 EDT, [facility]85, 30, APPLY 1 PATCH TOPICALLY DAILY,X30 DAYS NEEDED FOR PAIN MILD, REMOVE AFTER 12 HOURS, 168,... Start Date: 02/05/23 Status: Ordered loratadine 10 mg oral tablet 1, tablet, By Mouth, 2 times a day, # 60 tablet, Refills 0, Maintenance, 12/31/22 14:48:00 EST, Route to Pharmacy Electronically, [facility] 48262, 165.1, cm, 12/05/22 15:21:00 EST, Height Start Date: 12/31/22 Stop Date: 01/30/23 Status: Ordered losartan 50 mg oral tablet 50 mg, 1, tablet, By Mouth, Daily, # 30 tablet, Refills 3, Tot. Refills 3, Maintenance, 05/08/23 10:35:00 EDT, Route to Pharmacy Electronically, [facility]/pharmacy #2071, Partial fill upon patient request if the prescription is for a schedule II opioid drug... Start Date: 05/08/23 Status: Ordered meclizine 25 mg oral tablet 1 tablet, By Mouth, 2 times a day, PRN NEEDED FOR DIZZINESS, # 60 tablet, 0 Refills, Maintenance, 05/30/23 16:12:00 EDT, [facility], 165, cm, 05/22/23 9:22:00 EDT, Height, 100, kg, 04/04/23 16:15:00 EDT, Dry Weight Start Date: 05/30/23 Status: Ordered Myrbetriq 50 mg oral tablet, extended release 1 tablet, By Mouth, Daily, DO NOT CRUSH OR CHEW., # 30 tablet, 11 Refills, Maintenance, 07/31/22 16:07:00 EDT, [facility]/pharmacy #2071, 165.1, cm, 07/12/22 17:15:00 EDT, Height Start Date: 07/31/22 Status: Ordered NuLYTELY with Flavor Packs oral powder for reconstitution 240 mL, By Mouth, Every 10 minutes, May substitute any PEG 3350 solution available SPLIT PREP METHOD, # 1 each, 0 Refills, Maintenance, 01/14/23 17:00:00 EDT, REC Powder, [facility]/pharmacy #2071, test date 01/15/23, 240 mL By [...] 2 Refills, Maintenance, 05/12/23 20:23:00 EDT, Capsule, [facility]/pharmacy #2071, 165, cm, 05/08/23 10:12:00 EDT, Height, [...] Required Details Aerosol, Route to Pharmacy Electronically, [id number]... Start Date: 09/29/21 Status: Ordered Ventolin 90 mcg Inhaler 2, puffs, Inhalation, 4 times a day, PRN, Refills 0, Maintenance, 11/26/18 9:56:44 EST Start Date: 11/26/18 Status: Ordered Vitamin B12 500 mcg oral tablet 1 tablet = 500 mcg, By Mouth, Daily, # 90 tablet, 1 Refills, Maintenance, 05/12/23 20:24:00 EDT, Tablet, [facility]/pharmacy #3241, Partial fill upon patient request if the [...] Team Personnel Name: Broderick Kidd MD Position: [facility] Resident Member Role: PCP Address: Address: [address] [place] [address] [place] [address]- Care Team Related Persons Name: MARIO GERARD Address: home [address] [place] [address] Name: CARI GARCÍA Address: home [address] [place] [address] Name: NOELLE MAY
--- OUTSIDE RECORDS SUMMARY | 2024-09-07 13:57 | XMS_ITS | Continuity of Care Document ---
Author Organization [facility] Address [address] [place] [address]- Care Team Providers Care Trim Crew Supervisor Name Role Phone Ashley Faria MD Primary Care Physician [phone] [place] [facility] [place]): [place]09/20 [facility] [address] [place] [address]- [facility] Attending Physician: Sosa Joy Admitting Physician: Admtr, [id number] Referring Physician: Admtr, [id number] Allergies, Adverse Reactions, [...] Inhalation, 2 times a day, Prescribed by Health Program Director., # 1 each, Refills 11, Tot. Refills 11, Maintenance, 03/13/18 11:00:50 EDT, Inhaler, Route to Pharmacy Electronically, [id number], [facility]/pharmacy #[id number] Start Date: 03/13/18 Status: Ordered albuterol 0.083% inhalation solution 3 mL = 2.5 mg, Neb, Every 6 hours, PRN Wheezing/Shortness of Breath, # 360 mL, 2 Refills, Maintenance, 12/04/19 15:27:00 EST, [facility]/pharmacy #[id number], 165.1, cm, 12/04/19 14:54:00 EST, Height, 86.4, kg, 08/10/19 14:42:00 EDT, Dry Weight Start Date: 12/04/19 Status: Ordered Lety Allergy 60 mg oral tablet 3 tablet = 180 mg, By Mouth, Daily, Prescribed by Manager Icu in [place]., # 90 tablet, 0 Refills, Maintenance, 02/16/16 14:46:50, Tablet Start Date: 02/16/16 Stop Date: 03/17/16 Status: Ordered Alpha Lipoic 300 mg oral tablet 1 tablet = 300 mg, By Mouth, 2 times a day, # 60 tablet, 3 Refills, Maintenance, 06/09/20 11:40:00 EDT, Tablet, [facility]/pharmacy #[id number], 165.1, cm, 05/10/20 10:01:00 EDT, Height, 86.4, kg, 08/10/19 14:42:00 EDT, Dry Weight Start Date: 06/09/20 Status: Ordered amitriptyline 10 mg oral tablet 10 mg, 1, tablet, By Mouth, Daily at bedtime, # 30 tablet, Refills 5, Tot. Refills 5, Maintenance, 06/30/19 15:15:49 EDT, Route to Pharmacy Electronically, [id number], [facility]/pharmacy #[id number] Start Date: 06/30/19 Status: [...] 02/02/20 11:42:00 EDT, Route to Pharmacy Electronically, [facility]/pharmacy #[id number], 165.1, cm, 01/07/20 14:51:00 [...] tablet, 1 Refills, Maintenance, 06/09/20 11:40:00 EDT, [id number], 165.1, cm, 05/10/20 10:01:00 EDT, [...] BY MOUTH DAILY,INSTR:DO NOT CRUSH OR CHEW, [id number] Start Date: 07/07/19 Status: Ordered Nebulizer/Compressor See Instructions, # 1 each, Refills 0, Tot. Refills 0, Maintenance, for PRN albuterol inhaled, 11/21/17 16:27:13, Compound Start Date: 11/21/17 Status: Ordered omeprazole 20 mg oral enteric coated capsule 1 capsule = 20 mg, By Mouth, Daily, # 30 capsule, 2 Refills, Maintenance, 04/14/20 7:47:00 EDT, [facility]/pharmacy #[id number], 165.1, cm, 01/07/20 14:51:00 [...] tablet, 2 Refills, Maintenance, 01/07/20 15:12:00 EST, [facility]/pharmacy #[id number], 165.1, cm, 01/07/20 14:51:00 [...] apnea (AIRAM ), on CPAP(Confirmed) Active *BHN/BHCP/Leodan Rich-[phone]/Health [facility], active care coordination(Confirmed) Active Sjogren's syndrome(Confirmed) Active Smoker, 5-10 cigarettes per day since age 16. Quit once for 2.5 years(Confirmed) Active Systemic lupus(Confirmed) Active Chronic urticaria(Confirmed) Active Vertigo(Confirmed) Active Social History Social History Type Response Tobacco Started at age: 13 Y ears. Sex Female
--- OUTSIDE RECORDS SUMMARY | 2024-09-07 13:57 | XMS_ITS | Continuity of Care Document ---
Author Organization [facility] Address [address] [place] [address]- Care Team Providers Care [id number] Tank Crewman Name Role Phone Ashley Faria MD Primary Care Physician [phone] Encounter [facility] Date(s): 03/22/21 - 04/21/21 [facility] [address] [place] [address]- Attending Physician: Sosa Joy Admitting Physician: AdmtrSosa [...] Given 1Result Comment: received 2nd dose at [facility] 2Result Comment: received at [facility] 3Result Comment: received at [facility] on [facility] in [place] [employer] 4Admin Note: flulaval vis given vis date 05/05/2012 5Admin Note: VIS GIVEN VIS DATE 11/27/2011 Medications acetaminophen 500 mg oral tablet 2 tablet = 1,000 mg, By Mouth, Every 8 hours, PRN as needed for pain, # 100 tablet, 3 Refills, Maintenance, 02/13/21 13:30:00 EDT, [facility]/pharmacy #[id number], 165.1, cm, 02/13/21 12:53:00 EDT, Height, 86, kg, 05/18/19 10:08:00 EDT, Dry Weight Start Date: 02/13/21 Status: Ordered albuterol 0.083% inhalation solution 3 mL = 2.5 mg, Neb, Every 6 hours, PRN Wheezing/Shortness of Breath, # 360 mL, 2 Refills, Maintenance, 12/04/19 15:27:00 EST, [facility]/pharmacy #[id number], 165.1, cm, 12/04/19 14:54:00 EST, Height, 86.4, kg, 08/10/19 14:42:00 EDT, Dry Weight Start Date: 12/04/19 Status: Ordered Lety Allergy 60 mg oral tablet 3 tablet = 180 mg, By Mouth, Daily, Prescribed by Database Programmer in [place]., # 90 tablet, 0 Refills, Maintenance, 02/16/16 14:46:50, Tablet Start Date: 02/16/16 Stop Date: 03/17/16 Status: Ordered Rscxy-Sqruux-Mgct 300 mg oral capsule 1 capsule, By Mouth, 2 times a day, OTC N/C., # 60 capsule, 5 Refills, Maintenance, 12/08/20 8:20:00 EST, [facility], 165.1, cm, 05/10/20 10:01:00 EDT, Height, 86.4, kg, 08/10/19 14:42:00 EDT, Dry Weight Start Date: 12/08/20 Status: Ordered amitriptyline 10 mg oral tablet 1, tablet, By Mouth, Daily at bedtime, # 30 tablet, Refills 5, Tot. Refills 0, Maintenance, 02/01/21 16:14:00 EDT, Route to Pharmacy Electronically, [facility], 165.1, cm, 12/08/20 15:27:00 EST,Height, 86.4, kg, 08/10/19 14:42:00 EDT, Dry Weight Start Date: 02/01/21 Status: Ordered AUTO CPAP MACHINE AND SUPPLIES [...] 02/02/20 11:42:00 EDT, Route to Pharmacy Electronically, [facility]/pharmacy #[id number], 165.1, cm, 01/07/20 14:51:00 EST, [...] Refills, Maintenance, 04/16/21 19:52:00 EDT, [facility], 30, INHALE 1 PUFF BY MOUTH TWICE [...] 2 Refills, Maintenance, 02/13/21 13:36:00 EDT, Tablet, [facility]/pharmacy #[id number], 165.1, cm, 02/13/21 12:53:00 EDT, [...] Refills, Maintenance, 02/01/21 16:14:00 EDT, [facility], 165.1, cm, 12/08/20 15:27:00 EST, Height, 86.4, [...] capsule, 2 Refills, Maintenance, 02/13/21 13:30:00 EDT, [facility]/pharmacy #[id number], 165.1, cm, 02/13/21 12:53:00 EDT, [...] 2 Refills, Maintenance, 09/12/20 18:13:00 EST, Capsule, [facility]/pharmacy #[id number], 165.1, cm, 05/10/20 10:01:00 EDT, [...] # 9 tablet, 1 Refills, Soft Stop, [facility], 165.1, cm, 02/13/21 12:53:00 EDT, Height, 86.4, kg, 08/10/19 14:42:00 EDT, Dry Weight Start Date: 03/20/21 Status: Ordered Ventolin 90 mcg Inhaler 2, [...] apnea (AIRAM ), on CPAP(Confirmed) Active *BHN/BHCP/BENNETT-Nicolasa RichFmuqkky-[phone]/Health skilled nursing, active care coordination(Confirmed) Active Sjogren's syndrome(Confirmed) Active Smoker, 5-10 cigarettes per day since age 16. Quit once for 2.5 years(Confirmed) Active Systemic lupus(Confirmed) Active Chronic urticaria(Confirmed) Active Vertigo(Confirmed) Active Social History Social History Type Response Tobacco Started at age: 13 Y ears. Sex Female
--- OUTSIDE RECORDS SUMMARY | 2024-09-07 13:57 | XMS_ITS | Continuity of Care Document ---
Author Organization [facility] Address [address] [place] [address]- Care Team Providers Care Sap Business Intelligence Consultant Name Role Phone Otilia MEHTA, Kav Primary Care Physic astrid Encounter [facility] Date(s): 11/19/19 - 03/18/20 [facility] [address] [place] [address]- Attending Physician: Not on Staff, Attending MD [...] 2 times a day, Prescribed by Machine Marker., # 1 each, Refills 11, Tot. Refills 11, Maintenance, 03/13/18 11:00:50 EDT, Inhaler, Route to Pharmacy Electronically, [id number], [facility]/pharmacy #[id number] Start Date: 03/13/18 Status: Ordered albuterol 0.083% inhalation solution 3 mL = 2.5 mg, Neb, Every 6 hours, PRN Wheezing/Shortness of Breath, # 360 mL, 2 Refills, Maintenance, 12/04/19 15:27:00 EST, [facility]/pharmacy #2070, 165.1, cm, 12/04/19 14:54:00 EST, Height, 86.4, kg, 08/10/19 14:42:00 EDT, Dry Weight Start Date: 12/04/19 Status: Ordered Lety Allergy 60 mg oral tablet 3 tablet = 180 mg, By Mouth, Daily, Prescribed by Inventory Assistant in [place]., # 90 tablet, 0 Refills, Maintenance, 02/16/16 14:46:50, Tablet Start Date: 02/16/16 Stop Date: 03/17/16 Status: Ordered amitriptyline 10 mg oral tablet 10 mg, 1, tablet, By Mouth, Daily at bedtime, # 30 tablet, Refills 5, Tot. Refills 5, Maintenance, 06/30/19 15:15:49 EDT, Route to Pharmacy Electronically, [id number], [facility]/pharmacy #[id number] Start Date: 06/30/19 Status: [...] 02/02/20 11:42:00 EDT, Route to Pharmacy Electronically, [facility]/pharmacy #207, 165.1, cm, 01/07/20 14:51:00 EST, Height, [...] BY MOUTH DAILY,INSTR:DO NOT CRUSH OR CHEW, [facility]/pharmacy #[id number] Start Date: 07/07/19 Status: Ordered Nebulizer/Compressor See Instructions, # 1 each, Refills 0, Tot. Refills 0, Maintenance, for PRN albuterol inhaled, 11/21/17 16:27:13, Compound Start Date: 11/21/17 Status: Ordered omeprazole 20 mg oral enteric coated capsule 1 capsule = 20 mg, By Mouth, Daily, # 30 capsule, 2 Refills, Maintenance, 01/07/20 15:11:00 EST, [facility]/pharmacy #2071, 165.1, cm, 01/07/20 14:51:00 [...] tablet, 2 Refills, Maintenance, 01/07/20 15:12:00 EST, [facility]/pharmacy #[id number], 165.1, cm, 01/07/20 14:51:00 [...] apnea (AIRAM ), on CPAP(Confirmed) Active *BHN/BHCP/Leodan Rich-[phone]/[facility], active care coordination(Confirmed) Active Sjogren's syndrome(Confirmed) Active Smoker, 5-10 cigarettes per day since age 16. Quit once for 2.5 years(Confirmed) Active Systemic lupus(Confirmed) Active Chronic urticaria(Confirmed) Active Vertigo(Confirmed) Active Social History Social History Type Response Tobacco Started at age: 13 Y ears. Sex Female
--- OUTSIDE RECORDS SUMMARY | 2024-09-07 13:58 | XMS_ITS | Continuity of Care Document ---
Author Organization [facility] Address [address] [place] [address]- Care Team Providers Care Slot Technician Name Role Phone Ashley Faria MD Primary Care Physician [phone] [place] [facility] [place] 03/27/23 - 04/26/23 [facility] [address] [place] [address]- Attending Physician: Sosa Joy Admitting Physician: AdmSosa jean baptiste Referring Physician: AdmtrSosa Allergies, Adverse Reactions, Alerts No Known Medication Allergies Immunizations Given and Recorded Vaccine Date Status Refusal Reason tetanus/diphtheria/pertussis, acel(Tdap) 04/25/23 Given tetanus/diphtheria/pertussis, acel(Tdap) 1 01/28/13 Given [id number] bivalent booster vax 01/03/23 Recorded influenza virus [...] VIS DATE 11/27/2011 2Result Comment: received at [facility] on [facility] in [place] 3Admin Note: flulaval vis given vis date 05/05/2012 4Result Comment: received 2nd dose at [facility] 5Result Comment: received at [facility] Medications acetaminophen 500 mg oral tablet 2 tablet, By Mouth, Every 8 hours, PRN NEEDED FOR PAIN, # 100 tablet, 3 Refills, Maintenance, 04/26/23 23:48:00 EDT, [facility], 165, cm, 04/25/23 8:59:00 EDT, Height, 100, kg, 04/04/23 16:15:00 EDT, Dry Weight Start Date: 04/26/23 Status: Ordered albuterol 0.083% inhalation solution 1 vials, Inhalation, Every 6 hours, PRN NEEDED FOR WHEEZING/SHORTNESS OF BREATH, # 300 mL, 2 Refills, Maintenance, 10/19/22 10:14:00 EST, [facility], 165.1, cm, 09/18/22 9:21:00 EST, Height Start Date: 10/19/22 Status: Ordered Iejca-Sgekvt-Nuui 300 mg oral capsule 1 capsule, By Mouth, 2 times a day, OTC N/C., # 60 capsule, 5 Refills, Maintenance, 08/17/21 15:40:00 EDT, [facility]/pharmacy #[id number], 165.1, cm, 08/14/21 14:44:00 EDT, Height Start Date: 08/17/21 Status: Ordered amitriptyline 10 mg oral tablet 1, tablet, By Mouth, Daily at bedtime, # 30 tablet, Refills 5, Maintenance, 01/21/23 11:23:00 EDT, Route to Pharmacy Electronically, [facility] 580[facility], 168, cm, 01/15/23 7:16:00 EDT, Height, 99.4, kg, 01/15/23 7:16:00 EDT, Dry Weight Start Date: 01/21/23 Status: Ordered amLODIPine 5 mg oral tablet 1 tablet, By Mouth, Daily in AM, # 60 tablet, 0 Refills, Maintenance, 01/31/23 19:32:00 EDT, [facility] STORE 47142, 168, cm, 01/15/23 7:16:00 EDT, Height, 99.4, kg, 01/15/23 7:16:00 EDT, Dry Weight Start Date: 01/31/23 Status: Ordered ammonium lactate 5% topical lotion 1 application, Topically, 2 times a day, PRN Dry Skin, apply and rub in well, # 120 Gm, 0 Refills, Maintenance, 12/05/22 17:09:00 EST, Lotion, [facility]/pharmacy #[id number], Partial fill upon patient [...] Date: 04/25/23 Stop Date: 04/25/24 Status: Ordered [facility] CHILD ALLERGY RLF 5 MG [facility] [...] 11/23/22 9:13:00 EST, Route to Pharmacy Electronically, [facility]/pharmacy #[id number], Partial fill upon patient [...] Gm, 2 Refills, Maintenance, 02/12/23 7:07:00 EDT, [facility] STORE 75005, 25, APPLY TOPICALLY 4 TIMES A DAY, NEEDED NEUROPATHIC PAIN, 168, cm, 01/15/23 7:16:00 EDT, Height,... Start Date: 02/12/23 Status: Ordered famotidine 20 mg oral tablet 1, tablet, By Mouth, 2 times a day, # 60 tablet, Refills 5, Tot. Refills 5, Maintenance, 02/27/23 10:38:00 EDT, Route to Pharmacy Electronically, [facility]/pharmacy #[id number], 168, cm, 01/15/23 7:16:00 [...] patch, 0 Refills, Maintenance, 02/05/23 23:52:00 EDT, [facility], 30, APPLY 1 PATCH TOPICALLY DAILY,X30 DAYS NEEDED FOR PAIN MILD, REMOVE AFTER 12 HOURS, 168,... Start Date: 02/05/23 Status: Ordered loratadine 10 mg oral tablet 1, tablet, By Mouth, 2 times a day, # 60 tablet, Refills 0, Maintenance, 12/31/22 14:48:00 EST, Route to Pharmacy Electronically, [facility] 204[facility], 165.1, cm, 12/05/22 15:21:00 EST, Height Start Date: 12/31/22 Stop Date: 01/30/23 Status: Ordered meclizine 25 mg oral tablet 1 tablet, By Mouth, 2 times a day, PRN NEEDED FOR DIZZINESS, Take as needed for dizziness, # 60 tablet, 2 Refills, Maintenance, 12/05/22 16:13:00 EST, [facility]/pharmacy #[id number], 165.1, cm, 12/05/22 15:21:00 [...] Refills, Maintenance, 01/14/23 17:00:00 EDT, REC Powder, [id number], test date 01/15/23, 240 mL By [...] 5 Refills, Maintenance, 11/22/22 14:08:00 EST, Capsule, [facility]/pharmacy #[id number], Partial fill upon patient request if the prescription is for a schedule II opioid drug., 165.1, cm, 11/22/22 13:38:0... Start Date: 11/22/22 Status: Ordered riboflavin 400 mg oral capsule 1 capsule = 400 mg, By Mouth, Daily, # 100 capsule, 2 Refills, Maintenance, 09/12/20 18:13:00 EST, Capsule, [facility]/pharmacy #[id number], 165.1, cm, 05/10/20 10:01:00 [...] x per day BRand name covered by banner, # 1 each, Refills 6, Tot. Refills 6, Maintenance, 09/29/21 9:04:00 EST, Instructions Replace Required Details Aerosol, Route to Pharmacy Electronically, [id number]... Start Date: 09/29/21 Status: Ordered Ventolin 90 [...] Refills, Maintenance, 09/20/21 15:14:00 EST, Chew Tablet, [facility]/pharmacy #[id number], Partial fill upon patient [...] Team Personnel Name: Ashley Faria MD Position: [facility] Resident Member Role: PCP Address: Address: [address] [place] [address]- Care Team Related Persons Name: MARIO GERARD Address: home [address] [place] [address] Name: CARI GARCÍA Address: home [address] [address] Name: NOELLE MAY
--- OUTSIDE RECORDS SUMMARY | 2024-09-07 13:58 | XMS_ITS | Continuity of Care Document ---
Author Organization [facility] Address [address] [place] [address]- Care Team Providers Care Link Trainer Maintenance Man Name Role Phone Broderick Kidd MD Primary Care Physician [phone] Encounter [facility] Date(s): 05/15/23 - 06/14/23 [facility] [address] [place] [id number] Allergies, Adverse Reactions, Alerts No Known Medication Allergies Immunizations Given and Recorded Vaccine Date Status Refusal Reason tetanus/diphtheria/pertussis, acel(Tdap) 04/25/23 Given tetanus/diphtheria/pertussis, acel(Tdap) 1 01/28/13 Given [id number] bivalent booster vax 01/03/23 Recorded influenza virus [...] VIS DATE 11/27/2011 2Result Comment: received at [facility] on [facility] [place] [facility] Note: flulaval vis given vis date 05/05/2012 4Result Comment: received 2nd dose at [facility] 5Result Comment: received at [facility] Medications acetaminophen 500 mg oral tablet 2 tablet, By Mouth, Every 8 hours, PRN NEEDED FOR PAIN, # 100 tablet, 3 Refills, Maintenance, 04/26/23 23:48:00 EDT, [facility], 165, cm, 04/25/23 8:59:00 EDT, Height, 100, kg, 04/04/23 16:15:00 EDT, Dry Weight Start Date: 04/26/23 Status: Ordered albuterol 0.083% inhalation solution 1 vials, Inhalation, Every 6 hours, PRN NEEDED FOR WHEEZING/SHORTNESS OF BREATH, # 300 mL, 2 Refills, Maintenance, 10/19/22 10:14:00 EST, [facility], 165.1, cm, 09/18/22 9:21:00 EST, Height Start Date: 10/19/22 Status: Ordered Qplat-Whptis-Qkag 300 mg oral capsule 1 capsule, By Mouth, 2 times a day, # 60 capsule, 5 Refills, Maintenance, 05/12/23 20:20:00 EDT, [facility]/pharmacy #[id number], 165, cm, 05/08/23 10:12:00 EDT, Height, 100, kg, 04/04/23 16:15:00 EDT, Dry Weight Start Date: 05/12/23 Status: Ordered amitriptyline 10 mg oral tablet 1, tablet, By Mouth, Daily at bedtime, # 30 tablet, Refills 3, Tot. Refills 3, Maintenance, 05/16/23 10:48:00 EDT, Route to Pharmacy Electronically, [facility]/pharmacy #[id number], 165, cm, 05/08/23 10:12:00 EDT, Height, 100, kg, 04/04/23 16:15:00 EDT, Dry Weight Start Date: 05/16/23 Status: Ordered ammonium lactate 5% topical lotion 1 application, Topically, 2 times a day, PRN Dry Skin, apply and rub in well, # 120 Gm, 0 Refills, Maintenance, 12/05/22 17:09:00 EST, Lotion, [facility]/pharmacy #[id number], Partial fill upon patient request ifthe [...] EST, Route to Pharmacy Electronically, [facility]/pharmacy #[id number], Partial fill upon patient request if [...] Gm, 2 Refills, Maintenance, 05/01/23 20:57:00 EDT, [facility], 25, APPLY TOPICALLY 4 TIMES A DAY, NEEDED NEUROPATHIC PAIN, 165, cm, 04/25/23 8:59:00 EDT, Height... Start Date: 05/01/23 Status: Ordered famotidine 20 mg oral tablet 1, tablet, By Mouth, 2 times a day, # 60 tablet, Refills 5, Tot. Refills 5, Maintenance, 02/27/23 10:38:00 EDT, Route to Pharmacy Electronically, [facility]/pharmacy #[id number], 168, cm, 01/15/23 7:16:00 EDT, Height, [...] patch, 0 Refills, Maintenance, 02/05/23 23:52:00 EDT, [facility] ST[facility] 144[facility], 30, APPLY 1 PATCH TOPICALLY DAILY,X30 DAYS NEEDED FOR PAIN MILD, REMOVE AFTER 12 HOURS, 168,... Start Date: 02/05/23 Status: Ordered loratadine 10 mg oral tablet 1, tablet, By Mouth, 2 times a day, # 60 tablet, Refills 0, Maintenance, 12/31/22 14:48:00 EST, Route to Pharmacy Electronically, [facility] ST[facility] 75003, 165.1, cm, 12/05/22 15:21:00 EST, Height Start Date: 12/31/22 Stop Date: 01/30/23 Status: Ordered losartan 50 mg oral tablet 50 mg, 1, tablet, By Mouth, Daily, # 30 tablet, Refills 3, Tot. Refills 3, Maintenance, 05/08/23 10:35:00 EDT, Route to Pharmacy Electronically, [facility]/pharmacy #[id number], Partial fill upon patient request if the prescription is for a schedule II opioid drug... Start Date: 05/08/23 Status: Ordered meclizine 25 mg oral tablet 1 tablet, By Mouth, 2 times a day, PRN NEEDED FOR DIZZINESS, # 60 tablet, 0 Refills, Maintenance, 05/30/23 16:12:00 EDT, [facility] ST[facility] 55261, 165, cm, 05/22/23 9:22:00 EDT, Height, 100, kg, 04/04/23 16:15:00 EDT, Dry Weight Start Date: 05/30/23 Status: Ordered Myrbetriq 50 mg oral tablet, extended release 1 tablet, By Mouth, Daily, DO NOT CRUSH OR CHEW., # 30 tablet, 11 Refills, Maintenance, 07/31/22 16:07:00 EDT, [facility]/pharmacy #[id number], 165.1, cm, 07/12/22 17:15:00 EDT, Height Start Date: 07/31/22 Status: Ordered NuLYTELY with Flavor Packs oral powder for reconstitution 240 mL, By Mouth, Every 10 minutes, May substitute any PEG 3350 solution available SPLIT PREP METHOD, # 1 each, 0 Refills, Maintenance, 01/14/23 17:00:00 EDT, REC Powder, [facility]/pharmacy #[id number], test date 01/15/23, 240 mL By Mouth Every 10 minutes,Instr:M... Start Date: 01/14/23 Status: Ordered ondansetron 8 mg oral tablet 1 tablet = 8 mg, By Mouth, Daily, PRN Nausea, For bad nausea days., # 30 tablet, 0 Refills, Maintenance, 06/03/23 10:02:00 EDT, Tablet, [facility]/pharmacy #[id number], Partial fill upon patient request if [...] 5 Refills, Maintenance, 11/22/22 14:08:00 EST, Capsule, [facility]/pharmacy #[id number], Partial fill upon patient request if [...] Required Details Aerosol, Route to Pharmacy Electronically, [id number]... Start Date: 09/29/21 Status: Ordered Ventolin 90 mcg Inhaler 2, puffs, Inhalation, 4 times a day, PRN, Refills 0, Maintenance, 11/26/18 9:56:44 EST Start Date: 11/26/18 Status: Ordered Vitamin B12 500 mcg oral tablet 1 tablet = 500 mcg, By Mouth, Daily, # 90 tablet, 1 Refills, Maintenance, 05/12/23 20:24:00 EDT, Tablet, [facility]/pharmacy #2621, Partial fill upon patient request if the [...] Team Personnel Name: Broderick Kidd MD Position: [facility] Resident Member Role: PCP Address: Address: [address] [place] [address]- Care Team Related Persons Name: MARIO GERARD Address: home [address] [place] [address] Name: CARI GARCÍA Address: home [address] [address] Name: NOELLE MAY
--- OUTSIDE RECORDS SUMMARY | 2024-09-07 13:58 | XMS_ITS | Continuity of Care Document ---
Author Organization [facility] Address [address] [place] [id number]- Care Team Providers Care Funeral Home Assistant Name Role Phone Broderick Kidd MD Primary Care Physician Encounter [facility] Date(s): 06/10/23 - 08/10/[address] [address]- Encounter Diagnosis Lymphedema, not elsewhere classified(Final) - Discharge Disposition: A-D/C Home Attending Physician: Miranda Bowman MD Admitting Physician: Miranda Bowman MD Referring Physician: Miranda Bowman MD Allergies, Adverse Reactions, Alerts No Known Medication Allergies Immunizations Given and Recorded Vaccine Date Status Refusal Reason tetanus/diphtheria/pertussis, acel(Tdap) 04/25/23 Given tetanus/diphtheria/pertussis, acel(Tdap) 1 01/28/13 Given [id number] bivalent booster vax 01/03/23 Recorded influenza virus [...] DATE 11/27/2011 2Result Comment: received at [facility] on [facility] in [place] 3Admin Note: flulaval vis given vis date 05/05/2012 4Result Comment: received 2nd dose at [facility] 5Result Comment: received at [facility] Medications acetaminophen 500 mg oral tablet 2 tablet, By Mouth, Every 8 hours, PRN NEEDED FOR PAIN, # 100 tablet, 3 Refills, Maintenance, 04/26/23 23:48:00 EDT, [id number], 165, cm, 04/25/23 8:59:00 EDT, Height, 100, kg, 04/04/23 16:15:00 EDT, Dry Weight Start Date: 04/26/23 Status: Ordered albuterol 0.083% inhalation solution 1 vials, Inhalation, Every 6 hours, PRN NEEDED FOR WHEEZING/SHORTNESS OF BREATH, # 300 mL, 2 Refills, Maintenance, 10/19/22 10:14:00 EST, [facility] ST[id number], 165.1, cm, 09/18/22 9:21:00 EST, Height Start Date: 10/19/22 Status: Ordered Wkdrb-Udespr-Jzfz 300 mg oral capsule 1 capsule, By Mouth, 2 times a day, # 60 capsule, 5 Refills, Maintenance, 05/12/23 20:20:00 EDT, [facility]/pharmacy #[id number], 165, cm, 05/08/23 10:12:00 EDT, Height, 100, kg, 04/04/23 16:15:00 EDT, Dry Weight Start Date: 05/12/23 Status: Ordered amitriptyline 10 mg oral tablet 1, tablet, By Mouth, Daily at bedtime, # 30 tablet, Refills 3, Tot. Refills 3, Maintenance, 05/16/23 10:48:00 EDT, Route to Pharmacy Electronically, [facility]/pharmacy #[id number], 165, cm, 05/08/23 10:12:00 EDT, Height, 100, kg, 04/04/23 16:15:00 EDT, Dry Weight Start Date: 05/16/23 Status: Ordered ammonium lactate 5% topical lotion 1 application, Topically, 2 times a day, PRN Dry Skin, apply and rub in well, # 120 Gm, 0 Refills, Maintenance, 12/05/22 17:09:00 EST, Lotion, [facility]/pharmacy #[id number], Partial fill upon patient [...] 9:13:00 EST, Route to Pharmacy Electronically, [facility]/pharmacy #[id number], Partial fill upon patient [...] Refills, Maintenance, 07/16/23 6:00:00 EDT, [id number], 25, APPLY TOPICALLY 4 TIMES A DAY, NEEDED NEUROPATHIC PAIN, 165, cm, 06/03/23 9:52:00 EDT, Height,... Start Date: 07/16/23 Status: Ordered famotidine 20 mg oral tablet 1, tablet, By Mouth, 2 times a day, # 60 tablet, Refills 5, Tot. Refills 5, Maintenance, 02/27/23 10:38:00 EDT, Route to Pharmacy Electronically, [facility]/pharmacy #[id number], 168, cm, 01/15/23 7:16:00 EDT, Height, [...] 0 Refills, Maintenance, 02/05/23 23:52:00 EDT, [facility] STORE [facility], 30, APPLY 1 PATCH TOPICALLY DAILY,X30 DAYS NEEDED FOR PAIN MILD, REMOVE AFTER 12 HOURS, 168,... Start Date: 02/05/23 Status: Ordered loratadine 10 mg oral tablet 1, tablet, By Mouth, 2 times a day, # 60 tablet, Refills 0, Maintenance, 12/31/22 14:48:00 EST, Route to Pharmacy Electronically, [facility] ST[id number], 165.1, cm, 12/05/22 15:21:00 EST, Height Start Date: 12/31/22 Stop Date: 01/30/23 Status: Ordered losartan 50 mg oral tablet 50 mg, 1, tablet, By Mouth, Daily, # 30 tablet, Refills 3, Tot. Refills 3, Maintenance, 05/08/23 10:35:00 EDT, Route to Pharmacy Electronically, [facility]/pharmacy #[id number], Partial fill upon patient request if the prescription is for a schedule II opioid drug... Start Date: 05/08/23 Status: Ordered meclizine 25 mg oral tablet 1 tablet, By Mouth, 2 times a day, PRN NEEDED FOR DIZZINESS, # 60 tablet, 0 Refills, Maintenance, 05/30/23 16:12:00 EDT, [facility], 165, cm, 05/22/23 9:22:00 EDT, Height, 100, kg, 04/04/23 16:15:00 EDT, Dry Weight Start Date: 05/30/23 Status: Ordered Myrbetriq 50 mg oral tablet, extended release 1 tablet, By Mouth, Daily, DO NOT CRUSH OR CHEW., # 30 tablet, 11 Refills, Maintenance, 07/31/22 16:07:00 EDT, [facility]/pharmacy #[id number], 165.1, cm, 07/12/22 17:15:00 EDT, Height [...] Maintenance, 01/14/23 17:00:00 EDT, REC Powder, [facility]/pharmacy #[id number], test date 01/15/23, 240 mL By Mouth Every 10 minutes,Instr:M... Start Date: 01/14/23 Status: Ordered ondansetron 8 mg oral tablet 1 tablet = 8 mg, By Mouth, Daily, PRN Nausea, For bad nausea days., # 30 tablet, 0 Refills, Maintenance, 06/03/23 10:02:00 EDT, Tablet, [facility]/pharmacy #[id number], Partial fill upon patient [...] Refills, Maintenance, 11/22/22 14:08:00 EST, Capsule, [facility]/pharmacy #[id number], Partial fill upon patient request if the prescription is for a schedule II opioid drug., 165.1, cm, 11/22/22 13:38:0... Start Date: 11/22/22 Status: Ordered riboflavin 400 mg oral capsule 1 capsule = 400 mg, By Mouth, Daily, # 100 capsule, 2 Refills, Maintenance, 05/12/23 20:23:00 EDT, Capsule, [facility]/pharmacy #[id number], 165, cm, 05/08/23 10:12:00 [...] x per day BRand name covered by [facility], # 1 each, Refills 6, Tot. Refills 6, Maintenance, 09/29/21 9:04:00 EST, Instructions Replace Required Details Aerosol, Route to Pharmacy Electronically, [id number]... Start Date: 09/29/21 Status: Ordered Ventolin 90 mcg Inhaler 2, puffs, Inhalation, 4 times a day, PRN, Refills 0, Maintenance, 11/26/18 9:56:44 EST Start Date: 11/26/18 Status: Ordered Vitamin B12 500 mcg oral tablet 1 tablet = 500 mcg, By Mouth, Daily, # 90 tablet, 1 Refills, Maintenance, 05/12/23 20:24:00 EDT, Tablet, [facility]/pharmacy #[id number], Partial fill upon patient request if the [...] Team Personnel Name: Broderick Kidd MD Position: [facility] Resident Member Role: PCP Address: Address: [address] [place] [address]- Care Team Related Persons Name: MARIO GERARD Address: home [address] [place] [address] Name: CARI GARCÍA Address: home [address] [place] [id number] Name: NOELLE MAY
--- OUTSIDE RECORDS SUMMARY | 2024-09-07 13:58 | XMS_ITS | Continuity of Care Document ---
Author Organization [facility] Address [address] [place] [address]- Care Team Providers Care Breaker Unit Assembler Name Role Phone Giana MEHTA, Ashley Primary Care Physician Encounter [facility] Date(s): 02/02/22 - 03/04/22 [facility] [address] [place], [place] [address] Attending Physician: Sosa Joy Admitting Physician: AdmtrSosa Referring Physician: Admtr, [id number] Allergies, Adverse Reactions, Alerts No Known Medication [...] 5 01/28/13 Given 1Result Comment: received at [facility] on [facility] in [place] 2Admin Note: flulaval vis given vis date 05/05/2012 3Result Comment: received 2nd dose at [facility] 4Result Comment: received at [facility] 5Admin Note: VIS GIVEN VIS DATE 11/27/2011 Medications acetaminophen 500 mg oral tablet 2 tablet, By Mouth, Every 8 hours, PRN NEEDED FOR PAIN, # 100 tablet, 3 Refills, [facility] STORE 53543, 165.1, cm, 09/20/21 14:28:00 EST, Height Start Date: 10/10/21 Status: Ordered albuterol 0.083% inhalation solution 3 mL = 2.5 mg, Neb, Every 6 hours, PRN Wheezing/Shortness of Breath, # 360 mL, 2 Refills, Maintenance, 09/20/21 15:13:00 EST, [facility]/pharmacy #1, 165.1, cm, 09/20/21 14:28:00 EST, Height Start Date: 09/20/21 Status: Ordered albuterol CFC free 90 mcg/inh inhalation aerosol 1, puffs, Inhalation, 4 times a day, PRN, # 8 Gm, Refills 11, Tot. Refills 11, Maintenance, 07/21/21 17:07:00 EDT, Aerosol, Route to Pharmacy Electronically, [id number], [facility]/pharmacy #[id number], 165.1, cm, 03/22/21 14:17:00 EDT, H... Start Date: 07/21/21 Status: Ordered Yxaou-Xslhhj-Vbdx 300 mg oral capsule 1 capsule, By Mouth, 2 times a day, OTC N/C., # 60 capsule, 5 Refills, Maintenance, 08/17/21 15:40:00 EDT, [facility]/pharmacy #1, 165.1, cm, 08/14/21 14:44:00 EDT, Height Start Date: 08/17/21 Status: Ordered amitriptyline 10 mg oral tablet 1, tablet, By Mouth, Daily at bedtime, # 90 tablet, Refills 3, Tot. Refills 3, Maintenance, 08/14/21 15:13:00 EDT, Route to Pharmacy Electronically, [facility]/pharmacy #[id number], 165.1, cm, 08/14/21 14:44:00 EDT, [...] 02/02/20 11:42:00 EDT, Route to Pharmacy Electronically, [facility]/pharmacy #[id number], 165.1, cm, 01/07/20 [...] Refills, Maintenance, 08/14/21 15:27:00 EDT, Chew Tablet, [facility]/pharmacy #[id number], Partial fill upon [...] 09/20/21 15:12:00 EST, Route to Pharmacy Electronically, [facility]/pharmacy #[id number], Partial fill upon patient request if the prescription is for a schedule II opi... Start Date: 09/20/21 Stop Date: 01/18/22 Status: Ordered fexofenadine 180 mg oral tablet 1 tablet = 180 mg, By Mouth, Daily, # 30 tablet, 3 Refills, Maintenance, 09/21/21 15:08:00 EST, Tablet, [facility]/pharmacy #[id number], Partial fill upon patient request if the prescription is for a schedule II opioid drug., 165.1, cm, 09/20/21 14:28:00 EST, Height Start Date: 09/21/21 Status: Ordered Flovent Diskus 100 mcg/inh inhalation powder 1 puffs, Inhalation, 2 times a day, # 60 Unknown, 0 Refills, Maintenance, 04/16/21 19:52:00 EDT, [facility] ST[facility], 30, INHALE 1 PUFF BY MOUTH TWICE [...] FOR DIZZINESS, # 30 tablet, 2 Refills, [facility] ST[facility] 74489, 165.1, cm, 08/14/21 14:44:00 EDT, Height Start [...] tablet, 2 Refills, Maintenance, 01/05/22 14:37:00 EST, [facility]/pharmacy #[id number], 165.1, cm, 10/25/21 10:10:00 EST, Height Start Date: 01/05/22 Status: Ordered Nebulizer/Compressor See Instructions, # 1 each, Refills 0, Tot. Refills 0, Maintenance, for PRN albuterol inhaled, 11/21/17 16:27:13, Compound Start Date: 11/21/17 Status: Ordered omeprazole 20 mg oral enteric coated capsule 1 capsule, By Mouth, Daily, # 30 capsule, 2 Refills, [facility]78, 165.1, cm, 09/20/21 14:28:00 EST, Height Start Date: 10/05/21 Status: Ordered Plaquenil 200 mg oral tablet 400 mg, 2, tablet, By Mouth, Daily, Refills 0, Maintenance, 11/28/16 10:20:10 EST Start Date: 11/28/16 Status: Ordered pregabalin 150 mg oral capsule 1 capsule = 150 mg, By Mouth, 2 times a day, # 180 capsule, 1 Refills, Maintenance, 02/02/22 14:07:00 EDT, Capsule, [facility]/pharmacy #[id number], Partial fill upon patient request if the prescription is for a schedule II opioid drug., 165.1, cm, 02/02/22 13:29:... Start Date: 02/02/22 Status: Ordered riboflavin 400 mg oral capsule 1 capsule = 400 mg, By Mouth, Daily, # 100 capsule, 2 Refills, Maintenance, 09/12/20 18:13:00 EST, Capsule, [facility]/pharmacy #[id number], 165.1, cm, 05/10/20 [...] x per day BRand name covered by [facility], # 1 each, Refills 6, Tot. Refills 6, Maintenance, 09/29/21 9:04:00 EST, Instructions Replace Required Details Aerosol, Route to Pharmacy Electronically, [id number]... Start Date: 09/29/21 Status: Ordered Ventolin 90 [...] apnea (AIRAM ), on CPAP(Confirmed) Active *[facility]NETT/Leodan [phone]/[facility], active care coordination(Confirmed) Active Sjogren's syndrome(Confirmed) Active Smoker, 5-10 cigarettes per day since age 16. Quit once for 2.5 years(Confirmed) Active Systemic lupus(Confirmed) Active Chronic urticaria(Confirmed) Active Vertigo(Confirmed) Active Social History Social History Type Response Tobacco Started at age: 13 Y ears. Sex Female
--- OUTSIDE RECORDS SUMMARY | 2024-09-07 13:58 | XMS_ITS | Continuity of Care Document ---
Author Organization [facility] ter Address [address] [place] [id number] Care Team Providers Care It Application Support Analyst Name Role Phone Broderick Kidd MD Primary Care Physician [phone] Encounter [facility] Date(s): 09/23/23 - 09/23/[address] [address] Discharge Disposition: A-D/C Home Attending Physician: Suellen Lewis MD Admitting Physician: Suellen Lewis MD Referring Physician: Suellen Lewis MD Allergies, Adverse Reactions, Alerts No Known Medication Allergies Immunizations Given and Recorded Vaccine Date Status Refusal Reason tetanus/diphtheria/pertussis, acel(Tdap) 04/25/23 Given tetanus/diphtheria/pertussis, acel(Tdap) 1 01/28/13 Given [id number] bivalent booster vax 01/03/23 Recorded influenza virus [...] VIS DATE 11/27/2011 2Result Comment: received at [facility] on [facility] [place] 3Admin Note: flulaval vis given vis date 05/05/2012 4Result Comment: received 2nd dose at [facility] 5Result Comment: received at [facility] Medications acetaminophen 500 mg oral tablet 2 tablet, By Mouth, Every 8 hours, PRN NEEDED FOR PAIN, # 100 tablet, 3 Refills, Maintenance, 04/26/23 23:48:00 EDT, [id number], 165, cm, 04/25/23 8:59:00 EDT, Height, 100, kg, 04/04/23 16:15:00 EDT, Dry Weight Start Date: 04/26/23 Status: Ordered albuterol 0.083% inhalation solution 1 vials, Inhalation, Every 6 hours, PRN NEEDED FOR WHEEZING/SHORTNESS OF BREATH, # 300 mL, 2 Refills, Maintenance, 10/19/22 10:14:00 EST, [facility], 165.1, cm, 09/18/22 9:21:00 EST, Height Start Date: 10/19/22 Status: Ordered Agtqz-Npeunc-Ykgv 300 mg oral capsule 1 capsule, By Mouth, 2 times a day, # 60 capsule, 5 Refills, Maintenance, 05/12/23 20:20:00 EDT, [facility]/pharmacy #[id number], 165, cm, 05/08/23 10:12:00 EDT, Height, 100, kg, 04/04/23 16:15:00 EDT, Dry Weight Start Date: 05/12/23 Status: Ordered amitriptyline 10 mg oral tablet 1, tablet, By Mouth, Daily at bedtime, # 90 tablet, Refills 0, Maintenance, 08/13/23 13:34:00 EDT, Route to Pharmacy Electronically, [facility], 165, cm, 06/03/23 9:52:00 EDT, Height, 100, kg, 04/04/23 16:15:00 EDT, Dry Weight Start Date: 08/13/23 Status: Ordered ammonium lactate 5% topical lotion 1 application, Topically, 2 times a day, PRN Dry Skin, apply and rub in well, # 120 Gm, 0 Refills, Maintenance, 12/05/22 17:09:00 EST, Lotion, [facility]/pharmacy #[id number], Partial fill upon patient [...] 11/23/22 9:13:00 EST, Route to Pharmacy Electronically, [facility]/pharmacy #[id number], Partial fill upon patient [...] Gm, 2 Refills, Maintenance, 07/16/23 6:00:00 EDT, [id number], 25, APPLY TOPICALLY 4 TIMES A DAY, NEEDED NEUROPATHIC PAIN, 165, cm, 06/03/23 9:52:00 EDT, Height,... Start Date: 07/16/23 Status: Ordered famotidine 20 mg oral tablet 1, tablet, By Mouth, 2 times a day, # 180 tablet, Refills 1, Tot. Refills 1, Maintenance, 09/03/23 15:24:00 EDT, Route to Pharmacy Electronically, [facility]/pharmacy #[id number], 165, cm, 06/03/23 9:52:00 [...] patch, 0 Refills, Maintenance, 02/05/23 23:52:00 EDT, [id number], 30, APPLY 1 PATCH TOPICALLY DAILY,X30 DAYS NEEDED FOR PAIN MILD, REMOVE AFTER 12 HOURS, 168,... Start Date: 02/05/23 Status: Ordered loratadine 10 mg oral tablet 1, tablet, By Mouth, 2 times a day, # 60 tablet, Refills 0, Maintenance, 12/31/22 14:48:00 EST, Route to Pharmacy Electronically, [facility], 165.1, cm, 12/05/22 15:21:00 EST, Height Start Date: 12/31/22 Stop Date: 01/30/23 Status: Ordered losartan 50 mg oral tablet 50 mg, 1, tablet, By Mouth, Daily, # 30 tablet, Refills 3, Tot. Refills 3, Maintenance, 05/08/23 10:35:00 EDT, Route to Pharmacy Electronically, [facility]/pharmacy #[id number], Partial fill upon patient request if the prescription is for a schedule II opioid drug... Start Date: 05/08/23 Status: Ordered meclizine 25 mg oral tablet 1 tablet, By Mouth, 2 times a day, PRN NEEDED FOR DIZZINESS, # 60 tablet, 0 Refills, Maintenance, 05/30/23 16:12:00 EDT, [facility], 165, cm, 05/22/23 9:22:00 EDT, Height, 100, [...] the prescripti... Start Date: 07/07/23 Stop Date: 9/3/24 Status: Ordered ondansetron 8 mg oral tablet 1 tablet, By Mouth, Daily, PRN NEEDED FOR NAUSEA AND VOMITING, # 30 tablet, 0 Refills, Maintenance, 09/23/23 10:53:00 EST, [facility], 165, cm, 09/12/23 13:12:00 EST, Height, 100, [...] 5 Refills, Maintenance, 11/22/22 14:08:00 EST, Capsule, [facility]/pharmacy #[id number], Partial fill upon patient request if the prescription is for a schedule II opioid drug., 165.1, cm, 11/22/22 13:38:0... Start Date: 11/22/22 Status: Ordered riboflavin 400 mg oral capsule 1 capsule = 400 mg, By Mouth, Daily, # 100 capsule, 2 Refills, Maintenance, 05/12/23 20:23:00 EDT, Capsule, [facility]/pharmacy #[id number], 165, cm, 05/08/23 10:12:00 [...] Required Details Aerosol, Route to Pharmacy Electronically, [id number]... Start Date: 09/29/21 Status: Ordered Ventolin 90 mcg Inhaler 2, puffs, Inhalation, 4 times a day, PRN, Refills 0, Maintenance, 11/26/18 9:56:44 EST Start Date: 11/26/18 Status: Ordered Vitamin B-12 500 mcg oral tablet 1 tablet = 500 mcg, By Mouth, Daily, # 90 tablet, 1 Refills, Maintenance, 09/11/23 9:07:00 EST, Tablet, [facility]/pharmacy #[id number], Partial fill upon patient request if the prescription is for a schedule II opioid drug., 165, cm, 06/03/23 9:52:00 EDT, Height,... Start Date: 09/11/23 Stop Date: 03/09/24 Status: Ordered Vitamin B12 500 mcg oral tablet 1 tablet = 500 mcg, By Mouth, Daily, # 90 tablet, 1 Refills, Maintenance, 05/12/23 20:24:00 EDT, Tablet, [facility]/pharmacy #[id number], Partial fill upon patient [...] 06/03/23 - TSH 5.88, Free T4: 1.13 Vital Signs Most recent to oldest [Reference Range]: 1 2 3 Height 165 cm (09/23/23 1:46 PM) Weight 104 kg (09/23/23 1:46 PM) Oxygen Saturation [94-100 %] 98 % (09/23/23 2:56 PM) 100 % (09/23/23 2:45 PM) 98 % (09/23/23 1:46 PM) Pulse Rate [55-90 bpm] 83 bpm (09/23/23 1:46 PM) Body Mass Index [18.5-24.99 kg/m2] 38.2 kg/m2 *>HHI* (09/23/23 1:46 PM) Blood Pressure [90-138/55-84 mm Hg] 116/75mm Hg (09/23/23 2:56 PM) 103/53mm Hg (09/23/23 2:45 PM) 133/81mm Hg (09/23/23 1:46 PM) Respiratory Rate [16-30 br/min] 20 br/min (09/23/23 2:56 PM) 28 br/min (09/23/23 2:45 PM) 20 br/min (09/23/23 1:46 PM) Temperature [96.8-100.4 DegF] 97.5 DegF (09/23/23 1:46 PM) Mode of Delivery (Oxygen) Room air (09/23/23 2:56 PM) Room air (09/23/23 2:45 PM) Room air (09/23/23 1:46 PM) Temperature Route Femoral (09/23/23 1:46 PM) Social History Social History Type Response Smoking Status 5-9 cigarettes (betw een 1/4 to 1/2 pack)/day in last 30 days entered on: 04/04/23 Sex Female Note * Josephine Pleitez RN: PERFORM Event Display: Discharge/Transfer Note Hospital Authored Date: [id number] Nursing Discharge Note Entered On: 09/23/2023 14:45 EST Performed On: 09/23/2023 14:45 EST by Josephien Pleitez RN Nursing Discharge Note 2 Discharge Time : 09/23/2023 15:18 EST Patient Left Unit Via : Wheelchair Patient Accompanied Off Unit with : Responsible adult DC Instructions Provided & Signed by Pt : Yes Patient Understands D/C Instructions : Yes Patient Instructions Discharge Signed : Yes Did Pt have Specialty Bed or Wound Vac : No Josephine Pleitez RN - 09/23/2023 15:18 EST Discharge Level of Care at Discharge : Home/[facility] Josephine Pleitez RN - 09/23/2023 14:45 EST * Rebecca Vaca RN: PERFORM Event Display: Patient Education/Instruction Authored Date: [id number] Inpatient Adult Discharge Instructions [place] [id number] Name: TAYLOR SALAZAR : 1975 Visit: 09/23/2023 13:11:00 Current Date: 09/23/2023 15:09 Account: [id number] Inpatient Adult Discharge Instructions We would like [...] and their families. Surveys are administered by [employer] ?? If further treatment with your primary care physician or another doctor is recommended, it is important for you to keep the appointment. Call your primary care physician or return to the Emergency Department immediately if your condition worsens, fails to improve, or new symptoms develop. If you need to find a doctor, you can call [facility] Link for a referral at [phone] or toll free at [phone] ([phone] or log in to [email or web address].. ?? [facility], in keeping with [facility] guidance, no longer requires face masks [...] a health care chica of your choosing. [employer] is a website that allows you to securely view your medical information including your hospital discharge summary, office visit summaries, medications and follow-up visits. You can also request appointments, renew medications, and request access to your medical information using a health care chica of your choosing, or just ask a question. You can enroll at [email or web address] or register during your next office visit. You have been discharged from [facility], Patient Care Unit: ENDO. If you have any questions regarding these instructions after you leave, please call us and we will be happy to assist you. [facility] Your Care Team Attending Physician Suellen Lewis MD Discharging Providers Suellen Lewis MD Reason for Admission COLON SCREENING Tests Performed Below is a partial list of the tests performed during your hospitalization. You may have had other tests and procedures not included in this list. Please discuss all test results with your provider. Primary Care Provider Broderick Kidd MD Advance Directive Health Care Proxy on File Yes - Health Care Proxy Discharge Vitals Temperature: 97.5 DegF Height: 165 cm Pulse Rate: 83 bpm Weight: 104 kg Respiratory Rate: 20 br/min Body Mass Index:??38.2 kg/m2??Critical Systolic Blood Pressure: 116 mm Hg Body surface area: 2.18 Diastolic Blood Pressure: 75 mm Hg ?? Oxygen Saturation: 98 % ?? Studies Pending All tests and labs ordered during this hospital stay have been completed unless listed below. Please discuss all pending results with your provider listed above in these instructions. ?? No incomplete studies found What to do next Instructions From Your Doctor We completed your colonoscopy today We noted the following findings:Hemorrhoids?? -Follow up with your primary care physician -OK to resume your usual diet and home medications?? -Recommend starting a fiber supplementation (e.g. Konsyl, Metamucil, or Benefiber) for management of constipation -Repeat colonoscopy in 5 years? It is very important that you follow these instructions: ???You may have a mild sore throat or hoarseness after the procedure. This is because of the tube and the anesthetic.?You may feel nauseated today. This sometimes happens because of the medications that are used. This should get better within a few hours. If your nausea continues for more than 24 hours contact your doctor's office. .?Do not drive any motor vehicle or operate dangerous equipment. Weakness and lack of coordinationare the result of the medications that were administered during the procedure.?Do not conduct important business or sign any legal documents on the day of the procedure, sinceyou may feel drowsy from the medications that were administered today.?If you have redness or swelling at sites where medications were given, place a warm wet washcloth over the affected area for twenty minutes. If the symptoms persist for over two days please contact your doctor's office.?Call your doctor's office if you develop fever greater than 101 degrees or chills during the next 48 hours.?Please call for any issues or questions that may arise. Our office phone number is [phone] Discharge Orders Scheduled Follow-Up Appointments Saturday 10:30 AM EST ?? With: José Miguel Bustos Where: [address] [address]- Status: Pending You Need to Schedule the Following Appointments Follow Up with??Follow up with primary care as needed Follow Up with??Broderick Kidd When:??In 0 days Discharge Medications TAYLOR SALAZAR :1975 Visit Date:09/23/2023 Medications: Please continue your medications until treatment is completed or stopped by your provider. Medications not listed below should be discontinued. Discuss any questions related to medications with your provider. What How Much When Why Instructions Next Dose Unchanged Acetaminophen (acetaminophen 500 mg oral tablet) 2 tab(s) Oral Every 8 hours as needed for NEEDED FOR PAIN Unchanged Albuterol (albuterol 0.083% inhalation solution) 1 vials Inhalation Every 6 hours as needed for NEEDED FOR WHEEZING/SHORTNESS OF BREATH Unchanged Albuterol (Ventolin 90 mcg Inhaler) 2 puff(s) Inhalation 4 times a day as needed for Wheezing/Shortness of Breath Unchanged alpha-lipoic acid (Iemhp-Ndqxbh-Iano 300 mg oral capsule) 1 capsule Oral Twice a day Unchanged amiTRIPTYLINE (amitriptyline 10 mg oral tablet) 1 tab(s) Oral Daily at Bedtime Unchanged Ammonium Lactate 12% (ammonium lactate 5% topical lotion) 1 chica Topically Twice a day as needed for Dry Skin Dry skin dermatitis Duration: 14 Days apply and rub in well ?? Unchanged Ascorbic Acid (Vitamin C) Oral Daily Unchanged Budesonide-Formoterol (Symbicort 80mcg/ 4.5mcg Inhaler) See instructions 1 puff 2 x per day BRand name covered by hne, As needed for Wheezing/ Shortness of Breath ?? Unchanged Calcium And Vitamin D Combination (Calcium 250 mg + Vitamin D 125 IU Tablet) Oral Twice a day Unchanged Clonazepam (clonazepam 0.5 mg oral tablet) 1 Milligram Oral 3 times a day Unchanged Clonidine (cloNIDine 0.1 mg oral tablet) 1 tab(s) Oral Daily at Bedtime Unchanged Cyanocobalamin (cyanocobalamin 1000 mcg oral tablet) 1 tab(s) Oral Daily Unchanged Cyanocobalamin (Vitamin B-12 500 mcg oral tablet) 1 tab(s) Oral Daily Duration: 90 Days Unchanged Cyanocobalamin (Vitamin B12 500 mcg oral tablet) 1 tab(s) Oral Daily Unchanged Diclofenac Topical (diclofenac 1% topical gel) See instructions APPLY TOPICALLY 4 TIMES A DAY, NEEDED NEUROPATHIC PAIN ?? Unchanged Duloxetine (Cymbalta 30 mg oral enteric coated capsule) 1 capsule Oral Twice a day Unchanged Durable Medical Equipment (Bilateral Circaid lower leg Juxtafits) See instructions 2 pair Bilateral Circaid lower leg Juxtafits dx bilateral lower extremity lympahdema 189.0 ?? Unchanged Durable Medical Equipment (Compression Stockings) See instructions surgical, calf length 20-30 mm Hg ONE pair for lower extermity edema R22.43 ?? Unchanged Famotidine (famotidine 20 mg oral tablet) 1 tab(s) Oral Twice a day Unchanged Hydroxychloroquine (Plaquenil 200 mg oral tablet) 2 tab(s) Oral Daily Unchanged HydrOXYzine 25 Milligram Oral Twice a day as needed for as needed for itching Unchanged Lidocaine Topical (lidocaine 5% topical film) 1 patch(es) Topically Daily as needed for NEEDED FOR PAIN MILD, REMOVE AFTER 12 HOURS Unchanged Loratadine (loratadine 10 mg oral tablet) 1 tab(s) Oral Twice a day Duration: 30 Days Unchanged Losartan (losartan 50 mg oral tablet) 1 tab(s) Oral Daily Unchanged Meclizine (meclizine 25 mg oral tablet) 1 tab(s) Oral Twice a day as needed for NEEDED FOR DIZZINESS Unchanged mirabegron (Myrbetriq 50 mg oral tablet, extended release) 1 tab(s) Oral Daily DO NOT CRUSH OR CHEW. ?? Unchanged Miscellaneous Rx (RIBOFLAVIN 400 MG TABLET) 1 tab(s) Oral Daily Unchanged Montelukast (Singulair 10 mg oral tablet) 1 tab(s) Oral Daily in PM Unchanged Naratriptan (naratriptan 2.5 mg oral tablet) 1 tab(s) Oral Daily as needed for for migraine headache may repeat dose once in 4 hours ?? Unchanged Ondansetron (ondansetron 8 mg oral tablet) 1 tab(s) Oral Daily as needed for NEEDED FOR NAUSEA AND VOMITING Unchanged PredniSONE (predniSONE 10 mg oral tablet) Unchanged Pregabalin (pregabalin 200 mg oral capsule) 1 capsule Oral Twice a day Unchanged Riboflavin (riboflavin 400 mg oral capsule) 1 capsule Oral Daily Unchanged Risperidone (RisperDAL 1 mg oral tablet) 1 tab(s) Oral Daily at Bedtime Test Results Below is a partial list of the most recent Laboratory test results done prior to this discharge. You may have had other tests and procedures not included in this list. Please discuss all test resultswith your provider. Allergies (NKA means No Known Allergies) No Known Medication Allergies Problems Active Problems??(23) Anemia?? Anxiety?? Asthma?? Chronic constipation?? Chronic urticaria?? De Quervain's tenosynovitis?? Depression?? Discoid lupus?? Family history of breast cancer in mother (in her 30's)?? Fibromyalgia syndrome?? Gastroesophageal reflux disease (GERD)?? Last pap smear 09/23/12 negative with negative HPV. Status post total vaginal hysterectomy, no furth?? Lung nodules, bilateral?? Migraines?? Mixed urinary incontinence urge and stress (primarily urge)?? Obesity severe ??(BMI 35.0-39.9) with comorbidity?? Obstructive sleep apnea (AIRAM), on CPAP?? Sjogren's syndrome?? Small fiber neuropathy, bilateral legs?? Smoker, 5-10 cigarettes per day since age 16. Quit once for 2.5 years?? Subclinical hypothyroidism?? Systemic lupus?? Vertigo?? Education Materials Below is the list of Educational Leaflet Providered with your Discharge Instructions. Surgery Medical Daystay Surgical Overnight Discharge Instructions?? Hemorrhoids Discharge Instructions?? Valuables and Belongings I fully understand and agree that [facility] accepts no responsibility for all my personal [...] encouraged to send valuables and belongings home. ? Other Discharge Information ? Pulmonary Rehab Status?? Pulmonary Rehab Discharge Status?? Respiratory Rate: 20 br/min ? Common Emergency Awareness Tips IS IT A [...] are strongly encouraged to quit. Please call [facility] [employer] Link at [phone] or [phone]) or log in to [email or web address] for referrals to smoking cessation programs. ?? 670 Suicide & Crisis Lifeline is available 27/05 if you or someone you know needs to find a reason to keep living. By calling 541 you'll be connected to a skilled, trained counselor at a crisis center in your area. INPATIENT DISCHARGE INSTRUCTIONS SIGNATURE TAYLOR HOLGUIN Location:[facility] Registration Date and Time:09/23/2023 13:11 EST Primary Care Physician: Broderick Kidd MD, Attending Physician: Debbie MEHTA, Suellen Absar, I TAYLOR SALAZAR, have received the above patient education materials/instructions and have verbalized understanding. If ambulance or transport services are being used I further acknowledge being given a choice of service. ?? If you need to contact me, please call me at this number: . Patient/Peripatologist Name: Patient/Peripatologist Signature: Relationship to Patient: Witness Name/Signature: Date: * Josephine Pleitez RN: PERFORM, SIGN, VERIFY Event Display: Patient Education Handout Authored Date: [id number] * Rebecca Vaca RN: PERFORM Event Display: Patient Education Leaflets Authored Date: [id number] Surgery Medical Daystay Surgical Overnight Discharge Instructions ?? 295 Medical Daystay/Surgical Overnight Discharge Instructions ? Since your coordination and judgment may be altered by medication and/or anesthesia, a responsible adult must drive you home from the hospital. ? If you have received medication for pain or sedation while under our care, you should not drive, operate machinery, drink alcohol, or sign any legal documents for 24 hours.?? You should have someone with you at home tonight. ? Remain at home the day of discharge.?? You may be up and about unless otherwise instructed by your physician. ? You may resume your daily prescription medication schedule.?? Any depressant medication should be avoided for 24 hours unless otherwise instructed by your surgeon or anesthesiologist. ? Call your physician for a follow-up appointment.? If you experience unusual or severe pain not relied by your pain medication, excessive bleedingor drainage, persistent nausea and vomiting, excessive swelling or redness, foul odor from incisionsite or fever over 100.6F, you need to call your physician. ? A follow-up phone call by a nurse will be made the day after your procedure.?? If you have stayed with us over night, you will not be receiving a follow-up phone call. ? Nausea and vomiting are a common side effect of prescription pain medication.?? We recommend that pills are not taken on an empty stomach.?? While taking any prescription pain medication you should not drive or drink alcohol. ? * Josephine Pleitez RN: PERFORM Event Display: Patient Education Leaflets Authored Date: [id number] Hemorrhoids Discharge Instructions ?? 672 ??Hemorrhoids Discharge Instructions ??You must carefully read the Consumer Information Use and Disclaimer below in order to understand and correctly use this information?? About this topic Hemorrhoids are swollen veins in the rectum. Your rectum is where stool leaves your body. You may be able to see or feel your hemorrhoids outside of your body, but some hemorrhoids are inside of yourrectum and cannot be seen. Hemorrhoids can cause itching, pain, and bleeding. Being constipated or having hard stools can make your hemorrhoids worse.?? What care is needed at home? Ask your doctor what you need to do when you go home. Make sure??you ask questions if you do not understand what the doctor says. This??way you will know what you need to do. ??? Soak your bottomin a few inches of warm water for 10 to 15 minutes??at a time. You can do this 2 to 3 times each day. Do not add soap,??bubble bath, or anything to the water. ??? Use nypc-ryo-glwilyj medicines to treat your hemorrhoids. These??include ointments and creams to help with pain and swelling. You can??also use a product like witch zahira to help dry out the skin in the area. ??? To help with constipation: ??? Use stool softeners when needed. ??? Eat high-fiber foods. These include whole grains, fruits, and??vegetables. ??? Drink plenty of water and other fluids each day. This helps to??keep your stools soft. ??? Set a regular schedule to try and have a bowel movement. Do??not ignore the urge to go to the bathroom. Don???t hold it in. ??? Give yourself plenty of time to have a bowel movement, but do not linger on the toilet either, by sitting and reading for a long time. ??? Do mild exercise each day like taking a walk. ??? Avoid heavy lifting or straining while the hemorrhoid is healing. ?? What follow-up care is needed? If your problem does not get better, other care may be needed. Your doctor may ask you to make visits to the office to check on your progress. Be sure to keep these visits.?? What drugs may be needed? The doctor may order drugs to: ??? Help with pain and swelling ??? Ease itching ??? Soften stools ?? Will physical activity be limited? Working out can help with digestion. It might help keep you from having hard stools. Ask your doctor about the best kind of exercise for you. ?? What problems could happen? You may have very bad bleeding. ??? Sometimes, treatments do not work. Some hemorrhoids are very??large. You might need surgery for either of these. ?? When do I need to call the doctor? You have a lot of bleeding from your rectum. ??? Your bowel movement looks like tar. ??? You are not able to pass stool because of pain from your??hemorrhoids. ??? Your pain gets worse and is nothelped by fsnz-dcn-faykzsp??medicines, warm water, or your home care. ??? You have a fever of 100.4??F (38??C) or higher. ?? Teach Back: Helping You Understand The Teach Back Method helps you understand the information we are giving you. After you talk with the staff, tell them in your own words what you learned. This helps to make sure the staff has described each thing clearly. It also helps to explain things that may have been confusing. Before going home, make sure you can do these: ??? I can tell you about my condition. ??? I can tell you what may help ease my pain. ??? I can tell you what I will do if I have blood in my rectum. Where can I learn more?[employer]https://familydoctor.or g/condition/hemorrhoids/National Digestive Disease Information Clearinghousehttps://www.niddk.nih.go v/health-information/digestive-diseases/hemorrhoids/definition-factsLast Reviewed [id number] Information Use and Disclaimer:This generalized information is a limited summary of diagnosis,treatment, and/or medication information. It is not meant to be comprehensive and should be used asa tool to help the user understand and/or assess potential diagnostic and treatment options. It does NOT include all information about conditions, treatments, medications, side effects, or risks thatmay apply to a specific patient. It is not intended to be medical advice or a substitute for the medical advice, diagnosis, or treatment of a health care provider based on the health care provider's examination and assessment of a patient???s specific and unique circumstances. Patients must speak with a health care provider for complete information about their health, medical questions, and treatment options, including any risks or benefits regarding use of medications. This information does not endorse any treatments or medications as safe, effective, or approved for treating a specific patient. 525j.com.cn. and its affiliates disclaim any warranty or liability relating to this information or the use thereof. The use of this information is governed by the Terms of Use, available at??htt ps://www.Rocket.La.Deadeye Marksmanship/en/know/yzlxjmex-oerewsszbmxkb-wkcvvEwjb Updated 12/27/21? Patient Care team information Care Team Personnel Name: Broderick Kidd MD Position: [facility] Resident Member Role: PCP Address: Address: [address] [place] [address] [place] [address]- Care Team Related Persons Name: MARIO GERARD Address: home [address] [place] [address] Name: CARI GARCÍA Address: home [address] [place] [address] Name: NOELLE MAY
--- OUTSIDE RECORDS SUMMARY | 2024-09-07 13:58 | XMS_ITS | Continuity of Care Document ---
[facility] Organization [facility] Address [address], [address]t [place] [address]- Care Team Providers Care Theater Usher Name Role Phone Otilia MEHTA, Reggie Primary Care Physic astrid [place] [facility] [place] 02[facility]09[facility]20 [facility] [address], 4th [place] [address]- Attending Physician: Melba Joshi MD Admitting Physician: Melba Joshi MD Referring Physician: Otilia MEHTA, Reggie Allergies, [...] Inhalation, 2 times a day, Prescribed by Lead Technical Architect., # 1 each, Refills 11, Tot. Refills 11, Maintenance, 03/13/18 11:00:50 EDT, Inhaler, Route to Pharmacy Electronically, [id number], [facility]/pharmacy #[id number] Start Date: 03/13/18 Status: Ordered albuterol 0.083% inhalation solution 3 mL = 2.5 mg, Neb, Every 6 hours, PRN Wheezing/Shortness of Breath, # 360 mL, 2 Refills, Maintenance, 12/04/19 15:27:00 EST, [facility]/pharmacy #207, 165.1, cm, 12/04/19 14:54:00 EST, Height, 86.4, kg, 08/10/19 14:42:00 EDT, Dry Weight Start Date: 12/04/19 Status: Ordered Lety Allergy 60 mg oral tablet 3 tablet = 180 mg, By Mouth, Daily, Prescribed by Guard Captain in [place]., # 90 tablet, 0 Refills, Maintenance, 02/16/16 14:46:50, Tablet Start Date: 02/16/16 Stop Date: 03/17/16 Status: Ordered amitriptyline 10 mg oral tablet 10 mg, 1, tablet, By Mouth, Daily at bedtime, # 30 tablet, Refills 5, Tot. Refills 5, Maintenance, 06/30/19 15:15:49 EDT, Route to Pharmacy Electronically, [id number], [facility]/pharmacy #[id number] Start Date: 06/30/19 Status: Ordered AUTO [...] 02/02/20 11:42:00 EDT, Route to Pharmacy Electronically, [facility]/pharmacy #[id number], 165.1, cm, 01/07/20 14:51:00 EST, [...] BY MOUTH DAILY,INSTR:DO NOT CRUSH OR CHEW, [facility]/pharmacy #0977 Start Date: 07/07/19 Status: Ordered Nebulizer/Compressor See Instructions, # 1 each, Refills 0, Tot. Refills 0, Maintenance, for PRN albuterol inhaled, 11/21/17 16:27:13, Compound Start Date: 11/21/17 Status: Ordered omeprazole 20 mg oral enteric coated capsule 1 capsule = 20 mg, By Mouth, Daily, # 30 capsule, 2 Refills, Maintenance, 01/07/20 15:11:00 EST, [facility]/pharmacy #2071, 165.1, cm, 01/07/20 14:51:00 EST, [...] tablet, 2 Refills, Maintenance, 01/07/20 15:12:00 EST, [facility]/pharmacy #2071, 165.1, cm, 01/07/20 14:51:00 EST, [...] apnea (AIRAM ), on CPAP(Confirmed) Active *BHN/BHCP/Leodan Rich-[phone]/Health snf, active care coordination(Confirmed) Active Sjogren's syndrome(Confirmed) Active Smoker, 5-10 cigarettes per day since age 16. Quit once for 2.5 years(Confirmed) Active Systemic lupus(Confirmed) Active Chronic urticaria(Confirmed) Active Vertigo(Confirmed) Active Social History Social History Type Response Tobacco Started at age: 13 Y ears. Sex Female
--- OUTSIDE RECORDS SUMMARY | 2024-09-07 13:58 | XMS_ITS | Continuity of Care Document ---
Author Organization [facility] Address [address] [place] [address]- Care Team Providers Care Research Laboratory Technician Name Role Phone Giana MEHTA, Ashley Primary Care Physician [phone] [facility]counter [facility] Date[facility]): 04[facility]23 - 05/02/23 [facility] [address] [place] [id number] Allergies, Adverse Reactions, Alerts No Known Medication Allergies Immunizations Given and Recorded Vaccine Date Status Refusal Reason tetanus/diphtheria/pertussis, acel(Tdap) 04/25/23 Given tetanus/diphtheria/pertussis, acel(Tdap) 1 01/28/13 Given [id number] bivalent booster vax 01/03/23 Recorded influenza virus [...] VIS DATE 11/27/2011 2Result Comment: received at [facility] on [facility] in [place] 3Admin Note: flulaval vis given vis date 05/05/2012 4Result Comment: received 2nd dose at [facility] 5Result Comment: received at [facility] Medications acetaminophen 500 mg oral tablet 2 tablet, By Mouth, Every 8 hours, PRN NEEDED FOR PAIN, # 100 tablet, 3 Refills, Maintenance, 04/26/23 23:48:00 EDT, [facility], 165, cm, 04/25/23 8:59:00 EDT, Height, 100, kg, 04/04/23 16:15:00 EDT, Dry Weight Start Date: 04/26/23 Status: Ordered albuterol 0.083% inhalation solution 1 vials, Inhalation, Every 6 hours, PRN NEEDED FOR WHEEZING/SHORTNESS OF BREATH, # 300 mL, 2 Refills, Maintenance, 10/19/22 10:14:00 EST, [facility], 165.1, cm, 09/18/22 9:21:00 EST, Height Start Date: 10/19/22 Status: Ordered Qkuhv-Felvgc-Qmpb 300 mg oral capsule 1 capsule, By Mouth, 2 times a day, OTC N/C., # 60 capsule, 5 Refills, Maintenance, 08/17/21 15:40:00 EDT, [facility]/pharmacy #2071, 165.1, cm, 08/14/21 14:44:00 EDT, Height Start Date: 08/17/21 Status: Ordered amitriptyline 10 mg oral tablet 1, tablet, By Mouth, Daily at bedtime, # 30 tablet, Refills 5, Maintenance, 01/21/23 11:23:00 EDT, Route to Pharmacy Electronically, [facility], 168, cm, 01/15/23 7:16:00 EDT, Height, 99.4, kg, 01/15/23 7:16:00 EDT, Dry Weight Start Date: 01/21/23 Status: Ordered amLODIPine 5 mg oral tablet 1 tablet, By Mouth, Daily in AM, # 60 tablet, 0 Refills, Maintenance, 01/31/23 19:32:00 EDT, [facility], 168, cm, 01/15/23 7:16:00 EDT, Height, 99.4, kg, 01/15/23 7:16:00 EDT, Dry Weight Start Date: 01/31/23 Status: Ordered ammonium lactate 5% topical lotion 1 application, Topically, 2 times a day, PRN Dry Skin, apply and rub in well, # 120 Gm, 0 Refills, Maintenance, 12/05/22 17:09:00 EST, Lotion, [facility]/pharmacy #0151, Partial fill upon patient request ifthe prescription [...] 11/23/22 9:13:00 EST, Route to Pharmacy Electronically, [facility]/pharmacy #2071, Partial fill upon patient [...] Gm, 2 Refills, Maintenance, 05/01/23 20:57:00 EDT, [facility] STORE 96122, 25, APPLY TOPICALLY 4 TIMES A DAY, NEEDED NEUROPATHIC PAIN, 165, cm, 04/25/23 8:59:00 EDT, Height... Start Date: 05/01/23 Status: Ordered famotidine 20 mg oral tablet 1, tablet, By Mouth, 2 times a day, # 60 tablet, Refills 5, Tot. Refills 5, Maintenance, 02/27/23 10:38:00 EDT, Route to Pharmacy Electronically, [facility]/pharmacy #2071, 168, cm, 01/15/23 7:16:00 EDT, [...] patch, 0 Refills, Maintenance, 02/05/23 23:52:00 EDT, [facility] STORE 99071, 30, APPLY 1 PATCH TOPICALLY DAILY,X30 DAYS NEEDED FOR PAIN MILD, REMOVE AFTER 12 HOURS, 168,... Start Date: 02/05/23 Status: Ordered loratadine 10 mg oral tablet 1, tablet, By Mouth, 2 times a day, # 60 tablet, Refills 0, Maintenance, 12/31/22 14:48:00 EST, Route to Pharmacy Electronically, [facility] STORE 26047, 165.1, cm, 12/05/22 15:21:00 EST, Height Start Date: 12/31/22 Stop Date: 01/30/23 Status: Ordered meclizine 25 mg oral tablet 1 tablet, By Mouth, 2 times a day, PRN NEEDED FOR DIZZINESS, Take as needed for dizziness, # 60 tablet, 2 Refills, Maintenance, 12/05/22 16:13:00 EST, [facility]/pharmacy #2071, 165.1, cm, 12/05/22 15:21:00 EST, [...] tablet, 11 Refills, Maintenance, 07/31/22 16:07:00 EDT, [facility]/pharmacy #207, 165.1, cm, 07/12/22 17:15:00 EDT, Height Start Date: 07/31/22 Status: Ordered NuLYTELY with Flavor Packs oral powder for reconstitution 240 mL, By Mouth, Every 10 minutes, May substitute any PEG 3350 solution available SPLIT PREP METHOD, # 1 each, 0 Refills, Maintenance, 01/14/23 17:00:00 EDT, REC Powder, [facility]/pharmacy #2071, test date 01/15/23, 240 mL [...] 5 Refills, Maintenance, 11/22/22 14:08:00 EST, Capsule, [facility]/pharmacy #2071, Partial fill upon patient request if the prescription is for a schedule II opioid drug., 165.1, cm, 11/22/22 13:38:0... Start Date: 11/22/22 Status: Ordered riboflavin 400 mg oral capsule 1 capsule = 400 mg, By Mouth, Daily, # 100 capsule, 2 Refills, Maintenance, 09/12/20 18:13:00 EST, Capsule, [facility]/pharmacy #2071, 165.1, cm, 05/10/20 10:01:00 EDT, [...] tablet, 1 Refills, Maintenance, 08/17/21 15:39:00 EDT, [facility]/pharmacy #2071, 165.1, cm, 08/14/21 14:44:00 EDT, Height Start Date: 08/17/21 Status: Ordered Symbicort 80mcg/4.5mcg Inhaler See Instructions, PRN, 1 puff 2 x per day BRand name covered by [facility], # 1 each, Refills 6, Tot. Refills 6, Maintenance, 09/29/21 9:04:00 EST, Instructions Replace Required Details Aerosol, Route to Pharmacy Electronically, [id number]... Start Date: 09/29/21 Status: Ordered Ventolin 90 [...] Refills, Maintenance, 09/20/21 15:14:00 EST, Chew Tablet, [facility]/pharmacy #2071, Partial fill upon patient [...] Team Personnel Name: Ashley Faria MD [facility] Resident Member Role: PCP Address: Address: [address] [place] [address] [place] [address]- Care Team Related Persons Name: MARIO GERARD Address: home [address] [place] [address] Name: CARI GARCÍA Address: home [address] [address] Name: NOELLE MAY
--- OUTSIDE RECORDS SUMMARY | 2024-09-07 13:58 | XMS_ITS | Continuity of Care Document ---
Author Organization [facility] Address [address], [address], [address] [place] [address]- Care Team Providers Care Circulation Supervisor Name Role Phone Broderick Kidd MD Primary Care Physician [facility]counter [facility] Date(s): 06/20/24 - 07/20/24 [facility] [address], [address] [place] [id number] Allergies, Adverse Reactions, Alerts No Known Allergies [...] 04/25/23 Given tetanus/diphtheria/pertussis, acel(Tdap) 3 01/28/13 Given [id number] bivalent booster vax 01/03/23 Recorded SARS-CoV-2 (COVID-19) [...] 07/05/08 Recor ded 1Result Comment: received at [facility] on [facility] in [place] 2Admin Note: flulaval vis given vis date 05/05/2012 3Admin Note: VIS GIVEN VIS DATE 11/27/2011 4Result Comment: received 2nd dose at [facility] 5Result Comment: received at [facility] Medications acetaminophen 500 mg oral tablet 2 tablet, By Mouth, Every 8 hours, PRN NEEDED FOR PAIN, # 100 tablet, 3 Refills, Maintenance, 10/11/23 11:48:00 EST, [facility]/pharmacy #2071, 165, cm, 09/27/23 10:21:00 EST, Height, 100, kg, 04/04/23 16:15:00 EDT, Dry Weight Start Date: 10/11/23 Status: Ordered Ajovy Autoinjector 225 mg/1.5 mL subcutaneous solution = 225 mg, Subcutaneous Injection, Every 28 days, # 1 kit, 5 Refills, Maintenance, 03/16/24 12:10:00EDT, [facility], Partial fill upon patient request if the prescription is for a schedule II opioid drug., 165, cm, 03/10/24 10:03:00 E... Start Date: 03/16/24 Status: Ordered amitriptyline 10 mg oral tablet 1, tablet, By Mouth, Daily at bedtime, # 90 tablet, Refills 0, Maintenance, 06/10/24 15:49:00 EDT, Route to Pharmacy Electronically, [facility] 79264, 173, cm, 06/08/24 14:38:00 EDT, Height, 101.4, kg, 04/27/24 14:38:00 EDT, Dry Weight Start Date: 06/10/24 Status: Ordered ammonium lactate 5% topical lotion 1 application, Topically, 2 times a day, PRN Dry Skin, apply and rub in well, # 120 Gm, 0 Refills, Maintenance, 12/05/22 17:09:00 EST, Lotion, [facility]/pharmacy #2071, Partial fill upon patient request ifthe prescription is for a schedule II opioid drug.,... Start Date: 12/05/22 Stop Date: 12/19/22 Status: Ordered aspirin 81 mg oral delayed release tablet = 81 mg, By Mouth, Daily, Refill per PCP or Public Speaking Teacher, # 30 tablet, 2 Refills, Maintenance, 04/29/24 12:54:00 EDT, EC Tablet, [facility], Partial fill upon patient request if the prescription is for a schedule II opioid drug., 173, cm... Start Date: 04/29/24 Status: Ordered atorvastatin 80 mg oral tablet = 80 mg, By Mouth, Daily at bedtime, Refill per PCP or Public Speaking Teacher, # 90 capsule, 3 Refills, Maintenance, 05/21/24 18:58:00 EDT, Tablet, [facility]/pharmacy #2071, Partial fill upon patient request [...] 11/23/22 9:13:00 EST, Route to Pharmacy Electronically, [facility]/pharmacy #2953, Partial fill upon patient request if the [...] Gm, 2 Refills, Maintenance, 05/14/24 12:20:00 EDT, [facility] 05043, 25, APPLY TOPICALLY 4 TIMES A DAY, [...] EDT, Route to Pharmacy Electronically, [facility], 165, cm, 02/06/24 9:54:00 EDT, Height, 100, kg, 04/04/23 16:15:00 EDT, Dry Weight Start Date: 02/24/24 Status: Ordered lidocaine 5% topical film 1 patch, Topically, Daily, PRN NEEDED FOR PAIN MILD, REMOVE AFTER 12 HOURS, # 30 patch, 0 Refills, Maintenance, 02/05/23 23:52:00 EDT, [facility] 08829, 30, APPLY 1 PATCH TOPICALLY DAILY,X30 DAYS NEEDED FOR PAIN MILD, REMOVE AFTER 12 HOURS, 168,... Start Date: 02/05/23 Status: Ordered loratadine 10 mg oral tablet 1, tablet, By Mouth, 2 times a day, # 60 tablet, Refills 0, Maintenance, 12/31/22 14:48:00 EST, Route to Pharmacy Electronically, [facility], 165.1, cm, 12/05/22 15:21:00 EST, Height Start Date: 12/31/22 Stop Date: 01/30/23 Status: Ordered losartan 50 mg oral tablet 1 tablet, By Mouth, Daily, # 90 tablet, 1 Refills, Maintenance, 03/10/24 12:55:00 EDT, [facility], 165, cm, 03/10/24 10:03:00 EDT, Height, 100, kg, 04/04/23 16:15:00 EDT, Dry Weight Start Date: 03/10/24 Status: Ordered meclizine 25 mg oral tablet 1 tablet, By Mouth, 2 times a day, PRN NEEDED FOR DIZZINESS, # 60 tablet, 1 Refills, Maintenance, 05/27/24 11:25:00 EDT, [facility]/pharmacy #2071, 173, cm, 05/27/24 11:05:00 EDT, Height, 101.4, kg, 04/27/24 14:38:00 EDT, Dry Weight Start Date: 05/27/24 Status: Ordered metoprolol 25 mg oral tablet, extended release 12.5 mg, 0.5, tablet, By Mouth, Daily, Refill per PCP or Public Speaking Teacher, # 90 tablet, Refills 3, Tot.Refills 3, Maintenance, 05/21/24 18:58:00 EDT, Route to Pharmacy Electronically, [facility]/pharmacy #2071, Partial fill upon patient request if the prescript... Start Date: 05/21/24 Stop Date: 09/18/24 Status: Ordered Myrbetriq 50 mg oral tablet, extended release 1 tablet, By Mouth, Daily, DO NOT CRUSH OR CHEW., # 30 tablet, 2 Refills, Maintenance, 06/23/24 10:38:00 EDT, [facility], 173, cm, 06/08/24 14:38:00 EDT, Height, 101.4, kg, 04/27/24 14:38:00 EDT, Dry Weight Start Date: 06/23/24 Status: Ordered naratriptan 2.5 mg oral tablet 1 tablet, By Mouth, Daily, PRN NEEDED FOR MIGRAINE, MAY REPEAT DOSE AFTER 4 HOURS IF NEEDED, # 18 tablet, 1 Refills, Maintenance, 05/11/24 23:04:00 EDT, [facility], 173, cm, 04/29/24 7:26:00 EDT, Height, 101.4, kg, 04/27/24 14:38:00 EDT, Dry W... Start Date: 05/11/24 Status: Ordered ondansetron 8 mg oral tablet 1 tablet, By Mouth, Daily, PRN NEEDED FOR NAUSEA AND VOMITING, # 30 tablet, 0 Refills, Maintenance, 09/23/23 10:53:00 EST, [facility], 165, cm, 09/12/23 13:12:00 EST, Height, 100, kg, 04/04/23 16:15:00 EDT, Dry Weight Start Date: 09/23/23 Status: Ordered pantoprazole 20 mg oral delayed release tablet = 20 mg, By Mouth, Daily, Take for next 12 months while taking aspirin and Brillinta. Refill per PCP or Public Speaking Teacher., # 90 tablet, 3 Refills, Maintenance, 05/21/24 [...] capsule, 5 Refills, Maintenance, 02/27/24 6:10:00EDT, Capsule, [facility]/pharmacy #2071, Partial fill upon patient request [...] Replace Required Details Aerosol, Route toPharmacy Electronically, [id number]... Start Date: 10/11/23 Status: Ordered ticagrelor 90 mg oral tablet 1 tablet = 90 mg, By Mouth, 2 times a day, Refill per PCP or Public Speaking Teacher, # 60 tablet, 2 Refills, Maintenance, 04/29/24 12:57:00 EDT, Tablet, [facility], Partial fill upon patient request if the prescription is for a schedule II opioid... Start Date: 04/29/24 Status: Ordered Ventolin HFA 108 mcg/inh inhalation aerosol with adapter 2 puffs, Inhalation, Every 6 hours, PRN NEEDED FOR WHEEZE OR FOR SHORTNESS OF BREATH, # 18 each,5 Refills, Maintenance, 05/12/24 11:06:00 EDT, [facility], 173, cm, 04/29/24 7:26:00 EDT, Height, 101.4, [...] Active 1Follows with therapist and psychiatrist at [place] per previous notes 2PFTs show no obstruction. However has h/o asthma. Ct chest in 07/27 and pulm note says restrictive lung disease mild similiar to findings on PFT 3Follows with therapist and psychiatrist at [place] per previous notes 4Sleep study in 2016. [...] Care Nurse Name: Broderick Kidd MD Position: [facility] Resident Member Role: PCP Address: Address: [address] [place] [address] [place] [address]- Care Team Related Persons Name: MOUSTAPHA MARIO Address: home [address] [place] [address] Name: CARI GARCÍA Address: home [address] [facility] [address] [place] [address] Name: NOELLE MAY
--- OUTSIDE RECORDS SUMMARY | 2024-09-07 13:58 | XMS_ITS | Continuity of Care Document ---
Author Organization [facility] Address [address] [place] [address]- Care Team Providers Care Supervisor Bonding Name Role Phone Otilia MEHTA, Kaaaliyah Primary Care Physic astrid [facility]): [facility]20 - 01/17/20 [facility] [address] [place] [id number]- [facility] Attending Physician: Sosa Joy Admitting Physician: AdmSosa [...] Inhalation, 2 times a day, Prescribed by Last Pattern Grader., # 1 each, Refills 11, Tot. Refills 11, Maintenance, 03/13/18 11:00:50 EDT, Inhaler, Route to Pharmacy Electronically, [id number], [facility]/pharmacy #2071 Start Date: 03/13/18 Status: Ordered albuterol 0.083% inhalation solution 3 mL = 2.5 mg, Neb, Every 6 hours, PRN Wheezing/Shortness of Breath, # 360 mL, 2 Refills, Maintenance, 12/04/19 15:27:00 EST, [facility]/pharmacy #2071, 165.1, cm, 12/04/19 14:54:00 EST, Height, 86.4, kg, 08/10/19 14:42:00 EDT, Dry Weight Start Date: 12/04/19 Status: Ordered Lety Allergy 60 mg oral tablet 3 tablet = 180 mg, By Mouth, Daily, Prescribed by Mold Operator in [place]., # 90 tablet, 0 Refills, Maintenance, 02/16/16 14:46:50, Tablet Start Date: 02/16/16 Stop Date: 03/17/16 Status: Ordered amitriptyline 10 mg oral tablet 10 mg, 1, tablet, By Mouth, Daily at bedtime, # 30 tablet, Refills 5, Tot. Refills 5, Maintenance, 06/30/19 15:15:49 EDT, Route to Pharmacy Electronically, [id number], [facility]/pharmacy #2071 Start Date: 06/30/19 Status: Ordered AUTO [...] 10/14/19 17:13:14 EST, Route to Pharmacy Electronically, [id number], [facility]/pharmacy #2071, 165.1, cm, 10/14/19 11:26:54 EST, Hei... [...] DAILY,INSTR:DO NOT CRUSH OR CHEW, [facility]/pharmacy #207 Start Date: 07/07/19 Status: Ordered Nebulizer/Compressor See Instructions, # 1 each, Refills 0, Tot. Refills 0, Maintenance, for PRN albuterol inhaled, 11/21/17 16:27:13, Compound Start Date: 11/21/17 Status: Ordered omeprazole 20 mg oral enteric coated capsule 1 capsule = 20 mg, By Mouth, Daily, # 30 capsule, 2 Refills, Maintenance, 01/07/20 15:11:00 EST, [facility], 165.1, cm, 01/07/20 14:51:00 EST, Height, 86, [...] Refills, Maintenance, 01/07/20 15:12:00 EST, [facility]/pharmacy #1, 165.1, cm, 01/07/20 14:51:00 EST, Height, 86, [...] 15:27:00 EDT, 12/04/19 15:27:00 EST, ER Tablet, [facility]/pharmacy #2071, 165.1, cm, 12/04/19 14:54:00 EST, Height, [...] apnea (AIRAM ), on CPAP(Confirmed) Active *BHN/BHCP/BENNETT-Nicolasa RichMxydvcl-[phone]/Health half-way, active care coordination(Confirmed) Active Sjogren's syndrome(Confirmed) Active Smoker, 5-10 cigarettes per day since age 16. Quit once for 2.5 years(Confirmed) Active Systemic lupus(Confirmed) Active Chronic urticaria(Confirmed) Active Vertigo(Confirmed) Active Social History Social History Type Response Tobacco Started at age: 13 Y ears. Sex Female
--- OUTSIDE RECORDS SUMMARY | 2024-09-07 13:58 | XMS_ITS | Continuity of Care Document ---
Author Organization [facility] Address [address], [address] [place] [address]- Care Team Providers Care Inside Sales Administrator Name Role Phone Broderick Kidd MD Primary Care Physician [place] [facility] [place]s): 08/16/23 - 09/15/23 [facility] [employer] [facility] [address], [address] [place], [place] [address] Attending Physician: Sosa Joy Admitting Physician: Sosa Joy Referring Physician: AdmtrSosa Allergies, Adverse Reactions, Alerts No Known Medication Allergies Immunizations Given and Recorded Vaccine Date Status Refusal Reason tetanus/diphtheria/pertussis, acel(Tdap) 04/25/23 Given tetanus/diphtheria/pertussis, acel(Tdap) 1 01/28/13 Given [id number] bivalent booster vax 01/03/23 Recorded influenza virus [...] VIS DATE 11/27/2011 2Result Comment: received at [facility] on [facility] in [place] 3Admin Note: flulaval vis given vis date 05/05/2012 4Result Comment: received 2nd dose at [facility] 5Result Comment: received at [facility] Medications acetaminophen 500 mg oral tablet 2 tablet, By Mouth, Every 8 hours, PRN NEEDED FOR PAIN, # 100 tablet, 3 Refills, Maintenance, 04/26/23 23:48:00 EDT, [facility] 136[facility], 165, cm, 04/25/23 8:59:00 EDT, Height, 100, kg, 04/04/23 16:15:00 EDT, Dry Weight Start Date: 04/26/23 Status: Ordered albuterol 0.083% inhalation solution 1 vials, Inhalation, Every 6 hours, PRN NEEDED FOR WHEEZING/SHORTNESS OF BREATH, # 300 mL, 2 Refills, Maintenance, 10/19/22 10:14:00 EST, [facility] 13411, 165.1, cm, 09/18/22 9:21:00 EST, Height Start Date: 10/19/22 Status: Ordered Airad-Uisprh-Azso 300 mg oral capsule 1 capsule, By Mouth, 2 times a day, # 60 capsule, 5 Refills, Maintenance, 05/12/23 20:20:00 EDT, [facility]/pharmacy #[id number], 165, cm, 05/08/23 10:12:00 EDT, Height, 100, kg, 04/04/23 16:15:00 EDT, Dry Weight Start Date: 05/12/23 Status: Ordered amitriptyline 10 mg oral tablet 1, tablet, By Mouth, Daily at bedtime, # 90 tablet, Refills 0, Maintenance, 08/13/23 13:34:00 EDT, Route to Pharmacy Electronically, [facility] 450[facility], 165, cm, 06/03/23 9:52:00 EDT, Height, 100, kg, 04/04/23 16:15:00 EDT, Dry Weight Start Date: 08/13/23 Status: Ordered ammonium lactate 5% topical lotion 1 application, Topically, 2 times a day, PRN Dry Skin, apply and rub in well, # 120 Gm, 0 Refills, Maintenance, 12/05/22 17:09:00 EST, Lotion, [facility]/pharmacy #[id number], Partial fill upon patient request ifthe [...] 11/23/22 9:13:00 EST, Route to Pharmacy Electronically, [facility]/pharmacy #[id number], Partial fill upon patient request if [...] Refills, Maintenance, 07/16/23 6:00:00 EDT, [facility], 25, APPLY TOPICALLY 4 TIMES A DAY, NEEDED NEUROPATHIC PAIN, 165, cm, 06/03/23 9:52:00 EDT, Height,... Start Date: 07/16/23 Status: Ordered famotidine 20 mg oral tablet 1, tablet, By Mouth, 2 times a day, # 180 tablet, Refills 1, Tot. Refills 1, Maintenance, 09/03/23 15:24:00 EDT, Route to Pharmacy Electronically, [facility]/pharmacy #[id number], 165, cm, 06/03/23 9:52:00 EDT, Height, [...] patch, 0 Refills, Maintenance, 02/05/23 23:52:00 EDT, [facility] 75634, 30, APPLY 1 PATCH TOPICALLY DAILY,X30 DAYS NEEDED FOR PAIN MILD, REMOVE AFTER 12 HOURS, 168,... Start Date: 02/05/23 Status: Ordered loratadine 10 mg oral tablet 1, tablet, By Mouth, 2 times a day, # 60 tablet, Refills 0, Maintenance, 12/31/22 14:48:00 EST, Route to Pharmacy Electronically, [facility], 165.1, cm, 12/05/22 15:21:00 EST, Height Start Date: 12/31/22 Stop Date: 01/30/23 Status: Ordered losartan 50 mg oral tablet 50 mg, 1, tablet, By Mouth, Daily, # 30 tablet, Refills 3, Tot. Refills 3, Maintenance, 05/08/23 10:35:00 EDT, Route to Pharmacy Electronically, [facility]/pharmacy #[id number], Partial fill upon patient request if the prescription is for a schedule II opioid drug... Start Date: 05/08/23 Status: Ordered meclizine 25 mg oral tablet 1 tablet, By Mouth, 2 times a day, PRN NEEDED FOR DIZZINESS, # 60 tablet, 0 Refills, Maintenance, 05/30/23 16:12:00 EDT, [facility], 165, cm, 05/22/23 9:22:00 EDT, Height, 100, kg, 04/04/23 16:15:00 EDT, Dry Weight Start Date: 05/30/23 Status: Ordered Myrbetriq 50 mg oral tablet, extended release 1 tablet, By Mouth, Daily, DO NOT CRUSH OR CHEW., # 30 tablet, 1 Refills, Maintenance, 08/13/23 8:42:00 EDT, [facility], 165, cm, 06/03/23 9:52:00 EDT, Height, 100, kg, 04/04/23 16:15:00 EDT, Dry Weight Start Date: 08/13/23 Status: Ordered naratriptan 2.5 mg oral tablet 1 tablet = 2.5 mg, By Mouth, Daily, PRN for migraine headache, may repeat dose once in 4 hours, # 18 tablet, 1 Refills, Acute 07/07/24 15:56:00 EDT, 07/07/23 15:56:00 EDT, Tablet, [facility]/pharmacy #[id number],Partial fill upon patient request if the prescripti... Start Date: 07/07/23 Stop Date: 07/07/24 Status: Ordered ondansetron 8 mg oral tablet 1 tablet = 8 mg, By Mouth, Daily, PRN Nausea, For bad nausea days., # 30 tablet, 0 Refills, Maintenance, 06/03/23 10:02:00 EDT, Tablet, [facility]/pharmacy #2071, Partial fill upon patient request if [...] each, 0 Refills, Maintenance, 08/15/23 9:02:00 EDT, [id number], Colonoscopy date 09/23/23 ; may substitute [...] 5 Refills, Maintenance, 11/22/22 14:08:00 EST, Capsule, [facility]/pharmacy #2071, Partial fill upon patient request if the prescription is for a schedule II opioid drug., 165.1, cm, 11/22/22 13:38:0... Start Date: 11/22/22 Status: Ordered riboflavin 400 mg oral capsule 1 capsule = 400 mg, By Mouth, Daily, # 100 capsule, 2 Refills, Maintenance, 05/12/23 20:23:00 EDT, Capsule, [facility]/pharmacy #[id number], 165, cm, 05/08/23 10:12:00 EDT, Height, [...] Required Details Aerosol, Route to Pharmacy Electronically, [id number]... Start Date: 09/29/21 Status: Ordered Ventolin 90 mcg Inhaler 2, puffs, Inhalation, 4 times a day, PRN, Refills 0, Maintenance, 11/26/18 9:56:44 EST Start Date: 11/26/18 Status: Ordered Vitamin B-12 500 mcg oral tablet 1 tablet = 500 mcg, By Mouth, Daily, # 90 tablet, 1 Refills, Maintenance, 09/11/23 9:07:00 EST, Tablet, [facility]/pharmacy #2071, Partial fill upon patient request if the prescription is for a schedule II opioid drug., 165, cm, 06/03/23 9:52:00 EDT, Height,... Start Date: 09/11/23 Stop Date: 03/09/24 Status: Ordered Vitamin B12 500 mcg oral tablet 1 tablet = 500 mcg, By Mouth, Daily, # 90 tablet, 1 Refills, Maintenance, 05/12/23 20:24:00 EDT, Tablet, [facility]/pharmacy #2071, Partial fill upon patient request if [...] S Resident Member Role: PCP Address: Address: [address] [place] [address]- Care Team Related Persons Name: MARIO GERARD Address: home [address] [place] [address] Name: CARI GARCÍA Address: home [address] [place] [id number] Name: NOELLE MAY
--- OUTSIDE RECORDS SUMMARY | 2024-09-07 13:58 | XMS_ITS | Continuity of Care Document ---
Author Organization [facility] Address [address] [place] [address]- Care Team Providers Care Process Checker Name Role Phone Ashley Faria MD Primary Care Physician [phone] Encounter [facility] Date(s): 09/05/22 - 10/05/22 [facility] [address] [place] [address]- Allergies, Adverse Reactions, Alerts No Known Medication [...] 5 01/28/13 Given 1Result Comment: received at [facility] on [facility] in [place] 2Admin Note: flulaval vis given vis date 05/05/2012 3Result Comment: received 2nd dose at [facility] 4Result Comment: received at [facility] 5Admin Note: VIS GIVEN VIS DATE 11/27/2011 Medications acetaminophen 500 mg oral tablet 2 tablet, By Mouth, Every 8 hours, PRN NEEDED FOR PAIN, # 100 tablet, 3 Refills, Maintenance, 07/12/22 19:10:00 EDT, [facility]/pharmacy #1, 165.1, cm, 07/12/22 17:15:00 EDT, Height Start Date: 07/12/22 Status: Ordered albuterol 0.083% inhalation solution 3 mL = 2.5 mg, Neb, Every 6 hours, PRN Wheezing/Shortness of Breath, # 360 mL, 2 Refills, Maintenance, 09/20/21 15:13:00 EST, [facility]/pharmacy #2070, 165.1, cm, 09/20/21 14:28:00 EST, Height Start Date: 09/20/21 Status: Ordered albuterol CFC free 90 mcg/inh inhalation aerosol 1, puffs, Inhalation, 4 times a day, PRN, # 8 Gm, Refills 11, Tot. Refills 11, Maintenance, 07/21/21 17:07:00 EDT, Aerosol, Route to Pharmacy Electronically, [id number], [facility]/pharmacy #2070, 165.1, cm, 03/22/21 14:17:00 EDT, H... Start Date: 07/21/21 Status: Ordered Oxdvt-Ktgcmq-Rgug 300 mg oral capsule 1 capsule, By Mouth, 2 times a day, OTC N/C., # 60 capsule, 5 Refills, Maintenance, 08/17/21 15:40:00 EDT, [facility]/pharmacy #2070, 165.1, cm, 08/14/21 14:44:00 EDT, Height Start Date: 08/17/21 Status: Ordered amitriptyline 10 mg oral tablet 10 mg, 1, tablet, By Mouth, Daily at bedtime, # 30 tablet, Refills 5, Tot. Refills 5, Maintenance, 07/31/22 16:08:00 EDT, Route to Pharmacy Electronically, [facility]/pharmacy #1, 165.1, cm, 07/12/22 17:15:00 EDT, Height Start [...] Refills, Maintenance, 08/14/21 15:27:00 EDT, Chew Tablet, [facility]/pharmacy #8006, Partial fill upon patient request if the [...] 07/12/22 19:10:00 EDT, Route to Pharmacy Electronically, [facility]/pharmacy #[id number], 165.1, cm, 07/12/22 17:15:00 EDT, Height Start Date: 07/12/22 Status: Ordered guaiFENesin 100 mg/5 mL oral liquid 20 mL = 400 mg, By Mouth, Every 6 hours, PRN for cough, # 240 mL, 0 Refills, Maintenance, 09/05/22 16:24:00 EDT, Liquid, [facility]/pharmacy #[id number], Partial fill upon patient request [...] tablet, 2 Refills, Maintenance, 07/12/22 19:13:00 EDT, [facility]/pharmacy #1, 165.1, cm, 07/12/22 17:15:00 EDT, Height Start [...] Refills, Maintenance, 01/14/23 17:00:00 EDT, REC Powder, [facility]/pharmacy #[id number], test date 01/15/23, 240 mL By Mouth Every 10 minutes,Instr:M... Start Date: 01/14/23 Status: Ordered Paxlovid 150 mg-100 mg oral tablet See Instructions, Take 300 mg nirmatrelvir (two 150 mg tablets) and 100 mg ritonavir (one 100 mg tablet), taking all three tablets together, orally twice daily for 5 days, # 30 each, 0 Refills, Maintenance, 09/05/22 16:24:00 EDT, [facility]/pharmacy #2071, 3... Start Date: 09/05/22 Status: Ordered Plaquenil 200 mg oral tablet 400 mg, 2, tablet, By Mouth, Daily, Refills 0, Maintenance, 11/28/16 10:20:10 EST Start Date: 11/28/16 Status: Ordered pregabalin 150 mg oral capsule 1 capsule = 150 mg, By Mouth, 2 times a day, # 180 capsule, 1 Refills, Maintenance, 02/02/22 14:07:00 EDT, Capsule, [facility]/pharmacy #[id number], Partial fill upon patient request if the prescription is for a schedule II opioid drug., 165.1, cm, 02/02/22 13:29:... Start Date: 02/02/22 Status: Ordered riboflavin 400 mg oral capsule 1 capsule = 400 mg, By Mouth, Daily, # 100 capsule, 2 Refills, Maintenance, 09/12/20 18:13:00 EST, Capsule, [facility]/pharmacy #2071, 165.1, cm, 05/10/20 10:01:00 EDT, [...] tablet, 1 Refills, Maintenance, 08/17/21 15:39:00 EDT, [facility]/pharmacy #2071, 165.1, cm, 08/14/21 14:44:00 EDT, Height Start Date: 08/17/21 Status: Ordered Symbicort 80mcg/4.5mcg Inhaler See Instructions, PRN, 1 puff 2 x per day BRand name covered by hne, # 1 each, Refills 6, Tot. Refills 6, Maintenance, 09/29/21 9:04:00 EST, Instructions Replace Required Details Aerosol, Route to Pharmacy Electronically, [id number]... Start Date: 09/29/21 Status: Ordered Ventolin 90 [...] Refills, Maintenance, 09/20/21 15:14:00 EST, Chew Tablet, [facility]/pharmacy #[id number], Partial fill upon patient request if the [...] ears. Sex Female Patient Care team information Care Team Personnel Name: Ashley Faria MD Position: [facility] Resident Member Role: PCP Address: Address: [address] [place] [address] [place] [address]- Care Team Related Persons Name: MARIO GERARD Address: home [address] [place] [address] Name: CARI GARCÍA Address: home [address] [address] Name: NOELLE MAY
--- OUTSIDE RECORDS SUMMARY | 2024-09-07 13:58 | XMS_ITS | Continuity of Care Document ---
Author Organization [facility] Address [address] [place] [address]- Care Team Providers Care Bike Mechanic Name Role Phone Ashley Faria MD Primary Care Physician [phone] [place] [facility] [place] 04/28/20 - 05/28/20 [place] [address]- [facility] Attending Physician: Admtr, [id number] Admitting Physician: Admtr, Ar8 Referring Physician: Admtr, Ar8 Allergies, Adverse Reactions, [...] Inhalation, 2 times a day, Prescribed by Accountant Supervisor., # 1 each, Refills 11, Tot. Refills 11, Maintenance, 03/13/18 11:00:50 EDT, Inhaler, Route to Pharmacy Electronically, [id number], [facility]/pharmacy #[id number] Start Date: 03/13/18 Status: Ordered albuterol 0.083% inhalation solution 3 mL = 2.5 mg, Neb, Every 6 hours, PRN Wheezing/Shortness of Breath, # 360 mL, 2 Refills, Maintenance, 12/04/19 15:27:00 EST, [facility]/pharmacy #2070, 165.1, cm, 12/04/19 14:54:00 EST, Height, 86.4, kg, 08/10/19 14:42:00 EDT, Dry Weight Start Date: 12/04/19 Status: Ordered Lety Allergy 60 mg oral tablet 3 tablet = 180 mg, By Mouth, Daily, Prescribed by Customs Patrol Officer in [place]., # 90 tablet, 0 Refills, Maintenance, 02/16/16 14:46:50, Tablet Start Date: 02/16/16 Stop Date: 03/17/16 Status: Ordered amitriptyline 10 mg oral tablet 10 mg, 1, tablet, By Mouth, Daily at bedtime, # 30 tablet, Refills 5, Tot. Refills 5, Maintenance, 06/30/19 15:15:49 EDT, Route to Pharmacy Electronically, [id number], [facility]/pharmacy #[id number] Start Date: 06/30/19 Status: Ordered AUTO [...] 02/02/20 11:42:00 EDT, Route to Pharmacy Electronically, [facility]/pharmacy #[id number], 165.1, cm, 01/07/20 14:51:00 EST, Height, [...] BY MOUTH DAILY,INSTR:DO NOT CRUSH OR CHEW, [facility]/pharmacy #207 Start Date: 07/07/19 Status: Ordered Nebulizer/Compressor See Instructions, # 1 each, Refills 0, Tot. Refills 0, Maintenance, for PRN albuterol inhaled, 11/21/17 16:27:13, Compound Start Date: 11/21/17 Status: Ordered omeprazole 20 mg oral enteric coated capsule 1 capsule = 20 mg, By Mouth, Daily, # 30 capsule, 2 Refills, Maintenance, 04/14/20 7:47:00 EDT, [facility]/pharmacy #2070, 165.1, cm, 01/07/20 14:51:00 EST, Height, [...] tablet, 2 Refills, Maintenance, 01/07/20 15:12:00 EST, [facility]/pharmacy #[id number], 165.1, cm, 01/07/20 14:51:00 EST, Height, [...] apnea (AIRAM ), on CPAP(Confirmed) Active *BHN/BHCP/Leodan Rich-[phone]/Health intermediate, active care coordination(Confirmed) Active Sjogren's syndrome(Confirmed) Active Smoker, 5-10 cigarettes per day since age 16. Quit once for 2.5 years(Confirmed) Active Systemic lupus(Confirmed) Active Chronic urticaria(Confirmed) Active Vertigo(Confirmed) Active Social History Social History Type Response Tobacco Started at age: 13 Y ears. Sex Female
--- OUTSIDE RECORDS SUMMARY | 2024-09-07 13:58 | XMS_ITS | Continuity of Care Document ---
Author Organization [facility] Address [address] [place] [address]- Care Team Providers Care Metal Moulder Name Role Phone Broderick Kidd MD Primary Care Physician Encounter [facility] Date(s): 08/26/23 - 09/25/23 [facility] [address] [facility] [address] [place] [address] Attending Physician: Sosa Joy Admitting Physician: AdmtrSosa Referring Physician: Admtr, ArErum Allergies, Adverse Reactions, Alerts No Known Medication Allergies Immunizations Given and Recorded Vaccine Date Status Refusal Reason tetanus/diphtheria/pertussis, acel(Tdap) 04/25/23 Given tetanus/diphtheria/pertussis, acel(Tdap) 1 01/28/13 Given [id number] bivalent booster vax 01/03/23 Recorded influenza virus [...] VIS DATE 11/27/2011 2Result Comment: received at [facility] on [facility] in [place] 3Admin Note: flulaval vis given vis date 05/05/2012 4Result Comment: received 2nd dose at [facility] 5Result Comment: received at [facility] Medications acetaminophen 500 mg oral tablet 2 tablet, By Mouth, Every 8 hours, PRN NEEDED FOR PAIN, # 100 tablet, 3 Refills, Maintenance, 04/26/23 23:48:00 EDT, [facility] STORE 43966, 165, cm, 04/25/23 8:59:00 EDT, Height, 100, kg, 04/04/23 16:15:00 EDT, Dry Weight Start Date: 04/26/23 Status: Ordered albuterol 0.083% inhalation solution 1 vials, Inhalation, Every 6 hours, PRN NEEDED FOR WHEEZING/SHORTNESS OF BREATH, # 300 mL, 2 Refills, Maintenance, 10/19/22 10:14:00 EST, [facility] ST[facility] 36060, 165.1, cm, 09/18/22 9:21:00 EST, Height Start Date: 10/19/22 Status: Ordered Ywpzd-Elkbls-Nksh 300 mg oral capsule 1 capsule, By Mouth, 2 times a day, # 60 capsule, 5 Refills, Maintenance, 05/12/23 20:20:00 EDT, [facility]/pharmacy #[id number], 165, cm, 05/08/23 10:12:00 EDT, Height, 100, kg, 04/04/23 16:15:00 EDT, Dry Weight Start Date: 05/12/23 Status: Ordered amitriptyline 10 mg oral tablet 1, tablet, By Mouth, Daily at bedtime, # 90 tablet, Refills 0, Maintenance, 08/13/23 13:34:00 EDT, Route to Pharmacy Electronically, [facility], 165, cm, 06/03/23 9:52:00 EDT, Height, 100, kg, 04/04/23 16:15:00 EDT, Dry Weight Start Date: 08/13/23 Status: Ordered ammonium lactate 5% topical lotion 1 application, Topically, 2 times a day, PRN Dry Skin, apply and rub in well, # 120 Gm, 0 Refills, Maintenance, 12/05/22 17:09:00 EST, Lotion, [facility]/pharmacy #[id number], Partial fill [...] 11/23/22 9:13:00 EST, [facility] Pharmacy Electronically, [facility] [...] Gm, 2 Refills, Maintenance, 07/16/23 6:00:00 EDT, [facility] STORE 30824, 25, APPLY TOPICALLY 4 TIMES A DAY, NEEDED NEUROPATHIC PAIN, 165, cm, 06/03/23 9:52:00 EDT, Height,... Start Date: 07/16/23 Status: Ordered famotidine 20 mg oral tablet 1, tablet, By Mouth, 2 times a day, # 180 tablet, Refills 1, Tot. Refills 1, Maintenance, 09/03/23 15:24:00 EDT, Route to Pharmacy Electronically, [facility]/pharmacy #[id number], 165, cm, 06/03/23 [...] patch, 0 Refills, Maintenance, 02/05/23 23:52:00 EDT, [facility] STORE 04153, 30, APPLY 1 PATCH TOPICALLY DAILY,X30 DAYS NEEDED FOR PAIN MILD, REMOVE AFTER 12 HOURS, 168,... Start Date: 02/05/23 Status: Ordered loratadine 10 mg oral tablet 1, tablet, By Mouth, 2 times a day, # 60 tablet, Refills 0, Maintenance, 12/31/22 14:48:00 EST, Route to Pharmacy Electronically, [facility] STORE 59932, 165.1, cm, 12/05/22 15:21:00 EST, Height Start Date: 12/31/22 Stop Date: 01/30/23 Status: Ordered losartan 50 mg oral tablet 50 mg, 1, tablet, By Mouth, Daily, # 30 tablet, Refills 3, Tot. Refills 3, Maintenance, 05/08/23 10:35:00 EDT, Route to Pharmacy Electronically, [facility]/pharmacy #[id number], Partial fill upon patient request if the prescription is for a schedule II opioid drug... Start Date: 05/08/23 Status: Ordered meclizine 25 mg oral tablet 1 tablet, By Mouth, 2 times a day, PRN NEEDED FOR DIZZINESS, # 60 tablet, 0 Refills, Maintenance, 05/30/23 16:12:00 EDT, [facility] ST[facility] 78104, 165, cm, 05/22/23 9:22:00 EDT, Height, 100, kg, 04/04/23 16:15:00 EDT, Dry Weight Start Date: 05/30/23 Status: Ordered Myrbetriq 50 mg oral tablet, extended release 1 tablet, By Mouth, Daily, DO NOT CRUSH OR CHEW., # 90 tablet, 1 Refills, Maintenance, 09/19/23 16:25:00 EST, [facility]/pharmacy #[id number], 165, cm, 09/12/23 13:12:00 EST, Height, 100, kg, 04/04/23 16:15:00 EDT, Dry Weight Start Date: 09/19/23 Status: Ordered naratriptan 2.5 mg oral tablet 1 tablet = 2.5 mg, By Mouth, Daily, PRN for migraine headache, may repeat dose once in 4 hours, # 18 tablet, 1 Refills, Acute 07/07/24 15:56:00 EDT, 07/07/23 15:56:00 EDT, Tablet, [facility]/pharmacy #[id number],Partial fill upon patient request if the prescripti... Start Date: 07/07/23 Stop Date: 07/07/24 Status: Ordered ondansetron 8 mg oral tablet 1 tablet, By Mouth, Daily, PRN NEEDED FOR NAUSEA AND VOMITING, # 30 tablet, 0 Refills, Maintenance, 09/23/23 10:53:00 EST, [facility], 165, cm, 09/12/23 13:12:00 EST, Height, 100, [...] 5 Refills, Maintenance, 11/22/22 14:08:00 EST, Capsule, [facility]/pharmacy #[id number], Partial fill upon patient request if the prescription is for a schedule II opioid drug., 165.1, cm, 11/22/22 13:38:0... Start Date: 11/22/22 Status: Ordered riboflavin 400 mg oral capsule 1 capsule = 400 mg, By Mouth, Daily, # 100 capsule, 2 Refills, Maintenance, 05/12/23 20:23:00 EDT, Capsule, [facility]/pharmacy #2071, 165, cm, 05/08/23 [...] x per day BRand name covered by [facility], # 1 each, Refills 6, Tot. Refills 6, Maintenance, 09/29/21 9:04:00 EST, Instructions Replace Required Details Aerosol, Route to Pharmacy Electronically, [id number]... Start Date: 09/29/21 Status: Ordered Ventolin 90 mcg Inhaler 2, puffs, Inhalation, 4 times a day, PRN, Refills 0, Maintenance, 11/26/18 9:56:44 EST Start Date: 11/26/18 Status: Ordered Vitamin B-12 500 mcg oral tablet 1 tablet = 500 mcg, By Mouth, Daily, # 90 tablet, 1 Refills, Maintenance, 09/11/23 9:07:00 EST, Tablet, [facility]/pharmacy #2071, Partial fill upon patient request if the prescription is for a schedule II opioid drug., 165, cm, 06/03/23 9:52:00 EDT, Height,... Start Date: 09/11/23 Stop Date: 03/09/24 Status: Ordered Vitamin B12 500 mcg oral tablet 1 tablet = 500 mcg, By Mouth, Daily, # 90 tablet, 1 Refills, Maintenance, 05/12/23 20:24:00 EDT, Tablet, [facility]/pharmacy #2071, Partial [...] Personnel Name: Broderick Kidd MD Position: [facility] Resident Member Role: PCP Address: Address: [address] [place] [address] [place] [address]- Care Team Related Persons Name: MARIO GERARD Address: home [address] [place] [address] Name: CARI GARCÍA Address: home [address] [place] [id number] Name: NOELLE MAY
--- OUTSIDE RECORDS SUMMARY | 2024-09-07 13:58 | XMS_ITS | Continuity of Care Document ---
Author Organization [facility] Freya Reynolds Surger y Address [address] [facility], [facility] [address] [place] [address]- Care Team Providers Care Software Test Technician Name Role Phone Broderick Kidd MD Primary Care Physician Encounter [facility] Date(s): 09/03/23 - 10/03/23 [facility] Freya Reynolds Surgery [address] [facility] [address], [address] [place] [address]- Attending Physician: Admtr, Sosa Admitting Physician: Admtr, [id number] Referring Physician: Admtr, [...] 04/25/23 Given tetanus/diphtheria/pertussis, acel(Tdap) 3 01/28/13 Given [id number] bivalent booster vax 01/03/23 Recorded SARS-CoV-2 (COVID-19) [...] 07/05/08 Recor ded 1Result Comment: received at [facility] on [facility] in [place] 2Admin Note: flulaval vis given vis date 05/05/2012 3Admin Note: VIS GIVEN VIS DATE 11/27/2011 4Result Comment: received 2nd dose at [facility] 5Result Comment: received at [facility] Medications acetaminophen 500 mg oral tablet 2 tablet, By Mouth, Every 8 hours, PRN NEEDED FOR PAIN, # 100 tablet, 3 Refills, Maintenance, 04/26/23 23:48:00 EDT, [facility] ST[id number], 165, cm, 04/25/23 8:59:00 EDT, Height, 100, kg, 04/04/23 16:15:00 EDT, Dry Weight Start Date: 04/26/23 Status: Ordered albuterol 0.083% inhalation solution 1 vials, Inhalation, Every 6 hours, PRN NEEDED FOR WHEEZING/SHORTNESS OF BREATH, # 300 mL, 2 Refills, Maintenance, 10/19/22 10:14:00 EST, [facility] ST[facility]2387, 165.1, cm, 09/18/22 9:21:00 EST, Height Start Date: 10/19/22 Status: Ordered Qrzgq-Ffqlgb-Qdrn 300 mg oral capsule 1 capsule, By [...] 08/13/23 13:34:00 EDT, Route to Pharmacy Electronically, [facility] ST[facility] [id number], 165, cm, 06/03/23 9:52:00 EDT, Height, 100, [...] Gm, 2 Refills, Maintenance, 07/16/23 6:00:00 EDT, [facility] ST[facility]73, 25, APPLY TOPICALLY 4 TIMES A DAY, [...] 09/27/23 11:20:00 EST, Route to Pharmacy Electronically, [facility] [...] Refills, Maintenance, 02/05/23 23:52:00 EDT, [facility], 30, APPLY 1 PATCH TOPICALLY DAILY,X30 DAYS NEEDED FOR PAIN MILD, REMOVE AFTER 12 HOURS, 168,... Start Date: 02/05/23 Status: Ordered loratadine 10 mg oral tablet 1, tablet, By Mouth, 2 times a day, # 60 tablet, Refills 0, Maintenance, 12/31/22 14:48:00 EST, Route to Pharmacy Electronically, [facility], 165.1, cm, 12/05/22 15:21:00 EST, Height Start Date: 12/31/22 Stop Date: 01/30/23 Status: Ordered losartan 50 mg oral tablet 50 mg, 1, tablet, By Mouth, Daily, # 90 tablet, Refills 1, Tot. Refills 1, Maintenance, 10/02/23 13:31:00 EST, Route to Pharmacy Electronically, [facility]/pharmacy #[id number], Partial fill upon patient request if the prescription is for a schedule II opioid drug... Start Date: 10/02/23 Status: Ordered meclizine 25 mg oral tablet 1 tablet, By Mouth, 2 times a day, PRN NEEDED FOR DIZZINESS, # 60 tablet, 0 Refills, Maintenance, 05/30/23 16:12:00 EDT, [id number], 165, cm, 05/22/23 9:22:00 EDT, Height, 100, kg, 04/04/23 16:15:00 EDT, Dry Weight Start Date: 05/30/23 Status: Ordered Myrbetriq 50 mg oral tablet, extended release 1 tablet, By Mouth, Daily, DO NOT CRUSH OR CHEW., # 90 tablet, 1 Refills, Maintenance, 09/19/23 16:25:00 EST, [facility]/pharmacy #2071, 165, cm, 09/12/23 13:12:00 EST, Height, [...] Refills, Maintenance, 09/23/23 10:53:00 EST, [facility], 165, cm, 09/12/23 13:12:00 EST, Height, 100, [...] Required Details Aerosol, Route to Pharmacy Electronically, [id number]... Start Date: 09/29/21 Status: Ordered Ventolin 90 [...] Team Personnel Name: Broderick Kidd MD Position: [facility] Resident Member Role: PCP Address: Address: [address] [place] [address] [place] [address]- Care Team Related Persons Name: MARIO GERARD Address: home [address] [place] [address] Name: CARI GARCÍA Address: home [address] [place] [id number] Name: NOELLE MAY
--- OUTSIDE RECORDS SUMMARY | 2024-09-07 13:58 | XMS_ITS | Continuity of Care Document ---
Author Organization [facility] Adult [facility] Address [address] [place] [address]- Care Team Providers Care Sample Maker Name Role Phone Ashley Faria MD Primary Care Physician [phone] Encounter [facility] Date(s): 09/18/22 - 10/18/22 [facility] [address] [place] [address]- Attending Physician: Sosa Joy Admitting Physician: AdmtrSosa [...] at [facility] on [facility] in [place] 2Admin Note: flulaval vis given vis date 05/05/2012 3Result Comment: received 2nd dose at [facility] 4Result Comment: received at [facility] 5Admin Note: VIS GIVEN VIS DATE 11/27/2011 Medications acetaminophen 500 mg oral tablet 2 tablet, By Mouth, Every 8 hours, PRN NEEDED FOR PAIN, # 100 tablet, 3 Refills, Maintenance, 07/12/22 19:10:00 EDT, [facility]/pharmacy #1, 165.1, cm, 07/12/22 17:15:00 EDT, Height Start Date: 07/12/22 Status: Ordered albuterol 0.083% inhalation solution 3 mL = 2.5 mg, Neb, Every 6 hours, PRN Wheezing/Shortness of Breath, # 360 mL, 2 Refills, Maintenance, 09/20/21 15:13:00 EST, [facility]/pharmacy #2070, 165.1, cm, 09/20/21 14:28:00 EST, Height Start Date: 09/20/21 Status: Ordered albuterol CFC free 90 mcg/inh inhalation aerosol 1, puffs, Inhalation, 4 times a day, PRN, # 8 Gm, Refills 11, Tot. Refills 11, Maintenance, 07/21/21 17:07:00 EDT, Aerosol, Route to Pharmacy Electronically, [id number], [facility]/pharmacy #2070, 165.1, cm, 03/22/21 14:17:00 EDT, H... Start Date: 07/21/21 Status: Ordered Lmpka-Qofwgo-Ozut 300 mg oral capsule 1 capsule, By Mouth, 2 times a day, OTC N/C., # 60 capsule, 5 Refills, Maintenance, 08/17/21 15:40:00 EDT, [facility]/pharmacy #2070, 165.1, cm, 08/14/21 14:44:00 EDT, Height Start Date: 08/17/21 Status: Ordered amitriptyline 10 mg oral tablet 10 mg, 1, tablet, By Mouth, Daily at bedtime, # 30 tablet, Refills 5, Tot. Refills 5, Maintenance, 07/31/22 16:08:00 EDT, Route to Pharmacy Electronically, [facility]/pharmacy #2070, 165.1, cm, 07/12/22 17:15:00 EDT, Height [...] 07/12/22 19:10:00 EDT, Route to Pharmacy Electronically, [facility]/pharmacy #2071, 165.1, cm, 07/12/22 17:15:00 EDT, Height Start Date: 07/12/22 Status: Ordered guaiFENesin 100 mg/5 mL oral liquid 20 mL = 400 mg, By Mouth, Every 6 hours, PRN for cough, # 240 mL, 0 Refills, Maintenance, 09/05/22 16:24:00 EDT, Liquid, [facility]/pharmacy #[id number], Partial [...] tablet, 2 Refills, Maintenance, 07/12/22 19:13:00 EDT, [facility]/pharmacy #1, 165.1, cm, 07/12/22 17:15:00 EDT, Height [...] tablet, 11 Refills, Maintenance, 07/31/22 16:07:00 EDT, [facility]/pharmacy #2071, 165.1, cm, 07/12/22 17:15:00 [...] Refills, Maintenance, 01/14/23 17:00:00 EDT, REC Powder, [facility]/pharmacy #[id number], test date 01/15/23, 240 mL By Mouth Every 10 minutes,Instr:M... Start Date: 01/14/23 Status: Ordered Paxlovid 150 mg-100 mg oral tablet See Instructions, Take 300 mg nirmatrelvir (two 150 mg tablets) and 100 mg ritonavir (one 100 mg tablet), taking all three tablets together, orally twice daily for 5 days, # 30 each, 0 Refills, Maintenance, 09/05/22 16:24:00 EDT, [facility]/pharmacy #2071, 3... Start Date: 09/05/22 Status: Ordered Plaquenil 200 mg oral tablet 400 mg, 2, tablet, By Mouth, Daily, Refills 0, Maintenance, 11/28/16 10:20:10 EST Start Date: 11/28/16 Status: Ordered pregabalin 150 mg oral capsule 1 capsule = 150 mg, By Mouth, 2 times a day, # 180 capsule, 1 Refills, Maintenance, 02/02/22 14:07:00 EDT, Capsule, [facility]/pharmacy #2071, Partial fill upon patient request if the prescription is for a schedule II opioid drug., 165.1, cm, 02/02/22 13:29:... Start Date: 02/02/22 Status: Ordered riboflavin 400 mg oral capsule 1 capsule = 400 mg, By Mouth, Daily, # 100 capsule, 2 Refills, Maintenance, 09/12/20 18:13:00 EST, Capsule, [facility]/pharmacy #207, 165.1, cm, 05/10/20 10:01:00 EDT, Height, [...] tablet, 1 Refills, Maintenance, 08/17/21 15:39:00 EDT, [facility]/pharmacy #2070, 165.1, cm, 08/14/21 14:44:00 EDT, Height Start Date: 08/17/21 Status: Ordered Symbicort 80mcg/4.5mcg Inhaler See Instructions, PRN, 1 puff 2 x per day BRand name covered by hne, # 1 each, Refills 6, Tot. Refills 6, Maintenance, 09/29/21 9:04:00 EST, Instructions Replace Required Details Aerosol, Route to Pharmacy Electronically, [id number]... Start Date: 09/29/21 Status: Ordered Ventolin 90 [...] ears. Sex Female Note * Event Display: MM Mammogram Authored Date: * Event Display: Laboratory Result Scanned Authored Date: * Event Display: Non BH Lab Results Authored Date: * Event Display: MM Mammogram, Non- BH Authored Date: * Event Display: MM Mammogram, Non- BH Authored Date: * Event Display: Non BH Lab Results Authored Date: * Event Display: MM Mammogram, Non- BH Authored Date: * Event Display: MM Mammogram Authored Date: * Event Display: Non BH Radiology Results Authored Date: * Event Display: Non BH Radiology Results Authored Date: Patient Care team information Care Team Personnel Name: Ashley Faria MD Position: [facility] Resident Member Role: PCP Address: Address: [address] [place] [address] Care Team Related Persons Name: MARIO GERARD Address: home [address] [place] [address] Name: CARI GARCÍA Address: home [address] [address] Name: NOELLE MAY
--- OUTSIDE RECORDS SUMMARY | 2024-09-07 13:58 | XMS_ITS | Continuity of Care Document ---
Author Organization [facility] Adult [facility] Address [address] [place] [address]- Care Team Providers Care Community Development Coordinator Name Role Phone Otilia MEHTA, Kaaaliyah Primary Care Physic astrid Encounter [facility] Date(s): 12/04/19 - 12/14/19 [facility] [address] [place] [address] Attending Physician: Sosa Joy Admitting Physician: [...] Inhalation, 2 times a day, Prescribed by Justice Court Judge., # 1 each, Refills 11, Tot. Refills 11, Maintenance, 03/13/18 11:00:50 EDT, Inhaler, Route to Pharmacy Electronically, [id number], [facility]/pharmacy #[id number] Start Date: 03/13/18 Status: Ordered albuterol 0.083% inhalation solution 3 mL = 2.5 mg, Neb, Every 6 hours, PRN Wheezing/Shortness of Breath, # 360 mL, 2 Refills, Maintenance, 12/04/19 15:27:00 EST, [facility]/pharmacy #2071, 165.1, cm, 12/04/19 14:54:00 EST, Height, 86.4, kg, 08/10/19 14:42:00 EDT, Dry Weight Start Date: 12/04/19 Status: Ordered Lety Allergy 60 mg oral tablet 3 tablet = 180 mg, By Mouth, Daily, Prescribed by [facility] in [place]., # 90 tablet, 0 Refills, Maintenance, 02/16/16 14:46:50, Tablet Start Date: 02/16/16 Stop Date: 03/17/16 Status: Ordered amitriptyline 10 mg oral tablet 10 mg, 1, tablet, By Mouth, Daily at bedtime, # 30 tablet, Refills 5, Tot. Refills 5, Maintenance, 06/30/19 15:15:49 EDT, Route to Pharmacy Electronically, [id number], [facility]/pharmacy #[id number] Start Date: 06/30/19 Status: Ordered AUTO [...] 10/14/19 17:13:14 EST, Route to Pharmacy Electronically, [id number], [facility]/pharmacy #2071, 165.1, cm, 10/14/19 11:26:54 EST, Hei... [...] MOUTH DAILY,INSTR:DO NOT CRUSH OR CHEW, [facility]/pharmacy #[id number] Start Date: 07/07/19 Status: Ordered Nebulizer/Compressor See Instructions, # 1 each, Refills 0, Tot. Refills 0, Maintenance, for PRN albuterol inhaled, 11/21/17 16:27:13, Compound Start Date: 11/21/17 Status: Ordered nicotine 21 mg/24 hr transdermal film, extended release 1 patch, Topically, Daily, for 14 days, # 14 patch, 0 Refills, Acute 12/18/19 16:06:00 EST, 12/04/19 16:06:00 EST, Patch, [facility]/pharmacy #[id number], 1 patch Topically Daily,x14 days, 165.1, [...] 01/02/20 15:28:00 EST, 12/04/19 15:28:00 EST, Liquid, [facility]/pharmacy #[id number], 10 mL By Mouth Every 4 [...] 15:27:00 EDT, 12/04/19 15:27:00 EST, ER Tablet, [facility]/pharmacy #[id number], 165.1, cm, 12/04/19 14:54:00 EST, Height, [...] apnea (AIRAM ), on CPAP(Confirmed) Active *BHN/BHCP/CP-Nicolasaavril RichLaubyme-[phone]/Health long term, active care coordination(Confirmed) Active Sjogren's syndrome(Confirmed) Active Smoker, 5-10 cigarettes per day since age 16. Quit once for 2.5 years(Confirmed) Active Systemic lupus(Confirmed) Active Chronic urticaria(Confirmed) Active Vertigo(Confirmed) Active Social History Social History Type Response Tobacco Started at age: 13 Y ears. Sex Female
--- OUTSIDE RECORDS SUMMARY | 2024-09-07 13:58 | XMS_ITS | Continuity of Care Document ---
Author Organization [facility] Address [address] [place] [id number]- Care Team Providers Care Entrance Guard Name Role Phone Broderick Kidd MD Primary Care Physician Encounter [facility] [place] Date(s): 09/12/23 - 09/19/23 [facility] [address] [place] [id number]- Attending Physician: Jean Claude Landers MD Admitting Physician: Jean Claude Landers MD Allergies, Adverse Reactions, Alerts No Known Medication Allergies Immunizations Given and Recorded Vaccine Date Status Refusal Reason tetanus/diphtheria/pertussis, acel(Tdap) 04/25/23 Given tetanus/diphtheria/pertussis, acel(Tdap) 1 01/28/13 Given [id number] bivalent booster vax 01/03/23 Recorded influenza virus [...] VIS DATE 11/27/2011 2Result Comment: received at [facility] on [facility] [place] 3Admin Note: flulaval vis given vis date 05/05/2012 4Result Comment: received 2nd dose at [facility] 5Result Comment: received at [facility] Medications acetaminophen 500 mg oral tablet 2 tablet, By Mouth, Every 8 hours, PRN NEEDED FOR PAIN, # 100 tablet, 3 Refills, Maintenance, 04/26/23 23:48:00 EDT, [facility] STORE [id number], 165, cm, 04/25/23 8:59:00 EDT, Height, 100, kg, 04/04/23 16:15:00 EDT, Dry Weight Start Date: 04/26/23 Status: Ordered albuterol 0.083% inhalation solution 1 vials, Inhalation, Every 6 hours, PRN NEEDED FOR WHEEZING/SHORTNESS OF BREATH, # 300 mL, 2 Refills, Maintenance, 10/19/22 10:14:00 EST, [facility] STORE [id number], 165.1, cm, 09/18/22 9:21:00 EST, Height Start Date: 10/19/22 Status: Ordered Yexrf-Seschv-Jrtg 300 mg oral capsule 1 capsule, By Mouth, 2 times a day, # 60 capsule, 5 Refills, Maintenance, 05/12/23 20:20:00 EDT, [facility]/pharmacy #[id number], 165, cm, 05/08/23 10:12:00 EDT, Height, 100, kg, 04/04/23 16:15:00 EDT, Dry Weight Start Date: 05/12/23 Status: Ordered amitriptyline 10 mg oral tablet 1, tablet, By Mouth, Daily at bedtime, # 90 tablet, Refills 0, Maintenance, 08/13/23 13:34:00 EDT, Route to Pharmacy Electronically, [id number], 165, cm, 06/03/23 9:52:00 EDT, Height, 100, kg, 04/04/23 16:15:00 EDT, Dry Weight Start Date: 08/13/23 Status: Ordered ammonium lactate 5% topical lotion 1 application, Topically, 2 times a day, PRN Dry Skin, apply and rub in well, # 120 Gm, 0 Refills, Maintenance, 12/05/22 17:09:00 EST, Lotion, [facility]/pharmacy #[id number], Partial fill upon patient request [...] 11/23/22 9:13:00 EST, Route to Pharmacy Electronically, [facility]/pharmacy #[id number], Partial fill upon patient request [...] Gm, 2 Refills, Maintenance, 07/16/23 6:00:00 EDT, [facility] STORE [id number], 25, APPLY TOPICALLY 4 TIMES A DAY, NEEDED NEUROPATHIC PAIN, 165, cm, 06/03/23 9:52:00 EDT, Height,... Start Date: 07/16/23 Status: Ordered famotidine 20 mg oral tablet 1, tablet, By Mouth, 2 times a day, # 180 tablet, Refills 1, Tot. Refills 1, Maintenance, 09/03/23 15:24:00 EDT, Route to Pharmacy Electronically, [facility]/pharmacy #[id number], 165, cm, 06/03/23 9:52:00 EDT, [...] patch, 0 Refills, Maintenance, 02/05/23 23:52:00 EDT, [facility] STORE [id number], 30, APPLY 1 PATCH TOPICALLY DAILY,X30 DAYS NEEDED FOR PAIN MILD, REMOVE AFTER 12 HOURS, 168,... Start Date: 02/05/23 Status: Ordered loratadine 10 mg oral tablet 1, tablet, By Mouth, 2 times a day, # 60 tablet, Refills 0, Maintenance, 12/31/22 14:48:00 EST, Route to Pharmacy Electronically, [facility] STORE [id number], 165.1, cm, 12/05/22 15:21:00 EST, Height Start Date: 12/31/22 Stop Date: 01/30/23 Status: Ordered losartan 50 mg oral tablet 50 mg, 1, tablet, By Mouth, Daily, # 30 tablet, Refills 3, Tot. Refills 3, Maintenance, 05/08/23 10:35:00 EDT, Route to Pharmacy Electronically, [facility]/pharmacy #[id number], Partial fill upon patient request if the prescription is for a schedule II opioid drug... Start Date: 05/08/23 Status: Ordered meclizine 25 mg oral tablet 1 tablet, By Mouth, 2 times a day, PRN NEEDED FOR DIZZINESS, # 60 tablet, 0 Refills, Maintenance, 05/30/23 16:12:00 EDT, [facility] STORE [id number], 165, cm, 05/22/23 9:22:00 EDT, Height, 100, kg, 04/04/23 16:15:00 EDT, Dry Weight Start Date: 05/30/23 Status: Ordered Myrbetriq 50 mg oral tablet, extended release 1 tablet, By Mouth, Daily, DO NOT CRUSH OR CHEW., # 90 tablet, 1 Refills, Maintenance, 09/19/23 16:25:00 EST, [facility]/pharmacy #[id number], 165, cm, 09/12/23 13:12:00 EST, Height, 100, kg, 04/04/23 16:15:00 EDT, Dry Weight Start Date: 09/19/23 Status: Ordered naratriptan 2.5 mg oral tablet 1 tablet = 2.5 mg, By Mouth, Daily, PRN for migraine headache, may repeat dose once in 4 hours, # 18 tablet, 1 Refills, Acute 07/07/24 15:56:00 EDT, 07/07/23 15:56:00 EDT, Tablet, [facility]/pharmacy #[id number],Partial fill upon patient request if [...] 5 Refills, Maintenance, 11/22/22 14:08:00 EST, Capsule, [facility]/pharmacy #[id number], Partial fill upon patient request [...] Required Details Aerosol, Route to Pharmacy Electronically, [id number]... Start Date: 09/29/21 Status: Ordered Ventolin 90 mcg Inhaler 2, puffs, Inhalation, 4 times a day, PRN, Refills 0, Maintenance, 11/26/18 9:56:44 EST Start Date: 11/26/18 Status: Ordered Vitamin B-12 500 mcg oral tablet 1 tablet = 500 mcg, By Mouth, Daily, # 90 tablet, 1 Refills, Maintenance, 09/11/23 9:07:00 EST, Tablet, [facility]/pharmacy #[id number], Partial fill upon patient request [...] oldest [Reference Range]: 1 Height 165 cm (09/12/23 1:12 PM) Weight 104.54 kg (09/12/23 1:12 PM) Oxygen Saturation [94-100 %] 100 % (09/12/23 1:12 PM) Pulse Rate [55-90 bpm] 92 bpm *H* (09/12/23 1:12 PM) Body Mass Index [18.5-24.99 kg/m2] 38.4 kg/m2 *>HHI* (09/12/23 1:12 PM) Blood Pressure [90-138/55-84 mm Hg] 118/ 64mm Hg (09/12/23 1:12 PM) Mode of Delivery (Oxygen) Room air (09/12/23 1:12 PM) Blood pressure sites Arm, right (09/12/23 1:12 PM) Weight Obtained Via Patient/family state d (09/12/23 1:12 PM) Social History Social History Type Response Smoking Status 5-9 cigarettes (betw een 1/4 to 1/2 pack)/day in last 30 days entered on: 04/04/23 Sex Female Note * Varghese , Jen: PERFORM, SIGN, VERIFY Event Display: Patient Education/Instruction Authored Date: [id number] [facility] [address] Clinical Summary Name TAYLOR SALAZAR Age 48 Years 1975 PCP Broderick Kidd MD PCP Visit Date 09/12/2023 12:46:00 Additional Instructions: Scheduled Appointments?? Future Appointments ?[facility] ?[address]??[place],??[place],??[address] ?Phone:??[phone]?Fax:??-- ?Appt. Date:??09/23/2023?2:15 PM ?Scheduled Provider:??[id number] ?[facility] ?[address] ?[place],??[place],??[address] ?Phone:??--?Fax:??-- ?Appt. Date:??09/27/2023?10:30 AM ?Scheduled Provider:??José Miguel Bustos Follow-Up Instructions ?? With: Address: When: Anshul MEHTA, Jean Claude Pope , only if needed Diagnosis Medications: Please continue your medications until [...] needed Wheezing/Shortnessof Breath. Next Dose: alpha-lipoic acid (Arhjn-Fzhcae-Xdid 300 mg oral capsule) 1 capsule Oral twice a day. Refills: 5. Next Dose: amiTRIPTYLINE (amitriptyline 10 mg oral tablet) 1 tab(s) Oral Daily at Bedtime. Refills: 0. Next Dose: Ammonium Lactate 12% (ammonium lactate [...] Tablet) Oral twice a day. Next Dose: Clonazepam (clonazepam 0.5 mg oral tablet) 1 Milligram Oral 3 times a day. Next Dose: Clonidine (cloNIDine 0.1 mg oral tablet) 1 tab(s) Oral Daily at Bedtime. Next Dose: Cyanocobalamin (cyanocobalamin 1000 mcg oral tablet) 1 tab(s) Oral Daily. Refills: 1. Next Dose: Cyanocobalamin (Vitamin B-12 500 mcg oral tablet) 1 tab(s) Oral Daily for 90 Days. Refills: 1. Next Dose: Cyanocobalamin (Vitamin B12 500 mcg oral tablet) 1 tab(s) Oral Daily. Refills: 1. Next Dose: Diclofenac Topical (diclofenac 1% topical gel) APPLY TOPICALLY 4 TIMES A DAY, NEEDED NEUROPATHICPAIN. Refills: 2. Next Dose: Duloxetine (Cymbalta 30 mg oral enteric coated capsule) 1 capsule Oral twice a day. Next Dose: Durable Medical Equipment (Bilateral Circaid lower leg Juxtafits) 2 pair Bilateral Circaid lower leg Juxtafits dx bilateral lower extremity lympahdema 189.0. Refills: 0. Next Dose: Durable Medical Equipment (Compression Stockings) surgical, calf length 20-30 mm Hg ONE pair for lower extermity edema R22.43. Refills: 1. Next Dose: Famotidine (famotidine 20 mg oral tablet) 1 tab(s) Oral twice a day. Refills: 1. Next Dose: Hydroxychloroquine (Plaquenil 200 mg oral [...] twice a day as needed NEEDED FOR DIZZINESS. Refills: 0. Next Dose: mirabegron (Myrbetriq 50 mg oral tablet, extended release) 1 tab(s) Oral Daily. DO NOT CRUSH OR CHEW.. Refills: 1. Next Dose: Miscellaneous Rx (RIBOFLAVIN 400 MG TABLET) 1 tab(s) Oral Daily. Refills: 9. Next Dose: Montelukast (Singulair 10 mg oral tablet) 1 tab(s) Oral Daily in PM. Next Dose: Naratriptan (naratriptan 2.5 mg oral tablet) 1 tab(s) Oral Daily as needed for migraine headache. may repeat dose once in 4 hours. Refills: 1. Next Dose: Ondansetron (ondansetron 8 mg oral tablet) 1 tab(s) Oral Daily as needed Nausea. For bad nausea days.. Refills: 0. Next Dose: PEG Electrolyte Solution (PEG-3350 with Electrolytes (Eqv-GoLYTELY) oral powder for reconstitution)240 Milliliter Oral every 15 minutes. split prep method 1st half 5 pm evening before , 2nd half 6 hours prior to procedure. Refills: 0. Next Dose: PredniSONE (predniSONE 10 mg oral tablet) Next Dose: Pregabalin (pregabalin 200 mg oral capsule) 1 capsule Oral twice a day. Refills: 5. Next Dose: Riboflavin (riboflavin 400 mg oral capsule) 1 capsule Oral Daily. Refills: 2. Next Dose: Risperidone (RisperDAL 1 mg oral tablet) 1 tab(s) Oral Daily at Bedtime. Next Dose: Allergy Info:?? No Known Medication Allergies Medications Given This Visit Future Orders ?No future orders Vital Signs Height 165 cm Weight 104.54 kg BMI 38.4 kg/m2 Blood Pressure 118 mm Hg/64 mm Hg Temperature Pulse Rate 92 bpm Respiratory Rate 02 Sat Mode of Delivery 100 %/Room air You can now view a summary of your hospital visit from the comfort of your home through a free online portal called [employer]. [employer] is a website that allows you to securely view your medical information including discharge summary, medications and follow-up visits. ??You can alsosend a secure electronic message to your doctor???s office to request appointments, renew medications or just ask a question. You can enroll at [email or web address] or register during your next [...] primary care provider, you may find a [facility] provider by calling [facility] at [phone]. [facility], in keeping with [facility] guidance, no longer requires face masks for staff, patientsor visitors in most situations. Similar to time spent indoors at other locations, there is the chance that you were exposed to respiratory viruses during your time with us (such as flu or COVID-19).? If you develop symptoms concerning for a viral respiratory infection, please seek testing (and treatment if indicated) from your medical provider or home test kit. For information about the plan of care [...] Team Personnel Name: Broderick Kidd MD Position: [facility] Resident Member Role: PCP Address: Address: [address] [place] [address] [place] [address]- Care Team Related Persons Name: MARIO GERARD Address: home [address] [place] [address] Name: CARI GARCÍA Address: home [address] [address] Name: NOELLE MAY
--- NOTE | 2024-09-07 14:02 | A.OFFVIS_ITS ---
Vital Signs 09/07/24 14:05 Height 5 ft 6 in Weight 248 lb 14.43 oz BMI 40.2 BP 112/60 Blood Pressure Location Rt radial Position Sitting Pulse 83 Pulse Source Pulse Oximeter Pulse Oximetry (%) 99 Oxygen Delivery Method Room Air Intake Visit Reasons: SLE/CM Intake Note: Patient presents for SLE. Allergies No Known Allergies Allergy (Verified 09/07/24 14:05) Medication List - Last Reconciled 09/07/24 by Seamus Fung MD acetaminophen 1,000 mg PO Q8H PRN albuterol sulfate 2.5 mg inhalation Q6H PRN albuterol sulfate 90 mcg/actuation (Ventolin HFA) 2 puffs inhalation Q6H PRN amitriptyline 10 mg PO BEDTIME arm brace (DAMON Elbow Brace) as directed aspirin 81 mg PO DAILY atorvastatin 80 mg PO DAILY betamethasone dipropionate 0.05% 1 appl topical BID PRN budesonide-formoterol 80-4.5 mcg/actuation (Symbicort) 1 puff inhalation BID PRN cetirizine 10 mg PO DAILY@1500 ciclopirox 1% 1 ea topical Q7D PRN clobetasol 0.05% 1 appl topical BID clonazepam 1 mg PO TID PRN clonidine HCl 0.1 mg PO 3XD PRN CPAP As directed cyanocobalamin (vitamin B-12) (Vitamin B-12) 1,000 mcg PO DAILY cyclobenzaprine 5 - 10 mg (1 - 2 x 5 mg) PO BEDTIME PRN diclofenac sodium 1% 1 g topical QID PRN duloxetine 30 mg PO DAILY famotidine 20 mg PO BID fexofenadine 180 mg PO DAILY fluocinonide 0.05% 1 appl topical BID PRN fremanezumab-vfrm (Ajovy) 225 mg subcut QMONTH hydrochlorothiazide 25 mg PO DAILY hydrocortisone 2.5% 1 appl topical DAILY PRN hydroxychloroquine 200 mg PO BID loratadine 10 mg PO DAILY losartan 50 mg PO DAILY meclizine 25 mg PO TID PRN mirabegron ER (Myrbetriq) 50 mg PO DAILY montelukast 10 mg PO QPM naratriptan 2.5 mg PO DAILY PRN neomycin-polymyxin B-dexameth 3.5mg/mL-10,000 unit/mL-0.1 % 1 drp ophthalmic (eye) QID nicotine 1 patch topical DAILY nitroglycerin (Nitrostat) 0.4 mg sublingual Q5M PRN omeprazole 20 mg PO DAILY ondansetron HCl 8 mg PO TID PRN pantoprazole 20 mg PO DAILY pilocarpine HCl 5 mg PO BID PRN pregabalin 200 mg PO BID riboflavin (vitamin B2) 400 mg PO DAILY risperidone 2 mg PO BEDTIME rizatriptan 10 mg PO DAILY PRN sodium fluoride-pot nitrate 1.1-5 % 1 appl PO BID ticagrelor (Brilinta) 90 mg PO BID varicella-zoster [id number] (PF) 50 mcg/0.5 mL (Shingrix (PF)) 50 mcg intramuscularly 2 doses (at 0 & 2 months) HPI Comments Details: 49-year-old female with SLE returns for follow-up. She remains on hydroxychloroquine 200 mg Twice daily. She has received 3 monthly infusions of Saphnelo. Infusions were uneventful. She states that she feels better overall. About 75% improvement in her overall aches, pains and fatigue. The rashes on her back resolve. She is no longer itchy. She states that she continues to have some right knee pain. She was evaluated by Orthopedics, she had a steroid injection with little relief. She continues to use a cane. Continues to smoke about 10 cigarettes a day. Initial history: This is a 48-year-old female with a past medical history of SLE who presents as a new patient. Patient used to follow-up with Dr. Pineda. She was unable to get an appointment with dr. Marquez at his new practice. She states that she was diagnosed with SLE around 17 years ago when she developed a butterfly rash and diffuse joint pain. She stated that she was treated with prednisone consistently at 5 mg daily for about 8 years. She was also started on hydroxychloroquine. She has been on hydroxychloroquine since her diagnosis. She states that she took methotrexate for 2 months about 7 years ago and according to patient she lost her smell and taste afterwards. He was told that this was likely a side effect of methotrexate. It did not recover when methotrexate was discontinued. Five years ago she was on Benlysta infusions for about 8 months. She stated that was helping reduce the frequency of her flare-ups, but eventually it became ineffective. Per patient 5 years ago patient presented to the hospital with right lower extremity DVT. According to patient she was on blood thinners for some time. States that she has been wearing compression stockings for about 10 years. Patient was recently evaluated by a prn occupational therapist for respiratory bronchiolitis versus extrinsic allergic alveolitis and was started on prednisone 40 mg daily a month ago with improvement of her joint pain. [facility] Medical History Non-ST elevated myocardial infarction (non-STEMI) CAD (coronary artery disease) Smoker Dvt femoral (deep venous thrombosis) Gout GERD (gastroesophageal reflux disease) Vertigo Asthma Migraine Anxiety and depression Fibromyalgia Neuropathy H/O Sjogren's disease Discoid lupus Lupus Surgical History S/P cardiac catheterization Hx of hysterectomy Hx of thumb surgery Hx of knee surgery Family History Other Arthritis Lupus Social History Household Members: Family Housing: Apartment Do you presently have visiting nurse or other home services: No Alcohol intake: former Patient Tobacco Use Status: Current everyday Tobacco user Tobacco use type: Cigarette Cigarette Packs Per Day: 0.5 Cigarettes Per Day: 10.0 service: No Current occupational status: unemployed Female Reproductive History Menstrual Total pregnancies: 4 Number of Living Children: 4 Review of Systems Musc Reports arthralgias and Denies joint swelling Skin/Breast Denies pruritus and Denies rash Physical Exam Vital Signs: Last Vital Signs Pulse 83 09/07/24 14:05 BP 112/60 09/07/24 14:05 Pulse Ox 99 09/07/24 14:05 Oxygen Delivery Method Room Air 09/07/24 14:05 BMI result Body Mass Index 40.2 Const General: cooperative, healthy appearing and comfortable Nutritional Appearance: obese morbidly obese Orientation/consciousness: patient oriented x3 Limitations: ambulation with cane HEENT Head: Yes normocephalic and Yes atraumatic Resp Effort & Inspection: normal respiratory effort and able to speak in complete sentences Auscultation: clear to auscultation bilaterally Cardio Rate: regular rate Skin Other: Hypopigmented and hyperpigmented rashes on face. 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 Saphnelo infusions has a 3 months ago. Infusions have been uneventful. There has been significant improvement in patient's symptoms including fatigue, joint pains, body aches, skin rashes. Continue Saphnelo monthly infusions. Continue hydroxychloroquine 200 mg Twice daily Labs before next visit in 4 months (2) Long-term use of hydroxychloroquine: Comment: Eye exam okay 03/2024 Code(s): Z79.899 - Other senior care (current) drug therapy Category: Medical Plan: Patient follows up regularly with Ophthalmology (3) Respiratory bronchiolitis associated interstitial lung disease: Code(s): J84.115 - Respiratory bronchiolitis interstitial lung disease Category: Medical Plan: Received steroid cause bar pulmonary. Tapered off in October/2023 without recurrence of symptoms (4) Immunization counseling: Code(s): Z71.85 - Encounter for immunization safety counseling Category: Medical Plan: Patient received flu vaccine, COVID booster and Shingrix vaccines. (5) Tobacco abuse counseling: Code(s): Z71.6 - Tobacco abuse counseling Category: Medical Plan: Patient continues to smoke 10 cigarettes a day. She also uses nicotine patches and gums. She could not tolerate Chantix in the past. Discussed with patient that she has history of lupus and she just had CAD and stent placed. 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 It has been well tolerated so far Advised patient to wear a mask during her flight to [place] Plan I spent 45 minutes reviewing patient's chart, evaluating patient, ordering d iagnostic workup, counseling patient and documenting in the chart Orders: Orders Complement C3 4 Months M32.9 - Systemic lupus erythematosus, unspecified C Reactive Protein 4 Months M32.9 - Systemic lupus erythematosus, unspecified Protein Creatinine Ratio, Ur 4 Months M32.9 - Systemic lupus erythematosus, unspecified Complete Blood Count Auto Diff 4 Months M32.9 - Systemic lupus erythematosus, unspecified Comprehensive Met. Panel 4 Months M32.9 - Systemic lupus erythematosus, unspecified Anti DNA DS Antibody 4 Months M32.9 - Systemic lupus erythematosus, unspecified Complement C4 4 Months M32.9 - Systemic lupus erythematosus, unspecified Erythrocyte Sedimentation Rate 4 Months M32.9 - Systemic lupus erythematosus, unspecified UA w Microscopic 4 Months M32.9 - Systemic lupus erythematosus, unspecified Coding Level of Care Code Est Pt Level 5 (20486) Complex EM visit Add On G2211 Diagnoses Lupus M32.9 Long-term use of hydroxychloroquine Z79.899 Respiratory bronchiolitis associated interstitial lung disease J84.115 Immunization counseling Z71.85 Tobacco abuse counseling Z71.6 High risk medication use Z79.899
[2024-09-07 14:05] VITALS: BP 112/60; PULSE 83; O2SAT 99; BMI 40.2
== END 2024-09-07 14:31 | disposition home or self-care (01) ==
PROVIDERS: PCP Student in an Organized Health Care Education/Training Program; Visit Provider Student in an Organized Health Care Education/Training Program
DX: M32.9 Systemic lupus erythematosus, unspecified (principal); Z79.899 Other long term (current) drug therapy; J84.115 Respiratory bronchiolitis interstitial lung disease; Z71.85 Encounter for immunization safety counseling; Z71.6 Tobacco abuse counseling
CPT/HCPCS: 99215; G2211

== ENCOUNTER → 2024-09-07 13:53 | Outpatient (BNVA) | payer OTHER, SELFPAY | PROVIDERS: PCP Student in an Organized Health Care Education/Training Program; Visit Provider Student in an Organized Health Care Education/Training Program | DX: M32.9 Systemic lupus erythematosus, unspecified (principal); J84.115 Respiratory bronchiolitis interstitial lung disease; F17.210 Nicotine dependence, cigarettes, uncomplicated; Z71.85 Encounter for immunization safety counseling; Z71.6 Tobacco abuse counseling; Z79.899 Other long term (current) drug therapy | CPT/HCPCS: 99212 ==

== ENCOUNTER 2024-12-29 11:58 | Outpatient (REF) | payer OTHER, SELFPAY ==
[2024-12-29 12:20] LABS: MANUAL DIFF FLAG NO
[2024-12-29 12:30] LABS: Basophils Absolute Auto 0.1 X10*3/uL (0.0-0.2); Basophils Percent Auto 0.7 % (0-2); Eosinophils Absolute Auto 0.3 X10*3/uL (0.0-0.4); Eosinophils Percent Auto 3.2 % (0-4); Hematocrit 34.4 % (37.0-47.0); Hemoglobin 11.6 g/dl (12.0-16.0); Imm Gran Abs Auto 0.05 X10*3/uL (0.00-0.03); Imm Gran Pct Auto 0.5 % (0.0-0.4); Lymphocytes Absolute Auto 2.5 X10*3/uL (1.2-4.9); Lymphocytes Percent Auto 26.4 % (20-40); Mean Corpuscular HGB Conc 33.7 g/dl (31.0-35.0); Mean Corpuscular Hemoglobin 28.9 pg (27.0-33.0); Mean Corpuscular Volume 85.6 fL (80.0-98.0); Mean Platelet Volume 11.2 fL (9.4-12.3); Monocytes Absolute Auto 0.5 X10*3/uL (0.1-1.2); Neutrophils Percent Auto 64.2 % (45-73); Platelet Count 322 X10*3/uL (160-400); Red Blood Count 4.02 X10*6/uL (4.20-5.50); Red Cell Distribution Width 15.2 % (11.0-16.0); White Blood Count 9.4 X10*3/uL (4.8-10.8)
[2024-12-29 12:38] LABS: Appearance Urine Cloudy; Color Urine Yellow; Glucose Urine UA Negative (Negative); Leukocyte Esterase Urine Negative (Negative); Nitrite Urine Negative (Negative); UMIC TRIGGER UA YES; Urine Blood Moderate (2+) (Negative); Urine Ketones Trace mg/dL (Negative); Urine Protein 30 (1+) mg/dL (Neg-Trace)
[2024-12-29 12:41] LABS: Bacteria Urine 4+ (None Seen); WBC Urine 0-5 /HPF (0-5)
[2024-12-29 12:59] LABS: Alanine Aminotransferase 17 U/L (0-31); Albumin Level 3.7 g/dL (3.5-5.0); Alkaline Phosphatase 83 U/L (39-117); Anion Gap 10 (12-20); Aspartate Amino Transferase 15 U/L (5-31); Bilirubin Total 0.2 mg/dL (0.0-1.0); Blood Urea Nitrogen 7 mg/dL (9-16); Calcium 8.9 mg/dL (8.4-10.2); Carbon Dioxide 25 mmol/L (22-29); Chloride 105 mmol/L (96-108); Estimated Glomerular Filt Rate > 60; Glucose Random 96 mg/dL (60-115); Potassium 3.9 mmol/L (3.3-5.1); Sodium 136 mmol/L (135-145); Total Protein 7.6 g/dL (6.5-8.0)
[2024-12-29 13:06] LABS: Erythrocyte Sedimentation Rate 27 MM/HR (0-20)
[2024-12-29 13:12] LABS: Creatinine Urine 186.84 mg/dL; Protein/Creatinine Ratio, Ur 0.06 (<0.2); Total Protein Urine Random 12 mg/dL (<12)
--- OUTSIDE RECORDS SUMMARY | 2024-12-29 14:38 | XMS_ITS | Clinical Summary ---
Demographics Address [address] [facility] [address] [place] [address] Work Phone Home Phone Mobile Phone Preferred Language es Marital Status Single Yazidism Affiliation Unknown Race Other Race Ethnic Group or Author Organization [employer] [facility] Address [address] [facility] [address] [place] [address] Care Team Providers Care Compound Mixer Name Role Phone Unavailable Primary Care Provider Unavailabl e Allergies No known active allergies Medications Ventolin HFA 108 (90 Base) MCG/ACT inhaler TAKE 2 PUFFS BY MOUTH EVERY 6 HOURS NEEDED FOR WHEEZE OR FOR SHORTNESS OF BREATH 4 Active amitriptyline (Elavil) 10 MG tablet Take 10 mg by mouth at bedtime. 3 Active Symbicort 80-4.5 MCG/ACT inhaler INHALE 1 PUFF TWICE A DAY NEEDED WHEEZING/SHORT NESS OF BREATH 3 Active Calcium Carb-Cholecalcife rol 500-10 MG-MCG chewable tablet Acti ve cetirizine (ZyrTEC) 10 MG tablet TAKE 1 TABLET BY MOUTH EVERY DAY IN THE AFTERNOON 3 Active Ciclopirox 1 % shampoo APPLY TO SCALP TWICE WEEKLY, LEAVE ON 5 MINUTES THEN WASH OFF 3 Active clonazePAM (KlonoPIN) 1 MG tablet Take 1 mg by mouth if needed in the morning, at noon, and at bedtime. 3 Active cloNIDine (Catapres) 0.1 MG tablet TAKE 1 TABLET BY MOUTH THREE TIMES A DAY MAY TAKE 0.2 MG AT BEDTIME AND 0.1 MG DURING THE DAY 3 Active [facility] B-12 500 MCG tablet Take 500 mcg by mouth in the morning. 3 Active cyclobenzaprine (Flexeril) 5 MG tablet TAKE 1 TO 2 TABLETS BY MOUTH AT BEDTIME NEEDED FOR MUSCLE SPASM 4 Active Diclofenac Sodium 1 % gel 4 Active DULoxetine (Cymbalta) [address] capsule TAKE 1 CAPSULE BY MOUTH EVERY MORNING FOR DEPRESSION, ANXIETY, PAIN 3 Active fexofenadine (Lety) 180 MG tablet Take 180 mg by mouth in the evening. 3 Active FLUoxetine (PROzac) 20 MG capsule Take 1 capsule by mouth at bed time. 2 Active hydroCHLOROthiazi de (HYDRODiuril) 25 MG tablet Take 25 mg by mouth in the morning. 3 Active hydrocortisone 2.5 % ointment APPLY TO FACE TWICE A DAY NEEDED FOR FLARES, DECREASE USE SYMPTOMS IMPROVE 3 Active lidocaine (Lidoderm) 5 % patch APPLY 1 PATCH TOPICALLY DAILY,X30 DAYS NEEDED FOR PAIN MILD, REMOVE AFTER 12 HOURS 3 Active hydrOXYzine HCl (Atarax) 25 MG tablet Take 25 mg by mouth every 6 (six) hours if needed. Active losartan (Cozaar) 50 MG tablet Take 50 mg by mouth in the morning. 3 Active meclizine (Antivert) 25 MG tablet TAKE 1 TABLET BY MOUTH TWICE A DAY NEEDED FOR DIZZINESS 3 Active mirabegron ER (Myrbetriq) 50 MG 24 hr tablet Take 1 tablet by mouth. 2 Active montelukast (Singulair) 10 MG tablet Take 10 mg by mouth in the morning. 6 Active ondansetron (Zofran) 8 MG tablet TAKE 1 TABLET BY MOUTH EVERY DAY NEEDED FOR NAUSEA AND VOMITING 3 Active pregabalin (Lyrica) 200 MG capsule Take 200 mg by mouth. 3 Active Riboflavin 400 MG capsule Take 400 mg by mouth. 0 Active SUMAtriptan (Imitrex) 100 MG tablet Take 1 tablet by mouth. 1 Active rizatriptan (Maxalt) 10 MG tablet PLEASE SEE ATTACHED FOR DETAILED DIRECTIONS 3 Active amoxicillin (Amoxil) 500 MG capsule TAKE 1 CAPSULE (500 MG) BY MOUTH EVERY 8 HOURS FOR 7 DAYS 21 capsule 4 Active [facility] Acetaminophen Ex St 500 MG tablet TAKE 1 TABLET BY MOUTH EVERY 8 HOURS NEEDED FOR MILD PAIN FOR UPTO 5 DAYS 15 tablet 4 Active Sod Fluoride-Potassiu m Nitrate 1.1-5 % paste [place] teeth for 2 minutes, morning and night. Spit, do not rinse. Do not eat or drink anything for 30 minutes following brushing. 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 Localized gingival recession 12/27/2023 Periodontal disease 12/27/2023 Dental calculus 12/27/2023 Immunizations Name Administration Dates Next Due Moderna Covid-19 Vaccine 6+ Bivalent 01/03/2023 Social History Tobacco Use Types Packs/Day Years Used Date Smoking Tobacco: Every Day Cigarettes Smokeless Tobacco: Never Tobacco Cessation:Ready to Q uit: Not Asked; Counseling Given: Not Answered Alcohol Use Standard Drinks/Week Comments Defer 0 (1 standard drink = 0.6 oz pur e alcohol) Comments Unknown Sex and Gender Information Value Date Recorded Sex Assigned at Female 09/03/2022 10:20 AM EDT Legal Sex Female 10:20 AM EDT Gender Identity Female 09/03/2022 10:20 AM EDT Sexual Orientation Straight 09/03/2022 10 :20 AM EDT Last Filed Vital Signs Vital Sign Reading Time Taken Comments Blood Pressure 130/86 04/06/2024 1:02 PM EDT Pulse 72 03/16/2024 2:56 PM EDT Temperature - - Respiratory Rate - - Oxygen Saturation - - Inhaled Oxygen Concentration - - Weight - - Height - - Body Mass Index - - Plan of Treatment Health Maintenance Due Date Last Done Comments CT Colonography 1977 Colonoscopy 1977 Colorectal Cancer Screening 1977 Depression Screening 1977 FIT DNA/Cologuard 1977 FIT 1977 FOBT 1977 HIV Screening 1977 Lipid Panel 1977 SDOH Screening 1977 Sigmoidoscopy 1977 Alcohol/Substance Use Screening 1989 Family Planning (PISQ) 02/06/1992 Hepatitis C Screening 1995 Zoster Vaccines (1 of 2) 02/06/1996 Pap Smear 1998 Cervical Cancer Screening 2007 HPV/Cotest 2007 Mammogram 2017 Dental Oral Exam 06/10/2024 12/10/2023, , 04/20/2016, Additional history exists Dental Prophylaxis 06/27/2024 12/27/2023, 1 12/21/2017, 04/17/2018, Additional history exists COVID-19 Vaccine ( season) 2024 01/03/2023, 09/20/2021, 01/24/2021, Additional history exists Dental X-Ray: Bitewings 02/07/2025 02/07/20, 12/10/2023, 11/29/2023, Additional history exists Tobacco Screening 03/23/2025 03/23/2024 Dental X-Ray: Full Mouth 12/11/2026 024, 11/24/2015, 10/10/2015 DTaP/Tdap/Td Vaccines (3 - Td or Tdap) 04/25/2033 04/25/2023, 01/28/2013, 07/28/2008, Additional history exists RSV Patients and Patients Aged 60 years or older (1 - 1-dose 75+ series) 02/06/2052 Hepatitis B Vaccines Completed 03/08/2009, 11/09/2008, 09/29/2008 Pneumococcal Vaccine: Pediatrics (0 to 5 Years) and At-Risk Patients (6 to 49) Years) Completed 10/11/2023, 10/25/2015 Influenza Vaccine Completed 07/09/2024, , 09/27/2023, Additional history exists HIB Vaccines Aged Out No longer eligi ble based on patient's age to complete this topic HPV Vaccines Aged Out No longer eligi ble based on patient's age to complete this topic Hepatitis A Vaccines Aged Out No long er eligible based on patient's age to complete this topic IPV Vaccines Aged Out No longer eligi ble based on patient's age to complete this topic Meningococcal Vaccine Aged Out No dottie bereket eligible based on patient's age to complete this topic RSV under 20 months Aged Out No longe r eligible based on patient's age to complete this topic Rotavirus Vaccines Aged Out No longer eligible based on patient's age to complete this topic Procedures Procedure Name Priority Date/Time Associated Diagnosis Comments PROTEIN CREATININE RATIO, URINE Routine 12/29/2024 12:09 PM EST BITEWINGS - 2 RADIOGRAPHIC IMAGES Routine 02/07/2024 11:00 AM EDT PROPHYLAXIS - ADULT Routine 12/27/2023 1 1:00 AM EST INTRAORAL - COMPLETE SERIES OF RADIOGRAPHIC IMAGES Routine 12/10/2023 9:30 AM EST PERIODIC ORAL EVALUATION - ESTABLISHED PATIENT Routine 12/10/2023 9:30 AM EST from Last 3 Months or Most Recently Relevant to Health Maintenance Results * Protein Creatinine Ratio, Urine (12/29/2024 12:09 PM EST) Creatinine, Urine 186.84 mg/dL [facility] Protein, Total, Random Urine 12 <12 mg/dL [facility] Protein/Creati nine Ratio, Ur 0.06 <0.2 [facility] Comment:The spot urine prote in:creatinine ratio may increase to 0.3during normal . 12/29/2024 12:0 9 PM EST 12/29/2024 12:29 PM EST us Generic External Data Provider LAB URINE ORDERAB LES Final Result [facility] [address] [place], [place] [id number] [phone] from Last 3 Months Insurance [facility] STANDARD * Guarantor: Marilyn Wells I Account Type Relation to Patient Date of Phone Billing Address Dental Self [address] [place] [id number] [facility] MEDICAID STAND ADULT * Guarantor: Marilyn Wells I Account Type Relation to Patient Date of Phone Billing Address Personal/Family Self [address] [place] [id number] * Guarantor: Mrailyn Wells I Account Type Relation to Patient Date of Phone Billing Address Personal/Family Self [address] [place] [phone] * Guarantor: Marilyn Wells I Account Type Relation to Patient Date of Phone Billing Address Personal/Family Self [address] [place] [id number]
--- OUTSIDE RECORDS SUMMARY | 2024-12-29 14:38 | XMS_ITS | Continuity of Care Document ---
Author Organization [facility] Address [address] [place] [address]- Care Team Providers Care Aemt Name Role Phone Bernabe MEHTA, Broderick Primary Care Physician [phone] Encounter [facility] Date(s): 11/10/24 - 12/10/24 [facility] [address] [place] [address]- Encounter Type: Triage Allergies, Adverse Reactions, Alerts No Known Allergies [...] 04/25/23 Given tetanus/diphtheria/pertussis, acel(Tdap) 3 01/28/13 Given [id number] bivalent booster vax 01/03/23 Recorded SARS-CoV-2 (COVID-19) [...] Recor ded 1Result Comment: received at [facility] on [facility] [place] 2Admin Note: flulaval vis given vis date 05/05/2012 3Admin Note: VIS GIVEN VIS DATE 11/27/2011 4Result Comment: received 2nd dose at [facility] 5Result Comment: received at [facility] Medications acetaminophen 500 mg oral tablet 2 tablet, By Mouth, Every 8 hours, PRN NEEDED FOR PAIN, # 100 tablet, 3 Refills, Maintenance, 12/02/24 5:10:00 PM EST[facility] 173, cm, 12/02/24 16:39:00 EST, Height, 108.1, kg,10/16/24 8:53:00 EST, Dry Weight Start Date: 12/02/24 Status: Ordered Quantity: 100.0 Unit: tablet Repeat number: 4 Ajovy Autoinjector 225 mg/1.5 mL subcutaneous solution = 225 mg, Subcutaneous Injection, Every 28 days, # 1 kit, 5 Refills, Maintenance, 08/10/24 9:30:00 AM EDT, [facility], Partial fill upon patient request if the prescription is for a schedule II opioid drug., 173, cm, 07/29/24 15:21:00 EDT, Height, 101.4, kg, 04/27/24 14:38:00 EDT, Dry Weight Start Date: 08/10/24 Status: Ordered Quantity: 1.0 Unit: kit Repeat number: 6 amitriptyline 10 mg oral tablet 10 mg, 1, tablet, By Mouth, Daily at bedtime, # 90 tablet, Refills 3, Tot. Refills 3, Maintenance, 07/24/24 5:29:00 PM EDT, Route to Pharmacy Electronically, [facility]/pharmacy #[id number], Partial fill upon patient request if the prescription is for a schedule II opioid drug., 173, cm, 06/08/24 14:38:00 EDT, Height, 101.4, kg, 04/27/24 14:38:00 EDT, Dry Weight Start Date: 07/24/24 Status: Ordered Quantity: 90.0 Unit: tablet Repeat number: 4 amitriptyline 10 mg oral tablet 1, tablet, By Mouth, Daily at bedtime, # 90 tablet, Refills 0, Tot. Refills 0, Maintenance, 10/16/24 9:24:00 AM EST, Route to Pharmacy Electronically, [id number], 173, cm, 10/16/24 8:53:00 EST, Height, 108.1, kg, 10/16/24 8:53:00 EST, Dry Weight Start Date: 10/16/24 Status: Ordered Quantity: 90.0 Unit: tablet Repeat number: 1 ammonium lactate 5% topical lotion 1 application, Topically, 2 times a day, PRN Dry Skin, apply and rub in well, # 120 Gm, 0 Refills, Maintenance, 12/05/22 5:09:00 PM EST, Lotion, [facility]/pharmacy #[id number], Partial fill upon patient request ifthe prescription is for a schedule II opioid drug., 1 application Topically 2 times a day,x14 days,PRN:Dry Skin,Instr:apply and rub in well, 165.1, cm, 12/05/22 15:21:00 EST, Height Start Date: 12/05/22 Stop Date: 12/19/22 Status: Ordered Quantity: 120.0 Unit: g Repeat number: 1 Indication: Xerosis cutis Aspirin Low Dose 81 mg oral delayed release tablet 1 tablet, By Mouth, Daily, # 90 tablet, 0 Refills, Maintenance, 10/20/24 11:40:00 AM EST, [id number], 173, cm, 10/16/24 8:53:00 EST, Height, 108.1, kg, 10/16/24 8:53:00 EST, Dry Weight Start Date: 10/20/24 Status: Ordered Quantity: 90.0 Unit: tablet Repeat number: 1 atorvastatin 80 mg oral tablet = 80 mg, By Mouth, Daily at bedtime, # 90 capsule, 3 Refills, Maintenance, 11/02/24 1:22:00 PM EST,Tablet, [facility]/pharmacy #[id number], Partial fill upon patient request if the prescription is for a scheduleII opioid drug., 173, cm, 11/02/24 13:12:00 EST, Height, 108.1, kg, 10/16/24 8:53:00 EST, Dry Weight Start Date: 11/02/24 Stop Date: 10/28/25 Status: Ordered Quantity: 90.0 Unit: capsule Repeat number: 4 B-12 1,000 MCG TABLET B-12 1,000 MCG TABLET, 1, tablet, By Mouth, Daily, # 90 tablet, 1 Refills, Maintenance, 09/20/24 10:01:00 AM EST, 173, cm, 08/19/24 12:16:00 EDT, Height, 101.4, kg, 04/27/24 14:38:00 EDT, Dry Weight Start Date: 09/20/24 Status: Ordered Quantity: 90.0 Unit: tablet Repeat number: 1 Brilinta (ticagrelor) 90 mg oral tablet 1 tablet, By Mouth, 2 times a day, # 60 tablet, 5 Refills, Maintenance, 11/02/24 1:23:00 PM EST, [facility]/pharmacy #[id number], 173, cm, 11/02/24 13:12:00 EST, Height, 108.1, kg, 10/16/24 8:53:00 EST, Dry Weight Start Date: 11/02/24 Status: Ordered Quantity: 60.0 Unit: tablet Repeat number: 6 Calcium 250 mg + Vitamin D 125 IU Tablet By Mouth, 2 times a day, 0 Refills, Maintenance, 09/23/12 5:09:17 PM EST Start Date: 09/23/12 Status: Ordered Repeat number: 1 clonazepam 0.5 mg oral tablet = 1 mg, By Mouth, 3 times a day, 0 Refills, Maintenance, 04/16/13 3:20:03 PM EDT, Tablet Start Date: 04/16/13 Status: Ordered Repeat number: 1 cloNIDine 0.1 mg oral tablet 0.1 mg, 1, tablet, By Mouth, Daily at bedtime, Refills 0, Maintenance, 10/15/18 12:11:42 PM EST Start Date: 10/15/18 Status: Ordered Repeat number: 1 [facility] VITAMIN B-12 500 MCG TAB [facility] VITAMIN B-12 500 MCG TAB, 1, tablet, By Mouth, Daily, # 90 tablet, 1 Refills, Maintenance, 03/27/24 11:23:00 AM EDT, 165, cm, 03/24/24 10:33:00 EDT, Height, 100, kg, 04/04/23 16:15:00 EDT, Dry Weight Start Date: 03/27/24 Status: Ordered Quantity: 90.0 Unit: tablet Repeat number: 1 cyclobenzaprine 5 mg oral tablet 0 Refills, Maintenance, 03/10/24 10:15:00 AM EDT, Partial fill upon patient request if the prescription is for a schedule II opioid drug. Start Date: 03/10/24 Status: Ordered Repeat number: 1 diclofenac 1% topical gel See Instructions, APPLY TOPICALLY 4 TIMES A DAY, NEEDED NEUROPATHIC PAIN, # 100 Gm, 2 Refills, Maintenance, 10/21/24 9:00:00 AM EST, [id number], 25, APPLY TOPICALLY 4 TIMES A DAY, NEEDED NEUROPATHIC PAIN, 173, cm, 10/16/24 8:53:00 EST, Height, 108.1, kg, 10/16/24 8:53:00 EST, Dry Weight Start Date: 10/21/24 Status: Ordered Quantity: 100.0 Unit: g Repeat number: 1 duloxetine 30 mg oral enteric coated capsule 1 capsule = 30 mg, By Mouth, Daily, do not crush or chew, 0 Refills, Maintenance, 04/27/24 6:08:00 PM EDT, [facility], Partial fill upon patient request if the prescription is for a schedule II opioiddrug. Start Date: 04/27/24 Status: Ordered Repeat number: 1 famotidine 20 mg oral tablet 1, tablet, By Mouth, 2 times a day, # 180 tablet, Refills 1, Maintenance, 02/24/24 12:56:00 PM EDT, Route to Pharmacy Electronically, [id number], 165, cm, 02/06/24 9:54:00 EDT, Height, 100, kg, 04/04/23 16:15:00 EDT, Dry Weight Start Date: 02/24/24 Status: Ordered Quantity: 180.0 Unit: tablet Repeat number: 1 lidocaine 5% topical film 1 patch, Topically, Daily, PRN NEEDED FOR PAIN MILD, REMOVE AFTER 12 HOURS, # 30 patch, 0 Refills, Maintenance, 02/05/23 11:52:00 PM EDT, [id number], 30, APPLY 1 PATCH TOPICALLY DAILY,X30 DAYS NEEDED FOR PAIN MILD, REMOVE AFTER 12 HOURS, 168, cm, 01/15/23 7:16:00 EDT, Height, 99.4, kg, 01/15/23 7:16:00 EDT, Dry Weight Start Date: 02/05/23 Status: Ordered Quantity: 30.0 Unit: patch Repeat number: 1 loratadine 10 mg oral tablet 1, tablet, By Mouth, 2 times a day, # 60 tablet, Refills 0, Maintenance, 12/31/22 2:48:00 PM EST, Route to Pharmacy Electronically, [id number], 165.1, cm, 12/05/22 15:21:00 EST, Height Start Date: 12/31/22 Stop Date: 01/30/23 Status: Ordered Quantity: 60.0 Unit: tablet Repeat number: 1 losartan 50 mg oral tablet 1 tablet, By Mouth, Daily, # 90 tablet, 1 Refills, Maintenance, 09/16/24 10:17:00 AM EST, [facility]/pharmacy #[id number], 173, cm, 08/19/24 12:16:00 EDT, Height, 101.4, kg, 04/27/24 14:38:00 EDT, Dry Weight Start Date: 09/16/24 Status: Ordered Quantity: 90.0 Unit: tablet Repeat number: 2 meclizine 25 mg oral tablet 1 tablet, By Mouth, 2 times a day, PRN NEEDED FOR DIZZINESS, # 60 tablet, 1 Refills, Maintenance, 11/11/24 12:20:00 PM EST, [id number], 173, cm, 11/02/24 13:28:00 EST, Height, 108.1, kg, 10/16/24 8:53:00 EST, Dry Weight Start Date: 11/11/24 Status: Ordered Quantity: 60.0 Unit: tablet Repeat number: 1 Myrbetriq 50 mg oral tablet, extended release 1 tablet, By Mouth, Daily, DO NOT CRUSH OR CHEW., # 30 tablet, 2 Refills, Maintenance, 11/09/24 11:02:00 AM EST, [facility]/pharmacy #[id number], 173, cm, 11/02/24 13:28:00 EST, Height, 108.1, kg, 10/16/24 8:53:00 EST, Dry Weight Start Date: 11/09/24 Status: Ordered Quantity: 30.0 Unit: tablet Repeat number: 3 Myrbetriq 50 mg oral tablet, extended release 1 tablet, By Mouth, Daily, DO NOT CRUSH OR CHEW., # 30 tablet, 11 Refills, Maintenance, 11/13/24 12:20:00 PM EST, [facility], 173, cm, 11/02/24 13:28:00 EST, Height, 108.1, kg, 10/16/24 8:53:00 EST, Dry Weight Start Date: 11/13/24 Status: Ordered Quantity: 30.0 Unit: tablet Repeat number: 12 naratriptan 2.5 mg oral tablet 1 tablet, By Mouth, Daily, PRN NEEDED FOR MIGRAINE, MAY REPEAT DOSE AFTER 4 HOURS IF NEEDED, # 18 tablet, 2 Refills, Maintenance, 10/13/24 5:11:00 PM EST, [id number], 173, cm, 09/29/24 10:23:00 EST, Height, 101.4, kg, 04/27/24 14:38:00 EDT, Dry Weight Start Date: 10/13/24 Status: Ordered Quantity: 18.0 Unit: tablet Repeat number: 1 nicotine 21 mg/24 hr transdermal film, extended release 2 patch, Topically, Daily, for 30 days, Use for at least 3-6 months. Use two patches for total of 42 mg per day., # 60 patch, 5 Refills, Acute 02/06/25 11:26:00 AM EDT, 08/10/24 11:26:00 AM EDT, Patch, [facility]/pharmacy #[id number], Partial fill upon patient request if the prescription is for a schedule II opioid drug., 2 patch Topically Daily,x30 days,Instr:Use for at least 3-6 months. Use two patches for total of 42 mg per day., 173, cm, 07/29/24 15:21:00 EDT, Height, 101.4, kg, 04/27/24 14:38:00 EDT, Dry Weight Start Date: 08/10/24 Stop Date: 02/06/25 Status: Ordered Quantity: 60.0 Unit: patch Repeat number: 6 nitroglycerin 0.4 mg sublingual tablet 1 tablet = 0.4 mg, Sublingual, Every 5 minutes, not to exceed 3 doses/15 min--if pain persists, seek medical attention, 0 Refills, Maintenance, 08/17/24 11:39:00 AM EDT, Partial fill upon patient request if the prescription is for a schedule II opioid drug. Start Date: 08/17/24 Status: Ordered Repeat number: 1 ondansetron 8 mg oral tablet 1 tablet, By Mouth, Daily, PRN NEEDED FOR NAUSEA AND VOMITING, # 30 tablet, 0 Refills, Maintenance, 09/23/23 10:53:00 AM EST, [id number], 165, cm, 09/12/23 13:12:00 EST, Height, 100, kg, 04/04/23 16:15:00 EDT, Dry Weight Start Date: 09/23/23 Status: Ordered Quantity: 30.0 Unit: tablet Repeat number: 1 pantoprazole 20 mg oral delayed release tablet = 20 mg, By Mouth, Daily, Take for next 12 months while taking aspirin and Brillinta. Refill per PCP or [facility]., # 90 tablet, 3 Refills, Maintenance, 11/02/24 1:23:00 PM EST, [facility], 173, cm, 11/02/24 13:12:00 EST, Height, 108.1, kg, 10/16/24 8:53:00 EST, Dry Weight Start Date: 11/02/24 Stop Date: 10/28/25 Status: Ordered Quantity: 90.0 Unit: tablet Repeat number: 4 Plaquenil 200 mg oral tablet 400 mg, 2, tablet, By Mouth, Daily, Refills 0, Maintenance, 11/28/16 10:20:10 AM EST Start Date: 11/28/16 Status: Ordered Repeat number: 1 pregabalin 150 mg oral capsule 1 capsule = 150 mg, By Mouth, 2 times a day, # 60 capsule, 0 Refills, Maintenance, 10/16/24 9:25:00AM EST, [facility] #[id number], dose reduced to 150mg bid 08/17/24., 173, cm, 10/16/24 8:53:00EST, Height, 108.1, kg, 10/16/24 8:53:00 EST, Dry Weight Start Date: 10/16/24 Status: Ordered Quantity: 60.0 Unit: capsule Repeat number: 1 Pull up diapers Pull up diapers, See Instructions, # 60 each, Refills 11, Tot. Refills 11, Maintenance, Dx: Mixed urinary incontinence M39.46 duration: lifetime, 05/15/24 8:18:00 AM EDT, Supply Start Date: 05/15/24 Status: Ordered Quantity: 60.0 Unit: each Repeat number: 12 riboflavin 400 mg oral tablet 1 tablet, By Mouth, Daily, # 90 tablet, 3 Refills, Maintenance, 12/08/24 2:34:00 PM EST, [id number], 173, cm, 12/02/24 16:39:00 EST, Height, 108.1, kg, 10/16/24 8:53:00 EST, Dry Weight Start Date: 12/08/24 Status: Ordered Quantity: 90.0 Unit: tablet Repeat number: 1 RIBOFLAVIN 400 MG TABLET RIBOFLAVIN 400 MG TABLET, 1, tablet, By Mouth, Daily, # 90 tablet, 3 Refills, Maintenance, 01/21/24 1:34:00 PM EDT, 165, cm, 10/11/23 14:32:00 EST, Height, 100, kg, 04/04/23 16:15:00 EDT, Dry Weight Start Date: 01/21/24 Status: Ordered Quantity: 90.0 Unit: tablet Repeat number: 1 risperiDONE 2 mg oral tablet TAKE 1 TABLET BY MOUTH EVERYDAY AT BEDTIME Start Date: 04/27/24 Status: Ordered Repeat number: 1 Shower chair Shower chair, See Instructions, # 1 each, Refills 0, Tot. Refills 0, Maintenance, Dx: impaired mobility Z74.09 duration: lifetime, 05/15/24 8:18:00 AM EDT, Supply Start Date: 05/15/24 Status: Ordered Quantity: 1.0 Unit: each Repeat number: 1 Singulair 10 mg oral tablet 1 tablet = 10 mg, By Mouth, Daily in PM, # 30 tablet, 0 Refills, Maintenance, 12/26/15 10:10:46 AM EST, Tablet Start Date: 12/26/15 Status: Ordered Quantity: 30.0 Unit: tablet Repeat number: 1 Symbicort 80mcg/4.5mcg Inhaler See Instructions, PRN, 1 puff 2 x per day BRand name covered by [facility], # 1 each, Refills 11, Tot. Refills 11, Maintenance, 10/11/23 11:50:00 AM EST, Instructions Replace Required Details Aerosol, Route to Pharmacy Electronically, [id number], [facility]/pharmacy #[id number], brand name is covered by [facility], 165, cm, 09/27/23 10:21:00 EST, Height, 100, kg, 04/04/23 16:15:00 EDT, Dry Weight Start Date: 10/11/23 Status: Ordered Quantity: 1.0 Unit: each Repeat number: 12 Ventolin HFA 108 mcg/inh inhalation aerosol with adapter 2 puffs, Inhalation, Every 6 hours, PRN NEEDED FOR WHEEZE OR FOR SHORTNESS OF BREATH, # 18 each,5 Refills, Maintenance, 11/27/24 4:28:00 PM EST, [facility], 173, cm, 11/02/24 13:28:00 EST, Height, 108.1, kg, 10/16/24 8:53:00 EST, Dry Weight Start Date: 11/27/24 Status: Ordered Quantity: 18.0 Unit: each Repeat number: 6 Vitamin B-12 1000 mcg oral tablet See Instructions, TAKE 1 TABLET BY MOUTH EVERY DAY, # 90 tablet, Refills 0, Maintenance, 12/04/24 1:50:00 PM EST, Instructions Replace Required Details, Route to Pharmacy Electronically, [facility], 173, cm, 12/02/24 16:39:00 EST, Height, 108.1, kg, 10/16/24 8:53:00 EST, Dry Weight Start Date: 12/04/24 Status: Ordered Quantity: 90.0 Unit: tablet Repeat number: 1 Vitamin C By Mouth, Daily, 0 Refills, Maintenance, 01/07/19 11:24:12 AM EST Start Date: 01/07/19 Status: Ordered Repeat number: 1 Wegovy (0.25 mg dose) subcutaneous solution = 0.25 mg, Subcutaneous Infusion, Every week, # 4 each, 0 Refills, Maintenance, 08/26/24 11:05:00 AM EDT, [id number], Partial fill upon patient request if the prescription is for a schedule II opioid drug., 173, cm, 08/19/24 12:16:00 EDT, Height, 101.4, kg, 04/27/24 14:38:00 EDT, Dry Weight Start Date: 08/26/24 Stop Date: 09/23/24 Status: Ordered Quantity: 4.0 Unit: each Repeat number: 1 Zepbound 2.5 mg/0.5 mL subcutaneous solution = 2.5 mg, Subcutaneous Injection, Every week, rotate injection sites, # 4 each, 0 Refills, Maintenance, 10/30/24 3:09:00 PM EST, Solution, [facility], patient going to d/c mikki, 173, cm, 10/16/24 8:53:00 EST, Height, 108.1, kg, 10/16/24 8:53:00 EST, Dry Weight Start Date: 10/30/24 Status: Ordered Quantity: 4.0 Unit: each Repeat number: 1 Zepbound 5 mg/0.5 mL subcutaneous solution = 5 mg, Subcutaneous Injection, Every week, rotate injection sites, # 4 each, 1 Refills, Maintenance, 11/02/24 1:19:00 PM EST, Solution, [facility], Partial fill upon patient request if the prescription is for a schedule II opioid drug., 173, cm, 11/02/24 13:12:00 EST, Height, 108.1, kg, 10/16/24 8:53:00 EST, Dry Weight Start Date: 11/02/24 Status: Ordered Quantity: 4.0 Unit: each Repeat number: 2 Zepbound Pen 7.5 mg/0.5 mL subcutaneous solution = 7.5 mg, Subcutaneous Infusion, Every week, # 4 each, 2 Refills, Maintenance, 12/02/24 5:08:00 PM EST, [facility], dose increase to 7.5mg 12/02/24, 173, cm, 12/02/24 16:39:00 EST, Height, 108.1, kg, 10/16/24 8:53:00 EST, Dry Weight Start Date: 12/02/24 Status: Ordered Quantity: 4.0 Unit: each Repeat number: 3 Problem List Condition Confirmation Course Effective Dates Status H ealth Status Informant Anxiety 1 Confirmed Active Asthma (clinical diagnosis) 2 Confirmed Active Last pap smear 09/23/12 negative with negative HPV. Status post total vaginal hysterectomy, no further paps needed Confirmed Active Chronic constipation Confirmed Active CAD (coronary artery disease) Confirmed Active De Quervain's tenosynovitis Confirmed Active [...] Active 1Follows with therapist and psychiatrist at [place] per previous notes 2PFTs show no obstruction. However has h/o asthma. Ct chest in 07/27 and pulm note says restrictive lung disease mild similiar to findings on PFT 3Follows with therapist and psychiatrist at [place] per previous notes 4Sleep study in 2015. Recommended CPAP 5Lab 06/03/23 - TSH 5.88, Free T4: 1.13 6Diagnosed in 2006. Followed by [facility]. On Hydroxychloroquin and cyclobenzarpine for spasms Social History Social History Type Response Smoking Status 5-9 cigarettes (betw een 1/4 to 1/2 pack)/day in last 30 days entered on: 04/04/23 Sex Sex Representation Female (finding) Patient Care team information Care Team Personnel Name: Terrence Pa RN Position: S RN Member Role: Primary Care Nurse Name: Broderick Kidd MD Position: [facility] Resident Member Role: PCP Address: [address] [place] [address] [place] [address]- [place] [employer]: Care Team Related Persons Name: MARIO GERARD Name: CARI GARCÍA Name: NOELLE MAY Insurance Providers Guarantor name: TAYLOR SALAZAR Health Plan Information #: 1 Payer: [facility] Member Number: NA Policy Number: NA Group Number: NA
--- OUTSIDE RECORDS SUMMARY | 2024-12-29 14:38 | XMS_ITS | Continuity of Care Document ---
Author Organization [facility] [facility] Address [address], [address] [place] [address]- Care Team Providers Care Stock Mixer Name Role Phone Broderick Kidd MD [id number] Date(s): 11/13/24 - 12/13/24 [facility] [address], [address] [place], [place] [address] Attending Physician: Admtr, Ar8 Admitting Physician: Admtr, Ar8 Referring Physician: Admtr, Ar8 Encounter Type: Triage Allergies, Adverse Reactions, Alerts [...] 04/25/23 Given tetanus/diphtheria/pertussis, acel(Tdap) 3 01/28/13 Given [id number] bivalent booster vax 01/03/23 Recorded SARS-CoV-2 (COVID-19) [...] 07/05/08 Recor ded 1Result Comment: received at [facility] in [place] 2Admin Note: flulaval vis given vis date 05/05/2012 3Admin Note: VIS GIVEN VIS DATE 11/27/2011 4Result Comment: received 2nd dose at [facility] [place] 5Result Comment: received at [facility] [place] Medications acetaminophen 500 mg oral tablet 2 tablet, By Mouth, Every 8 hours, PRN NEEDED FOR PAIN, # 100 tablet, 3 Refills, Maintenance, 12/02/24 5:10:00 PM EST, [facility], cm, 12/02/24 16:39:00 EST, Height, 108.1, kg,10/16/24 8:53:00 EST, Dry Weight Start Date: 12/02/24 Status: Ordered Quantity: 100.0 Unit: tablet Repeat number: 4 Ajovy Autoinjector 225 mg/1.5 mL subcutaneous solution = 225 mg, Subcutaneous Injection, Every 28 days, # 1 kit, 5 Refills, Maintenance, 08/10/24 9:30:00 AM EDT, [facility], Partial fill upon patient [...] 5:29:00 PM EDT, Route to Pharmacy Electronically, [facility]/pharmacy #[id number], Partial fill upon patient request [...] 9:24:00 AM EST, Route to Pharmacy Electronically, [facility] #[id number], 173, cm, 10/16/24 8:53:00 EST, Height, 108.1, kg, 10/16/24 8:53:00 EST, Dry Weight Start Date: 10/16/24 Status: Ordered Quantity: 90.0 Unit: tablet Repeat number: 1 ammonium lactate 5% topical lotion 1 application, Topically, 2 times a day, PRN Dry Skin, apply and rub in well, # 120 Gm, 0 Refills, Maintenance, 12/05/22 5:09:00 PM EST, Lotion, [facility]/pharmacy #[id number], Partial fill upon patient request [...] 0 Refills, Maintenance, 10/20/24 11:40:00 AM EST, [id number], 173, cm, 10/16/24 8:53:00 EST, Height, 108.1, kg, 10/16/24 8:53:00 EST, Dry Weight Start Date: 10/20/24 Status: Ordered Quantity: 90.0 Unit: tablet Repeat number: 1 atorvastatin 80 mg oral tablet = 80 mg, By Mouth, Daily at bedtime, # 90 capsule, 3 Refills, Maintenance, 11/02/24 1:22:00 PM EST,Tablet, [facility]/pharmacy #[id number], Partial fill upon patient request [...] 5 Refills, Maintenance, 11/02/24 1:23:00 PM EST, [facility]/pharmacy #[id number], 173, cm, 11/02/24 13:12:00 EST, Height, [...] 2 Refills, Maintenance, 10/21/24 9:00:00 AM EST, [id number], 25, APPLY TOPICALLY 4 TIMES A DAY, [...] 12:56:00 PM EDT, Route to Pharmacy Electronically, [id number], 165, cm, 02/06/24 9:54:00 EDT, Height, 100, kg, 04/04/23 16:15:00 EDT, Dry Weight Start Date: 02/24/24 Status: Ordered Quantity: 180.0 Unit: tablet Repeat number: 1 lidocaine 5% topical film 1 patch, Topically, Daily, PRN NEEDED FOR PAIN MILD, REMOVE AFTER 12 HOURS, # 30 patch, 0 Refills, Maintenance, 02/05/23 11:52:00 PM EDT, [facility], 30, APPLY 1 PATCH TOPICALLY DAILY,X30 DAYS [...] 2:48:00 PM EST, Route to Pharmacy Electronically, [facility], 165.1, cm, 12/05/22 15:21:00 EST, Height Start Date: 12/31/22 Stop Date: 01/30/23 Status: Ordered Quantity: 60.0 Unit: tablet Repeat number: 1 losartan 50 mg oral tablet 1 tablet, By Mouth, Daily, # 90 tablet, 1 Refills, Maintenance, 09/16/24 10:17:00 AM EST, [facility]/pharmacy #[id number], 173, cm, 08/19/24 12:16:00 EDT, Height, 101.4, kg, 04/27/24 14:38:00 EDT, Dry Weight Start Date: 09/16/24 Status: Ordered Quantity: 90.0 Unit: tablet Repeat number: 2 meclizine 25 mg oral tablet 1 tablet, By Mouth, 2 times a day, PRN NEEDED FOR DIZZINESS, # 60 tablet, 1 Refills, Maintenance, 11/11/24 12:20:00 PM EST, [id number], 173, cm, 11/02/24 13:28:00 EST, Height, 108.1, kg, 10/16/24 8:53:00 EST, Dry Weight Start Date: 11/11/24 Status: Ordered Quantity: 60.0 Unit: tablet Repeat number: 1 Myrbetriq 50 mg oral tablet, extended release 1 tablet, By Mouth, Daily, DO NOT CRUSH OR CHEW., # 30 tablet, 2 Refills, Maintenance, 11/09/24 11:02:00 AM EST, [facility]/pharmacy #[id number], 173, cm, 11/02/24 13:28:00 EST, Height, 108.1, kg, 10/16/24 8:53:00 EST, Dry Weight Start Date: 11/09/24 Status: Ordered Quantity: 30.0 Unit: tablet Repeat number: 3 Myrbetriq 50 mg oral tablet, extended release 1 tablet, By Mouth, Daily, DO NOT CRUSH OR CHEW., # 30 tablet, 11 Refills, Maintenance, 11/13/24 12:20:00 PM EST, [facility], 173, cm, 11/02/24 13:28:00 EST, Height, 108.1, kg, 10/16/24 8:53:00 EST, Dry Weight Start Date: 11/13/24 Status: Ordered Quantity: 30.0 Unit: tablet Repeat number: 12 naratriptan 2.5 mg oral tablet 1 tablet, By Mouth, Daily, PRN NEEDED FOR MIGRAINE, MAY REPEAT DOSE AFTER 4 HOURS IF NEEDED, # 18 tablet, 2 Refills, Maintenance, 10/13/24 5:11:00 PM EST, [id number], 173, cm, 09/29/24 10:23:00 EST, Height, 101.4, [...] AM EDT, 08/10/24 11:26:00 AM EDT, Patch, [facility]/pharmacy #[id number], Partial fill upon patient request [...] 0 Refills, Maintenance, 09/23/23 10:53:00 AM EST, [id number], 165, cm, 09/12/23 13:12:00 EST, Height, 100, kg, 04/04/23 16:15:00 EDT, Dry Weight Start Date: 09/23/23 Status: Ordered Quantity: 30.0 Unit: tablet Repeat number: 1 pantoprazole 20 mg oral delayed release tablet = 20 mg, By Mouth, Daily, Take for next 12 months while taking aspirin and Brillinta. Refill per PCP or Rejoiner., # 90 tablet, 3 Refills, Maintenance, 11/02/24 [...] capsule, 0 Refills, Maintenance, 10/16/24 9:25:00AM EST, [id number], dose reduced to 150mg bid 08/17/24., 173, [...] 3 Refills, Maintenance, 12/08/24 2:34:00 PM EST, [facility], 173, cm, 12/02/24 16:39:00 EST, Height, 108.1, [...] x per day BRand name covered by [facility], # 1 each, Refills 11, Tot. Refills 11, Maintenance, 10/11/23 11:50:00 AM EST, Instructions Replace Required Details Aerosol, Route to Pharmacy Electronically, [id number], [facility]/pharmacy #[id number], brand name is covered by [facility], 165, cm, 09/27/23 10:21:00 EST, Height, 100, kg, 04/04/23 16:15:00 EDT, Dry Weight Start Date: 10/11/23 Status: Ordered Quantity: 1.0 Unit: each Repeat number: 12 Ventolin HFA 108 mcg/inh inhalation aerosol with adapter 2 puffs, Inhalation, Every 6 hours, PRN NEEDED FOR WHEEZE OR FOR SHORTNESS OF BREATH, # 18 each,5 Refills, Maintenance, 11/27/24 4:28:00 PM EST, [facility], 173, cm, 11/02/24 13:28:00 EST, Height, 108.1, kg, 10/16/24 8:53:00 EST, Dry Weight Start Date: 11/27/24 Status: Ordered Quantity: 18.0 Unit: each Repeat number: 6 Vitamin B-12 1000 mcg oral tablet See Instructions, TAKE 1 TABLET BY MOUTH EVERY DAY, # 90 tablet, Refills 0, Maintenance, 12/04/24 1:50:00 PM EST, Instructions Replace Required Details, Route to Pharmacy Electronically, [facility], 173, cm, 12/02/24 16:39:00 EST, Height, [...] 0 Refills, Maintenance, 08/26/24 11:05:00 AM EDT, [id number], Partial fill upon patient request if the [...] Refills, Maintenance, 10/30/24 3:09:00 PM EST, Solution, [facility]., patient going to d/c mikki, 173, cm, 10/16/24 8:53:00 EST, Height, 108.1, kg, 10/16/24 8:53:00 EST, Dry Weight Start Date: 10/30/24 Status: Ordered Quantity: 4.0 Unit: each Repeat number: 1 Zepbound 5 mg/0.5 mL subcutaneous solution = 5 mg, Subcutaneous Injection, Every week, rotate injection sites, # 4 each, 1 Refills, Maintenance, 11/02/24 1:19:00 PM EST, Solution, [facility]., Partial fill upon patient request if the [...] 2 Refills, Maintenance, 12/02/24 5:08:00 PM EST, [facility] dose increase to 7.5mg 12/02/24, 173, cm, [...] Active 1Follows with therapist and psychiatrist at [place] per previous notes 2PFTs show no obstruction. However has h/o asthma. Ct chest in 07/27 and pulm note says restrictive lung disease mild similiar to findings on PFT 3Follows with therapist and psychiatrist at [place] per previous notes 4Sleep study in 2016. [...] Team Personnel Name: Terrence Pa RN Position: [facility] RN Member Role: Primary Care Nurse Name: Broderick Kidd MD Position: [facility] Resident Member Role: PCP Address: [address] [place] [address] [place], [place] [address] Telecom: Care Team Related Persons Name: MARIO GERARD Name: CARI GARCÍA Name: NOELLE MAY Insurance Providers Guarantor name: TAYLORMerari SALAZAR [facility] Plan Information #: 1 Payer: [facility] Member Number: NA Policy Number: NA Group Number: NA
--- OUTSIDE RECORDS SUMMARY | 2024-12-29 14:38 | XMS_ITS | Encounter Summary ---
Author Organization charity: [facility] Address [address] [place] [address] [address] [place] [address] Care Team Providers Care Cooler Conveyor Loader Name Role Phone Unavailable Primary Care Provider Unavailabl e Reason for Visit * Reason Comments Med Refill Encounter Details Date Type Department Care Team (Late st Contact Info) Description 06/23/2024 Refill [facility] [address], [place] [id number] Pop Oneil DDS [address], [place] [id number] Social History Tobacco Use Types Packs/Day Years Used Date Smoking Tobacco: Every Day Cigarettes Smokeless Tobacco: Never Alcohol Use Standard Drinks/Week Comments Defer 0 (1 standard drink = 0.6 oz pur e alcohol) Comments Unknown Sex and Gender Information Value Date Recorded Sex Assigned at Female 09/03/2022 10:20 AM EDT Legal Sex Female 10:20 AM EDT Gender Identity Female 09/03/2022 10:20 AM EDT Sexual Orientation Straight 09/03/2022 10 :20 AM EDT documented as of this encounter Miscellaneous Notes * Telephone Encounter - Beau Gregory DMD - 06/25/2024 8:32 AM EDT Pt need to see a dentist prior to have pain medication documented in this encounter Plan of Treatment Not on file documented as of this encounter Visit Diagnoses Not on filedocumented in this encounter
[2024-12-30 13:53] LABS: Complement C3 127 mg/dL (83-193)
[2024-12-30 22:49] LABS: Anti DNA DS Antibody 3 IU/mL
== END 2024-12-29 11:59 | disposition home or self-care (01) ==
LOC: HO.LAB 11:58
PROVIDERS: PCP Student in an Organized Health Care Education/Training Program; Visit Provider Student in an Organized Health Care Education/Training Program
DX: M32.9 Systemic lupus erythematosus, unspecified (principal)
CPT/HCPCS: 36415; 80053; 81001; 82570; 84156; 85025; 85652; 86140; 86160; 86225

== ENCOUNTER 2025-01-06 12:44 | Outpatient (REF) | payer OTHER, SELFPAY ==
[2025-01-06 15:42] LABS: Appearance Urine Clear; Color Urine Dark Yellow
[2025-01-06 15:43] LABS: Glucose Urine UA Negative (Negative); Leukocyte Esterase Urine Negative (Negative); Nitrite Urine Negative (Negative); Specific Gravity - Urine <= 1.005 (1.005-1.025); UMIC TRIGGER UA YES; Urine Blood Small (1+) (Negative); Urine Ketones Negative (Negative); Urine Protein Negative (Neg-Trace)
[2025-01-06 15:47] LABS: Bacteria Urine 1+ (None Seen); Hyaline Casts Urine 0-2 /LPF (0-2); WBC Urine 0-5 /HPF (0-5)
--- OUTSIDE RECORDS SUMMARY | 2025-01-06 16:41 | XMS_ITS | Clinical Summary ---
Demographics Address [address] [facility] [address] [place] [address] Work Phone Home Phone Mobile Phone Preferred Language es Marital Status Single Church Affiliation Unknown Race Other Race Ethnic Group or Author Organization [facility] Address [address] [facility] [address] [place] [address] Care Team Providers Care Residential Collections Name Role Phone Unavailable Primary Care Provider [...] Sod Fluoride-Potassiu m Nitrate 1.1-5 % paste [place] teeth for 2 minutes, morning and night. [...] Procedure Name Priority Date/Time Associated Diagnosis Comments URINALYSIS, COMPLETE Routine 01/06/2025 2:00 PM EST DNA (DS) ANTIBODY Routine 12/29/2024 12: 17 [...] EST) Anti DNA DS Antibody 3 IU/mL [facility] Comment:IU/mL Interpretation < or = 4 Negative 5-9 Indeterminate > or = 10 PositiveTHIS TEST WAS PERFORMED AT:[facility] [place] [id number] PAREDES MD 12/29/2024 12:1 7 PM EST 12/29/2024 12:17 PM EST Generic External Data Provider LAB BLOOD ORDERAB LES Final Result [facility] [address] [place] [phone] * Complement Component C3c (12/29/2024 12:17 PM EST) Complement C3 127 83 - 193 mg/dL [facility] Comment:THIS TEST WAS PERFOR MED AT:[facility] [place] [id number] PAREDES MD 12/29/2024 12:1 7 PM EST 12/29/2024 12:17 PM EST us Generic External Data Provider LAB BLOOD ORDERAB LES Final Result Performing Organization Address [facility]/ZIP Co de Phone Number [facility] [address] [place] [phone] * Complement Component C4c (12/29/2024 12:17 PM EST) Complement C4 28 15 - 57 mg/dL [facility] Comment:THIS TEST WAS PERFOR MED AT:[facility] [place] [id number] PAREDES MD 12/29/2024 12:1 7 PM EST 12/29/2024 12:17 PM EST Generic External Data Provider LAB BLOOD ORDERAB LES Final Result Performing Organization Address [facility] Phone Number [facility] [address] [place] [phone] * Protein Creatinine Ratio, Urine (12/29/2024 12:09 PM EST) Creatinine, Urine 186.84 mg/dL [facility] Protein, Total, Random Urine 12 <12 mg/dL [facility] Protein/Creati nine Ratio, Ur 0.06 <0.2 [facility] Comment:The spot urine prote in:creatinine ratio may increase to 0.3during normal . 12/29/2024 12:0 9 PM EST 12/29/2024 12:29 PM EST Generic External Data Provider LAB URINE ORDERAB LES Final Result Performing Organization Address [facility] Co de Phone Number [facility] [address] [place] [phone] from Last 3 Months Insurance * Guarantor: Marilyn Wells I Account Type Relation to Patient Date of Phone Billing Address Personal/Family Self [address] [place] [address] [facility] * Guarantor: Marilyn Wells I Account Type Relation to Patient Date of Phone Billing Address Dental Self 1975 [address] [place] [address] [facility] STAND ADULT * Guarantor: Marilyn Wells I Account Type Relation to Patient Date of Phone Billing Address Personal/Family Self [address] [place] [address] * Guarantor: Marilyn Wells I Account Type Relation to Patient Date of Phone Billing Address Personal/Family Self [address] [place] [address] * Guarantor: Marilyn Wells I Account Type Relation to Patient Date of Phone Billing Address Personal/Family Self [address] [place] [address]
--- OUTSIDE RECORDS SUMMARY | 2025-01-06 16:41 | XMS_ITS | Encounter Summary ---
Author Organization [facility] [facility] [employer] [facility] Address [address] [place] [address] 7t [place] [address] Care Team Providers Care Retail Brand Ambassador Name Role Phone Unavailable Primary Care Provider Unavailabl e Reason for Visit * Reason Comments Med Refill Encounter Details Date Type Department Care Team (Late st Contact Info) Description 06/23/2024 Refill [facility] [address] [place], [place] [phone] Pop Oneil DDS [address] [place], [place] [phone] Social History Tobacco Use Types Packs/Day Years [...]
== END 2025-01-06 12:45 | disposition home or self-care (01) ==
LOC: HO.LAB 12:44
PROVIDERS: PCP Student in an Organized Health Care Education/Training Program; Visit Provider Student in an Organized Health Care Education/Training Program
DX: N30.90 Cystitis, unspecified without hematuria (principal)
CPT/HCPCS: 81001; 87086

== ENCOUNTER 2025-01-06 12:44 | Outpatient (AMB) | payer OTHER, SELFPAY ==
--- NOTE | 2025-01-06 13:01 | A.OFFVIS_ITS ---
Vital Signs 01/06/25 13:07 Height 5 ft 6 in Weight 233 lb 3.985 oz BMI 37.6 BP 130/74 Blood Pressure Location Lt brachial Position Sitting Pulse 92 Pulse Source Pulse Oximeter Pulse Oximetry (%) 99 Oxygen Delivery Method Room Air Intake Visit Reasons: SLE Intake Note: Patient presents for SLE. Allergies No Known Allergies Allergy (Verified 01/06/25 13:07) Medication List - Last Reconciled 01/06/25 by Archana Donald MD acetaminophen 1,000 mg PO Q8H PRN albuterol sulfate 2.5 mg inhalation Q6H PRN albuterol sulfate 90 mcg/actuation (Ventolin HFA) 2 puffs inhalation Q6H PRN amitriptyline 10 mg PO BEDTIME arm brace (DAMON Elbow Brace) as directed aspirin 81 mg PO DAILY atorvastatin 80 mg PO DAILY betamethasone dipropionate 0.05% 1 appl topical BID PRN budesonide-formoterol 80-4.5 mcg/actuation (Symbicort) 1 puff inhalation BID PRN cetirizine 10 mg PO DAILY@1500 ciclopirox 1% 1 ea topical Q7D PRN clobetasol 0.05% 1 appl topical BID clonazepam 1 mg PO TID PRN clonidine HCl 0.1 mg PO 3XD PRN CPAP As directed cyanocobalamin (vitamin B-12) (Vitamin B-12) 1,000 mcg PO DAILY cyclobenzaprine 5 - 10 mg (1 - 2 x 5 mg) PO BEDTIME diclofenac sodium 1% 1 g topical QID PRN duloxetine 30 mg PO DAILY famotidine 20 mg PO BID fexofenadine 180 mg PO DAILY fluocinonide 0.05% 1 appl topical BID PRN fremanezumab-vfrm (Ajovy) 225 mg subcut QMONTH hydrochlorothiazide 25 mg PO DAILY hydrocortisone 2.5% 1 appl topical DAILY PRN hydroxychloroquine 200 mg PO BID loratadine 10 mg PO DAILY losartan 50 mg PO DAILY meclizine 25 mg PO TID PRN mirabegron ER (Myrbetriq) 50 mg PO DAILY montelukast 10 mg PO QPM naratriptan 2.5 mg PO DAILY PRN neomycin-polymyxin B-dexameth 3.5mg/mL-10,000 unit/mL-0.1 % 1 drp ophthalmic (eye) QID nicotine 1 patch topical DAILY nitroglycerin 0.4 mg sublingual Q5M omeprazole 20 mg PO DAILY ondansetron HCl 8 mg PO TID PRN pantoprazole 20 mg PO DAILY pilocarpine HCl 5 mg PO BID PRN pregabalin 200 mg PO BID riboflavin (vitamin B2) 400 mg PO DAILY risperidone 2 mg PO BEDTIME rizatriptan 10 mg PO DAILY PRN sodium fluoride-pot nitrate 1.1-5 % 1 appl PO BID ticagrelor (Brilinta) 90 mg PO BID varicella-zoster [id number] (PF) 50 mcg/0.5 mL (Shingrix (PF)) 50 mcg intramuscularly 2 doses (at 0 & 2 months) HPI Comments Details: Patient is a 49-year-old female morbidly obese with hypertension complicated by coronary artery disease, asthma, polyarticular osteoarthritis and lupus here today for follow up Interval History: Patient last seen 09/07/[address] Fung. At that time she was on hydroxychloroquine 200 mg twice a day. She is also receiving monthly infusions of saphenous low. She reported about 75% improvement in her overall aches, pains and fatigue and the rashes on her back have resolved. 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 Patient used to follow-up with Dr. Pineda. She was unable to get an appointment with dr. Marquez at his new practice. She states that she was diagnosed with SLE around 17 years ago when she developed a butterfly rash and diffuse joint pain. She stated that she was treated with prednisone consistently at 5 mg daily for about 8 years. She was also started on hydroxychloroquine. She has been on hydroxychloroquine since her diagnosis. She states that she took methotrexate for 2 months about 7 years ago and according to patient she lost her smell and taste afterwards. He was told that this was likely a side effect of methotrexate. It did not recover whe n methotrexate was discontinued. Five years ago she was on Benlysta infusions for about 8 months. She stated that was helping reduce the frequency of her flare-ups, but eventually it became ineffective. Per patient 5 years ago patient presented to the hospital with right lower extremity DVT. According to patient she was on blood thinners for some time. States that she has been wearing compression stockings for about 10 years. Patient was recently evaluated by a hog room supervisor for respiratory bronchiolitis versus extrinsic allergic alveolitis and was started on prednisone 40 mg daily a month ago with improvement of her joint pain. Current Rheumatology Medication(s): Saphnelo 300mg IV every 4 weeks Plaquenil 200mg bid daily PFSH Medical History Non-ST elevated myocardial infarction (non-STEMI) CAD (coronary artery disease) Smoker Dvt femoral (deep venous thrombosis) Gout GERD (gastroesophageal reflux disease) Vertigo Asthma Migraine Anxiety and depression Fibromyalgia Neuropathy H/O Sjogren's disease Discoid lupus Lupus Surgical History S/P cardiac catheterization Hx of hysterectomy Hx of thumb surgery Hx of knee surgery Family History Other Arthritis Lupus Social History Household Members: Family Housing: Apartment Do you presently have visiting nurse or other home services: No Alcohol intake: former Patient Tobacco Use Status: Current everyday Tobacco user Tobacco use type: Cigarette Cigarette Packs Per Day: 0.5 Cigarettes Per Day: 10.0 service: No Current occupational status: unemployed Review of Systems Const Details: Review of Systems Constitutional: Denies fever, chills, weight loss ENT: Denies vision changes, eye pain or eye redness, dental caries, dry mouth GI: Denies nausea, vomiting, diarrhea, abdominal pain, change in BM Pulm: Denies SOB, SINHA, hemoptysis, wheezing Cards: Denies chest pain, palpitations Skin: Denies Raynaud's, rash, nail changes, photosensitivity, BIODIESEL TECHNOLOGY MANAGER: Denies headaches, weakness, paresthesias, recurrent falls MSK: as per HPI All other systems reviewed and are unremarkable except noted above Physical Exam Vital Signs: Last Vital Signs Pulse 92 01/06/25 13:07 BP 130/74 01/06/25 13:07 Pulse Ox 99 01/06/25 13:07 Oxygen Delivery Method Room Air 01/06/25 13:07 BMI result Body Mass Index 37.6 Vital signs reviewed Physical Examination CONSTITUITIONAL Patient alert and cooperative. Well appearing and in no apparent painful distress HEENT Conjunctiva and sclera clear. ?Pupils equal round and reactive to light. ?No lymphadenopathy. ? CHEST/RESPIRATORY SYSTEM Normal respiratory effort and able to speak in complete sentences. ?Clear to auscultation bilaterally. ?No crackles, rales, rhonchi, wheezes heard. CARDIAC SYSTEM Regular rate and rhythm. ?S1 and S2 heard no murmurs. 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 No deformities noted. ?No synovitis noted to the MCPs, PIPs or DIPs. ?No tenderness to palpation of these joints. Wrists: ?Full range of motion at the wrists without pain. ?No tenderness to palpation or synovitis noted to the wrists. Elbows: Full range of motion without pain. No tenderness, weakness, swelling, increased warmth or erythema. Shoulders: Full range of motion without pain. No tenderness, weakness, swelling, increased warmth or erythema. Hips: Full range of motion without pain. Hip bursa: No tenderness to palpation Knees: ?Full range of motion. ?Tenderness to palpation of the medial knee joint line of the right knee. Pain with extremes of range of motion to the right knee. Left knee crepitations felt full range of motion. Ankles: Full range of motion. ?No tenderness, swelling, increased warmth or erythema.? Feet: ?Negative squeeze test. ?No tenderness to palpation or swelling of the MTPs. Tender points:?No tenderness to palpation of the bilateral trapezius, supraspinatus, greater trochanters, anterior costochondral junctions, bilateral gluteal areas, bilateral suboccipital muscle insertions SKIN Faint malar rash noted over face Normal nail fold capillaries Office Procedures AMB Joint Injection/Aspiration Joint Injection/Aspiration Details: Procedure was explained to the patient and consent was obtained. ? The area of interest was identified and confirmed with patient. ?This was subsequently cleaned with chlorhexidine x3. ? The area was then anesthetized using ethyl chloride spray. 40 mg Kenalog with 1 cc 1% lidocaine was injected without issue. ?Minimal to no bleeding. ?Patient tolerated procedure. Primary Site: right knee Prep: site was prepped using aseptic technique and ethochloride spray was applied Injected: 40 mg of, Kenalog, with 1 mL of and in the joint Approach Used: anteromedial Procedure: The patient tolerated the procedure well Coding 97406 - Large joint Procedure code (CPT) selection complete Office Meds lidocaine (PF) 10 mg/mL (1 %) injection solution Performing Provider: Archana Donald MD [place] [facility] [place] [facility] Administered by: Archana Donald MD on 01/06/25 14:08 Dose Route Admin Location Dispensed Lot Number Expiration Date [facility] Forms [employer] 1 mL Infiltration right knee 2 mL [id number] 02/02/27 33764-704-19 [facility] Kenalog 40 mg/mL suspension for injection Performing Provider: Archana Donald MD Performing Location: [facility] [place] [facility] Administered by: Archana Donald MD on 01/06/25 14:08 Dose Route Admin Location Dispensed Lot Number Expiration Date [facility] [employer] 40 mg intra-articular 1 mL [id number] 05/04/26 [address]-4 [employer] Results Reviewed Results Reviewed: Laboratory Tests 08/26/24 12/29/24 12:07 12:17 WBC 9.4 RBC 4.02 L Hgb 11.6 L Hct 34.4 L Plt Count 322 ESR 27 H Sodium 136 Potassium 3.9 Chloride 105 Carbon Dioxide 25 BUN 7 L Creatinine 0.71 AST 15 ALT 17 Alkaline Phosphatase 83 C-Reactive Protein 1.77 H 0.90 H Laboratory Tests 12/29/24 12:09 Urine Color Yellow Urine Appearance Cloudy Urine pH 6.0 Ur Specific [place] 1.020 Urine Protein 30 (1+) H Urine Glucose (UA) Negative Urine Ketones Trace Urine Blood Moderate (2+) H Urine RBC 11-20 H U Random Total Protein 12 Protein/Creatinin Ratio 0.06 Laboratory Tests 12/29/24 12:17 Double Strand DNA Ab 3 Complement C3 127 Complement C4 28 Assessment & Plan Assessment & Plan (1) Lupus: Comment: dx around 2006 (arthralgias, rashes, +++SSa +++Cm +++MECHANIC CHIEF) HCQ throughout Methotrexate could not be tolerated Benlysta lost effectiveness after 8 months Saphnelo added 06/2024 effective Code(s): M32.9 - Systemic lupus erythematosus, unspecified Category: Medical Plan: #SLE Patient is a 49-year-old female with SLE currently in remission. Plan - Saphnelo 300mg IV every 4 weeks - Plaquenil 200mg bid daily - RTC 4 months - Labs before visit: CBC, CMP, ESR, CRP, C3, C4, dsDNA, UA, UPC (2) Internal derangement of right knee: Code(s): M23.91 - Unspecified internal derangement of right knee Category: Medical Plan: #Right knee pain Patient with right knee pain after fall. Has a history of small meniscal tear in the right knee. Concern for worsening injury Given a steroid injection today to help with the pain. 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) drug therapy Category: Medical Plan: #Long-term Use of Hydroxychloroquine Discussed with patient the risks and benefits of hydroxychloroquine in managing the rheumatic condition Benefits include: - Reduced pain, reduce mortality, maintenance of remission and reduction of flares Risks include: - GI upset, skin hyperpigmentation, retinal toxicity (especially after more than 5 years of use), myopathy Advised yearly ophthalmology visits (4) High risk medication use: Code(s): Z79.899 - Other watermelon harvesting supervisor (current) drug therapy Category: Medical Plan: #Long-term use Anifrolumab Discussed with patient the risks and benefits of hydroxychloroquine in managing the rheumatic condition Benefits include: - Reduced pain, reduce mortality, maintenance of remission and reduction of flares Risks include: - Increased susceptibility to serious infections particularly viral infections like herpes zoster (shingles), respiratory tract infections and infusion related reactions Plan I spent 35 minutes reviewing the record and labs, taking a history, examining the patient, discussing the treatment plan and documenting in the medical record Orders: Orders Complement C4 4 Months M32.9 - Systemic lupus erythematosus, unspecified Complete Blood Count Auto Diff 4 Months M32.9 - Systemic lupus erythematosus, unspecified Comprehensive Met. Panel 4 Months M32.9 - Systemic lupus erythematosus, unspecified Protein Electrophoresis,Ran Ur 4 Months M32.9 - Systemic lupus erythematosus, unspecified UA w Microscopic 4 Months M32.9 - Systemic lupus erythematosus, unspecified UA w Microscopic Today N30.90 - Cystitis, unspecified without hematuria AMB Joint Injection/Aspiration Today M23.91 - Unspecified internal derangement of right knee, M25.561 - Pain in right knee MR knee RT wo con Today M25.561 - Pain in right knee, S83.206A - Unspecified tear of unspecified meniscus, current injury, right knee, initial encounter, W19.XXXA - Unspecified fall, initial encounter Complement C3 4 Months M32.9 - Systemic lupus erythematosus, unspecified C Reactive Protein 4 Months M32.9 - Systemic lupus erythematosus, unspecified Erythrocyte Sedimentation Rate 4 Months M32.9 - Systemic lupus erythematosus, unspecified Hepatitis A,B,C Profile 4 Months M32.9 - Systemic lupus erythematosus, unspecified T Spot TB 4 Months M32.9 - Systemic lupus erythematosus, unspecified Urine Culture Today N30.90 - Cystitis, unspecified without hematuria Medications: New Kenalog (triamcinolone acetonide) 40 mg intra-articular ONCE 1 mL 0RF NS M23.91 - Unspecified internal derangement of right knee, M25.561 - Pain in right knee lidocaine (PF) 1 mL Infiltration ONCE 2 mL 0RF M23.91 - Unspecified internal derangement of right knee, M25.561 - Pain in right knee Refilled hydroxychloroquine 200 mg PO BID 180 tabs 1RF cyclobenzaprine 5 - 10 mg (1 - 2 x 5 mg) PO BEDTIME 30 tabs 4RF for muscle spasm M62.838 - Other muscle spasm Coding Level of Care Code Est Pt Level 4 (70263) Complex EM visit Add On G2211 Diagnoses Lupus M32.9 Internal derangement of right knee M23.91 Long-term use of hydroxychloroquine Z79.899 High risk medication use Z79.899 CPT Codes Coding - 60786 Large joint: 78933 - Large joint ([id number])
[2025-01-06 13:07] VITALS: BP 130/74; PULSE 92; O2SAT 99; BMI 37.6
--- OUTSIDE RECORDS SUMMARY | 2025-01-06 15:03 | XMS_ITS | Encounter Summary ---
Author Organization [facility] Address [address] [place] [address] [address] [place] [address] Care Team Providers Care Supervisor Dental Laboratory Name Role Phone Unavailable Primary Care Provider Unavailabl e Reason for Visit * Reason Comments Med Refill Encounter Details Date Type Department Care Team (Late st Contact Info) Description 06/23/2024 Refill [facility] ADULT DENT[facility] [address], [place] [phone] Pop Oneil DDS [address], [place] [phone] Social History Tobacco Use Types Packs/Day Years [...]
--- OUTSIDE RECORDS SUMMARY | 2025-01-06 15:04 | XMS_ITS | Clinical Summary ---
Demographics Address [address] [facility] [address] [place] [address] Work Phone Home Phone Mobile Phone Preferred Language es Marital Status Single Scientology Affiliation Unknown Race Other Race Ethnic Group or Author Organization [employer] [facility] Address [address] [facility] [address] [place] [address] Care Team Providers Care Daycare Worker Name Role Phone Unavailable Primary Care Provider [...] Sod Fluoride-[place]ass[place] m Nitrate 1.1-5 % paste [place] teeth for 2 minutes, morning and night. [...] Procedure Name Priority Date/Time Associated Diagnosis Comments DNA (DS) ANTIBODY Routine 12/29/2024 12: 17 PM EST COMPLEMENT COMPONENT C4C Routine 12/29/2024 12:17 PM EST COMPLEMENT COMPONENT C3C Routine 12/29/2024 12:17 PM EST PROTEIN CREATININE RATIO, URINE Routine 12/29/2024 12:09 [...] Recently Relevant to Health Maintenance Results * DNA (ds) Antibody (12/29/2024 12:17 PM EST) Anti DNA DS Antibody 3 IU/mL [facility] Comment:IU/mL Interpretation < or = 4 Negative 5-9 Indeterminate > or = 10 PositiveTHIS TEST WAS PERFORMED AT:[employer] [place] [phone] PAREDES MD 12/29/2024 12:1 7 PM EST 12/29/2024 12:17 PM EST us Generic External Data Provider LAB BLOOD ORDERAB LES Final Result [facility] [address] [place] [phone] * Complement Component C3c (12/29/2024 12:17 PM EST) Complement C3 127 83 - 193 mg/dL [facility] Comment:THIS TEST WAS PERFOR MED AT:[employer] [place] [phone] PAREDES MD 12/29/2024 12:1 7 PM EST 12/29/2024 12:17 PM EST Generic External Data Provider LAB BLOOD ORDERAB LES Final Result Performing Organization Address [facility] Co de Phone Number [facility] [address] [place] [address] [phone] * Complement Component C4c (12/29/2024 12:17 PM EST) Complement C4 28 15 - 57 mg/dL [facility] Comment:THIS TEST WAS PERFOR MED AT:[employer] [place] [phone] PAREDES MD 12/29/2024 12:1 7 PM EST 12/29/2024 12:17 PM EST Generic External Data Provider LAB BLOOD ORDERAB LES Final Result Performing Organization Address [facility] de Phone Number [facility] [address] [place] [phone] * Protein Creatinine Ratio, Urine (12/29/2024 12:09 PM EST) Creatinine, Urine 186.84 mg/dL [facility] Protein, Total, Random Urine 12 <12 mg/dL [facility] Protein/Creati nine Ratio, Ur 0.06 <0.2 [facility] Comment:The spot urine prote in:creatinine ratio may increase to 0.3during normal . 12/29/2024 12:0 9 PM EST 12/29/2024 12:29 PM EST Generic External Data Provider LAB URINE ORDERAB LES Final Result Performing Organization Address [facility] Co de Phone Number [facility] [address] [place] [phone] from Last 3 Months Insurance * Guarantor: Marilyn Wells I Account Type Relation to Patient Date of Phone Billing Address Personal/Family Self [address] [place] [address] [facility] STANDARD * Guarantor: Marilyn Wells I Account Type Relation to Patient Date of Phone Billing Address Dental Self [address] [place] [address] [facility] MEDICAID STAND ADULT * Guarantor: Marilyn Wells I Account Type Relation to Patient Date of Phone Billing Address Personal/Family Self [address] [place] [address]
--- OUTSIDE RECORDS SUMMARY | 2025-01-06 15:04 | XMS_ITS | Continuity of Care Document ---
Author Organization [facility] Address [address], [address], [address] [place] [address]- Care Team Providers Care Digital Solutions Architect Name Role Phone Broderick Kidd MD [id number] Date(s): 12/04/24 - 01/03/25 [facility] [address], [address] [place] [phone]- Encounter Type: Triage Allergies, Adverse Reactions, Alerts [...] 04/25/23 Given tetanus/diphtheria/pertussis, acel(Tdap) 3 01/28/13 Given [id number] bivalent booster vax 01/03/23 Recorded SARS-CoV-2 (COVID-19) [...] Recor ded 1Result Comment: received at [facility] [place] 2Admin Note: flulaval vis given vis date 05/05/2012 3Admin Note: VIS GIVEN VIS DATE 11/27/2011 4Result Comment: received 2nd dose at [facility] 5Result Comment: received at [facility] Medications acetaminophen 500 mg oral tablet 2 tablet, By Mouth, Every 8 hours, PRN NEEDED FOR PAIN, # 100 tablet, 3 Refills, Maintenance, 12/02/24 5:10:00 PM EST, [facility], cm, 12/02/24 16:39:00 EST, Height, 108.1, kg,10/16/24 8:53:00 EST, Dry Weight Start Date: 12/02/24 Status: Ordered Quantity: 100.0 Unit: tablet Repeat number: 4 Ajovy Autoinjector 225 mg/1.5 mL subcutaneous solution = 225 mg, Subcutaneous Injection, Every 28 days, # 1 kit, 5 Refills, Maintenance, 08/10/24 9:30:00 AM EDT, [facility], Partial fill upon patient [...] 5:29:00 PM EDT, Route to Pharmacy Electronically, [facility] #[id number], Partial fill upon patient request if [...] 9:24:00 AM EST, Route to Pharmacy Electronically, [id number], 173, cm, 10/16/24 8:53:00 EST, Height, 108.1, kg, 10/16/24 8:53:00 EST, Dry Weight Start Date: 10/16/24 Status: Ordered Quantity: 90.0 Unit: tablet Repeat number: 1 ammonium lactate 5% topical lotion 1 application, Topically, 2 times a day, PRN Dry Skin, apply and rub in well, # 120 Gm, 0 Refills, Maintenance, 12/05/22 5:09:00 PM EST, Lotion, [facility] #[id number], Partial fill upon patient request ifthe [...] 0 Refills, Maintenance, 10/20/24 11:40:00 AM EST, [id number], 173, cm, 10/16/24 8:53:00 EST, Height, 108.1, kg, 10/16/24 8:53:00 EST, Dry Weight Start Date: 10/20/24 Status: Ordered Quantity: 90.0 Unit: tablet Repeat number: 1 atorvastatin 80 mg oral tablet = 80 mg, By Mouth, Daily at bedtime, # 90 capsule, 3 Refills, Maintenance, 11/02/24 1:22:00 PM EST,Tablet, [facility] #[id number], Partial fill upon patient request if [...] 5 Refills, Maintenance, 11/02/24 1:23:00 PM EST, [facility] #[id number], 173, cm, 11/02/24 13:12:00 EST, Height, [...] Date: 10/15/18 Status: Ordered Repeat number: 1 [facility] VITAMIN B-12 500 MCG TAB [facility] VITAMIN [...] 2 Refills, Maintenance, 10/21/24 9:00:00 AM EST, [id number], 25, APPLY TOPICALLY 4 TIMES A DAY, [...] tablet, Refills 1, Tot. Refills 1, Maintenance, 01/01/25 2:26:00 PM EST, Route to Pharmacy Electronically, [facility], 173, cm, 12/02/24 16:39:00 EST, Height, 108.1, kg, 10/16/24 8:53:00 EST, Dry Weight Start Date: 01/01/25 Status: Ordered Quantity: 180.0 Unit: tablet Repeat number: 2 lidocaine 5% topical film 1 patch, Topically, Daily, PRN NEEDED FOR PAIN MILD, REMOVE AFTER 12 HOURS, # 30 patch, 0 Refills, Maintenance, 02/05/23 11:52:00 PM EDT, [id number], 30, APPLY 1 PATCH TOPICALLY DAILY,X30 DAYS [...] 2:48:00 PM EST, Route to Pharmacy Electronically, [facility], 165.1, cm, 12/05/22 15:21:00 EST, Height Start Date: 12/31/22 Stop Date: 01/30/23 Status: Ordered Quantity: 60.0 Unit: tablet Repeat number: 1 losartan 50 mg oral tablet 1 tablet, By Mouth, Daily, # 90 tablet, 1 Refills, Maintenance, 09/16/24 10:17:00 AM EST, [facility] #[id number], 173, cm, 08/19/24 12:16:00 EDT, Height, 101.4, kg, 04/27/24 14:38:00 EDT, Dry Weight Start Date: 09/16/24 Status: Ordered Quantity: 90.0 Unit: tablet Repeat number: 2 meclizine 25 mg oral tablet 1 tablet, By Mouth, 2 times a day, PRN NEEDED FOR DIZZINESS, # 60 tablet, 1 Refills, Maintenance, 11/11/24 12:20:00 PM EST, [id number], 173, cm, 11/02/24 13:28:00 EST, Height, 108.1, kg, 10/16/24 8:53:00 EST, Dry Weight Start Date: 11/11/24 Status: Ordered Quantity: 60.0 Unit: tablet Repeat number: 1 Myrbetriq 50 mg oral tablet, extended release 1 tablet, By Mouth, Daily, DO NOT CRUSH OR CHEW., # 30 tablet, 2 Refills, Maintenance, 11/09/24 11:02:00 AM EST, [facility] #[id number], 173, cm, 11/02/24 13:28:00 EST, Height, 108.1, kg, 10/16/24 8:53:00 EST, Dry Weight Start Date: 11/09/24 Status: Ordered Quantity: 30.0 Unit: tablet Repeat number: 3 Myrbetriq 50 mg oral tablet, extended release 1 tablet, By Mouth, Daily, DO NOT CRUSH OR CHEW., # 30 tablet, 11 Refills, Maintenance, 11/13/24 12:20:00 PM EST, [facility], 173, cm, 11/02/24 13:28:00 EST, Height, 108.1, kg, 10/16/24 8:53:00 EST, Dry Weight Start Date: 11/13/24 Status: Ordered Quantity: 30.0 Unit: tablet Repeat number: 12 naratriptan 2.5 mg oral tablet See Instructions, TAKE 1 TABLET BY MOUTH EVERY DAY NEEDED FOR MIGRAINE, MAY REPEAT DOSE AFTER 4 HOURS NEEDED, # 18 tablet, 2 Refills, Maintenance, 01/01/25 9:12:00 PM EST, [facility], 173, cm, 12/02/24 16:39:00 EST, Height, 108.1, kg, 10/16/24 8:53:00 EST, Dry Weight Start Date: 01/01/25 Status: Ordered Quantity: 18.0 Unit: tablet Repeat number: 1 nicotine 21 mg/24 hr transdermal film, extended release 2 patch, Topically, Daily, for 30 days, Use for at least 3-6 months. Use two patches for total of 42 mg per day., # 60 patch, 5 Refills, Acute 02/06/25 11:26:00 AM EDT, 08/10/24 11:26:00 AM EDT, Patch, [facility] #[id number], Partial fill upon patient request if [...] 0 Refills, Maintenance, 09/23/23 10:53:00 AM EST, [id number], 165, cm, 09/12/23 13:12:00 EST, Height, 100, kg, 04/04/23 16:15:00 EDT, Dry Weight Start Date: 09/23/23 Status: Ordered Quantity: 30.0 Unit: tablet Repeat number: 1 pantoprazole 20 mg oral delayed release tablet = 20 mg, By Mouth, Daily, Take for next 12 months while taking aspirin and Brillinta. Refill per PCP or Day Care Center Director., # 90 tablet, 3 Refills, Maintenance, 11/02/24 [...] capsule, 0 Refills, Maintenance, 10/16/24 9:25:00AM EST, [facility] #[id number], dose reduced to 150mg bid 08/17/24., 173, [...] 3 Refills, Maintenance, 12/08/24 2:34:00 PM EST, [facility], 173, cm, 12/02/24 16:39:00 EST, Height, 108.1, [...] tablet Repeat number: 1 Symbicort 80mcg/4.5mcg Inhaler 1, puffs, Inhalation, 2 times a day, PRN, WHEEZING/SHORTNESS OF BREATH., # 30.6 each, Refills 5, Tot. Refills 5, Maintenance, 12/24/24 11:21:00 AM EST, Route to Pharmacy Electronically, [id number], [facility] #[id number], 173, cm, 12/02/24 16:39:00 EST, Height, 108.1, kg, 10/16/24 8:53:00 EST, Dry Weight Start Date: 12/24/24 Status: Ordered Quantity: 30.6 Unit: each Repeat number: 6 Ventolin HFA 108 mcg/inh inhalation aerosol with adapter 2 puffs, Inhalation, Every 6 hours, PRN NEEDED FOR WHEEZE OR FOR SHORTNESS OF BREATH, # 18 each,5 Refills, Maintenance, 11/27/24 4:28:00 PM EST, [facility], 173, cm, 11/02/24 13:28:00 EST, Height, 108.1, kg, 10/16/24 8:53:00 EST, Dry Weight Start Date: 11/27/24 Status: Ordered Quantity: 18.0 Unit: each Repeat number: 6 Vitamin B-12 1000 mcg oral tablet See Instructions, TAKE 1 TABLET BY MOUTH EVERY DAY, # 90 tablet, Refills 0, Maintenance, 12/04/24 1:50:00 PM EST, Instructions Replace Required Details, Route to Pharmacy Electronically, [facility], 173, cm, 12/02/24 16:39:00 EST, Height, [...] Refills, Maintenance, 08/26/24 11:05:00 AM EDT, [facility][id number], Partial fill upon patient request if the [...] Refills, Maintenance, 10/30/24 3:09:00 PM EST, Solution, [facility], patient going to d/c mikki, 173, cm, 10/16/24 8:53:00 EST, Height, 108.1, kg, 10/16/24 8:53:00 EST, Dry Weight Start Date: 10/30/24 Status: Ordered Quantity: 4.0 Unit: each Repeat number: 1 Zepbound 5 mg/0.5 mL subcutaneous solution = 5 mg, Subcutaneous Injection, Every week, rotate injection sites, # 4 each, 1 Refills, Maintenance, 11/02/24 1:19:00 PM EST, Solution, [facility], Partial fill upon patient request if the [...] 2 Refills, Maintenance, 12/02/24 5:08:00 PM EST, [facility], dose increase to 7.5mg 12/02/24, 173, cm, [...] Active 1Follows with therapist and psychiatrist at [place] per previous notes 2PFTs show no obstruction. However has h/o asthma. Ct chest in 07/27 and pulm note says restrictive lung disease mild similiar to findings on PFT 3Follows with therapist and psychiatrist at [place] per previous notes 4Sleep study in 2016. [...] Care Nurse Name: Broderick Kidd MD Position: [facility] Resident Member Role: PCP Address: [address] [place] [address] [place] [address]- Telecom: Care Team Related Persons Name: MARIO GERARD Name: CARI GARCÍA Name: NOELLE MAY Insurance Providers Guarantor name: TAYLOR SALAZAR Health Plan Information #: 1 Payer: [facility] Member Number: NA Policy Number: NA Group Number: NA
== END 2025-01-06 13:43 | disposition home or self-care (01) ==
PROVIDERS: PCP Student in an Organized Health Care Education/Training Program; Visit Provider Student in an Organized Health Care Education/Training Program
DX: M32.9 Systemic lupus erythematosus, unspecified (principal); M23.91 Unspecified internal derangement of right knee; Z79.899 Other long term (current) drug therapy; M25.561 Pain in right knee
CPT/HCPCS: 20610; 99214

== ENCOUNTER 2025-01-12 13:43 | Outpatient (AMB) | payer OTHER, SELFPAY ==
--- NOTE | 2025-01-12 13:48 | MHC.OFFVIS ---
Vital Signs 01/12/25 13:49 Height 5 ft 6 in Weight 233 lb BMI 37.6 BP 102/62 Blood Pressure Location Rt brachial Position Sitting Pulse 94 Pulse Source Doppler Pulse Oximetry (%) 99 Oxygen Delivery Method Room Air Intake Visit Reasons: Asthma Allergies No Known Allergies Allergy (Verified 01/12/25 13:54) HPI HPI Asthma: Details: 49-year-old lady, former 5 pack-year smoker, with underlying history of lupus on hydroxychloroquine, environmental allergies under radiology interventional physician care, followed for asthma, AIRAM, and possible pulmonary nodules. Patient been treated with a course of prednisone with resolution of her pressors after that she did not follow-up for the last 14 months secondary to other issues with including myocardial infarction. She also was started on CPAP and now his symptoms of sleep apnea well controlled. Patient does complain of a recent asthma exacerbation treated with a brief prednisone pulse with significant improvement, but not complete resolution of her symptoms. Patient was not able to obtain a follow-up CT chest. [facility] Medical History Non-ST elevated myocardial infarction (non-STEMI) CAD (coronary artery disease) Smoker Dvt femoral (deep venous thrombosis) Gout GERD (gastroesophageal reflux disease) Vertigo Asthma Migraine Anxiety and depression Fibromyalgia Neuropathy H/O Sjogren's disease Discoid lupus Lupus Surgical History S/P cardiac catheterization Hx of hysterectomy Hx of thumb surgery Hx of knee surgery Family History Other Arthritis Lupus Social History Household Members: Family Housing: Apartment Do you presently have visiting nurse or other home services: No Alcohol intake: former Patient Tobacco Use Status: Current everyday Tobacco user Tobacco use type: Cigarette Cigarette Packs Per Day: 0.5 Cigarettes Per Day: 10.0 service: No Current occupational status: unemployed Review of Systems Const Denies daytime sleepiness, Denies excessive sweating, Denies fatigue, Denies fever(s), Denies lethargy, Denies malaise, Denies night sweats, Denies snoring and Denies weight loss Eyes Denies blurry vision and Denies itchy eyes ENT Denies nasal congestion, Denies post nasal drip, Denies sinus pain, Denies sinus pressure and Denies other ( Thrush) Card Denies chest pain, Denies pedal edema, Denies dyspnea, Denies orthopnea and Denies paroxysmal nocturnal dyspnea Resp Reports cough, Denies hemoptysis, Denies excessive phlegm production, Denies dyspnea, Denies snoring and Reports wheezing GI Denies abdominal pain and Denies heartburn Musc Denies myalgias, Denies arthralgias and Denies joint swelling Skin/Breast Denies rash Neuro Denies memory loss and Denies seizure-like activity Psych Denies abnormal sleep pattern, Denies anxiety and Denies memory loss Endo Denies excessive sweating, Denies fatigue and Denies heat intolerance Tuan/Lymph Denies easy bruising Aller/Immun Denies itchy eyes, Denies seasonal rhinorrhea and Reports wheezing Physical Exam Vital Signs: Last Vital Signs Pulse 94 01/12/25 13:49 BP 102/62 01/12/25 13:49 Pulse Ox 99 01/12/25 13:49 Oxygen Delivery Method Room Air 01/12/25 13:49 BMI result Body Mass Index 37.6 Const General: no acute distress and alert Nutritional Appearance: obese Orientation/consciousness: Other orientation findings ( oriented) HEENT Head: Yes atraumatic Eyes General: appearance normal, both eyes and all related structures Sclerae: sclerae normal EOM: EOMs intact bilaterally Neck Neck: Yes supple Lymphatic: no lymphadenopathy noted Resp Effort & Inspection: normal respiratory effort and no use of accessory muscles Auscultation: clear to auscultation bilaterally Cardio Rate: regular rate Rhythm: regular rhythm Heart sounds: no gallops, no murmurs and no rubs Skin General skin exam: other ( warm) Extrem General: No clubbing, No cyanosis and No edema Assessment & Plan Assessment & Plan (1) AIRAM (obstructive sleep apnea): Code(s): G47.33 - Obstructive sleep apnea (adult) (pediatric) Category: Medical Plan: Now well controlled on current CPAP therapy. Continue CPAP therapy. (2) Asthma: Code(s): J45.909 - Unspecified asthma, uncomplicated Category: Medical Plan: Baseline controlled on Symbicort and albuterol MDI, however with recent exacerbation only partially treated with a prednisone pulse, will treat with a prednisone taper. (3) Respiratory bronchiolitis associated interstitial lung disease: Code(s): J84.115 - Respiratory bronchiolitis interstitial lung disease Category: Medical Plan: Previously with resolution symptoms, however with no imaging follow-up. Will obtain CT chest for further evaluation. Medications: New prednisone Take 4 tabs daily for 3 days, then go down by 1 tab every 3 days 10 mg PO DIRECTED 30 tabs 0RF prednisone Take 4 tabs daily for 3 days, then go down by 1 tab every 3 days 10 mg PO DIRECTED 30 tabs 0RF Coding Level of Care Code Est Pt Level 4 (57155) Complex EM visit Add On G2211 Diagnoses AIRAM (obstructive sleep apnea) G47.33 Asthma J45.909 Respiratory bronchiolitis associated interstitial lung disease J84.115
[2025-01-12 13:49] VITALS: BP 102/62; PULSE 94; O2SAT 99; BMI 37.6
--- OUTSIDE RECORDS SUMMARY | 2025-01-12 16:41 | XMS_ITS | Encounter Summary ---
Author Organization [employer] [facility] Address [address] [place] [address] [address]t [place] [address] Care Team Providers Care Security Tester Name Role Phone Unavailable Primary Care Provider Unavailabl e Reason for Visit * Reason Comments Med Refill Encounter Details Date Type Department Care Team (Late st Contact Info) Description 06/23/2024 Refill [facility] [address] [place], [place] [phone] Pop Oneil DDS [address] [place], [place] [phone] Social History Tobacco Use Types Packs/Day Years [...]
--- OUTSIDE RECORDS SUMMARY | 2025-01-12 16:41 | XMS_ITS | Clinical Summary ---
Demographics Address [address] [facility] [address] [place] [address] Work Phone Home Phone Mobile Phone Preferred Language es Marital Status Single Uatsdin Affiliation Unknown Race Other Race Ethnic Group or Author Organization [facility] Address [address] [address] [place] [address] Care Team Providers Care Sidewalk Repairer Name Role Phone Unavailable Primary Care Provider [...] Sod Fluoride-Potassiu m Nitrate 1.1-5 % paste [place] teeth for 2 minutes, morning and night. [...] URINALYSIS, COMPLETE Routine 01/06/2025 2:00 PM EST CULTURE, URINE, ROUTINE Routine 01/06/2025 2:00 PM EST DNA (DS) [...] Recently Relevant to Health Maintenance Results * Culture, Urine, Routine (01/06/2025 2:00 PM EST) Urine Urine specimen obtained by clean catch procedure / Unknown 01/06/2025 2:00 PM EST 01/06/2025 3:23 PM EST Comment:[facility] Narrative [facility] - 01/08/2025 12:08 PM EST Urine Culture Report Result Urine Culture 10,000 to 50,000 cfu/ml Urine Culture Mixed bacterial jyoti characteristic of Urine Culture urogenital contamination. Specimen Source: Urine clean catch us Generic External Data Provider LAB MICROBIOLOGY - GENERAL ORDERABLES Final Result [facility] [address] [place] [phone] * DNA (ds) Antibody (12/29/2024 12:17 PM EST) Anti DNA DS Antibody 3 IU/mL [facility] Comment:IU/mL Interpretation < or = 4 Negative 5-9 Indeterminate > or = 10 PositiveTHIS TEST WAS PERFORMED AT:[employer] [place] [id number] PAREDES MD 12/29/2024 12:1 7 PM EST 12/29/2024 12:17 PM EST Generic External Data Provider LAB BLOOD ORDERAB LES Final Result Performing Organization Address [facility]/ZIP Co de Phone Number [facility] [address] [place] [phone] * Complement Component C3c (12/29/2024 12:17 PM EST) Complement C3 127 83 - 193 mg/dL [facility] Comment:THIS TEST WAS PERFOR MED AT:[employer] [address] [id number] PAREDES MD 12/29/2024 12:1 7 PM EST 12/29/2024 12:17 PM EST Generic External Data Provider LAB BLOOD ORDERAB LES Final Result Performing Organization Address [facility] Co de Phone Number [facility] [address] [place] [phone] * Complement Component C4c (12/29/2024 12:17 PM EST) Complement C4 28 15 - 57 mg/dL [facility] Comment:THIS TEST WAS PERFOR MED AT:[employer] [id number] [place] [phone] PAREDES MD 12/29/2024 12:1 7 PM EST 12/29/2024 12:17 PM EST Generic External Data Provider LAB BLOOD ORDERAB LES Final Result Performing Organization Address City/[facility] Co de Phone Number [facility] [address] [place] [phone] * Protein Creatinine Ratio, Urine (12/29/2024 12:09 PM EST) Creatinine, Urine 186.84 mg/dL [facility] Protein, Total, Random Urine 12 <12 mg/dL [facility] Protein/Creati nine Ratio, Ur 0.06 <0.2 [facility] Comment:The spot urine prote in:creatinine ratio may increase to 0.3during normal . 12/29/2024 12:0 9 PM EST 12/29/2024 12:29 PM EST us Generic External Data Provider LAB URINE ORDERAB LES Final Result [facility] [address] [place] [phone] from Last 3 Months Insurance * Guarantor: Marilyn Wells I Account Type Relation to Patient Date of Phone Billing Address Personal/Family Self [address] [place] [address] [facility] STANDARD * Guarantor: Marilyn Wells I Account Type Relation to Patient Date of Phone Billing Address Dental Self [address] [place] [address] [facility] MEDICAID STAND ADULT * Guarantor: Marilyn Wells I Account Type Relation to Patient Date of Phone Billing Address Personal/Family Self [address] [place] [address] * Guarantor: Marilyn Wells I Account Type Relation to Patient Date of Phone Billing Address Personal/Family Self [address] [place] [address] * Guarantor: Marilyn Wells I Account Type Relation to Patient Date of Phone Billing Address Personal/Family Self [address] [place] [address]
== END 2025-01-12 14:05 | disposition home or self-care (01) ==
LOC: HO.HPS 13:44
PROVIDERS: PCP Student in an Organized Health Care Education/Training Program; Visit Provider Internal Medicine Pulmonary Disease
DX: G47.33 Obstructive sleep apnea (adult) (pediatric) (principal); J45.909 Unspecified asthma, uncomplicated; J84.115 Respiratory bronchiolitis interstitial lung disease
CPT/HCPCS: 99214; G2211

== ENCOUNTER → 2025-01-12 13:43 | Outpatient (BNVA) | payer OTHER, SELFPAY | PROVIDERS: PCP Student in an Organized Health Care Education/Training Program; Visit Provider Internal Medicine Pulmonary Disease | DX: J84.115 Respiratory bronchiolitis interstitial lung disease (principal); J45.909 Unspecified asthma, uncomplicated; G47.33 Obstructive sleep apnea (adult) (pediatric) | CPT/HCPCS: 99212 ==

== ENCOUNTER 2025-01-25 17:39 | Outpatient (REF) | payer OTHER, SELFPAY ==
--- NOTE | ~2025-01-25 | MR_ITS ---
EXAMINATION: MRI RIGHT KNEE WITHOUT CONTRAST HISTORY: W19.XXXA - Unspecified fall, initial encounter COMPARISON: Comparison is made with the prior examination dated 07/12/2024. TECHNIQUE: Coronal T1 and fat-suppressed proton density, sagittal proton density and fat-suppressed proton density, and axial fat suppressed T2 weighted MR images of the right knee were obtained. FINDINGS: Bone marrow: Bone marrow signal intensity is normal. Joint effusion: There is a small suprapatellar joint effusion. Vila's cyst: There is no Vila's cyst. Articular cartilage: There is mild narrowing of the cartilage involving the medial femoral condyle without change. Muscles/soft tissues: The visualized muscles demonstrate normal signal intensity. Anterior cruciate ligament: Intact Posterior cruciate ligament: Intact Medial collateral ligament: Intact Lateral collateral ligament: Intact Medial meniscus: Intact Lateral meniscus: There is mild increased signal intensity the origin of the cystic collateral ligament without change. No tear is identified. Flexor mechanism: The popliteus, gastrocnemius, and hamstring tendons are intact. Quadriceps tendon: Again seen is mild increased T2 signal intensity at the insertion of the quadriceps tendon is intact with tendinosis. Patellar tendon: Again seen is increased T2 signal intensity at the origin of the patellar tendon consistent with tendinosis. Patellar retinacula: Intact MR/MR knee RT wo con IMPRESSION: 1. Tendinosis of the distal quadriceps and proximal patellar tendons without change. 2. Mild thinning of the cartilage of the medial femoral condyle without change. 3. Small suprapatellar joint effusion. Electronically signed by: Shubham Conway MD 01/26/2025 10:09 AM EDT
--- OUTSIDE RECORDS SUMMARY | 2025-01-25 19:13 | XMS_ITS | Continuity of Care Document ---
Author Organization [facility] Address [address] [place] [address]- Care Team Providers Care Employee Wellness/Fitness Coordinator Name Role Phone Broderick Kidd MD Primary Care Physician Encounter [facility] Date(s): 12/24/24 - 01/23/25 [facility] [address] [place], [place] [phone] Encounter Type: Triage Allergies, Adverse Reactions, Alerts [...] 04/25/23 Given tetanus/diphtheria/pertussis, acel(Tdap) 3 01/28/13 Given [id number] bivalent booster vax 01/03/23 Recorded SARS-CoV-2 (COVID-19) [...] 07/05/08 Recor ded 1Result Comment: received at [facility] in [place] 2Admin Note: flulaval vis given vis date 05/05/2012 3Admin Note: VIS GIVEN VIS DATE 11/27/2011 4Result Comment: received 2nd dose at [facility] 5Result Comment: received at [facility] Medications acetaminophen 500 mg oral tablet 2 tablet, By Mouth, Every 8 hours, PRN NEEDED FOR PAIN, # 100 tablet, 3 Refills, Maintenance, 12/02/24 5:10:00 PM EST[facility], cm, 12/02/24 16:39:00 EST, Height, 108.1, kg,10/16/24 8:53:00 EST, Dry Weight Start Date: 12/02/24 Status: Ordered Quantity: 100.0 Unit: tablet Repeat number: 4 Ajovy Autoinjector 225 mg/1.5 mL subcutaneous solution = 225 mg, Subcutaneous Injection, Every 28 days, # 1 kit, 5 Refills, Maintenance, 01/20/25 6:57:00 AM EDT, [facility], Partial fill upon patient request if the prescription is for a schedule II opioid drug., 173, cm, 12/02/24 16:39:00 EST, Height, 108.1, kg, 10/16/24 8:53:00 EST, Dry Weight Start Date: 01/20/25 Status: Ordered Quantity: 1.0 Unit: kit Repeat number: 6 amitriptyline 10 mg oral tablet 10 mg, 1, tablet, By Mouth, Daily at bedtime, # 90 tablet, Refills 3, Tot. Refills 3, Maintenance, 07/24/24 5:29:00 PM EDT, Route to Pharmacy Electronically, [facility]/pharmacy #[id number], Partial fill upon patient request [...] 9:24:00 AM EST, Route to Pharmacy Electronically, [id number], 173, cm, 10/16/24 8:53:00 EST, Height, 108.1, kg, 10/16/24 8:53:00 EST, Dry Weight Start Date: 10/16/24 Status: Ordered Quantity: 90.0 Unit: tablet Repeat number: 1 ammonium lactate 5% topical lotion 1 application, Topically, 2 times a day, PRN Dry Skin, apply and rub in well, # 120 Gm, 0 Refills, Maintenance, 12/05/22 5:09:00 PM EST, [facility]otion, [id number], Partial fill upon patient request ifthe [...] release tablet 1 tablet, By Mouth, Daily, REFILLS PER PCP OR PERSONNEL CLERK, # 90 tablet, 2 Refills, Maintenance, 01/06/25 11:31:00 AM EST, [facility] [place], 173, cm, 12/02/24 16:39:00 EST, Height, 108.1, kg, 10/16/24 8:53:00 EST, Dry Weight Start Date: 01/06/25 Status: Ordered Quantity: 90.0 Unit: tablet Repeat number: 1 atorvastatin 80 mg oral tablet = 80 mg, By Mouth, Daily at bedtime, # 90 capsule, 3 Refills, Maintenance, 11/02/24 1:22:00 PM EST,Tablet, [facility]/pharmacy #[id number], Partial fill upon patient request [...] 5 Refills, Maintenance, 11/02/24 1:23:00 PM EST, [facility]/pharmacy #[id number], 173, cm, 11/02/24 13:12:00 EST, Height, [...] 1% topical gel See Instructions, APPLY TOPICALLY FOUR TIMES A DAY NEEDED FOR NEUROPATHIC PAIN, # 100 Gm, 1 Refills, Maintenance, 01/12/25 7:51:00 AM EDT, [facility] [place], 25, APPLY TOPICALLY FOUR TIMES A DAYAS NEEDED FOR NEUROPATHIC PAIN, 173, cm, 12/02/24 16:39:00 EST, Height, 108.1, kg, 10/16/24 8:53:00EST, Dry Weight Start Date: 01/12/25 Status: Ordered Quantity: 100.0 Unit: g Repeat [...] 2:26:00 PM EST, Route to Pharmacy Electronically, [facility], 173, cm, 12/02/24 16:39:00 EST, Height, 108.1, kg, 10/16/24 8:53:00 EST, Dry Weight Start Date: 01/01/25 Status: Ordered Quantity: 180.0 Unit: tablet Repeat number: 2 lidocaine 5% topical film 1 patch, Topically, Daily, PRN NEEDED FOR PAIN MILD, REMOVE AFTER 12 HOURS, # 30 patch, 0 Refills, Maintenance, 02/05/23 11:52:00 PM EDT, [id number], 30, APPLY 1 PATCH TOPICALLY DAILY,X30 DAYS [...] 2:48:00 PM EST, Route to Pharmacy Electronically, [id number], 165.1, cm, 12/05/22 15:21:00 EST, Height Start Date: 12/31/22 Stop Date: 01/30/23 Status: Ordered Quantity: 60.0 Unit: tablet Repeat number: 1 losartan 50 mg oral tablet 1 tablet, By Mouth, Daily, # 90 tablet, 1 Refills, Maintenance, 09/16/24 10:17:00 AM EST, [facility]/pharmacy #[id number], 173, cm, 08/19/24 12:16:00 EDT, Height, 101.4, kg, 04/27/24 14:38:00 EDT, Dry Weight Start Date: 09/16/24 Status: Ordered Quantity: 90.0 Unit: tablet Repeat number: 2 meclizine 25 mg oral tablet 1 tablet, By Mouth, 2 times a day, PRN NEEDED FOR DIZZINESS, # 60 tablet, 1 Refills, Maintenance, 11/11/24 12:20:00 PM EST, [id number], 173, cm, 11/02/24 13:28:00 EST, Height, 108.1, kg, 10/16/24 8:53:00 EST, Dry Weight Start Date: 11/11/24 Status: Ordered Quantity: 60.0 Unit: tablet Repeat number: 1 Myrbetriq 50 mg oral tablet, extended release 1 tablet, By Mouth, Daily, DO NOT CRUSH OR CHEW., # 30 tablet, 2 Refills, Maintenance, 11/09/24 11:02:00 AM EST, [facility]/pharmacy #[id number], 173, cm, 11/02/24 13:28:00 EST, Height, 108.1, kg, 10/16/24 8:53:00 EST, Dry Weight Start Date: 11/09/24 Status: Ordered Quantity: 30.0 Unit: tablet Repeat number: 3 Myrbetriq 50 mg oral tablet, extended release 1 tablet, By Mouth, Daily, DO NOT CRUSH OR CHEW., # 30 tablet, 11 Refills, Maintenance, 11/13/24 12:20:00 PM EST, [facility], 173, cm, 11/02/24 13:28:00 EST, Height, 108.1, kg, 10/16/24 8:53:00 EST, Dry Weight Start Date: 11/13/24 Status: Ordered Quantity: 30.0 Unit: tablet Repeat number: 12 naratriptan 2.5 mg oral tablet See Instructions, TAKE 1 TABLET BY MOUTH EVERY DAY NEEDED FOR MIGRAINE, MAY REPEAT DOSE AFTER 4 HOURS NEEDED, # 18 tablet, 2 Refills, Maintenance, 01/01/25 9:12:00 PM EST, [facility] [place], 173, cm, 12/02/24 16:39:00 EST, Height, 108.1, [...] AM EDT, 08/10/24 11:26:00 AM EDT, Patch, [facility]/pharmacy #[id number], Partial fill upon patient request if the prescription is for a schedule II opioid drug., 2 patch Topically Daily,x30 days,Instr:Use for at least 3-6 months. Use two patches for total of 42 mg per day., 173, cm, 07/29/24 15:21:00 EDT, Height, 101.4, kg, 04/27/24 14:38:00 EDT, DryWeight Start Date: 08/10/24 Stop Date: 02/06/25 Status: [...] 0 Refills, Maintenance, 09/23/23 10:53:00 AM EST, [id number], 165, cm, 09/12/23 13:12:00 EST, Height, 100, kg, 04/04/23 16:15:00 EDT, Dry Weight Start Date: 09/23/23 Status: Ordered Quantity: 30.0 Unit: tablet Repeat number: 1 pantoprazole 20 mg oral delayed release tablet = 20 mg, By Mouth, Daily, Take for next 12 months while taking aspirin and Brillinta. Refill per PCP or Informatics Educator., # 90 tablet, 3 Refills, Maintenance, 11/02/24 [...] capsule, 0 Refills, Maintenance, 10/16/24 9:25:00AM EST, [id number], dose reduced to 150mg bid 08/17/24., 173, [...] 3 Refills, Maintenance, 12/08/24 2:34:00 PM EST, [id number], 173, cm, 12/02/24 16:39:00 EST, Height, 108.1, [...] 11:21:00 AM EST, Route to Pharmacy Electronically, [id number], [facility]/pharmacy #[id number], 173, cm, 12/02/24 16:39:00 EST, Height, 108.1, kg, 10/16/24 8:53:00 EST, Dry Weight Start Date: 12/24/24 Status: Ordered Quantity: 30.6 Unit: each Repeat number: 6 Ventolin HFA 108 mcg/inh inhalation aerosol with adapter 2 puffs, Inhalation, Every 6 hours, PRN NEEDED FOR WHEEZE OR FOR SHORTNESS OF BREATH, # 18 each,5 Refills, Maintenance, 11/27/24 4:28:00 PM EST, [facility], 173, cm, 11/02/24 13:28:00 EST, Height, 108.1, kg, 10/16/24 8:53:00 EST, Dry Weight Start Date: 11/27/24 Status: Ordered Quantity: 18.0 Unit: each Repeat number: 6 Vitamin B-12 1000 mcg oral tablet See Instructions, TAKE 1 TABLET BY MOUTH EVERY DAY, # 90 tablet, Refills 0, Maintenance, 12/04/24 1:50:00 PM EST, Instructions Replace Required Details, Route to Pharmacy Electronically, [facility] [place], 173, cm, 12/02/24 16:39:00 EST, Height, 108.1, [...] 0 Refills, Maintenance, 08/26/24 11:05:00 AM EDT, [facility] #[id number], Partial fill upon patient request if the [...] Refills, Maintenance, 10/30/24 3:09:00 PM EST, Solution, [facility]., patient going to d/c mikki, 173, cm, 10/16/24 8:53:00 EST, Height, 108.1, kg, 10/16/24 8:53:00 EST, Dry Weight Start Date: 10/30/24 Status: Ordered Quantity: 4.0 Unit: each Repeat number: 1 Zepbound 5 mg/0.5 mL subcutaneous solution = 5 mg, Subcutaneous Injection, Every week, rotate injection sites, # 4 each, 1 Refills, Maintenance, 11/02/24 1:19:00 PM EST, Solution, [facility] Partial fill upon patient request if the [...] 2 Refills, Maintenance, 12/02/24 5:08:00 PM EST, [facility] dose increase to 7.5mg [...] Active 1Follows with therapist and psychiatrist at [place] per previous notes 2PFTs show no obstruction. However has h/o asthma. Ct chest in 07/27 and pulm note says restrictive lung disease mild similiar to findings on PFT 3Follows with therapist and psychiatrist at [place] per previous notes 4Sleep study in 2016. [...] Team Personnel Name: Terrence Pa RN Position: [facility] RN Member Role: Primary Care Nurse Name: Broderick Kidd MD Position: [facility] Resident Member Role: PCP Address: [address] [place] [address] [place] [address]- Telecom: Care Team Related Persons Name: MARIO GERARD Name: CARI GARCÍA Name: NOELLE MAY Insurance Providers Guarantor name: TAYLOR SALAZAR Health Plan Information #: 1 Payer: [facility] Member Number: NA Policy Number: NA Group Number: NA
== END 2025-01-25 17:40 | disposition home or self-care (01) ==
LOC: HO.MRI 17:39
PROVIDERS: PCP Student in an Organized Health Care Education/Training Program; Visit Provider Student in an Organized Health Care Education/Training Program
DX: S83.206D Unspecified tear of unspecified meniscus, current injury, right knee, subsequent encounter (principal); M25.561 Pain in right knee; Z91.81 History of falling
CPT/HCPCS: 73721

== ENCOUNTER → 2025-01-25 17:39 | Outpatient (BNV) | payer OTHER, SELFPAY | PROVIDERS: PCP Student in an Organized Health Care Education/Training Program; Visit Provider Radiology Diagnostic Radiology | DX: M25.561 Pain in right knee (principal) | CPT/HCPCS: 73721 ==

== ENCOUNTER 2025-02-02 14:11 | Outpatient (REF) | payer OTHER, SELFPAY ==
--- NOTE | ~2025-02-02 | MM_ITS ---
EXAMINATION: MM SCREENING DIGITAL BREAST TOMOSYNTHESIS, BILATERAL CLINICAL INFORMATION: Screening. Asymptomatic. COMPARISON: Mammography: Comparison is made with available priors TECHNIQUE: Digital breast mammography with tomosynthesis is performed in both the craniocaudal and mediolateral oblique views along with computer-aided detection (CAD). FINDINGS: There are scattered areas of fibroglandular density (ACR BI-RADS breast composition Category b). There are no significant masses, abnormal calcifications, or other abnormalities. MM/MM tomosynthesis screening BI IMPRESSION: No mammographic evidence of malignancy. Patient has left clear and milky discharge was the first time happened during the exam. Recommend clinical evaluation and a diagnostic ultrasound can be ordered and performed. ASSESSMENT: BI-RADS BI-RADS 0 - Incomplete: Needs additional Imaging. RECOMMENDATION: 1. Additional ultrasound of the left breast Radiology department staff will contact the patient for additional imaging. Additional Imaging required This examination should not preclude the clinical evaluation of a suspicious palpable abnormality. This patient's information was entered into a reminder system with a target due date for their next mammogram. Electronically signed by: Pepper Guzman DO 02/02/2025 05:40 PM EDT
--- OUTSIDE RECORDS SUMMARY | 2025-02-02 16:58 | XMS_ITS | Continuity of Care Document ---
Author Organization [facility] Address [address], [address], [address] [place] [address]- Care Team Providers Care Coal Shoveler Name Role Phone Broderick Kidd MD Primary Care Physician [id number] Date(s): 01/01/25 - 01/31/25 [facility] [address], [address] [place] [address]- Encounter Type: Triage Allergies, Adverse Reactions, Alerts [...] 04/25/23 Given tetanus/diphtheria/pertussis, acel(Tdap) 3 01/28/13 Given [id number] bivalent booster vax 01/03/23 Recorded SARS-CoV-2 (COVID-19) [...] 07/05/08 Recor ded 1Result Comment: received at [facility] on [facility] in [place] 2Admin Note: flulaval vis given vis date 05/05/2012 3Admin Note: VIS GIVEN VIS DATE 11/27/2011 4Result Comment: received 2nd dose at [facility] 5Result Comment: received at [facility] Medications acetaminophen 500 mg oral tablet 2 tablet, By Mouth, Every 8 hours, PRN NEEDED FOR PAIN, # 100 tablet, 3 Refills, Maintenance, 12/02/24 5:10:00 PM EST, [facility] 173, cm, 12/02/24 16:39:00 EST, Height, 108.1, kg,10/16/24 8:53:00 EST, Dry Weight Start Date: 12/02/24 Status: Ordered Quantity: 100.0 Unit: tablet Repeat number: 4 Ajovy Autoinjector 225 mg/1.5 mL subcutaneous solution = 225 mg, Subcutaneous Injection, Every 28 days, # 1 kit, 5 Refills, Maintenance, 01/20/25 6:57:00 AM EDT, [facility], Partial fill upon patient [...] 5:29:00 PM EDT, Route to Pharmacy Electronically, [facility]/pharmacy #[id number], Partial fill upon patient [...] 9:24:00 AM EST, Route to Pharmacy Electronically, [id number], 173, cm, 10/16/24 8:53:00 EST, Height, 108.1, kg, 10/16/24 8:53:00 EST, Dry Weight Start Date: 10/16/24 Status: Ordered Quantity: 90.0 Unit: tablet Repeat number: 1 ammonium lactate 5% topical lotion 1 application, Topically, 2 times a day, PRN Dry Skin, apply and rub in well, # 120 Gm, 0 Refills, Maintenance, 12/05/22 5:09:00 PM EST, Lotion, [facility]/pharmacy #[id number], Partial fill upon patient [...] By Mouth, Daily, REFILLS PER PCP OR WHARF HAND, # 90 tablet, 2 Refills, Maintenance, 01/06/25 11:31:00 AM EST, [facility], 173, cm, 12/02/24 16:39:00 EST, Height, 108.1, kg, 10/16/24 8:53:00 EST, Dry Weight Start Date: 01/06/25 Status: Ordered Quantity: 90.0 Unit: tablet Repeat number: 1 atorvastatin 80 mg oral tablet = 80 mg, By Mouth, Daily at bedtime, # 90 capsule, 3 Refills, Maintenance, 11/02/24 1:22:00 PM EST,Tablet, [facility]/pharmacy #[id number], Partial fill upon patient [...] 5 Refills, Maintenance, 11/02/24 1:23:00 PM EST, [facility]/pharmacy #[id number], 173, cm, 11/02/24 13:12:00 EST, [...] 1 Refills, Maintenance, 01/12/25 7:51:00 AM EDT, [facility], 25, APPLY TOPICALLY FOUR TIMES A DAYAS NEEDED FOR NEUROPATHIC PAIN, 173, cm, 12/02/24 16:39:00 EST, Height, 108.1, kg, 10/16/24 8:53:00EST, Dry Weight Start Date: 01/12/25 Status: Ordered Quantity: 100.0 Unit: g Repeat number: 1 docusate sodium 100 mg oral tablet 1 tablet = 100 mg, By Mouth, 2 times a day, to help prevent constipation with plenty of water, # 60tablet, 11 Refills, Maintenance, 01/28/25 6:09:00 PM EDT, [facility], Partial fill upon patient request if the prescription is for a schedule II opioid drug., 173, cm, 01/28/25 17:21:00 EDT, Height, 108.1, kg, 10/16/24 8:53:00 EST, Dry Weight Start Date: 01/28/25 Status: Ordered Quantity: 60.0 Unit: tablet Repeat number: 12 duloxetine 30 mg oral enteric coated capsule [...] 2:26:00 PM EST, Route to Pharmacy Electronically, [facility], 173, cm, 12/02/24 16:39:00 EST, Height, 108.1, kg, 10/16/24 8:53:00 EST, Dry Weight Start Date: 01/01/25 Status: Ordered Quantity: 180.0 Unit: tablet Repeat number: 2 lidocaine 5% topical film 1 patch, Topically, Daily, PRN NEEDED FOR PAIN MILD, REMOVE AFTER 12 HOURS, # 30 patch, 0 Refills, Maintenance, 02/05/23 11:52:00 PM EDT, [id number], 30, APPLY 1 PATCH TOPICALLY DAILY,X30 DAYS [...] 2:48:00 PM EST, Route to Pharmacy Electronically, [id number], 165.1, cm, 12/05/22 15:21:00 EST, Height Start Date: 12/31/22 Stop Date: 01/30/23 Status: Ordered Quantity: 60.0 Unit: tablet Repeat number: 1 losartan 50 mg oral tablet 1 tablet, By Mouth, Daily, # 90 tablet, 1 Refills, Maintenance, 09/16/24 10:17:00 AM EST, [facility]/pharmacy #[id number], 173, cm, 08/19/24 12:16:00 EDT, Height, 101.4, kg, 04/27/24 14:38:00 EDT, Dry Weight Start Date: 09/16/24 Status: Ordered Quantity: 90.0 Unit: tablet Repeat number: 2 meclizine 25 mg oral tablet 1 tablet, By Mouth, 2 times a day, PRN NEEDED FOR DIZZINESS, # 60 tablet, 3 Refills, Maintenance, 01/28/25 5:58:00 PM EDT, [facility]., 173, cm, 01/28/25 17:21:00 EDT, Height, 108.1,kg, 10/16/24 8:53:00 EST, Dry Weight Start Date: 01/28/25 Status: Ordered Quantity: 60.0 Unit: tablet Repeat number: 4 Metamucil 3.4 gm/5.2 gm oral powder for reconstitution = 1.7 Gm, By Mouth, Daily, PRN as needed for constipation, dissolve in 8 oz of fluid to prevent constipation., # 570 Gm, 11 Refills, Maintenance, 01/28/25 5:58:00 PM EDT, REC Powder, [facility], Partial fill upon patient request if the prescription is for a schedule II opioid drug., 173, cm, 01/28/25 17:21:00 EDT, Height, 108.1, kg, 10/16/24 8:53:00 EST, Dry Weight Start Date: 01/28/25 Status: Ordered Quantity: 570.0 Unit: g Repeat number: 12 Myrbetriq 50 mg oral tablet, extended release 1 tablet, By Mouth, Daily, DO NOT CRUSH OR CHEW., # 30 tablet, 2 Refills, Maintenance, 11/09/24 11:02:00 AM EST, [facility]/pharmacy #[id number], 173, cm, 11/02/24 13:28:00 EST, Height, 108.1, kg, 10/16/24 8:53:00 EST, Dry Weight Start Date: 11/09/24 Status: Ordered Quantity: 30.0 Unit: tablet Repeat number: 3 Myrbetriq 50 mg oral tablet, extended release 1 tablet, By Mouth, Daily, DO NOT CRUSH OR CHEW., # 30 tablet, 11 Refills, Maintenance, 11/13/24 12:20:00 PM EST, [facility], 173, cm, 11/02/24 13:28:00 EST, Height, 108.1, kg, 10/16/24 8:53:00 EST, Dry Weight Start Date: 11/13/24 Status: Ordered Quantity: 30.0 Unit: tablet Repeat number: 12 naratriptan 2.5 mg oral tablet See Instructions, TAKE 1 TABLET BY MOUTH EVERY DAY NEEDED FOR MIGRAINE, MAY REPEAT DOSE AFTER 4 HOURS NEEDED, # 18 tablet, 2 Refills, Maintenance, 01/01/25 9:12:00 PM EST, [facility], 173, cm, 12/02/24 16:39:00 EST, Height, [...] AM EDT, 08/10/24 11:26:00 AM EDT, Patch, [facility]/pharmacy #[id number], Partial fill upon patient [...] 0 Refills, Maintenance, 09/23/23 10:53:00 AM EST, [facility] [id number], 165, cm, 09/12/23 13:12:00 EST, Height, 100, kg, 04/04/23 16:15:00 EDT, Dry Weight Start Date: 09/23/23 Status: Ordered Quantity: 30.0 Unit: tablet Repeat number: 1 pantoprazole 20 mg oral delayed release tablet = 20 mg, By Mouth, Daily, Take for next 12 months while taking aspirin and Brillinta. Refill per PCP or Senior Salesforce Developer., # 90 tablet, 3 Refills, Maintenance, 11/02/24 [...] day, # 60 capsule, 0 Refills, Maintenance, 01/28/25 6:06:00 PM EDT, [facility], dose reduced to 150mg bid 08/17/24., 173, cm, 01/28/25 17:21:00 EDT, Height, 108.1, kg, 10/16/24 8:53:00 EST, Dry Weight Start Date: 01/28/25 Status: Ordered Quantity: 60.0 Unit: capsule Repeat [...] 3 Refills, Maintenance, 12/08/24 2:34:00 PM EST, [id number], 173, cm, 12/02/24 16:39:00 EST, Height, 108.1, [...] 11:21:00 AM EST, Route to Pharmacy Electronically, [id number], [facility]/pharmacy #[id number], 173, cm, 12/02/24 16:39:00 EST, Height, 108.1, kg, 10/16/24 8:53:00 EST, Dry Weight Start Date: 12/24/24 Status: Ordered Quantity: 30.6 Unit: each Repeat number: 6 Ventolin HFA 108 mcg/inh inhalation aerosol with adapter 2 puffs, Inhalation, Every 6 hours, PRN NEEDED FOR WHEEZE OR FOR SHORTNESS OF BREATH, # 18 each,5 Refills, Maintenance, 11/27/24 4:28:00 PM EST, [facility], 173, cm, 11/02/24 13:28:00 EST, Height, 108.1, kg, 10/16/24 8:53:00 EST, Dry Weight Start Date: 11/27/24 Status: Ordered Quantity: 18.0 Unit: each Repeat number: 6 Vitamin B-12 1000 mcg oral tablet See Instructions, TAKE 1 TABLET BY MOUTH EVERY DAY, # 90 tablet, Refills 0, Maintenance, 12/04/24 1:50:00 PM EST, Instructions Replace Required Details, Route to Pharmacy Electronically, [facility], 173, cm, 12/02/24 16:39:00 EST, Height, [...] 0 Refills, Maintenance, 08/26/24 11:05:00 AM EDT, [id number], Partial fill upon patient request if the [...] Refills, Maintenance, 10/30/24 3:09:00 PM EST, Solution, [facility]., patient going to d/kelly kaye, 173, cm, 10/16/24 8:53:00 EST, Height, 108.1, kg, 10/16/24 8:53:00 EST, Dry Weight Start Date: 10/30/24 Status: Ordered Quantity: 4.0 Unit: each Repeat number: 1 Zepbound 5 mg/0.5 mL subcutaneous solution = 5 mg, Subcutaneous Injection, Every week, rotate injection sites, # 4 each, 1 Refills, Maintenance, 11/02/24 1:19:00 PM EST, Solution, [facility], Partial fill upon patient request if the prescription is for a schedule II opioid drug., 173, cm, 11/02/24 13:12:00 EST, Height, 108.1, kg, 10/16/24 8:53:00 EST, Dry Weight Start Date: 11/02/24 Status: Ordered Quantity: 4.0 Unit: each Repeat number: 2 Zepbound Pen 10 mg/0.5 mL subcutaneous solution = 10 mg, Subcutaneous Infusion, Every week, # 4 each, 5 Refills, Maintenance, 01/28/25 6:00:00 PM EDT, [facility], dose increase to 10mg 01/28/25., 173, cm, 01/28/25 17:21:00 EDT, Height, 108.1, kg, 10/16/24 8:53:00 EST, Dry Weight Start Date: 01/28/25 Status: Ordered Quantity: 4.0 Unit: each Repeat number: 6 Zepbound Pen 7.5 mg/0.5 mL subcutaneous solution = 7.5 mg, Subcutaneous Infusion, Every week, # 4 each, 2 Refills, Maintenance, 12/02/24 5:08:00 PM EST, [facility]., dose increase to 7.5mg 12/02/24, 173, cm, [...] Active 1Follows with therapist and psychiatrist at [place] per previous notes 2PFTs show no obstruction. However has h/o asthma. Ct chest in 07/27 and pulm note says restrictive lung disease mild similiar to findings on PFT 3Follows with therapist and psychiatrist at [place] per previous notes 4Sleep study in 2016. [...] Care Nurse Name: Broderick Kidd MD Position: [facility] Resident Member Role: PCP Address: [address] [place] [address] [place] [address]- Telecom: Care Team Related Persons Name: MARIO GERARD Name: CARI GARCÍA Name: NOELLE MAY Insurance Providers Guarantor name: TAYLOR MARTIN [employer] Plan Information #: 1 Payer: [facility] Member Number: NA Policy Number: NA Group Number: NA
--- OUTSIDE RECORDS SUMMARY | 2025-02-02 16:58 | XMS_ITS | Encounter Summary ---
Author Organization [facility] Address [address] [place] [address] [address]t [place] [address] Care Team Providers Care Proposal Analyst Name Role Phone Unavailable Primary Care Provider Unavailabl e Reason for Visit * Reason Comments Med Refill Encounter Details Date Type Department Care Team (Late st Contact Info) Description 06/23/2024 Refill [facility] [address] [place], [place] [phone] Pop Oneil DDS [address] [place], [place] [phone] Social History Tobacco Use Types Packs/Day Years [...]
--- OUTSIDE RECORDS SUMMARY | 2025-02-02 16:58 | XMS_ITS | Clinical Summary ---
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 Spit, do not rinse. Do not eat or drink anything for 30 minutes following brushing. 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 Localized gingival recession 12/27/2023 Periodontal disease 12/27/2023 Dental calculus 12/27/2023 Encounters Date Type Department Care Team Description 01/25/2025 Orders Only [facility] External Provider, [facility] from Last 3 Months Immunizations Name Administration Dates Next Due Moderna [...] Procedure Name Priority Date/Time Associated Diagnosis Comments MR KNEE WO CONTRAST RIGHT Routine 01/25/2025 5:45 PM EDT URINALYSIS, COMPLETE Routine 01/06/2025 2:00 PM EST [...] Recently Relevant to Health Maintenance Results * MR Knee w/o Contrast Right (01/25/2025 5:45 PM EDT) Anatomical Region Laterality Modality Magnetic Resonan ce 01/25/2025 5:45 PM EDT Narrative 01/26/2025 10:12 AM EDT ? [facility] ?[address] ?[place] [address] ? Magnetic Resonance Report ? Signed ? Patient: Russell,Marilyn I ?MR#: [id number] ?? [id number] ? : 1975 ?Acct:[id number] ? Age/Sex: 49 / F ?ADM Date: 03/24/25 ? Loc: HO.MRI ? Attending Dr: Archana Donald MD ? Ordering Physician: Archana Donald MD ?? Date of Service: 01/25/25 ?? Procedure(s): MR knee RT wo con ?? Accession Number(s): [id number] ? cc: Archana Donald MD; Rebecca Perez MD ? EXAMINATION: MRI RIGHT KNEE WITHOUT CONTRAST ? HISTORY: W19.XXXA - Unspecified fall, initial encounter ? COMPARISON: Comparison is made with the prior examination dated ?? 07/12/2024. ? TECHNIQUE: ??Coronal T1 and fat-suppressed proton density, sagittal ?? proton density and fat-suppressed proton density, and axial fat ?? suppressed T2 weighted MR images of the right knee were obtained. ? FINDINGS: ? Bone marrow: Bone marrow signal intensity is normal. ? Joint effusion: There is a small suprapatellar joint effusion. ? Vila's cyst: There is no Vila's cyst. ? Articular cartilage: There is mild narrowing of the cartilage involving ?? the medial femoral condyle without change. ? Muscles/soft tissues: The visualized muscles demonstrate normal signal ?? intensity. ? Anterior cruciate ligament: Intact ? Posterior cruciate ligament: Intact ? Medial collateral ligament: Intact ? Lateral collateral ligament: Intact ? Medial meniscus: Intact ? Lateral meniscus: There is mild increased signal intensity the origin ?? of the cystic collateral ligament without change. No tear is identified. ? Flexor mechanism: The popliteus, gastrocnemius, and hamstring tendons ?? are intact. ? Quadriceps tendon: Again seen is mild increased T2 signal intensity at ?? the insertion of the quadriceps tendon is intact with tendinosis. ? Patellar tendon: Again seen is increased T2 signal intensity at the ?? origin of the patellar tendon consistent with tendinosis. ? Patellar retinacula: Intact ? MR/MR knee RT wo con ?? IMPRESSION: ? 1. Tendinosis of the distal quadriceps and proximal patellar tendons ?? without change. ? 2. Mild thinning of the cartilage of the medial femoral condyle without ?? change. ? 3. Small suprapatellar joint effusion. ? Electronically signed by: ??Shubham Conway MD ??01/26/2025 10:09 AM EDT ?? RP ? Dictated By: ?Shubham Conway MD ? Signed By: ?<Electronically signed by Shubham Conway MD in OV> ?01/26/25 1009 ? DD/ 1745 ? TD/TT: 01/25/25 1810 ? Resource Engineer: ? Procedure Note Donotuseinterpreter, Image - 01/26/2025 [place] [id number] Magnetic Resonance Report Signed Patient: Marilyn Wells IMR#: [id number] : 1975Acct:[id number] Age/Sex: 49 / FADM Date: 01/25/25 Loc: HO.MRI Attending Dr: Archana Donald MD Ordering Physician: Archana Donald MD Date of Service: 01/25/25 Procedure(s): MR knee RT wo con Accession Number(s): [id number] cc: Archana Donald MD; Rebecca Perez MD EXAMINATION: MRI RIGHT KNEE WITHOUT CONTRAST HISTORY: W19.XXXA - Unspecified fall, initial encounter COMPARISON: Comparison is made with the prior examination dated 07/12/2024. TECHNIQUE: Coronal T1 and fat-suppressed proton density, sagittal proton density and fat-suppressed proton density, and axial fat suppressed T2 weighted MR images of the right knee were obtained. FINDINGS: Bone marrow: Bone marrow signal intensity is normal. Joint effusion: There is a small suprapatellar joint effusion. Vila's cyst: There is no Vila's cyst. Articular cartilage: There is mild narrowing of the cartilage involving the medial femoral condyle without change. Muscles/soft tissues: The visualized muscles demonstrate normal signal intensity. Anterior cruciate ligament: Intact Posterior cruciate ligament: Intact Medial collateral ligament: Intact Lateral collateral ligament: Intact Medial meniscus: Intact Lateral meniscus: There is mild increased signal intensity the origin of the cystic collateral ligament without change. No tear is identified. Flexor mechanism: The popliteus, gastrocnemius, and hamstring tendons are intact. Quadriceps tendon: Again seen is mild increased T2 signal intensity at the insertion of the quadriceps tendon is intact with tendinosis. Patellar tendon: Again seen is increased T2 signal intensity at the origin of the patellar tendon consistent with tendinosis. Patellar retinacula: Intact MR/MR knee RT wo con IMPRESSION: 1. Tendinosis of the distal quadriceps and proximal patellar tendons without change. 2. Mild thinning of the cartilage of the medial femoral condyle without change. 3. Small suprapatellar joint effusion. Electronically signed by: Shubham Conway MD 01/26/2025 10:09 AM EDT Dictated By: Shubham Conway MD Signed By: <Electronically signed by Shubham Conway MD in OV> 01/26/25 1009 DD/ 6175 TD/TT: 01/25/25 1810 Resource Engineer: [facility] External Provider IMG MRI PROCEDURES Edited Result - Final * Culture, Urine, Routine (01/06/2025 2:00 PM EST) Urine Urine specimen obtained by clean catch procedure / Unknown 01/06/2025 2:00 PM EST 01/06/2025 3:23 PM EST Comment:UACC Narrative [facility] - 01/08/2025 12:08 PM EST Urine Culture Report Result Urine Culture 10,000 to 50,000 cfu/ml Urine Culture Mixed bacterial jyoti characteristic of Urine Culture urogenital contamination. Specimen Source: Urine clean catch Generic External Data Provider LAB MICROBIOLOGY - GENERAL ORDERABLES Final Result [facility] [address] [place] [phone] * DNA (ds) Antibody (12/29/2024 12:17 PM EST) Anti DNA DS Antibody 3 IU/mL [facility] Comment:IU/mL Interpretation < or = 4 Negative 5-9 Indeterminate > or = 10 PositiveTHIS TEST WAS PERFORMED AT:[facility] [place] [id number] PAREDES MD 12/29/2024 12:1 7 PM EST 12/29/2024 12:17 PM EST us Generic External Data Provider LAB BLOOD ORDERAB LES Final Result Performing Organization Address [facility] Co de Phone Number [facility] [address] [place] [phone] * Complement Component C3c (12/29/2024 12:17 PM EST) Complement C3 127 83 - 193 mg/dL [facility] Comment:THIS TEST WAS PERFOR MED AT:[facility] [address] [phone] PRAEDES MD 12/29/2024 12:1 7 PM EST 12/29/2024 12:17 PM EST Generic External Data Provider LAB BLOOD ORDERAB LES Final Result Performing Organization Address [facility] Co de Phone Number [facility] [address] [place] [phone] * Complement Component C4c (12/29/2024 12:17 PM EST) Complement C4 28 15 - 57 mg/dL [facility] Comment:THIS TEST WAS PERFOR MED AT:[facility] [address] [phone] PAREDES MD 12/29/2024 12:1 7 PM EST 12/29/2024 12:17 PM EST us Generic External Data Provider LAB BLOOD ORDERAB LES Final Result Performing Organization Address [facility] Co de Phone Number [facility] [address] [place] [phone] * Protein Creatinine Ratio, Urine (12/29/2024 12:09 PM EST) Creatinine, Urine 186.84 mg/dL [facility] Protein, Total, Random Urine 12 <12 mg/dL [facility] Protein/Creati nine Ratio, Ur 0.06 <0.2 [facility] Comment:The spot urine prote in:creatinine ratio may increase to 0.3during normal . 12/29/2024 12:0 9 PM EST 12/29/2024 12:29 PM EST us Generic External Data Provider LAB URINE ORDERAB LES Final Result [facility] [address] [place] [phone] [phone] from Last 3 Months Insurance [facility] [employer]AND[employer] [facility]-[facility] MED[employer] STAND ADULT * Guarantor: Marilyn Wells I Account Type Relation to Patient Date of Phone Billing Address Personal/Family Self [address] [place] [address] * Guarantor: Marilyn Wells I Account Type Relation to Patient Date of Phone Billing Address Personal/Family Self [address] [place] [address] * Guarantor: Marilyn Wells I Account Type Relation to Patient Date of Phone Billing Address Personal/Family Self [address] [place] [address]
== END 2025-02-02 14:12 | disposition home or self-care (01) ==
LOC: HO.MAMMO 14:11
PROVIDERS: PCP Student in an Organized Health Care Education/Training Program; Visit Provider Student in an Organized Health Care Education/Training Program
DX: Z12.31 Encounter for screening mammogram for malignant neoplasm of breast (principal)
CPT/HCPCS: 77063; 77067

== ENCOUNTER → 2025-02-02 15:00 | Outpatient (BNV) | payer OTHER, SELFPAY | PROVIDERS: PCP Student in an Organized Health Care Education/Training Program; Visit Provider Internal Medicine | DX: Z12.31 Encounter for screening mammogram for malignant neoplasm of breast (principal) | CPT/HCPCS: 77063; 77067 ==

== ENCOUNTER 2025-02-10 10:52 | Outpatient (AMB) | payer OTHER, SELFPAY ==
--- NOTE | 2025-02-10 10:55 | MHC.OFFVIS ---
Vital Signs 02/10/25 11:06 Height 5 ft 6 in Weight 233 lb BMI 37.6 Intake Visit Reasons: OV- Right knee pain last inj 08/05/24 Intake Note: Marilyn is a 49 year old female who presents today for a follow up of right knee OA, last injection 08/05/24. Patient reports that she fell on ice the week of 12/14/24 and had landed directly on her right knee. She was seen by Rheumatology who referred for an MRI and was told inflamed tendon. She was also given an injection on 01/06/25, states this did not provide her with any relief. Her pain is located at the anterior aspect of knee. She continues the use of knee braces. Allergies No Known Allergies Allergy (Verified 02/10/25 11:03) HPI HPI OV- Right knee pain last inj 08/05/24: Details: 50-year-old female returns to the office today for follow-up right knee pain. She last saw me in August of 2024 where she had an injection which was quite helpful. In the middle of December she slipped and fell on ice landing directly on the anterior portion of her knee. She did have a follow-up with Rheumatology on January 06 where she was evaluated and given a steroid injection. She states the injection was helpful for approximately 2 days. An MRI of the right knee was also ordered at that visit. She states since the fall she has difficulty straightening and bending the knee. She has pain with going up and downstairs. The pain is located directly under the patella. [facility] Medical History Non-ST elevated myocardial infarction (non-STEMI) CAD (coronary artery disease) Smoker Dvt femoral (deep venous thrombosis) Gout GERD (gastroesophageal reflux disease) Vertigo Asthma Migraine Anxiety and depression Fibromyalgia Neuropathy H/O Sjogren's disease Discoid lupus Lupus Surgical History S/P cardiac catheterization Hx of hysterectomy Hx of thumb surgery Hx of knee surgery Family History Other Arthritis Lupus Social History Household Members: Family Housing: Apartment Do you presently have visiting nurse or other home services: No Alcohol intake: former Patient Tobacco Use Status: Current everyday Tobacco user Tobacco use type: Cigarette Cigarette Packs Per Day: 0.5 Cigarettes Per Day: 10.0 service: No Current occupational status: unemployed Review of Systems Const All systems reviewed & are unremarkable except as noted in HPI and below Physical Exam Vital Signs: BMI result Body Mass Index 37.6 Extrem Other: Right knee is normal to inspection. No joint effusion present. She has no open wounds or abrasion. She does have tenderness directly over the anterior portion of the patella. No tenderness over the quad tendon or patellar tendon. No ligamentous laxity. She has full range of motion. Calf supple and nontender neurovascularly intact. Results Reviewed Results Reviewed: MR knee RT wo con IMPRESSION: 1. Tendinosis of the distal quadriceps and proximal patellar tendons without change. 2. Mild thinning of the cartilage of the medial femoral condyle without change. 3. Small suprapatellar joint effusion. Assessment & Plan Assessment & Plan (1) Osteoarthritis of right knee: Code(s): M17.11 - Unilateral primary osteoarthritis, right knee Category: Medical Qualifiers: Osteoarthritis type: primary Qualified Code(s): M17.11 - Unilateral primary osteoarthritis, right knee Plan: We discussed options today which includes anti-inflammatory use. She is on Brilinta and aspirin therefore we are not going to add any additional NSAIDs. She was given a prescription for Voltaren gel which she can use 4 times a day. I also put in a referral for gel injections for the right knee which she has had in the past and states they were helpful. She will continue to modify activities as needed. I did recommend physical therapy which she declined. She will see me back once the injections Coding Level of Care Code Est Pt Level 3 (90830) Complex EM visit Add On G2211 Diagnoses Primary osteoarthritis of right knee M17.11 Osteoarthritis type: primary
[2025-02-10 11:06] VITALS: BMI 37.6
--- OUTSIDE RECORDS SUMMARY | 2025-02-10 12:40 | XMS_ITS | Encounter Summary ---
Author Organization [employer] [facility] Address [address] [place] [address] [address] [place] [address] Care Team Providers Care Synthetic Resin Operator Name Role Phone Unavailable Primary Care Provider Unavailabl e Reason for Visit * Reason Comments Med Refill Encounter Details Date Type Department Care Team (Late st Contact Info) Description 06/23/2024 Refill [facility]ULT D[facility] [address] [place] [address] Pop Oneil DDS [address], [place] [phone] Social History Tobacco Use Types Packs/Day Years [...]
--- OUTSIDE RECORDS SUMMARY | 2025-02-10 12:40 | XMS_ITS | Clinical Summary ---
Demographics Address [address] [facility] [address] [place] [address] Work Phone Home Phone Mobile Phone Preferred Language es Marital Status Single Zoroastrian Affiliation Unknown Race Other Race Ethnic Group or Author Organization [employer] [facility] Address [address] [facility] [address] [place] [address] Care Team Providers Care Technical Training Manager Name Role Phone Unavailable Primary Care Provider [...] Sod Fluoride-Potassiu m Nitrate 1.1-5 % paste Willard teeth for 2 minutes, morning and night. Spit, do not rinse. Do not eat or drink anything for 30 minutes following brushing. 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 Localized gingival recession 12/27/2023 Periodontal disease 12/27/2023 Dental calculus 12/27/2023 Encounters Date Type Department Care Team Description 01/25/2025 Orders Only [facility] External Provider, [facility] from Last 3 Months Immunizations Name Administration [...] 1998 Cervical Cancer Screening 2007 HPV/Cotest 2007 Dental Oral Exam 06/10/2024 12/10/2023, , 04/20/2016, Additional history exists Dental Prophylaxis 06/27/2024 12/27/2023, 1 12/21/2017, 04/17/2018, Additional history exists COVID-19 Vaccine ( season) 2024 01/03/2023, 09/20/2021, 01/24/2021, Additional history exists Dental X-Ray: Bitewings 02/07/2025 02/07/20, 12/10/2023, 11/29/2023, Additional history exists Tobacco Screening 03/23/2025 03/23/2024 Dental X-Ray: Full Mouth 12/11/2026 024, 11/24/2015, 10/10/2015 Mammogram 02/02/2027 02/02/2025 DTaP/Tdap/Td Vaccines (3 - Td or Tdap) [...] Procedure Name Priority Date/Time Associated Diagnosis Comments BI MAMMOGRAM SCREENING TOMOSYNTHESIS BILATERAL Routine 02/02/2025 2:20 PM EDT KNEE WO CONTRAST RIGHT Routine 01/25/2025 5:45 [...] Recently Relevant to Health Maintenance Results * BI Mammogram Screening Tomosynthesis Bilateral (02/02/2025 2:20 PM EDT) Anatomical Region Laterality Modality Breast Bilateral Mammography 02/02/2025 2:20 PM EDT Narrative 02/02/2025 5:43 PM EDT ? [facility] ? [address] ?[place] [address] ?[phone] ? Mammography Report ? Signed ? Patient: Russell,Marilyn I ?MR#: [id number] ?? [id number] ? : 1975 ?Acct:[id number] ? Age/Sex: 49 / F ?ADM Date: 04/01/25 ? Loc: HO.MAMMO ? Attending Dr: Jerri Antunez MD ? Ordering Physician: Jerri Daniel MD ? Results: 0Incomplete: Needs Additional Imaging ?? Evaluation ? Date of Service: 02/02/25 ?Follow Up: Additional Imagi ?? ng ? Procedure(s): MM tomosynthesis screening BI ?? Accession Number(s): [id number] ? cc: Jerri Daniel MD; Rebecca Perez MD ? EXAMINATION: ?? MM SCREENING DIGITAL BREAST TOMOSYNTHESIS, BILATERAL ? CLINICAL INFORMATION: ? Screening. Asymptomatic. ? COMPARISON: ?? Mammography: Comparison is made with available priors ? TECHNIQUE: ?? Digital breast mammography with tomosynthesis is performed in both the ?? craniocaudal and mediolateral oblique views along with computer-aided ?? detection (CAD). ? FINDINGS: ?? There are scattered areas of fibroglandular density (ACR BI-RADS breast ?? composition Category b). ? There are no significant masses, abnormal calcifications, or other ?? abnormalities. ? MM/MM tomosynthesis screening BI ?? IMPRESSION: ?? No mammographic evidence of malignancy. ?? Patient has left clear and milky discharge was the first time happened ?? during the exam. ?? Recommend clinical evaluation and a diagnostic ultrasound can be ?? ordered and performed. ? ASSESSMENT: ? BI-RADS BI-RADS 0 - Incomplete: Needs additional Imaging. ? RECOMMENDATION: ?? 1. Additional ultrasound of the left breast ?? Radiology department staff will contact the patient for additional ?? imaging. ? Additional Imaging required ? This examination should not preclude the clinical evaluation of a ?? suspicious palpable abnormality. ? This patient's information was entered into a reminder system with a ?? target due date for their next mammogram. ? Electronically signed by: ??Pepper Guzman DO ??02/02/2025 05:40 PM EDT ? Dictated By: ?Pepper Guzman DO ? Signed By: ?<Electronically signed by Pepper Guzman, DO in OV> ? 02/02/25 1740 ? DD/ 1420 ? TD/TT: 02/02/25 1441 ? Tool Shaper Set Up Operator: ? Procedure Note Juan Gill - 02/04/2025 [facility] [address] [place] [address] Mammography Report Signed Patient: Marilyn Wells IMR#: [id number] : 1975Acct:[id number] Age/Sex: 49 / FADM Date: 02/02/25 Loc: HO.MAMMO Attending Dr: Jerri Antunez MD Ordering Physician: Jerri Daniel MD Results: 0Incomplete: Needs Additional Imaging Evaluation Date of Service: 02/02/25Follow Up: Additional Imagi ng Procedure(s): MM tomosynthesis screening BI Accession Number(s): [id number] cc: Jerri Daniel MD; Rebecca Perez MD EXAMINATION: MM SCREENING DIGITAL BREAST TOMOSYNTHESIS, BILATERAL CLINICAL INFORMATION: Screening. Asymptomatic. COMPARISON: Mammography: Comparison is made with available priors TECHNIQUE: Digital breast mammography with tomosynthesis is performed in both the craniocaudal and mediolateral oblique views along with computer-aided detection (CAD). FINDINGS: There are scattered areas of fibroglandular density (ACR BI-RADS breast composition Category b). There are no significant masses, abnormal calcifications, or other abnormalities. MM/MM tomosynthesis screening BI IMPRESSION: No mammographic evidence of malignancy. Patient has left clear and milky discharge was the first time happened during the exam. Recommend clinical evaluation and a diagnostic ultrasound can be ordered and performed. ASSESSMENT: BI-RADS BI-RADS 0 - Incomplete: Needs additional Imaging. RECOMMENDATION: 1. Additional ultrasound of the left breast Radiology department staff will contact the patient for additional imaging. Additional Imaging required This examination should not preclude the clinical evaluation of a suspicious palpable abnormality. This patient's information was entered into a reminder system with a target due date for their next mammogram. Electronically signed by: Pepper Guzman DO 02/02/2025 05:40 PM EDT Dictated By: Pepper Guzman DO Signed By: <Electronically signed by Pepper Guzman DO in OV> 02/02/25 1740 DD/ 1420 TD/TT: 02/02/25 1441 Tool Shaper Set Up Operator: [facility] External Provider IMG BI PROCEDURES Edited Result - Final * MR Knee w/o Contrast Right (01/25/2025 5:45 PM EDT) Anatomical Region Laterality Modality Magnetic Resonan ce 01/25/2025 5:45 PM EDT Narrative 01/26/2025 10:12 AM EDT ? [facility] ?[address] ?[place] [address] ? Magnetic Resonance Report ? Signed ? Patient: Russell,Marilyn I ?MR#: [id number] ?? [id number] ? : 1975 ?Acct:[id number] ? Age/Sex: 49 / F ?ADM Date: 03/24/25 ? Loc: HO.MRI ? Attending Dr: Archana Donald MD ? Ordering Physician: Archana Donald MD ?? Date of Service: 01/25/25 ?? Procedure(s): MR knee RT wo con ?? Accession Number(s): [id number] ? cc: Archana Donald MD; Rebecca Perez [...] DD/ 1745 ? TD/TT: 01/25/25 1810 ? Tool Shaper Set Up Operator: ? Procedure Note Donotuseinterpreter, Image - 01/26/2025 [place] [id number] Magnetic Resonance Report Signed Patient: Marilyn Wells IMR#: [id number] : 1975Acct:[id number] Age/Sex: 49 / FADM Date: 01/25/25 Loc: HO.MRI Attending Dr: Archana Donald MD Ordering Physician: Archana Donald MD Date of Service: 01/25/25 Procedure(s): MR knee RT wo con Accession Number(s): [id number] cc: Archana Donald MD; Rebecca Perez MD [...] Conway MD in OV> 01/26/25 1009 DD/ 0725 TD/TT: 01/25/25 1810 Tool Shaper Set Up Operator: [facility] External Provider IMG MRI PROCEDURES Edited Result - Final * Culture, Urine, Routine (01/06/2025 2:00 PM EST) Urine Urine specimen obtained by clean catch procedure / Unknown 01/06/2025 2:00 PM EST 01/06/2025 3:23 PM EST Comment:UACC Narrative [facility] - 01/08/2025 12:08 PM EST Urine Culture Report Result Urine Culture 10,000 to 50,000 cfu/ml Urine Culture Mixed bacterial jyoti characteristic of Urine Culture urogenital contamination. Specimen Source: Urine clean catch Generic External Data Provider LAB MICROBIOLOGY - GENERAL ORDERABLES Final Result [facility] [address] [place] [address] [phone] * DNA (ds) Antibody (12/29/2024 12:17 PM EST) Anti DNA DS Antibody 3 IU/mL [facility] Comment:IU/mL Interpretation < or = 4 Negative 5-9 Indeterminate > or = 10 PositiveTHIS TEST WAS PERFORMED AT:[facility] [place] [id number] PAREDES MD 12/29/2024 12:1 7 PM EST 12/29/2024 12:17 PM EST Generic External Data Provider LAB BLOOD ORDERAB LES Final Result Performing Organization Address [facility] Co de Phone Number [facility] [address] [place] [phone] * Complement Component C3c (12/29/2024 12:17 PM EST) Complement C3 127 83 - 193 mg/dL [facility] Comment:THIS TEST WAS PERFOR MED AT:[employer] [facility] [employer] [address] [phone] PAREDES MD 12/29/2024 12:1 7 PM EST 12/29/2024 12:17 PM EST Generic External Data Provider LAB BLOOD ORDERAB LES Final Result Performing Organization Address [facility] de Phone Number [facility] [address] [place] [phone] * Complement Component C4c (12/29/2024 12:17 PM EST) Complement C4 28 15 - 57 mg/dL [facility] Comment:THIS TEST WAS PERFOR MED AT:[employer] [address] [phone] PAREDES MD 12/29/2024 12:1 7 PM EST 12/29/2024 12:17 PM EST Generic External Data Provider LAB BLOOD ORDERAB LES Final Result Performing Organization Address [facility] de Phone Number [facility] [address] [place] [phone] * Protein Creatinine Ratio, Urine (12/29/2024 12:09 PM EST) Creatinine, Urine 186.84 mg/dL [facility] Protein, Total, Random Urine 12 <12 mg/dL [facility] Protein/Creati nine Ratio, Ur 0.06 <0.2 [facility] Comment:The spot urine prote in:creatinine ratio may increase to 0.3during normal . 12/29/2024 12:0 9 PM EST 12/29/2024 12:29 PM EST us Generic External Data Provider LAB URINE ORDERAB LES Final Result [facility] [address] [place] [address] [phone] from Last 3 Months Insurance * Guarantor: Marilyn Wells I Account Type Relation to Patient Date of Phone Billing Address Personal/Family Self [address] [place] [address] [facility] STANDARD DENTAL-[facility] MEDICAID STAND ADULT * Guarantor: Marilyn Wells I Account Type Relation to Patient Date of Phone Billing Address Personal/Family Self [address] [place] [address] * Guarantor: Marilyn Wells I Account Type Relation to Patient Date of Phone Billing Address Personal/Family Self [address] [place] [address] * Guarantor: Marilyn Wells I Account Type Relation to Patient Date of Phone Billing Address Personal/Family Self [address] [place] [address]
--- OUTSIDE RECORDS SUMMARY | 2025-02-10 12:41 | XMS_ITS | Continuity of Care Document ---
Author Organization [facility] Address [address] [place] [address]- Care Team Providers Care Cook Specialty Foreign Food Name Role Phone Bernabe MEHTA, Broderick Primary Care Physician [phone] Encounter [facility] Date(s): 01/05/25 - 02/04/25 [facility] [address] [place] [address]- Encounter Type: Triage Allergies, Adverse Reactions, Alerts [...] 04/25/23 Given tetanus/diphtheria/pertussis, acel(Tdap) 3 01/28/13 Given [id number] bivalent booster vax 01/03/23 Recorded SARS-CoV-2 (COVID-19) [...] 07/05/08 Recor ded 1Result Comment: received at [facility] in [place] 2Admin Note: flulaval vis given vis date [...] 3 Refills, Maintenance, 12/02/24 5:10:00 PM EST, [facility], cm, 12/02/24 16:39:00 EST, Height, 108.1, kg,10/16/24 8:53:00 EST, Dry Weight Start Date: 12/02/24 Status: Ordered Quantity: 100.0 Unit: tablet Repeat number: 4 Ajovy Autoinjector 225 mg/1.5 mL subcutaneous solution = 225 mg, Subcutaneous Injection, Every 28 days, # 1 kit, 5 Refills, Maintenance, 01/20/25 6:57:00 AM EDT, [facility], Partial fill upon patient [...] 5:29:00 PM EDT, Route to Pharmacy Electronically, [facility]/pharmacy #[id number], Partial fill upon [...] 9:24:00 AM EST, Route to Pharmacy Electronically, [id number], 173, cm, 10/16/24 8:53:00 EST, Height, 108.1, kg, 10/16/24 8:53:00 EST, Dry Weight Start Date: 10/16/24 Status: Ordered Quantity: 90.0 Unit: tablet Repeat number: 1 ammonium lactate 5% topical lotion 1 application, Topically, 2 times a day, PRN Dry Skin, apply and rub in well, # 120 Gm, 0 Refills, Maintenance, 12/05/22 5:09:00 PM EST, Lotion, [facility]/pharmacy #[id number], Partial fill upon [...] By Mouth, Daily, REFILLS PER PCP OR CENTRIFUGAL MACHINE TENDER, # 90 tablet, 2 Refills, Maintenance, 01/06/25 11:31:00 AM EST, [facility], 173, cm, 12/02/24 16:39:00 EST, Height, 108.1, kg, 10/16/24 8:53:00 EST, Dry Weight Start Date: 01/06/25 Status: Ordered Quantity: 90.0 Unit: tablet Repeat number: 1 atorvastatin 80 mg oral tablet = 80 mg, By Mouth, Daily at bedtime, # 90 capsule, 3 Refills, Maintenance, 11/02/24 1:22:00 PM EST,Tablet, [facility]/pharmacy #[id number], Partial fill upon [...] 5 Refills, Maintenance, 11/02/24 1:23:00 PM EST, [facility]/pharmacy #[id number], 173, cm, 11/02/24 13:12:00 [...] 1 Refills, Maintenance, 01/12/25 7:51:00 AM EDT, [facility], 25, APPLY TOPICALLY FOUR TIMES A DAYAS [...] 11 Refills, Maintenance, 01/28/25 6:09:00 PM EDT, [facility], Partial fill upon patient request if the [...] 2:26:00 PM EST, Route to Pharmacy Electronically, [facility], 173, cm, 12/02/24 16:39:00 EST, Height, 108.1, kg, 10/16/24 8:53:00 EST, Dry Weight Start Date: 01/01/25 Status: Ordered Quantity: 180.0 Unit: tablet Repeat number: 2 lidocaine 5% topical film 1 patch, Topically, Daily, PRN NEEDED FOR PAIN MILD, REMOVE AFTER 12 HOURS, # 30 patch, 0 Refills, Maintenance, 02/05/23 11:52:00 PM EDT, [id number], 30, APPLY 1 PATCH TOPICALLY DAILY,X30 DAYS [...] 2:48:00 PM EST, Route to Pharmacy Electronically, [id number], 165.1, cm, 12/05/22 15:21:00 EST, Height Start Date: 12/31/22 Stop Date: 01/30/23 Status: Ordered Quantity: 60.0 Unit: tablet Repeat number: 1 losartan 50 mg oral tablet 1 tablet, By Mouth, Daily, # 90 tablet, 1 Refills, Maintenance, 09/16/24 10:17:00 AM EST, [facility]/pharmacy #[id number], 173, cm, 08/19/24 12:16:00 EDT, Height, 101.4, kg, 04/27/24 14:38:00 EDT, Dry Weight Start Date: 09/16/24 Status: Ordered Quantity: 90.0 Unit: tablet Repeat number: 2 meclizine 25 mg oral tablet 1 tablet, By Mouth, 2 times a day, PRN NEEDED FOR DIZZINESS, # 60 tablet, 3 Refills, Maintenance, 01/28/25 5:58:00 PM EDT, [facility]., 173, cm, 01/28/25 17:21:00 EDT, Height, [...] Maintenance, 01/28/25 5:58:00 PM EDT, REC Powder, [facility], Partial fill upon patient request if the [...] 2 Refills, Maintenance, 11/09/24 11:02:00 AM EST, [facility]/pharmacy #[id number], 173, cm, 11/02/24 13:28:00 EST, Height, 108.1, kg, 10/16/24 8:53:00 EST, Dry Weight Start Date: 11/09/24 Status: Ordered Quantity: 30.0 Unit: tablet Repeat number: 3 Myrbetriq 50 mg oral tablet, extended release 1 tablet, By Mouth, Daily, DO NOT CRUSH OR CHEW., # 30 tablet, 11 Refills, Maintenance, 11/13/24 12:20:00 PM EST, [facility], 173, cm, 11/02/24 13:28:00 EST, Height, 108.1, kg, 10/16/24 8:53:00 EST, Dry Weight Start Date: 11/13/24 Status: Ordered Quantity: 30.0 Unit: tablet Repeat number: 12 naratriptan 2.5 mg oral tablet See Instructions, TAKE 1 TABLET BY MOUTH EVERY DAY NEEDED FOR MIGRAINE, MAY REPEAT DOSE AFTER 4 HOURS NEEDED, # 18 tablet, 2 Refills, Maintenance, 01/01/25 9:12:00 PM EST, [facility], 173, cm, 12/02/24 16:39:00 EST, Height, 108.1, [...] AM EDT, 08/10/24 11:26:00 AM EDT, Patch, [facility]/pharmacy #[id number], Partial fill upon [...] 0 Refills, Maintenance, 09/23/23 10:53:00 AM EST, [facility]ORE [id number], 165, cm, 09/12/23 13:12:00 EST, Height, 100, kg, 04/04/23 16:15:00 EDT, Dry Weight Start Date: 09/23/23 Status: Ordered Quantity: 30.0 Unit: tablet Repeat number: 1 pantoprazole 20 mg oral delayed release tablet = 20 mg, By Mouth, Daily, Take for next 12 months while taking aspirin and Brillinta. Refill per PCP or Channel Rebuilder., # 90 tablet, 3 Refills, Maintenance, 11/02/24 [...] 0 Refills, Maintenance, 01/28/25 6:06:00 PM EDT, [facility], dose reduced to 150mg bid 08/17/24., 173, [...] Maintenance, 12/08/24 2:34:00 PM EST, [id number], 173, cm, 12/02/24 16:39:00 EST, Height, 108.1, [...] 11:21:00 AM EST, Route to Pharmacy Electronically, [id number], [facility]/pharmacy #[id number], 173, cm, 12/02/24 16:39:00 EST, Height, 108.1, kg, 10/16/24 8:53:00 EST, Dry Weight Start Date: 12/24/24 Status: Ordered Quantity: 30.6 Unit: each Repeat number: 6 Ventolin HFA 108 mcg/inh inhalation aerosol with adapter 2 puffs, Inhalation, Every 6 hours, PRN NEEDED FOR WHEEZE OR FOR SHORTNESS OF BREATH, # 18 each,5 Refills, Maintenance, 11/27/24 4:28:00 PM EST, [facility], 173, cm, 11/02/24 13:28:00 EST, Height, 108.1, kg, 10/16/24 8:53:00 EST, Dry Weight Start Date: 11/27/24 Status: Ordered Quantity: 18.0 Unit: each Repeat number: 6 Vitamin B-12 1000 mcg oral tablet See Instructions, TAKE 1 TABLET BY MOUTH EVERY DAY, # 90 tablet, Refills 0, Maintenance, 12/04/24 1:50:00 PM EST, Instructions Replace Required Details, Route to Pharmacy Electronically, [facility], 173, cm, 12/02/24 16:39:00 EST, Height, 108.1, [...] 0 Refills, Maintenance, 08/26/24 11:05:00 AM EDT, [id number], Partial fill upon patient request if the [...] Refills, Maintenance, 10/30/24 3:09:00 PM EST, Solution, [facility]., patient going to d/kelly kaye, 173, cm, 10/16/24 8:53:00 EST, Height, 108.1, kg, 10/16/24 8:53:00 EST, Dry Weight Start Date: 10/30/24 Status: Ordered Quantity: 4.0 Unit: each Repeat number: 1 Zepbound 5 mg/0.5 mL subcutaneous solution = 5 mg, Subcutaneous Injection, Every week, rotate injection sites, # 4 each, 1 Refills, Maintenance, 11/02/24 1:19:00 PM EST, Solution, [facility], Partial fill upon patient request if the [...] 5 Refills, Maintenance, 01/28/25 6:00:00 PM EDT, [facility], dose increase to 10mg 01/28/25., 173, cm, 01/28/25 17:21:00 EDT, Height, 108.1, kg, 10/16/24 8:53:00 EST, Dry Weight Start Date: 01/28/25 Status: Ordered Quantity: 4.0 Unit: each Repeat number: 6 Zepbound Pen 7.5 mg/0.5 mL subcutaneous solution = 7.5 mg, Subcutaneous Infusion, Every week, # 4 each, 2 Refills, Maintenance, 12/02/24 5:08:00 PM EST, [facility]., dose increase to 7.5mg 12/02/24, 173, [...] Active 1Follows with therapist and psychiatrist at [place] per previous notes 2PFTs show no obstruction. However has h/o asthma. Ct chest in 07/27 and pulm note says restrictive lung disease mild similiar to findings on PFT 3Follows with therapist and psychiatrist at [place] per previous notes 4Sleep study in 2016. [...] Care Nurse Name: Broderick Kidd MD Position: [facility] Resident Member Role: PCP Address: [address] [place] [address] [place] [address]- Telecom: Care Team Related Persons Name: MARIO GERARD Name: CARI GARCÍA Name: NOELLE MAY Insurance Providers Guarantor name: TAYLOR MARTIN [facility] Plan Information #: 1 Payer: [employer] [facility] Member Number: NA Policy Number: NA Group Number: [id number]
== END 2025-02-10 11:56 | disposition home or self-care (01) ==
LOC: HO.HOS 10:52
PROVIDERS: PCP Student in an Organized Health Care Education/Training Program; Visit Provider Physician Assistant
DX: M17.11 Unilateral primary osteoarthritis, right knee (principal)
CPT/HCPCS: 99213; G2211

== ENCOUNTER → 2025-02-10 10:52 | Outpatient (BNVA) | payer OTHER, SELFPAY | PROVIDERS: PCP Student in an Organized Health Care Education/Training Program; Visit Provider Physician Assistant | DX: M17.11 Unilateral primary osteoarthritis, right knee (principal) | CPT/HCPCS: 99212 ==

== ENCOUNTER 2025-02-16 12:54 | Outpatient (AMB) | payer OTHER, SELFPAY ==
[2025-02-16 12:59] VITALS: BP 154/80; PULSE 94; BMI 37.0
--- NOTE | 2025-02-16 12:59 | MHC.OFFVIS ---
Vital Signs 02/16/25 12:59 Height 5 ft 6 in Weight 229 lb 4.492 oz BMI 37.0 BP 154/80 H Blood Pressure Location Lt brachial Position Sitting Pulse 94 Intake Visit Reasons: 6m follow up Intake Note: 6 month follow-up c/o sob with walking a lot Road Grader Required: No Allergies No Known Allergies Allergy (Verified 02/10/25 11:03) Medication List - Last Reconciled 02/16/25 by Petar Robles MD acetaminophen 1,000 mg PO Q8H PRN albuterol sulfate 2.5 mg inhalation Q6H PRN albuterol sulfate 90 mcg/actuation (Ventolin HFA) 2 puffs inhalation Q6H PRN amitriptyline 10 mg PO BEDTIME arm brace (DAMON Elbow Brace) as directed aspirin 81 mg PO DAILY atorvastatin 80 mg PO DAILY betamethasone dipropionate 0.05% 1 appl topical BID PRN budesonide-formoterol 80-4.5 mcg/actuation (Symbicort) 1 puff inhalation BID PRN cetirizine 10 mg PO DAILY@1500 ciclopirox 1% 1 ea topical Q7D PRN clobetasol 0.05% 1 appl topical BID clonazepam 1 mg PO TID PRN clonidine HCl 0.1 mg PO 3XD PRN CPAP As directed cyanocobalamin (vitamin B-12) (Vitamin B-12) 1,000 mcg PO DAILY cyclobenzaprine 5 - 10 mg (1 - 2 x 5 mg) PO BEDTIME diclofenac sodium 1% 1 g topical QID PRN duloxetine 30 mg PO DAILY famotidine 20 mg PO BID fexofenadine 180 mg PO DAILY fluocinonide 0.05% 1 appl topical BID PRN fremanezumab-vfrm (Ajovy) 225 mg subcut QMONTH hydrochlorothiazide 25 mg PO DAILY hydrocortisone 2.5% 1 appl topical DAILY PRN hydroxychloroquine 200 mg PO BID loratadine 10 mg PO DAILY losartan 50 mg PO DAILY meclizine 25 mg PO TID PRN mirabegron ER (Myrbetriq) 50 mg PO DAILY montelukast 10 mg PO QPM naratriptan 2.5 mg PO DAILY PRN neomycin-polymyxin B-dexameth 3.5mg/mL-10,000 unit/mL-0.1 % 1 drp ophthalmic (eye) QID nicotine 1 patch topical DAILY nitroglycerin 0.4 mg sublingual Q5M omeprazole 20 mg PO DAILY ondansetron HCl 8 mg PO TID PRN pantoprazole 20 mg PO DAILY pilocarpine HCl 5 mg PO BID PRN pregabalin 200 mg PO BID riboflavin (vitamin B2) 400 mg PO DAILY risperidone 2 mg PO BEDTIME rizatriptan 10 mg PO DAILY PRN sodium fluoride-pot nitrate 1.1-5 % 1 appl PO BID ticagrelor (Brilinta) 90 mg PO BID tirzepatide (weight loss) (Zepbound) mg subcut HPI Comments Details: Marilyn comes for follow-up, accompanied by significant other. She complains of exertional shortness of breath. He said this is different than her asthma very usually she feels chest tightness. Her blood pressure is elevated today. She says she uses his CPAP as well as takes all her medications. Denies any orthopnea, PND, any significant chest discomfort. Takes dual antiplatelet therapy. Denies any prolonged palpitation irregular heartbeat. No lightheadedness, syncope. [facility] Medical History Non-ST elevated myocardial infarction (non-STEMI) CAD (coronary artery disease) Smoker Dvt femoral (deep venous thrombosis) Gout GERD (gastroesophageal reflux disease) Vertigo Asthma Migraine Anxiety and depression Fibromyalgia Neuropathy H/O Sjogren's disease Discoid lupus Lupus Surgical History S/P cardiac catheterization Hx of hysterectomy Hx of thumb surgery Hx of knee surgery Family History Other Arthritis Lupus Social History Household Members: Family Housing: Apartment Do you presently have visiting nurse or other home services: No Alcohol intake: former Patient Tobacco Use Status: Current everyday Tobacco user Tobacco use type: Cigarette Cigarette Packs Per Day: 0.5 Cigarettes Per Day: 10.0 service: No Current occupational status: unemployed Review of Systems Const Denies chills, Denies fatigue, Denies fever(s), Denies frequent falls, Denies weakness, Denies weight gain and Denies weight loss ENT Denies dizziness Card Denies chest pain, Denies leg edema, Denies lightheadedness, Denies palpitations, Denies dyspnea, Denies dyspnea on exertion, Denies orthopnea and Denies other (loss of consciousness) Resp Denies cough, Denies dyspnea and Denies dyspnea on exertion GI Denies hematochezia and Denies change in stool character Musc Denies abnormal gait, Denies muscle weakness, Denies numbness, Denies radiating pain into limb and Denies tingling Neuro Denies abnormal gait, Denies dizziness, Denies frequent falls, Denies numbness, Denies tingling and Denies weakness Endo Denies fatigue and Denies palpitations Physical Exam Vital Signs: Last Vital Signs Pulse 94 02/16/25 12:59 BP 154/80 H 02/16/25 12:59 BMI result Body Mass Index 37.0 Const General: cooperative, comfortable, no acute distress, alert and awake Nutritional Appearance: obese morbidly obese Orientation/consciousness: patient oriented x3 Neck Neck: Yes trachea midline, Yes supple and Yes no JVD Resp Effort & Inspection: normal respiratory effort Auscultation: clear to auscultation bilaterally and diminished lung sounds Cardio Jugular venous distension: no JVD Palpation: normal PMI Rate: regular rate Rhythm: regular rhythm Heart sounds: S1 normal heart sound present, S2 normal heart sound present, no click, no gallops and no murmurs GI Auscultation: normal bowel sounds Skin General skin exam: no rashes or lesions noted Neuro General: patient oriented x3 and no focal motor deficits Extrem General: Yes no clubbing, cyanosis or edema Assessment & Plan Assessment & Plan (1) CAD (coronary artery disease): Code(s): I25.10 - Atherosclerotic heart disease of [place] coronary artery without angina pectoris Category: Medical Plan: CAD with prior drug-eluting stent to the LAD territory. Patient currently having symptoms exertional shortness of breath, see below. Otherwise continue dual antiplatelet therapy for total of 1 year till April of 2025. Lifelong aspirin therapy beyond that. Continue high-intensity statin therapy with target goal LDL less than 70 mg/dL. Long discussion about complete smoking cessation. She understands agrees. Currently wearing a patch and smoking. I advised against the same. Continue participate in regular physical activity and weight loss program. (2) HTN (hypertension): Code(s): I10 - Essential (primary) hypertension Category: Medical Plan: Hypertension in the past had low blood pressure but currently elevated blood pressure. She says she uses his CPAP regularly. Advised to continue the same. Continue low-salt diet. Will increase losartan to 100 mg daily. Advised to monitor blood pressure at home maintain a log. Goal blood pressure less than 130/84. (3) Short of breath on exertion: Code(s): R06.02 - Shortness of breath Category: Medical Plan: Shortness of breath on exertional which is recent increased. She said this is not similar to her asthma. Will suggest an echocardiogram and exercise myocardial perfusion imaging to evaluate further. Further treatment based on the findings. Will follow up in the clinic in 2 months time, sooner p.r.n.. Thank you for allowing me to partake in his care Orders: Orders CA stress test Today R06.02 - Shortness of breath NM cardiolite stress test 2 Weeks R06.02 - Shortness of breath, R07.9 - Chest pain, unspecified CA echo transthoracic complete Today R06.02 - Shortness of breath Medications: New losartan 100 mg PO DAILY 30 tabs 5RF R06.02 - Shortness of breath Coding Level of Care Code Est Pt Level 4 (97536) Complex EM visit Add On G2211 Diagnoses CAD (coronary artery disease) I25.10 HTN (hypertension) I10 Short of breath on exertion R06.02
--- OUTSIDE RECORDS SUMMARY | 2025-02-16 15:47 | XMS_ITS | Clinical Summary ---
Demographics Address [address] [facility] [address] [place] [address] Work Phone Home Phone Mobile Phone Preferred Language es Marital Status Single Mosque Affiliation Unknown Race Other Race Ethnic Group or Author Organization mobileo [facility] Address [address] [facility] [address] [place] [address] Care Team Providers Care Senior Ui Web Developer Name Role Phone Unavailable Primary Care Provider [...] Sod Fluoride-Potassiu m Nitrate 1.1-5 % paste [place] teeth for 2 minutes, morning and night. Spit, do not rinse. Do not eat or drink anything for 30 minutes following brushing. 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 [facility] [place] ? [address] ?[place] [address] ?[phone] ? Mammography Report ? Signed ? Patient: Russell,Marilyn I ?MR#: [id number] ?? [id number] ? : 1975 ?Acct:[id number] ? Age/Sex: 49 / F ?ADM Date: 04/01/25 ? Loc: HO.MAMMO ? Attending Dr: Jerri Antunez MD ? Ordering Physician: Jerri Daniel MD ? Results: 0Incomplete: Needs Additional Imaging ?? Evaluation ? Date of Service: 02/02/25 ?Follow Up: Additional Imagi ?? ng ? Procedure(s): MM tomosynthesis screening BI ?? Accession Number(s): [id number] ? cc: Jerri Daniel MD; Rebecca Perez [...] DD/ 1420 ? TD/TT: 02/02/25 1441 ? Diet Kitchen Cook: ? Procedure Note Juan Gill - 02/04/2025 [facility] [address] [place] [address] Mammography Report Signed Patient: Marilyn Wells IMR#: [id number] : 1975Acct:[id number] Age/Sex: 49 / FADM Date: 02/02/25 Loc: HO.MAMMO Attending Dr: Jerri Antunez MD Ordering Physician: Jerri Daniel MD Results: 0Incomplete: Needs Additional Imaging Evaluation Date of Service: 02/02/25Follow Up: Additional Imagi ng Procedure(s): MM tomosynthesis screening BI Accession Number(s): [id number] cc: Jerri Daniel MD; Rebecca Perez MD [...] 02/02/25 1740 DD/ 1420 TD/TT: 02/02/25 1441 Diet Kitchen Cook: [facility] External Provider IMG BI PROCEDURES Edited Result - Final * MR Knee w/o Contrast Right (01/25/2025 5:45 PM EDT) Anatomical Region Laterality Modality Magnetic Resonan ce 01/25/2025 5:45 PM EDT Narrative 01/26/2025 10:12 AM EDT ? [facility] ?[address] ?[place] [address] ? Magnetic Resonance Report ? Signed ? Patient: Russell,Marilyn I ?MR#: [id number] ?? [id number] ? : 1975 ?Acct:[id number] ? Age/Sex: 49 / F ?ADM Date: 03/24/25 ? Loc: HO.MRI ? Attending Dr: Archana Donald MD ? Ordering Physician: Archana Donald MD ?? Date of Service: 01/25/25 ?? Procedure(s): MR knee RT wo con ?? Accession Number(s): [id number] ? cc: Archana oDnald MD; Rebecca Perez MD ? EXAMINATION: MRI [...] DD/ 1745 ? TD/TT: 01/25/25 1810 ? Diet Kitchen Cook: ? Procedure Note Donotuseinterpreter, Image - 01/26/2025 [place] [address] Magnetic Resonance Report Signed Patient: Marilyn Wells IMR#: [id number] : 1975Acct:[id number] Age/Sex: 49 / FADM Date: 01/25/25 Loc: HO.MRI Attending Dr: Archana Donald MD Ordering Physician: Archana Donald MD Date of Service: 01/25/25 Procedure(s): MR knee RT wo con Accession Number(s): [id number] cc: Archana Donald MD; Rebecca Perez MD [...] Conway MD in OV> 01/26/25 1009 DD/ 8875 TD/TT: 01/25/25 1810 Diet Kitchen Cook: [facility] External Provider IMG MRI PROCEDURES Edited Result - Final * Culture, Urine, Routine (01/06/2025 2:00 PM EST) Urine Urine specimen obtained by clean catch procedure / Unknown 01/06/2025 2:00 PM EST 01/06/2025 3:23 PM EST Comment:UACC Narrative [facility] - 01/08/2025 12:08 PM EST Urine Culture Report Result Urine Culture 10,000 to 50,000 cfu/ml Urine Culture Mixed bacterial jyoti characteristic of Urine Culture urogenital contamination. Specimen Source: Urine clean catch Generic External Data Provider LAB MICROBIOLOGY - GENERAL ORDERABLES Final Result [facility] [address] [place] [phone] * DNA (ds) Antibody (12/29/2024 12:17 PM EST) Anti DNA DS Antibody 3 IU/mL [facility] Comment:IU/mL Interpretation < or = 4 Negative 5-9 Indeterminate > or = 10 PositiveTHIS TEST WAS PERFORMED AT:[employer] [place] [id number] PAREDES MD 12/29/2024 12:1 7 PM EST 12/29/2024 12:17 PM EST Generic External Data Provider LAB BLOOD ORDERAB LES Final Result Performing Organization Address [facility] Co de Phone Number [facility] [address] [place] [phone] * Complement Component C3c (12/29/2024 12:17 PM EST) Complement C3 127 83 - 193 mg/dL [facility] Comment:THIS TEST WAS PERFOR MED AT:[employer] [address] [id number] PAREDES MD 12/29/2024 12:1 7 PM EST 12/29/2024 12:17 PM EST Generic External Data Provider LAB BLOOD ORDERAB LES Final Result Performing Organization Address [facility] de Phone Number [facility] [address] [place] [phone] * Complement Component C4c (12/29/2024 12:17 PM EST) Complement C4 28 15 - 57 mg/dL [facility] Comment:THIS TEST WAS PERFOR MED AT:[employer] [address] [id number] PAREDES MD 12/29/2024 12:1 7 PM EST 12/29/2024 12:17 PM EST Generic External Data Provider LAB BLOOD ORDERAB LES Final Result Performing Organization Address [facility] de Phone Number [facility] [address] [place] [phone] * Protein Creatinine Ratio, Urine (12/29/2024 12:09 PM EST) Creatinine, Urine 186.84 mg/dL [facility] Protein, Total, Random Urine 12 <12 mg/dL [facility] Protein/Creati nine Ratio, Ur 0.06 <0.2 [facility] Comment:The spot urine prote in:creatinine ratio may increase to 0.3during normal . 12/29/2024 12:0 9 PM EST 12/29/2024 12:29 PM EST us Generic External Data Provider LAB URINE ORDERAB LES Final Result [facility] [address] [place] [phone] from Last 3 Months Insurance * Guarantor: Marilyn Wells I Account Type Relation to Patient Date of Phone Billing Address Personal/Family Self [address] [place] [address] [facility] STANDARD DENT[facility] MEDICAID STAND ADULT * Guarantor: Marilyn Wells I Account Type Relation to Patient Date of Phone Billing Address Personal/Family Self [address] [place] [address] * Guarantor: Marilyn Wells I Account Type Relation to Patient Date of Phone Billing Address Personal/Family Self [address] [place] [address] * Guarantor: Marilyn Wells I Account Type Relation to Patient Date of Phone Billing Address Personal/Family Self [address] [place] [address]
--- OUTSIDE RECORDS SUMMARY | 2025-02-16 15:47 | XMS_ITS | Continuity of Care Document ---
Author Organization [facility] Address [address] [place] [address]- Care Team Providers Care Appellate Conferee Name Role Phone Broderick Kidd MD Primary Care Physician [phone] [place] [facility] [place]): [place] - 02/12/25 [facility] [address] [place] [address]- Encounter Type: Triage Allergies, Adverse Reactions, Alerts No Known Allergies Immunizations Given and Recorded Vaccine Date Status Refusal Reason influenza virus vaccine, inactivated 07/09/24 Zachery rded influenza virus vaccine, inactivated 09/27/23 Give n influenza virus vaccine, inactivated 08/22/22 Give n influenza virus vaccine, inactivated 09/20/21 Give n influenza virus vaccine, inactivated 10/07/20 Zachery rded influenza virus vaccine, inactivated 09/07/20 Re corded influenza virus vaccine, inactivated [...] 04/25/23 Given tetanus/diphtheria/pertussis, acel(Tdap) 3 01/28/13 Given [id number] bivalent booster vax 01/03/23 Recorded SARS-CoV-2 (COVID-19) [...] 07/05/08 Recor ded 1Result Comment: received at [facility] on [facility] in [place] 2Admin Note: flulaval vis given vis date 05/05/2012 3Admin Note: VIS GIVEN VIS DATE 11/27/2011 4Result Comment: received 2nd dose at [facility] 5Result Comment: received at [facility] Medications acetaminophen 500 mg oral tablet 2 tablet, By Mouth, Every 8 hours, PRN NEEDED FOR PAIN, # 100 tablet, 3 Refills, Maintenance, 12/02/24 5:10:00 PM EST, [facility]., 173, cm, 12/02/24 16:39:00 EST, Height, 108.1, kg,10/16/24 8:53:00 EST, Dry Weight Start Date: 12/02/24 Status: Ordered Quantity: 100.0 Unit: tablet Repeat number: 4 Ajovy Autoinjector 225 mg/1.5 mL subcutaneous solution = 225 mg, Subcutaneous Injection, Every 28 days, # 1 kit, 5 Refills, Maintenance, 01/20/25 6:57:00 AM EDT, [facility], Partial fill upon [...] 5:29:00 PM EDT, Route to Pharmacy Electronically, [facility]/pharmacy #[id number], Partial fill upon patient [...] 9:24:00 AM EST, Route to Pharmacy Electronically, [facility] #[id number], 173, cm, 10/16/24 8:53:00 EST, Height, 108.1, kg, 10/16/24 8:53:00 EST, Dry Weight Start Date: 10/16/24 Status: Ordered Quantity: 90.0 Unit: tablet Repeat number: 1 ammonium lactate 5% topical lotion 1 application, Topically, 2 times a day, PRN Dry Skin, apply and rub in well, # 120 Gm, 0 Refills, Maintenance, 12/05/22 5:09:00 PM EST, Lotion, [facility]/pharmacy #[id number], Partial fill upon patient [...] By Mouth, Daily, REFILLS PER PCP OR HOSPITAL PRODUCT SPECIALIST, # 90 tablet, 2 Refills, Maintenance, 01/06/25 11:31:00 AM EST, [facility], 173, cm, 12/02/24 16:39:00 EST, Height, 108.1, kg, 10/16/24 8:53:00 EST, Dry Weight Start Date: 01/06/25 Status: Ordered Quantity: 90.0 Unit: tablet Repeat number: 1 atorvastatin 80 mg oral tablet = 80 mg, By Mouth, Daily at bedtime, # 90 capsule, 3 Refills, Maintenance, 11/02/24 1:22:00 PM EST,Tablet, [facility]/pharmacy #[id number], Partial fill upon patient [...] 5 Refills, Maintenance, 11/02/24 1:23:00 PM EST, [facility]/pharmacy #[id number], 173, cm, 11/02/24 13:12:00 [...] 1 Refills, Maintenance, 01/12/25 7:51:00 AM EDT, [facility], 25, APPLY TOPICALLY FOUR TIMES A [...] 11 Refills, Maintenance, 01/28/25 6:09:00 PM EDT, [facility], Partial fill upon patient request if [...] 2:26:00 PM EST, Route to Pharmacy Electronically, [facility], 173, cm, 12/02/24 16:39:00 EST, Height, 108.1, kg, 10/16/24 8:53:00 EST, Dry Weight Start Date: 01/01/25 Status: Ordered Quantity: 180.0 Unit: tablet Repeat number: 2 lidocaine 5% topical film 1 patch, Topically, Daily, PRN NEEDED FOR PAIN MILD, REMOVE AFTER 12 HOURS, # 30 patch, 0 Refills, Maintenance, 02/05/23 11:52:00 PM EDT, [facility] STORE [id number], 30, APPLY 1 PATCH TOPICALLY DAILY,X30 DAYS [...] 2:48:00 PM EST, Route to Pharmacy Electronically, [facility], 165.1, cm, 12/05/22 15:21:00 EST, Height Start Date: 12/31/22 Stop Date: 01/30/23 Status: Ordered Quantity: 60.0 Unit: tablet Repeat number: 1 losartan 50 mg oral tablet 1 tablet, By Mouth, Daily, # 90 tablet, 1 Refills, Maintenance, 09/16/24 10:17:00 AM EST, [facility]/pharmacy #[id number], 173, cm, 08/19/24 12:16:00 EDT, Height, 101.4, kg, 04/27/24 14:38:00 EDT, Dry Weight Start Date: 09/16/24 Status: Ordered Quantity: 90.0 Unit: tablet Repeat number: 2 meclizine 25 mg oral tablet 1 tablet, By Mouth, 2 times a day, PRN NEEDED FOR DIZZINESS, # 60 tablet, 3 Refills, Maintenance, 01/28/25 5:58:00 PM EDT, [facility]., 173, cm, 01/28/25 17:21:00 EDT, Height, 108.1,kg, [...] Maintenance, 01/28/25 5:58:00 PM EDT, REC Powder, [facility], Partial fill upon patient request if [...] 2 Refills, Maintenance, 11/09/24 11:02:00 AM EST, [facility]/pharmacy #[id number], 173, cm, 11/02/24 13:28:00 EST, Height, 108.1, kg, 10/16/24 8:53:00 EST, Dry Weight Start Date: 11/09/24 Status: Ordered Quantity: 30.0 Unit: tablet Repeat number: 3 Myrbetriq 50 mg oral tablet, extended release 1 tablet, By Mouth, Daily, DO NOT CRUSH OR CHEW., # 30 tablet, 11 Refills, Maintenance, 11/13/24 12:20:00 PM EST, [facility]., 173, cm, 11/02/24 13:28:00 EST, Height, 108.1, kg, 10/16/24 8:53:00 EST, Dry Weight Start Date: 11/13/24 Status: Ordered Quantity: 30.0 Unit: tablet Repeat number: 12 naratriptan 2.5 mg oral tablet See Instructions, TAKE 1 TABLET BY MOUTH EVERY DAY NEEDED FOR MIGRAINE, MAY REPEAT DOSE AFTER 4 HOURS NEEDED, # 18 tablet, 2 Refills, Maintenance, 01/01/25 9:12:00 PM EST, [facility], 173, cm, 12/02/24 16:39:00 EST, Height, 108.1, kg, 10/16/24 8:53:00 EST, Dry Weight Start Date: 01/01/25 Status: Ordered Quantity: 18.0 Unit: tablet Repeat number: 1 nitroglycerin 0.4 mg sublingual tablet 1 tablet [...] 0 Refills, Maintenance, 09/23/23 10:53:00 AM EST, [facility] [address], 165, cm, 09/12/23 13:12:00 EST, Height, 100, kg, 04/04/23 16:15:00 EDT, Dry Weight Start Date: 09/23/23 Status: Ordered Quantity: 30.0 Unit: tablet Repeat number: 1 pantoprazole 20 mg oral delayed release tablet = 20 mg, By Mouth, Daily, Take for next 12 months while taking aspirin and Brillinta. Refill per PCP or Physical Design Engineer., # 90 tablet, 3 Refills, Maintenance, 11/02/24 [...] 0 Refills, Maintenance, 01/28/25 6:06:00 PM EDT, [facility], dose reduced to 150mg bid 08/17/24., [...] 3 Refills, Maintenance, 12/08/24 2:34:00 PM EST, [facility]ORE [facility]78[facility], 173, cm, 12/02/24 16:39:00 EST, Height, 108.1, [...] 11:21:00 AM EST, Route to Pharmacy Electronically, [id number], [facility]/pharmacy #[id number], 173, cm, 12/02/24 16:39:00 EST, Height, 108.1, kg, 10/16/24 8:53:00 EST, Dry Weight Start Date: 12/24/24 Status: Ordered Quantity: 30.6 Unit: each Repeat number: 6 Ventolin HFA 108 mcg/inh inhalation aerosol with adapter 2 puffs, Inhalation, Every 6 hours, PRN NEEDED FOR WHEEZE OR FOR SHORTNESS OF BREATH, # 18 each,5 Refills, Maintenance, 11/27/24 4:28:00 PM EST, [facility], 173, cm, 11/02/24 13:28:00 EST, Height, 108.1, kg, 10/16/24 8:53:00 EST, Dry Weight Start Date: 11/27/24 Status: Ordered Quantity: 18.0 Unit: each Repeat number: 6 Vitamin B-12 1000 mcg oral tablet See Instructions, TAKE 1 TABLET BY MOUTH EVERY DAY, # 90 tablet, Refills 0, Maintenance, 12/04/24 1:50:00 PM EST, Instructions Replace Required Details, Route to Pharmacy Electronically, [facility], 173, cm, 12/02/24 16:39:00 EST, Height, [...] 0 Refills, Maintenance, 08/26/24 11:05:00 AM EDT, [id number], Partial fill upon patient request if the [...] Refills, Maintenance, 10/30/24 3:09:00 PM EST, Solution, [facility], patient going to d/c mikki, 173, cm, 10/16/24 8:53:00 EST, Height, 108.1, kg, 10/16/24 8:53:00 EST, Dry Weight Start Date: 10/30/24 Status: Ordered Quantity: 4.0 Unit: each Repeat number: 1 Zepbound 5 mg/0.5 mL subcutaneous solution = 5 mg, Subcutaneous Injection, Every week, rotate injection sites, # 4 each, 1 Refills, Maintenance, 11/02/24 1:19:00 PM EST, Solution, [facility], Partial fill upon patient request if [...] 5 Refills, Maintenance, 01/28/25 6:00:00 PM EDT, [facility] dose increase to 10mg 01/28/25., 173, cm, 01/28/25 17:21:00 EDT, Height, 108.1, kg, 10/16/24 8:53:00 EST, Dry Weight Start Date: 01/28/25 Status: Ordered Quantity: 4.0 Unit: each Repeat number: 6 Zepbound Pen 7.5 mg/0.5 mL subcutaneous solution = 7.5 mg, Subcutaneous Infusion, Every week, # 4 each, 2 Refills, Maintenance, 12/02/24 5:08:00 PM EST, [facility] dose increase to 7.5mg 12/02/24, 173, cm, [...] Active 1Follows with therapist and psychiatrist at [place] per previous notes 2PFTs show no obstruction. However has h/o asthma. Ct chest in 07/27 and pulm note says restrictive lung disease mild similiar to findings on PFT 3Follows with therapist and psychiatrist at [place] per previous notes 4Sleep study in 2016. [...] Care Nurse Name: Broderick Kidd MD Position: [facility] Resident Member Role: PCP Address: [address] [place] [address] Telecom: Care Team Related Persons Name: MARIO GERARD Name: CARI GARCÍA Name: NOELLE MAY Insurance Providers Guarantor name: TAYLOR SALAZAR Health Plan Information #: 1 Payer: [employer] Member Number: NA Policy Number: NA Group Number: NA
--- OUTSIDE RECORDS SUMMARY | 2025-02-16 15:47 | XMS_ITS | Continuity of Care Document ---
Author Organization [facility] Address [address] [place] [address]- Care Team Providers Care Cell Operator Name Role Phone Broderick Kidd MD Primary Care Physician En[place] [facility] [place] Date(s): 01/13/25 - 02/12/25 [facility] [address] [place] [id number]- Encounter Type: Triage Allergies, Adverse Reactions, Alerts [...] 04/25/23 Given tetanus/diphtheria/pertussis, acel(Tdap) 3 01/28/13 Given [id number] bivalent booster vax 01/03/23 Recorded SARS-CoV-2 (COVID-19) [...] 07/05/08 Recor ded 1Result Comment: received at [facility] on [facility] in [place] 2Admin Note: flulaval vis given vis date 05/05/2012 3Admin Note: VIS GIVEN VIS DATE 11/27/2011 4Result Comment: received 2nd dose at [facility] 5Result Comment: received at [facility] Medications acetaminophen 500 mg oral tablet 2 tablet, By Mouth, Every 8 hours, PRN NEEDED FOR PAIN, # 100 tablet, 3 Refills, Maintenance, 12/02/24 5:10:00 PM EST, [facility], cm, 12/02/24 16:39:00 EST, Height, 108.1, kg,10/16/24 8:53:00 EST, Dry Weight Start Date: 12/02/24 Status: Ordered Quantity: 100.0 Unit: tablet Repeat number: 4 Ajovy Autoinjector 225 mg/1.5 mL subcutaneous solution = 225 mg, Subcutaneous Injection, Every 28 days, # 1 kit, 5 Refills, Maintenance, 01/20/25 6:57:00 AM EDT, [facility], Partial fill upon [...] 5:29:00 PM EDT, Route to Pharmacy Electronically, [facility]/pharmacy #[id number], [...] 9:24:00 AM EST, Route to Pharmacy Electronically, [facility] #[id number], 173, cm, 10/16/24 8:53:00 EST, Height, 108.1, kg, 10/16/24 8:53:00 EST, Dry Weight Start Date: 10/16/24 Status: Ordered Quantity: 90.0 Unit: tablet Repeat number: 1 ammonium lactate 5% topical lotion 1 application, Topically, 2 times a day, PRN Dry Skin, apply and rub in well, # 120 Gm, 0 Refills, Maintenance, 12/05/22 5:09:00 PM EST, Lotion, [facility]/pharmacy #[id number], Partial fill upon [...] By Mouth, Daily, REFILLS PER PCP OR SACK LIFTER, # 90 tablet, 2 Refills, Maintenance, 01/06/25 11:31:00 AM EST, [facility], 173, cm, 12/02/24 16:39:00 EST, Height, 108.1, kg, 10/16/24 8:53:00 EST, Dry Weight Start Date: 01/06/25 Status: Ordered Quantity: 90.0 Unit: tablet Repeat number: 1 atorvastatin 80 mg oral tablet = 80 mg, By Mouth, Daily at bedtime, # 90 capsule, 3 Refills, Maintenance, 11/02/24 1:22:00 PM EST,Tablet, [facility]/pharmacy #[id number], Partial fill upon patient request [...] 5 Refills, Maintenance, 11/02/24 1:23:00 PM EST, [facility]/pharmacy #[id number], 173, cm, 11/02/24 13:12:00 EST, Height, [...] 1 Refills, Maintenance, 01/12/25 7:51:00 AM EDT, [facility], 25, APPLY TOPICALLY FOUR TIMES A [...] 11 Refills, Maintenance, 01/28/25 6:09:00 PM EDT, [facility], Partial fill upon patient request if [...] 2:26:00 PM EST, Route to Pharmacy Electronically, [facility], 173, cm, 12/02/24 16:39:00 EST, Height, 108.1, kg, 10/16/24 8:53:00 EST, Dry Weight Start Date: 01/01/25 Status: Ordered Quantity: 180.0 Unit: tablet Repeat number: 2 lidocaine 5% topical film 1 patch, Topically, Daily, PRN NEEDED FOR PAIN MILD, REMOVE AFTER 12 HOURS, # 30 patch, 0 Refills, Maintenance, 02/05/23 11:52:00 PM EDT, [facility], 30, APPLY 1 PATCH TOPICALLY DAILY,X30 DAYS [...] 2:48:00 PM EST, Route to Pharmacy Electronically, [facility], 165.1, cm, 12/05/22 15:21:00 EST, Height Start Date: 12/31/22 Stop Date: 01/30/23 Status: Ordered Quantity: 60.0 Unit: tablet Repeat number: 1 losartan 50 mg oral tablet 1 tablet, By Mouth, Daily, # 90 tablet, 1 Refills, Maintenance, 09/16/24 10:17:00 AM EST, [facility]/pharmacy #[id number], 173, cm, 08/19/24 12:16:00 EDT, Height, 101.4, kg, 04/27/24 14:38:00 EDT, Dry Weight Start Date: 09/16/24 Status: Ordered Quantity: 90.0 Unit: tablet Repeat number: 2 meclizine 25 mg oral tablet 1 tablet, By Mouth, 2 times a day, PRN NEEDED FOR DIZZINESS, # 60 tablet, 3 Refills, Maintenance, 01/28/25 5:58:00 PM EDT, [facility]., 173, cm, 01/28/25 17:21:00 EDT, Height, [...] Maintenance, 01/28/25 5:58:00 PM EDT, REC Powder, [facility], Partial fill upon patient request if [...] 2 Refills, Maintenance, 11/09/24 11:02:00 AM EST, [facility]/pharmacy #[id number], 173, cm, 11/02/24 13:28:00 EST, Height, 108.1, kg, 10/16/24 8:53:00 EST, Dry Weight Start Date: 11/09/24 Status: Ordered Quantity: 30.0 Unit: tablet Repeat number: 3 Myrbetriq 50 mg oral tablet, extended release 1 tablet, By Mouth, Daily, DO NOT CRUSH OR CHEW., # 30 tablet, 11 Refills, Maintenance, 11/13/24 12:20:00 PM EST, [facility]., 173, cm, 11/02/24 13:28:00 EST, Height, 108.1, kg, 10/16/24 8:53:00 EST, Dry Weight Start Date: 11/13/24 Status: Ordered Quantity: 30.0 Unit: tablet Repeat number: 12 naratriptan 2.5 mg oral tablet See Instructions, TAKE 1 TABLET BY MOUTH EVERY DAY NEEDED FOR MIGRAINE, MAY REPEAT DOSE AFTER 4 HOURS NEEDED, # 18 tablet, 2 Refills, Maintenance, 01/01/25 9:12:00 PM EST, [facility], 173, cm, 12/02/24 16:39:00 EST, Height, [...] 0 Refills, Maintenance, 09/23/23 10:53:00 AM EST, [facility] [address], 165, cm, 09/12/23 13:12:00 EST, Height, 100, kg, 04/04/23 16:15:00 EDT, Dry Weight Start Date: 09/23/23 Status: Ordered Quantity: 30.0 Unit: tablet Repeat number: 1 pantoprazole 20 mg oral delayed release tablet = 20 mg, By Mouth, Daily, Take for next 12 months while taking aspirin and Brillinta. Refill per PCP or [employer]., # 90 tablet, 3 Refills, Maintenance, 11/02/24 [...] 0 Refills, Maintenance, 01/28/25 6:06:00 PM EDT, [facility], dose reduced to 150mg bid 08/17/24., [...] 3 Refills, Maintenance, 12/08/24 2:34:00 PM EST, [facility], 173, cm, 12/02/24 16:39:00 EST, Height, 108.1, [...] 11:21:00 AM EST, Route to Pharmacy Electronically, [id number], [facility]/pharmacy #[id number], 173, cm, 12/02/24 16:39:00 EST, Height, 108.1, kg, 10/16/24 8:53:00 EST, Dry Weight Start Date: 12/24/24 Status: Ordered Quantity: 30.6 Unit: each Repeat number: 6 Ventolin HFA 108 mcg/inh inhalation aerosol with adapter 2 puffs, Inhalation, Every 6 hours, PRN NEEDED FOR WHEEZE OR FOR SHORTNESS OF BREATH, # 18 each,5 Refills, Maintenance, 11/27/24 4:28:00 PM EST, [facility], 173, cm, 11/02/24 13:28:00 EST, Height, 108.1, kg, 10/16/24 8:53:00 EST, Dry Weight Start Date: 11/27/24 Status: Ordered Quantity: 18.0 Unit: each Repeat number: 6 Vitamin B-12 1000 mcg oral tablet See Instructions, TAKE 1 TABLET BY MOUTH EVERY DAY, # 90 tablet, Refills 0, Maintenance, 12/04/24 1:50:00 PM EST, Instructions Replace Required Details, Route to Pharmacy Electronically, [facility], 173, cm, 12/02/24 16:39:00 EST, Height, [...] 0 Refills, Maintenance, 08/26/24 11:05:00 AM EDT, [id number], Partial fill upon patient request if the [...] Refills, Maintenance, 10/30/24 3:09:00 PM EST, Solution, [facility], patient going to d/c mikki, 173, cm, 10/16/24 8:53:00 EST, Height, 108.1, kg, 10/16/24 8:53:00 EST, Dry Weight Start Date: 10/30/24 Status: Ordered Quantity: 4.0 Unit: each Repeat number: 1 Zepbound 5 mg/0.5 mL subcutaneous solution = 5 mg, Subcutaneous Injection, Every week, rotate injection sites, # 4 each, 1 Refills, Maintenance, 11/02/24 1:19:00 PM EST, Solution, [facility], Partial fill upon patient request if [...] 5 Refills, Maintenance, 01/28/25 6:00:00 PM EDT, [facility]., dose increase to 10mg 01/28/25., 173, cm, 01/28/25 17:21:00 EDT, Height, 108.1, kg, 10/16/24 8:53:00 EST, Dry Weight Start Date: 01/28/25 Status: Ordered Quantity: 4.0 Unit: each Repeat number: 6 Zepbound Pen 7.5 mg/0.5 mL subcutaneous solution = 7.5 mg, Subcutaneous Infusion, Every week, # 4 each, 2 Refills, Maintenance, 12/02/24 5:08:00 PM EST, [facility]., dose increase to 7.5mg 12/02/24, 173, [...] Active 1Follows with therapist and psychiatrist at [place] per previous notes 2PFTs show no obstruction. However has h/o asthma. Ct chest in 07/27 and pulm note says restrictive lung disease mild similiar to findings on PFT 3Follows with therapist and psychiatrist at [place] per previous notes 4Sleep study in 2016. [...] Care Nurse Name: Broderick Kidd MD Position: [facility] Resident Member Role: PCP Address: [address] [place] [address] [place] [address]- Telecom: Care Team Related Persons Name: MARIO GERARD Name: CARI GARCÍA Name: NOELLE MAY Insurance Providers Guarantor name: TAYLOR SALAZAR Health Plan Information #: 1 Payer: [employer] Member Number: NA Policy Number: NA Group Number: NA
--- OUTSIDE RECORDS SUMMARY | 2025-02-16 15:47 | XMS_ITS | Encounter Summary ---
Author Organization [employer] [facility] Address [address] [place] [address] [address] [place] [address] Care Team Providers Care Salesperson Sewing Machines Name Role Phone Unavailable Primary Care Provider Unavailabl e Reason for Visit * Reason Comments Med Refill Encounter Details Date Type Department Care Team (Late st Contact Info) Description 06/23/2024 Refill [facility] [address], [place] [phone] Pop Oneil DDS [address], [place] [phone] Social History Tobacco Use Types Packs/Day Years [...]
--- OUTSIDE RECORDS SUMMARY | 2025-02-16 15:47 | XMS_ITS | Continuity of Care Document ---
Author Organization [facility] Address [address] [facility], 3r d Floor, [address] [place] [phone]- Care Team Providers Care Veneer Measurer Name Role Phone Broderick Kidd MD Primary Care Physician Encounter [facility] Date(s): 01/11/25 - 02/10/25 [facility] [address], [address] [place] [phone]- Encounter Type: Triage Allergies, Adverse Reactions, Alerts [...] 04/25/23 Given tetanus/diphtheria/pertussis, acel(Tdap) 3 01/28/13 Given [id number] bivalent booster vax 01/03/23 Recorded SARS-CoV-2 (COVID-19) [...] ded 1Result Comment: received at [facility] in [place] 2Admin Note: flulaval vis given vis date 05/05/2012 3Admin Note: VIS GIVEN VIS DATE 11/27/2011 4Result Comment: received 2nd dose at [facility] 5Result Comment: received at [facility] Medications acetaminophen 500 mg oral tablet 2 tablet, By Mouth, Every 8 hours, PRN NEEDED FOR PAIN, # 100 tablet, 3 Refills, Maintenance, 12/02/24 5:10:00 PM EST, [facility], cm, 12/02/24 16:39:00 EST, Height, 108.1, kg,10/16/24 8:53:00 EST, Dry Weight Start Date: 12/02/24 Status: Ordered Quantity: 100.0 Unit: tablet Repeat number: 4 Ajovy Autoinjector 225 mg/1.5 mL subcutaneous solution = 225 mg, Subcutaneous Injection, Every 28 days, # 1 kit, 5 Refills, Maintenance, 01/20/25 6:57:00 AM EDT, [facility], Partial fill upon patient [...] 5:29:00 PM EDT, Route to [facility] Electronically, [facility] [...] 9:24:00 AM EST, Route to Pharmacy Electronically, [facility] #[id number], 173, cm, 10/16/24 8:53:00 EST, Height, 108.1, kg, 10/16/24 8:53:00 EST, Dry Weight Start Date: 10/16/24 Status: Ordered Quantity: 90.0 Unit: tablet Repeat number: 1 ammonium lactate 5% topical lotion 1 application, Topically, 2 times a day, PRN Dry Skin, apply and rub in well, # 120 Gm, 0 Refills, Maintenance, 12/05/22 5:09:00 PM EST, Lotion, [facility]/pharmacy #[id number], [...] By Mouth, Daily, REFILLS PER PCP OR COURT LIAISON, # 90 tablet, 2 Refills, Maintenance, 01/06/25 11:31:00 AM EST, [facility], 173, cm, 12/02/24 16:39:00 EST, Height, 108.1, kg, 10/16/24 8:53:00 EST, Dry Weight Start Date: 01/06/25 Status: Ordered Quantity: 90.0 Unit: tablet Repeat number: 1 atorvastatin 80 mg oral tablet = 80 mg, By Mouth, Daily at bedtime, # 90 capsule, 3 Refills, Maintenance, 11/02/24 1:22:00 PM EST,Tablet, [facility]/pharmacy #[id number], Partial fill [...] 5 Refills, Maintenance, 11/02/24 1:23:00 PM EST, [facility]/pharmacy #[id number], 173, cm, 11/02/24 13:12:00 [...] 1 Refills, Maintenance, 01/12/25 7:51:00 AM EDT, [facility], 25, APPLY TOPICALLY FOUR TIMES A [...] 11 Refills, Maintenance, 01/28/25 6:09:00 PM EDT, [facility], Partial fill upon patient request [...] 2:26:00 PM EST, Route to Pharmacy Electronically, [facility], 173, cm, 12/02/24 16:39:00 EST, Height, 108.1, kg, 10/16/24 8:53:00 EST, Dry Weight Start Date: 01/01/25 Status: Ordered Quantity: 180.0 Unit: tablet Repeat number: 2 lidocaine 5% topical film 1 patch, Topically, Daily, PRN NEEDED FOR PAIN MILD, REMOVE AFTER 12 HOURS, # 30 patch, 0 Refills, Maintenance, 02/05/23 11:52:00 PM EDT, [facility] STORE [id number], 30, APPLY 1 PATCH TOPICALLY DAILY,X30 DAYS [...] 2:48:00 PM EST, Route to Pharmacy Electronically, [id number], 165.1, cm, 12/05/22 15:21:00 EST, Height Start Date: 12/31/22 Stop Date: 01/30/23 Status: Ordered Quantity: 60.0 Unit: tablet Repeat number: 1 losartan 50 mg oral tablet 1 tablet, By Mouth, Daily, # 90 tablet, 1 Refills, Maintenance, 09/16/24 10:17:00 AM EST, [facility]/pharmacy #[id number], 173, cm, 08/19/24 12:16:00 EDT, Height, 101.4, kg, 04/27/24 14:38:00 EDT, Dry Weight Start Date: 09/16/24 Status: Ordered Quantity: 90.0 Unit: tablet Repeat number: 2 meclizine 25 mg oral tablet 1 tablet, By Mouth, 2 times a day, PRN NEEDED FOR DIZZINESS, # 60 tablet, 3 Refills, Maintenance, 01/28/25 5:58:00 PM EDT, [facility]., 173, cm, 01/28/25 17:21:00 EDT, Height, [...] Maintenance, 01/28/25 5:58:00 PM EDT, REC Powder, [facility], Partial fill upon patient request [...] 2 Refills, Maintenance, 11/09/24 11:02:00 AM EST, [facility]/pharmacy #[id number], 173, cm, 11/02/24 13:28:00 EST, Height, 108.1, kg, 10/16/24 8:53:00 EST, Dry Weight Start Date: 11/09/24 Status: Ordered Quantity: 30.0 Unit: tablet Repeat number: 3 Myrbetriq 50 mg oral tablet, extended release 1 tablet, By Mouth, Daily, DO NOT CRUSH OR CHEW., # 30 tablet, 11 Refills, Maintenance, 11/13/24 12:20:00 PM EST, [facility], 173, cm, 11/02/24 13:28:00 EST, Height, 108.1, kg, 10/16/24 8:53:00 EST, Dry Weight Start Date: 11/13/24 Status: Ordered Quantity: 30.0 Unit: tablet Repeat number: 12 naratriptan 2.5 mg oral tablet See Instructions, TAKE 1 TABLET BY MOUTH EVERY DAY NEEDED FOR MIGRAINE, MAY REPEAT DOSE AFTER 4 HOURS NEEDED, # 18 tablet, 2 Refills, Maintenance, 01/01/25 9:12:00 PM EST, [facility], 173, cm, 12/02/24 16:39:00 EST, Height, [...] 0 Refills, Maintenance, 09/23/23 10:53:00 AM EST, [facility] [id number], 165, cm, 09/12/23 13:12:00 EST, Height, 100, kg, 04/04/23 16:15:00 EDT, Dry Weight Start Date: 09/23/23 Status: Ordered Quantity: 30.0 Unit: tablet Repeat number: 1 pantoprazole 20 mg oral delayed release tablet = 20 mg, By Mouth, Daily, Take for next 12 months while taking aspirin and Brillinta. Refill per PCP or Product Support Consultant., # 90 tablet, 3 Refills, Maintenance, 11/02/24 1:23:00 PM EST, Tablet, 173, cm, 11/02/24 13:12:00 EST, Height, [...] 0 Refills, Maintenance, 01/28/25 6:06:00 PM EDT, [facility], dose reduced to 150mg bid [...] 3 Refills, Maintenance, 12/08/24 2:34:00 PM EST, [facility] [id number], 173, cm, 12/02/24 16:39:00 EST, Height, 108.1, [...] 11:21:00 AM EST, Route to Pharmacy Electronically, [id number], [facility]/pharmacy #[id number], 173, cm, 12/02/24 16:39:00 EST, Height, 108.1, kg, 10/16/24 8:53:00 EST, Dry Weight Start Date: 12/24/24 Status: Ordered Quantity: 30.6 Unit: each Repeat number: 6 Ventolin HFA 108 mcg/inh inhalation aerosol with adapter 2 puffs, Inhalation, Every 6 hours, PRN NEEDED FOR WHEEZE OR FOR SHORTNESS OF BREATH, # 18 each,5 Refills, Maintenance, 11/27/24 4:28:00 PM EST, [facility], cm, 11/02/24 13:28:00 EST, Height, 108.1, kg, 10/16/24 8:53:00 EST, Dry Weight Start Date: 11/27/24 Status: Ordered Quantity: 18.0 Unit: each Repeat number: 6 Vitamin B-12 1000 mcg oral tablet See Instructions, TAKE 1 TABLET BY MOUTH EVERY DAY, # 90 tablet, Refills 0, Maintenance, 12/04/24 1:50:00 PM EST, Instructions Replace Required Details, Route to Pharmacy Electronically, [facility], 173, cm, 12/02/24 16:39:00 EST, [...] 0 Refills, Maintenance, 08/26/24 11:05:00 AM EDT, [facility][id number], Partial fill upon patient request if the [...] Refills, Maintenance, 10/30/24 3:09:00 PM EST, Solution, [facility]., patient going to d/c mikki, 173, cm, 10/16/24 8:53:00 EST, Height, 108.1, kg, 10/16/24 8:53:00 EST, Dry Weight Start Date: 10/30/24 Status: Ordered Quantity: 4.0 Unit: each Repeat number: 1 Zepbound 5 mg/0.5 mL subcutaneous solution = 5 mg, Subcutaneous Injection, Every week, rotate injection sites, # 4 each, 1 Refills, Maintenance, 11/02/24 1:19:00 PM EST, Solution, [facility], Partial fill upon patient request [...] 5 Refills, Maintenance, 01/28/25 6:00:00 PM EDT, [facility] dose increase to 10mg 01/28/25., 173, cm, 01/28/25 17:21:00 EDT, Height, 108.1, kg, 10/16/24 8:53:00 EST, Dry Weight Start Date: 01/28/25 Status: Ordered Quantity: 4.0 Unit: each Repeat number: 6 Zepbound Pen 7.5 mg/0.5 mL subcutaneous solution = 7.5 mg, Subcutaneous Infusion, Every week, # 4 each, 2 Refills, Maintenance, 12/02/24 5:08:00 PM EST, [facility]., dose increase to 7.5mg 12/02/24, 173, [...] Active 1Follows with therapist and psychiatrist at [place] per previous notes 2PFTs show no obstruction. However has h/o asthma. Ct chest in 07/27 and pulm note says restrictive lung disease mild similiar to findings on PFT 3Follows with therapist and psychiatrist at [place] per previous notes 4Sleep study in 2016. [...] Care Nurse Name: Broderick Kidd MD Position: [facility] Resident Member Role: PCP Address: [address] [place] [address] Telecom: Care Team Related Persons Name: MARIO GERARD Name: CARI GARCÍA Name: NOELLE MAY Insurance Providers Guarantor name: TAYLOR SALAZAR Health Plan Information #: 1 Payer: [employer] Member Number: NA Policy Number: NA Group Number: NA
--- OUTSIDE RECORDS SUMMARY | 2025-02-16 15:47 | XMS_ITS | Continuity of Care Document ---
Author Organization [facility] Address [address] [facility], 3r d Floor, [address] [place] [id number]- Care Team Providers Care Data Entry Processor Name Role Phone Broderick Kidd MD Primary Care Physician [phone] [place] [facility] [place]s): [place]/11[place]25 - 02/10/25 [facility] [address], [address] [place] [phone]- Encounter Type: Triage Allergies, Adverse Reactions, Alerts [...] 04/25/23 Given tetanus/diphtheria/pertussis, acel(Tdap) 3 01/28/13 Given [id number] bivalent booster vax 01/03/23 Recorded SARS-CoV-2 (COVID-19) [...] 07/05/08 Recor ded 1Result Comment: received at [facility] in [place] 2Admin Note: flulaval vis given vis date 05/05/2012 3Admin Note: VIS GIVEN VIS DATE 11/27/2011 4Result Comment: received 2nd dose at [facility] 5Result Comment: received at [facility] Medications acetaminophen 500 mg oral tablet 2 tablet, By Mouth, Every 8 hours, PRN NEEDED FOR PAIN, # 100 tablet, 3 Refills, Maintenance, 12/02/24 5:10:00 PM EST, [facility], cm, 12/02/24 16:39:00 EST, Height, 108.1, kg,10/16/24 8:53:00 EST, Dry Weight Start Date: 12/02/24 Status: Ordered Quantity: 100.0 Unit: tablet Repeat number: 4 Ajovy Autoinjector 225 mg/1.5 mL subcutaneous solution = 225 mg, Subcutaneous Injection, Every 28 days, # 1 kit, 5 Refills, Maintenance, 01/20/25 6:57:00 AM EDT, [facility], Partial fill upon [...] 5:29:00 PM EDT, Route to Pharmacy Electronically, [facility]/pharmacy #[id number], Partial fill upon patient [...] 9:24:00 AM EST, Route to Pharmacy Electronically, [facility] #[id number], 173, cm, 10/16/24 8:53:00 EST, Height, 108.1, kg, 10/16/24 8:53:00 EST, Dry Weight Start Date: 10/16/24 Status: Ordered Quantity: 90.0 Unit: tablet Repeat number: 1 ammonium lactate 5% topical lotion 1 application, Topically, 2 times a day, PRN Dry Skin, apply and rub in well, # 120 Gm, 0 Refills, Maintenance, 12/05/22 5:09:00 PM EST, Lotion, [facility]/pharmacy #[id number], Partial fill upon patient [...] By Mouth, Daily, REFILLS PER PCP OR HOG MAN, # 90 tablet, 2 Refills, Maintenance, 01/06/25 11:31:00 AM EST, [facility], 173, cm, 12/02/24 16:39:00 EST, Height, 108.1, kg, 10/16/24 8:53:00 EST, Dry Weight Start Date: 01/06/25 Status: Ordered Quantity: 90.0 Unit: tablet Repeat number: 1 atorvastatin 80 mg oral tablet = 80 mg, By Mouth, Daily at bedtime, # 90 capsule, 3 Refills, Maintenance, 11/02/24 1:22:00 PM EST,Tablet, [facility]/pharmacy #[id number], Partial fill upon patient [...] 5 Refills, Maintenance, 11/02/24 1:23:00 PM EST, [facility]/pharmacy #[id number], 173, cm, 11/02/24 13:12:00 EST, Height, [...] 1 Refills, Maintenance, 01/12/25 7:51:00 AM EDT, [facility], 25, APPLY TOPICALLY FOUR TIMES A [...] 11 Refills, Maintenance, 01/28/25 6:09:00 PM EDT, [facility], Partial fill upon patient request if [...] 2:26:00 PM EST, Route to Pharmacy Electronically, [facility], 173, cm, 12/02/24 16:39:00 EST, Height, 108.1, kg, 10/16/24 8:53:00 EST, Dry Weight Start Date: 01/01/25 Status: Ordered Quantity: 180.0 Unit: tablet Repeat number: 2 lidocaine 5% topical film 1 patch, Topically, Daily, PRN NEEDED FOR PAIN MILD, REMOVE AFTER 12 HOURS, # 30 patch, 0 Refills, Maintenance, 02/05/23 11:52:00 PM EDT, [facility] 18748, 30, APPLY 1 PATCH TOPICALLY DAILY,X30 DAYS [...] 2:48:00 PM EST, Route to Pharmacy Electronically, [facility], 165.1, cm, 12/05/22 15:21:00 EST, Height Start Date: 12/31/22 Stop Date: 01/30/23 Status: Ordered Quantity: 60.0 Unit: tablet Repeat number: 1 losartan 50 mg oral tablet 1 tablet, By Mouth, Daily, # 90 tablet, 1 Refills, Maintenance, 09/16/24 10:17:00 AM EST, [facility]/pharmacy #[id number], 173, cm, 08/19/24 12:16:00 EDT, Height, 101.4, kg, 04/27/24 14:38:00 EDT, Dry Weight Start Date: 09/16/24 Status: Ordered Quantity: 90.0 Unit: tablet Repeat number: 2 meclizine 25 mg oral tablet 1 tablet, By Mouth, 2 times a day, PRN NEEDED FOR DIZZINESS, # 60 tablet, 3 Refills, Maintenance, 01/28/25 5:58:00 PM EDT, [facility]., 173, cm, 01/28/25 17:21:00 EDT, Height, [...] Maintenance, 01/28/25 5:58:00 PM EDT, REC Powder, [facility], Partial fill upon patient request if [...] 2 Refills, Maintenance, 11/09/24 11:02:00 AM EST, [facility]/pharmacy #[id number], 173, cm, 11/02/24 13:28:00 EST, Height, 108.1, kg, 10/16/24 8:53:00 EST, Dry Weight Start Date: 11/09/24 Status: Ordered Quantity: 30.0 Unit: tablet Repeat number: 3 Myrbetriq 50 mg oral tablet, extended release 1 tablet, By Mouth, Daily, DO NOT CRUSH OR CHEW., # 30 tablet, 11 Refills, Maintenance, 11/13/24 12:20:00 PM EST, [facility], 173, cm, 11/02/24 13:28:00 EST, Height, 108.1, kg, 10/16/24 8:53:00 EST, Dry Weight Start Date: 11/13/24 Status: Ordered Quantity: 30.0 Unit: tablet Repeat number: 12 naratriptan 2.5 mg oral tablet See Instructions, TAKE 1 TABLET BY MOUTH EVERY DAY NEEDED FOR MIGRAINE, MAY REPEAT DOSE AFTER 4 HOURS NEEDED, # 18 tablet, 2 Refills, Maintenance, 01/01/25 9:12:00 PM EST, [facility], 173, cm, 12/02/24 16:39:00 EST, Height, [...] 0 Refills, Maintenance, 09/23/23 10:53:00 AM EST, [facility] [address], 165, cm, 09/12/23 13:12:00 EST, Height, 100, kg, 04/04/23 16:15:00 EDT, Dry Weight Start Date: 09/23/23 Status: Ordered Quantity: 30.0 Unit: tablet Repeat number: 1 pantoprazole 20 mg oral delayed release tablet = 20 mg, By Mouth, Daily, Take for next 12 months while taking aspirin and Brillinta. Refill per PCP or Android Programmer., # 90 tablet, 3 Refills, Maintenance, 11/02/24 [...] 0 Refills, Maintenance, 01/28/25 6:06:00 PM EDT, [facility], dose reduced to 150mg bid 08/17/24., [...] 3 Refills, Maintenance, 12/08/24 2:34:00 PM EST, [facility], 173, cm, 12/02/24 16:39:00 EST, Height, 108.1, [...] 11:21:00 AM EST, Route to Pharmacy Electronically, [id number], [facility]/pharmacy #[id number], 173, cm, 12/02/24 16:39:00 EST, Height, 108.1, kg, 10/16/24 8:53:00 EST, Dry Weight Start Date: 12/24/24 Status: Ordered Quantity: 30.6 Unit: each Repeat number: 6 Ventolin HFA 108 mcg/inh inhalation aerosol with adapter 2 puffs, Inhalation, Every 6 hours, PRN NEEDED FOR WHEEZE OR FOR SHORTNESS OF BREATH, # 18 each,5 Refills, Maintenance, 11/27/24 4:28:00 PM EST, [facility] 173, cm, 11/02/24 13:28:00 EST, Height, 108.1, kg, 10/16/24 8:53:00 EST, Dry Weight Start Date: 11/27/24 Status: Ordered Quantity: 18.0 Unit: each Repeat number: 6 Vitamin B-12 1000 mcg oral tablet See Instructions, TAKE 1 TABLET BY MOUTH EVERY DAY, # 90 tablet, Refills 0, Maintenance, 12/04/24 1:50:00 PM EST, Instructions Replace Required Details, Route to Pharmacy Electronically, [facility], 173, cm, 12/02/24 16:39:00 EST, [...] 0 Refills, Maintenance, 08/26/24 11:05:00 AM EDT, [id number], Partial fill upon patient request if the [...] Refills, Maintenance, 10/30/24 3:09:00 PM EST, Solution, [facility]., patient going to d/c mikki, 173, cm, 10/16/24 8:53:00 EST, Height, 108.1, kg, 10/16/24 8:53:00 EST, Dry Weight Start Date: 10/30/24 Status: Ordered Quantity: 4.0 Unit: each Repeat number: 1 Zepbound 5 mg/0.5 mL subcutaneous solution = 5 mg, Subcutaneous Injection, Every week, rotate injection sites, # 4 each, 1 Refills, Maintenance, 11/02/24 1:19:00 PM EST, Solution, [facility], Partial fill upon patient request if [...] 5 Refills, Maintenance, 01/28/25 6:00:00 PM EDT, [facility] dose increase to 10mg 01/28/25., 173, cm, 01/28/25 17:21:00 EDT, Height, 108.1, kg, 10/16/24 8:53:00 EST, Dry Weight Start Date: 01/28/25 Status: Ordered Quantity: 4.0 Unit: each Repeat number: 6 Zepbound Pen 7.5 mg/0.5 mL subcutaneous solution = 7.5 mg, Subcutaneous Infusion, Every week, # 4 each, 2 Refills, Maintenance, 12/02/24 5:08:00 PM EST, [facility]., dose increase to 7.5mg 12/02/24, 173, [...] Active 1Follows with therapist and psychiatrist at [place] per previous notes 2PFTs show no obstruction. However has h/o asthma. Ct chest in 07/27 and pulm note says restrictive lung disease mild similiar to findings on PFT 3Follows with therapist and psychiatrist at [place] per previous notes 4Sleep study in 2016. [...] Care Nurse Name: Broderick Kidd MD Position: [facility] Resident Member Role: PCP Address: [address] [place] [address] Telecom: Care Team Related Persons Name: MARIO GERARD Name: CARI GARCÍA Name: NOELLE MAY Insurance Providers Guarantor name: TAYLOR SALAZAR Health Plan Information #: 1 Payer: [employer] Member Number: NA Policy Number: NA Group Number: NA
== END 2025-02-16 13:20 | disposition home or self-care (01) ==
LOC: HO.HCS 12:54
PROVIDERS: PCP Student in an Organized Health Care Education/Training Program; Visit Provider Internal Medicine Cardiovascular Disease
DX: I25.10 Atherosclerotic heart disease of native coronary artery without angina pectoris (principal); I10 Essential (primary) hypertension; R06.02 Shortness of breath
CPT/HCPCS: 99214; G2211

== ENCOUNTER → 2025-02-16 12:54 | Outpatient (BNVA) | payer OTHER, SELFPAY | PROVIDERS: PCP Student in an Organized Health Care Education/Training Program; Visit Provider Internal Medicine Cardiovascular Disease | DX: I25.10 Atherosclerotic heart disease of native coronary artery without angina pectoris (principal); I10 Essential (primary) hypertension; R06.02 Shortness of breath; R07.9 Chest pain, unspecified; F17.210 Nicotine dependence, cigarettes, uncomplicated; Z99.89 Dependence on other enabling machines and devices | CPT/HCPCS: 99212 ==

== ENCOUNTER 2025-03-02 12:42 | Outpatient (REF) | payer OTHER, SELFPAY ==
[2025-03-02 17:19] LABS: Urine Cytology See Pathology rpt
== END 2025-03-02 12:43 | disposition home or self-care (01) ==
LOC: HO.LNP 12:42
PROVIDERS: PCP Student in an Organized Health Care Education/Training Program; Visit Provider Nurse Practitioner Family
DX: R31.29 Other microscopic hematuria (principal); Z13.9 Encounter for screening, unspecified; F17.200 Nicotine dependence, unspecified, uncomplicated; Z79.82 Long term (current) use of aspirin
CPT/HCPCS: 81003; 88112; 99202

== ENCOUNTER 2025-03-02 12:42 | Outpatient (AMB) | payer OTHER, SELFPAY ==
--- NOTE | 2025-03-02 12:54 | A.OFFVIS_ITS ---
Intake Visit Reasons: persistent microscopic hematuria Intake Note: New Patient presents for initial visit for microscopic hematuria Urology Medications: myrbetriq Blood Thinner: aspirin Smoker:yes; 30yrs Silver Buffer Required: No Accompanied by: Unknown Allergies No Known Allergies Allergy (Verified 03/02/25 13:39) Medication List - Last Reconciled 03/02/25 by HALLIE Joe acetaminophen 1,000 mg PO Q8H PRN albuterol sulfate 2.5 mg inhalation Q6H PRN albuterol sulfate 90 mcg/actuation (Ventolin HFA) 2 puffs inhalation Q6H PRN amitriptyline 10 mg PO BEDTIME arm brace (DAMON Elbow Brace) as directed aspirin 81 mg PO DAILY atorvastatin 80 mg PO DAILY betamethasone dipropionate 0.05% 1 appl topical BID PRN budesonide-formoterol 80-4.5 mcg/actuation (Symbicort) 1 puff inhalation BID PRN cetirizine 10 mg PO DAILY@1500 ciclopirox 1% 1 ea topical Q7D PRN clobetasol 0.05% 1 appl topical BID clonazepam 1 mg PO TID PRN clonidine HCl 0.1 mg PO 3XD PRN CPAP As directed cyanocobalamin (vitamin B-12) (Vitamin B-12) 1,000 mcg PO DAILY cyclobenzaprine 5 - 10 mg (1 - 2 x 5 mg) PO BEDTIME diclofenac sodium 1% 1 g topical QID PRN duloxetine 30 mg PO DAILY famotidine 20 mg PO BID fexofenadine 180 mg PO DAILY fluocinonide 0.05% 1 appl topical BID PRN fremanezumab-vfrm (Ajovy) 225 mg subcut QMONTH hydrochlorothiazide 25 mg PO DAILY hydrocortisone 2.5% 1 appl topical DAILY PRN hydroxychloroquine 200 mg PO BID loratadine 10 mg PO DAILY losartan 100 mg PO DAILY meclizine 25 mg PO TID PRN mirabegron ER (Myrbetriq) 50 mg PO DAILY montelukast 10 mg PO QPM naratriptan 2.5 mg PO DAILY PRN neomycin-polymyxin B-dexameth 3.5mg/mL-10,000 unit/mL-0.1 % 1 drp ophthalmic (eye) QID nicotine 1 patch topical DAILY nitroglycerin 0.4 mg sublingual Q5M omeprazole 20 mg PO DAILY ondansetron HCl 8 mg PO TID PRN pantoprazole 20 mg PO DAILY pilocarpine HCl 5 mg PO BID PRN pregabalin 200 mg PO BID riboflavin (vitamin B2) 400 mg PO DAILY risperidone 2 mg PO BEDTIME rizatriptan 10 mg PO DAILY PRN sodium fluoride-pot nitrate 1.1-5 % 1 appl PO BID ticagrelor (Brilinta) 90 mg PO BID tirzepatide (weight loss) (Zepbound) mg subcut HPI Comments Details: Marilyn is a pleasant 50-year-old female patient of . She has a past medical history of non STEMI, coronary artery disease, smoker, DVT, gout, GERD, vertigo, asthma, migraines, anxiety, depression, fibromyalgia, neuropathy, and lupus. She presents to the office today as a new patient for microscopic hematuria in the setting of nicotine dependence. In discussion with the patient today she reports having followed up with her PCP and microscopic hematuria was noted at which time recommendations were made for urology referral for further assessment evaluation. She does report a longstanding history of bladder spasms and urinary incontinence and follows up with Dr. Melba Joshi through [facility] uro automation controls expert. She reports being on Myrbetriq and amitriptyline. She also reports previously having had urodynamics study and recommendations were made for InterStim placement however opted to continue with oral medication therapy. She does report a longstanding history of nicotine dependence over the last 30 years . She reports smoking approximately half a pack of cigarettes per day. We discussed correlation of microscopic hematuria in the setting of nicotine dependence. We also discussed further workup to include CT urogram as well as cystoscopy. She otherwise denies gross/visible hematuria, dysuria, foul- smelling urine, changes to urinary stream, flank pain, fever, and or chills. In office urinalysis results reviewed with the patient today 2+ microscopic hematuria. I discussed reasons for blood in the urine may include but are not limited to kidney stones, cancer in the urinary tract, kidney stone disease or inflammatory conditions of the urinary tract. I have discussed workup to include cystoscopy evaluation. [facility] Medical History Non-ST elevated myocardial infarction (non-STEMI) CAD (coronary artery disease) Smoker Dvt femoral (deep venous thrombosis) Gout GERD (gastroesophageal reflux disease) Vertigo Asthma Migraine Anxiety and depression Fibromyalgia Neuropathy H/O Sjogren's disease Discoid lupus Lupus Surgical History S/P cardiac catheterization Hx of hysterectomy Hx of thumb surgery Hx of knee surgery Family History Other Arthritis Lupus Social History Household Members: Family Housing: Apartment Do you presently have visiting nurse or other home services: No Alcohol intake: former Patient Tobacco Use Status: Current everyday Tobacco user Tobacco use type: Cigarette Cigarette Packs Per Day: 0.5 Cigarettes Per Day: 10.0 service: No Current occupational status: unemployed Review of Systems Const All systems reviewed & are unremarkable except as noted in HPI and below Physical Exam Const General: cooperative, healthy appearing, comfortable, no acute distress, well developed, alert and awake Orientation/consciousness: patient oriented x3 Limitations: no limitations HEENT Head: Yes normal to inspection, Yes normocephalic and Yes atraumatic Ears: hearing grossly normal bilaterally Eyes General: appearance normal, both eyes and all related structures Neck Neck: Yes normal visual inspection and Yes trachea midline Chest Chest palpation & inspection: normal inspection of the chest Resp Effort & Inspection: normal respiratory effort and able to speak in complete sentences Cardio Rate: regular rate GI Inspection: Yes normal to inspection General: Yes no CVA tenderness Back/Spine/Pelvis Back: no CVA tenderness Skin General skin exam: no rashes or lesions noted Neuro General: patient oriented x3 Extrem General: Yes normal to inspection Psych Appearance: grossly normal and well kempt Mental Status: mental status grossly normal Speech and movement: Normal speech and movement present and Clear speech present Affect: normal affect Attitude: cooperative Thought process: Normal thought process present Thought content: Normal thought content present Insight: Fair insight present (Psych) Judgement: Fair judgement present (Psych) Results AMB Urinalysis, Automated UA Leukoctes 0 [place]/uL Last Edit by Donnell Ramirez on 03/02/25 13:10 UA Nitrite Last Edit by Donnell Ramirez on 03/02/25 13:10 UA Urobilinogen 0.2 mg/dL Last Edit by Donnell Ramirez on 03/02/25 13:10 UA Protein 15 mg/dL Last Edit by Donnell Ramirez on 03/02/25 13:10 UA pH 6.5 Last Edit by Fernandoyce Brecarol on 03/02/25 13:10 UA Blood 80 Joshua/uL Last Edit by edoe ActiveGiftcarol on 03/02/25 13:10 UA Specific [place] 1.020 Last Edit by Donnell Ramirez on 03/02/25 13:10 UA Ketone Last Edit by Donnell Ramirez on 03/02/25 13:10 UA Bilirubin 0 mg/dL Last Edit by Donnell Ramirez on 03/02/25 13:10 UA Glucose 0 mg/dL Last Edit by Donnell Ramirez on 03/02/25 13:10 Results Reviewed Results Reviewed: Laboratory Last Values Urine pH (Auto) 6.5 03/02/25 12:59 Specific [place] (Auto) 1.020 03/02/25 12:59 Urine Protein (Auto) 15 mg/dL 03/02/25 12:59 Glucose (UA)(Auto) 0 mg/dL 03/02/25 12:59 Urine Blood (Auto) 80 Joshua/uL 03/02/25 12:59 Urine Bilirubin (Auto) 0 mg/dL 03/02/25 12:59 Urine Urobilinogen (Auto) 0.2 mg/dL 03/02/25 12:59 Leukocyte Esterase (Auto) 0 [place]/uL 03/02/25 12:59 Assessment & Plan Assessment & Plan (1) Microscopic hematuria: Code(s): R31.29 - Other microscopic hematuria Category: Medical (2) Nicotine dependence: Code(s): F17.200 - Nicotine dependence, unspecified, uncomplicated Category: Medical Plan In office urinalysis results reviewed with the patient today; will send for urine cytology. Continue to follow-up with Dr. Joshi for ongoing management of incontinence and bladder spasms. We discussed potential causes of microscopic hematuria as well as further workup in risks and benefits of these interventions. Will obtain CT urogram for further assessment evaluation. BUN and creatinine ordered for imaging. Along discussed, educated, and stressed the importance of limiting/quitting nicotine dependence for overall health and well-being. Follow-up next available in office cystoscopy with imaging and labs to be completed prior; or sooner with any issues, concerns, and or questions. Orders: Orders AMB Urinalysis Automated Today Z13.9 - Encounter for screening, unspecified Urine Cytology Today R31.29 - Other microscopic hematuria Blood Urea Nitrogen Today F17.200 - Nicotine dependence, unspecified, uncomplicated, R31.29 - Other microscopic hematuria Creatinine Today F17.200 - Nicotine dependence, unspecified, uncomplicated, R31.29 - Other microscopic hematuria CT urogram Today F17.200 - Nicotine dependence, unspecified, uncomplicated, R31.29 - Other microscopic hematuria Patient Instructions: The patient had an opportunity to ask questions regarding the treatment plan. All questions were answered. Physical exam, labs, and imaging were discussed and reviewed in detail. As well as risks, benefits, and discussion of treatment choices. No major barriers to understanding were identified. The patient expressed understanding and agreement with the above treatment plan. The patient was made aware they should contact our office by phone for worsening of their current condition, the appearance of new symptoms, or with any questions or concerns. Compliance is encouraged with any medications and follow up testing that is ordered. It is a privilege to be allowed the opportunity to participate in? your urological care.? Again, if you have any questions or concerns If you have any questions or concerns please do not hesitate to contact me. The office is [phone]. This note is constructed using voice recognition software. While every effort has been made to ensure accuracy customer experience professional errors may have been included. Yours sincerely, HALLIE Joe Coding Level of Care Code New Pt Level 3 (85541) Diagnoses Microscopic hematuria R31.29 Nicotine dependence F17.200
== END 2025-03-02 13:42 | disposition home or self-care (01) ==
LOC: HO.HUSH 12:42
PROVIDERS: PCP Student in an Organized Health Care Education/Training Program; Visit Provider Nurse Practitioner Family
DX: R31.29 Other microscopic hematuria (principal); F17.200 Nicotine dependence, unspecified, uncomplicated; Z13.9 Encounter for screening, unspecified
CPT/HCPCS: 99203

== ENCOUNTER 2025-03-05 14:50 | Outpatient (REF) | payer OTHER, SELFPAY ==
--- NOTE | ~2025-03-05 | CT_ITS ---
CLINICAL HISTORY: J84.115 - Respiratory bronchiolitis interstitial lung disease CT chest without contrast Comparison: CT/REG/TN/SR - CT CHEST WO IV CON - 11/29/23 15:05 EST Findings: The heart size is normal. Atherosclerosis calcification of the LAD. The visualized thyroid and mediastinum are unremarkable. Stable Small pulmonary nodules: 2 mm subpleural nodule of the right upper lobe series 9, image 50; 3 mm subpleural nodule of the right middle lobe image 111. Redemonstration of the numerous small semi-solid nodules of the upper lobes 2-3 mm in size. The upper abdomen is unremarkable. The bones are intact. IMPRESSION: No significant interval change of the numerous small upper lobe dominant semi-solid nodules. This document has been electronically signed by: Denis Gutierrez MD on 03/08/2025 14:25:42
== END 2025-03-05 14:51 | disposition home or self-care (01) ==
LOC: HO.CT 14:50
PROVIDERS: PCP Student in an Organized Health Care Education/Training Program; Visit Provider Internal Medicine Pulmonary Disease
DX: J84.115 Respiratory bronchiolitis interstitial lung disease (principal)
CPT/HCPCS: 71250

== ENCOUNTER → 2025-03-05 14:55 | Outpatient (BNV) | payer OTHER, SELFPAY | PROVIDERS: PCP Student in an Organized Health Care Education/Training Program; Visit Provider Nuclear Medicine | DX: J84.115 Respiratory bronchiolitis interstitial lung disease (principal) | CPT/HCPCS: 71250 ==

== ENCOUNTER → 2025-03-17 14:43 | Outpatient (REF) | payer OTHER, SELFPAY ==
--- NOTE | 2025-03-17 14:45 | CA_ITS ---
Transthoracic Echocardiogram Patient (Last, First, Middle): Marilyn Wells I Gender: Female Date of : 1975 Age: 50 Procedure Date: 03/17/2025 Procedure Type: Transthoracic Echocardiogram Location: OP Height: 167.64 cm Weight: 99.79 kg BSA: 2.08 m2 Heart Rate: bpm BP: 100 / 60 mmHg Compliance Manager: TO Referring MD: Petar Robles MD Marketing Director: Petar Robles MD Symptoms: R06.02 - Shortness of breath Study Quality: Technically Difficult/Contrast ECG Rhythm: Sinus Conclusions: - 1. Normal LV ejection fraction of 60-65% 2. Normal cardiac valvular Doppler 3. Normal RV systolic pressure 4. No gross pericardial effusion Findings Procedure Information Contrast agent, definity, is being given per protocol without apparent complications. Left Ventricle Normal left ventricular size, thickness, and systolic function. The visually estimated ejection fraction is between 60-65%. Spectral Doppler is indicative of a normal filling pattern. Wall Motion Rest Echo Findings The apex segment is hypokinetic. All other scored wall segments showed normal motion. Right Ventricle Normal right ventricular cavity size and systolic function. Atria The left atrium is normal in size. Interatrial shunt cannot be excluded. Aortic Valve The aortic valve structure and function is likely normal. There is no aortic valve stenosis. There is no aortic valve regurgitation. Mitral Valve Normal mitral valve structure and function. There is trace mitral valve regurgitation. There is no mitral valve stenosis. Pulmonic Valve The pulmonic valve was not well visualized. Tricuspid Valve Likely normal tricuspid valve structure and function. Tricuspid regurgitation envelope is inadequate for calculation of right ventricular systolic pressure. Normal right atrial pressure. Great Vessels All visible segments of the aorta are normal in size. The pulmonary artery was not well visualized. There is no dilatation of the ascending aorta measuring 2.60 cm. Venous The inferior vena cava is normal in size and collapses greater than 50% with inspiration. Pericardium/Pleural There is no evidence of pericardial effusion. Prior Study Comparison No significant change compared to prior study dated: 04/27/2024. Measurements 2D Linear Measurements IVSd: 0.90 0.6-0.9/0.6-1.0 cm LVIDd: 4.39 3.9-5.3/4.2-5.9 cm LVIDd Index: 2.11 2.4-3.2/2.2-3.1 cm/m2 LVIDs: 3.09 2.0-3.6 cm LVPWd: 0.76 0.7-1.1 cm LA Diam: 3.00 2.7-3.8/3.0-4.0 cm LAIDs Index: 1.44 1.5-2.3 cm/m2 LV Mass: 142.54 67-162/88-224 g LV Mass Index: 68.53 43-95/49-115 g/m2 LVOT Diam: 2.10 3.0+(-)1.3 cm 2D Systolic Function EF 4C: 64.10 >55% EF 2C: 66.90 >55% EF BiP: 64.60 >55% Mitral Valve MV Pk E: 0.71 MV PK A: 0.54 MV Decel Time: 140.00 E/A: 1.30 E'Lateral: 8.27 E'Medial: 5.11 E/E' Med: 13.90 E/E' Lat: 8.60 PHT: 41.00 MVA PHT: 5.37 Decel Graves: 5.09 Aortic Valve AoV Pk Santino: 1.22 AoV Mn Santino: 0.88 AoV VTI: 0.22 AoV Pk Grad: 6.00 Aov Mn Grad: 3.00 GERHARD Cont.VTI: 2.95 LVOT LVOT Pk Santino: 0.94 LVOT Mn Santino: 0.63 LVOT VTI: 0.19 LVOT Pk Grad: 4.00 LVOT Mn Grad: 2.00 LVOT Diam: 2.10 LVOT Area: 3.46 Diastolic Function MV Pk E: 0.71 MV Pk A: 0.54 E/A: 1.30 E'Medial: 5.11 E/E' Med: 13.90 E' Laterial: 8.27 E/E' Lat: 8.60 Right Ventricle TAPSE (mm): 14.20 TVS' Santino: 9.03 Tricuspid Valve RA Press: 3.00 Great Vessels Aorta Sinus of Valsalva: 3.29 2.0-3.5 cm Ao Asc: 2.60 2.1-3.4 cm Updated in Other Vendor System with Status of Final Petar Robles MD electronically signed on 03/18/2025 5:09:12 PM with status of Final
--- OUTSIDE RECORDS SUMMARY | 2025-03-17 14:48 | XMS_ITS | Encounter Summary ---
Author Organization [facility] Address [address] [place] [address] [address] [place] [address] Care Team Providers Care Surveillance Director Name Role Phone Unavailable Primary Care Provider Unavailabl e Reason for Visit * Reason Comments Med Refill Encounter Details Date Type Department Care Team (Late st Contact Info) Description 06/23/2024 Refill [facility] [address] [place] [address] Pop Oneil DDS [address], [place] [id number] Social History Tobacco Use Types Packs/Day Years [...] documented in this encounter Plan of Treatment Upcoming Encounters Date Type Department Care Team (Late st Contact Info) Description 09/22/2025 10:00 AM EST Office Visit [facility] [address] [place] [address] Rebekah Curiel documented as of this encounter Visit Diagnoses Not on filedocumented in this encounter
--- OUTSIDE RECORDS SUMMARY | 2025-03-17 14:48 | XMS_ITS | Clinical Summary ---
Author Organization [employer] Address [address] [facility] [address] [place] [address] Care Team Providers Care Chemical Research Worker Name Role Phone Unavailable Primary Care [...] Sod Fluoride-Potassiu m Nitrate 1.1-5 % paste [place] teeth for 2 minutes, morning and night. Spit, do not rinse. Do not eat or drink anything for 30 minutes following brushing. 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 Localized gingival recession 12/27/2023 Periodontal disease 12/27/2023 Dental calculus 12/27/2023 Encounters Date Type Department Care Team Description 03/02/2025 Orders Only GENERIC EXTERNAL DATA DEPARTMENT Provider, Generic External Data 01/25/2025 Orders Only [facility] External Provider, [facility] from Last 3 Months Immunizations Immunization Administration Dates Next Due Moderna Covid-19 Vaccine [...] Mass Index - - Plan of Treatment Upcoming Encounters Date Type Department Care Team (Late st Contact Info) Description 09/22/2025 10:00 AM EST Office Visit [facility] [address] [place] [address] Rebekah Curiel Health Maintenance Due Date Last Done Comments CT Colonography 1975 Colonoscopy 1975 Colorectal Cancer Screening 1975 Depression Screening 1977 FIT DNA/Cologuard 1977 FIT 1977 FOBT 1975 HIV Screening 1975 Lipid Panel 1977 SDOH Screening 1977 Sigmoidoscopy 1977 Alcohol/Substance Use Screening 1989 Family Planning (PISQ) 02/06/1992 Hepatitis C Screening 1995 Pap Smear 1998 Cervical Cancer Screening 2007 HPV/Cotest 2007 Dental Oral Exam 06/10/2024 12/10/2023, , 04/20/2016, Additional history exists Dental Prophylaxis 06/27/2024 12/27/2023, 1 12/21/2017, 04/17/2018, Additional history exists COVID-19 Vaccine ( season) 2024 08/18/2024, 01/03/2023, 09/20/2021, Additional history exists Dental X-Ray: Bitewings 02/07/2025 02/07/20 24, 12/10/2023, 11/29/2023, Additional history exists Tobacco Screening [...] Completed 07/09/2024, , 09/27/2023, Additional history exists Zoster Vaccines Completed 08/13/2024, 06/11/2024 HIB Vaccines Aged Out No longer eligi [...] Procedure Name Priority Date/Time Associated Diagnosis Comments CYTOPATH-CELL ENHANCED Routine 5:18 PM EDT BI MAMMOGRAM SCREENING TOMOSYNTHESIS BILATERAL Routine 02/02/2025 2:20 PM EDT MR KNEE WO CONTRAST RIGHT Routine 01/25/2025 [...] Recently Relevant to Health Maintenance Results * Cytopath-cell enhanced (03/02/2025 5:18 PM EDT) 03/02/2025 5:18 PM EDT 03/03/2025 7:18 AM EDT [facility] - 03/04/2025 11:59 AM EDT ----- ------- Name: Marilyn Wells I ? Age/Sex: 50/F ? : 1975 Unit#: [id number] ?? Attend Dr: Fanta Sheehan ?Re03/02/25 ?Status: DEP REF ? Location: HO.LNP ?Disch: ? ----- ------- SPEC : [id number] ? RECD: 03/03/25 ? STATUS: ??SOUT ? REQ NUM: [id number] ? ELVIS: 03/02/25-1717 ? SUBM DR: Fanta Sheehan ? ENTERED: ??03/03/25 ?SP TYPE: Cytology ? OTHR DR: Rebecca Perez MD ? ORDERED: ??Cyto-enhanced ? Diagnosis ?? Urine: ??Negative for high-grade urothelial carcinoma. ??See comment. ? COMMENT: Cellular specimen consisting of a rare small group of urothelial cells, which ?? are small/medium in size and have variable chromatin. ??The background has few single ?? urothelial cells without atypia abundant squamous cells and few chronic inflammatory ?? cells. ??The differential diagnosis for these types of groups of urothelial cells includes ?? infection, trauma (e.g. stones) and other types of urothelial neoplasms. ?Clinical History Other microscopic hematuria ? Material Received ?? Urine ? Gross Description Received is 50 cc of clear yellow fluid from which a ThinPrep slide is prepared. Copies To: ?? Fanta Sheehan OVEN PRESS TENDER-BC ?? [facility] ?? [address] [place] [address] [address] ?? [place] [address] ?? [phone] ?? [email or web address] ?? Rebecca Perez MD ?? [facility] ?? [address] [facility] [address] ?? [place] [address] ?? [phone] ----- ------- Signed (signature on file) Mehran Villalobos MD 03/04/25 1159 ? ----- ------- ? END OF REPORT ? us Generic External Data Provider LAB CYTOLOGY ALMA DELIAE FIORDALIZA Final Result [facility] [address] [place] [phone] * BI Mammogram Screening Tomosynthesis Bilateral (02/02/2025 2:20 PM EDT) Anatomical Region Laterality Modality Breast Bilateral Mammography 02/02/2025 2:20 PM EDT Narrative 02/02/2025 5:43 PM EDT ? [facility] ? [address] ?[place] [address] ?[phone] ? Mammography Report ? Signed ? Patient: Russell,Marilyn I ?MR#: [id number] ?? [id number] ? : 1975 ?Acct:[id number] ? Age/Sex: 49 / F ?ADM Date: 04/01/25 ? Loc: HO.MAMMO ? Attending Dr: Jerri Antunez MD ? Ordering Physician: Jerri Daniel MD ? Results: 0Incomplete: Needs Additional Imaging ?? Evaluation ? Date of Service: 02/02/25 ?Follow Up: Additional Imagi ?? ng ? Procedure(s): MM tomosynthesis screening BI ?? Accession Number(s): [id number] ? cc: Jerri Daniel MD; Rebecca Perez [...] ??Pepper Guzman DO ??02/02/2025 05:40 PM EDT ?? RP ? Dictated By: ?Pepper Guzman DO ? Signed By: ?<Electronically signed by Pepper Guzman, DO in OV> ? 02/02/250 ? DD/ 1420 ? TD/TT: 02/02/25 1441 ? Alteration Specialist: ? Procedure Note Donotuseinterpreter, Image - 02/04/2025 Zayra [facility] [address] [place] [address] Mammography Report Signed Patient: Marilyn Wells IMR#: [id number] : 1975Acct:[id number] Age/Sex: 49 / FADM Date: 02/02/25 Loc: HO.MAMMO Attending Dr: Jerri Antunez MD Ordering Physician: Jerri Daniel MD Results: 0Incomplete: Needs Additional Imaging Evaluation Date of Service: 02/02/25Follow Up: Additional Imagi ng Procedure(s): MM tomosynthesis screening BI Accession Number(s): [id number] cc: Jerri Daniel MD; Rebecca Perez MD [...] 02/02/25 1740 DD/ 1420 TD/TT: 02/02/25 1441 Alteration Specialist: [facility] External Provider IMG BI PROCEDURES Edited Result - Final * MR Knee w/o Contrast Right (01/25/2025 5:45 PM EDT) Anatomical Region Laterality Modality Magnetic Resonan ce 01/25/2025 5:45 PM EDT Narrative 01/26/2025 10:12 AM EDT ? [facility] ?[address] ?[place] [address] ? Magnetic Resonance Report ? Signed ? Patient: Marilyn Wells I ?MR#: [id number] ?? [id number] ? : 1975 ?Acct:[id number] ? Age/Sex: 49 / F ?ADM Date: 01/25/25 ? Loc: HO.MRI ? Attending Dr: Archana Donald MD ? Ordering Physician: Archana Donald MD ?? Date of Service: 01/25/25 ?? Procedure(s): MR knee RT wo con ?? Accession Number(s): [id number] ? cc: Archana Donald MD; Rebecca Perez [...] DD/ 1745 ? TD/TT: 01/25/25 1810 ? Alteration Specialist: ? Procedure Note Juan Gill - 01/26/[address] [address] Magnetic Resonance Report Signed Patient: Marilyn Wells [facility]#: [id number] : 1975Acct:[id number] Age/Sex: 49 / FADM Date: 01/25/25 Loc: HO.MRI Attending Dr: Archana Donald MD Ordering Physician: Archana Donald MD Date of Service: 01/25/25 Procedure(s): MR knee RT wo con Accession Number(s): [id number] cc: Archana Donald MD; Rebecca Perez MD [...] Conway MD in OV> 01/26/25 1009 DD/ 1745 TD/TT: 01/25/25 1810 Alteration Specialist: [facility] External Provider IMG MRI PROCEDURES Edited Result - Final * Culture, Urine, Routine (01/06/2025 2:00 PM EST) Urine Urine specimen obtained by clean catch procedure / Unknown 01/06/2025 2:00 PM EST 01/06/2025 3:23 PM EST Comment:UACC Narrative [facility] - 01/08/2025 12:08 PM EST Urine Culture Report Result Urine Culture 10,000 to 50,000 cfu/ml Urine Culture Mixed bacterial jyoti characteristic of Urine Culture urogenital contamination. Specimen Source: Urine clean catch [facility] External Data Provider LAB MICROBIOLOGY - GENERAL ORDERABLES Final Result Performing Organization Address City/[facility]/ZIP Co de Phone Number [facility] [address] [place] [phone] * DNA (ds) Antibody (12/29/2024 12:17 PM EST) Pathologist [facility] Anti DNA DS Antibody 3 IU/mL [facility] Comment:IU/mL Interpretation < or = 4 Negative 5-9 Indeterminate > or = 10 PositiveTHIS TEST WAS PERFORMED AT:[employer] [address] [id number] PAREDES MD 12/29/2024 12:1 7 PM EST 12/29/2024 12:17 PM EST Generic External Data Provider LAB BLOOD ORDERAB LES Final Result Performing Organization Address City/[facility] Co de Phone Number [facility] [address] [place] [phone] * Complement Component C3c (12/29/2024 12:17 PM EST) Pathologist [facility] Complement C3 127 83 - 193 mg/dL [facility] Comment:THIS TEST WAS PERFOR MED AT:[employer] [address] [id number] PAREDES MD 12/29/2024 12:1 7 PM EST 12/29/2024 12:17 PM EST us Generic External Data Provider LAB BLOOD ORDERAB LES Final Result Performing Organization Address [facility] de Phone Number [facility] [address] [place] [phone] * Complement Component C4c (12/29/2024 12:17 PM EST) Complement C4 28 15 - 57 mg/dL [facility] Comment:THIS TEST WAS PERFOR MED AT:[employer] [address] [id number] PAREDES MD 12/29/2024 12:1 7 PM EST 12/29/2024 12:17 PM EST Generic External Data Provider LAB BLOOD ORDERAB LES Final Result Performing Organization Address [facility] Number [facility] [address] [place] [phone] * Protein Creatinine Ratio, Urine (12/29/2024 12:09 PM EST) Creatinine, Urine 186.84 mg/dL [facility] Protein, Total, Random Urine 12 <12 mg/dL [facility] Protein/Creati nine Ratio, Ur 0.06 <0.2 [facility] Comment:The spot urine prote in:creatinine ratio may increase to 0.3during normal . 12/29/2024 12:0 9 PM EST 12/29/2024 12:29 PM EST us Generic External Data Provider LAB URINE ORDERAB LES Final Result Performing Organization Address [facility]/ZIP Co de Phone Number [facility] [address] [place] [phone] from Last 3 Months Insurance * Guarantor: Marilyn Wells I Account Type Relation to Patient Date of Phone Billing Address Personal/Family Self [address] [place] [address] [facility] STANDARD DENTAL-[facility] MEDICAID STAND ADULT
--- OUTSIDE RECORDS SUMMARY | 2025-03-17 14:48 | XMS_ITS | Continuity of Care Document ---
Author Organization [facility] Address [address] [place] [address]- Care Team Providers Care Telecommunications Clerk Name Role Phone Broderick Kidd MD Primary Care Physician [phone] Encounter [facility] Date(s): 01/13/25 - 03/13/25 [facility] [address] [place] [phone]- Attending Physician: Not on Staff, Attending MD Referring Physician: Francine Drake Encounter Type: Pre-OutPatient One Time Allergies, Adverse Reactions, Alerts No Known Allergies [...] 04/25/23 Given tetanus/diphtheria/pertussis, acel(Tdap) 3 01/28/13 Given [id number] bivalent booster vax 01/03/23 Recorded SARS-CoV-2 (COVID-19) [...] 07/05/08 Recor ded 1Result Comment: received at [facility] on [facility] House 2Admin Note: flulaval vis given vis date 05/05/2012 3Admin Note: VIS GIVEN VIS DATE 11/27/2011 4Result Comment: received 2nd dose at [facility] 5Result Comment: received at [facility] Medications acetaminophen 500 mg oral tablet 2 tablet, By Mouth, Every 8 hours, PRN NEEDED FOR PAIN, # 100 tablet, 3 Refills, Maintenance, 12/02/24 5:10:00 PM EST, [facility] 173, cm, 12/02/24 16:39:00 EST, Height, 108.1, kg,10/16/24 8:53:00 EST, Dry Weight Start Date: 12/02/24 Status: Ordered Quantity: 100.0 Unit: tablet Repeat number: 4 Ajovy Autoinjector 225 mg/1.5 mL subcutaneous solution = 225 mg, Subcutaneous Injection, Every 28 days, # 1 kit, 5 Refills, Maintenance, 01/20/25 6:57:00 AM EDT, [facility], Partial fill upon patient request if the prescription is for a schedule II opioid drug., 173, cm, 12/02/24 16:39:00 EST, Height, 108.1, kg, 10/16/24 8:53:00 EST, Dry Weight Start Date: 01/20/25 Status: Ordered Quantity: 1.0 Unit: kit Repeat number: 6 amitriptyline 10 mg oral tablet 1, tablet, By Mouth, Daily at bedtime, # 90 tablet, Refills 0, Tot. Refills 0, Maintenance, 10/16/24 9:24:00 AM EST, Route to Pharmacy Electronically, [id number], 173, cm, 10/16/24 8:53:00 EST, Height, 108.1, kg, 10/16/24 8:53:00 EST, Dry Weight Start Date: 10/16/24 Status: Ordered Quantity: 90.0 Unit: tablet Repeat number: 1 ammonium lactate 5% topical lotion 1 application, Topically, 2 times a day, PRN Dry Skin, apply and rub in well, # 120 Gm, 0 Refills, Maintenance, 12/05/22 5:09:00 PM EST, Lotion, [id number], Partial fill upon [...] By Mouth, Daily, REFILLS PER PCP OR SCRAP BURNER, # 90 tablet, 2 Refills, Maintenance, 01/06/25 11:31:00 AM EST, [facility], 173, cm, 12/02/24 16:39:00 EST, Height, 108.1, kg, 10/16/24 8:53:00 EST, Dry Weight Start Date: 01/06/25 Status: Ordered Quantity: 90.0 Unit: tablet Repeat number: 1 atorvastatin 80 mg oral tablet = 80 mg, By Mouth, Daily at bedtime, # 90 capsule, 3 Refills, Maintenance, 11/02/24 1:22:00 PM EST,Tablet, [facility] #[id number], Partial fill [...] 5 Refills, Maintenance, 11/02/24 1:23:00 PM EST, [facility] #[id number], 173, cm, 11/02/24 13:12:00 EST, Height, [...] NEEDED FOR NEUROPATHIC PAIN, # 100 Gm, 2 Refills, Maintenance, 03/02/25 2:28:00 PM EDT, [facility], 25, APPLY TOPICALLY FOUR TIMES A DAYAS NEEDED FOR NEUROPATHIC PAIN, 173, cm, 02/08/25 14:59:00 EDT, Height, 108.1, kg, 10/16/24 8:53:00EST, Dry Weight Start Date: 03/02/25 Status: Ordered Quantity: 100.0 Unit: g Repeat number: 1 docusate sodium 100 mg oral tablet 1 tablet = 100 mg, By Mouth, 2 times a day, to help prevent constipation with plenty of water, # 60tablet, 11 Refills, Maintenance, 01/28/25 6:09:00 PM EDT, [facility], Partial fill upon patient request if the [...] 2:26:00 PM EST, Route to Pharmacy Electronically, [facility]., 173, cm, 12/02/24 16:39:00 EST, Height, 108.1, kg, 10/16/24 8:53:00 EST, Dry Weight Start Date: 01/01/25 Status: Ordered Quantity: 180.0 Unit: tablet Repeat number: 2 lidocaine 5% topical film 1 patch, Topically, Daily, PRN NEEDED FOR PAIN MILD, REMOVE AFTER 12 HOURS, # 30 patch, 0 Refills, Maintenance, 02/05/23 11:52:00 PM EDT, [id number], 30, APPLY 1 PATCH TOPICALLY DAILY,X30 DAYS [...] 2:48:00 PM EST, Route to Pharmacy Electronically, [id number], 165.1, cm, 12/05/22 15:21:00 EST, Height Start Date: 12/31/22 Stop Date: 01/30/23 Status: Ordered Quantity: 60.0 Unit: tablet Repeat number: 1 losartan 50 mg oral tablet 1 tablet, By Mouth, Daily, # 90 tablet, 1 Refills, Maintenance, 09/16/24 10:17:00 AM EST, [facility]/pharmacy #[id number], 173, cm, 08/19/24 12:16:00 EDT, Height, 101.4, kg, 04/27/24 14:38:00 EDT, Dry Weight Start Date: 09/16/24 Status: Ordered Quantity: 90.0 Unit: tablet Repeat number: 2 meclizine 25 mg oral tablet 1 tablet, By Mouth, 2 times a day, PRN NEEDED FOR DIZZINESS, # 60 tablet, 3 Refills, Maintenance, 01/28/25 5:58:00 PM EDT, [facility], [facility], cm, 01/28/25 17:21:00 EDT, Height, 108.1,kg, [...] Maintenance, 01/28/25 5:58:00 PM EDT, REC Powder, [facility], Partial fill upon patient request if the [...] 11 Refills, Maintenance, 11/13/24 12:20:00 PM EST, [facility]., 173, cm, 11/02/24 13:28:00 EST, Height, 108.1, kg, 10/16/24 8:53:00 EST, Dry Weight Start Date: 11/13/24 Status: Ordered Quantity: 30.0 Unit: tablet Repeat number: 12 naratriptan 2.5 mg oral tablet See Instructions, TAKE 1 TABLET BY MOUTH EVERY DAY NEEDED FOR MIGRAINE, MAY REPEAT DOSE AFTER 4 HOURS NEEDED, # 18 tablet, 3 Refills, Maintenance, 03/02/25 10:35:00 AM EDT, [facility],173, cm, 02/08/25 14:59:00 EDT, Height, 108.1, kg, 10/16/24 8:53:00 EST, Dry Weight Start Date: 03/02/25 Status: Ordered Quantity: 18.0 Unit: tablet Repeat number: 1 nicotine 21 mg/24 hr transdermal film, extended release 1 patch, Topically, Daily, for 14 days, # 14 patch, 0 Refills, Acute 03/22/25 5:32:00 PM EDT, :32:00 PM EDT, Patch, [facility] Partial fill upon patient request if the prescription is for a schedule II opioid drug., 1 patch Topically Daily,x14 days, 173, cm, 03/03/25 8:55:00EDT, Height, 108.1, kg, 10/16/24 8:53:00 EST, Dry Weight Start Date: 03/08/25 Stop Date: 03/22/25 Status: Ordered Quantity: 14.0 Unit: patch Repeat number: 1 nitroglycerin 0.4 mg sublingual [...] 0 Refills, Maintenance, 09/23/23 10:53:00 AM EST, [id number], 165, cm, 09/12/23 13:12:00 EST, Height, 100, kg, 04/04/23 16:15:00 EDT, Dry Weight Start Date: 09/23/23 Status: Ordered Quantity: 30.0 Unit: tablet Repeat number: 1 pantoprazole 20 mg oral delayed release tablet = 20 mg, By Mouth, Daily, Take for next 12 months while taking aspirin and Brillinta. Refill per PCP or Housing Manager., # 90 tablet, 3 Refills, Maintenance, 11/02/24 [...] day, # 60 capsule, 0 Refills, Maintenance, 02/20/25 6:37:00 PM EDT, [facility], dose reduced to 150mg bid 08/17/24., 173, cm, 02/08/25 14:59:00 EDT, Height, 108.1, kg, 10/16/24 8:53:00 EST, Dry Weight Start Date: 02/20/25 Status: Ordered Quantity: 60.0 Unit: capsule Repeat [...] Daily, # 90 tablet, 3 Refills, Maintenance, 03/05/25 4:18:00 PM EDT, [facility]., 173, cm, 03/03/25 8:55:00 EDT, Height, 108.1, kg, 10/16/24 8:53:00 EST, Dry Weight Start Date: 03/05/25 Status: Ordered Quantity: 90.0 Unit: tablet Repeat number: 4 RIBOFLAVIN 400 MG TABLET RIBOFLAVIN 400 MG [...] 11:21:00 AM EST, Route to Pharmacy Electronically, [id number], [facility] #[id number], 173, cm, 12/02/24 16:39:00 EST, Height, 108.1, kg, 10/16/24 8:53:00 EST, Dry Weight Start Date: 12/24/24 Status: Ordered Quantity: 30.6 Unit: each Repeat number: 6 Ventolin HFA 108 mcg/inh inhalation aerosol with adapter 2 puffs, Inhalation, Every 6 hours, PRN NEEDED FOR WHEEZE OR FOR SHORTNESS OF BREATH, # 18 each,5 Refills, Maintenance, 11/27/24 4:28:00 PM EST, [facility], 173, cm, 11/02/24 13:28:00 EST, Height, 108.1, kg, 10/16/24 8:53:00 EST, Dry Weight Start Date: 11/27/24 Status: Ordered Quantity: 18.0 Unit: each Repeat number: 6 Vitamin B-12 1000 mcg oral tablet See Instructions, TAKE 1 TABLET BY MOUTH EVERY DAY, # 90 tablet, Refills 0, Maintenance, 12/04/24 1:50:00 PM EST, Instructions Replace Required Details, Route to Pharmacy Electronically, [facility], 173, cm, 12/02/24 16:39:00 EST, [...] 0 Refills, Maintenance, 08/26/24 11:05:00 AM EDT, [id number], Partial fill upon patient request if the prescription is for a schedule II opioid drug., 173, cm, 08/19/24 12:16:00 EDT, Height, 101.4, kg, 04/27/24 14:38:00 EDT, Dry Weight Start Date: 08/26/24 Stop Date: 09/23/24 Status: Ordered Quantity: 4.0 Unit: each Repeat number: 1 Zepbound Pen 10 mg/0.5 mL subcutaneous solution = 10 mg, Subcutaneous Infusion, Every week, # 4 each, 5 Refills, Maintenance, 01/28/25 6:00:00 PM EDT, [facility], dose increase to 10mg 01/28/25., 173, cm, 01/28/25 17:21:00 EDT, Height, 108.1, kg, 10/16/24 8:53:00 EST, Dry Weight Start Date: 01/28/25 Status: Ordered Quantity: 4.0 Unit: each Repeat number: 6 Problem List Condition Confirmation Course Effective Dates [...] Active 1Follows with therapist and psychiatrist at House per previous notes 2PFTs show no obstruction. However has h/o asthma. Ct chest in 07/27 and pulm note says restrictive lung disease mild similiar to findings on PFT 3Follows with therapist and psychiatrist at House per previous notes 4Sleep study in 2015. [...] Care Nurse Name: Broderick Kidd MD Position: [facility] Resident Member Role: PCP Address: [address] [place] [address] Telecom: Care Team Related Persons Name: MARIO GERARD Name: CARI GARCÍA Name: NOELLE MAY Insurance Providers Guarantor name: TAYLOR SALAZAR Health Plan Information #: 1 Payer: [employer] Member Number: [id number] Policy Number: NA Group Number: [id number] Health Plan Information #: 2 Payer: [facility] Member Number: [id number] Policy Number: NA Group Number: NA
== END ==
LOC: HO.CARD 14:43
PROVIDERS: PCP Student in an Organized Health Care Education/Training Program; Visit Provider Internal Medicine Cardiovascular Disease
DX: R06.02 Shortness of breath (principal)
CPT/HCPCS: 93306; Q9957

== ENCOUNTER → 2025-03-17 14:45 | Outpatient (BNV) | payer OTHER, SELFPAY | PROVIDERS: PCP Student in an Organized Health Care Education/Training Program; Visit Provider Internal Medicine Cardiovascular Disease | DX: I34.0 Nonrheumatic mitral (valve) insufficiency (principal) | CPT/HCPCS: 93306 ==

== ENCOUNTER 2025-03-24 10:07 | Outpatient (AMB) | payer OTHER, SELFPAY ==
--- NOTE | 2025-03-24 10:12 | A.OFFVIS_ITS ---
Vital Signs 03/24/25 10:18 Height 5 ft 6 in Weight 229 lb BMI 37.0 Intake Visit Reasons: INJ- RT knee Euflexxa #1 Intake Note: Marilyn is a 50 year old female who presents today for a right knee Euflexxa injection #1. Allergies No Known Allergies Allergy (Verified 03/24/25 10:17) HPI HPI INJ- RT knee Euflexxa #1: Details: 50 yo female presents today for #1 euflexxa right knee. [facility] Medical History Non-ST elevated myocardial infarction (non-STEMI) CAD (coronary artery disease) Smoker Dvt femoral (deep venous thrombosis) Gout GERD (gastroesophageal reflux disease) Vertigo Asthma Migraine Anxiety and depression Fibromyalgia Neuropathy H/O Sjogren's disease Discoid lupus Lupus Surgical History S/P cardiac catheterization Hx of hysterectomy Hx of thumb surgery Hx of knee surgery Family History Other Arthritis Lupus Social History Household Members: Family Housing: Apartment Do you presently have visiting nurse or other home services: No Alcohol intake: former Patient Tobacco Use Status: Current everyday Tobacco user Tobacco use type: Cigarette Cigarette Packs Per Day: 0.5 Cigarettes Per Day: 10.0 service: No Current occupational status: unemployed Review of Systems Const All systems reviewed & are unremarkable except as noted in HPI and below Physical Exam Vital Signs: BMI result Body Mass Index 37.0 Extrem Other: Right knee is normal to inspection. No joint effusion present. She has no open wounds or abrasion. She does have tenderness directly over the anterior portion of the patella. No tenderness over the quad tendon or patellar tendon. No ligamentous laxity. She has full range of motion. Calf supple and nontender neurovascularly intact. Office Procedures AMB Joint Injection/Aspiration Joint Injection/Aspiration Details: #1 euflexxa Primary Site: right knee Prep: site was prepped using aseptic technique, ethochloride spray was applied and injection warnings given Injected: in the joint Approach Used: anterolateral Procedure: The patient tolerated the procedure well Coding 36127 - Glenohumeral/Tronchanteric Bursa/Intraarticular Procedure code (CPT) selection complete Assessment & Plan Assessment & Plan (1) Osteoarthritis of right knee: Code(s): M17.11 - Unilateral primary osteoarthritis, right knee Category: Medical Qualifiers: Osteoarthritis type: primary Qualified Code(s): M17.11 - Unilateral primary osteoarthritis, right knee Plan: Plan was to proceed with gel injection today. #1 euflexxa right knee Injection performed today which the patient tolerated well. She will rest ice and use anti-inflammatories as needed for the next several days. I will see her back in 1 week for injection number 2 Coding Level of Care Code Procedure Only Diagnoses Primary osteoarthritis of right knee M17.11 Osteoarthritis type: primary CPT Codes Coding - Joint 7: 09122 - Glenohumeral/Tronchanteric Bursa/Intraarticular ([id number])
[2025-03-24 10:18] VITALS: BMI 37.0
--- OUTSIDE RECORDS SUMMARY | 2025-03-24 11:36 | XMS_ITS | Clinical Summary ---
Author Organization [facility] Address [address] [facility] [address] [place] [address] Care Team Providers Care Senior Process Analyst Name Role Phone Unavailable Primary Care [...] Sod Fluoride-Potassiu m Nitrate 1.1-5 % paste [place] teeth for 2 minutes, morning and night. [...] Provider, Generic External Data 01/25/2025 Orders Only [facility] External Provider, [facility] from Last 3 Months Immunizations Immunization Administration [...] Description 09/22/2025 10:00 AM EST Office Visit [facility] [address] [place] [address] Rebekah Curiel Health Maintenance Due Date Last Done Comments CT Colonography 1977 Colonoscopy 1977 Colorectal Cancer Screening 1977 Depression Screening 1977 FIT DNA/Cologuard 1977 FIT 1977 FOBT 1977 HIV Screening 1977 Lipid Panel 1977 SDOH Screening 1977 Sigmoidoscopy 1977 Disability Screening 1977 Alcohol/Substance Use Screening 1989 Family Planning (PISQ) 02/06/1992 Hepatitis C Screening 1995 Pap Smear 1998 Cervical Cancer Screening 2007 HPV/Cotest 2007 Dental Oral Exam 06/10/2024 12/10/2023, , 04/20/2016, Additional history exists Dental Prophylaxis 06/27/2024 12/27/2023, 1 12/21/2017, 04/17/2018, Additional history exists Dental X-Ray: Bitewings 02/07/2025 02/07/20 24, 12/10/2023, 11/29/2023, Additional history exists COVID-19 Vaccine (6 - Moderna risk 2023- season) 2025 08/18/2024, 01/03/2023, 09/20/2021, Additional history exists Tobacco Screening 04/06/2025 04/06/2024 Dental X-Ray: Full Mouth 12/11/2026 024, 11/24/2015, [...] patient's age to complete this topic Meningococcal B Vaccine Aged Out No l onger eligible based on patient's age to complete [...] 5:18 PM EDT 03/03/2025 7:18 AM EDT Narrative [facility]S - 03/04/2025 11:59 AM EDT ----- ------- Name: Marilyn Wells I ? Age/Sex: 50/F ? : 1975 Unit#: [id number] ?? Attend Dr: Fanta Sheehan ?Re03/02/25 ?Status: DEP REF ? Location: HO.LNP ?Disch: ? ----- ------- SPEC : [id number] ? RECD: 03/03/25-717 ? STATUS: ??SOUT ? REQ NUM: [id number] ? ELVIS: 03/02/25-1717 ? SUBM DR: Fanta [...] is prepared. Copies To: ?? Fanta Sheehan CARPET OR RUG LAYER HELPER-BC ?? [facility] ?? [address] [place] [address] [address] ?? [place] [address] ?? [phone] ?? [email or web address] ?? Rebecca Perez MD ?? [facility] ?? [address] [facility] [address] ?? [place] [address] ?? [phone] ----- ------- Signed (signature on file) Mehran Villalobos MD 03/04/25 1159 ? ----- ------- ? END OF REPORT ? us Generic External Data Provider LAB CYTOLOGY ALMA DELIAE FIORDALIZA Final Result [facility] [address] [place] [address] [phone] * BI Mammogram Screening Tomosynthesis Bilateral (02/02/2025 2:20 PM EDT) Anatomical Region Laterality Modality Breast Bilateral Mammography 02/02/2025 2:20 PM EDT Narrative 02/02/2025 5:43 PM EDT ? [facility] [place] ? [address] [facility] ?[place] [address] ?[phone] ? Mammography Report ? Signed ? Patient: Marilyn Wells I ?MR#: [id number] ?? [id number] ? : 1975 ?Acct:[id number] ? Age/Sex: 49 / F ?ADM Date: 04/01/25 ? Loc: HO.MAMMO ? Attending Dr: Jerri Antunez MD ? Ordering Physician: Jerri Daniel MD ? Results: 0Incomplete: Needs Additional Imaging ?? Evaluation ? Date of Service: 02/02/25 ?Follow Up: Additional Imagi ?? ng ? Procedure(s): MM tomosynthesis screening BI ?? Accession Number(s): [id number] ? cc: Jerri Daniel MD; Rebecca Perez [...] by Pepper Guzman, DO in OV> ? 02/02/251739 ? DD/ 1420 ? TD/TT: 02/02/25 1441 ? Employment Service Specialist: ? Procedure Note Jairo, Juan - 02/04/[address] [facility] [address] [place] [address] Mammography Report Signed Patient: Marilyn Wells IMR#: [id number] : 1975Acct:[id number] Age/Sex: 49 / FADM Date: 02/02/25 Loc: HO.MAMMO Attending Dr: Jerri Antunez MD Ordering Physician: Jerri Daniel MD Results: 0Incomplete: Needs Additional Imaging Evaluation Date of Service: 02/02/25Follow Up: Additional Imagi ng Procedure(s): MM tomosynthesis screening BI Accession Number(s): [id number] cc: Jerri Daniel MD; Rebecca Perez MD [...] 02/02/25 1740 DD/ 1420 TD/TT: 02/02/25 1441 Employment Service Specialist: [facility] External Provider IMG BI PROCEDURES Edited Result - Final * MR Knee w/o Contrast Right (01/25/2025 5:45 PM EDT) Anatomical Region Laterality Modality Magnetic Resonan ce 01/25/2025 5:45 PM EDT Narrative 01/26/2025 10:12 AM EDT ? [facility] ?[address] ?[place] [address] ? Magnetic Resonance Report ? Signed ? Patient: Marilyn Wells I ?MR#: [id number] ?? [id number] ? : 1975 ?Acct:[id number] ? Age/Sex: 49 / F ?ADM Date: 01/25/25 ? Loc: HO.MRI ? Attending Dr: Archana Donald MD ? Ordering Physician: Archana Donald MD ?? Date of Service: 01/25/25 ?? Procedure(s): MR knee RT wo con ?? Accession Number(s): [id number] ? cc: Archana Donald MD; Rebecca Perez [...] DD/ 1745 ? TD/TT: 01/25/25 1810 ? Employment Service Specialist: ? Procedure Note Jairo, Image - 01/26/[address] [address] Magnetic Resonance Report Signed Patient: Marilyn Wells [facility]#: [id number] : 1975Acct:[id number] Age/Sex: 49 / FADM Date: 01/25/25 Loc: HO.MRI Attending Dr: Archana Donald MD Ordering Physician: Archana Donald MD Date of Service: 01/25/25 Procedure(s): MR knee RT wo con Accession Number(s): [id number] cc: Archana Donald MD; Rebecca Perez MD [...] Shubham Conway MD 01/26/2025 10:09 AM EDT RP Dictated By: Shubham Conway MD Signed By: <Electronically signed by Shubham Conway MD in OV> 01/26/25 1009 DD/ 1745 TD/TT: 01/25/25 1810 Employment Service Specialist: [facility] External Provider IMG MRI PROCEDURES Edited Result - Final * Culture, Urine, Routine (01/06/2025 2:00 PM EST) Urine Urine specimen obtained by clean catch procedure / Unknown 01/06/2025 2:00 PM EST 01/06/2025 3:23 PM EST Comment:UACC Narrative [facility] - 01/08/2025 12:08 PM EST Urine Culture Report Result Urine Culture 10,000 to 50,000 cfu/ml Urine Culture Mixed bacterial jyoti characteristic of Urine Culture urogenital contamination. Specimen Source: Urine clean catch Generic External Data Provider LAB MICROBIOLOGY - GENERAL ORDERABLES Final Result Performing Organization Address City/[facility]/ZIP Co de Phone Number [facility] [address] [place] [phone] * DNA (ds) Antibody (12/29/2024 12:17 PM EST) Anti DNA DS Antibody 3 IU/mL [facility] Comment:IU/mL Interpretation < or = 4 Negative 5-9 Indeterminate > or = 10 PositiveTHIS TEST WAS PERFORMED AT:[facility] [place] [phone] PAREDES MD 12/29/2024 12:1 7 PM EST 12/29/2024 12:17 PM EST Generic External Data Provider LAB BLOOD ORDERAB LES Final Result Performing Organization Address [facility]/ZIP Co de Phone Number [facility] [address] [place] [phone] * Complement Component C3c (12/29/2024 12:17 PM EST) Complement C3 127 83 - 193 mg/dL [facility] Comment:THIS TEST WAS PERFOR MED AT:[facility] [place] [phone] PAREDES MD 12/29/2024 12:1 7 PM EST 12/29/2024 12:17 PM EST Generic External Data Provider LAB BLOOD ORDERAB LES Final Result Performing Organization Address [facility] Co de Phone Number [facility] [address] [place] [phone] * Complement Component C4c (12/29/2024 12:17 PM EST) Complement C4 28 15 - 57 mg/dL [facility] Comment:THIS TEST WAS PERFOR MED AT:[facility] [place] [phone] PAREDES MD 12/29/2024 12:1 7 PM EST 12/29/2024 12:17 PM EST Generic External Data Provider LAB BLOOD ORDERAB LES Final Result Performing Organization Address [facility] Co de Phone Number [facility] [address] [place] [phone] * Protein Creatinine Ratio, Urine (12/29/2024 [...] Provider LAB URINE ORDERAB LES Final Result [facility] [address] [place] [phone] from Last 3 Months Insurance * Guarantor: Marilyn Wells I Account Type Relation to Patient Date of Phone Billing Address Personal/Family Self [address] [place] [address] [facility] STANDARD * Guarantor: Marilyn Wells I Account Type Relation to Patient Date of Phone Billing Address Dental Self [address] [place] [address] [facility] MEDICAID STAND ADULT * Guarantor: Marilyn Wells I Account Type Relation to Patient Date of Phone Billing Address Personal/Family Self [address] [place] [address] * Guarantor: Marilyn Wells I Account Type Relation to Patient Date of Phone Billing Address Personal/Family Self [address] [place] [address] * Guarantor: Marilyn Wells I Account Type Relation to Patient Date of Phone Billing Address Personal/Family Self [address] [place] [address]
--- OUTSIDE RECORDS SUMMARY | 2025-03-24 11:36 | XMS_ITS | Encounter Summary ---
Author Organization [email or web address] [facility] Address [address] [place] [address] 7[address] [place] [address] Care Team Providers Care Home Builder Name Role Phone Unavailable Primary Care Provider Unavailabl e Reason for Visit * Reason Comments Med Refill Encounter Details Date Type Department Care Team (Late st Contact Info) Description 06/23/2024 Refill [facility] [address] [place] [address] Pop Oneil DDS [address] [place], [place] [phone] Social History Tobacco Use Types Packs/Day Years [...] Description 09/22/2025 10:00 AM EST Office Visit [facility] [address] [place] [address] Rebekah Curiel documented as of this encounter Visit Diagnoses Not on filedocumented in this encounter
== END 2025-03-24 11:04 | disposition home or self-care (01) ==
LOC: HO.HOS 10:08
PROVIDERS: PCP Student in an Organized Health Care Education/Training Program; Visit Provider Physician Assistant
DX: M17.11 Unilateral primary osteoarthritis, right knee (principal)
CPT/HCPCS: 20610

== ENCOUNTER → 2025-03-24 10:07 | Outpatient (BNVA) | payer OTHER, SELFPAY | PROVIDERS: PCP Student in an Organized Health Care Education/Training Program; Visit Provider Physician Assistant | DX: M17.11 Unilateral primary osteoarthritis, right knee (principal) | CPT/HCPCS: 20610; J7323 ==

== ENCOUNTER 2025-03-31 09:04 | Outpatient (AMB) | payer OTHER, SELFPAY ==
--- NOTE | 2025-03-31 09:25 | MHC.OFFVIS ---
Vital Signs 03/31/25 09:31 Height 5 ft 6 in Weight 229 lb BMI 37.0 Intake Visit Reasons: INJ- RT knee Euflexxa #2 Intake Note: Marilyn is a 50 year old female who presents today for a right knee Euflexxa injection #2. Allergies No Known Allergies Allergy (Verified 03/31/25 09:30) HPI HPI INJ- RT knee Euflexxa #2: Details: 50-year-old female returns to the office today for an injection right knee Euflexxa#2 PFSH Medical History Non-ST elevated myocardial infarction (non-STEMI) CAD (coronary artery disease) Smoker Dvt femoral (deep venous thrombosis) Gout GERD (gastroesophageal reflux disease) Vertigo Asthma Migraine Anxiety and depression Fibromyalgia Neuropathy H/O Sjogren's disease Discoid lupus Lupus Surgical History S/P cardiac catheterization Hx of hysterectomy Hx of thumb surgery Hx of knee surgery Family History Other Arthritis Lupus Social History Household Members: Family Housing: Apartment Do you presently have visiting nurse or other home services: No Alcohol intake: former Patient Tobacco Use Status: Current everyday Tobacco user Tobacco use type: Cigarette Cigarette Packs Per Day: 0.5 Cigarettes Per Day: 10.0 service: No Current occupational status: unemployed Review of Systems Const All systems reviewed & are unremarkable except as noted in HPI and below Physical Exam Vital Signs: BMI result Body Mass Index 37.0 Const General: cooperative and no acute distress Orientation/consciousness: patient oriented x3 Resp Effort & Inspection: normal respiratory effort and able to speak in complete sentences Cardio Peripheral pulses: Peripheral pulses 2+ throughout Neuro General: patient oriented x3 Extrem Other: Right knee is normal to inspection. No joint effusion present. She has no open wounds or abrasion. She has full range of motion. Calf supple and nontender neurovascularly intact. Office Procedures AMB Joint Injection/Aspiration Joint Injection/Aspiration Details: #2 Euflexxa Primary Site: right knee Prep: site was prepped using aseptic technique, ethochloride spray was applied and injection warnings given Injected: in the joint Approach Used: anterolateral Procedure: The patient tolerated the procedure well Coding 34928 - Glenohumeral/Tronchanteric Bursa/Intraarticular Procedure code (CPT) selection complete Assessment & Plan Assessment & Plan (1) Osteoarthritis of right knee: Code(s): M17.11 - Unilateral primary osteoarthritis, right knee Category: Medical Qualifiers: Osteoarthritis type: primary Qualified Code(s): M17.11 - Unilateral primary osteoarthritis, right knee Plan: Plan was to proceed with gel injection today. #2 euflexxa right knee Injection performed today which the patient tolerated well. She will rest ice and use anti-inflammatories as needed for the next several days. I will see her back in 1 week for injection number 3 Coding Level of Care Code Procedure Only Diagnoses Primary osteoarthritis of right knee M17.11 Osteoarthritis type: primary CPT Codes Coding - Joint 7: 92395 - Glenohumeral/Tronchanteric Bursa/Intraarticular ([id number])
[2025-03-31 09:31] VITALS: BMI 37.0
--- OUTSIDE RECORDS SUMMARY | 2025-03-31 09:35 | XMS_ITS | Encounter Summary ---
Author Organization [facility] [facility] Address [address] [place] [address] [address] [place] [address] Care Team Providers Care Electroplater Helper Name Role Phone Unavailable Primary Care Provider Unavailabl e Reason for Visit * Reason Comments Med Refill Encounter Details Date Type Department Care Team (Late st Contact Info) Description 06/23/2024 Refill [facility] [address] [place] [address] Pop Oneil DDS [address] [place], [place] [phone] Social History Tobacco Use Types Packs/Day Years [...] Description 09/22/2025 10:00 AM EST Office Visit [facility] [address] [place] [address] Rebekah Curiel documented as of this encounter Visit Diagnoses Not on filedocumented in this encounter
== END 2025-03-31 09:39 | disposition home or self-care (01) ==
LOC: HO.HOS 09:04
PROVIDERS: PCP Student in an Organized Health Care Education/Training Program; Visit Provider Physician Assistant
DX: M17.11 Unilateral primary osteoarthritis, right knee (principal)
CPT/HCPCS: 20610

== ENCOUNTER → 2025-03-31 09:04 | Outpatient (BNVA) | payer OTHER, SELFPAY | PROVIDERS: PCP Student in an Organized Health Care Education/Training Program; Visit Provider Physician Assistant | DX: M17.11 Unilateral primary osteoarthritis, right knee (principal) | CPT/HCPCS: 20610; J7323 ==

== ENCOUNTER → 2025-04-06 07:52 | Outpatient (REF) | payer OTHER, SELFPAY ==
--- NOTE | ~2025-04-06 | NM_ITS ---
Lexiscan Myocardial perfusion study Indication: Chest pain Technique: The patient was brought in for a Lexiscan perfusion study on 04/06/2025 and was injected 0.4 mg of Lexiscan intravenously. Within a minute of this injection 35 mCi of sestamibi was given intravenously. Images were obtained using the SPECT gamma camera interlaced with the gating device. Images were obtained in supine position. Resting perfusion study was performed on 04/07/2025. Patient was administered 35 mCi of sestamibi intravenously at rest. Images were then obtained in supine position. Total DLP 111 mGy-cm. Images were processed with the software and compared side to side in short axis, horizontal long axis and vertical long axis views. Findings: Raw aquisition reviewed. The stress perfusion study showed no significant perfusion modality. Both uncorrected as well as CT attenuation corrected images were reviewed. The gated study shows normal LV systolic function with calculated LVEF of > 70%. LV cavity is normal in size. The gated study shows normal wall thickening and contraction of segments. Resting study shows diminished tracer uptake in the distal part of inferior wall that improves with CT attenuation correction. Gating at rest reveals normal wall motion with ejection fraction at 68%. The findings are consistent with no clear reversible or fixed perfusion defects. NM/NM cardiolite stress test Impression: 1. Myocardial perfusion imaging study shows normal myocardial perfusion. 2. Gated LVEF is > 70% during stress and 68% during rest. 3. Transient ischemic dilatation not present. EKG component of the test reported separately. Electronically signed by: Ho Anderson MD 04/07/2025 04:16 PM EDT
--- OUTSIDE RECORDS SUMMARY | 2025-04-06 07:55 | XMS_ITS | Encounter Summary ---
Author Organization [employer] [facility] Address [address] [place] [address] 7t [place] [address] Care Team Providers Care Wood Products Manufacturer Name Role Phone Unavailable Primary Care Provider Unavailabl e Reason for Visit * Reason Comments Med Refill Encounter Details Date Type Department Care Team (Late st Contact Info) Description 06/23/2024 Refill [facility] [address] [place] [address] Pop Oneil DDS [address] [place], [place] [phone] Social History Tobacco Use Types Packs/Day Years [...] Description 09/22/2025 10:00 AM EST Office Visit [facility] [address] [place] [address] Rebekah Curiel documented as of this encounter Visit Diagnoses Not on filedocumented in this encounter
--- NOTE | 2025-04-06 08:12 | CA_ITS ---
Acquisition Time: 2025-04-06 08:26:45 Total Exercise Time: 00:03:51 Test Indications: SOB, CAD, HTN Medications: SEE H&P Protocol: CHARLETTE Max HR: 126 BPM 73% of Pred: 172 BPM Max BP: 128/80 mmHG Max Work Load: 5.6 METS Exercise stress test with exercise 3 mins 51 secs of Charlette Protocol, achieving 71% MPHR, requesting to stop due to dizziness with isolated PVCs- one couplet. No chest pain or ST changes. Pt's test switched to Lexiscan. Pharmacological stress test with Lexiscan while pt marched in her chair, with reports of SOB and dizziness, without any arrythmias, with normotensive response to injection. Nondiagnostic EKG for ischemia. In recovery, pt feeling back to baseline, breathing improved and dizziness resolved. Nuclear images pending. Test reviewed with Dr. Anderson. Referred By: Petar Robles Electronically Signed By: Cory Parham
== END ==
LOC: HO.CARD 07:52
PROVIDERS: PCP Student in an Organized Health Care Education/Training Program; Visit Provider Internal Medicine Cardiovascular Disease
DX: R07.9 Chest pain, unspecified (principal); R06.02 Shortness of breath
CPT/HCPCS: 78452; 93017; A9500; J0280; J2785

== ENCOUNTER → 2025-04-06 08:12 | Outpatient (BNV) | payer OTHER, SELFPAY | PROVIDERS: PCP Student in an Organized Health Care Education/Training Program | DX: I49.3 Ventricular premature depolarization (principal) | CPT/HCPCS: 78452; 93016; 93018 ==

== ENCOUNTER 2025-04-07 07:59 | Outpatient (AMB) | payer OTHER, SELFPAY ==
--- OUTSIDE RECORDS SUMMARY | 2025-04-07 08:03 | XMS_ITS | Continuity of Care Document ---
Author Organization [facility] Address [address], [address], [address] [place] [address]- Care Team Providers Care Staple Side Laster Name Role Phone Broderick Kidd MD [id number] Date[facility]s): 03/02/25 - 04/01/25 [facility] [address], [address] [place] [id number]- Encounter Type: Triage Allergies, Adverse Reactions, Alerts [...] 04/25/23 Given tetanus/diphtheria/pertussis, acel(Tdap) 3 01/28/13 Given [id number] bivalent booster vax 01/03/23 Recorded SARS-CoV-2 (COVID-19) [...] 07/05/08 Recor ded 1Result Comment: received at [facility] on [facility] [place] 2Admin Note: flulaval vis given vis date 05/05/2012 3Admin Note: VIS GIVEN VIS DATE 11/27/2011 4Result Comment: received 2nd dose at [facility] 5Result Comment: received at [facility] Medications acetaminophen 500 mg oral tablet 2 tablet, By Mouth, Every 8 hours, PRN NEEDED FOR PAIN, # 100 tablet, 3 Refills, Maintenance, 12/02/24 5:10:00 PM EST[facility], cm, 12/02/24 16:39:00 EST, Height, 108.1, kg,10/16/24 8:53:00 EST, Dry Weight Start Date: 12/02/24 Status: Ordered Quantity: 100.0 Unit: tablet Repeat number: 4 Ajovy Autoinjector 225 mg/1.5 mL subcutaneous solution = 225 mg, Subcutaneous Injection, Every 28 days, # 1 kit, 5 Refills, Maintenance, 01/20/25 6:57:00 AM EDT, [facility], Partial fill upon patient [...] 9:24:00 AM EST, Route to Pharmacy Electronically, [id number], 173, cm, 10/16/24 8:53:00 EST, Height, 108.1, [...] By Mouth, Daily, REFILLS PER PCP OR SPA COORDINATOR, # 90 tablet, 2 Refills, Maintenance, 01/06/25 11:31:00 AM EST, [facility], 173, cm, 12/02/24 16:39:00 EST, Height, 108.1, kg, 10/16/24 8:53:00 EST, Dry Weight Start Date: 01/06/25 Status: Ordered Quantity: 90.0 Unit: tablet Repeat number: 1 atorvastatin 80 mg oral tablet = 80 mg, By Mouth, Daily at bedtime, # 90 capsule, 3 Refills, Maintenance, 11/02/24 1:22:00 PM EST,Tablet, [facility]/pharmacy #[id number], Partial fill upon [...] 5 Refills, Maintenance, 11/02/24 1:23:00 PM EST, [facility]/pharmacy #[id number], 173, cm, 11/02/24 13:12:00 EST, [...] 2 Refills, Maintenance, 03/02/25 2:28:00 PM EDT, [facility], 25, APPLY TOPICALLY FOUR TIMES A [...] 11 Refills, Maintenance, 01/28/25 6:09:00 PM EDT, [facility], Partial fill upon patient request if [...] 2:26:00 PM EST, Route to Pharmacy Electronically, [facility]., 173, cm, 12/02/24 16:39:00 EST, Height, 108.1, kg, 10/16/24 8:53:00 EST, Dry Weight Start Date: 01/01/25 Status: Ordered Quantity: 180.0 Unit: tablet Repeat number: 2 lidocaine 5% topical film 1 patch, Topically, Daily, PRN NEEDED FOR PAIN MILD, REMOVE AFTER 12 HOURS, # 30 patch, 0 Refills, Maintenance, 02/05/23 11:52:00 PM EDT, [id number], 30, APPLY 1 PATCH TOPICALLY DAILY,X30 DAYS [...] 2:48:00 PM EST, Route to Pharmacy Electronically, [id number], 165.1, cm, 12/05/22 15:21:00 EST, Height Start Date: 12/31/22 Stop Date: 01/30/23 Status: Ordered Quantity: 60.0 Unit: tablet Repeat number: 1 losartan 50 mg oral tablet 1 tablet, By Mouth, Daily, # 90 tablet, 1 Refills, Maintenance, 09/16/24 10:17:00 AM EST, [facility]/pharmacy #[id number], 173, cm, 08/19/24 12:16:00 EDT, Height, 101.4, kg, 04/27/24 14:38:00 EDT, Dry Weight Start Date: 09/16/24 Status: Ordered Quantity: 90.0 Unit: tablet Repeat number: 2 meclizine 25 mg oral tablet 1 tablet, By Mouth, 2 times a day, PRN NEEDED FOR DIZZINESS, # 60 tablet, 3 Refills, Maintenance, 01/28/25 5:58:00 PM EDT[facility] 173, cm, 01/28/25 17:21:00 EDT, Height, 108.1,kg, [...] Maintenance, 01/28/25 5:58:00 PM EDT, REC Powder, [facility]., Partial fill upon patient request if the [...] 11 Refills, Maintenance, 11/13/24 12:20:00 PM EST, [facility]., 173, cm, 11/02/24 13:28:00 EST, Height, 108.1, kg, 10/16/24 8:53:00 EST, Dry Weight Start Date: 11/13/24 Status: Ordered Quantity: 30.0 Unit: tablet Repeat number: 12 naratriptan 2.5 mg oral tablet See Instructions, TAKE 1 TABLET BY MOUTH EVERY DAY NEEDED FOR MIGRAINE, MAY REPEAT DOSE AFTER 4 HOURS NEEDED, # 18 tablet, 3 Refills, Maintenance, 03/02/25 10:35:00 AM EDT, [facility],173, cm, 02/08/25 14:59:00 EDT, Height, 108.1, kg, [...] 0 Refills, Maintenance, 09/23/23 10:53:00 AM EST, [id number], 165, cm, 09/12/23 13:12:00 EST, Height, 100, kg, 04/04/23 16:15:00 EDT, Dry Weight Start Date: 09/23/23 Status: Ordered Quantity: 30.0 Unit: tablet Repeat number: 1 pantoprazole 20 mg oral delayed release tablet = 20 mg, By Mouth, Daily, Take for next 12 months while taking aspirin and Brillinta. Refill per PCP or Airways Operations Specialist., # 90 tablet, 3 Refills, Maintenance, 11/02/24 [...] 2 times a day, # 60 capsule, 3 Refills, Maintenance, 03/19/25 4:50:00 PM EDT, [facility], dose reduced to 150mg bid 08/17/24., 173, cm, 03/03/25 8:55:00 EDT, Height, 108.1, kg, 10/16/24 8:53:00 EST, Dry Weight Start Date: 03/19/25 Status: Ordered Quantity: 60.0 Unit: capsule Repeat number: 4 Pull up diapers Pull up diapers, See Instructions, # 60 each, Refills 11, Tot. Refills 11, Maintenance, Dx: Mixed urinary incontinence M39.46 duration: lifetime, 05/15/24 8:18:00 AM EDT, Supply Start Date: 05/15/24 Status: Ordered Quantity: 60.0 Unit: each Repeat number: 12 riboflavin 400 mg oral tablet 1 tablet, By Mouth, Daily, # 90 tablet, 3 Refills, Maintenance, 03/05/25 4:18:00 PM EDT, [facility], 173, cm, 03/03/25 8:55:00 EDT, Height, 108.1, [...] 11:21:00 AM EST, Route to Pharmacy Electronically, [id number], [facility]/pharmacy #[id number], 173, cm, 12/02/24 16:39:00 EST, Height, 108.1, kg, 10/16/24 8:53:00 EST, Dry Weight Start Date: 12/24/24 Status: Ordered Quantity: 30.6 Unit: each Repeat number: 6 Ventolin HFA 108 mcg/inh inhalation aerosol with adapter 2 puffs, Inhalation, Every 6 hours, PRN NEEDED FOR WHEEZE OR FOR SHORTNESS OF BREATH, # 18 each,5 Refills, Maintenance, 11/27/24 4:28:00 PM EST, [facility], 173, cm, 11/02/24 13:28:00 EST, Height, 108.1, kg, 10/16/24 8:53:00 EST, Dry Weight Start Date: 11/27/24 Status: Ordered Quantity: 18.0 Unit: each Repeat number: 6 Vitamin B-12 1000 mcg oral tablet See Instructions, TAKE 1 TABLET BY MOUTH EVERY DAY, # 90 tablet, Refills 0, Maintenance, 12/04/24 1:50:00 PM EST, Instructions Replace Required Details, Route to Pharmacy Electronically, [facility], 173, cm, 12/02/24 16:39:00 EST, Height, [...] 0 Refills, Maintenance, 08/26/24 11:05:00 AM EDT, [facility] #[id number], Partial fill upon patient request if the [...] 5 Refills, Maintenance, 01/28/25 6:00:00 PM EDT, [facility], dose increase to 10mg 01/28/25., 173, [...] Active 1Follows with therapist and psychiatrist at [place] per previous notes 2PFTs show no obstruction. However has h/o asthma. Ct chest in 07/27 and pulm note says restrictive lung disease mild similiar to findings on PFT 3Follows with therapist and psychiatrist at [place] per previous notes 4Sleep study in 2015. [...] Care Nurse Name: Broderick Kidd MD Position: [facility] Resident Member Role: PCP Address: [address] [place] [address] Telecom: Care Team Related Persons Name: MARIO GERARD Name: CARI GARCÍA Name: NOELLE MAY Insurance Providers Guarantor name: TAYLOR SALAZAR Health Plan Information #: 1 Payer: [employer] Member Number: NA Policy Number: NA Group Number: [id number]
--- NOTE | 2025-04-07 08:23 | A.OFFVIS_ITS ---
Vital Signs 04/07/25 08:26 Height 5 ft 6 in Weight 229 lb BMI 37.0 Intake Visit Reasons: INJ- RT knee Euflexxa #3 Intake Note: Marilyn is a 50 year old female who presents today for a right knee Euflexxa injection #3. Allergies No Known Allergies Allergy (Verified 04/07/25 08:26) HPI HPI INJ- RT knee Euflexxa #3: Details: 50 year old female who presents today for a right knee Euflexxa injection #3. [facility] Medical History Non-ST elevated myocardial infarction (non-STEMI) CAD (coronary artery disease) Smoker Dvt femoral (deep venous thrombosis) Gout GERD (gastroesophageal reflux disease) Vertigo Asthma Migraine Anxiety and depression Fibromyalgia Neuropathy H/O Sjogren's disease Discoid lupus Lupus Surgical History (Reviewed 04/07/25 @ 08:27 by Aminah Gonsalez [facility]) S/P cardiac catheterization Hx of hysterectomy Hx of thumb surgery Hx of knee surgery Family History Other Arthritis Lupus Social History Household Members: Family Housing: Apartment Do you presently have visiting nurse or other home services: No Alcohol intake: former Patient Tobacco Use Status: Current everyday Tobacco user Tobacco use type: Cigarette Cigarette Packs Per Day: 0.5 Cigarettes Per Day: 10.0 service: No Current occupational status: unemployed Review of Systems Const All systems reviewed & are unremarkable except as noted in HPI and below Physical Exam Vital Signs: BMI result Body Mass Index 37.0 Const General: cooperative and no acute distress Orientation/consciousness: patient oriented x3 Resp Effort & Inspection: normal respiratory effort and able to speak in complete sentences Cardio Peripheral pulses: Peripheral pulses 2+ throughout Neuro General: patient oriented x3 Extrem Other: Right knee is normal to inspection. No joint effusion present. She has no open wounds or abrasion. She has full range of motion. Calf supple and nontender neurovascularly intact. Office Procedures AMB Joint Injection/Aspiration Joint Injection/Aspiration Details: #3 euflexxa Primary Site: right knee Prep: site was prepped using aseptic technique, ethochloride spray was applied and injection warnings given Injected: in the joint Approach Used: anterolateral Procedure: The patient tolerated the procedure well and there was some relief with the local anesthesia Coding 67004 - Glenohumeral/Tronchanteric Bursa/Intraarticular Procedure code (CPT) selection complete Assessment & Plan Assessment & Plan (1) Osteoarthritis of right knee: Code(s): M17.11 - Unilateral primary osteoarthritis, right knee Category: Medical Qualifiers: Osteoarthritis type: primary Qualified Code(s): M17.11 - Unilateral primary osteoarthritis, right knee Plan: Plan was to proceed with gel injection today. #3 euflexxa right knee Injection performed today which the patient tolerated well. She will rest ice and use anti-inflammatories as needed for the next several days. If symptoms persist or worsen she will contact me to discuss otherwise follow up as needed. Coding Level of Care Code Procedure Only Diagnoses Primary osteoarthritis of right knee M17.11 Osteoarthritis type: primary CPT Codes Coding - Joint 7: 86385 - Glenohumeral/Tronchanteric Bursa/Intraarticular ([id number])
[2025-04-07 08:26] VITALS: BMI 37.0
== END 2025-04-07 09:10 | disposition home or self-care (01) ==
LOC: HO.HOS 08:00
PROVIDERS: PCP Student in an Organized Health Care Education/Training Program; Visit Provider Physician Assistant
DX: M17.11 Unilateral primary osteoarthritis, right knee (principal)
CPT/HCPCS: 20610

== ENCOUNTER → 2025-04-07 07:59 | Outpatient (BNVA) | payer OTHER, SELFPAY | PROVIDERS: PCP Student in an Organized Health Care Education/Training Program; Visit Provider Physician Assistant | DX: M17.11 Unilateral primary osteoarthritis, right knee (principal) | CPT/HCPCS: 20610; J7323 ==

== ENCOUNTER 2025-04-08 13:47 | Outpatient (AMB) | payer OTHER, SELFPAY ==
[2025-04-08 13:49] VITALS: BP 104/60; PULSE 100; O2SAT 98; BMI 35.2
--- NOTE | 2025-04-08 13:49 | MHC.OFFVIS ---
Vital Signs 04/08/25 13:49 Height 5 ft 6 in Weight 218 lb BMI 35.2 BP 104/60 Blood Pressure Location Rt brachial Position Sitting Pulse 100 Pulse Source Pulse Oximeter Pulse Oximetry (%) 98 Oxygen Delivery Method Room Air Intake Visit Reasons: Asthma Allergies No Known Allergies Allergy (Verified 04/08/25 13:54) HPI HPI Asthma: Details: 50-year-old lady, former 5 pack-year smoker, with underlying history of lupus on hydroxychloroquine, environmental allergies under chief unit forester care, followed for asthma and AIRAM. Patient's symptoms have been suboptimally controlled on Symbicort and now are particularly worse with seasonal allergies. [facility] Medical History Non-ST elevated myocardial infarction (non-STEMI) CAD (coronary artery disease) Smoker Dvt femoral (deep venous thrombosis) Gout GERD (gastroesophageal reflux disease) Vertigo Asthma Migraine Anxiety and depression Fibromyalgia Neuropathy H/O Sjogren's disease Discoid lupus Lupus Surgical History S/P cardiac catheterization Hx of hysterectomy Hx of thumb surgery Hx of knee surgery Family History Other Arthritis Lupus Social History Household Members: Family Housing: Apartment Do you presently have visiting nurse or other home services: No Alcohol intake: former Patient Tobacco Use Status: Current everyday Tobacco user Tobacco use type: Cigarette Cigarette Packs Per Day: 0.5 Cigarettes Per Day: 10.0 service: No Current occupational status: unemployed Review of Systems Const Denies daytime sleepiness, Denies excessive sweating, Denies fatigue, Denies fever(s), Denies lethargy, Denies malaise, Denies night sweats, Denies snoring and Denies weight loss Eyes Denies blurry vision and Denies itchy eyes ENT Denies nasal congestion, Denies post nasal drip, Denies sinus pain, Denies sinus pressure and Denies other ( Thrush) Card Denies chest pain, Denies pedal edema, Denies dyspnea, Denies orthopnea and Denies paroxysmal nocturnal dyspnea Resp Denies cough, Denies hemoptysis, Denies excessive phlegm production, Denies dyspnea, Denies snoring and Reports wheezing GI Denies abdominal pain and Denies heartburn Musc Denies myalgias, Denies arthralgias and Denies joint swelling Skin/Breast Denies rash Neuro Denies memory loss and Denies seizure-like activity Psych Denies abnormal sleep pattern, Denies anxiety and Denies memory loss Endo Denies excessive sweating, Denies fatigue and Denies heat intolerance Tuan/Lymph Denies easy bruising Aller/Immun Denies itchy eyes, Reports seasonal rhinorrhea and Reports wheezing Physical Exam Vital Signs: Last Vital Signs Pulse 100 04/08/25 13:49 BP 104/60 04/08/25 13:49 Pulse Ox 98 04/08/25 13:49 Oxygen Delivery Method Room Air 04/08/25 13:49 BMI result Body Mass Index 35.2 Const General: no acute distress and alert Nutritional Appearance: obese Orientation/consciousness: Other orientation findings ( oriented) HEENT Head: Yes atraumatic Eyes General: appearance normal, both eyes and all related structures Sclerae: sclerae normal EOM: EOMs intact bilaterally Neck Neck: Yes supple Lymphatic: no lymphadenopathy noted Resp Effort & Inspection: normal respiratory effort and no use of accessory muscles Auscultation: clear to auscultation bilaterally Cardio Rate: regular rate Rhythm: regular rhythm Heart sounds: no gallops, no murmurs and no rubs Skin General skin exam: other ( warm) Extrem General: No clubbing, No cyanosis and No edema Assessment & Plan Assessment & Plan (1) Asthma: Code(s): J45.909 - Unspecified asthma, uncomplicated Category: Medical Plan: Suboptimally controlled on Symbicort and albuterol MDI. Will request Dupixent approval. (2) AIRAM (obstructive sleep apnea): Code(s): G47.33 - Obstructive sleep apnea (adult) (pediatric) Category: Medical Plan: Continue CPAP therapy. (3) Environmental allergies: Code(s): Z91.09 - Other allergy status, other than to drugs and biological substances Category: Medical Plan: Expect to improve on Dupixent. Continue Singulair, loratadine, and Lety. Coding Level of Care Code Est Pt Level 4 (99145) Complex EM visit Add On G2211 Diagnoses Asthma J45.909 AIRAM (obstructive sleep apnea) G47.33 Environmental allergies Z91.09
--- OUTSIDE RECORDS SUMMARY | 2025-04-08 16:19 | XMS_ITS | Encounter Summary ---
Author Organization [employer] [facility] Address [address] [place] [address] [address] [place] [address] Care Team Providers Care Estate Manager Name Role Phone Unavailable Primary Care Provider Unavailabl e Reason for Visit * Reason Comments Med Refill Encounter Details Date Type Department Care Team (Late st Contact Info) Description 06/23/2024 Refill [facility] [address] [place] [address] Pop Oneil DDS [address] [place], [place] [id number] Social History Tobacco Use Types Packs/Day Years [...] Description 09/22/2025 10:00 AM EST Office Visit [facility] [address] [place] [address] Rebekah Curiel documented as of this encounter Visit Diagnoses Not on filedocumented in this encounter
== END 2025-04-08 14:02 | disposition home or self-care (01) ==
LOC: HO.HPS 13:47
PROVIDERS: PCP Student in an Organized Health Care Education/Training Program; Visit Provider Internal Medicine Pulmonary Disease
DX: J45.909 Unspecified asthma, uncomplicated (principal); G47.33 Obstructive sleep apnea (adult) (pediatric); Z91.09 Other allergy status, other than to drugs and biological substances
CPT/HCPCS: 99214; G2211

== ENCOUNTER → 2025-04-08 13:47 | Outpatient (BNVA) | payer OTHER, SELFPAY | PROVIDERS: PCP Student in an Organized Health Care Education/Training Program; Visit Provider Internal Medicine Pulmonary Disease | DX: J45.909 Unspecified asthma, uncomplicated (principal); G47.33 Obstructive sleep apnea (adult) (pediatric); F17.210 Nicotine dependence, cigarettes, uncomplicated; Z91.09 Other allergy status, other than to drugs and biological substances | CPT/HCPCS: 99212 ==

== ENCOUNTER 2025-04-14 12:41 | Outpatient (AMB) | payer OTHER, SELFPAY ==
[2025-04-14 12:50] VITALS: BP 120/72; PULSE 86; BMI 34.9
--- NOTE | 2025-04-14 12:50 | A.OFFVIS_ITS ---
Vital Signs 04/14/25 12:50 Height 5 ft 6 in Weight 216 lb 0.848 oz BMI 34.9 BP 120/72 Blood Pressure Location Lt brachial Position Sitting Pulse 86 Intake Visit Reasons: 2 mth f/up echo/ mibi NS Intake Note: 2 month follow-up after echo and mibi feeling good Food Services Manager Required: No Detail Maker And Fitter: Detail Maker And Fitter Present Accompanied by: Friend Allergies No Known Allergies Allergy (Verified 04/08/25 13:54) Medication List - Last Reconciled 04/14/25 by Cory Parham NP acetaminophen 1,000 mg PO Q8H PRN albuterol sulfate 2.5 mg inhalation Q6H PRN albuterol sulfate 90 mcg/actuation (Ventolin HFA) 2 puffs inhalation Q6H PRN amitriptyline 10 mg PO BEDTIME arm brace (DAMON Elbow Brace) as directed aspirin 81 mg PO DAILY atorvastatin 80 mg PO DAILY betamethasone dipropionate 0.05% 1 appl topical BID PRN budesonide-formoterol 80-4.5 mcg/actuation (Symbicort) 1 puff inhalation BID PRN cetirizine 10 mg PO DAILY@1500 ciclopirox 1% 1 ea topical Q7D PRN clobetasol 0.05% 1 appl topical BID clonazepam 1 mg PO TID PRN clonidine HCl 0.1 mg PO 3XD PRN CPAP As directed cyanocobalamin (vitamin B-12) (Vitamin B-12) 1,000 mcg PO DAILY cyclobenzaprine 5 - 10 mg (1 - 2 x 5 mg) PO BEDTIME diclofenac sodium 1% 4 grams topical QID duloxetine 30 mg PO DAILY famotidine 20 mg PO BID fexofenadine 180 mg PO DAILY fluocinonide 0.05% 1 appl topical BID PRN fremanezumab-vfrm (Ajovy) 225 mg subcut QMONTH hydrochlorothiazide 25 mg PO DAILY hydrocortisone 2.5% 1 appl topical DAILY PRN hydroxychloroquine 200 mg PO BID loratadine 10 mg PO DAILY losartan 100 mg PO DAILY meclizine 25 mg PO TID PRN mirabegron ER (Myrbetriq) 50 mg PO DAILY montelukast 10 mg PO QPM naratriptan 2.5 mg PO DAILY PRN neomycin-polymyxin B-dexameth 3.5mg/mL-10,000 unit/mL-0.1 % 1 drp ophthalmic (eye) QID nicotine 1 patch topical DAILY nitroglycerin 0.4 mg sublingual Q5M omeprazole 20 mg PO DAILY ondansetron HCl 8 mg PO TID PRN pantoprazole 20 mg PO DAILY pilocarpine HCl 5 mg PO BID PRN pregabalin 200 mg PO BID riboflavin (vitamin B2) 400 mg PO DAILY risperidone 2 mg PO BEDTIME rizatriptan 10 mg PO DAILY PRN sodium fluoride-pot nitrate 1.1-5 % 1 appl PO BID ticagrelor (Brilinta) 90 mg PO BID tirzepatide (weight loss) (Zepbound) mg subcut HPI Comments Details: This is a 50-year-old female patient coming in for a follow-up visit. Patient with history of hypertension, hyperlipidemia, coronary artery disease with prior PCI to LAD, AIRAM, and current smoker. Patient had reported some chest tightness and shortness of breath recently for which patient underwent a myocardial perfusion study and an echocardiogram. Today, patient reports that she has not had anymore chest tightness however has been having some shortness of breath intermittently with exertion specially with walking couple flights of stairs. Patient is otherwise denying any exertional chest pain, palpitations, dizziness, orthopnea, PND, leg edema, presyncope, or syncope. Patient states she is compliant with all her medications. Unfortunately, patient continues to smoke cigarettes. [facility] Medical History Non-ST elevated myocardial infarction (non-STEMI) CAD (coronary artery disease) Smoker Dvt femoral (deep venous thrombosis) Gout GERD (gastroesophageal reflux disease) Vertigo Asthma Migraine Anxiety and depression Fibromyalgia Neuropathy H/O Sjogren's disease Discoid lupus Lupus Surgical History S/P cardiac catheterization Hx of hysterectomy Hx of thumb surgery Hx of knee surgery Family History Other Arthritis Lupus Social History Household Members: Family Housing: Apartment Do you presently have visiting nurse or other home services: No Alcohol intake: former Patient Tobacco Use Status: Current everyday Tobacco user Tobacco use type: Cigarette Cigarette Packs Per Day: 0.5 Cigarettes Per Day: 10.0 service: No Current occupational status: unemployed Review of Systems Const Denies chills, Denies fatigue, Denies fever(s), Denies frequent falls, Denies weakness, Denies weight gain and Denies weight loss ENT Denies dizziness Card Denies chest pain, Denies leg edema, Denies lightheadedness, Denies palpitations, Denies dyspnea, Denies dyspnea on exertion, Denies orthopnea and Denies other (loss of consciousness) Resp Denies cough, Denies dyspnea and Denies dyspnea on exertion GI Denies hematochezia and Denies change in stool character Musc Denies abnormal gait, Denies muscle weakness, Denies numbness, Denies radiating pain into limb and Denies tingling Neuro Denies abnormal gait, Denies dizziness, Denies frequent falls, Denies numbness, Denies tingling and Denies weakness Endo Denies fatigue and Denies palpitations Physical Exam Vital Signs: Last Vital Signs Pulse 86 04/14/25 12:50 BP 120/72 04/14/25 12:50 BMI result Body Mass Index 34.9 Const General: cooperative, healthy appearing, comfortable and no acute distress Orientation/consciousness: patient oriented x3 HEENT Head: Yes normal to inspection Neck Neck: Yes normal visual inspection, Yes trachea midline and Yes supple Chest Chest palpation & inspection: normal inspection of the chest Resp Effort & Inspection: normal respiratory effort Auscultation: clear to auscultation bilaterally, no crackles, no rales, no rhonchi and no wheezes Cardio Jugular venous distension: no JVD Palpation: normal PMI Rate: regular rate Rhythm: regular rhythm Heart sounds: S1 normal heart sound present, S2 normal heart sound present, no click, no gallops, no murmurs and no rubs Peripheral pulses: Peripheral pulses 2+ throughout GI Inspection: Yes normal to inspection Palpation (GI): Soft to palpation Auscultation: normal bowel sounds Skin General skin exam: no rashes or lesions noted Neuro General: patient oriented x3 Extrem General: Yes normal to inspection, No no pedal edema and No calf tenderness Psych Appearance: grossly normal Mental Status: mental status grossly normal Speech and movement: Normal speech and movement present Assessment & Plan Assessment & Plan (1) CAD (coronary artery disease): Code(s): I25.10 - Atherosclerotic heart disease of [place] coronary artery without angina pectoris Category: Medical Plan: 04/28/2024-patient underwent a cardiac catheterization with Dr. Murphy at [facility] at which point it showed 70% stenosis to mid LAD and mild disease in the RCA with successful PCI to LAD. Continue lifelong aspirin therapy. Continue Brilinta until the end of this month- making it 12 months since procedure. Continue high-dose statin therapy, hydrochlorothiazide, and losartan. Most recent LDL from August 27 at 57, with an goal of LDL less than 70. Patient has upcoming labs with PCP. (2) Short of breath on exertion: Code(s): R06.02 - Shortness of breath Category: Medical Plan: 03/17/2025-echo study showed a normal LV systolic function with an ejection fraction between 60-65%, with no wall motion abnormalities or valvular pathology. 04/06/2025-patient underwent a myocardial perfusion study that showed normal perfusion. Patient's shortness of breath is intermittent and only with certain activities such as couple flight of stairs. Patient states that she is walking a lot and does not get any symptoms with this. Patient also reports that she has been having a lot of allergies recently making it worse. Her symptoms are less likely cardiac etiology given the above findings. Discussed in detail about smoking cessation, allergy management, dietary changes, regular exercise, and weight lost management. (3) HTN (hypertension): Code(s): I10 - Essential (primary) hypertension Category: Medical Plan: Blood pressure today is well-controlled. States blood pressures at home are also stable. Continue current regimen. Advised blood pressure monitoring at home with a goal less than 130/80. (4) AIRAM (obstructive sleep apnea): Code(s): G47.33 - Obstructive sleep apnea (adult) (pediatric) Category: Medical Plan: Continue CPAP therapy. (5) Smoker: Code(s): F17.200 - Nicotine dependence, unspecified, uncomplicated Category: Social Hx Plan: Patient continues to smoke, notes that she has gone down from a pack a day to 1 pack every 3 days. Discussed smoking cessation 2 which patient states she will try. Emphasized on heart healthy diet, regular exercise, losing weight, smoking cessation, med compliance, and aggressive management of vascular risk factors. Follow up in 6 months, sooner if needed. In the interim, patient will call the office with any concerns or change in symptoms. Advised to seek ER care in case of exertional chest pain not resolved with rest. This note was generated using voice recognition software. While every effort has been made to ensure accuracy and proper hazmat cdl a driver, there may be occasional errors that could affect the content or meaning of the described symptoms. Coding Level of Care Code Est Pt Level 4 (01029) Complex EM visit Add On G2211 Diagnoses CAD (coronary artery disease) I25.10 Short of breath on exertion R06.02 HTN (hypertension) I10 AIRAM (obstructive sleep apnea) G47.33 Smoker F17.200 Time Spent (min) 32 Comment Time spent in reviewing the chart, test results, assessment, counseling and documentation.
--- OUTSIDE RECORDS SUMMARY | 2025-04-14 14:10 | XMS_ITS | Encounter Summary ---
Author Organization [facility] Address [address] [place] [address] [address] [place] [address] Care Team Providers Care Military Police Officer Name Role Phone Unavailable Primary Care Provider Unavailabl e Reason for Visit * Reason Comments Med Refill Encounter Details Date Type Department Care Team (Late st Contact Info) Description 06/23/2024 Refill [facility] [address] [place] [address] Pop Oneil DDS [address] [place], [place] [phone] Social History Tobacco Use Types Packs/Day Years [...] Description 09/22/2025 10:00 AM EST Office Visit [facility] [address] [place] [address] Rebekah Curiel documented as of this encounter Visit Diagnoses Not on filedocumented in this encounter
== END 2025-04-14 13:14 | disposition home or self-care (01) ==
LOC: HO.HCS 12:42
PROVIDERS: PCP Student in an Organized Health Care Education/Training Program
DX: I25.10 Atherosclerotic heart disease of native coronary artery without angina pectoris (principal); R06.02 Shortness of breath; I10 Essential (primary) hypertension; G47.33 Obstructive sleep apnea (adult) (pediatric); F17.200 Nicotine dependence, unspecified, uncomplicated
CPT/HCPCS: 99214; G2211

== ENCOUNTER 2025-04-14 13:18 | Outpatient (REF) | payer OTHER, SELFPAY ==
--- NOTE | ~2025-04-14 | CT_ITS ---
CLINICAL HISTORY: F17.200 - Nicotine dependence, unspecified, uncomplicated CT abdomen and pelvis without contrast Comparison: None Findings: No consolidation at the lung bases. Status post cholecystectomy and hysterectomy. Unremarkable bladder. No hydronephrosis or nephrolithiasis. The kidneys enhance normally and excrete contrast symmetrically. Left renal cyst measuring up to 3.0 cm. 2.0 cm dominant follicle in the left ovary.. The other solid organs are unremarkable. No bowel wall thickening or dilation. A normal appendix is identified. No aneurysm. Mild calcified atherosclerotic disease. No lymphadenopathy. No ascites. No acute osseous abnormality. Impression: No urinary tract stone, obstruction or other acute findings. This document has been electronically signed by: Mei Plasencia MD on 04/15/2025 13:04:03
[2025-04-14] MEDS: iohexoL 350 MG/ML 100 ML INFUS..BTL IV (14:15)
[2025-04-14 15:52] LABS: MANUAL DIFF FLAG NO
[2025-04-14 16:09] LABS: Basophils Absolute Auto 0.1 X10*3/uL (0.0-0.2); Eosinophils Absolute Auto 0.3 X10*3/uL (0.0-0.4); Hemoglobin 11.7 g/dl (12.0-16.0); Imm Gran Abs Auto 0.03 X10*3/uL (0.00-0.03); Imm Gran Pct Auto 0.3 % (0.0-0.4); Lymphocytes Absolute Auto 2.1 X10*3/uL (1.2-4.9); Lymphocytes Percent Auto 23.3 % (20-40); Mean Corpuscular HGB Conc 33.4 g/dl (31.0-35.0); Mean Corpuscular Hemoglobin 28.7 pg (27.0-33.0); Mean Corpuscular Volume 85.8 fL (80.0-98.0); Mean Platelet Volume 11.9 fL (9.4-12.3); Monocytes Absolute Auto 0.4 X10*3/uL (0.1-1.2); Monocytes Percent Auto 4.9 % (2-11); Neutrophils Absolute Auto 6.1 x10*3/uL (2.0-8.3); Neutrophils Percent Auto 67.5 % (45-73); Platelet Count 283 X10*3/uL (160-400); Red Blood Count 4.08 X10*6/uL (4.20-5.50); Red Cell Distribution Width 14.6 % (11.0-16.0)
[2025-04-14 16:17] LABS: Appearance Urine Clear; Color Urine Dark Yellow; Glucose Urine UA Negative (Negative); Leukocyte Esterase Urine Negative (Negative); Nitrite Urine Negative (Negative); PH 6.5 (5.0-9.0); Specific Gravity - Urine >= 1.030 (1.005-1.025); UMIC TRIGGER UA YES; Urine Blood Small (1+) (Negative); Urine Ketones Negative (Negative); Urine Protein Trace mg/dL (Neg-Trace)
[2025-04-14 16:31] LABS: Alanine Aminotransferase 20 U/L (0-31); Albumin Level 4.1 g/dL (3.5-5.0); Alkaline Phosphatase 75 U/L (39-117); Anion Gap 10 (12-20); Aspartate Amino Transferase 16 U/L (5-31); Bilirubin Total 0.2 mg/dL (0.0-1.0); Blood Urea Nitrogen 6 mg/dL (9-16); C Reactive Protein 1.31 mg/dL (< or = 0.50); Carbon Dioxide 24 mmol/L (22-29); Chloride 102 mmol/L (96-108); Estimated Glomerular Filt Rate > 60; Glucose Random 81 mg/dL (60-115); Potassium 3.8 mmol/L (3.3-5.1); Sodium 132 mmol/L (135-145); Total Protein 7.1 g/dL (6.5-8.0)
[2025-04-14 16:34] LABS: Bacteria Urine None Seen (None Seen); Hyaline Casts Urine 0-2 /LPF (0-2); RBC Urine 0-2 /HPF (0-2); Squamous Epithelial Cell Urine 0-2 /HPF (0-2); WBC Urine 0-5 /HPF (0-5)
[2025-04-14 17:04] LABS: Erythrocyte Sedimentation Rate 25 MM/HR (0-20)
[2025-04-15 08:09] LABS: HBS Num1 2.52 mIU/mL (0-7.99); HBc Num1 0.07 S/CO (0.00-0.79); HBsAGNum1 0.38 S/CO (0.00-0.99); Hepatitis A Antibody IgM 0.19 Index (0-0.79); Hepatitis B Core Antibody Nonreactive (Nonreactive); Hepatitis B Surface Antigen Negative (Negative); ~HepC Num1 0.11 S/CO (0.00-0.79); ~Hepatitis A Antibody IgM Nonreactive (Nonreactive); ~Hepatitis B Surface Antibody NONREACTIVE (Nonreactive); ~Hepatitis C Antibody Nonreactive (Nonreactive)
[2025-04-15 19:53] LABS: Complement C3 137 mg/dL (83-193)
== END 2025-04-14 13:19 | disposition home or self-care (01) ==
LOC: HO.CT 13:18
PROVIDERS: Absent Provider Student in an Organized Health Care Education/Training Program; PCP Student in an Organized Health Care Education/Training Program; Visit Provider Nurse Practitioner Family
DX: R31.29 Other microscopic hematuria (principal); M32.9 Systemic lupus erythematosus, unspecified; F17.200 Nicotine dependence, unspecified, uncomplicated; I25.10 Atherosclerotic heart disease of native coronary artery without angina pectoris; R06.02 Shortness of breath; I10 Essential (primary) hypertension; G47.33 Obstructive sleep apnea (adult) (pediatric); Z71.6 Tobacco abuse counseling
CPT/HCPCS: 36415; 74178; 80053; 81001; 82570; 84156; 84166; 84520; 85025; 85652; 86140; 86160; 86481; 86704; 86706; 86709; 86803; 87340; 99212; Q9967

== ENCOUNTER → 2025-04-14 13:20 | Outpatient (BNV) | payer OTHER, SELFPAY | PROVIDERS: Absent Provider Student in an Organized Health Care Education/Training Program; PCP Student in an Organized Health Care Education/Training Program; Visit Provider Radiology Diagnostic Radiology | DX: F17.200 Nicotine dependence, unspecified, uncomplicated (principal) | CPT/HCPCS: 74178 ==

== ENCOUNTER 2025-04-23 13:11 | Outpatient (REF) | payer OTHER, SELFPAY | END 2025-04-23 13:12 | disposition home or self-care (01) | LOC: HO.LAB 13:11 | PROVIDERS: PCP Student in an Organized Health Care Education/Training Program; Visit Provider Urology | DX: R31.29 Other microscopic hematuria (principal); N32.89 Other specified disorders of bladder; F17.210 Nicotine dependence, cigarettes, uncomplicated | CPT/HCPCS: 52000; 81003; 87086; 99212 ==

== ENCOUNTER 2025-04-23 13:11 | Outpatient (AMB) | payer OTHER, SELFPAY ==
--- NOTE | 2025-04-23 13:12 | A.OFFVIS_ITS ---
Intake Visit Reasons: cysto/CT/labs Intake Note: Patient presents for follow up cystostocy for microscopic hematuria Urology Medications: myrbetriq,amitriptyline Blood Thinner: aspirin Smoker:yes; 30yrs Perinatal Social Worker Required: No Accompanied by: Unknown Allergies No Known Allergies Allergy (Verified 06/25/25 14:41) HPI Comments Details: 04/23/25-here for office cystoscopy. History of Present Illness - The patient is a 50-year-old female presenting with urinary incontinence and bladder spasms. - Urinary incontinence occurs with coughing, sneezing, laughing, and sometimes spontaneously while sitting. - The patient is on Mirabegron for bladder spasms but continues to experience symptoms. - Advised on smoking cessation due to nicotine being a risk factor for urinary tract cancers. Results - Urine cytology: Normal, no abnormal cells detected - Cystoscopy findings: bladder wall thickening, no suspicious bladder lesions. Plan - Continue Mirabegron for OAB symptoms - Schedule a UDS for objective evaluation mixed component for UI - Follow up with [facility] in six months monitor microscopic hematuria - Encourage smoking cessation to reduce the risk of urinary tract cancers. - Consider pelvic floor physical therapy 03/02/25--Marilyn is a pleasant 50-year-old female patient of . She has a past medical history of non STEMI, coronary artery disease, smoker, DVT, gout, GERD, vertigo, asthma, migraines, anxiety, depression, fibromyalgia, neuropathy, and lupus. She presents to the office today as a new patient for microscopic hematuria in the setting of nicotine dependence. In discussion with the patient today she reports having followed up with her PCP and microscopic hematuria was noted at which time recommendations were made for urology referral for further assessment evaluation. She does report a longstanding history of bladder spasms and urinary incontinence and follows up with Dr. Melba Joshi through [facility] uro investment manager. She reports being on Myrbetriq and amitriptyline. She also reports previously having had urodynamics study and recommendations were made for InterStim placement however opted to continue with oral medication therapy. She does report a longstanding history of nicotine dependence over the last 30 years. She reports smoking approximately half a pack of cigarettes per day. We discussed correlation of microscopic hematuria in the setting of nicotine dependence. We also discussed further workup to include CT urogram as well as cystoscopy. She otherwise denies gross/visible hematuria, dysuria, f oul-smelling urine, changes to urinary stream, flank pain, fever, and or chills. In office urinalysis results reviewed with the patient today 2+ microscopic hematuria. I discussed reasons for blood in the urine may include but are not limited to kidney stones, cancer in the urinary tract, kidney stone disease or inflammatory conditions of the urinary tract. I have discussed workup to include cystoscopy evaluation. [facility] Medical History Non-ST elevated myocardial infarction (non-STEMI) CAD (coronary artery disease) Smoker Dvt femoral (deep venous thrombosis) Gout GERD (gastroesophageal reflux disease) Vertigo Asthma Migraine Anxiety and depression Fibromyalgia Neuropathy H/O Sjogren's disease Discoid lupus Lupus Surgical History S/P cardiac catheterization Hx of hysterectomy Hx of thumb surgery Hx of knee surgery Family History Other Arthritis Lupus Social History Household Members: Family Housing: Apartment Do you presently have visiting nurse or other home services: No Alcohol intake: former Patient Tobacco Use Status: Current everyday Tobacco user Tobacco use type: Cigarette Cigarette Packs Per Day: 0.5 Cigarettes Per Day: 10.0 service: No Current occupational status: unemployed Office Procedures Cystoscopy Consent Discussed risk and benefit or proposed procedure with the patient. Information consent for procedure given to the patient. Discussed technical aspects, risks, benefits and alternatives in full. Addressed all of the patient's questions and concerns regarding the procedure. The patient demonstrated knowledge and understanding. They wish to proceed with this procedure. Preparation The patient was prepped in the usual manner. A mrb engineer was present and in the room. Genitalia was prepped with betadine solution in a sterile manner. Lidocaine Jelly 2% was placed into the urethra and 16Fr flexible Olympus cystoscope was inserted into the meatus after adequate lubrication. Procedure Time out per protocol performed. Speculum used as indicated for adequate visualization of urethra, the flexible cystoscope is passed transurethrally: The bladder was inspected in its entirety with utilization retroflexion displaying: Tumor(s): no suspicious bladder lesions visualized Trabeculation: Mild to Moderate i Mucosal Erthema: Mild Orifices: normal shape and position Urethra: normal Cystoscopy findings: Bladder wall thickening, no suspicious bladder lesions visualized [id number] DISPOSABLE SCOPE URO-G FLEXIBLE SCOPE Procedure code (CPT) selection complete Office Meds lidocaine HCl 2 % mucosal jelly in applicator Performing Provider: Jennifer Campo MD Performing Location: [facility] Administered by: Andrea Fontanez LPN on 04/23/25 13:33 Dose Route Admin Location Dispensed Lot Number Expiration Date ND Card Punching Machine Operator 10 mL intra-urethral 20 mL nitrofurantoin monohydrate/macrocrystals 100 mg capsule Performing Provider: Jennifer Campo MD Performing Location: [facility] Administered by: Andrea Fontanez LPN on 04/23/25 13:33 Dose Route Admin Location Dispensed Lot Number Expiration Date NDC Card Punching Machine Operator 100 mg PO 1 cap phenazopyridine 200 mg tablet Performing Provider: Jennifer Campo MD Performing Location: [facility] Administered by: Andrea Fontanez LPN on 04/23/25 13:33 Dose Route Admin Location Dispensed Lot Number Expiration Date NDC Card Punching Machine Operator 200 mg PO 1 tab Results AMB Urinalysis, Automated UA Leukoctes 0 [place]/uL Last Edit by Yoly Capps MA on 04/23/25 13:53 UA Nitrite Negative Last Edit by Yoly Capps [place] on 04/23/25 13:53 UA Urobilinogen 0.2 mg/dL Last Edit by Yoly Capps [place] on 04/23/25 13:53 UA Protein 15 mg/dL Last Edit by Yoly Capps [place] on 04/23/25 13:53 UA pH 7.0 Last Edit by Yoly Capps [place] on 04/23/25 13:53 UA Blood 80 Joshua/uL Last Edit by Yoly Capps [place] on 04/23/25 13:53 UA Specific [place] 1.015 Last Edit by Yoly Capps [place] on 04/23/25 13:53 UA Ketone Negative Last Edit by Yoly Capps MA on 04/23/25 13:53 UA Bilirubin 0 mg/dL Last Edit by Yoly JefryESTELA on 04/23/25 13:53 UA Glucose 0 mg/dL Last Edit by Yoly Capps [place] on 04/23/25 13:53 Results Reviewed Results Reviewed: Laboratory Last Values Urine pH (Auto) 7.0 04/23/25 13:32 Specific [place] (Auto) 1.015 04/23/25 13:32 Urine Protein (Auto) 15 mg/dL 04/23/25 13:32 Glucose (UA)(Auto) 0 mg/dL 04/23/25 13:32 Urine Ketones (Auto) Negative 04/23/25 13:32 Urine Blood (Auto) 80 Joshua/uL 04/23/25 13:32 Urine Nitrite (Auto) Negative 04/23/25 13:32 Urine Bilirubin (Auto) 0 mg/dL 04/23/25 13:32 Urine Urobilinogen (Auto) 0.2 mg/dL 04/23/25 13:32 Leukocyte Esterase (Auto) 0 [place]/uL 04/23/25 13:32 Assessment & Plan Assessment & Plan (1) Microscopic hematuria: Code(s): R31.29 - Other microscopic hematuria Category: Medical (2) Nicotine dependence: Code(s): F17.200 - Nicotine dependence, unspecified, uncomplicated Category: Medical (3) Bladder wall thickening: Code(s): N32.89 - Other specified disorders of bladder Category: Medical Plan Plan - Continue Mirabegron for OAB symptoms - Schedule a UDS for objective evaluation mixed component for UI - Follow up with [facility] in six months monitor microscopic hematuria - Encourage smoking cessation to reduce the risk of urinary tract cancers. - Consider pelvic floor physical therapy Orders: Orders AMB Urinalysis Automated 04/23/25 Z13.9 - Encounter for screening, unspecified AMB Cystoscopy 04/23/25 R31.29 - Other microscopic hematuria Urine Culture 04/23/25 R31.29 - Other microscopic hematuria Patient Instructions: The patient had an opportunity to ask questions regarding treatment plan. The patient expressed understanding and agreement with the above treatment plan. The patient is aware they should contact our office by phone for worsening of their current condition or the appearance of new symptoms. Compliance is encouraged with any medications and followup testing that is ordered. It is a privilege to be allowed the opportunity to participate in the urologic care of your patient. If you have any questions or concerns regarding treatment for the above conditions please do not hesitate to contact me. The office telephone contact is [phone]. This note is constructed in part using voice recognition software. While every effort has been made to ensure accuracy tug boat captain errors may have been included. Yours sincerely, Jennifer Campo MD Scribe Plan - Not visible on output: Patient was informed and verbally consented to the use of an ambient scribe for clinic note documentation during this visit. Coding Level of Care Code Est Pt Level 3 (30474) Diagnoses Microscopic hematuria R31.29 Nicotine dependence F17.200 Bladder wall thickening N32.89 CPT Codes Cystoscopy - CPT: 91142-[id number] ([id number])
--- OUTSIDE RECORDS SUMMARY | 2025-04-23 13:14 | XMS_ITS | Encounter Summary ---
Author Organization [facility] Address [address] [place] [address] [address] [place] [address] Care Team Providers Care Air Pollution Engineer Name Role Phone Unavailable Primary Care Provider Unavailabl e Encounter Details Date Type Department Care Team (Late st Contact Info) Description 04/15/2025 Results Follow-Up [facility] [address] [place] [address] Emmie Sales MD [address] [place], [place] [phone] CBC auto differential, Urinalysis Complete, BUN (Blood Urea Nitrogen), Additional followed-up results: 2 Social History Tobacco Use Types Packs/Day Years [...] as of this encounter Miscellaneous Notes * Result Encounter Note - Emmie Bustamante MD - 04/15/2025 9:15 AM EDT Labs done by outside provider documented in this encounter Plan of Treatment Upcoming Encounters Date Type Department Care Team (Late st Contact Info) Description 09/22/2025 10:00 AM EST Office Visit [facility]ULT [facility] [address] [place] [address] Rebekah Curiel documented as of this encounter Visit Diagnoses Not on filedocumented in this encounter
== END 2025-04-23 14:00 | disposition home or self-care (01) ==
LOC: HO.HUSH 13:12
PROVIDERS: PCP Student in an Organized Health Care Education/Training Program; Visit Provider Urology
DX: R31.29 Other microscopic hematuria (principal); F17.200 Nicotine dependence, unspecified, uncomplicated; N32.89 Other specified disorders of bladder
CPT/HCPCS: 52000; 99213

== ENCOUNTER 2025-05-14 15:22 | Outpatient (AMB) | payer OTHER, SELFPAY ==
--- OUTSIDE RECORDS SUMMARY | 2025-05-14 15:24 | XMS_ITS | Encounter Summary ---
Author Organization [facility] Address [address] [place] [address] [address] [place] [address] Care Team Providers Care Compounding And Finishing Supervisor Name Role Phone Unavailable Primary Care Provider Unavailabl e Encounter Details Date Type Department Care Team (Late st Contact Info) Description 04/15/2025 Results Follow-Up [facility] [address] [place] [address] Emmie Sales MD [address] [place], [place] [phone] CBC auto differential, Urinalysis Complete, BUN (Blood [...] Description 09/22/2025 10:00 AM EST Office Visit [facility] ADULT [facility] [address] [place] [address] Rebekah Curiel documented as of this encounter Visit Diagnoses Not on filedocumented in this encounter
--- NOTE | 2025-05-14 15:45 | A.OFFVIS_ITS ---
Vital Signs 05/14/25 15:49 Height 5 ft 6 in Weight 223 lb 1.725 oz BMI 36.0 BP 115/62 Blood Pressure Location Rt brachial Position Sitting Pulse 80 Pulse Source Pulse Oximeter Pulse Oximetry (%) 97 Oxygen Delivery Method Room Air Intake Visit Reasons: SLE Intake Note: Patient presents for SLE follow up. Allergies No Known Allergies Allergy (Verified 05/14/25 15:48) Medication List - Last Reconciled 05/14/25 by Archana Donald MD acetaminophen 1,000 mg PO Q8H PRN albuterol sulfate 2.5 mg inhalation Q6H PRN albuterol sulfate 90 mcg/actuation (Ventolin HFA) 2 puffs inhalation Q6H PRN amitriptyline 10 mg PO BEDTIME arm brace (DAMON Elbow Brace) as directed aspirin 81 mg PO DAILY atorvastatin 80 mg PO DAILY betamethasone dipropionate 0.05% 1 appl topical BID PRN budesonide-formoterol 80-4.5 mcg/actuation (Symbicort) 1 puff inhalation BID PRN cetirizine 10 mg PO DAILY@1500 ciclopirox 1% 1 ea topical Q7D PRN clobetasol 0.05% 1 appl topical BID clonazepam 1 mg PO TID PRN clonidine HCl 0.1 mg PO 3XD PRN CPAP As directed cyanocobalamin (vitamin B-12) (Vitamin B-12) 1,000 mcg PO DAILY cyclobenzaprine 5 - 10 mg (1 - 2 x 5 mg) PO BEDTIME diclofenac sodium 1% 4 grams topical QID diclofenac sodium 1% 4 grams topical QID 30 days duloxetine 30 mg PO DAILY famotidine 20 mg PO BID fexofenadine 180 mg PO DAILY fluocinonide 0.05% 1 appl topical BID PRN fremanezumab-vfrm (Ajovy) 225 mg subcut QMONTH hydrochlorothiazide 25 mg PO DAILY hydrocortisone 2.5% 1 appl topical DAILY PRN hydroxychloroquine 200 mg PO BID loratadine 10 mg PO DAILY losartan 100 mg PO DAILY meclizine 25 mg PO TID PRN mirabegron ER (Myrbetriq) 50 mg PO DAILY montelukast 10 mg PO QPM naratriptan 2.5 mg PO DAILY PRN neomycin-polymyxin B-dexameth 3.5mg/mL-10,000 unit/mL-0.1 % 1 drp ophthalmic (eye) QID nicotine 1 patch topical DAILY nitroglycerin 0.4 mg sublingual Q5M omeprazole 20 mg PO DAILY ondansetron HCl 8 mg PO TID PRN pantoprazole 20 mg PO DAILY pilocarpine HCl 5 mg PO BID PRN pregabalin 200 mg PO BID riboflavin (vitamin B2) 400 mg PO DAILY risperidone 2 mg PO BEDTIME rizatriptan 10 mg PO DAILY PRN sodium fluoride-pot nitrate 1.1-5 % 1 appl PO BID ticagrelor (Brilinta) 90 mg PO BID tirzepatide (weight loss) (Zepbound) mg subcut HPI Comments Details: Patient is a 49-year-old female morbidly obese with hypertension complicated by coronary artery disease, asthma, polyarticular osteoarthritis and lupus here today for follow up Interval History: Patient last seen 01/06/25 with me - feeling more tired/fatigued - Fell and having more pain - Rash and hair loss under control - Pain responds to flexeril Since then, - Received gel injections with ortho - fell again on vacation Today - Doing okay overall - still achy - no rash or hair loss Rheumatologic History: SLE dx around 2006 (arthralgias, rashes, +++SSa +++Cm +++SIGN LANGUAGE TRANSLATOR) HCQ throughout Methotrexate could not be tolerated Benlysta lost effectiveness after 8 months Vaishnavio added 06/2024 effective Initial history: This is a 48-year-old female with a past medical history of SLE who presents as a new patient. Patient used to follow-up with Dr. Pineda. She was unable to get an appointment with dr. Marquez at his new practice. She states that she was diagnosed with SLE around 17 years ago when she developed a butterfly rash and diffuse joint pain. She stated that she was treated with prednisone consistently at 5 mg daily for about 8 years. She was also started on hydroxychloroquine. She has been on hydroxychloroquine since her diagnosis. She states that she took methotrexate for 2 months about 7 years ago and according to patient she lost her smell and taste afterwards. He was told that this was likely a side effect of methotrexate. It did not recover when methotrexate was discontinued. Five years ago she was on Benlysta infusions for about 8 months. She stated that was helping reduce the frequency of her flare-ups, but eventually it became ineffective. Per patient 5 years ago patient presented to the hospital with right lower extremity DVT. According to patient she was on blood thinners for some time. States that she has been wearing compression stockings for about 10 years. Patient was recently evaluated by a county assessor for respiratory bronchiolitis versus extrinsic allergic alveolitis and was started on prednisone 40 mg daily a month ago with improvement of her joint pain. Current Rheumatology Medication(s): Saphnelo 300mg IV every 4 weeks Plaquenil 200mg bid daily PFSH Medical History Non-ST elevated myocardial infarction (non-STEMI) CAD (coronary artery disease) Smoker Dvt femoral (deep venous thrombosis) Gout GERD (gastroesophageal reflux disease) Vertigo Asthma Migraine Anxiety and depression Fibromyalgia Neuropathy H/O Sjogren's disease Discoid lupus Lupus Surgical History S/P cardiac catheterization Hx of hysterectomy Hx of thumb surgery Hx of knee surgery Family History Other Arthritis Lupus Social History Household Members: Family Housing: Apartment Do you presently have visiting nurse or other home services: No Alcohol intake: former Patient Tobacco Use Status: Current everyday Tobacco user Tobacco use type: Cigarette Cigarette Packs Per Day: 0.5 Cigarettes Per Day: 10.0 service: No Current occupational status: unemployed Review of Systems Const Details: Review of Systems Constitutional: Denies fever, chills, weight loss ENT: Denies vision changes, eye pain or eye redness, dental caries, dry mouth GI: Denies nausea, vomiting, diarrhea, abdominal pain, change in BM Pulm: Denies SOB, SINHA, hemoptysis, wheezing Cards: Denies chest pain, palpitations Skin: Denies Raynaud's, rash, nail changes, photosensitivity, SPACE BUYER: Denies headaches, weakness, paresthesias, recurrent falls MSK: as per HPI All other systems reviewed and are unremarkable except noted above Physical Exam Vital Signs: Last Vital Signs Pulse 80 05/14/25 15:49 BP 115/62 05/14/25 15:49 Pulse Ox 97 05/14/25 15:49 Oxygen Delivery Method Room Air 05/14/25 15:49 BMI result Body Mass Index 36.0 Vital signs reviewed Physical Examination CONSTITUITIONAL Patient alert and cooperative. Well appearing and in no apparent painful distress HEENT Conjunctiva and sclera clear. ?Pupils equal round and reactive to light. ?No lymphadenopathy. ? CHEST/RESPIRATORY SYSTEM Normal respiratory effort and able to speak in complete sentences. ?Clear to auscultation bilaterally. ?No crackles, rales, rhonchi, wheezes heard. CARDIAC SYSTEM Regular rate and rhythm. ?S1 and S2 heard no murmurs. 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 No deformities noted. ?No synovitis noted to the MCPs, PIPs or DIPs. ?No tenderness to palpation of these joints. Wrists: ?Full range of motion at the wrists without pain. ?No tenderness to palpation or synovitis noted to the wrists. Elbows: Full range of motion without pain. No tenderness, weakness, swelling, increased warmth or erythema. Shoulders: Slightly decreased ROM bilaterally. No tenderness, weakness, swelling, increased warmth or erythema. Knees: ?Full range of motion. ?Tenderness to palpation of the medial knee joint line of the right knee. Pain with extremes of range of motion to the right knee. Left knee crepitations felt full range of motion. Ankles: Full range of motion. Pitting edema noted to bilateral ankles Feet: ?Negative squeeze test. ?No tenderness to palpation or swelling of the MTPs. Tender points:?Tenderness to palpation of the bilateral trapezius, supraspinatus, greater trochanters No TTP anterior costochondral junctions, bilateral gluteal areas, bilateral suboccipital muscle insertions SKIN Faint malar rash noted over face Normal nail fold capillaries Results Reviewed Results Reviewed: Laboratory Tests 12/29/24 04/14/25 12:17 15:51 WBC 9.0 RBC 4.08 L Hgb 11.7 L Hct 35.0 L Plt Count 283 ESR 25 H Sodium 132 L Potassium 3.8 Chloride 102 Carbon Dioxide 24 BUN 6 L Creatinine 0.74 AST 16 ALT 20 Alkaline Phosphatase 75 C-Reactive Protein 0.90 H 1.31 H Laboratory Tests 12/29/24 04/14/25 12:17 15:51 Double Strand DNA Ab 3 Complement C3 137 Complement C4 34 Assessment & Plan Assessment & Plan (1) Lupus: Comment: dx around 2006 (arthralgias, rashes, +++SSa +++Cm +++SIGN LANGUAGE TRANSLATOR) HCQ throughout Methotrexate could not be tolerated Benlysta lost effectiveness after 8 months Saphnelo added 06/2024 effective Code(s): M32.9 - Systemic lupus erythematosus, unspecified Category: Medical Plan: #SLE Patient is a 49-year-old female with SLE currently in remission. Plan - Saphnelo 300mg IV every 4 weeks - Plaquenil 200mg bid daily - RTC 4 months - Labs before visit: CBC, CMP, ESR, CRP, C3, C4, dsDNA, UA, UPC (2) Internal derangement of right knee: Code(s): M23.91 - Unspecified internal derangement of right knee Category: Medical Plan: #Right knee pain Patient with right knee pain after another fall. Has a history of small meniscal tear in the right knee. s/p gel Euflexxa series with ortho Follow up with Orthopedics Plan - Follow up with ortho - Flexeril refilled for muscle spasms (3) Long-term use of hydroxychloroquine: Comment: Eye exam okay 03/2024 Code(s): Z79.899 - Other intermediate (current) drug therapy Category: Medical Plan: #Long-term Use of Hydroxychloroquine Discussed with patient the risks and benefits of hydroxychloroquine in managing the rheumatic condition Benefits include: - Reduced pain, reduce mortality, maintenance of remission and reduction of flares Risks include: - GI upset, skin hyperpigmentation, retinal toxicity (especially after more than 5 years of use), myopathy Advised yearly ophthalmology visits (4) High risk medication use: Code(s): Z79.899 - Other intermediate (current) drug therapy Category: Medical Plan: #Long-term use Anifrolumab Discussed with patient the risks and benefits of hydroxychloroquine in managing the rheumatic condition Benefits include: - Reduced pain, reduce mortality, maintenance of remission and reduction of flares Risks include: - Increased susceptibility to serious infections particularly viral infections like herpes zoster (shingles), respiratory tract infections and infusion related reactions Plan I spent 30 minutes reviewing the record and labs, taking a history, examining the patient, discussing the treatment plan and documenting in the medical record Orders: Orders Complement C3 4 Months M32.9 - Systemic lupus erythematosus, unspecified Anti DNA DS Antibody 4 Months M32.9 - Systemic lupus erythematosus, unspecified Comprehensive Met. Panel 4 Months M32.9 - Systemic lupus erythematosus, unspecified Erythrocyte Sedimentation Rate 4 Months M32.9 - Systemic lupus erythematosus, unspecified UA w Microscopic 4 Months M32.9 - Systemic lupus erythematosus, unspecified Complement C4 4 Months M32.9 - Systemic lupus erythematosus, unspecified Complete Blood Count Auto Diff 4 Months M32.9 - Systemic lupus erythematosus, unspecified C Reactive Protein 4 Months M32.9 - Systemic lupus erythematosus, unspecified Protein Creatinine Ratio, Ur 4 Months M32.9 - Systemic lupus erythematosus, unspecified Medications: Refilled hydroxychloroquine 200 mg PO BID 180 tabs 1RF M32.9 - Systemic lupus erythematosus, unspecified cyclobenzaprine 5 - 10 mg (1 - 2 x 5 mg) PO BEDTIME 30 tabs 4RF for muscle spasm M62.838 - Other muscle spasm Coding Level of Care Code Est Pt Level 4 (49874) Complex EM visit Add On G2211 Diagnoses Lupus M32.9 Internal derangement of right knee M23.91 Long-term use of hydroxychloroquine Z79.899 High risk medication use Z79.899
[2025-05-14 15:49] VITALS: BP 115/62; PULSE 80; O2SAT 97; BMI 36.0
== END 2025-05-14 16:18 | disposition home or self-care (01) ==
LOC: HO.RHE 15:22
PROVIDERS: PCP Student in an Organized Health Care Education/Training Program; Visit Provider Student in an Organized Health Care Education/Training Program
DX: M32.9 Systemic lupus erythematosus, unspecified (principal); M23.91 Unspecified internal derangement of right knee; Z79.899 Other long term (current) drug therapy
CPT/HCPCS: 99214; G2211

== ENCOUNTER → 2025-05-14 15:22 | Outpatient (BNVA) | payer OTHER, SELFPAY | PROVIDERS: PCP Student in an Organized Health Care Education/Training Program; Visit Provider Student in an Organized Health Care Education/Training Program | DX: M25.561 Pain in right knee (principal); M62.838 Other muscle spasm; S83.206A Unspecified tear of unspecified meniscus, current injury, right knee, initial encounter; W19.XXXA Unspecified fall, initial encounter; Z79.899 Other long term (current) drug therapy | CPT/HCPCS: 99212 ==

== ENCOUNTER 2025-06-07 12:32 | Outpatient (AMB) | payer OTHER, SELFPAY ==
--- OUTSIDE RECORDS SUMMARY | 2025-06-03 23:59 | XMS_ITS | Continuity of Care Document ---
Author Organization [facility] Address [address] [place] [address]- Care Team Providers Care Insurance Agency Manager Name Role Phone Bernabe MEHTA, Broderick Primary Care Physician Encounter [facility] Date(s): 05/04/25 - 06/03/25 [facility] [address] [place] [address]- Encounter Type: Triage Allergies, Adverse Reactions, Alerts [...] 04/25/23 Given tetanus/diphtheria/pertussis, acel(Tdap) 3 01/28/13 Given [id number] bivalent booster vax 01/03/23 Recorded SARS-CoV-2 (COVID-19) [...] 07/05/08 Recor ded 1Result Comment: received at [facility] in [place] 2Admin Note: flulaval vis given vis date 05/05/2012 3Admin Note: VIS GIVEN VIS DATE 11/27/2011 4Result Comment: received 2nd dose at [facility] 5Result Comment: received at [facility] Medications acetaminophen 500 mg oral tablet 2 tablet, By Mouth, Every 8 hours, PRN NEEDED FOR PAIN, # 100 tablet, 3 Refills, Maintenance, 12/02/24 5:10:00 PM EST[facility] 173, cm, 12/02/24 16:39:00 EST, Height, 108.1, kg,10/16/24 8:53:00 EST, Dry Weight Start Date: 12/02/24 Status: Ordered Quantity: 100.0 Unit: tablet Repeat number: 4 Ajovy Autoinjector 225 mg/1.5 mL subcutaneous solution = 225 mg, Subcutaneous Injection, Every 28 days, # 1 kit, 5 Refills, Maintenance, 01/20/25 6:57:00 AM EDT, [facility], Partial fill upon patient [...] 9:24:00 AM EST, Route to Pharmacy Electronically, [facility] #[id number], 173, cm, 10/16/24 8:53:00 EST, Height, 108.1, kg, 10/16/24 8:53:00 EST, Dry Weight Start Date: 10/16/24 Status: Ordered Quantity: 90.0 Unit: tablet Repeat number: 1 ammonium lactate 5% topical lotion 1 application, Topically, 2 times a day, PRN Dry Skin, apply and rub in well, # 120 Gm, 0 Refills, Maintenance, 12/05/22 5:09:00 PM EST, Lotion, [facility]/pharmacy #[id number], Partial fill upon patient request ifthe prescription is for a schedule II opioid drug., 1 application Topically 2 times a day,x14 days,PRN:Dry Skin,Instr:apply and rub in well, 165.1, cm, 12/05/22 15:21:00 EST, Height Start Date: 12/05/22 Stop Date: 12/19/22 Status: Ordered Quantity: 120.0 Unit: g Repeat number: 1 Indications: Xerosis cutis; Aspirin Low Dose 81 mg oral delayed release tablet 1 tablet, By Mouth, Daily, REFILLS PER PCP OR MACHINE ERECTOR, # 90 tablet, 2 Refills, Maintenance, 01/06/25 11:31:00 AM EST, [facility], 173, cm, 12/02/24 16:39:00 EST, Height, 108.1, kg, 10/16/24 8:53:00 EST, Dry Weight Start Date: 01/06/25 Status: Ordered Quantity: 90.0 Unit: tablet Repeat number: 1 atorvastatin 80 mg oral tablet = 80 mg, By Mouth, Daily at bedtime, # 90 capsule, 3 Refills, Maintenance, 11/02/24 1:22:00 PM EST,Tablet, [facility]/pharmacy #[id number], Partial fill upon patient request if the prescription is for a scheduleII opioid drug., 173, cm, 11/02/24 13:12:00 EST, Height, 108.1, kg, 10/16/24 8:53:00 EST, Dry Weight Start Date: 11/02/24 Stop Date: 10/28/25 Status: Ordered Quantity: 90.0 Unit: capsule Repeat number: 4 [place] Saline 0.65% nasal solution See Instructions, flush nasal passages once or twice a day, to help allergy symptoms., # 60 mL, 3 Refills, Maintenance, 04/05/25 2:35:00 PM EDT, [facility], Partial fill upon patient request if the prescription is for a schedule II opioid drug., flush nasal passages once or twice a day, to help allergy symptoms., 173, cm, 04/05/25 14:18:00 EDT, Height, 108.1, kg, 10/16/24 8:53:00 EST, Dry Weight Start Date: 04/05/25 Status: Ordered Quantity: 60.0 Unit: mL Repeat number: 4 B-12 1,000 MCG TABLET [...] 5 Refills, Maintenance, 11/02/24 1:23:00 PM EST, [facility]/pharmacy #[id number], 173, cm, 11/02/24 13:12:00 [...] 2 Refills, Maintenance, 03/02/25 2:28:00 PM EDT, [facility], 25, APPLY TOPICALLY FOUR TIMES A DAYAS [...] Refills, Maintenance, 01/28/25 6:09:00 PM EDT, [facility], Partial fill upon patient [...] PM EST, Route to Pharmacy Electronically, [facility], 173, cm, 12/02/24 16:39:00 EST, Height, 108.1, kg, 10/16/24 8:53:00 EST, Dry Weight Start Date: 01/01/25 Status: Ordered Quantity: 180.0 Unit: tablet Repeat number: 2 lidocaine 5% topical film 1 patch, Topically, Daily, PRN NEEDED FOR PAIN MILD, REMOVE AFTER 12 HOURS, # 30 patch, 0 Refills, Maintenance, 02/05/23 11:52:00 PM EDT, [id number], 30, APPLY 1 PATCH TOPICALLY DAILY,X30 DAYS NEEDED FOR PAIN MILD, REMOVE AFTER 12 HOURS, 168, cm, 01/15/23 7:16:00 EDT, Height, 99.4, kg, 01/15/23 7:16:00 EDT, Dry Weight Start Date: 02/05/23 Status: Ordered Quantity: 30.0 Unit: patch Repeat number: 1 loratadine 10 mg oral tablet 1, tablet, By Mouth, 2 times a day, # 60 tablet, Refills 0, Tot. Refills 0, Maintenance, 05/19/25 9:48:00 PM EDT, Route to Pharmacy Electronically, [facility], 173, cm, 04/08/25 15:59:00 EDT, Height, 108.1, kg, 10/16/24 8:53:00 EST, Dry Weight Start Date: 05/19/25 Stop Date: 06/18/25 Status: Ordered Quantity: 60.0 Unit: tablet Repeat number: 1 losartan 50 mg oral tablet 1 tablet, By Mouth, Daily, # 90 tablet, 1 Refills, Maintenance, 09/16/24 10:17:00 AM EST, [facility]/pharmacy #[id number], 173, cm, 08/19/24 12:16:00 EDT, Height, 101.4, kg, 04/27/24 14:38:00 EDT, Dry Weight Start Date: 09/16/24 Status: Ordered Quantity: 90.0 Unit: tablet Repeat number: 2 meclizine 25 mg oral tablet 1 tablet, By Mouth, 2 times a day, PRN NEEDED FOR DIZZINESS, # 60 tablet, 3 Refills, Maintenance, 05/04/25 12:28:00 PM EDT, [facility], 173, cm, 04/08/25 15:59:00 EDT, Height, 108.1, kg, 10/16/24 8:53:00 EST, Dry Weight Start Date: 05/04/25 Status: Ordered Quantity: 60.0 Unit: tablet Repeat number: 1 Metamucil 3.4 gm/5.2 gm oral powder for reconstitution = 1.7 Gm, By Mouth, Daily, PRN as needed for constipation, dissolve in 8 oz of fluid to prevent constipation., # 570 Gm, 11 Refills, Maintenance, 01/28/25 5:58:00 PM EDT, REC Powder, [facility], Partial fill upon patient [...] 11 Refills, Maintenance, 11/13/24 12:20:00 PM EST, [facility]., 173, cm, 11/02/24 13:28:00 EST, Height, 108.1, kg, 10/16/24 8:53:00 EST, Dry Weight Start Date: 11/13/24 Status: Ordered Quantity: 30.0 Unit: tablet Repeat number: 12 nitroglycerin 0.4 mg sublingual tablet 1 tablet [...] 0 Refills, Maintenance, 09/23/23 10:53:00 AM EST, [id number], 165, cm, 09/12/23 13:12:00 EST, Height, 100, kg, 04/04/23 16:15:00 EDT, Dry Weight Start Date: 09/23/23 Status: Ordered Quantity: 30.0 Unit: tablet Repeat number: 1 pantoprazole 20 mg oral delayed release tablet = 20 mg, By Mouth, Daily, Take for next 12 months while taking aspirin and Brillinta. Refill per PCP or Page Technician., # 90 tablet, 3 Refills, Maintenance, 11/02/24 [...] 3 Refills, Maintenance, 03/19/25 4:50:00 PM EDT, [facility], dose reduced to 150mg [...] 3 Refills, Maintenance, 03/05/25 4:18:00 PM EDT, [facility], 173, cm, 03/03/25 8:55:00 EDT, Height, 108.1, [...] 11:21:00 AM EST, Route to Pharmacy Electronically, [id number], [facility]/pharmacy #[id number], 173, cm, 12/02/24 16:39:00 EST, Height, 108.1, kg, 10/16/24 8:53:00 EST, Dry Weight Start Date: 12/24/24 Status: Ordered Quantity: 30.6 Unit: each Repeat number: 6 Ubrelvy 50 mg oral tablet 1 tablet = 50 mg, By Mouth, Daily, may repeat dose in 2 hours, do not exceed 2 doses in 24 hours, #8 tablet, 5 Refills, Acute 04/08/26 4:03:00 PM EDT, 04/08/25 4:03:00 PM EDT, [facility], Partial fill upon patient request if the prescription is for a schedule II opioid drug., 173, cm, 04/08/25 15:59:00 EDT, Height, 108.1, kg, 10/16/24 8:53:00 EST, Dry Weight Start Date: 04/08/25 Stop Date: 04/08/26 Status: Ordered Quantity: 8.0 Unit: tablet Repeat number: 6 Ventolin HFA 108 mcg/inh inhalation aerosol with adapter 2 puffs, Inhalation, Every 6 hours, PRN NEEDED FOR WHEEZE OR FOR SHORTNESS OF BREATH, # 18 each,5 Refills, Maintenance, 11/27/24 4:28:00 PM EST, [facility], 173, cm, 11/02/24 13:28:00 EST, Height, 108.1, kg, 10/16/24 8:53:00 EST, Dry Weight Start Date: 11/27/24 Status: Ordered Quantity: 18.0 Unit: each Repeat number: 6 Vitamin B-12 1000 mcg oral tablet See Instructions, TAKE 1 TABLET BY MOUTH EVERY DAY, # 90 tablet, Refills 0, Maintenance, 12/04/24 1:50:00 PM EST, Instructions Replace Required Details, Route to Pharmacy Electronically, [facility], 173, cm, 12/02/24 16:39:00 EST, Height, 108.1, [...] 0 Refills, Maintenance, 08/26/24 11:05:00 AM EDT, [facility] #[id number], Partial fill upon patient request if the [...] Refills, Maintenance, 01/28/25 6:00:00 PM EDT, [facility], dose increase to 10mg [...] Active 1Follows with therapist and psychiatrist at [place] per previous notes 2PFTs show no obstruction. However has h/o asthma. Ct chest in 07/27 and pulm note says restrictive lung disease mild similiar to findings on PFT 3Follows with therapist and psychiatrist at [place] per previous notes 4Sleep study in 2016. [...] Team Personnel Name: Terrence Pa RN Position: [facility] RN Member Role: Primary Care Nurse Name: Broderick Kidd MD Position: [facility] Resident Member Role: PCP Address: [address] [place] [id number] Telecom: Care Team Related Persons Name: MARIO GERARD Name: CARI GARCÍA Name: NOELLE MAY Insurance Providers Guarantor name: TAYLORMerari SALAZAR Health Plan Information #: 1 Payer: [employer] Payer Identifier: NA Member Number: [id number] Group Number: [id number] Subscriber Identifier: [id number] Relationship to Subscriber: self Coverage Type: Medicaid (Managed Care) Coverage Verification Date: NA Telecom: NA Address:
--- OUTSIDE RECORDS SUMMARY | 2025-06-07 13:00 | XMS_ITS | Encounter Summary ---
Author Organization [facility] Address [address] [place] [address] [address] [place] [address] Care Team Providers Care Longshore Equipment Operator Name Role Phone Unavailable Primary Care Provider Unavailabl e Encounter Details Date Type Department Care Team (Late st Contact Info) Description 04/15/2025 Results Follow-Up [facility] [address] [place] [address] Emmie Sales MD [address], [place] [phone] CBC auto differential, Urinalysis Complete, BUN (Blood [...] Description 09/22/2025 10:00 AM EST Office Visit [facility] [address] [place] [address] Rebekah Curiel documented as of this encounter Visit Diagnoses Not on filedocumented in this encounter
--- OUTSIDE RECORDS SUMMARY | 2025-06-07 13:00 | XMS_ITS | Clinical Summary ---
Author Organization [facility] Address [address] [place] [phone] Phone Care Team Providers Care Flight Engineer Name Role Phone Pcp, Unknown Primary Care Provider Unavailabl e Allergies No known active allergies Medications hydroxychloroquine (PLAQUENIL) 200 mg tablet Take 200 mg by mouth 2 (two) times a day. Active SUMAtriptan (IMITREX) 100 MG tablet Take 100 mg by mouth every 2 (two) hours as needed for migraine. Active albuterol (PROVENTIL HFA;VENTOLIN HFA) 90 mcg/actuation inhaler Inhale 2 puffs into the lungs every 6 (six) hours as needed for wheezing. Active amitriptyline (ELAVIL) 75 MG tablet Take by mouth nightly. Active clonazePAM (KLONOPIN) 1 MG tablet Take 1 mg by mouth 2 (two) times a day as needed for anxiety. Active fluticasone (FLOVENT HFA) 110 mcg/actuation inhaler Inhale 2 puffs into the lungs 2 (two) times a day. Active prednisoLONE (ORAPRED ODT) 15 MG disintegrating tablet Take 15 mg by mouth daily. Active calcium carbonate-vitamin D3 1,250 mg (500 mg elemental)-400 units per tablet Take 1 tablet by mouth daily. Active hydrOXYzine (ATARAX) 25 MG tablet Take 25 mg by mouth every 6 (six) hours as needed for itching. Active ranitidine (ZANTAC) 150 MG tablet Take 1 tablet (150 mg total) by mouth 2 (two) times a day. 60 tablet 11 6 Active cetirizine (ZYRTEC) 10 MG tablet Take 1 tablet (10 mg total) by mouth 2 (two) times a day. 60 tablet 11 6 Active montelukast (SINGULAIR) 10 mg tablet Take 1 tablet (10 mg total) by mouth nightly. 30 tablet 11 6 Active fexofenadine (JENNI) 180 MG tablet Take 1 tablet (180 mg total) by mouth 2 (two) times a day. 60 tablet 11 6 Active Active Problems Problem Noted Date Diagnosed Date Discoid lupus erythematosus 03/05/2016 Chronic urticaria 03/05/2016 Social History Tobacco Use Types Packs/Day Years Used Date Smoking Tobacco: Every Day Alcohol Use Standard Drinks/Week Comments Not Asked 0 (1 standard drink = 0.6 oz pur e alcohol) Education Answer Date Recorded Are you interested in more education? Not on zelda e 03/01/2023 Are you concerned about learning? Not on file 03/01/2023 No 03/01/2023 No 03/01/2023 Digital Access Answer Date Recorded No 04/01/2023 No 04/01/2023 No 04/01/2023 Reliable internet access at home? Not on file 04/01/2023 Device with a working camera? Not on file Comments Unknown Sex and Gender Information Value Date Recorded Sex Assigned at Not on file Legal Sex Female 10:48 AM EDT Gender Identity Not on file Sexual Orientation Not on file Last Filed Vital Signs Vital Sign Reading Time Taken Comments Blood Pressure 123/82 02/29/2016 2:53 PM EDT Pulse 78 02/29/2016 2:53 PM EDT Temperature - - Respiratory Rate - - Oxygen Saturation 99% 02/29/2016 2:53 PM EDT Inhaled Oxygen Concentration - - Weight 85.7 kg (189 lb) 02/29/2016 2:53 PM EDT Height 167.6 cm (5' 6 ) 02/29/2016 2:53 PM EDT Body Mass Index 30.51 02/29/2016 2:53 PM EDT Plan of Treatment Health Maintenance Due Date Last Done Comments Adult Td,Tdap Booster 1977 LIPID PANEL 1977 SMOKING Hx and SMOKELESS TOBACCO SCREENING 1990 HEPATITIS C SCREENING 1995 HIV ONE-TIME SCREENING (18-6 5 YEARS) 1995 PNEUMOCOCCAL VACCINES (0-49 years) (1 of 2 - PCV) 02/06/1996 PAP SMEAR 1998 MAMMOGRAM 2017 DEPRESSION SCREENING 02/28/2017 02/29/2016 COLOGUARD 2022 COLONOSCOPY 2022 COLORECTAL CANCER SCREENING 2022 FIT TEST 2022 FOBT 2022 SIGMOIDOSCOPY 2022 VIRTUAL COLONOSCOPY 2022 COVID-19 VACCINE (2023-2 5 season) 2024 01/24/2021, 12/27/2020 HEPATITIS A VACCINES Aged Out No long er eligible based on patient's age to complete this topic HIB VACCINES Aged Out No longer eligi ble based on patient's age to complete this topic MENINGOCOCCAL VACCINES (ACWY) Aged Out No longer eligible based on patient's age to complete this topic MENINGOCOCCAL VACCINES (B) Aged Out N o longer eligible based on patient's age to complete this topic Medical Devices Not on file [place] [address] [employer] ACO [facility] PARTNERSHIP ACO [facility] Care Teams Flight Engineer Relationship Specialty Start Date End Date Pcp, Unknown PCP - General 06/28/23 Additional Source Comments The information contained in this document represents components of the legal health record. It is not the complete legal health record.[facility]
[2025-06-07 13:17] VITALS: BP 102/62; PULSE 78; O2SAT 98; BMI 35.7
--- NOTE | 2025-06-07 13:17 | A.OFFVIS_ITS ---
Vital Signs 06/07/25 13:17 Height 5 ft 6 in Weight 221 lb BMI 35.7 BP 102/62 Blood Pressure Location Rt brachial Position Sitting Pulse 78 Pulse Source Pulse Oximeter Pulse Oximetry (%) 98 Oxygen Delivery Method Room Air Intake Visit Reasons: Asthma Allergies No Known Allergies Allergy (Verified 06/07/25 13:21) HPI HPI Asthma: Details: 50-year-old lady, former 5 pack-year smoker, with underlying history of lupus on hydroxychloroquine, environmental allergies under liquor commissioner care, followed for asthma and AIRAM. Patient's symptoms continue to be suboptimally controlled on Symbicort, though with modest improvement as environmental allergen background has improved. [facility] Medical History Non-ST elevated myocardial infarction (non-STEMI) CAD (coronary artery disease) Smoker Dvt femoral (deep venous thrombosis) Gout GERD (gastroesophageal reflux disease) Vertigo Asthma Migraine Anxiety and depression Fibromyalgia Neuropathy H/O Sjogren's disease Discoid lupus Lupus Surgical History S/P cardiac catheterization Hx of hysterectomy Hx of thumb surgery Hx of knee surgery Family History Other Arthritis Lupus Social History Household Members: Family Housing: Apartment Do you presently have visiting nurse or other home services: No Alcohol intake: former Patient Tobacco Use Status: Current everyday Tobacco user Tobacco use type: Cigarette Cigarette Packs Per Day: 0.5 Cigarettes Per Day: 10.0 service: No Current occupational status: unemployed Review of Systems Const Denies daytime sleepiness, Denies excessive sweating, Denies fatigue, Denies fever(s), Denies lethargy, Denies malaise, Denies night sweats, Denies snoring and Denies weight loss Eyes Denies blurry vision and Denies itchy eyes ENT Denies nasal congestion, Denies post nasal drip, Denies sinus pain, Denies sinus pressure and Denies other ( Thrush) Card Denies chest pain, Denies pedal edema, Denies dyspnea, Denies orthopnea and Denies paroxysmal nocturnal dyspnea Resp Denies cough, Denies hemoptysis, Denies excessive phlegm production, Denies dyspnea, Denies snoring and Denies wheezing GI Denies abdominal pain and Denies heartburn Musc Denies myalgias, Denies arthralgias and Denies joint swelling Skin/Breast Denies rash Neuro Denies memory loss and Denies seizure-like activity Psych Denies abnormal sleep pattern, Denies anxiety and Denies memory loss Endo Denies excessive sweating, Denies fatigue and Denies heat intolerance Tuan/Lymph Denies easy bruising Aller/Immun Denies itchy eyes, Denies seasonal rhinorrhea and Denies wheezing Physical Exam Vital Signs: Last Vital Signs Pulse 78 06/07/25 13:17 BP 102/62 06/07/25 13:17 Pulse Ox 98 06/07/25 13:17 Oxygen Delivery Method Room Air 06/07/25 13:17 BMI result Body Mass Index 35.7 Const General: no acute distress and alert Nutritional Appearance: obese Orientation/consciousness: Other orientation findings ( oriented) HEENT Head: Yes atraumatic Eyes General: appearance normal, both eyes and all related structures Sclerae: sclerae normal EOM: EOMs intact bilaterally Neck Neck: Yes supple Lymphatic: no lymphadenopathy noted Resp Effort & Inspection: normal respiratory effort and no use of accessory muscles Auscultation: clear to auscultation bilaterally Cardio Rate: regular rate Rhythm: regular rhythm Heart sounds: no gallops, no murmurs and no rubs Skin General skin exam: other ( warm) Extrem General: No clubbing, No cyanosis and No edema Assessment & Plan Assessment & Plan (1) Asthma: Code(s): J45.909 - Unspecified asthma, uncomplicated Category: Medical Plan: Suboptimally controlled on Symbicort and albuterol MDI. Expect to improve on Dupixent. Continue current regimen. (2) AIRAM (obstructive sleep apnea): Code(s): G47.33 - Obstructive sleep apnea (adult) (pediatric) Category: Medical Plan: Reasonable controlled on CPAP therapy. Continue CPAP therapy. (3) Environmental allergies: Code(s): Z91.09 - Other allergy status, other than to drugs and biological substances Category: Medical Plan: Suboptimally controlled on Lety and Singulair. Expect to improve with Dupixent. Continue current regimen. Coding Level of Care Code Est Pt Level 4 (92432) Complex EM visit Add On G2211 Diagnoses Asthma J45.909 AIRAM (obstructive sleep apnea) G47.33 Environmental allergies Z91.09
== END 2025-06-07 13:29 | disposition home or self-care (01) ==
LOC: HO.HPS 12:32
PROVIDERS: PCP Student in an Organized Health Care Education/Training Program; Visit Provider Internal Medicine Pulmonary Disease
DX: J45.909 Unspecified asthma, uncomplicated (principal); G47.33 Obstructive sleep apnea (adult) (pediatric); Z91.09 Other allergy status, other than to drugs and biological substances
CPT/HCPCS: 99214; G2211

== ENCOUNTER → 2025-06-07 12:32 | Outpatient (BNVA) | payer OTHER, SELFPAY | PROVIDERS: PCP Student in an Organized Health Care Education/Training Program; Visit Provider Internal Medicine Pulmonary Disease | DX: G47.33 Obstructive sleep apnea (adult) (pediatric) (principal); J45.909 Unspecified asthma, uncomplicated; Z91.09 Other allergy status, other than to drugs and biological substances; Z99.89 Dependence on other enabling machines and devices | CPT/HCPCS: 99212 ==

== ENCOUNTER 2025-06-25 12:48 | Outpatient (AMB) | payer OTHER, SELFPAY ==
--- OUTSIDE RECORDS SUMMARY | 2025-06-25 12:51 | XMS_ITS | Encounter Summary ---
Author Organization [facility] Address [address] [place] [address] [address] [place] [address] Care Team Providers Care Blanket Winder Operator Name Role Phone Unavailable Primary Care Provider Unavailabl e Reason for Visit * Reason Comments Med Refill Encounter Details Date Type Department Care Team (Late st Contact Info) Description 06/23/2024 Refill [facility] [address] [place] [address] Pop Oneil DDS [address], [place] [id number] Social History Tobacco Use Types Packs/Day Years [...] Description 09/22/2025 10:00 AM EST Office Visit [facility] [address] [place] [address] Rebekah Curiel documented as of this encounter Visit Diagnoses Not on filedocumented in this encounter
--- OUTSIDE RECORDS SUMMARY | 2025-06-25 12:51 | XMS_ITS | Clinical Summary ---
Author Organization [facility] Address [address] [place] [phone] Phone Care Team Providers Care Registered Respiratory Technician Name Role Phone Pcp, Unknown Primary Care [...] topic Medical Devices Not on file Insurance [place] [address] HEALTHY PARTNERSHIP ACO [facility] PARTNERSHIP ACO [facility]CO [facility]CO [facility] Care Teams Registered Respiratory Technician Relationship Specialty Start Date End Date Pcp, Unknown PCP - General 06/28/23 Additional Source Comments The information contained in this document represents components of the legal health record. It is not the complete legal health record.[facility]
[2025-06-25 14:40] VITALS: BP 104/60; PULSE 92; O2SAT 98
--- NOTE | 2025-06-25 14:40 | MHC.OFFVIS ---
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 Required: No Allergies No Known Allergies Allergy (Verified 06/25/25 14:41) Medication List - Last Reconciled 06/25/25 by Leda Barriga LPN acetaminophen 1,000 mg PO Q8H PRN albuterol sulfate 2.5 mg inhalation Q6H PRN albuterol sulfate 90 mcg/actuation (Ventolin HFA) 2 puffs inhalation Q6H PRN amitriptyline 10 mg PO BEDTIME arm brace (DAMON Elbow Brace) as directed aspirin 81 mg PO DAILY atorvastatin 80 mg PO DAILY betamethasone dipropionate 0.05% 1 appl topical BID PRN budesonide-formoterol 80-4.5 mcg/actuation (Symbicort) 1 puff inhalation BID PRN cetirizine 10 mg PO DAILY@1500 ciclopirox 1% 1 ea topical Q7D PRN clobetasol 0.05% 1 appl topical BID clonazepam 1 mg PO TID PRN clonidine HCl 0.1 mg PO 3XD PRN CPAP As directed cyanocobalamin (vitamin B-12) (Vitamin B-12) 1,000 mcg PO DAILY cyclobenzaprine 5 - 10 mg (1 - 2 x 5 mg) PO BEDTIME diclofenac sodium 1% 4 grams topical QID 30 days diclofenac sodium 1% 4 grams topical QID duloxetine 30 mg PO DAILY dupilumab (Dupixent) 300 mg (2 mL) subcut Q2W famotidine 20 mg PO BID fexofenadine 180 mg PO DAILY fluocinonide 0.05% 1 appl topical BID PRN fremanezumab-vfrm (Ajovy) 225 mg subcut QMONTH hydrochlorothiazide 25 mg PO DAILY hydrocortisone 2.5% 1 appl topical DAILY PRN hydroxychloroquine 200 mg PO BID loratadine 10 mg PO DAILY losartan 100 mg PO DAILY meclizine 25 mg PO TID PRN mirabegron ER (Myrbetriq) 50 mg PO DAILY montelukast 10 mg PO QPM naratriptan 2.5 mg PO DAILY PRN neomycin-polymyxin B-dexameth 3.5mg/mL-10,000 unit/mL-0.1 % 1 drp ophthalmic (eye) QID nicotine 1 patch topical DAILY nitroglycerin 0.4 mg sublingual Q5M omeprazole 20 mg PO DAILY ondansetron HCl 8 mg PO TID PRN pantoprazole 20 mg PO DAILY pilocarpine HCl 5 mg PO BID PRN pregabalin 200 mg PO BID riboflavin (vitamin B2) 400 mg PO DAILY risperidone 2 mg PO BEDTIME rizatriptan 10 mg PO DAILY PRN sodium fluoride-pot nitrate 1.1-5 % 1 appl PO BID ticagrelor (Brilinta) 90 mg PO BID tirzepatide (weight loss) (Zepbound) mg subcut HPI Comments Details: Marilyn? is here for a Dupixent teach she was educated on hand washing, injection preparation, administration, and disposal.? Marilyn was able to return demonstrate proper technique for hand washing, injection preparation, administration and disposal of needle and states she has no questions at this time. Medication Dupixent 300mg/2mL pen injector (patient?s own meds) Loading dose of 600mg given by the patient in 2 SQ injections; injection #1 R abdomen ;? injection #2 L abdomen Lot# [id number] expires 08/03/2027. Patient aware her next injection is in 15 days. Nurse visit only.? [facility] Medical History Non-ST elevated myocardial infarction (non-STEMI) CAD (coronary artery disease) Smoker Dvt femoral (deep venous thrombosis) Gout GERD (gastroesophageal reflux disease) Vertigo Asthma Migraine Anxiety and depression Fibromyalgia Neuropathy H/O Sjogren's disease Discoid lupus Lupus Surgical History S/P cardiac catheterization Hx of hysterectomy Hx of thumb surgery Hx of knee surgery Family History Other Arthritis Lupus Social History Household Members: Family Housing: Apartment Do you presently have visiting nurse or other home services: No Alcohol intake: former Patient Tobacco Use Status: Current everyday Tobacco user Tobacco use type: Cigarette Cigarette Packs Per Day: 0.5 Cigarettes Per Day: 10.0 service: No Current occupational status: unemployed Physical Exam Vital Signs: Last Vital Signs Pulse 92 06/25/25 14:40 BP 104/60 06/25/25 14:40 Pulse Ox 98 06/25/25 14:40 Oxygen Delivery Method Room Air 06/25/25 14:40 Assessment & Plan Assessment & Plan (1) Asthma: Code(s): J45.909 - Unspecified asthma, uncomplicated Category: Medical Plan: Dupixent teaching Coding Level of Care Code Established Pt Est Pt Level 1 (15217) Patient Type Established Diagnoses Asthma J45.909 Comment NURSE VISIT ONLY
== END 2025-06-25 16:36 | disposition home or self-care (01) ==
LOC: HO.HPS 12:49
PROVIDERS: PCP Student in an Organized Health Care Education/Training Program; Visit Provider Internal Medicine Pulmonary Disease
DX: J45.909 Unspecified asthma, uncomplicated (principal)

== ENCOUNTER → 2025-06-25 12:48 | Outpatient (BNVA) | payer OTHER, SELFPAY | PROVIDERS: PCP Student in an Organized Health Care Education/Training Program; Visit Provider Internal Medicine Pulmonary Disease | DX: J45.909 Unspecified asthma, uncomplicated (principal) | CPT/HCPCS: 99211 ==

== ENCOUNTER 2025-08-13 12:33 | Outpatient (REF) | payer OTHER, SELFPAY | END 2025-08-13 12:34 | disposition home or self-care (01) | LOC: HO.LAB 12:33 | PROVIDERS: PCP Student in an Organized Health Care Education/Training Program; Visit Provider Urology | DX: R31.29 Other microscopic hematuria (principal); N32.89 Other specified disorders of bladder | CPT/HCPCS: 87086; 87088; 87186 ==

== ENCOUNTER → 2025-08-13 13:54 | Outpatient (BNV) | payer OTHER, SELFPAY | PROVIDERS: PCP Student in an Organized Health Care Education/Training Program; Visit Provider Urology | DX: Z13.9 Encounter for screening, unspecified (principal) | CPT/HCPCS: 81003 ==

== ENCOUNTER 2025-09-08 14:09 | Outpatient (REF) | payer OTHER, SELFPAY ==
[2025-09-08 18:31] LABS: Alanine Aminotransferase 19 U/L (0-31); Albumin Level 4.0 g/dL (3.5-5.0); Alkaline Phosphatase 72 U/L (39-117); Anion Gap 9 (12-20); Aspartate Amino Transferase 18 U/L (5-31); Blood Urea Nitrogen 11 mg/dL (9-16); Calcium 8.7 mg/dL (8.4-10.2); Carbon Dioxide 27 mmol/L (22-29); Chloride 107 mmol/L (96-108); Estimated Glomerular Filt Rate > 60; Potassium 4.0 mmol/L (3.3-5.1); Sodium 139 mmol/L (135-145); Total Protein 7.4 g/dL (6.5-8.0)
[2025-09-08 18:41] LABS: Mean Corpuscular Hemoglobin 28.1 pg (27.0-33.0); NRBC Abs Auto 0.000 X10*3/uL (0.0-0.012); NRBC Pct Auto 0.0 /100WBC (0.0-0.2); SCAN SMEAR FLAG 1
[2025-09-08 18:43] LABS: Hematocrit 36.7 % (37.0-47.0); Hemoglobin 11.9 g/dl (12.0-16.0); Imm Gran Abs Auto 0.03 X10*3/uL (0.00-0.03); Imm Gran Pct Auto 0.3 % (0.0-0.4); Lymphocytes Absolute Auto 2.8 X10*3/uL (1.2-4.9); MANUAL DIFF FLAG SCAN; Mean Corpuscular HGB Conc 32.4 g/dl (31.0-35.0); Mean Corpuscular Volume 86.8 fL (80.0-98.0); Platelet Count 222 X10*3/uL (160-400); Red Blood Count 4.23 X10*6/uL (4.20-5.50); White Blood Count 11.0 X10*3/uL (4.8-10.8)
[2025-09-08 18:51] LABS: Total Protein Urine Random < 7 mg/dL (<12)
[2025-09-08 18:52] LABS: Appearance Urine Clear; Glucose Urine UA Negative (Negative); PH 5.5 (5.0-9.0); Specific Gravity - Urine 1.015 (1.005-1.025); UMIC TRIGGER UA YES
[2025-09-08 18:56] LABS: PLT ABN DIST 1
== END 2025-09-08 14:10 | disposition home or self-care (01) ==
LOC: HO.HKASLDS 14:09
PROVIDERS: PCP Student in an Organized Health Care Education/Training Program; Visit Provider Student in an Organized Health Care Education/Training Program
DX: M32.9 Systemic lupus erythematosus, unspecified (principal); M17.11 Unilateral primary osteoarthritis, right knee; M25.511 Pain in right shoulder; M25.512 Pain in left shoulder; M54.50 Low back pain, unspecified; Z79.899 Other long term (current) drug therapy; Z79.620 Long term (current) use of immunosuppressive biologic
CPT/HCPCS: 36415; 80053; 81001; 82570; 84156; 85025; 85652; 86140; 86160; 86225; 99212

== ENCOUNTER 2025-09-08 14:09 | Outpatient (AMB) | payer OTHER, SELFPAY ==
--- NOTE | 2025-09-08 14:24 | A.OFFVIS_ITS ---
Vital Signs 09/08/25 14:31 Height 5 ft 6 in Weight 214 lb 15.211 oz BMI 34.7 BP 140/82 H Blood Pressure Location Lt brachial Position Sitting Pulse 70 Pulse Source Pulse Oximeter Pulse Oximetry (%) 100 Oxygen Delivery Method Room Air Intake Visit Reasons: SLE Intake Note: Patient presents for SLE follow up. Patient stated she started a rash on her face on 09/03/25. Allergies No Known Allergies Allergy (Verified 09/08/25 14:31) Medication List - Last Reconciled 09/08/25 by Archana Donald MD acetaminophen 1,000 mg PO Q8H PRN albuterol sulfate 2.5 mg inhalation Q6H PRN albuterol sulfate 90 mcg/actuation (Ventolin HFA) 2 puffs inhalation Q6H PRN amitriptyline 10 mg PO BEDTIME arm brace (DAMON Elbow Brace) as directed aspirin 81 mg PO DAILY atorvastatin 80 mg PO DAILY betamethasone dipropionate 0.05% 1 appl topical BID PRN budesonide-formoterol 80-4.5 mcg/actuation (Symbicort) 1 puff inhalation BID PRN cephalexin 500 mg PO TID 5 days cetirizine 10 mg PO DAILY@1500 ciclopirox 1% 1 ea topical Q7D PRN clobetasol 0.05% 1 appl topical BID clonazepam 1 mg PO TID PRN clonidine HCl 0.1 mg PO 3XD PRN CPAP As directed cyanocobalamin (vitamin B-12) (Vitamin B-12) 1,000 mcg PO DAILY cyclobenzaprine 5 - 10 mg (1 - 2 x 5 mg) PO BEDTIME diclofenac sodium 1% 4 grams topical QID 30 days diclofenac sodium 1% 4 grams topical QID duloxetine 30 mg PO DAILY dupilumab (Dupixent) 300 mg (2 mL) subcut Q2W famotidine 20 mg PO BID fexofenadine 180 mg PO DAILY fluocinonide 0.05% 1 appl topical BID PRN fremanezumab-vfrm (Ajovy) 225 mg subcut QMONTH hydrochlorothiazide 25 mg PO DAILY hydrocortisone 2.5% 1 appl topical DAILY PRN hydroxychloroquine 200 mg PO BID loratadine 10 mg PO DAILY losartan 100 mg PO DAILY meclizine 25 mg PO TID PRN mirabegron ER (Myrbetriq) 50 mg PO DAILY montelukast 10 mg PO QPM naratriptan 2.5 mg PO DAILY PRN neomycin-polymyxin B-dexameth 3.5mg/mL-10,000 unit/mL-0.1 % 1 drp ophthalmic (eye) QID nicotine 1 patch topical DAILY nitrofurantoin monohyd/m-cryst 100 mg (Macrobid) 100 mg PO BID 5 days nitroglycerin 0.4 mg sublingual Q5M omeprazole 20 mg PO DAILY ondansetron HCl 8 mg PO TID PRN pantoprazole 20 mg PO DAILY pilocarpine HCl 5 mg PO BID PRN pregabalin 200 mg PO BID riboflavin (vitamin B2) 400 mg PO DAILY risperidone 2 mg PO BEDTIME rizatriptan 10 mg PO DAILY PRN sodium fluoride-pot nitrate 1.1-5 % 1 appl PO BID ticagrelor (Brilinta) 90 mg PO BID tirzepatide (weight loss) (Zepbound) mg subcut HPI Comments Details: Patient is a 50-year-old female morbidly obese with hypertension complicated by coronary artery disease, asthma, polyarticular osteoarthritis and lupus here today for follow up Interval History: Patient last seen 05/14/25 with me - On saphnelo 300mg every 4 weeks and Hydroxychloroquine 200mg bid - Received gel injections with ortho - fell again on vacation - Doing okay overall - still achy - no rash or hair loss Today - On saphnelo 300mg every 4 weeks and Hydroxychloroquine 200mg bid - Complains of persistent butterfly rash - Stiffness in her back and shoulders - Got Euflexxa 04/2025 with ortho to her right knee and notes that her pain improved but it is starting to recur - No further falls Rheumatologic History: SLE dx around 2006 (arthralgias, rashes, +++SSa +++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 Patient used to follow-up with Dr. Pineda. She was unable to get an appointment with dr. Marquez at his new practice. She states that she was diagnosed with SLE around 17 years ago when she developed a butterfly rash and diffuse joint pain. She stated that she was treated with prednisone consistently at 5 mg daily for about 8 years. She was also started on hydroxychloroquine. She has been on hydroxychloroquine since her diagnosis. She states that she took methotrexate for 2 months about 7 years ago and according to patient she lost her smell and taste afterwards. He was told that this was likely a side effect of methotrexate. It did not recover when methotrexate was discontinued. Five years ago she was on Benlysta infusions for about 8 months. She stated that was helping reduce the frequency of her flare-ups, but eventually it became ineffective. Per patient 5 years ago patient presented to the hospital with right lower extremity DVT. According to patient she was on blood thinners for some time. States that she has been wearing compression stockings for about 10 years. Patient was recently evaluated by a rn ostomy for respiratory bronchiolitis versus extrinsic allergic alveolitis and was started on prednisone 40 mg daily a month ago with improvement of her joint pain. Current Rheumatology Medication(s): Saphnelo 300mg IV every 4 weeks Plaquenil 200mg bid daily PFSH Medical History Non-ST elevated myocardial infarction (non-STEMI) CAD (coronary artery disease) Smoker Dvt femoral (deep venous thrombosis) Gout GERD (gastroesophageal reflux disease) Vertigo Asthma Migraine Anxiety and depression Fibromyalgia Neuropathy H/O Sjogren's disease Discoid lupus Lupus Surgical History S/P cardiac catheterization Hx of hysterectomy Hx of thumb surgery Hx of knee surgery Family History Other Arthritis Lupus Social History Household Members: Family Housing: Apartment Do you presently have visiting nurse or other home services: No Alcohol intake: former Patient Tobacco Use Status: Current everyday Tobacco user Tobacco use type: Cigarette Cigarette Packs Per Day: 0.5 Cigarettes Per Day: 10.0 service: No Current occupational status: unemployed Review of Systems Narrative Review of Systems Constitutional: Denies fever, chills, weight loss ENT: Denies vision changes, eye pain or eye redness, dental caries, dry mouth GI: Denies nausea, vomiting, diarrhea, abdominal pain, change in BM Pulm: Denies SOB, SINHA, hemoptysis, wheezing Cards: Denies chest pain, palpitations Skin: Denies nail changes 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 Well appearing and in no apparent painful distress MSK Hands * Right Hand: Able to make a fist. No swelling or tenderness to palpation of the MCPs, PIPs or DIPs. * Left Hand: Able to make a fist. No swelling or tenderness to palpation of the MCPs, PIPs or DIPs. Wrists * Right Wrist: Full ROM to flexion and extension. No swelling or TTP * Left Wrist: Full ROM to flexion and extension. No swelling or TTP Elbows * Right Elbow: Full ROM. No swelling or TTP. No TTP of the medial epicondyle. No TTP of the lateral epicondyle * Left Elbow: Full ROM. No swelling or TTP. No TTP of the medial epicondyle. No TTP of the lateral epicondyle Shoulders * Right shoulder: No swelling noted. No TTP of the AC joint. TTP of the subacromial bursa. No TTP of the posterior shoulder * Left shoulder: No swelling noted. No TTP of the AC joint. TTP of the subacromial bursa. No TTP of the posterior shoulder * Bilateral decreased ROM Hips * Right hip: Good ROM. No pain elicited with hip flexion/internal rotation/external rotation * Left hip: Good ROM. No pain elicited with hip flexion/internal rotation/external rotation Hip bursa: Tenderness to palpation bilaterally Knees * Right knee: Full ROM. No swelling noted. TTP of the knee joint line. No TTP of pes anserine bursa * Left knee: Full ROM. No swelling noted. No TTP of the knee joint line. No TTP of pes anserine bursa. * Crepitations felt bilaterally Ankles * Right ankle: Good ankle dorsiflexion and plantar flexion. No swelling. No TTP of the ankle joint * Left ankle: Good ankle dorsiflexion and plantar flexion. No swelling. No TTP of the ankle joint Feet * Right foot: Negative squeeze test * Left foot: Negative squeeze test Tender points? * No tenderness to palpation of the bilateral trapezius, supraspinatus, anterior costochondral junctions, bilateral suboccipital muscle insertions SKIN Facial erythema without scaring Vital Signs: Last Vital Signs Pulse 70 09/08/25 14:31 BP 140/82 H 09/08/25 14:31 Pulse Ox 100 09/08/25 14:31 Oxygen Delivery Method Room Air 09/08/25 14:31 BMI result Body Mass Index 34.7 Results Reviewed Results Reviewed: Laboratory Tests 12/29/24 04/14/25 12:17 15:51 WBC 9.0 RBC 4.08 L Hgb 11.7 L Hct 35.0 L Plt Count 283 ESR 25 H Sodium 132 L Potassium 3.8 Chloride 102 Carbon Dioxide 24 BUN 6 L Creatinine 0.74 AST 16 ALT 20 C-Reactive Protein 0.90 H 1.31 H Laboratory Tests 04/14/25 15:51 Complement C3 137 Complement C4 34 Assessment & Plan Assessment & Plan (1) Lupus: Comment: dx around 2006 (arthralgias, rashes, +++SSa +++Cm +++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 Complaints of shoulder and and back pain are likely 2/2 degenerative joint disease Will check XRs Plan - Saphnelo 300mg IV every 4 weeks - Plaquenil 200mg bid daily - XR Bilateral shoulders and L spine - Labs today: CBC, CMP, ESR, CRP, C3, C4, dsDNA, UA, UPC - RTC 4 months - Labs before visit: CBC, CMP, ESR, CRP, C3, C4, dsDNA, UA, UPC (2) Internal derangement of right knee: Code(s): M23.91 - Unspecified internal derangement of right knee Category: Medical Plan: #Right knee OA Did well with the Euflexxa series Needs to f/u with ortho for repeat series Plan - Follow up with ortho (3) Long-term use of hydroxychloroquine: Comment: Eye exam okay 03/2024 Code(s): Z79.899 - Other usp (current) drug therapy Category: Medical Plan: #Long-term Use of Hydroxychloroquine Discussed with patient the risks and benefits of hydroxychloroquine in managing the rheumatic condition Benefits include: - Reduced pain, reduce mortality, maintenance of remission and reduction of flares Risks include: - GI upset, skin hyperpigmentation, retinal toxicity (especially after more than 5 years of use), myopathy Advised yearly ophthalmology visits (4) High risk medication use: Code(s): Z79.899 - Other usp (current) drug therapy Category: Medical Plan: #Long-term use Anifrolumab Discussed with patient the risks and benefits of hydroxychloroquine in managing the rheumatic condition Benefits include: - Reduced pain, reduce mortality, maintenance of remission and reduction of flares Risks include: - Increased susceptibility to serious infections particularly viral infections like herpes zoster (shingles), respiratory tract infections and infusion related reactions Plan I spent 30 minutes reviewing the record and labs, taking a history, examining the patient, discussing the treatment plan and documenting in the medical record Orders: Orders XR shoulder LT min 2V Today M25.511 - Pain in right shoulder, M25.512 - Pain in left shoulder, M54.50 - Low back pain, unspecified Complete Blood Count Auto Diff 4 Months M32. - Systemic lupus erythematosus, unspecified Protein Creatinine Ratio, Ur 4 Months M32. - Systemic lupus erythematosus, unspecified Complement C3 4 Months M3. - Systemic lupus erythematosus, unspecified Anti DNA DS Antibody 4 Months M32. - Systemic lupus erythematosus, unspecified UA ClnCatch+Micro w/rflx Cult 4 Months M32. - Systemic lupus erythematosus, unspecified XR shoulder RT min 2V Today M25.511 - Pain in right shoulder, M25.512 - Pain in left shoulder, M54.50 - Low back pain, unspecified XR lumbar spine 4V min Today M25.511 - Pain in right shoulder, M25.512 - Pain in left shoulder, M54.50 - Low back pain, unspecified Erythrocyte Sedimentation Rate 4 Months M32.9 - Systemic lupus erythematosus, unspecified Complement C4 4 Months M32.9 - Systemic lupus erythematosus, unspecified C Reactive Protein 4 Months M32.9 - Systemic lupus erythematosus, unspecified Comprehensive Met. Panel 4 Months 2. - Systemic lupus erythematosus, unspecified Medications: Refilled hydroxychloroquine 200 mg PO BID 180 tabs 1RF M32.9 - Systemic lupus erythematosus, unspecified cyclobenzaprine 5 - 10 mg (1 - 2 x 5 mg) PO BEDTIME 30 tabs 4RF for muscle spasm M62.838 - Other muscle spasm Coding Level of Care Code Est Pt Level 4 (24598) Complex EM visit Add On G2211 Diagnoses Lupus M32.9 Internal derangement of right knee M23.91 Long-term use of hydroxychloroquine Z79.899 High risk medication use Z79.899
[2025-09-08 14:31] VITALS: BP 140/82; PULSE 70; O2SAT 100; BMI 34.7
--- OUTSIDE RECORDS SUMMARY | 2025-09-08 17:19 | XMS_ITS | Clinical Summary ---
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 Spit, do not rinse. Do not eat or drink anything for 30 minutes following brushing. 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 Localized gingival recession 12/27/2023 Periodontal disease 12/27/2023 Dental calculus 12/27/2023 Encounters Date Type Department Care Team Description 08/13/2025 Orders Only GENERIC EXTERNAL DATA DEPARTMENT Provider, Generic External Data from Last 3 Months Immunizations Immunization Administration [...] Team (Late st Contact Info) Description 09/22/2025 10:15 AM EST Office Visit [facility] [address] [place] [address] Rebekah Curiel Health Maintenance Due Date Last Done Comments CT Colonography 1975 Colonoscopy 1975 Colorectal Cancer Screening 1975 Depression Screening 1977 FIT DNA/Cologuard 1975 FIT 1975 FOBT 1975 HIV Screening 1975 Lipid Panel 1977 SDOH Screening 1975 Sigmoidoscopy 1975 Disability Screening 1977 Alcohol/Substance Use Screening 1989 Family Planning (PISQ) 02/06/1992 Pap Smear 1998 Cervical Cancer Screening 2007 HPV/Cotest 2007 Dental Oral Exam 06/10/2024 12/10/2023, , 04/20/2016, Additional history exists Dental Prophylaxis 06/27/2024 12/27/2023, 1 12/21/2017, 04/17/2018, Additional history exists Dental X-Ray: Bitewings 02/07/2025 02/07/20, 12/10/2023, 11/29/2023, Additional history exists Tobacco Screening 03/23/2025 03/23/2024 COVID-19 Vaccine (6 - Moderna risk season) 2025 08/18/2024, 01/03/2023, 09/20/2021, Additional history exists Influenza Vaccine (#1) 2025 , 07/09/2024, 09/27/2023, Additional history exists Dental X-Ray: Full Mouth 12/11/2026 024, 11/24/2015, 10/10/2015 Mammogram 02/02/2027 02/02/2025 DTaP/Tdap/Td Vaccines (3 - Td or Tdap) 04/25/2033 04/25/2023, 01/28/2013, 07/28/2008, Additional history exists RSV Patients and Patients Aged 60 years or older (1 - 1-dose 75+ series) 02/06/2052 Hepatitis B Vaccines Completed 03/08/2009, 11/09/2008, 09/29/2008 Pneumococcal Vaccine: Pediatrics (0 to 5 Years) and At-Risk Patients (6 to 49) Years Completed 10/11/2023, 10/25/2015 Zoster Vaccines Completed 08/13/2024, 06/11/2024 Hepatitis C Screening Completed 04/14/2025 HIB Vaccines Aged Out No longer eligi [...] Procedure Name Priority Date/Time Associated Diagnosis Comments CULTURE, URINE, ROUTINE Routine 08/13/2025 1:56 PM EDT HEPATITIS PANEL, GENERAL Routine 04/14/2025 3:51 PM EDT BI MAMMOGRAM SCREENING TOMOSYNTHESIS BILATERAL Routine 02/02/2025 2:20 PM EDT BITEWINGS - 2 RADIOGRAPHIC IMAGES Routine 02/07/2024 11:00 AM EDT PROPHYLAXIS - ADULT Routine 12/27/2023 1 1:00 AM EST INTRAORAL - COMPLETE SERIES OF RADIOGRAPHIC IMAGES Routine 12/10/2023 9:30 AM EST PERIODIC ORAL EVALUATION - ESTABLISHED PATIENT Routine 12/10/2023 9:30 AM EST from Last 3 Months or Most Recently Relevant to Health Maintenance Results * Culture, Urine, Routine (08/13/2025 1:56 PM EDT) Urine Urine specimen from urinary conduit / Unknown 08/13/2025 1:56 PM EDT 08/13/2025 5:37 PM EDT Comment:Urine Cath Narrative [facility] - 08/16/2025 7:32 AM EDT Escherichia coli Quant > 100,000 cfu/mL Escherichia coli: Ampicillin >=32(R) Escherichia coli: Cefazolin (Urine) <=1(S) Escherichia coli: Cefepime <=0.12(S) Escherichia coli: Ceftriaxone <=0.25(S) Escherichia coli: Ciprofloxacin <=0.06(S) Escherichia coli: Gentamicin <=1(S) Escherichia coli: Nitrofurantoin 64(I) Escherichia coli: Trimethoprim/Sulfamethoxazole <=20(S) Specimen Source: Urine Catheterized Generic External Data Provider LAB MICROBIOLOGY - GENERAL ORDERABLES Final Result Performing Organization Address [facility] Co de Phone Number [facility] [address] [place] [phone] * Hepatitis Panel, General (04/14/2025 3:51 PM EDT) Hepatitis A IgM Nonreactive Nonreactive [facility] Comment:IgM antibodies to CHACON V not detected; does not exclude earlyacute or recovered HAV infection. ~Hepatitis B Surface Antibody NONREACTIVE Nonreactive [facility] Comment:Nonreactive: < 8.00 mIU/mL Hepatitis B Core Antibody Nonreactive Nonreactive [facility] Hepatitis C Antibody Nonreactive Nonreactive [facility] Comment:Antibodies to HCV no t detected; does not exclude early acuteHCV infection. Hepatitis B Surface Ag Negative Negative [facility] 04/14/2025 3:51 PM EDT 04/14/2025 3:51 PM EDT Generic External Data Provider LAB BLOOD ORDERAB LES Final Result Performing Organization Address [facility] Co de Phone Number [facility] [address] [place] [phone] * BI Mammogram Screening Tomosynthesis Bilateral (02/02/2025 2:20 PM EDT) Anatomical Region Laterality Modality Breast Bilateral Mammography 02/02/2025 2:20 PM EDT Narrative 02/02/2025 5:43 PM EDT [facility] [address] [place] [address] Mammography Report Signed Patient: Marilyn Wells I MR#: [id number] : 1975 Acct:[id number] Age/Sex: 49 / F ADM Date: 02/02/25 Loc: HO.MAMMO Attending Dr: Jerri Antunez MD Ordering Physician: Jerri Daniel MD Results: 0Incomplete: Needs Additional Imaging Evaluation Date of Service: 02/02/25 Follow Up: Additional Imagi ng Procedure(s): MM tomosynthesis screening BI Accession Number(s): [id number] cc: Jerri Daniel MD; Rebecca Perez MD [...] 02/02/25 1740 DD/ 1420 TD/TT: 02/02/25 1441 Manager Electronic: Procedure Note Donotuseinterpreter, Image - 02/04/2025 [facility] [address] [place] [address] Dr. [place], ESTELA [address] Mammography Report Signed Patient: Marilyn Wells [facility]#: [id number] : 1975Acct:[id number] Age/Sex: 49 / FADM Date: 02/02/25 Loc: HO.MAMMO Attending Dr: Jerri Antunez MD Ordering Physician: Jerri Daniel MD Results: 0Incomplete: Needs Additional Imaging Evaluation Date of Service: 02/02/25Follow Up: Additional Imagi ng Procedure(s): MM tomosynthesis screening BI Accession Number(s): [id number] cc: Jerri Daniel MD; Rebecca Perez MD [...] 02/02/25 1740 DD/ 1420 TD/TT: 02/02/25 1441 Manager Electronic: [facility] External Provider IMG BI PROCEDURES Edited Result - Final from Last 3 Months or Most Recently Relevant to Health Maintenance Insurance * Guarantor: Marilyn Wells I Account Type Relation to Patient Date of Phone Billing Address Personal/Family Self [address] [place] [address] [facility] STANDARD * Guarantor: Marilyn Wells I Account Type Relation to Patient Date of Phone Billing Address Dental Self [address] [place] [address] [facility] MEDICAID STAND ADULT * Guarantor: Marilyn Wells I Account Type Relation to Patient Date of Phone Billing Address Personal/Family Self [address] [place] [address] * Guarantor: Marilyn Wells I Account Type Relation to Patient Date of Phone Billing Address Personal/Family Self [address] [place] [address] * Guarantor: Marilyn Wells I Account Type Relation to Patient Date of Phone Billing Address Personal/Family Self [address] [place] [address]
--- OUTSIDE RECORDS SUMMARY | 2025-09-08 17:19 | XMS_ITS | Encounter Summary ---
Author Organization [employer] [facility] Address [address] [place] [address] [address] [place] [address] Care Team Providers Care Shift Supervisor Melting Name Role Phone Unavailable Primary Care Provider Unavailabl e Reason for Visit * Reason Comments Med Refill Encounter Details Date Type Department Care Team (Late st Contact Info) Description 06/23/2024 Refill [facility] ADULT DENTAL [address] [place] [address] Pop Oneil DDS [address] [place], [place] [phone] Social History Tobacco Use Types Packs/Day Years [...] Description 09/22/2025 10:15 AM EST Office Visit [facility]ULT [facility] [address] [place] [address] Rebekah Curiel documented as of this encounter Visit Diagnoses Not on filedocumented in this encounter
--- OUTSIDE RECORDS SUMMARY | 2025-09-08 17:20 | XMS_ITS | Clinical Summary ---
Author Organization [facility] Address [address] [place] [phone] Phone Care Team Providers Care Media Account Executive Name Role Phone Pcp, Unknown Primary Care [...] FOBT 2022 SIGMOIDOSCOPY 2022 VIRTUAL COLONOSCOPY 2022 INFLUENZA VACCINE (#1) 2025 10/07/2020 COVID-19 VACCINE (3 - 2024-2 6 season) 2025 01/24/2021, 12/27/2020 HEPATITIS A VACCINES Aged Out [...] topic Medical Devices Not on file Insurance [facility] Care Teams Media Account Executive Relationship Specialty Start Date End Date Pcp, Unknown PCP - General 06/28/23 Additional Source Comments The information contained in this document represents components of the legal health record. It is not the complete legal health record.[facility]
== END 2025-09-08 14:58 | disposition home or self-care (01) ==
LOC: HO.RHES 14:10
PROVIDERS: PCP Student in an Organized Health Care Education/Training Program; Visit Provider Student in an Organized Health Care Education/Training Program
DX: M32.9 Systemic lupus erythematosus, unspecified (principal); M23.91 Unspecified internal derangement of right knee; Z79.899 Other long term (current) drug therapy
CPT/HCPCS: 99214; G2211

== ENCOUNTER 2025-09-09 09:02 | Outpatient (REF) | payer OTHER, SELFPAY ==
--- NOTE | ~2025-09-09 | XR_ITS ---
EXAMINATION: XR SHOULDER, KRIS 3V CLINICAL INFORMATION: M25.511 - Pain in right shoulder COMPARISON: None available. TECHNIQUE: AP external rotation, Grashey, scapular Y, and axillary views of the each shoulder were obtained. FINDINGS: RIGHT SHOULDER: Normal bone mineralization. No fracture, dislocation, or suspicious bone lesion. Normal alignment. The glenohumeral joint demonstrates minimal degenerative arthritis. The AC joint demonstrates mild predominantly superior surface spurring. There is a type II acromion. No undersurface spurring. The subacromial space is preserved. Remainder of the soft tissue and bony structures appear normal. LEFT SHOULDER: Normal bone mineralization. No fracture, dislocation, or suspicious bone lesion. Normal alignment. The glenohumeral joint demonstrates minimal degenerative arthritis. The AC joint demonstrates mild predominantly superior surface spurring. There is a type II acromion. No undersurface spurring. The subacromial space is preserved. Remainder of the soft tissue and bony structures appear normal. A cardiac stent is incidentally noted overlying the left heart. XR/XR Shoulder Kris min 2V IMPRESSION: 1. No acute bony or soft tissue abnormality of either shoulder. 2. 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 3. No subacromial narrowing on either side. Electronically signed by: Jamie Rubio MD 09/09/2025 09:50 AM YEIMI
--- NOTE | ~2025-09-09 | XR_ITS ---
EXAMINATION: XR LUMBAR SPINE 4 OR MORE VIEWS HISTORY: M25.511 - Pain in right shoulder COMPARISON: There are no prior studies for comparison. FINDINGS: AP, lateral, bilateral oblique, and coned down views of the lumbar spine are submitted. Osseous mineralization is normal. Five nonrib-bearing lumbar vertebral bodies are identified, maintaining normal height without evidence of fracture or spondylolisthesis. There is mild leftward curvature which may be positional in nature. The intervertebral disc spaces are preserved. The posterior elements are intact. The visualized paraspinal soft tissues are unremarkable. XR/XR lumbar spine 4V min IMPRESSION: Mild leftward curvature which may be positional in nature. Otherwise unremarkable examination of the lumbar spine. Electronically signed by: Shubham Conway MD 09/09/2025 09:50 AM EST
--- OUTSIDE RECORDS SUMMARY | 2025-09-09 09:46 | XMS_ITS | Encounter Summary ---
Author Organization [employer] [facility] Address [address] [place] [address] [address] [place] [address] Care Team Providers Care Dry Man Name Role Phone Unavailable Primary Care Provider Unavailabl e Reason for Visit * Reason Comments Med Refill Encounter Details Date Type Department Care Team (Late st Contact Info) Description 06/23/2024 Refill [facility]ULT [facility] [address] [place] [address] Pop Oneil DDS [address] [place], [place] [phone] Social History Tobacco Use Types Packs/Day Years [...] Description 09/22/2025 10:15 AM EST Office Visit [facility] ADULT [facility] [address] [place] [address] Rebekah Curiel documented as of this encounter Visit Diagnoses Not on filedocumented in this encounter
--- OUTSIDE RECORDS SUMMARY | 2025-09-09 09:46 | XMS_ITS | Clinical Summary ---
Author Organization [facility] Address [address] [place] [phone] Phone Care Team Providers Care Crude Oil Treater Name Role Phone Pcp, Unknown Primary Care [...] topic Medical Devices Not on file Insurance [facility] Care Teams Crude Oil Treater Relationship Specialty Start Date End Date Pcp, Unknown PCP - General 06/28/23 Additional Source Comments The information contained in this document represents components of the legal health record. It is not the complete legal health record.[facility]
--- OUTSIDE RECORDS SUMMARY | 2025-09-09 09:46 | XMS_ITS | Encounter Summary ---
Author Organization [employer] [facility] Address [address] [place] [address] [address] [place] [address] Care Team Providers Care Window/Distribution Clerk Name Role Phone Unavailable Primary Care Provider Unavailabl e Encounter Details Date Type Department Care Team (Late st Contact Info) Description 09/08/2025 Orders Only GENERIC EXTERNAL DATA DEPARTMENT Provider, Generic External Data Social History Tobacco Use Types Packs/Day Years [...] AM EDT documented as of this encounter Plan of Treatment Upcoming Encounters Date Type Department Care Team (Late st Contact Info) Description 09/22/2025 10:15 AM EST Office Visit [facility] [address] [place] [address] Rebekah Curiel documented as of this encounter Procedures Procedure Name Priority Date/Time Associated Diagnosis Comments PROTEIN CREATININE RATIO, URINE Routine 09/08/2025 3:12 PM EST SLIDE REVIEW Routine 09/08/2025 3:12 PM EST CBC WITH AUTO DIFFERENTIAL Routine 09/08/2025 3:12 PM EST URINALYSIS, COMPLETE Routine 09/08/2025 3:12 PM EST SED RATE BY MODIFIED WESTERGREN Routine 09/08/2025 3:12 PM EST C-REACTIVE PROTEIN Routine 09/08/2025 3: 12 PM EST COMPREHENSIVE METABOLIC PANEL Routine 09/08/2025 3:12 PM EST documented in this encounter Results * Slide Review (09/08/2025 3:12 PM EST) Slide Review VERIFIED [facility] 09/08/2025 3:12 PM EST 09/08/2025 6:07 PM EST us Generic External Data Provider LAB BLOOD ORDERAB LES Final Result [facility] [address] [place] [phone] * (ABNORMAL) Urinalysis Complete (09/08/2025 3:12 PM EST) Color Urine Dark Yellow [facility] Appearance Urine Clear [facility] PH 5.5 5.0 - 9.0 [facility] Glucose Urine UA Negative Negative mg/dL [facility] Urine Blood Small (1+)(A) Negative [facility] Specific [place] - Urine 1.015 1.005 - 1.025 [facility] Urine Protein Trace Neg-Trace mg/dL [facility] Urine Ketones Negative Negative mg/dL [facility] Nitrite Urine Negative Negative [facility] Leukocyte Esterase Urine Negative Negative [facility] RBC Urine 6-10(A) 0 - 2 /HPF [facility] Urine WBC 0-5 0 - 5 /HPF [facility] Urine Squamous Epithelial Cell 3-5 0 - 2 /HPF [facility] Urine Bacteria 1+ None Seen [facility] Hyaline Casts, Urine 0-2 0 - 2 /LPF [facility] 09/08/2025 3:12 PM EST 09/08/2025 6:30 PM EST us Generic External Data Provider LAB URINE ORDERAB LES Final Result Performing Organization Address [facility]/ZIP Co de Phone Number [facility] [address] [place] [phone] [phone] * (ABNORMAL) Sed Rate by Modified Westergren (09/08/2025 3:12 PM EST) Pathologist [facility] Erythrocyte Sedimentation Rate 23(H) 0 - 20 MM/HR [facility] Comment:Patients with polycy themia and many hemoglobin abnormalitiesmay have depressed sed rates whereas patients with anemiamay have elevated sed rates. 09/08/2025 3:12 PM EST 09/08/2025 6:07 PM EST us Generic External Data Provider LAB BLOOD ORDERAB LES Final Result Performing Organization Address [facility] Co de Phone Number [facility] [address] [place] [phone] * (ABNORMAL) CBC auto differential (09/08/2025 3:12 PM EST) [facility] White Blood Count 11.0(H) 4.8 - 10.8 X10*3/uL [facility] Red Blood Count 4.23 4.20 - 5.50 X10*6/uL [facility] Hemoglobin 11.9(L) 12.0 - 16.0 g/dl [facility] Hematocrit 36.7(L) 37.0 - 47.0 % [facility] Mean Corpuscular Volume 86.8 80.0 - 98.0 fL [facility] Mean Corpuscular Hemoglobin 28.1 27.0 - 33.0 pg [facility] Mean Corpuscular HGB Conc 32.4 31.0 - 35.0 g/dl [facility] Red Cell Distribution Width 15.2 11.0 - 16.0 % [facility] Platelet Count 222 160 - 400 X10*3/uL [facility] Mean Platelet Volume 13.6(H) 9.4 - 12.3 fL [facility] Neutrophils Percent Auto 65.6 45 - 73 % [facility] Imm Gran Pct Auto 0.3 0.0 - 0.4 % [facility] Lymphocytes Percent Auto 25.8 20 - 40 % [facility] Monocytes Percent Auto 5.6 2 - 11 % [facility] Eosinophils Percent Auto 1.9 0 - 4 % [facility] Basophils Percent Auto 0.8 0 - 2 % [facility] NRBC Pct Auto 0.0 0.0 - 0.2 /100WBC [facility] Neutrophils Absolute Auto 7.2 2.0 - 8.3 x10*3/uL [facility] Imm Gran Abs Auto 0.03 0.00 - 0.03 X10*3/uL [facility] Lymphocytes Absolute Auto 2.8 1.2 - 4.9 X10*3/uL [facility] Monocytes Absolute Auto 0.6 0.1 - 1.2 X10*3/uL [facility] Eosinophils Absolute Auto 0.2 0.0 - 0.4 X10*3/uL [facility] Basophils Absolute Auto 0.1 0.0 - 0.2 X10*3/uL [facility] NRBC Abs Auto 0.000 0.0 - 0.012 X10*3/uL [facility] 09/08/2025 3:12 PM EST 09/08/2025 6:07 PM EST us Generic External Data Provider LAB BLOOD ORDERAB LES Edited Result - Final [facility] [address] [place] [phone] * Protein Creatinine Ratio, Urine (09/08/2025 3:12 PM EST) Creatinine, Urine 104.37 mg/dL [facility] Protein, Total, Random Urine <7 <12 mg/dL [facility] Protein/Creatin ine Ratio, Ur TNP <0.2 [facility] Comment:Unable to calculate urine protein creatinine ratio due tolow creatinine or protein result. 09/08/2025 3:12 PM EST 09/08/2025 6:30 PM EST us Generic External Data Provider LAB URINE ORDERAB LES Final Result Performing Organization Address City/[facility]/ZIP Co de Phone Number [facility] [address] [place] [phone] * (ABNORMAL) C-reactive Protein (09/08/2025 3:12 PM EST) C Reactive Protein 0.80(H) < or = 0.50 mg/dL [facility] 09/08/2025 3:12 PM EST 09/08/2025 6:07 PM EST Generic External Data Provider LAB BLOOD ORDERAB LES Final Result Performing Organization Address [facility] Co de Phone Number [facility] [address] [place] [phone] * (ABNORMAL) Comprehensive Metabolic Panel (09/08/2025 3:12 PM EST) Sodium 139 135 - 145 mmol/L [facility] Potassium 4.0 3.3 - 5.1 mmol/L [facility] Chloride 107 96 - 108 mmol/L [facility] Carbon Dioxide 27 22 - 29 mmol/L [facility] Anion Gap 9(L) 12 - 20 [facility] Urea Nitrogen (BUN) 11 9 - 16 mg/dL [facility] Creatinine, Serum 0.67 0.5 - 1.4 mg/dL [facility] Estimated Glomerular Filt Rate >60 [facility] Comment:Chronic Kidney Disea se: Estimated GFR < 60 mL/min/[id number] Kidney Disease: Estimated GFR < 15 mL/min/1.73m2 Glucose 66 60 - 115 mg/dL [facility] Calcium 8.7 8.4 - 10.2 mg/dL [facility] Bilirubin, Total 0.2 0.0 - 1.0 mg/dL [facility] Aspartate Amino Transferase 18 5 - 31 U/L [facility] Alanine Aminotransferase 19 0 - 31 U/L [facility] Total Protein 7.4 6.5 - 8.0 g/dL [facility] Albumin Level 4.0 3.5 - 5.0 g/dL [facility] Alkaline Phosphatase 72 39 - 117 U/L [facility] 09/08/2025 3:12 PM EST 09/08/2025 6:07 PM EST us Generic External Data Provider LAB BLOOD ORDERAB LES Final Result [facility] [address], [place] [phone] documented in this encounter Visit Diagnoses Not on filedocumented in this encounter
--- OUTSIDE RECORDS SUMMARY | 2025-09-09 09:46 | XMS_ITS | Clinical Summary ---
Demographics Address [address] [facility] [address] [place] [address] Work Phone Home Phone Mobile Phone Preferred Language es Marital Status Single Oriental Orthodox Affiliation Unknown Race Other Race Ethnic Group Unknown Author Organization [employer] Address [address] [facility] [address] [place] [address] Care Team Providers Care Filemaker Developer Name Role Phone Unavailable Primary Care [...] Sod Fluoride-Potassiu m Nitrate 1.1-5 % paste Jones teeth for 2 minutes, morning and night. Spit, do not rinse. Do not eat or drink anything for 30 minutes following brushing. 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 Localized gingival recession 12/27/2023 Periodontal disease 12/27/2023 Dental calculus 12/27/2023 Encounters Date Type Department Care Team Description 09/08/2025 Orders Only GENERIC EXTERNAL DATA DEPARTMENT Provider, Generic External Data 08/13/2025 Orders Only GENERIC EXTERNAL DATA DEPARTMENT [...] Description 09/22/2025 10:15 AM EST Office Visit [facility] [address] [place] [address] Rebekah Curiel Health Maintenance Due Date Last [...] 03/23/2024 COVID-19 Vaccine (6 - Moderna risk 2023- [...] Procedure Name Priority Date/Time Associated Diagnosis Comments SLIDE REVIEW Routine 09/08/2025 3:12 PM EST URINALYSIS, COMPLETE Routine 09/08/2025 3:12 PM EST SED RATE BY MODIFIED WESTERGREN Routine 09/08/2025 3:12 PM EST CBC WITH AUTO DIFFERENTIAL Routine 09/08/2025 3:12 PM EST PROTEIN CREATININE RATIO, URINE Routine 09/08/2025 3:12 PM EST C-REACTIVE PROTEIN Routine 09/08/2025 3: 12 PM EST COMPREHENSIVE METABOLIC PANEL Routine 09/08/2025 3:12 PM EST CULTURE, URINE, ROUTINE Routine 08/13/2025 1:56 PM [...] Maintenance Results * Protein Creatinine Ratio, Urine (09/08/2025 3:12 PM EST) Creatinine, Urine 104.37 mg/dL [facility] Protein, Total, Random Urine <7 <12 mg/dL [facility] Protein/Creatin ine Ratio, Ur TNP <0.2 [facility] Comment:Unable to calculate urine protein creatinine ratio due tolow creatinine or protein result. 09/08/2025 3:12 PM EST 09/08/2025 6:30 PM EST Generic External Data Provider LAB URINE ORDERAB LES Final Result Performing Organization Address [facility] Co ks Phone Number [facility] [address] [place] [phone] * Slide Review (09/08/2025 3:12 PM EST) Slide Review VERIFIED [facility] 09/08/2025 3:12 PM EST 09/08/2025 6:07 PM EST Generic External Data Provider LAB BLOOD ORDERAB LES Final Result Performing Organization Address [facility] Phone Number [facility] [address] [place] [phone] * (ABNORMAL) CBC auto differential (09/08/2025 3:12 PM EST) White Blood Count 11.0(H) 4.8 - 10.8 X10*3/uL [facility] Red Blood Count 4.23 4.20 - 5.50 X10*6/uL [facility] Hemoglobin 11.9(L) 12.0 - 16.0 g/dl [facility] Hematocrit 36.7(L) 37.0 - 47.0 % [facility] Mean Corpuscular Volume 86.8 80.0 - 98.0 fL [facility] Mean Corpuscular Hemoglobin 28.1 27.0 - 33.0 pg [facility] Mean Corpuscular HGB Conc 32.4 31.0 - 35.0 g/dl [facility] Red Cell Distribution Width 15.2 11.0 - 16.0 % [facility] Platelet Count 222 160 - 400 X10*3/uL [facility] Mean Platelet Volume 13.6(H) 9.4 - 12.3 fL [facility] Neutrophils Percent Auto 65.6 45 - 73 % [facility] Imm Gran Pct Auto 0.3 0.0 - 0.4 % [facility] Lymphocytes Percent Auto 25.8 20 - 40 % [facility] Monocytes Percent Auto 5.6 2 - 11 % [facility] Eosinophils Percent Auto 1.9 0 - 4 % [facility] Basophils Percent Auto 0.8 0 - 2 % [facility] NRBC Pct Auto 0.0 0.0 - 0.2 /100WBC [facility] Neutrophils Absolute Auto 7.2 2.0 - 8.3 x10*3/uL [facility] Imm Gran Abs Auto 0.03 0.00 - 0.03 X10*3/uL [facility] Lymphocytes Absolute Auto 2.8 1.2 - 4.9 X10*3/uL [facility] Monocytes Absolute Auto 0.6 0.1 - 1.2 X10*3/uL [facility] Eosinophils Absolute Auto 0.2 0.0 - 0.4 X10*3/uL [facility] Basophils Absolute Auto 0.1 0.0 - 0.2 X10*3/uL [facility] NRBC Abs Auto 0.000 0.0 - 0.012 X10*3/uL [facility] 09/08/2025 3:12 PM EST 09/08/2025 6:07 PM EST us Generic External Data Provider LAB BLOOD ORDERAB LES Edited Result - Final [facility] [address] [place] [phone] * (ABNORMAL) Urinalysis Complete (09/08/2025 3:12 PM EST) Color Urine Dark Yellow [facility] Appearance Urine Clear [facility] PH 5.5 5.0 - 9.0 [facility] Glucose Urine UA Negative Negative mg/dL [facility] Urine Blood Small (1+)(A) Negative [facility] Specific [place] - Urine 1.015 1.005 - 1.025 [facility] Urine Protein Trace Neg-Trace mg/dL [facility] Urine Ketones Negative Negative mg/dL [facility] Nitrite Urine Negative Negative [facility] Leukocyte Esterase Urine Negative Negative [facility] RBC Urine 6-10(A) 0 - 2 /HPF [facility] Urine WBC 0-5 0 - 5 /HPF [facility] Urine Squamous Epithelial Cell 3-5 0 - 2 /HPF [facility] Urine Bacteria 1+ None Seen [facility] Hyaline Casts, Urine 0-2 0 - 2 /LPF [facility] 09/08/2025 3:12 PM EST 09/08/2025 6:30 PM EST us Generic External Data Provider LAB URINE ORDERAB LES Final Result Performing Organization Address [facility]/State/ZIP Co de Phone Number [facility] [address] [place] [phone] * (ABNORMAL) Sed Rate by Modified Dottieren (09/08/2025 3:12 PM EST) Erythrocyte Sedimentation Rate 23(H) 0 - 20 MM/HR [facility] Comment:Patients with polycy themia and many hemoglobin abnormalitiesmay have depressed sed rates whereas patients with anemiamay have elevated sed rates. 09/08/2025 3:12 PM EST 09/08/2025 6:07 PM EST us Generic External Data Provider LAB BLOOD ORDERAB LES Final Result Performing Organization Address [facility]/ZIP Co de Phone Number [facility] [address] [place] [address] [phone] * (ABNORMAL) C-reactive Protein (09/08/2025 3:12 PM EST) Pathologist [facility] C Reactive Protein 0.80(H) < or = 0.50 mg/dL [facility] 09/08/2025 3:12 PM EST 09/08/2025 6:07 PM EST Generic External Data Provider LAB BLOOD ORDERAB LES Final Result Performing Organization Address [facility] de Phone Number [facility] [address] [place] [phone] * (ABNORMAL) Comprehensive Metabolic Panel (09/08/2025 3:12 PM EST) [facility] Sodium 139 135 - 145 mmol/L [facility] Potassium 4.0 3.3 - 5.1 mmol/L [facility] Chloride 107 96 - 108 mmol/L [facility] Carbon Dioxide 27 22 - 29 mmol/L [facility] Anion Gap 9(L) 12 - 20 [facility] Urea Nitrogen (BUN) 11 9 - 16 mg/dL [facility] Creatinine, Serum 0.67 0.5 - 1.4 mg/dL [facility] Estimated Glomerular Filt Rate >60 [facility] Comment:Chronic Kidney Disea se: Estimated GFR < 60 mL/min/[id number] Kidney Disease: Estimated GFR < 15 mL/min/1.73m2 Glucose 66 60 - 115 mg/dL [facility] Calcium 8.7 8.4 - 10.2 mg/dL [facility] Bilirubin, Total 0.2 0.0 - 1.0 mg/dL [facility] Aspartate Amino Transferase 18 5 - 31 U/L [facility] Alanine Aminotransferase 19 0 - 31 U/L [facility] Total Protein 7.4 6.5 - 8.0 g/dL [facility] Albumin Level 4.0 3.5 - 5.0 g/dL [facility] Alkaline Phosphatase 72 39 - 117 U/L [facility] 09/08/2025 3:12 PM EST 09/08/2025 6:07 PM EST Generic External Data Provider LAB BLOOD ORDERAB LES Final Result Performing Organization Address [facility] de Phone Number [facility] [address] [place] [phone] * Culture, Urine, Routine (08/13/2025 1:56 PM EDT) Urine Urine specimen from urinary conduit / Unknown 08/13/2025 1:56 PM EDT 08/13/2025 5:37 PM EDT Comment:Urine Cath Narrative [facility] - 08/16/2025 7:32 AM EDT [...] GENERAL ORDERABLES Final Result Performing Organization Address [facility] de Phone Number [facility] [address] [place] [phone] * Hepatitis Panel, General (04/14/2025 3:51 PM EDT) Hepatitis A IgM Nonreactive Nonreactive [facility] Comment:IgM antibodies to CHACON V not detected; does not exclude earlyacute or recovered HAV infection. ~Hepatitis B Surface Antibody NONREACTIVE Nonreactive [facility] Comment:Nonreactive: < 8.00 mIU/mL Hepatitis B Core Antibody Nonreactive Nonreactive [facility] Hepatitis C Antibody Nonreactive Nonreactive [facility] Comment:Antibodies to HCV no t detected; does not exclude early acuteHCV infection. Hepatitis B Surface Ag Negative Negative [facility] 04/14/2025 3:51 PM EDT 04/14/2025 3:51 PM EDT us Generic External Data Provider LAB BLOOD ORDERAB LES Final Result [facility] [address] [place] [phone] * BI Mammogram Screening Tomosynthesis Bilateral (02/02/2025 2:20 PM EDT) Anatomical Region Laterality Modality Breast Bilateral Mammography 02/02/2025 2:20 PM EDT Narrative 02/02/2025 5:43 PM EDT [address] [place] [address] Mammography Report Signed Patient: Marilyn Wells I MR#: [id number] : 1975 Acct:[id number] Age/Sex: 49 / F ADM Date: 02/02/25 Loc: HO.MAMMO Attending Dr: Jerri Antunez MD Ordering Physician: Jerri Daniel MD Results: 0Incomplete: Needs Additional Imaging Evaluation Date of Service: 02/02/25 Follow Up: Additional Imagi ng Procedure(s): MM tomosynthesis screening BI Accession Number(s): [id number] cc: Jerri Daniel MD; Rebecca Perez MD [...] Pepper Guzman DO 02/02/2025 05:40 PM EDT RP Dictated By: Pepper Guzman DO Signed By: <Electronically signed by Pepper Guzman DO in OV> 02/02/25 1740 DD/ 1420 TD/TT: 02/02/25 1441 Passport Support Manager: Procedure Note Donotuseinterpreter, Image - 02/04/2025 [facility] [address] [place] [address] Mammography Report Signed Patient: Marilyn Wells [facility]#: [id number] : 1975Acct:[id number] Age/Sex: 49 / FADM Date: 02/02/25 Loc: HO.MAMMO Attending Dr: Jerri Antunez MD Ordering Physician: Jerri Daniel MD Results: 0Incomplete: Needs Additional Imaging Evaluation Date of Service: 02/02/25Follow Up: Additional Imagi ng Procedure(s): MM tomosynthesis screening BI Accession Number(s): [id number] cc: Jerri Daniel MD; Rebecca Perez MD [...] Pepper Guzman DO 02/02/2025 05:40 PM EDT RP Dictated By: Pepper Guzman DO Signed By: <Electronically signed by Pepper Guzman DO in OV> 02/02/25 1740 DD/ 1420 TD/TT: 02/02/25 1441 Passport Support Manager: [facility] External Provider IMG BI PROCEDURES Edited Result - Final from Last 3 Months or Most Recently Relevant to Health Maintenance Insurance * Guarantor: Marilyn Wells I Account Type Relation to Patient Date of Phone Billing Address Personal/Family Self 1975 [address] [place] [address] [facility] STANDARD * Guarantor: Marilyn Wells I Account Type Relation to Patient Date of Phone Billing Address Dental Self [address] [place] [address] [facility] MEDICAID STAND ADULT * Guarantor: Marilyn Wells I Account Type Relation to Patient Date of Phone Billing Address Personal/Family Self [address] [place] [address] * Guarantor: Marilyn Wells I Account Type Relation to Patient Date of Phone Billing Address Personal/Family Self [address] [place] [address] * Guarantor: Marilyn Wells I Account Type Relation to Patient Date of Phone Billing Address Personal/Family Self [address] [place] [address]
== END 2025-09-09 09:03 | disposition home or self-care (01) ==
LOC: HO.XRAY 09:02
PROVIDERS: PCP Student in an Organized Health Care Education/Training Program; Visit Provider Student in an Organized Health Care Education/Training Program
DX: M25.511 Pain in right shoulder (principal); M25.512 Pain in left shoulder; M54.50 Low back pain, unspecified
CPT/HCPCS: 72110; 73030

== ENCOUNTER → 2025-09-09 09:05 | Outpatient (BNV) | payer OTHER, SELFPAY | PROVIDERS: PCP Student in an Organized Health Care Education/Training Program; Visit Provider Radiology Diagnostic Radiology | DX: M25.511 Pain in right shoulder (principal); M19.011 Primary osteoarthritis, right shoulder; M19.012 Primary osteoarthritis, left shoulder | CPT/HCPCS: 72110; 73030 ==

== ENCOUNTER 2025-09-23 13:13 | Outpatient (AMB) | payer OTHER, SELFPAY ==
[2025-09-23 13:16] VITALS: BP 122/67; PULSE 85; O2SAT 100; BMI 34.9
--- NOTE | 2025-09-23 13:16 | MHC.OFFVIS ---
Vital Signs 09/23/25 13:16 Height 5 ft 6 in Weight 216 lb BMI 34.9 BP 122/67 Blood Pressure Location Rt brachial Position Sitting Pulse 85 Pulse Source Pulse Oximeter Pulse Oximetry (%) 100 Oxygen Delivery Method Room Air Intake Visit Reasons: Asthma Allergies No Known Allergies Allergy (Verified 09/23/25 13:21) HPI HPI Asthma: Details: 50-year-old lady, former 5 pack-year smoker, with underlying history of lupus on hydroxychloroquine, environmental allergies under prep manager care, followed for asthma and AIR[facility]. After the last office visit she has been started on Dupixent with improved symptom control. She also continues on Symbicort, Singulair, and albuterol MDI. She denies recent exacerbations. FORMERLY [facility], 1928–1983 Medical History Non-ST elevated myocardial infarction (non-STEMI) CAD (coronary artery disease) Smoker Dvt femoral (deep venous thrombosis) Gout GERD (gastroesophageal reflux disease) Vertigo Asthma Migraine Anxiety and depression Fibromyalgia Neuropathy H/O Sjogren's disease Discoid lupus Lupus Surgical History S/P cardiac catheterization Hx of hysterectomy Hx of thumb surgery Hx of knee surgery Family History Other Arthritis Lupus Social History Household Members: Family Housing: Apartment Do you presently have visiting nurse or other home services: No Alcohol intake: former Patient Tobacco Use Status: Current everyday Tobacco user Tobacco use type: Cigarette Cigarette Packs Per Day: 0.5 Cigarettes Per Day: 10.0 service: No Current occupational status: unemployed Review of Systems Const Denies daytime sleepiness, Denies excessive sweating, Denies fatigue, Denies fever(s), Denies lethargy, Denies malaise, Denies night sweats, Denies snoring and Denies weight loss Eyes Denies blurry vision and Denies itchy eyes ENT Denies nasal congestion, Denies post nasal drip, Denies sinus pain, Denies sinus pressure and Denies other ( Thrush) Card Denies chest pain, Denies pedal edema, Denies dyspnea, Denies orthopnea and Denies paroxysmal nocturnal dyspnea Resp Denies cough, Denies hemoptysis, Denies excessive phlegm production, Denies dyspnea, Denies snoring and Denies wheezing GI Denies abdominal pain and Denies heartburn Musc Denies myalgias, Denies arthralgias and Denies joint swelling Skin/Breast Denies rash Neuro Denies memory loss and Denies seizure-like activity Psych Denies abnormal sleep pattern, Denies anxiety and Denies memory loss Endo Denies excessive sweating, Denies fatigue and Denies heat intolerance Tuan/Lymph Denies easy bruising Aller/Immun Denies itchy eyes, Denies seasonal rhinorrhea and Denies wheezing Physical Exam Vital Signs: Last Vital Signs Pulse 85 09/23/25 13:16 BP 122/67 09/23/25 13:16 Pulse Ox 100 09/23/25 13:16 Oxygen Delivery Method Room Air 09/23/25 13:16 BMI result Body Mass Index 34.9 Const General: no acute distress and alert Nutritional Appearance: not obese Orientation/consciousness: Other orientation findings ( oriented) HEENT Head: Yes atraumatic Eyes General: appearance normal, both eyes and all related structures Sclerae: sclerae normal EOM: EOMs intact bilaterally Neck Neck: Yes supple Lymphatic: no lymphadenopathy noted Resp Effort & Inspection: normal respiratory effort and no use of accessory muscles Auscultation: clear to auscultation bilaterally Cardio Rate: regular rate Rhythm: regular rhythm Heart sounds: no gallops, no murmurs and no rubs Skin General skin exam: other ( warm) Extrem General: No clubbing, No cyanosis and No edema Assessment & Plan Assessment & Plan (1) Asthma: Code(s): J45.909 - Unspecified asthma, uncomplicated Category: Medical Plan: Significantly improved control on Dupixent, Symbicort, and albuterol MDI/nebs. Continue current regimen. (2) Environmental allergies: Code(s): Z91.09 - Other allergy status, other than to drugs and biological substances Category: Medical Plan: Now well controlled on Dupixent and Singulair. Continue current regimen. Coding Level of Care Code Est Pt Level 4 (10991) Diagnoses Asthma J45.909 Environmental allergies Z91.09
--- OUTSIDE RECORDS SUMMARY | 2025-09-23 18:46 | XMS_ITS | Clinical Summary ---
Demographics Address [address] [facility] [address] [place] [address] Work Phone Home Phone Mobile Phone Preferred Language es Marital Status Single Yarsani Affiliation Unknown Race Other Race Ethnic Group Unknown Author Organization [employer] Address [address] [facility] [address] [place] [address] Care Team Providers Care Oracle R12 Developer Name Role Phone Unavailable Primary Care [...] Sod Fluoride-Potassiu m Nitrate 1.1-5 % paste [place] teeth for 2 minutes, morning and night. Spit, do not rinse. Do not eat or drink anything for 30 minutes following brushing. 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 Localized gingival recession 12/27/2023 Periodontal disease 12/27/2023 Dental calculus 12/27/2023 Encounters Date Type Department Care Team Description 09/09/2025 Orders Only [facility] External Provider, [facility] 09/08/2025 Orders Only GENERIC EXTERNAL DATA DEPARTMENT [...] Care Team (Late st Contact Info) Description 09/24/2025 1:30 PM EST Office Visit [facility] [address] [place] [address] Rebekah Curiel Health Maintenance Due Date Last [...] exists Tobacco Screening 03/23/2025 03/23/2024 COVID-19 Vaccine ( season) 2025 08/18/2024, 01/03/2023, 09/20/2021, Additional history exists Dental X-Ray: Full Mouth [...] 08/13/2024, 06/11/2024 Hepatitis C Screening Completed 04/14/2025 Influenza Vaccine Completed 08/23/2025, , 07/09/2024, Additional history exists HIB Vaccines Aged Out [...] Procedure Name Priority Date/Time Associated Diagnosis Comments XR LUMBAR SPINE COMPLETE 4+ VIEWS Routine 09/09/2025 9:36 AM EST XR SHOULDER 2+ VIEWS BILATERAL Routine 09/09/2025 9:30 AM EST DNA (DS) ANTIBODY Routine 09/08/2025 3:1 2 PM EST COMPLEMENT COMPONENT C4C Routine 09/08/2025 3:12 PM EST COMPLEMENT COMPONENT C3C Routine 09/08/2025 3:12 PM EST SLIDE REVIEW [...] Recently Relevant to Health Maintenance Results * XR Lumbar Spine Complete 4+ Views (09/09/2025 9:36 AM EST) Anatomical Region Laterality Modality Spine, L-spine Radiographic Jona ging 09/09/2025 9:36 AM EST Narrative 09/09/2025 9:53 AM EST [place] [address] XRay Report Signed Patient: Marilyn Wells I MR#: [id number] : 1975 Acct:[id number] Age/Sex: 50 / F ADM Date: 09/09/25 Loc: HO.XRAY Attending Dr: Archana Donald MD Ordering Physician: Arcahna Donald MD Date of Service: 09/09/25 Procedure(s): XR lumbar spine 4V min Accession Number(s): [id number] cc: Archana Donald MD; Rebecca Perez MD Reason for Exam: M25.511 - Pain in right shoulder EXAMINATION: XR LUMBAR SPINE 4 OR MORE VIEWS HISTORY: M25.511 - Pain in right shoulder COMPARISON: There are no prior studies for comparison. FINDINGS: AP, lateral, bilateral oblique, and coned down views of the lumbar spine are submitted. Osseous mineralization is normal. Five nonrib-bearing lumbar vertebral bodies are identified, maintaining normal height without evidence of fracture or spondylolisthesis. There is mild leftward curvature which may be positional in nature. The intervertebral disc spaces are preserved. The posterior elements are intact. The visualized paraspinal soft tissues are unremarkable. XR/XR lumbar spine 4V min IMPRESSION: Mild leftward curvature which may be positional in nature. Otherwise unremarkable examination of the lumbar spine. Electronically signed by: Shubham Conway MD 09/09/2025 09:50 AM EST RP Dictated By: Shubham Conway MD Signed By: <Electronically signed by Shubham Conway MD in OV> 09/09/2550 DD/ TD/TT: 09/09/2545 Telephone Quotation Clerk: Procedure Note Donotuseinterpreter, Image - 09/10/2025 [place] [address] XRay Report Signed Patient: Marilyn Wells IMR#: [id number] : 1975Acct:[id number] Age/Sex: 50 / FADM Date: 09/09/25 Loc: BO Attending Dr: Archana Donald MD Ordering Physician: Archana Donald MD Date of Service: 09/09/25 Procedure(s): XR lumbar spine 4V min Accession Number(s): [id number] cc: Archana Donald MD; Rebecca Perez MD Reason for Exam: M25.511 - Pain in right shoulder EXAMINATION: XR LUMBAR SPINE 4 OR MORE VIEWS HISTORY: M25.511 - Pain in right shoulder COMPARISON: There are no prior studies for comparison. FINDINGS: AP, lateral, bilateral oblique, and coned down views of the lumbar spine are submitted. Osseous mineralization is normal. Five nonrib-bearing lumbar vertebral bodies are identified, maintaining normal height without evidence of fracture or spondylolisthesis. There is mild leftward curvature which may be positional in nature. The intervertebral disc spaces are preserved. The posterior elements are intact. The visualized paraspinal soft tissues are unremarkable. XR/XR lumbar spine 4V min IMPRESSION: Mild leftward curvature which may be positional in nature. Otherwise unremarkable examination of the lumbar spine. Electronically signed by: Shubham Conway MD 09/09/2025 09:50 AM EST RP Dictated By: Shubham Conway MD Signed By: <Electronically signed by Shubham Conway MD in OV> 09/09/2550 DD/ TD/TT: 09/09/25944 Telephone Quotation Clerk: [facility] External Provider IMG XR PROCEDURES Final Result * XR Shoulder 2+ Views Bilateral (09/09/2025 9:30 AM EST) Anatomical Region Laterality Modality Upper Extremities, Shoulder Bilateral Radi ographic Imaging 09/09/2025 9:30 AM EST Narrative 09/09/2025 9:53 AM EST [address] [address] XRay Report Signed Patient: Marilyn Wells I MR#: [id number] : 1975 Acct:[id number] Age/Sex: 50 / F ADM Date: 09/09/25 Loc: HO.XRAY Attending Dr: Archana Donald MD Ordering Physician: Archana Donald MD Date of Service: 09/09/25 Procedure(s): XR Shoulder Kris min 2V Accession Number(s): [id number] cc: Archana Donald MD; Rebecca Perez MD Reason for Exam: M25.511 - Pain in right shoulder EXAMINATION: XR SHOULDER, KRIS 3V CLINICAL INFORMATION: M25.511 - Pain in right shoulder COMPARISON: None available. TECHNIQUE: AP external rotation, Grashey, scapular Y, and axillary views of the each shoulder were obtained. FINDINGS: RIGHT SHOULDER: Normal bone mineralization. No fracture, dislocation, or suspicious bone lesion. Normal alignment. The glenohumeral joint demonstrates minimal degenerative arthritis. The AC joint demonstrates mild predominantly superior surface spurring. There is a type II acromion. No undersurface spurring. The subacromial space is preserved. Remainder of the soft tissue and bony structures appear normal. LEFT SHOULDER: Normal bone mineralization. No fracture, dislocation, or suspicious bone lesion. Normal alignment. The glenohumeral joint demonstrates minimal degenerative arthritis. The AC joint demonstrates mild predominantly superior surface spurring. There is a type II acromion. No undersurface spurring. The subacromial space is preserved. Remainder of the soft tissue and bony structures appear normal. A cardiac stent is incidentally noted overlying the left heart. XR/XR Shoulder Kris min 2V IMPRESSION: 1. No acute bony or soft tissue abnormality of either shoulder. 2. 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 3. No subacromial narrowing on either side. Electronically signed by: Jamie Rubio MD 09/09/2025 09:50 AM EST Dictated By: Jamie Rubio MD Signed By: <Electronically signed by Jamie Rubio MD in OV> 09/09/2550 DD/ 9 TD/TT: 09/09/25944 Telephone Quotation Clerk: Procedure Note Donotuseinterpreter, Image - 09/10/2025 [place] [address] XRay Report Signed Patient: [facility] Wells [facility] [id number] : 1975Acct:[id number] Age/Sex: 50 / FADM Date: 09/09/25 Loc: HO.XRAY Attending Dr: Archana Donald MD Ordering Physician: Archana Donald MD Date of Service: 09/09/25 Procedure(s): XR Shoulder Kris min 2V Accession Number(s): [id number] cc: Archana Donald MD; Rebecca Perez MD Reason for Exam: M25.511 - Pain in right shoulder EXAMINATION: XR SHOULDER, KRIS 3V CLINICAL INFORMATION: M25.511 - Pain in right shoulder COMPARISON: None available. TECHNIQUE: AP external rotation, Grashey, scapular Y, and axillary views of the each shoulder were obtained. FINDINGS: RIGHT SHOULDER: Normal bone mineralization. No fracture, dislocation, or suspicious bone lesion. Normal alignment. The glenohumeral joint demonstrates minimal degenerative arthritis. The AC joint demonstrates mild predominantly superior surface spurring. There is a type II acromion. No undersurface spurring. The subacromial space is preserved. Remainder of the soft tissue and bony structures appear normal. LEFT SHOULDER: Normal bone mineralization. No fracture, dislocation, or suspicious bone lesion. Normal alignment. The glenohumeral joint demonstrates minimal degenerative arthritis. The AC joint demonstrates mild predominantly superior surface spurring. There is a type II acromion. No undersurface spurring. The subacromial space is preserved. Remainder of the soft tissue and bony structures appear normal. A cardiac stent is incidentally noted overlying the left heart. XR/XR Shoulder Kris min 2V IMPRESSION: 1. No acute bony or soft tissue abnormality of either shoulder. 2. 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 3. No subacromial narrowing on either side. Electronically signed by: Jamie Rubio MD 09/09/2025 09:50 AM EST Dictated By: Jamie Rubio MD Signed By: <Electronically signed by Jamie Rubio MD in OV> 09/09/25949 DD/ 9 TD/TT: 09/09/25944 Telephone Quotation Clerk: [facility] External Provider IMG XR PROCEDURES Final Result * Protein Creatinine Ratio, Urine (09/08/2025 3:12 PM EST) Creatinine, Urine 104.37 mg/dL [facility] Protein, Total, Random Urine <7 <12 mg/dL [facility] Protein/Creatin ine Ratio, Ur TNP <0.2 [facility] Comment:Unable to calculate urine protein creatinine ratio due tolow creatinine or protein result. 09/08/2025 3:12 PM EST 09/08/2025 6:30 PM EST Generic External Data Provider LAB URINE ORDERAB LES Final Result [facility] [address] [place] [address] [phone] * Slide Review (09/08/2025 3:12 PM EST) Slide Review VERIFIED [facility] 09/08/2025 3:12 PM EST 09/08/2025 6:07 PM EST us Generic External Data Provider LAB BLOOD ORDERAB LES Final Result [facility] [address] [place] [phone] * (ABNORMAL) CBC auto differential (09/08/2025 3:12 PM EST) White Blood Count 11.0(H) 4.8 - 10.8 X10*3/uL [facility] Red Blood Count 4.23 4.20 - 5.50 X10*6/uL [facility] Hemoglobin 11.9(L) 12.0 - 16.0 g/dl [facility] Hematocrit 36.7(L) 37.0 - 47.0 % [facility] Mean Corpuscular Volume 86.8 80.0 - 98.0 fL [facility] Mean Corpuscular Hemoglobin 28.1 27.0 - 33.0 pg [facility] Mean Corpuscular HGB Conc 32.4 31.0 - 35.0 g/dl [facility] Red Cell Distribution Width 15.2 11.0 - 16.0 % [facility] Platelet Count 222 160 - 400 X10*3/uL [facility] Mean Platelet Volume 13.6(H) 9.4 - 12.3 fL [facility] Neutrophils Percent Auto 65.6 45 - 73 % [facility] Imm Gran Pct Auto 0.3 0.0 - 0.4 % [facility] Lymphocytes Percent Auto 25.8 20 - 40 % [facility] Monocytes Percent Auto 5.6 2 - 11 % [facility] Eosinophils Percent Auto 1.9 0 - 4 % [facility] Basophils Percent Auto 0.8 0 - 2 % [facility] NRBC Pct Auto 0.0 0.0 - 0.2 /100WBC [facility] Neutrophils Absolute Auto 7.2 2.0 - 8.3 x10*3/uL [facility] Imm Gran Abs Auto 0.03 0.00 - 0.03 X10*3/uL [facility] Lymphocytes Absolute Auto 2.8 1.2 - 4.9 X10*3/uL [facility] Monocytes Absolute Auto 0.6 0.1 - 1.2 X10*3/uL [facility] Eosinophils Absolute Auto 0.2 0.0 - 0.4 X10*3/uL [facility] Basophils Absolute Auto 0.1 0.0 - 0.2 X10*3/uL [facility] NRBC Abs Auto 0.000 0.0 - 0.012 X10*3/uL [facility] 09/08/2025 3:12 PM EST 09/08/2025 6:07 PM EST Generic External Data Provider LAB BLOOD ORDERAB LES Edited Result - Final Performing Organization Address [facility] Co de Phone Number [facility] [address] [place] [phone] * DNA (ds) Antibody (09/08/2025 3:12 PM EST) Anti DNA DS Antibody 4 IU/mL [facility] Comment:IU/mL Interpretation < or = 4 Negative 5-9 Indeterminate > or = 10 PositiveTHIS TEST WAS PERFORMED AT:[facility] [place] [phone] PAREDES MD 09/08/2025 3:12 PM EST 09/08/2025 6:07 PM EST Generic External Data Provider LAB BLOOD ORDERAB LES Final Result Performing Organization Address [facility] Co de Phone Number [facility] [address] [place] [phone] * (ABNORMAL) Urinalysis Complete (09/08/2025 3:12 PM EST) Color Urine Dark Yellow [facility] Appearance Urine Clear [facility] PH 5.5 5.0 - 9.0 [facility] Glucose Urine UA Negative Negative mg/dL [facility] Urine Blood Small (1+)(A) Negative [facility] Specific [place] - Urine 1.015 1.005 - 1.025 [facility] Urine Protein Trace Neg-Trace mg/dL [facility] Urine Ketones Negative Negative mg/dL [facility] Nitrite Urine Negative Negative [facility] Leukocyte Esterase Urine Negative Negative [facility] RBC Urine 6-10(A) 0 - 2 /HPF [facility] Urine WBC 0-5 0 - 5 /HPF [facility] Urine Squamous Epithelial Cell 3-5 0 - 2 /HPF [facility] Urine Bacteria 1+ None Seen [facility] Hyaline Casts, Urine 0-2 0 - 2 /LPF [facility] 09/08/2025 3:12 PM EST 09/08/2025 6:30 PM EST Generic External Data Provider LAB URINE ORDERAB LES Final Result Performing Organization Address [facility] Co de Phone Number [facility] [address] [place] [phone] * (ABNORMAL) Sed Rate by Modified Lara (09/08/2025 3:12 PM EST) Pathologist [facility] Erythrocyte Sedimentation Rate 23(H) 0 - 20 MM/HR [facility] Comment:Patients with polycy themia and many hemoglobin abnormalitiesmay have depressed sed rates whereas patients with anemiamay have elevated sed rates. 09/08/2025 3:12 PM EST 09/08/2025 6:07 PM EST Generic External Data Provider LAB BLOOD ORDERAB LES Final Result Performing Organization Address [facility] Co de Phone Number [facility] [address] [place] [phone] * Complement Component C3c (09/08/2025 3:12 PM EST) Complement C3 123 83 - 193 mg/dL [facility] Comment:THIS TEST WAS PERFOR MED AT:[facility] [address] [phone] PAREDES MD 09/08/2025 3:12 PM EST 09/08/2025 6:00 PM EST us Generic External Data Provider LAB BLOOD ORDERAB LES Final Result Performing Organization Address [facility] Co de Phone Number [facility] [address] [place] [phone] * Complement Component C4c (09/08/2025 3:12 PM EST) Complement C4 29 15 - 57 mg/dL [facility] Comment:THIS TEST WAS PERFOR MED AT:[facility] [address] [phone] PAREDES MD 09/08/2025 3:12 PM EST 09/08/2025 6:00 PM EST us Generic External Data Provider LAB BLOOD ORDERAB LES Final Result Performing Organization Address [facility] Phone Number [facility] [address] [place] [phone] * (ABNORMAL) C-reactive Protein (09/08/2025 3:12 PM EST) C Reactive Protein 0.80(H) < or = 0.50 mg/dL [facility] 09/08/2025 3:12 PM EST 09/08/2025 6:07 PM EST us Generic External Data Provider LAB BLOOD ORDERAB LES Final Result Performing Organization Address [facility] de Phone Number [facility] [address] [place] [phone] * (ABNORMAL) Comprehensive Metabolic Panel (09/08/2025 3:12 PM EST) Sodium 139 135 - 145 mmol/L [facility] Potassium 4.0 3.3 - 5.1 mmol/L [facility] Chloride 107 96 - 108 mmol/L [facility] Carbon Dioxide 27 22 - 29 mmol/L [facility] Anion Gap 9(L) 12 - 20 [facility] Urea Nitrogen (BUN) 11 9 - 16 mg/dL [facility] Creatinine, Serum 0.67 0.5 - 1.4 mg/dL [facility] Estimated Glomerular Filt Rate >60 [facility] Comment:Chronic Kidney Disea se: Estimated GFR < 60 mL/min/1.01l2Wqibpl Kidney Disease: Estimated GFR < 15 mL/min/1.73m2 Glucose 66 60 - 115 mg/dL [facility] Calcium 8.7 8.4 - 10.2 mg/dL [facility] Bilirubin, Total 0.2 0.0 - 1.0 mg/dL [facility] Aspartate Amino Transferase 18 5 - 31 U/L [facility] Alanine Aminotransferase 19 0 - 31 U/L [facility] Total Protein 7.4 6.5 - 8.0 g/dL [facility] Albumin Level 4.0 3.5 - 5.0 g/dL [facility] Alkaline Phosphatase 72 39 - 117 U/L [facility] 09/08/2025 3:12 PM EST 09/08/2025 6:07 PM EST us Generic External Data Provider LAB BLOOD ORDERAB LES Final Result [facility] [address] [place] [phone] * Culture, Urine, Routine (08/13/2025 1:56 PM EDT) Urine Urine specimen from urinary conduit / Unknown 08/13/2025 1:56 PM EDT 08/13/2025 5:37 PM EDT Comment:Urine Cath Narrative [facility] - 08/16/2025 7:32 AM EDT Escherichia coli Quant > 100,000 cfu/mL Escherichia coli: Ampicillin >=32(R) Escherichia coli: Cefazolin (Urine) <=1(S) Escherichia coli: Cefepime <=0.12(S) Escherichia coli: Ceftriaxone <=0.25(S) Escherichia coli: Ciprofloxacin <=0.06(S) Escherichia coli: Gentamicin <=1(S) Escherichia coli: Nitrofurantoin 64(I) Escherichia coli: Trimethoprim/Sulfamethoxazole <=20(S) Specimen Source: Urine Catheterized Generic External Data Provider LAB MICROBIOLOGY - GENERAL ORDERABLES Final Result Performing Organization Address [facility] Co de Phone Number [facility] [address] [place] [phone] * Hepatitis Panel, General (04/14/2025 3:51 PM EDT) Hepatitis A IgM Nonreactive Nonreactive [facility] Comment:IgM antibodies to CHACON V not detected; does not exclude earlyacute or recovered HAV infection. ~Hepatitis B Surface Antibody NONREACTIVE Nonreactive [facility] Comment:Nonreactive: < 8.00 mIU/mL Hepatitis B Core Antibody Nonreactive Nonreactive [facility] Hepatitis C Antibody Nonreactive Nonreactive [facility] Comment:Antibodies to HCV no t detected; does not exclude early acuteHCV infection. Hepatitis B Surface Ag Negative Negative [facility] 04/14/2025 3:51 PM EDT 04/14/2025 3:51 PM EDT Generic External Data Provider LAB BLOOD ORDERAB LES Final Result Performing Organization Address [facility] Co de Phone Number [facility] [address] [place] [phone] * BI Mammogram Screening Tomosynthesis Bilateral (02/02/2025 2:20 PM EDT) Anatomical Region Laterality Modality Breast Bilateral Mammography 02/02/2025 2:20 PM EDT Narrative 02/02/2025 5:43 PM EDT [facility] [address] [place] [address] Mammography Report Signed Patient: Marilyn Wells I MR#: [id number] : 1975 Acct:[id number] Age/Sex: 49 / F ADM Date: 02/02/25 Loc: HO.MAMMO Attending Dr: Jerri Antunez MD Ordering Physician: Jerri Daniel MD Results: 0Incomplete: Needs Additional Imaging Evaluation Date of Service: 02/02/25 Follow Up: Additional Imagi ng Procedure(s): MM tomosynthesis screening BI Accession Number(s): [id number] cc: Jerri Daniel MD; Rebecca Perez MD [...] 02/02/25 1740 DD/ 1420 TD/TT: 02/02/25 1441 Telephone Quotation Clerk: Procedure Note Donotuseinterpreter, Image - 02/04/2025 [place] [facility] [address] [place], [place] [address] Mammography Report Signed Patient: Marilyn Wells IMR#: [id number] : 1975Acct:[id number] Age/Sex: 49 / FADM Date: 02/02/25 Loc: HO.MAMMO Attending Dr: Jerri Antunez MD Ordering Physician: Jerri Daniel MD Results: 0Incomplete: Needs Additional Imaging Evaluation Date of Service: 02/02/25Follow Up: Additional Imagi ng Procedure(s): MM tomosynthesis screening BI Accession Number(s): [id number] cc: Jerri Daniel MD; Rebecca Perez MD [...] 02/02/25 1740 DD/ 1420 TD/TT: 02/02/25 1441 Telephone Quotation Clerk: [facility] External Provider IMQuang BI PROCEDURES Edited Result - Final from Last 3 Months or Most Recently Relevant to Health Maintenance Insurance * Guarantor: Marilyn Wells I Account Type Relation to Patient Date of Phone Billing Address Personal/Family Self [address] [place] [address] [facility] MEDICA[facility] STAND ADULT * Guarantor: Russell, Marilyn I Account Type Relation to Patient Date of Phone Billing Address Personal/Family Self [address] [place] [address]
--- OUTSIDE RECORDS SUMMARY | 2025-09-23 18:46 | XMS_ITS | Encounter Summary ---
Author Organization [facility] Address [address] [place] [address] [address] [place] [address] Care Team Providers Care Receiving Barn Custodian Name Role Phone Unavailable Primary Care Provider Unavailabl e Reason for Visit * Reason Comments Med Refill Encounter Details Date Type Department Care Team (Late st Contact Info) Description 06/23/2024 Refill [facility] [address] [place] [address] Pop Oneil DDS [address] [place], [place] [phone] Social History Tobacco Use Types Packs/Day Years [...] Description 09/24/2025 1:30 PM EST Office Visit [facility] [address] [place] [address] Rebekah Curiel documented as of this encounter Visit Diagnoses Not on filedocumented in this encounter
== END 2025-09-23 13:40 | disposition home or self-care (01) ==
LOC: HO.HPS 13:14
PROVIDERS: PCP Student in an Organized Health Care Education/Training Program; Visit Provider Internal Medicine Pulmonary Disease
DX: J45.909 Unspecified asthma, uncomplicated (principal); Z91.09 Other allergy status, other than to drugs and biological substances
CPT/HCPCS: 99214

== ENCOUNTER → 2025-09-23 13:13 | Outpatient (BNVA) | payer OTHER, SELFPAY | PROVIDERS: PCP Student in an Organized Health Care Education/Training Program; Visit Provider Internal Medicine Pulmonary Disease | DX: J45.909 Unspecified asthma, uncomplicated (principal); Z91.09 Other allergy status, other than to drugs and biological substances; F17.210 Nicotine dependence, cigarettes, uncomplicated | CPT/HCPCS: 99212 ==

== ENCOUNTER 2025-10-14 12:17 | Outpatient (AMB) | payer OTHER, SELFPAY ==
--- NOTE | 2025-10-14 12:50 | MHC.OFFVIS ---
Vital Signs 10/14/25 12:51 Height 5 ft 6 in Weight 210 lb 5.136 oz BMI 33.9 BP 116/64 Blood Pressure Location Lt brachial Position Sitting Pulse 73 Pulse Source Monitor Intake Visit Reasons: 6 mth f/up It Application Support Analyst Required: No Accompanied by: Self / Same As Patient Allergies No Known Allergies Allergy (Verified 10/14/25 12:53) Medication List - Last Reconciled 10/14/25 by Cory Parham NP acetaminophen 1,000 mg PO Q8H PRN albuterol sulfate 2.5 mg inhalation Q6H PRN albuterol sulfate 90 mcg/actuation (Ventolin HFA) 2 puffs inhalation Q6H PRN amitriptyline 10 mg PO BEDTIME arm brace (DAMON Elbow Brace) as directed aspirin 81 mg PO DAILY atorvastatin 80 mg PO DAILY betamethasone dipropionate 0.05% 1 appl topical BID PRN budesonide-formoterol 80-4.5 mcg/actuation (Symbicort) 1 puff inhalation BID PRN cephalexin 500 mg PO TID 5 days cetirizine 10 mg PO DAILY@1500 ciclopirox 1% 1 ea topical Q7D PRN clobetasol 0.05% 1 appl topical BID clonazepam 1 mg PO TID PRN clonidine HCl 0.1 mg PO 3XD PRN CPAP As directed cyanocobalamin (vitamin B-12) (Vitamin B-12) 1,000 mcg PO DAILY cyclobenzaprine 5 - 10 mg (1 - 2 x 5 mg) PO BEDTIME diclofenac sodium 1% 4 grams topical QID 30 days duloxetine 30 mg PO DAILY dupilumab (Dupixent) 300 mg (2 mL) subcut Q2W famotidine 20 mg PO BID fexofenadine 180 mg PO DAILY fluocinonide 0.05% 1 appl topical BID PRN fremanezumab-vfrm (Ajovy) 225 mg subcut QMONTH hydrochlorothiazide 25 mg PO DAILY hydrocortisone 2.5% 1 appl topical DAILY PRN hydroxychloroquine 200 mg PO BID loratadine 10 mg PO DAILY losartan 100 mg PO DAILY meclizine 25 mg PO TID PRN mirabegron ER (Myrbetriq) 50 mg PO DAILY montelukast 10 mg PO QPM naratriptan 2.5 mg PO DAILY PRN neomycin-polymyxin B-dexameth 3.5mg/mL-10,000 unit/mL-0.1 % 1 drp ophthalmic (eye) QID nicotine 1 patch topical DAILY nitrofurantoin monohyd/m-cryst 100 mg (Macrobid) 100 mg PO BID 5 days nitroglycerin 0.4 mg sublingual Q5M omeprazole 20 mg PO DAILY ondansetron HCl 8 mg PO TID PRN pantoprazole 20 mg PO DAILY pilocarpine HCl 5 mg PO BID PRN pregabalin 200 mg PO BID riboflavin (vitamin B2) 400 mg PO DAILY risperidone 2 mg PO BEDTIME rizatriptan 10 mg PO DAILY PRN sodium fluoride-pot nitrate 1.1-5 % 1 appl PO BID tirzepatide (weight loss) (Zepbound) mg subcut HPI Comments Details: This is a 50-year-old female patient coming in for a follow-up visit. Patient with a history of hypertension, hyperlipidemia, coronary artery disease status post PCI to LAD, sleep apnea, and smoker. Patient has been reporting ongoing chest tightness and shortness of breath since February of this year and had undergone a myocardial perfusion study and an echocardiogram which was normal. Today, patient states that her symptoms had resolved until recently she started getting some chest discomfort with the loss of her grandfather to old age. Patient states that she has been very stressed and gets chest discomfort with this. Patient is otherwise denying any symptoms of exertional chest pain, shortness of breath, palpitations, dizziness, orthopnea, PND, leg edema, presyncope or syncope. Patient is reporting compliance with all medications. Patient continues to smoke 5 cigarettes a day. [facility]LY [facility] Medical History (Updated 10/14/25 @ 13:23 by Cory Parham NP) Dyspnea on exertion Non-ST elevated myocardial infarction (non-STEMI) CAD (coronary artery disease) Smoker Dvt femoral (deep venous thrombosis) Gout GERD (gastroesophageal reflux disease) Vertigo Asthma Migraine Anxiety and depression Fibromyalgia Neuropathy H/O Sjogren's disease Discoid lupus Lupus Surgical History S/P cardiac catheterization Hx of hysterectomy Hx of thumb surgery Hx of knee surgery Family History Other Arthritis Lupus Social History Household Members: Family Housing: Apartment Do you presently have visiting nurse or other home services: No Alcohol intake: former Patient Tobacco Use Status: Current everyday Tobacco user Tobacco use type: Cigarette Cigarette Packs Per Day: 0.5 Cigarettes Per Day: 10.0 service: No Current occupational status: unemployed Review of Systems Const Denies daytime sleepiness, Denies difficulty sleeping, Denies snoring, Denies stops breathing during sleep and Denies weakness Card Reports chest pain, Denies rapid heart rate, Denies irregular heart rhythm, Denies claudication, Denies leg edema, Denies lightheadedness, Denies palpitations, Denies dyspnea, Denies dyspnea on exertion, Denies orthopnea, Denies paroxysmal nocturnal dyspnea and Denies slow heart rate Resp Denies cough, Denies dyspnea, Denies dyspnea on exertion and Denies snoring GI Reports no additional complaints, Denies hematochezia, Denies change in stool character and Denies dyspepsia Musc Denies abnormal gait, Denies muscle weakness and Denies numbness Neuro Denies abnormal gait, Denies numbness and Denies weakness Endo Denies palpitations Physical Exam Vital Signs: Last Vital Signs Pulse 73 10/14/25 12:51 BP 116/64 10/14/25 12:51 BMI result Body Mass Index 33.9 Const General: cooperative, healthy appearing, comfortable and no acute distress Orientation/consciousness: patient oriented x3 HEENT Head: Yes normal to inspection Neck Neck: Yes normal visual inspection, Yes trachea midline and Yes supple Chest Chest palpation & inspection: normal inspection of the chest Resp Effort & Inspection: normal respiratory effort Auscultation: clear to auscultation bilaterally, no crackles, no rales, no rhonchi and no wheezes Cardio Jugular venous distension: no JVD Palpation: normal PMI Rate: regular rate Rhythm: regular rhythm Heart sounds: S1 normal heart sound present, S2 normal heart sound present, no click, no gallops, no murmurs and no rubs Peripheral pulses: Peripheral pulses 2+ throughout GI Inspection: Yes normal to inspection Palpation (GI): Soft to palpation Auscultation: normal bowel sounds Skin General skin exam: no rashes or lesions noted Neuro General: patient oriented x3 Extrem General: Yes normal to inspection, No no pedal edema and No calf tenderness Psych Appearance: grossly normal Mental Status: mental status grossly normal Speech and movement: Normal speech and movement present Office Procedures EKG Details: EKG today showed normal sinus rhythm, rate 73 beats per minute, [place], [place]. [id number], Complete Assessment & Plan Assessment & Plan (1) CAD (coronary artery disease): Code(s): I25.10 - Atherosclerotic heart disease of [place] coronary artery without angina pectoris Category: Medical Plan: 04/28/2024-patient underwent a cardiac catheterization with Dr. Murphy at [facility] at which point it showed 70% stenosis to mid LAD and mild disease in the RCA with successful PCI to LAD. 03/17/2025-echo study showed a normal LV systolic function with an ejection fraction between 60-65%, with no wall motion abnormalities or valvular pathology. 04/06/2025-patient underwent a myocardial perfusion study that showed normal perfusion. Continue lifelong aspirin therapy. Continue high-dose statin therapy, hydrochlorothiazide, and losartan. Patient's symptoms of chest discomfort is atypical in nature and more likely due to stress given the recent loss of family member. However patient has been reporting on and off chest discomfort and therefore we will try low-dose isosorbide. Most recent LDL from August 27 at 57, with an goal of LDL less than 70. We will update this. (2) HTN (hypertension): Code(s): I10 - Essential (primary) hypertension Category: Medical Plan: Blood pressure today is well-controlled. Continue current regimen. Advised blood pressure monitoring at home with a goal less than 130/80. (3) AIRAM (obstructive sleep apnea): Code(s): G47.33 - Obstructive sleep apnea (adult) (pediatric) Category: Medical Plan: Continue CPAP therapy. (4) Smoker: Code(s): F17.200 - Nicotine dependence, unspecified, uncomplicated Category: Social Hx Plan: Patient continues to smoke 5 cigarettes a day and states that she is trying really hard to quit. Emphasized on the need for complete smoking cessation. Patient verbalizes understanding. Emphasized on heart healthy diet, regular exercise, losing weight, smoking cessation, med compliance, and aggressive management of vascular risk factors. Follow up in 6 months, sooner if needed. In the interim, patient will call the office with any concerns or change in symptoms. Advised to seek ER care in case of exertional chest pain not resolved with rest. This note was generated using voice recognition software. While every effort has been made to ensure accuracy and proper transferrer, there may be occasional errors that could affect the content or meaning of the described symptoms. Orders: Orders AMB EKG-In Office Today I25.10 - Atherosclerotic heart disease of [place] coronary artery without angina pectoris Lipid Panel Today I25.10 - Atherosclerotic heart disease of [place] coronary artery without angina pectoris Medications: New isosorbide mononitrate ER 30 mg PO DAILY 30 tabs 0RF Coding Level of Care Code Est Pt Level 4 (35921) Add On Problem Visit Only Diagnoses CAD (coronary artery disease) I25.10 HTN (hypertension) I10 AIRAM (obstructive sleep apnea) G47.33 Smoker F17.200 CPT Codes EKG - CPT: 84269-[id number], Complete ([id number]) Time Spent (min) 32 Comment Time spent in reviewing the chart, test results, assessment, counseling and documentation.
[2025-10-14 12:51] VITALS: BP 116/64; PULSE 73; BMI 33.9
== END 2025-10-14 13:21 | disposition home or self-care (01) ==
LOC: HO.HCS 12:18
PROVIDERS: PCP Student in an Organized Health Care Education/Training Program
DX: I25.10 Atherosclerotic heart disease of native coronary artery without angina pectoris (principal); I10 Essential (primary) hypertension; G47.33 Obstructive sleep apnea (adult) (pediatric); F17.200 Nicotine dependence, unspecified, uncomplicated
CPT/HCPCS: 93010; 99214; G2211

== ENCOUNTER → 2025-10-14 12:17 | Outpatient (BNVA) | payer OTHER, SELFPAY | PROVIDERS: PCP Student in an Organized Health Care Education/Training Program | DX: I25.10 Atherosclerotic heart disease of native coronary artery without angina pectoris (principal); I10 Essential (primary) hypertension; G47.33 Obstructive sleep apnea (adult) (pediatric); F17.210 Nicotine dependence, cigarettes, uncomplicated | CPT/HCPCS: 93005; 99212 ==